=== PATIENT | female | born 1960 | race Caucasian/White ===

== ENCOUNTER 2021-01-09 14:53 | Outpatient (CLI) | payer MEDICARE, SELFPAY ==
--- NOTE | ~2021-01-09 | XR_ITS ---
XR hip LT min 2V DATE: 01/09/2021 15:41 INDICATION: Left hip pain radiating to left thigh. No known injury. TECHNIQUE: AP and lateral views COMPARISON: 06/19/2017 pelvis and bilateral hips FINDINGS: Status post left hip total arthroplasty. No fracture or dislocation, periosteal reaction or bone destruction. Status post lumbar spine surgical fusion. The left sacroiliac joint and the pubic symphysis are intact. IMPRESSION: Left total hip arthroplasty Status post lumbar spine surgical fusion Reviewed, dictated and finalized at location A.
--- NOTE | ~2021-01-09 | XR_ITS ---
EXAMINATION: XR foot LT min 3V EXAM DATE: 01/09/2021 15:42 INDICATION: Bilateral heel pain x 6 months, NKI . TECHNIQUE: Left foot dorsoplantar, lateral and oblique projections obtained and reviewed. Correlation is made to contralateral foot same date. FINDINGS: Left metatarsal bones unremarkable. There is moderate hallux valgus. Bunion. Mild polyart icular primary osteoarthritis. Calcaneus unremarkable. There are no acute fractures or dislocations i dentified. There is no subcutaneous gas. The soft tissue is unremarkable. There are no radiopaque foreign bodies. IMPRESSION: Left foot bunion, hallux valgus, mild polyarticular osteoarthritis. Reviewed, dictated and finalized at location A.
--- NOTE | ~2021-01-09 | XR_ITS ---
EXAMINATION: XR foot RT min 3V EXAM DATE: 01/09/2021 15:42 INDICATION: bilateral heel pain x 6 months. No known recent injury. TECHNIQUE: Right foot dorsoplantar, lateral and oblique projections obtained and reviewed. There is no prior study for comparison. FINDINGS: Right metatarsal bones unremarkable. There are no acute fractures or dislocations identifi ed. There is no subcutaneous gas. The soft tissue is unremarkable. There are no radiopaque foreig n bodies. There is bunion and mild hallux valgus. Mild polyarticular primary osteoarthritis. IMPRESSION: Right-sided bunion, hallux valgus, mild polyarticular osteoarthritis. Reviewed, dictated and finalized at location A. IMPRESSION: Right-sided bunion, hallux valgus, mild polyarticular osteoarthriti s.
--- NOTE | ~2021-01-09 | XR_ITS ---
XR femur LT min 2V DATE: 01/09/2021 15:41 INDICATION: Left hip pain radiating to left thigh TECHNIQUE: AP and lateral views COMPARISON: None FINDINGS: Status post posterior and interbody spinal fusion at L4-5 and L5 laminectomy. The pubic symphysis and sacroiliac joints are intact. Status post left total hip arthroplasty. No fracture, dislocation, periosteal reaction or bone destruction of the left femur. Moderate osteopenia. IMPRESSION: Status post left total hip arthroplasty Status post posterior and interbody spinal fusion at L4-5 Moderate osteopenia Reviewed, dictated and finalized at location A.
== END 2021-01-09 14:54 | disposition home or self-care (01) ==
LOC: CHSIMG 14:57
PROVIDERS: PCP Family Medicine; Visit Provider Family Medicine
DX: M79.671 Pain in right foot (principal); M25.552 Pain in left hip
CPT/HCPCS: 73502; 73552; 73630

== ENCOUNTER 2021-01-15 09:49 | Outpatient (CLI) | payer MEDICARE, SELFPAY ==
--- NOTE | ~2021-01-15 | US_ITS ---
Please refer to diagnostic mammogram report dated 01/15/2021 for details. Reviewed, dictated and finalized at location A.
--- NOTE | ~2021-01-15 | MM_ITS ---
EXAMINATION: MM diag nay implant RT w sandhya HISTORY: Palpable right breast abnormality TECHNIQUE: Additional 3-D tomosynthesis images of the right breast were performed and synthetic 2-D i mages were generated. CAD analysis was submitted and interpreted. High resolution right breast ultras ound was performed. COMPARISON: None BREAST PARENCHYMAL COMPOSITION: Breast composed of scattered areas of fibroglandular density. FINDINGS: MAMMOGRAPHIC FINDINGS: There is an 8 mm mass in the lower outer quadrant of the right breast, middle third. No discrete mass identified in the area of palpable concern. Subpectoral saline implant is present. ULTRASOUND: Limited right breast ultrasound: In the area of palpable concern at 2:00 there is a subtle heterogene ous area, measuring 8 mm in the likely benign. At 7:00, 5 cm from the nipple, there is a slightly irr egular shaped hypoechoic mass measuring 5 x 5 x 5 mm with mixed posterior attenuation, some irregular margins. No internal vascularity. This corresponds to the mass identified on mammography. IMPRESSION: 1. Slightly irregular shaped hypoechoic mass of the right breast at 7:00, 5 cm from the nipple. Ultra sound-guided right breast biopsy recommended. BI-RADS Category 4. 2. Probable benign mass in the area of palpable concern at 2:00, 6 cm from the nipple. Six-month foll ow-up right breast ultrasound recommended. Reviewed, dictated and finalized at location A. IMPRESSION: 1. Slightly irregular shaped hypoechoic mass of the right breast at 7:00, 5 cm from the nipple. Ultrasound-guided right breast biopsy recommended. BI-RADS Cat egory 4. 2. Probable benign mass in the area of palpable concern at 2:00, 6 cm from the nipple. Six-month follow-up right breast ultrasound recommended.
== END 2021-01-15 09:50 | disposition home or self-care (01) ==
PROVIDERS: PCP Family Medicine; Visit Provider Obstetrics & Gynecology
DX: N63.10 Unspecified lump in the right breast, unspecified quadrant (principal); N63.14 Unspecified lump in the right breast, lower inner quadrant
CPT/HCPCS: 76642; 77061; 77065; G0279

== ENCOUNTER 2021-01-23 10:51 | Outpatient (CLI) | payer MEDICARE, MEDICAID, SELFPAY ==
--- NOTE | ~2021-01-23 | US_ITS ---
US thyroid INDICATION: Thyroid nodule TECHNIQUE: Real-time sonographic images of the thyroid gland were obtained. COMPARISON: No prior studies for comparison. FINDINGS: The right thyroid lobe measures 3.6 x 0.8 x 1.5 cm. The left thyroid lobe measures 2.9 x 0 .9 x 1.1 cm. There is normal echotexture and echogenicity throughout the thyroid gland. No discrete n odules identified. Normal vascular flow is present. IMPRESSION: 1. Normal thyroid without discrete nodule or abnormal vascularity. Reviewed, dictated and finalized at location A.
[2021-01-23 11:08] LABS: Add Urine Microscopic? YES; Appearance Urine Clear (Clear); Basophils Absolute Auto 0.06 K/mm3 (0.00-0.10); Basophils Percent Auto 1.3 % (0.0-1.0); Bilirubin Urine Negative (Negative); Blood Urine Negative (Negative); Color Urine Yellow (Yellow); Eosinophils Absolute Auto 0.11 K/mm3 (0.02-0.50); Eosinophils Percent Auto 2.3 % (1.0-6.0); Glucose Urine UA Negative (Negative); Hematocrit 47.3 % (35.0-49.0); Hemoglobin 15.6 g/dL (12.0-15.0); Immature Granulocyte Absolute 0.01 K/mm3 (0.00-0.00); Immature Granulocyte Percent A 0.2 % (0.0-0.0); Ketones Urine Negative (Negative); Leukocyte Esterase Ur 1+ LEU/UL (Negative); Lymphocytes Absolute Auto 1.49 K/mm3 (1.10-4.50); Lymphocytes Percent Auto 31.4 % (18.0-42.0); Mean Corpuscular Hemoglobin 31.2 pg (27.0-31.0); Mean Corpuscular Volume 94.6 fL (78.0-102.0); Mean Platelet Volume 9.7 fl (9.2-11.8); Monocytes Absolute Auto 0.31 K/mm3 (0.10-0.90); Monocytes Percent Auto 6.5 % (2.0-11.0); Neutrophils Absolute Auto 2.8 K/mm3 (1.7-7.2); Neutrophils Percent Auto 58.3 % (50.0-70.0); Nitrate Urine Positive (Negative); Platelet Count Result 204 K/mm3 (150-420); Protein Urine Negative (Negative); Specific Grav Ur 1.015 (1.010-1.020); White Blood Count 4.8 K/mm3 (4.8-10.8); pH Urine 7.5 (5.0-8.0)
[2021-01-23 11:15] LABS: Bacteria Urine 3+ /hpf; RBC Urine None seen /hpf (0-2); Squamous Epithelial Cell Urine Few /hpf (Few)
[2021-01-23 11:49] LABS: Hemoglobin A1C 4.9 % (<5.7)
[2021-01-23 12:25] LABS: Alanine Aminotransferase 53 U/L (14-59); Alkaline Phosphatase 148 U/L (46-116); Anion Gap 8 mmol/L (8-16); Aspartate Amino Transferase 38 U/L (15-37); Bilirubin,Total 0.5 mg/dL (0.00-1.00); Blood Urea Nitrogen 14 mg/dL (7-18); Calcium 9.2 mg/dL (8.5-10.1); Carbon Dioxide 30 mmol/L (21-32); Chloride 105 mmol/L (98-108); Cholesterol 174 mg/dL (0-200); Estimated Glomerular Filt Rate 45; Folic Acid 17.2 ng/mL (8.6->20); Glucose 100 mg/dL (70-99); HDL Direct 51 mg/dL (40-60); LDL Cholesterol Calculated 110 mg/dL (<130); Magnesium 1.9 mg/dL (1.8-2.4); Osmolality Calculated 296 mOsm/kg (285-295); Potassium 4.5 mmol/L (3.5-5.1); Sodium 143 mmol/L (136-145); Total Protein 6.6 g/dL (6.4-8.2); Triglycerides 67 mg/dL (0-150); Uric Acid 4.1 mg/dL (2.6-6.0); Vitamin B12 416 pg/mL (193-986)
[2021-01-23 12:46] LABS: Thyroid Stimulating Hormone Reflex 1.84 u/IU/mL (0.36-3.74)
[2021-01-26 12:29] LABS: Vitamin D 25 Hydroxy 58 ng/mL (30-100)
== END 2021-01-23 10:52 | disposition home or self-care (01) ==
LOC: CHSIMG 10:54
PROVIDERS: PCP Family Medicine; Visit Provider Family Medicine
DX: M13.0 Polyarthritis, unspecified (principal); I10 Essential (primary) hypertension; D64.9 Anemia, unspecified; M10.09 Idiopathic gout, multiple sites; E78.5 Hyperlipidemia, unspecified; E53.8 Deficiency of other specified B group vitamins; E04.1 Nontoxic single thyroid nodule; E66.01 Morbid (severe) obesity due to excess calories; R82.90 Unspecified abnormal findings in urine; G89.4 Chronic pain syndrome; Z79.899 Other long term (current) drug therapy
CPT/HCPCS: 36415; 76536; 80053; 80061; 81001; 82306; 82607; 82746; 83036; 83735; 84443; 84550; 85025; 87077; 87086; 87088; 87186

== ENCOUNTER 2021-02-10 19:42 | Emergency (ER) | payer MEDICARE, MEDICAID, SELFPAY ==
--- NOTE | ~2021-02-10 | XR_ITS ---
EXAMINATION: XR foot LT min 3V EXAM DATE: 02/10/2021 21:40 INDICATION: Fall, left foot pain and numbness, dorsal pain. Initial encounter. TECHNIQUE: Left foot dorsoplantar, lateral and oblique projections obtained and reviewed. Comparison is made to prior examination from 01/09/2021. FINDINGS: Acute closed posttraumatic avulsion fracture at the left 5th proximal phalangeal base medi ally, with the fracture fragment pulled proximally to the level of the joint space. The phalanx is in expected position, not subluxed. Also acute closed posttraumatic fractures of the necks of the 3rd and 4th metatarsal bones. There is overlying soft tissue swelling. Findings are new compared to prior study. There is moderate hallux va lgus and mild 1st MTP osteoarthritis. IMPRESSION: 1. Left 5th proximal phalangeal base avulsion fracture. 2. 4th and 3rd metatarsal neck fractures. Reviewed, dictated and finalized at location A.
--- NOTE | ~2021-02-10 | XR_ITS ---
EXAMINATION: XR tibia fibula LT 2V EXAM DATE: 02/10/2021 21:41 INDICATION: Initial encounter following injury, with pain of the left tibia/fibula. TECHNIQUE: Left tibia/fibula frontal and lateral projections obtained and reviewed. There is no prio r study for comparison. FINDINGS: Left tibial and fibular shafts unremarkable. There are no acute fractures or dislocations identified. There is no subcutaneous gas. The soft tissue is unremarkable. There are no radiopaqu e foreign bodies. IMPRESSION: 1. XR tibia fibula LT 2V exam without acute osseous findings. Reviewed, dictated and finalized at location A.
--- NOTE | ~2021-02-10 | CT_ITS ---
EXAMINATION: CT lumbar spine wo [facility] EXAM DATE: 02/10/2021 21:31 INDICATION: Fall, back pain. Left foot numbness. TECHNIQUE: Spiral CT lumbar spine was performed without contrast. Axial, coronal and sagittal images of the lumbar spine were reviewed. The dose-length product (DLP) for this examination was 1500.94 mGy -cm. The exposure was tailored according to patient size (auto mA exposure control), and iterative r econstruction (ASIR) was used as additional dose reduction technique. There is no prior study for co mparison. FINDINGS: Mild to moderate lumbar levoscoliosis centered at the L1 level. Posterior fusion hardware L4-5. The p edicular screws appear well seated. Moderate to severe disc disease L2-3 and L3-4 and at the lower th oracic levels. Mild compression fracture of T11, but without acute fracture line identified. There i s no evidence of acute lumbar fracture. There is no disc space widening or traumatic vertebral body subluxation suspected. Paraspinal soft tissue is unremarkable. Gastric surgical changes. Hip replac ement hardware. Sacroiliac joints are intact. Overall moderate lumbar facet arthropathy. Moderate to severe left, moderate right neural foraminal stenosis L3-4 and L4-5. A detailed level by level evalua tion of spondylosis can be added as addendum if requested. IMPRESSION: 1. No acute lumbar findings. 2. Intact L4-5 fusion. 3. Mild to moderate levoscoliosis. 4. Chronic T11 compression. 5. Spondylosis. Reviewed, dictated and finalized at location A.
--- NOTE | ~2021-02-10 | XR_ITS ---
EXAMINATION: XR tibia fibula RT 2V EXAM DATE: 02/10/2021 21:51 INDICATION: Right tibial pain. Injury, initial encounter. TECHNIQUE: Right tibia/fibula frontal and lateral projections obtained and reviewed. There is no riccardo or study for comparison. FINDINGS: Right tibial and fibular shafts unremarkable. There are no acute fractures or dislocations identified. There is no subcutaneous gas. The soft tissue is unremarkable. There are no radiopaq ue foreign bodies. IMPRESSION: 1. XR tibia fibula RT 2V exam without acute osseous findings. Reviewed, dictated and finalized at location A.
[2021-02-10 20:45] VITALS: BP 113/73; PULSE 89; RESP 15; TEMP 36.6; O2SAT 94
--- NOTE | 2021-02-10 20:53 | ED.FALL ---
HPI - Fall General Chief Complaint: Fall Stated Complaint: fell off ladder Time Seen by Provider: 02/10/21 20:53 Source: patient Mode of arrival: ambulatory Limitations: no limitations History of Present Illness HPI Narrative: 7-year-old woman with a history of low back pain and lumbar spine surgery comes in today complaining of pain in her lower legs bilaterally and her left foot. Patient states she also has some low back pain. She states that she was standing on the 3rd step of a ladder at home when she lost her balance and fell. She had no upper back, neck or head injuries. She drove herself here today. complaint: fall Onset (ago): hour(s) Fall from: from height (distance) ( Three ladder steps) Fall witnessed: no Place fall occurred: home Loss of consciousness: none Prolonged down time: no Symptoms prior to fall: none Context: tripped/slipped Location of injury: back Location of injury - extremities: Left: foot and Bilateral: lower leg Related Data Home Medications Medication Instructions Recorded Confirmed allopurinol 100 mg PO DAILY 02/10/21 02/10/21 buspirone 30 mg PO DAILY 02/10/21 02/10/21 carvedilol 6,025 mg PO BID 02/10/21 02/10/21 diazepam 10 mg PO DAILY 02/10/21 02/10/21 duloxetine 60 mg PO DAILY 02/10/21 02/10/21 gabapentin 800 mg PO TID 02/10/21 02/10/21 hydroxyzine HCl 50 mg PO TID 02/10/21 02/10/21 meloxicam 7.5 mg PO DAILY 02/10/21 02/10/21 omeprazole 20 mg PO DAILY 02/10/21 02/10/21 phentermine 30 mg PO DAILY 02/10/21 02/10/21 quetiapine 50 mg PO DAILY 02/10/21 02/10/21 quetiapine 100 mg PO DAILY 02/10/21 02/10/21 sertraline 50 mg PO DAILY 02/10/21 02/10/21 sertraline 100 mg PO DAILY 02/10/21 02/10/21 tizanidine 4 mg PO DAILY 02/10/21 02/10/21 Allergies Allergy/AdvReac Type Severity Reaction Status Date / Time No Known Allergies Allergy Unverified 02/01/18 14:35 Review of Systems Constitutional: Constitutional: Denies chills and Denies fever(s) Eyes: Eyes: Denies change in vision and Denies photophobia ENT: Denies nasal congestion and Denies sore throat Cardiovascular: Cardiovascular: Denies chest pain and Denies radiating jaw, neck or arm pain Respiratory: Respiratory: Denies cough and Denies dyspnea Gastrointestinal: Gastrointestinal: Denies abdominal pain, Denies nausea and Denies vomiting Genitourinary: Genitourinary: Denies nocturia and Denies dysuria Integumentary/Breasts: Skin/Breast: Denies pruritus, Denies erythema and Denies rash Neurologic: Denies vertigo, Denies dizziness, Denies syncope, Denies headache(s), Denies focal weakness and Reports numbness ( left distal foot) Hematologic/Lymphatic: Hematologic/Lymphatic: Denies easy bleeding and Denies easy bruising PMFSH Past Medical History Medical History Anemia Anxiety Depression GERD (gastroesophageal reflux disease) Hypertension Surgical History Surgical History H/O gastric bypass H/O lumbosacral spine surgery History of hip surgery Hx of cholecystectomy Family History Family History (Updated 05/02/17 @ 13:47 by DOCTOR UNKNOWN) Other Diabetes mellitus Social History Social History Smoking status: Never smoker Alcohol intake: current Exam Const: General: alert Orientation/consciousness: patient oriented x3 Limitations: no limitations Other: moderate acute distress. HENMT: Head: normal to inspection Ears: external ears normal General nose exam: Normal nares present Face and sinus: normal facial exam Mouth: Yes moist mucous membranes Throat: posterior oropharynx normal Eyes: Conjunctivae: conjunctivae normal Pupils: Equal, round and reactive pupils present EOM: EOMs intact bilaterally Neck: Neck: normal visual inspection Other: No midline tenderness. Normal range of motion. Resp: Effort & Inspection: amandeep
[2021-02-10 23:30] VITALS: BP 116/70; PULSE 83; RESP 14; O2SAT 100
== END 2021-02-10 23:30 | disposition home or self-care (01) ==
PROVIDERS: Emergency Provider Emergency Medicine; PCP Family Medicine
DX: S92.302A Fracture of unspecified metatarsal bone(s), left foot, initial encounter for closed fracture (principal); S92.502A Displaced unspecified fracture of left lesser toe(s), initial encounter for closed fracture; W11.XXXA Fall on and from ladder, initial encounter; K21.9 Gastro-esophageal reflux disease without esophagitis; I10 Essential (primary) hypertension
CPT/HCPCS: 72131; 73590; 73630; 99283; 99284; L2112

== ENCOUNTER 2021-04-02 08:14 | Outpatient (CLI) | payer MEDICARE, MEDICAID, SELFPAY ==
--- NOTE | ~2021-04-02 | XR_ITS ---
XR foot LT min 3V DATE: 04/02/2021 08:34 INDICATION: Left foot pain TECHNIQUE: 4 views COMPARISON: 02/27/2021 left foot FINDINGS: There is prominent callus formation at the minimally displaced fracture at the neck of the third metatarsal bone and lesser callus at the virtually nondisplaced fracture of the neck of the fou rth metatarsal bone. Hallux valgus and bunion deformity. Mild osteoarthritis at the first metatarsophalangeal joint. Os tibiale externum, normal variant. IMPRESSION: Healing fractures of the The third and fourth metatarsal bones, without interval change in position or alignment since 02/28/20 21 Reviewed, dictated and finalized at location B. IMPRESSION: Healing fractures of the The third and fourth metatarsal bones, without interval change in position or a lignment since 02/27/2021
== END 2021-04-02 08:15 | disposition home or self-care (01) ==
LOC: CHSIMG 08:17
PROVIDERS: PCP Family Medicine; Visit Provider Orthopaedic Surgery
DX: M79.672 Pain in left foot (principal)
CPT/HCPCS: 73630

== ENCOUNTER 2021-06-10 04:22 | Inpatient (IN) | payer MEDICARE, MEDICAID, SELFPAY ==
[2021-06-10] VITALS (12 sets, daily range): BP systolic 125–157; BP diastolic 74–99; PULSE 74–88; RESP 16–20; TEMP 36.1–36.6; O2SAT 88–100; BMI 33.7
--- NOTE | ~2021-06-10 | CT_ITS ---
EXAMINATION: CT brain wo con DATE: 06/10/2021 05:16 INDICATION: Unresponsiveness TECHNIQUE: Computed tomography (CT) of the head was performed without intravenous contrast. The mA wa s adjusted according to patient size. Iterative reconstruction technique was employed. Exam dose: 68 1.00 mGy-cm total exam DLP. COMPARISON: None FINDINGS: Bilateral carotid siphon internal carotid artery calcifications. No intracranial mass lesion or hemorrhage or cerebrovascular accident. No midline shift or mass effec t. Normal ventricular size. No subdural or epidural hematoma. No orbital mass lesion. No fracture or bone destruction of the cranial vault. The paranasal sinuses and mastoid air cells are normally developed and aerated. IMPRESSION: No significant abnormality Reviewed, dictated and finalized at [facility]. Reviewed, dictated and finalized at [facility]. IMPRESSION: No significant abnormality
--- NOTE | 2021-06-10 04:28 | ECG_ITS ---
Measurements Intervals [place] Rate: 89 P: 46 NH: 193 QRS: -6 QRSD: 81 T: 8 QT: 326 QTc: 397 Interpretive Statements SINUS RHYTHM LOW QRS VOLTAGE IN PRECORDIAL LEADS CANNOT RULE OUT SEPTAL INFARCT, AGE INDETERMINATE CONSIDER INFERIOR INFARCT, AGE INDETERMINATE BASELINE ARTIFACT- I, II, III, AVR, AVL, AVF, V1-V6 ABNORMAL ECG Electronically Signed On 06-11-2021 8:20:37 CDT by Romeo Valdez D.O.
[2021-06-10] MEDS: SODIUM CHLORIDE 0.9% IV 1,000 ML 999 ML IV CONT (04:40)
--- NOTE | 2021-06-10 04:44 | PC.NURSE ---
dry heaves noted, no emesis
[2021-06-10] MEDS: flumazeniL 0.5 MG/5 ML VIAL 0.2 MG IV PUSH (04:50)
[2021-06-10] MEDS: ONDANSETRON INJ 4 MG/2 ML VIAL IV PUSH (04:50)
--- NOTE | 2021-06-10 04:54 | PC.NURSE ---
oxygen applied per nasal cannula for po 88% 2L increase to 89% then increase to 4 L NC, po up to 94%
--- NOTE | 2021-06-10 05:00 | PC.NURSE ---
[facility]
--- NOTE | 2021-06-10 05:00 | PC.NURSE ---
Pts VSS remain stable, PC notified and orders relayed to ERP Dr Keith. Mon. shows SR, pt remains nonverbal and will open her eyes but is difficult for her to focus, eill not follow commands at this time.
[2021-06-10 05:05] LABS: Base Excess ABG -1.7 mmol/L (0-2); Basophils Absolute Auto 0.06 K/mm3 (0.00-0.10); Basophils Percent Auto 1.1 % (0.0-1.0); Eosinophils Absolute Auto 0.11 K/mm3 (0.02-0.50); Eosinophils Percent Auto 2.1 % (1.0-6.0); HCO3 ABG 23.2 mmol/L (23-29); Hematocrit 45.5 % (35.0-49.0); Immature Granulocyte Absolute 0.02 K/mm3 (0.00-0.00); Immature Granulocyte Percent A 0.4 % (0.0-0.0); Lymphocytes Absolute Auto 1.35 K/mm3 (1.10-4.50); Lymphocytes Percent Auto 25.6 % (18.0-42.0); Mean Corpuscular Hemoglobin 31.8 pg (27.0-31.0); Mean Corpuscular Volume 96.6 fL (78.0-102.0); Mean Platelet Volume 9.6 fl (9.2-11.8); Monocytes Absolute Auto 0.43 K/mm3 (0.10-0.90); Monocytes Percent Auto 8.1 % (2.0-11.0); Neutrophils Absolute Auto 3.3 K/mm3 (1.7-7.2); Neutrophils Percent Auto 62.7 % (50.0-70.0); Oxygen Content ABG 18.3 %vol (16.0-22.0); Oxygen Saturation ABG 93.8 % (95-97); Oxyhemoglobin 93.3 % (94-100); PCO2 ABG 40.1 mmHg (35-45); PO2 ABG 85.6 mmHg (80-90); Platelet Count Result 217 K/mm3 (150-420); Red Blood Count 4.71 M/mm3 (4.20-5.40); Red Cell Distribution Width 13.4 % (11.6-14.4); Total Hemoglobin 13.9 g/dL (12.0-18.0); White Blood Count 5.3 K/mm3 (4.8-10.8); pH ABG 7.38 (7.35-7.45)
[2021-06-10 05:12] LABS: Device NASAL CANNULA; Modified Allen's Test Pass; Site Drawn RIGHT RADIAL
[2021-06-10 05:22] LABS: Lactic Acid Reflex 2.2 mmol/L (0.4-2.0)
[2021-06-10 05:27] LABS: Partial Thromboplastin Time 29.8 SEC (23.90-30.70); Prothrombin Time 10.7 Seconds (9.50-12.10)
[2021-06-10 05:27] LABS: Alanine Aminotransferase 67 U/L (14-59); Albumin Level 3.9 g/dL (3.4-5.0); Alkaline Phosphatase 116 U/L (46-116); Anion Gap 11 mmol/L (8-16); Aspartate Amino Transferase 36 U/L (15-37); Bilirubin,Total 0.5 mg/dL (0.00-1.00); Blood Urea Nitrogen 12 mg/dL (7-18); Calcium 9.3 mg/dL (8.5-10.1); Carbon Dioxide 26 mmol/L (21-32); Chloride 107 mmol/L (98-108); Estimated CRCL calculation 64 ml/min; Estimated Glomerular Filt Rate 52; Glucose 107 mg/dL (70-99); Osmolality Calculated 297 mOsm/kg (285-295); Potassium 3.9 mmol/L (3.5-5.1); Salicylate 1.3 mg/dL (2.8-20.0); Sodium 144 mmol/L (136-145); Thyroid Stimulating Hormone 2.05 uIU/mL (0.36-3.74); Total Protein 6.8 g/dL (6.4-8.2)
[2021-06-10 05:29] LABS: Acetaminophen < 2 ug/mL (10-30); Ethanol < 3 mg/dL (0-6)
[2021-06-10 05:30] LABS: Creatine Kinase 41 U/L (26-192); Magnesium 1.8 mg/dL (1.8-2.4)
--- NOTE | 2021-06-10 05:38 | ED.OVERDOSE ---
HPI - Overdose General Chief Complaint: Overdose Stated Complaint: possible ovedose Source: family and EMS Mode of arrival: EMS Limitations: altered mental status History of Present Illness HPI Narrative: This is a 61-year-old female that presents via EMS with altered mental status after apparent unintentional overdose with multitude of medications not clear what she took but does have history of depression anxiety possible psychosis and chronic pain. The patient apparently called her niece is III to 330 in the morning saying that she thinks she took too much of her nighttime medication. Brought in by EMS the patient is responsive to verbal stimuli but nonverbal, responsive to pain stimuli will arouse when when spoken to and is trying to verbalize few words when asked what her name is and where she lives what her ages. Otherwise her vitals are stable blood pressure is 125/99 O2 sats on 2L are nearly 98 to 100%. Patient is afebrile and vitals are stable. , heart rate is 87 again with a blood pressure of 125/99. MD complaint: accidental overdose Onset (ago): hour(s) Time: 03:38 Timing confirmed by: family member How Overdose Was Discovered: called family/friend Related Data Home Medications Medication Instructions Recorded Confirmed allopurinol 100 mg PO DAILY 02/10/21 05/17/21 duloxetine 60 mg PO DAILY 02/10/21 05/17/21 gabapentin 800 mg PO TID 02/10/21 05/17/21 hydroxyzine HCl 50 mg PO TID 02/10/21 05/17/21 omeprazole 20 mg PO BID 02/10/21 05/17/21 quetiapine 50 mg PO DAILY 02/10/21 05/17/21 quetiapine 100 mg PO DAILY 02/10/21 05/17/21 amitriptyline 150 mg tablet 150 mg PO QHS 02/13/21 05/17/21 calcium citrate 200 mg (950 mg) 1,200 mg PO DAILY tablet 02/13/21 05/17/21 tablet cholecalciferol (vitamin D3) 125 125 mcg PO DAILY 02/13/21 05/17/21 mcg (5,000 unit) capsule carvedilol 6.25 mg PO BID 05/17/21 05/17/21 baclofen 20 mg PO BID PRN 06/10/21 06/10/21 buspirone 10 mg PO TID 06/10/21 06/10/21 diazepam 5 mg PO DAILY PRN 06/10/21 06/10/21 hydrocodone-acetaminophen 1 tablet PO Q6-8H PRN 06/10/21 06/10/21 meloxicam 7.5 mg PO DAILY PRN 06/10/21 06/10/21 sertraline 150 mg PO DAILY 06/10/21 06/10/21 tizanidine 4 mg PO DAILY PRN 06/10/21 06/10/21 Allergies Allergy/AdvReac Type Severity Reaction Status Date / Time clindamycin Allergy Severe Itching Verified 05/17/21 15:53 hydromorphone [From Dilaudid] Allergy Severe Itching Verified 05/17/21 15:53 morphine Allergy Severe Itching Verified 05/17/21 15:53 tramadol AdvReac Severe Palpitation Verified 05/17/21 15:53 s Review of Systems Review of Systems: All systems reviewed & are unremarkable except as noted in HPI and below PMFSH Past Medical History Medical History Acquired hallux valgus of left foot Anemia Anxiety Arthritis Depression Dermatillomania GERD (gastroesophageal reflux disease) History of MRSA infection Hypertension Metatarsal bone fracture Wears glasses Weight gain Surgical History Surgical History H/O gastric bypass H/O lumbosacral spine surgery History of breast lift History of hip surgery History of melanoma excision Hx of cholecystectomy Family History Family History Other Arthritis Depression Diabetes mellitus Esophageal cancer Heart disease High cholesterol Hypertension Neuropathy Social History Social History Smoking status: Never smoker Alcohol intake: current Alcohol use details: 2-3 per month Substance use: never Substance use type: does not use Gender identity (if verbalized by the patient): Female Spiritual care concerns: No Exam Const: Limitations: altered mental status HENMT: Head: normal to inspection Eyes: Conjunctivae: conjunctivae normal Neck: Neck: normal
--- NOTE | 2021-06-10 05:52 | PC.NURSE ---
Addendum entered by Vanda Orourke RN 06/10/21 05:54: Per Natividad at , will need to redraw Tylenol level in 4 hrs. and repeat EKG in 4 hrs. Case # [id number]. Original Note: Leann Henson at , will continue to monitor pt
[2021-06-10 05:56] LABS: Amphetamine Screen Urine Negative (Negative); Barbiturate Screen Urine Negative (Negative); Benzodiazepines Screen Urine Negative (Negative); Cannabinoid Screen Urine Negative (Negative); Cocaine Screen Urine Negative (Negative); Methadone Screen Urine Negative (Negative); Opiate Screen Urine Negative (Negative); Phencyclidine Screen Urine Negative (Negative)
--- NOTE | 2021-06-10 06:01 | PC.NURSE ---
Spoke c pts niece, who is at bedside. ERP discussed POC to admit pt for monitoring and observation and for repeat lab testing.
[2021-06-10 06:05] LABS: SARS-CoV-2 RNA PCR Negative (Negative)
--- NOTE | 2021-06-10 06:20 | PC.NURSE ---
Call back to PC c updated lab results. Orders to continue to monitor and repeat Tylenol level and EKG in 4 hrs. Call to floor for bed assignment. Pt will go to Rm 206.
--- NOTE | 2021-06-10 07:10 | PC.NURSE ---
Patient arrival to second floor from ER with Dx overdose via stretcher. Transfer onto Bed in room 206 A. Eyes open moving rapid left to right lower extremities up and down with feet moving uncontrolling. Respirations even nonlabored no distress noted at this time. Bilateral upper extremities flaccid condition. Right arm with20 g. IV infusing NS @ 100ml/hour. Abd soft round with bowel sounds all quads. Unresponsive to verbal stimuli. Side rails all placed up. Wahl Cath patent draining light Edita urine. 950cc emptied at this time. Will continue to monitor and observe. Turn / reposition every 2 hours. Poison Control to be notified with EKG report when done. QRS to be important noted to them. Will be done by SHARI Rainey.
--- NOTE | 2021-06-10 09:50 | ECG_ITS ---
Measurements Intervals [place] Rate: 97 P: 62 SD: 169 QRS: 14 QRSD: 90 T: 15 QT: 336 QTc: 428 Interpretive Statements SINUS RHYTHM BASELINE ARTIFACT- I, II, III, AVR, AVL, AVF, V1-V6 NORMAL ECG Electronically Signed On 06-11-2021 8:21:07 CDT by Romeo Valdez D.O.
--- NOTE | 2021-06-10 09:55 | PC.NURSE ---
Poison control called to update on repeat EKG. Poison control worker will call back to check in on repeat EKG.
[2021-06-10] MEDS: LORazepam INJ (*CRX) 2 MG/ML VIAL IV PUSH ×2 (10:00→17:56)
[2021-06-10 10:12] LABS: Alanine Aminotransferase 54 U/L (14-59); Albumin Level 3.2 g/dL (3.4-5.0); Alkaline Phosphatase 100 U/L (46-116); Anion Gap 7 mmol/L (8-16); Aspartate Amino Transferase 31 U/L (15-37); Bilirubin,Total 0.4 mg/dL (0.00-1.00); Blood Urea Nitrogen 10 mg/dL (7-18); Calcium 8.8 mg/dL (8.5-10.1); Carbon Dioxide 26 mmol/L (21-32); Chloride 111 mmol/L (98-108); Estimated CRCL calculation 72 ml/min; Estimated Glomerular Filt Rate > 60; Glucose 86 mg/dL (70-99); Magnesium 1.7 mg/dL (1.8-2.4); Osmolality Calculated 296 mOsm/kg (285-295); Potassium 4.2 mmol/L (3.5-5.1); Sodium 144 mmol/L (136-145)
[2021-06-10 10:13] LABS: Lactic Acid 1.2 mmol/L (0.4-2.0)
[2021-06-10 10:15] LABS: Acetaminophen < 2 ug/mL (10-30)
--- NOTE | 2021-06-10 11:22 | PC.NURSE ---
Patient sleeping sammie hose not applied at this time.
--- NOTE | 2021-06-10 11:25 | PM.IMHP ---
H&P: HPI History of Present Illness Date/Time: 06/10/21 11:25 this is a 61-year-old female who presented to our emergency department due to overdose. Patient has a past medical history of anemia, anxiety, arthritis, depression, GERD, and hypertension. Patient is currently unresponsive all information obtained from medical records according to medical records patient called her niece at approximately 3:30 in the morning to inform her that she believes she took too much of her medication. When they arrived to her house patient was unresponsive and and nonverbal. Patient's vital signs pulse 150/96, 88, 20, 97.3, 100% on 3 L nasal cannula, WBCs 5.3 hemoglobin 15, hematocrit 45.5, platelets 217, sodium 144, potassium 3.9, BUN 12, creatinine 1.07, glucose 107, lactic acid 2.2, magnesium 1.8, AST 36, ALT 67, CK 41, toxicology negative, Covid negative, head CT unremarkable, EKG sinus rhythm. Recommend monitoring the patient for 12 to 24-hour patient was given Narcan and flumazenil in the ED. overdose appeared to be unintentional. This day of assessment patient remains unresponsive with fixed pupils, tremors positive for myoclonus Babinski sign negative. Chief Complaint: AMS Review of Systems Review of Systems: ROS unobtainable: Yes unobtainable due to medical condition and unobtainable due to mental status PMFSH Past Medical History Medical History Acquired hallux valgus of left foot Anemia Anxiety Arthritis Depression Dermatillomania GERD (gastroesophageal reflux disease) History of MRSA infection Hypertension Metatarsal bone fracture Wears glasses Weight gain Surgical History Surgical History H/O gastric bypass H/O lumbosacral spine surgery History of breast lift History of hip surgery History of melanoma excision Hx of cholecystectomy Family History Family History Other Arthritis Depression Diabetes mellitus Esophageal cancer Heart disease High cholesterol Hypertension Neuropathy Social History Social History Smoking status: Never smoker Alcohol intake: current Alcohol use details: 2-3 per month Substance use: never Substance use type: does not use Gender identity (if verbalized by the patient): Female Spiritual care concerns: No Meds Home Medications and Allergies Home Medications Medication Instructions Recorded Confirmed Type allopurinol 100 mg PO DAILY 02/10/21 06/10/21 History duloxetine 60 mg PO DAILY 02/10/21 06/10/21 History gabapentin 800 mg PO TID 02/10/21 06/10/21 History hydroxyzine HCl 50 mg PO TID 02/10/21 06/10/21 History omeprazole 20 mg PO BID 02/10/21 06/10/21 History quetiapine 50 mg PO DAILY 02/10/21 06/10/21 History quetiapine 100 mg PO DAILY 02/10/21 06/10/21 History amitriptyline 150 mg tablet 150 mg PO QHS 02/13/21 06/10/21 History calcium citrate 200 mg (950 mg) 1,200 mg PO DAILY tablet 02/13/21 06/10/21 History tablet cholecalciferol (vitamin D3) 125 125 mcg PO DAILY 02/13/21 06/10/21 History mcg (5,000 unit) capsule carvedilol 6.25 mg PO BID 05/17/21 06/10/21 History baclofen 20 mg PO BID PRN 06/10/21 06/10/21 History buspirone 10 mg PO TID 06/10/21 06/10/21 History diazepam 5 mg PO DAILY PRN 06/10/21 06/10/21 History hydrocodone-acetaminophen 1 tablet PO Q6-8H PRN 06/10/21 06/10/21 History meloxicam 7.5 mg PO DAILY PRN 06/10/21 06/10/21 History sertraline 150 mg PO DAILY 06/10/21 06/10/21 History tizanidine 4 mg PO DAILY PRN 06/10/21 06/10/21 History Allergies Allergy/AdvReac Type Severity Reaction Status Date / Time clindamycin Allergy Severe Itching Verified 05/17/21 15:53 hydromorphone [From Dilaudid] Allergy Severe Itching Verified 05/17/21 15:53 morphine Allergy Severe Itching Verified 05/17/21 15:53 tramadol AdvReac Juliana
--- NOTE | 2021-06-10 15:53 | PC.NURSE ---
Call received from Poison Control. Updated on VS and most recent lab results. No change with POC at this time.
[2021-06-10] MEDS: SODIUM CHLORIDE 0.9% IV 1,000 ML 100 ML IV CONT (16:40)
--- NOTE | 2021-06-10 16:42 | PC.NURSE ---
IV from ER infused /complete. New bag infusing/started.
--- NOTE | 2021-06-10 17:45 | PC.NURSE ---
Monica starting to move feet and legs with kicking down into mattress. Eyes open responding with moan sounds unable to speak at this time. RN made aware, Ativan to be given IVP.
--- NOTE | 2021-06-10 22:38 | PC.NURSE ---
pt complaint of back pain , charge nurse notified. no order for pain medication noted. charge nurse to call dr oneill
--- NOTE | 2021-06-10 23:23 | PC.NURSE ---
report to SHARI Mayes
[2021-06-10] MEDS: ACETAMINOPHEN 500 MG TABLET 1000 MG PO (23:46)
[2021-06-11] VITALS: BP 138/84; PULSE 72; PULSE 89; RESP 18; TEMP 36.6; O2SAT 97
--- NOTE | 2021-06-11 | PC.NURSE ---
Patient did not answer questions to perform neuro-check but did follow commands. Hand grasp weak dianne. but would hold bedrail to assist with turn. Frequently asked to be repositioned on side but then turned back to back immediately, asked for heel protectors to be replaced on feet dianne. and patient then kicked them off and repeated request. This nurse repositioned patient on same side three times and replaced heel protectors twice and repositioned arm three times requiring forty minutes to meet patient requests. This nurse was unable to leave room during that time.
--- NOTE | 2021-06-11 00:50 | PC.NURSE ---
Patient had kicked off heel protectors and asked to be turned on side and heel protectors replaced. Continues to bend arm disrupting IV fluid administration. Angeli MCCARTHYtopographical drafter Nurse repositioned patient on side and placed two pillows behind back, and between legs and replaced heel protectors. Reminded patient to keep arm straight.
--- NOTE | 2021-06-11 01:44 | PC.NURSE ---
Spoke with Natividad at [facility] Control and given condition updated. Natividad stated patient needed Psych eval prior to DC when medically cleared. Angeli MCCARTHYbusiness office coordinator Nurse informed.
--- NOTE | 2021-06-11 02:56 | PC.NURSE ---
Addendum entered by Angeli Gold RN 06/11/21 03:08: Addendum entered due to computer suddenly saying waiting for client server programmer and then note closed. Patient says she did finally dial correctly and reached her niece and told her she took too many pills. Patient says she doesn't remember coming to the hospital. Original Note: Patient used call light to call nurse to room saying her cords were all tangled up. Nurse entered room and patient had most of the tape pulled off of IV site, had O2 tubing tangled in IV tubing and had Telemetry wires wrapped around one hand while she had one of her socks on the other hand. Nurse secured IV site and untangled all the cords. After that the patient started asking about nurses she'd had throughout the day, by name. Patient then started telling this nurse about how she came to be @ the hospital, though she thought she was @ [facility]. Patient told this nurse that she had been to the Dr and she's told him she wanted something different then her Tizanidine, and he changed it to Baclofen. Patient said the Dr had told her to be careful and not to take the two meds together. Patient said she already had all her meds sorted in her organizer for 2 weeks and couldn't remember which one she was supposed to take out. She took one pill out and took the rest. Patient said not long after that she felt terrible and couldn't move around much. Patient said she had her phone in her hand but couldn't dial correctly to call her niece and ended up calling her ex-boyfriend instead and so she hung up. Patient says she did then call her niece but it went to voicemail so she hung up. Patient said she knew she was going to . Patient says she laid her head on the table and doesn't know how long she was there. Patient says she kept waking up off and on but couldn't function and again said she knew she was going to but that Jono kept waking her up. Patient says she thought if she could just get to the floor she could lay down, but that as she tried to get to floor she kind of half fell instead. Patient says she did finally dial correctly and reah
[2021-06-11 03:19] VITALS: PULSE 93
[2021-06-11] MEDS: SODIUM CHLORIDE 0.9% IV 1,000 ML 100 ML IV CONT (03:41)
[2021-06-11 04:11] VITALS: BP 123/70; PULSE 78; RESP 18; TEMP 36.7; O2SAT 100
--- NOTE | 2021-06-11 04:13 | PC.NURSE ---
Given fresh ice water, stated that's not water, something was put in it. This nurse assured patient it was water only, she states doesnt taste like water, This nurse called Renata Suh RN to get another glass of water. Patient given water and states tastes okay.
--- NOTE | 2021-06-11 04:54 | PC.NURSE ---
Patient states she doesn't want the water brought in by Charge Nurse and this nurse, states, it tastes funny.
[2021-06-11 05:22] LABS: Hematocrit 45.7 % (35.0-49.0); Hemoglobin 13.8 g/dL (12.0-15.0); Mean Corpuscular HGB Conc 30.2 g/dL (32.0-36.0); Mean Corpuscular Hemoglobin 31.9 pg (27.0-31.0); Mean Corpuscular Volume 105.5 fL (78.0-102.0); Mean Platelet Volume 9.4 fl (9.2-11.8); Platelet Count Result 213 K/mm3 (150-420); Red Blood Count 4.33 M/mm3 (4.20-5.40); Red Cell Distribution Width 13.6 % (11.6-14.4)
[2021-06-11 05:46] LABS: Alanine Aminotransferase 55 U/L (14-59); Albumin Level 3.3 g/dL (3.4-5.0); Alkaline Phosphatase 98 U/L (46-116); Anion Gap 10 mmol/L (8-16); Aspartate Amino Transferase 34 U/L (15-37); Bilirubin,Total 0.5 mg/dL (0.00-1.00); Blood Urea Nitrogen 10 mg/dL (7-18); Calcium 8.4 mg/dL (8.5-10.1); Carbon Dioxide 26 mmol/L (21-32); Chloride 108 mmol/L (98-108); Estimated CRCL calculation 72 ml/min; Estimated Glomerular Filt Rate > 60; Glucose 80 mg/dL (70-99); Magnesium 1.6 mg/dL (1.8-2.4); Osmolality Calculated 296 mOsm/kg (285-295); Potassium 3.8 mmol/L (3.5-5.1); Sodium 144 mmol/L (136-145); Total Protein 5.8 g/dL (6.4-8.2)
--- NOTE | 2021-06-11 07:16 | PC.NURSE ---
Patient rounding completed. Patient is resting in bed.
--- NOTE | 2021-06-11 07:49 | PC.NURSE ---
Patient alert and awake, asking where she is. Oriented patient to time and place. Patient asking if she has anyone here for her. SN explained the no visitor policy. Patient states she needs a few minutes to get her bearings.
[2021-06-11 08:00] VITALS: BP 128/82; PULSE 109; PULSE 97; RESP 18; TEMP 36.6; O2SAT 95
--- NOTE | 2021-06-11 08:07 | PC.NURSE ---
Patient rounding completed. Patient is resting in bed and spoke on the phone with her niece for a bit. Call light within reach.
[2021-06-11] MEDS: busPIRone HCL 5 MG TABLET 10 MG PO (09:20)
[2021-06-11] MEDS: MAGNESIUM OXIDE 400 MG TABLET PO (09:21)
[2021-06-11] MEDS: allopurinoL 100 MG TABLET PO (09:21)
[2021-06-11 09:23] VITALS: PULSE 103
[2021-06-11] MEDS: ENOXAPARIN 40 MG/0.4 ML SYRINGE SUB-Q (09:23)
[2021-06-11] MEDS: carvediloL 6.25 MG TABLET PO (09:23)
--- NOTE | 2021-06-11 09:42 | PM.DS ---
DS: Admitting Diagnosis Discharge Date 06/11/2021 <SE Huggins - Last Filed: 06/11/21 11:17> Admitting Diagnosis Benzo medication overdose <SE Huggins - Last Filed: 06/11/21 11:17> DS: Summary Hospital Course Hospital Course: this is a 61-year-old female who presented to our emergency department due to overdose. Patient has a past medical history of anemia, anxiety, arthritis, depression, GERD, and hypertension. Patient is currently unresponsive all information obtained from medical records according to medical records patient called her niece at approximately 3:30 in the morning to inform her that she believes she took too much of her medication. When they arrived to her house patient was unresponsive and and nonverbal. Recommend monitoring the patient for 12 to 24-hour patient was given Narcan and flumazenil in the ED. overdose appeared to be unintentional. This day of assessment patient remains unresponsive with fixed pupils, tremors positive for myoclonus and negative Babinski sign. Today the patient is alert and orientated x4 able to follow commands without neurological deficiencies. According to patient she recently had a med medication change. Patient notes that she took tizanidine for several years and requested a med change she was given baclofen instead. Patient notes that her primary care physician pacifically informed her and want her against using the 2 together. Patient notes that she had already prepped her medication for the week and was unsure of which p.o. the tizanidine was and all of her medications. Patient notes that she assumed that she would not have a serious side effect like she did as she took it for just 1 day. Patient evaluated for suicide negative for suicide. Patient also emphasized that this was not a suicidal attempt and that she has no intentions on harming herself or anyone else. The patient denies SOB, CP, palpitation, extremity numbness, lightheadedness, dizziness, constipation, diarrhea, chills, or fever. Inpatient Stable Time spent 60 minutes <SE Huggins - Last Filed: 06/11/21 11:17> Time Spent with Patient Time attestation: Total time spent providing and/or coordinating discharge services: <SE Huggins - Last Filed: 06/11/21 11:17> Exam Narrative: GENERAL: This is a well-nourished, well-developed patient, in no apparent distress. HEAD: normocephalic, atraumatic. EYES: PERRL. Sclera clear/white. Vision is grossly intact. EARS: External ears normal, auditory canals clear and without drainage, TMs normal without perforation. Hearing grossly intact. NOSE: External nose normal with no obvious nasal discharge, nares without redness, no rhinorrhea. THROAT: Mucous membranes moist, posterior pharynx clear. NECK: Neck supple, non-tender without lymphadenopathy, masses or thyromegaly. CARDIOVASCULAR: Regular rate and rhythm without murmurs, gallops, or rubs. RESPIRATORY: Clear to auscultation. Breath sounds equal bilaterally. No wheezes, rales, or rhonchi. GASTROINTESTINAL: Abdomen soft, non-tender, nondistended. Bowel sounds are active. No hepato-splenomegaly, or palpable masses. No guarding. SKIN: warm, intact with no suspicious lesions or rash, good texture and turgor. NEURO: awake, alert, and oriented to person, place and time. There were no obvious focal neurologic abnormalities. Steady gait EXTREMITIES: Normal range of motion. No edema. No calf tenderness. Negative Homans sign bilaterally. BACK: Nontender without deformity or crepitance. No flank tenderness. <ALLYSON Huggins-C - Last Filed: 06/11/21 11:17> DS: Data Data Completed and Pending Labs on day of discharge: Labs from last 24 hours 06/11/21 06/11/21 06/10/21 05:02 05:02 09:49 WBC 5.0 RBC 4.33 Hgb 13.8 Hct 45.7 MCV 105.5 H MCH 31.9 H MCHC 30.2 L RDW 13.6 Plt Count 213 MPV 9.4 Sodium 144 Potassium 3.8 Chlor
--- NOTE | 2021-06-11 10:07 | PC.NURSE ---
Patient's camp removed. Patient tolerated well and output for catheter was 675 ml.
--- NOTE | 2021-06-11 10:33 | PC.NURSE ---
Patient ambulated to the restroom; tolerated well with no assistance. Flatulence is present.
--- NOTE | 2021-06-11 11:36 | PC.NURSE ---
Discharge instructions reviewed with patient and patient verbalized understanding. Follow up with primary care physician date and time discussed with patient. Family notified of patient's status of being ready to go home and niece stated she was on her way to strip picker the patient.
[2021-06-11 11:55] VITALS: O2SAT 96
--- NOTE | 2021-06-13 10:41 | PC.NURSE ---
Unable to contact.
== END 2021-06-11 11:55 | disposition home or self-care (01) | DRG 918 ==
LOC: CHSED 05:44 → CHS2ND 06-11 07:56
PROVIDERS: Nurse Practitioner; Admitting Provider Emergency Medicine; Emergency Provider Emergency Medicine; PCP Family Medicine; Visit Provider Emergency Medicine
DX: T50.911A Poisoning by multiple unspecified drugs, medicaments and biological substances, accidental (unintentional), initial encounter (principal); I10 Essential (primary) hypertension; K21.9 Gastro-esophageal reflux disease without esophagitis; M20.12 Hallux valgus (acquired), left foot; M19.90 Unspecified osteoarthritis, unspecified site; F41.9 Anxiety disorder, unspecified; Z20.822 Contact with and (suspected) exposure to COVID-19; F32.A Depression, unspecified; Z98.84 Bariatric surgery status; Z90.49 Acquired absence of other specified parts of digestive tract
CPT/HCPCS: 36415; 36600; 70450; 80053; 80307; 82550; 82805; 83605; 83735; 84443; 85025; 85027; 85610; 85730; 93005; 96361; 96374; 96375; 99285; A9270; C9803; J1650; J2060; J2405; J7030; U0003; U0005

== ENCOUNTER 2021-08-04 00:47 | Emergency (ER) | payer MEDICARE, MEDICAID, SELFPAY ==
--- NOTE | ~2021-08-04 | CT_ITS ---
EXAMINATION: CT chest abdomen pelvis w con DATE: 08/04/2021 02:34 INDICATION: Shortness of breath. Fever and chills. TECHNIQUE: Computed tomography (CT) of the chest, abdomen, and pelvis was performed with 100 mL Omnip aque 350 intravenous contrast. Automated exposure control and iterative reconstruction technique were employed. The dose-length product was 1877.27 mGy-cm. COMPARISON: None FINDINGS: CHEST CT: The lungs demonstrate mild atelectasis. There is a small left pleural effusion. The heart size is nor mal. No pericardial effusion. There are bilateral breast implants. There is severe thoracic spondylos is. ABDOMEN/PELVIS CT: The liver and spleen are normal. The gallbladder is absent. The pancreas and adrenal glands are amandeep l. There is cortical thinning of the kidneys. There are no dilated loops of bowel. There are changes of appendectomy. There are changes of gastric bypass procedure. There is wall thickening of the proxi mal stomach. There is mild mesenteric and retroperitoneal lymphadenopathy. There is no free intraperi toneal fluid. There are bilateral hip arthroplasties. There are changes of posterior fusion procedure at anterior fusion procedure at L4-L5. There is severe lumbar spondylosis. IMPRESSION: 1. Small left pleural effusion. 2. Mild mesenteric and retroperitoneal lymphadenopathy, likely reactive. 3. Surgical changes of recent gastric bypass procedure. Wall thickening of the proximal stomach, cons istent with inflammation versus edema. Reviewed, dictated and finalized at location [facility]. S DONOR RECRUITMENT REPRESENTATIVE IMPRESSION: 1. Small left pleural effusion. 2. Mild mesenteric and retroperitoneal lymphadenopathy, likely reactive. 3. Surgical changes of recent gastric bypass procedure. Wall thickening of the proximal stomach, consistent with inflammation versus edema.
--- NOTE | 2021-08-04 00:53 | ED.GENADULT ---
HPI - General Adult General Chief complaint: Unspecified Stated complaint: UTI Time Seen by Provider: 08/04/21 00:53 Source: patient Mode of arrival: ambulatory History of Present Illness HPI narrative: 61-year-old female with a history of hypertension, anxiety/depression chronic pain GERD, gout, status post gastric bypass forty-three years complicated recurrent vomiting abdominal discomfort. 2013 she reversal of the gastric bypass following which her symptoms improved and she gained back of weight. She followed up with bariatric surgeon who did an EGD 2 days ago by to decrease the size of the gastric pouch. Postprocedure she developed -- Sore throat -- fever with chills -- cough and shortness of breath. She went to [facility] ER. The patient waited for 6 hours and then left AMA after getting some blood work. Dr. Benjamin, the bariatric surgeon called me regarding the labs which revealed a high white cell count, positive UA and bibasilar lung infiltrates. He recommended getting a CT of the chest abdomen and pelvis and IV antibiotics for urinary tract infection. Unable to get a copy of the labs from [facility] this time. MD complaint: fever, cough, shortness of breath past 2 days Onset (ago): day(s) ( 2 days) Relieving factors: none Exacerbating factors: none Associated symptoms: denies other symptoms Treatments prior to arrival: none Related Data Home Medications Medication Instructions Recorded Confirmed allopurinol 100 mg PO DAILY 02/10/21 08/04/21 duloxetine 60 mg PO DAILY 02/10/21 08/04/21 gabapentin 800 mg PO TID 02/10/21 08/04/21 hydroxyzine HCl 50 mg PO TID 02/10/21 08/04/21 omeprazole 20 mg PO BID 02/10/21 08/04/21 quetiapine 50 mg PO DAILY 02/10/21 08/04/21 quetiapine 100 mg PO DAILY 02/10/21 08/04/21 amitriptyline 150 mg tablet 150 mg PO QHS 02/13/21 08/04/21 calcium citrate 200 mg (950 mg) 1,200 mg PO DAILY tablet 02/13/21 08/04/21 tablet cholecalciferol (vitamin D3) 125 125 mcg PO DAILY 02/13/21 08/04/21 mcg (5,000 unit) capsule carvedilol 6.25 mg PO BID 05/17/21 08/04/21 baclofen 20 mg PO BID PRN 06/10/21 08/04/21 buspirone 10 mg PO TID 06/10/21 08/04/21 diazepam 5 mg PO DAILY PRN 06/10/21 08/04/21 hydrocodone-acetaminophen 1 tablet PO Q6-8H PRN 06/10/21 08/04/21 meloxicam 7.5 mg PO DAILY PRN 06/10/21 08/04/21 sertraline 150 mg PO DAILY 06/10/21 08/04/21 Allergies Allergy/AdvReac Type Severity Reaction Status Date / Time clindamycin Allergy Severe Itching Verified 05/17/21 15:53 hydromorphone [From Dilaudid] Allergy Severe Itching Verified 05/17/21 15:53 morphine Allergy Severe Itching Verified 05/17/21 15:53 tramadol AdvReac Severe Palpitation Verified 05/17/21 15:53 s Review of Systems Review of Systems: All systems reviewed & are unremarkable except as noted in HPI and below Constitutional: Constitutional: Reports as per HPI, Reports chills and Reports fever(s) Eyes: Eyes: Reports as per HPI and Reports no additional eye complaints ENT: Reports system reviewed and no additional complaints, except as documented Cardiovascular: Cardiovascular: Reports as per HPI and Reports no additional cardiovascular complaints Respiratory: Respiratory: Reports as per HPI and Reports no additional respiratory complaints Gastrointestinal: Gastrointestinal: Reports as per HPI and Reports no additional gastrointestinal complaints Comments: no abdominal pain /nausea / vomiting / diarrhea. Genitourinary: Genitourinary: Reports no additional female genitourinary complaints Musculoskeletal: Musculoskeletal: Reports no additional musculoskeletal complaints and Reports as per HPI Integumentary/Breasts: Skin/Breast: Reports system reviewed and no additional complaints, except as docu Neurologic: Reports system reviewed and no additional complaints, except as documented Psychiatric: Psychiatric: Reports no additional psychiatric complaints Endocrine: Endocrine: Reports no additional end
--- NOTE | 2021-08-04 00:57 | PC.NURSE ---
patient was in ER at [facility], had labs and started visit. Refused to wait left AMA. Came here after her MD called us & her, Percy unable to send copies of records.
[2021-08-04 01:02] VITALS: BP 110/65; PULSE 86; RESP 20; TEMP 37; O2SAT 96
[2021-08-04 01:36] LABS: Basophils Absolute Auto 0.07 K/mm3 (0.00-0.10); Basophils Percent Auto 0.7 % (0.0-1.0); Eosinophils Absolute Auto 0.15 K/mm3 (0.02-0.50); Eosinophils Percent Auto 1.6 % (1.0-6.0); Hematocrit 41.8 % (35.0-49.0); Hemoglobin 14.1 g/dL (12.0-15.0); Immature Granulocyte Absolute 0.04 K/mm3 (0.00-0.00); Immature Granulocyte Percent A 0.4 % (0.0-0.0); Lymphocytes Absolute Auto 2.08 K/mm3 (1.10-4.50); Lymphocytes Percent Auto 21.7 % (18.0-42.0); Mean Corpuscular HGB Conc 33.7 g/dL (32.0-36.0); Mean Corpuscular Hemoglobin 32.3 pg (27.0-31.0); Mean Corpuscular Volume 95.7 fL (78.0-102.0); Mean Platelet Volume 9.5 fl (9.2-11.8); Monocytes Absolute Auto 1.11 K/mm3 (0.10-0.90); Monocytes Percent Auto 11.6 % (2.0-11.0); Neutrophils Absolute Auto 6.2 K/mm3 (1.7-7.2); Platelet Count Result 222 K/mm3 (150-420); Red Blood Count 4.37 M/mm3 (4.20-5.40); Red Cell Distribution Width 13.2 % (11.6-14.4); White Blood Count 9.6 K/mm3 (4.8-10.8)
[2021-08-04 01:45] LABS: Add Urine Microscopic? YES; Bilirubin Urine Negative (Negative); Blood Urine Negative (Negative); Color Urine Light Yellow (Yellow); Glucose Urine UA Negative (Negative); Ketones Urine Trace (Negative); Leukocyte Esterase Ur 1+ (Negative); Nitrate Urine Positive (Negative); Protein Urine Negative (Negative); Urobilinogen Urine 0.2 mg/dL (0.2-1.0)
[2021-08-04] MEDS: LACTATED RINGERS 1,000 ML 150 ML IV CONT (01:45)
[2021-08-04 01:51] LABS: Appearance Urine Sl Cloudy (Clear); Bacteria Urine 4+ /hpf; RBC Urine 0-2 /hpf (0-2); Squamous Epithelial Cell Urine None seen /hpf (Few); WBC Urine 0-3 /hpf (0-3)
[2021-08-04 01:58] LABS: Alanine Aminotransferase 287 U/L (14-59); Albumin Level 3.4 g/dL (3.4-5.0); Alkaline Phosphatase 166 U/L (46-116); Anion Gap 12 mmol/L (8-16); Aspartate Amino Transferase 121 U/L (15-37); Bilirubin,Total 0.9 mg/dL (0.00-1.00); Blood Urea Nitrogen 16 mg/dL (7-18); Calcium 8.9 mg/dL (8.5-10.1); Carbon Dioxide 26 mmol/L (21-32); Chloride 98 mmol/L (98-108); Estimated CRCL calculation 71 ml/min; Estimated Glomerular Filt Rate 53; Glucose 94 mg/dL (70-99); NT Pro B Type Natriuretic Pept 59 pg/mL (0-125); Osmolality Calculated 283 mOsm/kg (285-295); Potassium 3.4 mmol/L (3.5-5.1); Sodium 136 mmol/L (136-145); Total Protein 7.1 g/dL (6.4-8.2)
[2021-08-04 02:03] LABS: Lipase 80 U/L (73-393)
[2021-08-04] MEDS: levoFLOXacin 500 MG/D5W 100 ML 500 MG/100 ML BAG 100 MG IVPB (02:05)
[2021-08-04 02:06] LABS: Troponin I 7.5 ng/L (0.00-60.4)
[2021-08-04 03:25] VITALS: BP 138/78; PULSE 78; RESP 18; TEMP 36.4; O2SAT 98
--- NOTE | 2021-08-06 13:38 | PC.NURSE ---
cancelled, gave augmentin at 0320
--- NOTE | 2021-08-16 18:28 | PC.NURSE ---
IV stopped [id number]
== END 2021-08-04 03:29 | disposition home or self-care (01) ==
PROVIDERS: Emergency Provider Internal Medicine Critical Care Medicine; PCP Family Medicine
DX: I88.0 Nonspecific mesenteric lymphadenitis (principal); J69.0 Pneumonitis due to inhalation of food and vomit; N30.00 Acute cystitis without hematuria; R06.02 Shortness of breath; K21.9 Gastro-esophageal reflux disease without esophagitis; I10 Essential (primary) hypertension
CPT/HCPCS: 36415; 71260; 74177; 80053; 81001; 83690; 83880; 84484; 85025; 87040; 96361; 96365; 99283; 99284; A9270; J1956; J7120; Q9967

== ENCOUNTER 2021-09-17 08:29 | Outpatient (CLI) | payer MEDICARE, MEDICAID, SELFPAY ==
--- NOTE | ~2021-09-17 | XR_ITS ---
XR foot LT min 3V DATE: 09/17/2021 09:05 INDICATION: Dorsal pain and swelling, erythema. Fracture of the third and fourth metatarsal bones for months ago TECHNIQUE: 3 weightbearing views COMPARISON: 04/02/2021 left foot FINDINGS: There is hallux valgus and bunion deformity. Advanced healing of fractures at the necks of the third and fourth metatarsal bones. No interval frac ture or dislocation, periosteal reaction or bone destruction. IMPRESSION: Hallux valgus and bunion deformity Vascularity of third and fourth metatarsal fractures Reviewed, dictated and finalized at location A. GRASS MANAGEMENT PROFESSOR
== END 2021-09-17 08:30 | disposition home or self-care (01) ==
LOC: CHSIMG 08:32
PROVIDERS: PCP Family Medicine; Visit Provider Orthopaedic Surgery
DX: M79.672 Pain in left foot (principal)
CPT/HCPCS: 73630

== ENCOUNTER 2021-09-21 14:49 | Outpatient (RCR) | payer MEDICARE, MEDICAID, SELFPAY ==
--- NOTE | 2021-09-21 16:14 | PTOPEVAL ---
Thank you for referring Monica Rolon to [facility].? The patient is scheduled to be seen for therapy? ____x/week for ___ weeks. Please review, sign, date and return this plan of care TORITO. I agree with and certify that the following plan of care is medically necessary. Referring Physician Date Admitting Provider: Attending Provider: Dwight Sharma MD Referring Provider: *PT Outpatient Evaluation Start: 09/21/21 15:07 Freq: Status: Active Protocol: Document 09/21/21 15:09 [facility] (Rec: 09/21/21 16:12 [facility] [id number]) Therapy Assessment Status Assessment Status Assessment Status Evaluation Outpatient Past Medical History Neurological History Hx Neurological Disorders No Significant History Cardiovascular History Hx Hypertension Yes Respiratory History Hx Respiratory Disorders No Significant History Gastrointestinal History Hx Cholecystectomy Yes Hx Gastric Bypass Surgery Yes Hx Gastroesophageal Reflux Disease Yes Genitourinary History Hx Genitourinary Disorders No Significant History Musculoskeletal History Hx Joint Replacement Yes: hips Hx Spinal Surgery Yes: [id number] fusion Hematological History Hx Anemia Yes Endocrine History Hx Endocrine Disorders No Significant History HEENT History Hx HEENT Disorders No Significant History Integumentary History Hx Other Skin Disorders Yes: Dermatelamania Reproductive History Hx Post Menopausal Yes Psychosocial History Hx Anxiety Yes Hx Depression Yes Pain History Has Past Pain Affected Your Daily Life Yes: back and hips. History of Long-Term Prescription Pain Yes Medication Use (Opiates) Effective Methods of Pain Control Hydrocodone and tylenol Anesthesia History Hx Anesthesia Reactions No Significant History Evaluation Information Problem Diagnosis L foot pain, fractures, contracture, pre-op Onset 09/17/21 Additional Evaluation Detail LEFS = 76% functionally declined Subjective Information patient reports she has been Query Text:As Reported By Patient/ having pain in the L foot for Family about 2 months. she reports she fractured the L foot about 2 months ago falling off a ladder. she reports the hpain has continued since this fracture, and reports she need bunion surgery. she reports she is coming to therapy for prehab prior to surgery to
--- NOTE | 2022-04-29 16:43 | PCPTNOTE ---
Mrs. Rolon attended a total of 6 treatment sessions from 09/21/21 to 10/16/21. She has failed to return to the clinic and will be discharged from our care at this time. Refer to last daily note for pt. discharge status.
== END 2021-10-16 23:59 | disposition home or self-care (01) ==
LOC: CHSPT 14:49
PROVIDERS: Visit Provider Orthopaedic Surgery
DX: S92.332D Displaced fracture of third metatarsal bone, left foot, subsequent encounter for fracture with routine healing (principal); M20.12 Hallux valgus (acquired), left foot
CPT/HCPCS: 97110; 97140; 97161; 97530

== ENCOUNTER 2021-10-23 12:58 | Emergency (ER) | payer MEDICARE, MEDICAID, SELFPAY ==
--- NOTE | ~2021-10-23 | XR_ITS ---
EXAMINATION: XR chest 1V portable EXAM DATE: 10/23/2021 13:31 INDICATION: Cough,XDays,SOB TECHNIQUE: Portable AP frontal chest x-ray was obtained. Comparison is made to prior examination from 10/02/2017. FINDINGS: Possible small amount of ill-defined basilar airspace disease. There are no pleural effusio ns. The cardiomediastinal silhouette is within normal limits. There is no pneumothorax suspected. The bones and soft tissues are unremarkable. IMPRESSION: Possible small amount of ill-defined basilar airspace disease. Possible viral pneumonia. Reviewed, dictated and finalized at location A. [employer] IMPRESSION: Possible small amount of ill-defined basilar airspace disease. Pos sible viral pneumonia.
[2021-10-23 13:10] VITALS: BP 124/88; PULSE 97; RESP 16; TEMP 36.2; O2SAT 97
--- NOTE | 2021-10-23 13:22 | ED.URI ---
HPI - URI/Sore Throat General Chief Complaint: Upper Respiratory Infection Stated Complaint: cough for a week Time Seen by Provider: 10/23/21 12:59 Source: patient and RN notes reviewed Mode of arrival: ambulatory Limitations: no limitations History of Present Illness MD elicited complaint: cough Onset (ago): week(s) (1) Consistency: intermittent Severity: moderate Pain scale (0-10): 0 Description of mucous: other (none) Able to tolerate fluids by mouth: Yes Exacerbating factors: nothing Relieving factors: cough suppressant Associated symptoms: denies other symptoms Treatments prior to arrival: cold medicine Related Data Home Medications Medication Instructions Recorded Confirmed allopurinol 100 mg PO DAILY 02/10/21 10/23/21 omeprazole 20 mg PO BID 02/10/21 10/23/21 quetiapine 50 mg PO DAILY 02/10/21 10/23/21 quetiapine 100 mg PO DAILY 02/10/21 10/23/21 amitriptyline 150 mg tablet 150 mg PO QHS 02/13/21 10/23/21 calcium citrate 200 mg (950 mg) 1,200 mg PO DAILY tablet 02/13/21 10/23/21 tablet cholecalciferol (vitamin D3) 125 125 mcg PO DAILY 02/13/21 10/23/21 mcg (5,000 unit) capsule carvedilol 6.25 mg PO BID 05/17/21 10/23/21 buspirone 10 mg PO TID 06/10/21 10/23/21 Allergies Allergy/AdvReac Type Severity Reaction Status Date / Time clindamycin Allergy Severe Itching Verified 10/23/21 13:13 hydromorphone [From Dilaudid] Allergy Severe Itching Verified 10/23/21 13:13 morphine Allergy Severe Itching Verified 10/23/21 13:13 tramadol AdvReac Severe Palpitation Verified 10/23/21 13:13 s Review of Systems Review of Systems: All systems reviewed & are unremarkable except as noted in HPI and below Respiratory: Respiratory: Reports cough PMFSH Past Medical History Medical History Acquired hallux valgus of left foot Anemia Anxiety Arthritis Cough Depression Dermatillomania GERD (gastroesophageal reflux disease) History of MRSA infection Hypertension Left foot pain Metatarsal bone fracture Wears glasses Weight gain Surgical History Surgical History H/O gastric bypass H/O lumbosacral spine surgery History of breast lift History of hip surgery History of melanoma excision Hx of cholecystectomy Family History Family History Other Arthritis Depression Diabetes mellitus Esophageal cancer Heart disease High cholesterol Hypertension Neuropathy Social History Social History Smoking status: Former smoker Alcohol intake: unknown Alcohol use details: 2-3 per month Substance use: unknown Substance use type: prescription drug Gender identity (if verbalized by the patient): Female Spiritual care concerns: No Exam Const: General: no acute distress and alert Nutritional Appearance: obese Orientation/consciousness: patient oriented x3 HENMT: Head: normal to inspection Ears: external ears normal, TM's normal bilaterally and EAC's normal General nose exam: Normal external nose present and Normal nares present Face and sinus: sinuses nontender Mouth: Yes lip normal and Yes moist mucous membranes Throat: posterior oropharynx normal Eyes: Conjunctivae: conjunctivae normal Pupils: Equal, round and reactive pupils present EOM: EOMs intact bilaterally Course Course Emergency Course: Pt was stable in the ED. less cough Reevaluation(s) Reevaluation #1: VSS Date: 10/23/21 Time: 13:35 Vital Signs Vital signs: Vital Signs Temperature 36.2 C L 10/23/21 13:10 Pulse Rate 97 10/23/21 13:10 Respiratory Rate 16 10/23/21 13:10 Blood Pressure 124/88 10/23/21 13:10 Pulse Oximetry 97 10/23/21 13:10 Temperature 36.2 C L 10/23/21 13:10 Pulse Rate 97 10/23/21 13:10 Respiratory Rate 16 10/23/21 13:10 Blood Pressure 124/88 02
[2021-10-23] MEDS: guaiFENesin 12 HR 600 MG TABCR PO (13:25)
[2021-10-23] MEDS: cefTRIAXone 1 GM VIAL IM (13:51)
[2021-10-23 14:14] LABS: SARS-CoV-2 Ag Negative (Negative)
[2021-10-23 14:23] VITALS: BP 131/87; PULSE 79; RESP 16; TEMP 36.4; O2SAT 95
== END 2021-10-23 14:24 | disposition home or self-care (01) ==
PROVIDERS: Emergency Provider Emergency Medicine; PCP Family Medicine
DX: J40 Bronchitis, not specified as acute or chronic (principal); Z20.822 Contact with and (suspected) exposure to COVID-19; K21.9 Gastro-esophageal reflux disease without esophagitis; I10 Essential (primary) hypertension; Z87.891 Personal history of nicotine dependence
CPT/HCPCS: 71045; 87426; 96372; 99283; A9270; C9803; J0696

== ENCOUNTER 2021-11-29 00:46 | Day surgery (SDC) | payer MEDICARE, MEDICAID, SELFPAY ==
[2021-11-27 10:52] VITALS: BMI 40.7
--- NOTE | 2021-11-27 11:02 | PC.NURSE ---
Report to the Outpatient Waiting Room, entrance under the green pavilion located off [facility], at time 0600 on date 11/29/21. OR Time: 0730. - You and your visitor will be asked a series of questions to screen for COVID 19 for your protection. - A mask is required within the hospital. One visitor will be allowed to accompany the patient into the hospital. Patients visitor will be instructed to remain with patient at all times or leave the building. We will allow the visitor to come back to the postoperative area when patient is ready. Preoperative COVID Testing Requirements: No COVID Test needed if: (proof is required; if not received patient will have Rapid Test prior to entry) - Patient has received COVID Vaccine at least 14 days prior to procedure date or - Patient has positive COVID test result within last 90 days of surgery date. COVID Test needed if above criteria is not met Patients may have clear liquids (water, carbonated beverages, clear teas, apple juice) until 3 hours prior to surgery with a maximum of 20 ounces. - No food from midnight until time of surgery Take the following medications with a SIP of water the morning of surgery: ALLOPURINOL, BUPROPION, BUSPIRONE, CARVEDILOL, GABAPENTIN, HYDROXYZINE, QUETIAPINE Medications to discontinue per physician: VITAMINS/SUPPLEMENTS Date to take last dose: NO MORE UNTIL AFTER SURGERY Please no make-up, nail malian, hairspray, perfume, deodorant, or body powder the day of surgery. No jewelry (including any body piercings) or valuables the day of surgery, leave them at home. Please take a shower or bath the night before, or the morning of, surgery with an antibacterial soap. Wear comfortable, loose fitting clothing. Children are encouraged to wear pajamas. - Jewelry must be removed prior to entering the operating room. Rings and piercings that are not removed may be cut off. - The hospital will not accept responsibility for valuables. - Please leave all valuables, including medications, at home the day of surgery. If you are going home after surgery, a licensed wrecker driver must drive you home. - NO public transportation without another adult. - We recommend that an adult stay with you for 24 hours following discharge. - We also recommend that you do not drive, make important decision, drink alcoholic beverages, or take any drugs that were not prescribed by your health care provider for at least 24 hours after your discharge time. Follow any additional instructions given to you from your surgeon. Telephone instructions given to JUSTINE LANCE and asked if any additional questions and then verbalized understanding. Patient advised to call surgeon office or pre surgery nurse liaison [phone] if any additional questions.
[2021-11-29] VITALS (7 sets, daily range): BP systolic 116–139; BP diastolic 73–99; PULSE 88–112; RESP 12–16; TEMP 36.1; O2SAT 92–99
--- NOTE | ~2021-11-29 | XR_ITS ---
EXAMINATION: XR surgery orthopedic DATE: 11/29/2021 08:50 INDICATION: Left hallux valgus correction TECHNIQUE: 2 fluoroscopic images of the left forefoot were obtained during procedure performed by Dr. Sharma. Radiologist was not present for the imaging or procedure. The amount of fluoroscopy time us ed during this procedure was 0.2 minutes. COMPARISON: None. FINDINGS: Postoperative changes prior hallux valgus correction with Chevron realignment osteotomy at the neck o f the first metatarsal and osteotomy across the base of the first proximal phalanx with medial sided staple fixation. There has also been a bunionectomy along the medial head neck of the first metatarsa l. The alignment of the axis of the first ray appears near-anatomic. Old healed fracture at the dista l diaphysis of the second metatarsal. No acute fractures. IMPRESSION: 1. Expected appearance post left hallux valgus correction and bunionectomy. See procedure note for fu rther detail. Reviewed, dictated and finalized at location A. IMPRESSION: 1. Expected appearance post left hallux valgus correction and bunionectomy. See procedure note for further detail.
[2021-11-29] MEDS: ACETAMINOPHEN 500 MG TABLET 1000 MG PO (06:57)
--- NOTE | 2021-11-29 07:06 | WPDANESEPPF ---
Anes - Initial Pre Proc Eval Procedure: Operation Date: 11/29/21 07:30 Proposed Procedures p Left Hallux Valgus Correction - Dwight Sharma MD Date/Time: 11/29/21 07:06 Surgeon: Dwight Sharma MD Pre Op Diagnosis: Lt Hallux Valgus Patient Data Age: 61 Gender: F Height: 1.7 m Weight: 117.93 kg Allergies Allergy/AdvReac Type Severity Reaction Status Date / Time clindamycin Allergy Severe Itching Verified 11/27/21 10:49 hydromorphone [From Dilaudid] Allergy Severe Itching Verified 11/27/21 10:49 morphine Allergy Severe Itching Verified 11/27/21 10:49 tramadol AdvReac Severe Palpitation Verified 11/27/21 10:49 s Home Medications Medication Instructions Recorded Confirmed Type allopurinol 100 mg PO DAILY 02/10/21 11/29/21 History omeprazole 20 mg PO BID 02/10/21 11/29/21 History quetiapine 50 mg PO DAILY 02/10/21 11/29/21 History quetiapine 100 mg PO DAILY 02/10/21 11/29/21 History amitriptyline 150 mg tablet 150 mg PO QHS 02/13/21 11/29/21 History calcium citrate 200 mg (950 mg) 1,200 mg PO DAILY tablet 02/13/21 11/29/21 History tablet cholecalciferol (vitamin D3) 125 125 mcg PO DAILY 02/13/21 11/29/21 History mcg (5,000 unit) capsule carvedilol 6.25 mg PO BID 05/17/21 11/29/21 History buspirone 10 mg PO TID 06/10/21 11/29/21 History bupropion HCl 150 mg PO QAM 11/27/21 11/29/21 History gabapentin 800 mg PO TID 11/27/21 11/29/21 History hydroxyzine HCl 50 mg PO TID 11/27/21 11/29/21 History tizanidine 4 mg PO HS 11/27/21 11/29/21 History Patient hx anesthesia problems: none Family hx anesthesia problems: none Results Review: All pre-operative results and documents have been reviewed as part of the pre-operative evaluation. [facility] Past Medical History Medical History Anemia Anxiety Arthritis Cough Depression Dermatillomania GERD (gastroesophageal reflux disease) History of MRSA infection Hypertension Left foot pain Metatarsal bone fracture Wears glasses Weight gain Surgical History Surgical History H/O gastric bypass H/O lumbosacral spine surgery History of breast lift History of hip surgery History of melanoma excision Hx of cholecystectomy Family History Family History Other Arthritis Depression Diabetes mellitus Esophageal cancer Heart disease High cholesterol Hypertension Neuropathy Social History Social History Smoking status: Never smoker Alcohol intake: current Alcohol use details: 2/MONTH Substance use: never Substance use type: does not use Living arrangements: alone Gender identity (if verbalized by the patient): Female Spiritual care concerns: No Anes - Eval Final PreProcedure Day of Procedure 11/29/21 07:06 Patient weight: morbidly obese Heart: regular rate and rhythm Lungs: clear to auscultation Airway: Mallampati scale class II Neurological: alert and oriented Last oral intake: >/= 8 hours ASA classification: III Emergent: no Anesthetic plan: proceed Anesthesia type and monitoring: general LMA and standard monitoring Results Review: All pre-operative results and documents have been reviewed as part of the pre-operative evaluation. Informed Consent: The patient's anesthetic plan and its attendant risks and benefits were discussed with the patient/family/POA. Questions were solicited and answers provided to the satisfaction of the patient/family/POA.
--- NOTE | 2021-11-29 07:14 | WPDHPUPDATE1 ---
History and Physical Update Update Date/Time: 11/29/21 07:14 History and Physical has been reviewed, including an updated exam of the patient. There are NO changes in the patient's condition. Risks, benefits, and alternatives have been discussed and questions answered. Patient agrees to proceed with procedure.
[2021-11-29] MEDS: LACTATED RINGERS 1,000 ML 30 ML IV CONT (07:19)
[2021-11-29] MEDS: KETOROLAC 15 MG/ML VIAL (*BKC) IV PUSH (07:20)
--- NOTE | 2021-11-29 07:22 | SUR.PREOP ---
pt states uses walker at home.
[2021-11-29] MEDS: ceFAZolin 2 GM/D5W 50 ML 2 GM/50 ML BAG IVPB (07:24)
[2021-11-29] MEDS: BUPIVACAINE HCL 0.5% PF 30 ML VIAL INFILTRATE (08:04)
--- NOTE | 2021-11-29 09:09 | P.OP_ITS ---
Procedure Note - Detailed Date of Procedure 11/29/21 Pre-op Diagnosis Lt Hallux Valgus Post-op Diagnosis Same Procedure Performed Left hallux valgus correction with double osteotomy Surgeon Dwight Sharma MD Cpht 1st assistant center director Anesthesia General Indications 61-year-old woman with severe left hallux valgus deformity, pain with shoe wear and daily activity. Failed conservative treatment with toe splinting, strapping and padding with accommodative shoes. Presents for operative treatment. Description of Procedure Patient identified in the preoperative holding. Informed consent given. Operative extremity marked. Patient received intravenous antibiotics. Patient brought to the operating room where underwent general anesthetic by anesthesia team. Positioned supine on operating room table. Time-out performed confirming the patient, site of the surgery and the plan. Left foot prepped draped in the usual sterile surgical fashion using ChloraPrep skin solution. Foot and Ankle exsanguinated and calf tourniquet inflated to 225 mmHg. Longitudinal incision made over the medial eminence and the base of the hallux with a 15 blade knife. Hemostasis controlled with electrocautery. Sensory elements identified and protected. Medial capsulotomy then performed to expose the medial eminence and the metatarsophalangeal joint. Medial eminence resected in line with the medial border of the foot. Lateral release performed through the joint with a 15 blade knife under direct visualization. Chevron shaped osteotomy then completed from medial to lateral with the sagittal saw. The lateral aspect completed with an osteotome. Capital fragment was then displaced laterally and impacted back on the 1st metatarsal shaft. This was provisionally pinned and checked with image intensification. Fixation achieved with 2.0 mm absorbable pin x2. Fluoroscopy confirmed reduction. Residual valgus interphalangeus was noted. Proximal phalangeal osteotomy then performed. Dissection over the medial aspect of the base of the proximal phalanx of the hallux. Retractors placed sagittal saw used to make a medial closing wedge osteotomy. Fixation achieved with a 9 mm Nitinol staple. Image intensification confirmed reduction and hardware placement. Wounds thoroughly irrigated and the capsule repaired with 2-0 Vicryl interrupted suture. Subcutaneous tissue repaired with 3-0 Monocryl interrupted suture and skin repaired with 4-0 nylon running suture. Implants 2.0 mm treatment pending x2, 9 mm Nitinol staple-Arthrex Estimated Blood Loss 10 Tourniquet Time 50 Drains No Packing No Pathology None sent Complications None Condition Stable Disposition PACU
[2021-11-29] MEDS: ARTIFICIAL TEARS OPHTH SOLN 15 ML BOTTLE 1 DROP EACH EYE (09:11)
== END 2021-11-29 10:54 | disposition home or self-care (01) ==
PROVIDERS: PCP Family Medicine; Visit Provider Orthopaedic Surgery
PROC: (CPT 28299; principal; 2021-11-29 07:30)
DX: M20.12 Hallux valgus (acquired), left foot (principal); I10 Essential (primary) hypertension; D64.9 Anemia, unspecified; F41.8 Other specified anxiety disorders; K21.9 Gastro-esophageal reflux disease without esophagitis; Z86.14 Personal history of Methicillin resistant Staphylococcus aureus infection; Z98.84 Bariatric surgery status; E66.01 Morbid (severe) obesity due to excess calories; Z68.41 Body mass index [BMI] 40.0-44.9, adult
CPT/HCPCS: 28299; A9270; C1713; J0330; J0690; J1100; J1200; J1885; J2250; J2405; J2704; J3010; J7120

== ENCOUNTER 2022-01-21 08:06 | Outpatient (CLI) | payer MEDICARE, MEDICAID, SELFPAY ==
--- NOTE | ~2022-01-21 | XR_ITS ---
EXAMINATION: XR foot LT min 3V DATE: 01/21/2022 08:24 INDICATION: Left foot pain. TECHNIQUE: 4 views of left foot were obtained. COMPARISON: Left foot radiographs 12/19/2021 FINDINGS: There are changes of bunionectomy. There is staple fixation of first proximal phalanx. Ther e is an old healed fracture of diaphysis of second metatarsal. There is chronic mild flattening of he ad of second metatarsal, consistent with osteonecrosis (Freiberg's infraction). There is mild osteoar thritis of first and fifth metatarsophalangeal joints. There is heterotopic ossification near fifth m etatarsophalangeal joint. IMPRESSION: 1. Mild polyarticular osteoarthritis. 2. Bunionectomy. Reviewed, dictated and finalized at location A.
== END 2022-01-21 08:07 | disposition home or self-care (01) ==
LOC: CHSIMG 08:08
PROVIDERS: PCP Family Medicine; Visit Provider Orthopaedic Surgery
DX: M79.672 Pain in left foot (principal)
CPT/HCPCS: 73630

== ENCOUNTER 2022-02-14 09:44 | Emergency (ER) | payer MEDICARE, MEDICAID, SELFPAY ==
--- NOTE | ~2022-02-14 | XR_ITS ---
XR elbow RT 2V 02/14/2022 10:37 INDICATION: Right elbow pain PROCEDURE: 2 views right elbow COMPARISON: No prior studies for comparison. FINDINGS: Fracture, dislocation or subluxation is not identified. No significant joint effusion. The soft tissues appear within normal limits. No foreign bodies are identified. IMPRESSION: 1: NO ACUTE BONE OR JOINT ABNORMALITY IDENTIFIED. Reviewed, dictated and finalized at location A.
--- NOTE | ~2022-02-14 | XR_ITS ---
EXAMINATION: XR hand RT 2V DATE: 02/14/2022 10:37 INDICATION: Right hand injury and swelling. TECHNIQUE: 2 views of right hand were obtained. COMPARISON: None. FINDINGS: Bone alignment is normal. No fracture. There is mild osteoarthritis of triscaphe joint, fir st carpometacarpal joint, second metacarpophalangeal joint, and some of the interphalangeal joints. T here is a loose body at first carpometacarpal joint. IMPRESSION: 1. Mild polyarticular osteoarthritis. Reviewed, dictated and finalized at location B.
--- NOTE | ~2022-02-14 | XR_ITS ---
EXAMINATION: XR_CERV2-3V_CR DATE: 02/14/2022 10:39 INDICATION: Posterior neck pain. Fall. TECHNIQUE: 4 views of cervical spine were obtained. COMPARISON: None. FINDINGS: There is 6 degrees levocurvature of cervicothoracic spine. Vertebral body heights are amandeep l. There is moderate to severely decreased disc height from C3-C4 through C6-C7. There is severe bila teral uncovertebral joint osteoarthritis from C3-C4 through C6-C7. There is multilevel mild facet ronak nt osteoarthritis. There is mild central canal stenosis at C3-C4, C4-C5, C5-C6, and C6-C7. No prevert ebral soft tissue swelling. IMPRESSION: 1. Severe cervical spondylosis. Reviewed, dictated and finalized at location B.
--- NOTE | ~2022-02-14 | XR_ITS ---
EXAMINATION: XR shoulder RT min 2V DATE: 02/14/2022 10:38 INDICATION: Posterior right shoulder pain radiating to the elbow post fall TECHNIQUE: AP internally and externally rotated, AP oblique externally rotated and transscapular Y vi ews of the right shoulder were obtained. COMPARISON: None FINDINGS: Normal alignment. No fracture. Mild osteoarthritis at the right glenohumeral and acromioclavicular j oints. Visualized portion of the right lung are clear. Soft tissues are unremarkable. IMPRESSION: Mild right acromioclavicular and glenohumeral osteoarthritis. No acute osseous abnormality. Reviewed, dictated and finalized at location A.
[2022-02-14 10:10] VITALS: BP 125/70; PULSE 96; RESP 16; TEMP 36.3; O2SAT 95
--- NOTE | 2022-02-14 10:45 | ED.FALL ---
HPI - Fall General Chief Complaint: Fall Stated Complaint: fell pain in right arm up to her neck Source: patient Mode of arrival: ambulatory Limitations: no limitations History of Present Illness HPI Narrative: this is a 62-year-old female that presents after she had a fall yesterday causing a cut to her right upper arm is up-to-date with her tetanus has some pain and tenderness in her right hand elbow shoulder and neck area has good range of motion however is some swelling in her right hand and 4th finger with no numbness or tingling. No other injuries no neurological deficits no headache no blurry vision no nausea or vomiting. The patient rates her pain at a 7/10. MD complaint: fall Onset (ago): day(s) Fall from: standing Fall witnessed: no Place fall occurred: home Related Data Home Medications Medication Instructions Recorded Confirmed allopurinol 100 mg tablet 100 mg PO DAILY 02/10/21 01/21/22 omeprazole 20 mg capsule,delayed 20 mg PO BID 02/10/21 01/21/22 release quetiapine 100 mg tablet 100 mg PO DAILY 02/10/21 01/21/22 quetiapine 50 mg tablet 50 mg PO DAILY 02/10/21 01/21/22 amitriptyline 150 mg tablet 150 mg PO QHS 02/13/21 01/21/22 calcium citrate 200 mg (950 mg) 1,200 mg PO DAILY 02/13/21 01/21/22 tablet cholecalciferol (vitamin D3) 125 125 mcg PO DAILY 02/13/21 01/21/22 mcg (5,000 unit) capsule carvedilol 6.25 mg tablet 6.25 mg PO BID 05/17/21 01/21/22 buspirone 10 mg tablet 10 mg PO TID 06/10/21 01/21/22 bupropion HCl 150 mg 24 hr tablet, 150 mg PO QAM 11/27/21 01/21/22 extended release gabapentin 800 mg tablet 800 mg PO TID 11/27/21 01/21/22 hydroxyzine HCl 50 mg tablet 50 mg PO TID 11/27/21 01/21/22 tizanidine 4 mg tablet 4 mg PO HS 11/27/21 01/21/22 Allergies Allergy/AdvReac Type Severity Reaction Status Date / Time clindamycin Allergy Severe Itching Verified 02/14/22 10:19 hydromorphone [From Dilaudid] Allergy Severe Itching Verified 02/14/22 10:19 morphine Allergy Severe Itching Verified 02/14/22 10:19 tramadol AdvReac Severe Palpitation Verified 02/14/22 10:19 s Review of Systems Review of Systems: All systems reviewed & are unremarkable except as noted in HPI and below PMFSH Past Medical History Medical History Anemia Anxiety Arthritis Cough Depression Dermatillomania Encounter for postoperative care GERD (gastroesophageal reflux disease) History of MRSA infection Hypertension Left foot pain Metatarsal bone fracture Wears glasses Weight gain Surgical History Surgical History H/O gastric bypass H/O lumbosacral spine surgery History of breast lift History of hip surgery History of melanoma excision Hx of cholecystectomy Family History Family History Other Arthritis Depression Diabetes mellitus Esophageal cancer Heart disease High cholesterol Hypertension Neuropathy Social History Social History Alcohol intake: current Alcohol use details: 2/MONTH Substance use: never Substance use type: does not use Gender identity (if verbalized by the patient): Female Sexual Orientation (if Verbalized by the Patient): Straight or Heterosexual Spiritual care concerns: No Exam Const: General: healthy appearing, no acute distress and alert Limitations: no limitations HENMT: Head: normal to inspection Ears: external ears normal Face and sinus: normal facial exam Mouth: Yes Normal oral and palatal mucosa present Eyes: Conjunctivae: conjunctivae normal Pupils: Equal, round and reactive pupils present EOM: EOMs intact bilaterally Neck: Neck: normal visual inspection, no lymphadenopathy and no meningeal signs Chest: Chest palpation & inspection: normal inspection of the chest Resp: Effort & Inspection: normal respiratory e
[2022-02-14] MEDS: KETOROLAC (*BKC) 60 MG/2 ML VIAL IM (10:47)
[2022-02-14 11:10] VITALS: BP 109/65; PULSE 80; RESP 16; TEMP 36.8; O2SAT 94
== END 2022-02-14 11:12 | disposition home or self-care (01) ==
PROVIDERS: Emergency Provider Emergency Medicine; PCP Family Medicine
DX: T14.8XXA Other injury of unspecified body region, initial encounter (principal); M19.90 Unspecified osteoarthritis, unspecified site
CPT/HCPCS: 72040; 73030; 73070; 73120; 96372; 99284; A4565; J1885

== ENCOUNTER 2022-04-01 09:49 | Outpatient (CLI) | payer MEDICARE, MEDICAID, SELFPAY ==
[2022-04-01 10:07] LABS: Basophils Absolute Auto 0.06 K/mm3 (0.00-0.10); Basophils Percent Auto 1.2 % (0.0-1.0); Eosinophils Absolute Auto 0.27 K/mm3 (0.02-0.50); Eosinophils Percent Auto 5.5 % (1.0-6.0); Hematocrit 43.5 % (35.0-49.0); Hemoglobin 14.1 g/dL (12.0-15.0); Immature Granulocyte Absolute 0.01 K/mm3 (0.00-0.00); Immature Granulocyte Percent A 0.2 % (0.0-0.0); Lymphocytes Absolute Auto 1.87 K/mm3 (1.10-4.50); Lymphocytes Percent Auto 38.2 % (18.0-42.0); Mean Corpuscular HGB Conc 32.4 g/dL (32.0-36.0); Mean Corpuscular Volume 98.9 fL (78.0-102.0); Mean Platelet Volume 9.1 fl (9.2-11.8); Monocytes Absolute Auto 0.43 K/mm3 (0.10-0.90); Monocytes Percent Auto 8.8 % (2.0-11.0); Neutrophils Absolute Auto 2.3 K/mm3 (1.7-7.2); Neutrophils Percent Auto 46.1 % (50.0-70.0); Platelet Count Result 233 K/mm3 (150-420); Red Cell Distribution Width 13.8 % (11.6-14.4); White Blood Count 4.9 K/mm3 (4.8-10.8)
[2022-04-01 10:16] LABS: Add Urine Microscopic? YES; Appearance Urine Slightly Cloudy (Clear); Bilirubin Urine Negative (Negative); Blood Urine Negative (Negative); Color Urine Light Yellow (Yellow); Glucose Urine UA Negative (Negative); Ketones Urine Negative (Negative); Leukocyte Esterase Ur 1+ LEU/UL (Negative); Nitrate Urine Negative (Negative); Protein Urine Negative (Negative); Urobilinogen Urine 0.2 mg/dL (0.2-1.0)
[2022-04-01 10:25] LABS: Amorphous Sediment Urine Few; Bacteria Urine 1+ /hpf; RBC Urine None seen /hpf (0-2); Renal Epithelial Cells Urine Few /hpf; Squamous Epithelial Cell Urine Few /hpf (Few)
[2022-04-01 10:39] LABS: Hemoglobin A1C 4.9 % (<5.7)
[2022-04-01 11:01] LABS: Alanine Aminotransferase 87 U/L (14-59); Albumin Level 3.6 g/dL (3.4-5.0); Alkaline Phosphatase 122 U/L (46-116); Anion Gap 7 mmol/L (8-16); Aspartate Amino Transferase 40 U/L (15-37); Bilirubin,Total 0.5 mg/dL (0.00-1.00); Blood Urea Nitrogen 15 mg/dL (7-18); Carbon Dioxide 28 mmol/L (21-32); Chloride 108 mmol/L (98-108); Cholesterol 188 mg/dL (0-200); Estimated Glomerular Filt Rate > 60; Glucose 95 mg/dL (70-99); HDL Direct 71 mg/dL (40-60); LDL Cholesterol Calculated 99 mg/dL (<130); Osmolality Calculated 296 mOsm/kg (285-295); Potassium 4.3 mmol/L (3.5-5.1); Sodium 143 mmol/L (136-145); Total Protein 6.6 g/dL (6.4-8.2); Triglycerides 91 mg/dL (0-150); Uric Acid 5.2 mg/dL (2.6-6.0); Vitamin B12 562 pg/mL (193-986)
[2022-04-01 11:02] LABS: Folic Acid > 20.0 ng/mL (8.6->20)
[2022-04-01 11:03] LABS: Free T4 Free Thyroxine Reflex 0.74 ng/dL (0.76-1.46); Thyroid Stimulating Hormone Reflex 3.83 u/IU/mL (0.36-3.74)
[2022-04-04 21:04] LABS: Vitamin D 25 Hydroxy 45 ng/mL (30-100)
== END 2022-04-01 09:50 | disposition home or self-care (01) ==
LOC: CHSLAB 09:53
PROVIDERS: PCP Family Medicine; Visit Provider Family Medicine
DX: G89.4 Chronic pain syndrome (principal); M10.09 Idiopathic gout, multiple sites; N18.30 Chronic kidney disease, stage 3 unspecified; Z87.448 Personal history of other diseases of urinary system; D64.9 Anemia, unspecified; R53.83 Other fatigue; E66.9 Obesity, unspecified; Z79.899 Other long term (current) drug therapy
CPT/HCPCS: 36415; 80053; 80061; 81001; 82306; 82607; 82746; 83036; 84439; 84443; 84550; 85025; 87086; 87088

== ENCOUNTER 2022-09-09 12:59 | Outpatient (RCR) | payer MEDICARE, MEDICAID, SELFPAY ==
--- NOTE | 2022-09-09 14:02 | PTOPEVAL1 ---
Assessment and note entered by Jay Vasquez Evaluation Information Assessment Status Evaluation Diagnosis left foot pain, hallux valgus Onset 12/08/21 Subjective Information Pt. reports that she has developed increasing foot pain about 9 months ago after bunion surgery. She reports that pain is mostly located in the bottom of the front of the foot. She reports that pain is most notable in walking and getting out of bed first thing in the morning. She does not have any pain around the heel. She states that pain has been getting worse. She reports that pain limits her ability to stand and she can stand for 10 minutes at the most. She reports that her goal is to decrease her foot pain with walking. Reported Pain Level Pain Score 4: Self Report Assessment PT Clinical Summary Pt. is a 62 year old female who enters the clinic with left foot pain. She presents with impaired gait, impaired strength, impaired mobility and pain. Continued treatment is indicated in order to improve these areas to allow the pt. to be able to pariticpate in standing activities with less pain. Plan of Care Interventions Electrical Stimulation,Gait Training,Hot Pack/Cold Pack,Manual Therapy,Neuro Re-education, Therapeutic Activities,Therapeutic Exercise, Ultrasound PT Services Indicated Yes Treatment Frequency and 2x/week x 10 visits Duration These treatments will address the objective and functional deficits as defined above. The patient will be advanced safely and appropriately in order for the patient to progress towards his/her prior level of function. Additional exercises will be introduced and as well as a comprehensive home exercise program upon discharge, if needed, ?to ensure carryover of functional gains achieved in the clinic. This treatment plan has been reviewed and agreement upon by the patient.
== END 2022-09-17 15:47 | disposition home or self-care (01) ==
LOC: CHSPT 12:59
PROVIDERS: Visit Provider Orthopaedic Surgery
DX: M79.672 Pain in left foot (principal); M20.12 Hallux valgus (acquired), left foot
CPT/HCPCS: 97014; 97035; 97110; 97161; G0283

== ENCOUNTER 2022-10-01 14:03 | Outpatient (CLI) | payer MEDICARE, MEDICAID, SELFPAY ==
[2022-10-01 15:18] LABS: Thyroid Stimulating Hormone Reflex 4.08 u/IU/mL (0.36-3.74)
[2022-10-01 15:46] LABS: Free T4 Free Thyroxine Reflex 0.75 ng/dL (0.76-1.46)
== END 2022-10-01 14:04 | disposition home or self-care (01) ==
LOC: CHSLAB 14:06
PROVIDERS: PCP Family Medicine; Visit Provider Family Medicine
DX: E03.9 Hypothyroidism, unspecified (principal)
CPT/HCPCS: 36415; 84439; 84443

== ENCOUNTER 2023-02-11 17:02 | Emergency (ER) | payer MEDICARE, MEDICAID, SELFPAY ==
--- NOTE | ~2023-02-11 | XR_ITS ---
EXAM: XR ankle LT min 3V, XR foot LT min 3V DATE: 02/11/2023 17:27 HISTORY: LATERAL PAIN AFTER FALL/PT WOULD NOT FOLLOW DIRECTIONS . COMPARISON: None available. FINDINGS: Decreased mineralization. Nondisplaced oblique fracture of the distal left fibula above th e level of the joint line ([place] C type fracture). Mild hallux valgus with bunionectomy changes. Fixa tion hardware in the first phalanx. Os navicularis. No lytic or blastic lesion. Joint spaces are main tained. No erosion or periosteal change. Soft tissues within normal limits. IMPRESSION: Nondisplaced oblique fracture of the distal left fibula. Reviewed, dictated and finalized at location K. IMPRESSION: Nondisplaced oblique fracture of the distal left fibula.
[2023-02-11 17:02] VITALS: BP 132/90; PULSE 79; RESP 18; TEMP 37.2; O2SAT 98
--- NOTE | 2023-02-11 17:09 | ED.LOWEXIN ---
HPI - Extremity Injury (Lower) General Chief Complaint: Extremity Injury, Lower Stated Complaint: L foot injury Time Seen by Provider: 02/11/23 17:06 Source: patient, EMS and RN notes reviewed Mode of arrival: EMS Limitations: no limitations History of Present Illness MD complaint: ankle injury Onset (ago): minute(s) (20) Injury: Left: ankle and foot Type of Injury: inversion Place: home Severity: severe Relieving factors: other ( fentanyl) Exacerbating factors: movement and palpation Context: fall and walking Associated symptoms: snap/pop sensation, swelling and unable to bear weight Other symptoms: none Treatments prior to arrival: cold therapy Related Data Home Medications Medication Instructions Recorded Confirmed allopurinol 100 mg tablet 100 mg PO DAILY 02/10/21 02/11/23 omeprazole 20 mg capsule,delayed 20 mg PO BID 02/10/21 02/11/23 release quetiapine 100 mg tablet 100 mg PO DAILY 02/10/21 09/24/22 quetiapine 50 mg tablet 50 mg PO DAILY 02/10/21 09/24/22 amitriptyline 150 mg tablet 150 mg PO QHS 02/13/21 09/24/22 calcium citrate 200 mg (950 mg) 1,200 mg PO DAILY 02/13/21 09/24/22 tablet cholecalciferol (vitamin D3) 125 125 mcg PO DAILY 02/13/21 09/24/22 mcg (5,000 unit) capsule carvedilol 6.25 mg tablet 6.25 mg PO BID 05/17/21 02/11/23 buspirone 10 mg tablet 10 mg PO TID 06/10/21 09/24/22 bupropion HCl 150 mg 24 hr tablet, 150 mg PO QAM 11/27/21 02/11/23 extended release gabapentin 800 mg tablet 800 mg PO TID 11/27/21 02/11/23 hydroxyzine HCl 50 mg tablet 50 mg PO TID 11/27/21 09/24/22 tizanidine 4 mg tablet 4 mg PO HS 11/27/21 09/24/22 atomoxetine 60 mg capsule 60 mg PO 11/18/22 Allergies Allergy/AdvReac Type Severity Reaction Status Date / Time clindamycin Allergy Severe Itching Verified 02/11/23 17:17 hydromorphone [From Dilaudid] Allergy Severe Itching Verified 02/11/23 17:17 morphine Allergy Severe Itching Verified 11/18/22 14:04 tramadol AdvReac Severe Palpitation Verified 02/11/23 17:17 s Review of Systems Review of Systems: All systems reviewed & are unremarkable except as noted in HPI and below PMFSH Past Medical History Medical History Anemia Anxiety Arthritis Cough Depression Dermatillomania Encounter for postoperative care GERD (gastroesophageal reflux disease) History of MRSA infection Hypertension Left foot pain Metatarsal bone fracture Metatarsalgia, left foot Patellofemoral arthralgia of both knees Peripheral neuropathy Wears glasses Weight gain Surgical History Surgical History H/O gastric bypass H/O lumbosacral spine surgery History of breast lift History of bunionectomy History of hip surgery History of melanoma excision Hx of cholecystectomy Family History Family History Other Arthritis Depression Diabetes mellitus Esophageal cancer Heart disease High cholesterol Hypertension Neuropathy Social History Social History Smoking status: Unknown if ever smoked Alcohol intake: current Alcohol use details: 2/MONTH Substance use: never Substance use type: does not use Living arrangements: alone Gender identity (if verbalized by the patient): Female Sexual Orientation (if Verbalized by the Patient): Straight or Heterosexual Spiritual care concerns: No Exam Const: General: healthy appearing, no acute distress and alert Nutritional Appearance: well nourished and obese Orientation/consciousness: patient oriented x3 Limitations: no limitations HENMT: Head: normal to inspection Ears: external ears normal Face/Nose/Sinus: Normal external nose present Face and sinus: normal facial exam Mouth: Yes moist mucous membranes Eyes: Conjunctivae: conjunctivae normal Pupils: Equal, round and reactive pupils present EOM: E
== END 2023-02-11 17:56 | disposition home or self-care (01) ==
PROVIDERS: Emergency Provider Emergency Medicine; PCP Family Medicine
DX: S82.832A Other fracture of upper and lower end of left fibula, initial encounter for closed fracture (principal); I10 Essential (primary) hypertension; X50.0XXA Overexertion from strenuous movement or load, initial encounter; Y92.009 Unspecified place in unspecified non-institutional (private) residence as the place of occurrence of the external cause
CPT/HCPCS: 73610; 73630; 99284; L2112

== ENCOUNTER 2023-03-17 09:56 | Outpatient (CLI) | payer MEDICARE, MEDICAID, SELFPAY ==
--- NOTE | ~2023-03-17 | XR_ITS ---
XR ankle LT min 3V DATE: 03/17/2023 10:20 INDICATION: Fracture follow-up TECHNIQUE: 4 views COMPARISON: 02/11/2023 left ankle FINDINGS: There is periosteal reaction consistent with healing at the virtually nondisplaced fracture of the distal fibular shaft. The medial malleolus and the posterior malleolus are intact. Ankle mortise is preserved. No other fra cture or dislocation. IMPRESSION: Healing virtually nondisplaced distal fibular shaft fracture Reviewed, dictated and finalized at location B.
== END 2023-03-17 09:57 | disposition home or self-care (01) ==
LOC: CHSIMG 09:59
PROVIDERS: PCP Family Medicine; Visit Provider Orthopaedic Surgery
DX: S82.832D Other fracture of upper and lower end of left fibula, subsequent encounter for closed fracture with routine healing (principal)
CPT/HCPCS: 73610

== ENCOUNTER 2023-03-24 11:03 | Outpatient (RCR) | payer MEDICARE, MEDICAID, SELFPAY ==
--- NOTE | 2023-03-24 13:16 | OPREHPOC ---
Outpatient Therapy Plan of Care This is a Multidisciplinary Plan of Care that may contain components documented by all disciplines (PT, OT, and ST.) PT Problem 1 PT Problem #1 Knowledge Deficit PT Goal 1 Goal Patient to demonstrate independence with HEP Target Visit 6 PT Problem 2 PT Problem #2 Pain PT Goal 1 Goal 1. Patient to report highest pain at 2/10 2. Patient to report no sleep disturbance due to L LE pain Target Visit 12 PT Problem 3 PT Problem #3 Impaired Range of Motion PT Goal 1 Goal Patient to demonstrate 0-120 deg L knee ROM to improve stair navigation Target Visit 12 PT Problem 4 PT Problem #4 Impaired Strength PT Goal 1 Goal Patient to demonstrate 5/5 strength of L LE in order to return to house hold tasks at PLOF Target Visit 12 PT Problem 5 PT Problem #5 Impaired Functional Mobil PT Goal 1 Goal 1. Patient to demonstrate 20% improvement in LEFS scoring 2. Patient to report ability to walk >30 min with no reports of pain
--- NOTE | 2023-03-24 13:16 | PTOPEVAL1 ---
Assessment and note entered by Eveline Ayala DPT Evaluation Information Diagnosis L LE pain, L achilles pain, L knee pain Onset 02/11/23 Subjective Information Patient reports on February 11 she was entering her house with flip flops on and teipped and broke her distal fibula. She reports she has been in a boot since then but reports lately she has been walking without it in the house. She reports MD stated her fracture is healing well but now she is having L achilles and posterior knee pain. She reports knee pain started after trying to stretch after achilles pain started. She reports difficulty with house hold tasks, walking on uneven surfaces and step navigation. She reports she does have a history of achilles pain. Reported Pain Level Pain Score 0,0: Self Report Assessment PT Clinical Summary Patient is a 63 year old female who presents to PT with L knee pain with history of L fibula fracture and achilles tendonitits. Patient demonstrates decreased L knee ROM, tenderness to the L hamstring and gastroc and L LE weakness impairing her ability to ambulate prolonged distances, complete house hold tasks and navgiate steps into her house. She would benefit from skilled PT to address impairments and return to PLOF. Plan of Care Interventions Electrical Stimulation,Gait Training,Hot Pack/Cold Pack,Manual Therapy,Neuro Re-education,Patient/ Caregiver Educati,Therapeutic Activities, Therapeutic Exercise PT Services Indicated Yes Treatment Frequency and 2x weekly for 12 visits Duration These treatments will address the objective and functional deficits as defined above. The patient will be advanced safely and appropriately in order for the patient to progress towards his/her prior level of function. Additional exercises will be introduced and as well as a comprehensive home exercise program upon discharge, if needed, ?to ensure carryover of functional gains achieved in the clinic. This treatment plan has been reviewed and agreement upon by the patient.
== END 2023-04-09 23:59 | disposition home or self-care (01) ==
LOC: CHSPT 11:03
PROVIDERS: Visit Provider Orthopaedic Surgery
DX: M79.672 Pain in left foot (principal); M76.62 Achilles tendinitis, left leg; M22.2X1 Patellofemoral disorders, right knee; M22.2X2 Patellofemoral disorders, left knee; S82.832D Other fracture of upper and lower end of left fibula, subsequent encounter for closed fracture with routine healing
CPT/HCPCS: 97110; 97140

== ENCOUNTER 2023-04-09 08:21 | Outpatient (CLI) | payer MEDICARE, MEDICAID, SELFPAY ==
--- NOTE | ~2023-04-09 | US_ITS ---
Limited Abdominal Sonogram: Real-time sonographic imaging of the right upper quadrant was performed. Clinical History: Abnormal liver enzymes Findings: The liver appears mildly echogenic, with no evidence of mass lesion or bile duct dilatatio n. Main portal vein demonstrates normal direction of flow. The gallbladder is absent, compatible prio r cholecystectomy. The common bile duct measures 10 mm. The visualized pancreas, aorta, and IVC are unremarkable. Impression: Dilated common bile duct may be related to prior cholecystectomy. Probable diffuse fatty infiltration of liver. Reviewed, dictated and finalized at location M. Impression: Dilated common bile duct may be related to prior cholecystectomy. Probable diffuse fatty infiltration of liver.
[2023-04-09 08:56] LABS: Basophils Absolute Auto 0.06 K/mm3 (0.00-0.10); Basophils Percent Auto 1.2 % (0.0-1.0); Eosinophils Absolute Auto 0.37 K/mm3 (0.02-0.50); Eosinophils Percent Auto 7.4 % (1.0-6.0); Hematocrit 49.6 % (35.0-49.0); Hemoglobin 16.3 g/dL (12.0-15.0); Immature Granulocyte Absolute 0.02 K/mm3 (0.00-0.00); Immature Granulocyte Percent A 0.4 % (0.0-0.0); Lymphocytes Absolute Auto 2.07 K/mm3 (1.10-4.50); Lymphocytes Percent Auto 41.2 % (18.0-42.0); Mean Corpuscular HGB Conc 32.9 g/dL (32.0-36.0); Mean Corpuscular Hemoglobin 32.5 pg (27.0-31.0); Mean Corpuscular Volume 98.8 fL (78.0-102.0); Mean Platelet Volume 9.1 fl (9.2-11.8); Monocytes Absolute Auto 0.42 K/mm3 (0.10-0.90); Monocytes Percent Auto 8.4 % (2.0-11.0); Neutrophils Absolute Auto 2.1 K/mm3 (1.7-7.2); Neutrophils Percent Auto 41.4 % (50.0-70.0); Platelet Count Result 247 K/mm3 (150-420); Red Blood Count 5.02 M/mm3 (4.20-5.40); Red Cell Distribution Width 13.8 % (11.6-14.4)
[2023-04-09 09:12] LABS: Hemoglobin A1C 4.7 % (<5.7)
[2023-04-09 09:39] LABS: Rheumatoid Factor Screen Negative (Negative)
[2023-04-09 10:04] LABS: Alanine Aminotransferase 45 U/L (14-59); Albumin Level 3.9 g/dL (3.4-5.0); Alkaline Phosphatase 138 U/L (46-116); Anion Gap 9 mmol/L (8-16); Aspartate Amino Transferase 27 U/L (15-37); Bilirubin,Total 0.4 mg/dL (0.00-1.00); Blood Urea Nitrogen 15 mg/dL (7-18); Calcium 9.4 mg/dL (8.5-10.1); Carbon Dioxide 29 mmol/L (21-32); Chloride 102 mmol/L (98-108); Cholesterol 164 mg/dL (0-200); Estimated Glomerular Filt Rate 47; Free T3 1.85 pg/mL (2.18-3.98); Glucose 97 mg/dL (70-99); HDL Direct 65 mg/dL (40-60); Iron 97 ug/dL (50-170); LDL Cholesterol Calculated 86 mg/dL (<130); Magnesium 1.8 mg/dL (1.8-2.4); Osmolality Calculated 290 mOsm/kg (285-295); Percent Iron Saturation 32 % (12-57); Potassium 4.9 mmol/L (3.5-5.1); Sodium 140 mmol/L (136-145); Thyroid Stimulating Hormone 2.92 uIU/mL (0.36-3.74); Total Protein 6.9 g/dL (6.4-8.2); Triglycerides 67 mg/dL (0-150); Uric Acid 4.4 mg/dL (2.6-6.0); Vitamin B12 980 pg/mL (193-986)
[2023-04-09 10:05] LABS: Folic Acid > 20.0 ng/mL (8.6->20)
[2023-04-09 11:12] LABS: Appearance Urine Clear (Clear); Bilirubin Urine Negative (Negative); Blood Urine Negative (Negative); Color Urine Yellow (Yellow); Glucose Urine UA Negative (Negative); Ketones Urine Trace (Negative); Leukocyte Esterase Ur Trace LEU/UL (Negative); Nitrate Urine Positive (Negative); Protein Urine Negative (Negative); Urobilinogen Urine 0.2 mg/dL (0.2-1.0)
[2023-04-09 11:21] LABS: Add Urine Microscopic? YES; RBC Urine None seen /hpf (0-2); Squamous Epithelial Cell Urine Rare /hpf (Few); WBC Urine 0-3 /hpf (0-3)
[2023-04-09 11:22] LABS: Bacteria Urine 3+ /hpf
[2023-04-12 05:06] LABS: Thyroid Peroxidase Antibodies 2 IU/mL (<9)
[2023-04-13 12:44] LABS: Mitochondrial (M2) Ab (IgG) <=20.0 U (<=20.0)
[2023-04-13 19:30] LABS: Hepatitis A Antibody IgM Nonreactive; Hepatitis B Core Antibody Nonreactive (Nonreactive); Hepatitis B Surface Antigen Nonreactive (Nonreactive); Hepatitis C Virus Antibody Nonreactive
[2023-04-13 22:44] LABS: Vitamin D 25 Hydroxy 84 ng/mL (30-100)
[2023-04-14 21:31] LABS: LKM 1 Antibody <=20.0 U (<=20.0)
[2023-04-14 22:07] LABS: Anti Cyclic Citrullinated Pept <16 Units (<20)
== END 2023-04-09 08:22 | disposition home or self-care (01) ==
LOC: CHSIMG 08:23
PROVIDERS: PCP Family Medicine; Visit Provider Internal Medicine Endocrinology, Diabetes & Metabolism
DX: R74.8 Abnormal levels of other serum enzymes (principal); E03.9 Hypothyroidism, unspecified; R53.83 Other fatigue; Z79.899 Other long term (current) drug therapy; R73.9 Hyperglycemia, unspecified; K92.89 Other specified diseases of the digestive system
CPT/HCPCS: 36415; 76705; 80053; 80061; 80074; 81001; 82306; 82607; 82746; 83036; 83520; 83540; 83550; 83735; 84439; 84443; 84481; 84550; 85025; 86038; 86200; 86376; 86430; 87077; 87086; 87088; 87186

== ENCOUNTER 2023-09-30 11:46 | Outpatient (CLI) | payer MEDICARE, MEDICAID, SELFPAY ==
--- NOTE | ~2023-09-30 | DEXA_ITS ---
Bone Density Report Name: JUSTINE LANCE Age: 63 Sex: Female Ethnicity: White Date of : 1960 Indication: postmenopausal; screening for osteoporosis; height loss; prior fracture; cancer; Referring Provider: CK, [facility] Study: Bone densitometry was performed. Exam Date: September 30, 2023 Accession number: [id number] Bone Density: Region BMD T-score Z-score Classification AP Spine(L1, L2, L3) 1.239 2.0 3.6 Normal World Health Organization criteria for BMD impression classify patients as: Normal (T-score at or above -1.0), Osteopenia (T-score between -1.0 and -2.5), or Osteoporosis (T-score at or below -2.5). Clinical Information Provided by Patient: Have had a previous hip or vertebral fracture Has had a low trauma fracture Has used the following medications: Vitamin D, Calcium Has the following medical conditions: Cancer Patient maximum height was 68 Menopause Age: 56 No regular weight bearing exercise Drinks caffeinated beverages Onset of menses at age 14 Number of children 1 Impression: The patient has normal bone mass. The patient has risk factors, including: previous fracture. Discussion: INCREASED RISK OF FRACTURE DUE TO HISTORY OF FRACTURE. The patient's previous fracture puts the patient at high risk of a future fracture. In untreated patients, the risk of osteoporotic fracture increases approximately two-fold for each 1.0 SD decrease in T-score. Low bone density is not the only risk factor for fracture; also consider factors such as patient's age, frailty or poor health, risk of falling, risk of injury, previous osteoporotic fracture, family history of osteoporosis, cigarette smoking, low body weight, etc. Not everyone with a low trauma fracture has osteoporosis; osteomalacia and other metabolic bone disorders should also be considered. Patients who have osteoporosis should be evaluated for specific diseases and conditions (secondary causes) that may cause or contribute to bone loss and fracture risk. National Osteoporosis Foundation (NOF) recommends pharmacologic intervention for patients with a prior hip or vertebral fracture regardless of BMD T-score. The patient should follow a healthful lifestyle (good nutrition with adequate calcium and vitamin D, and appropriate weight-bearing exercise). Follow-Up: Consider a repeat BMD and Vertebral Fracture Assessment (VFA) exam in 2 years or sooner if medically necessary, to reassess this patient's status. Reported by: Dr. Avtar Samson on 09/30/2023 12:41:00 PM. Reviewed, dictated and finalized at location A.
--- NOTE | ~2023-09-30 | MM_ITS ---
EXAMINATION: MM scrn nay implant BI w sandhya HISTORY: Screening mammogram TECHNIQUE: Craniocaudal and mediolateral oblique 3-D tomosynthesis images with implant displacement a nd synthetic 2-D images were generated. Craniocaudal and mediolateral oblique views of the breasts wi thout implant displacement were obtained using full field digital mammography. CAD analysis was submi tted and interpreted. COMPARISON: Right mammogram dated 01/15/2021 BREAST PARENCHYMAL COMPOSITION: Breast composed of scattered areas of fibroglandular density FINDINGS: There are asymmetries in the upper outer quadrant of the left breast. The right breast is s table without evidence for malignancy. IMPRESSION: 1. Left breast asymmetries. 2. Additional mammographic views and possible breast ultrasound are recommended. BI-RADS Category 0: Incomplete: Needs additional imaging evaluation. Reviewed, dictated and finalized at location A. ABUSE PROGRAM COORDINATOR IMPRESSION: 1. Left breast asymmetries. 2. Additional mammographic views and possible breast ultrasound are recommended . BI-RADS Category 0: Incomplete: Needs additional imaging evaluation.
[2023-09-30 13:17] LABS: Thyroid Stimulating Hormone Reflex 1.85 u/IU/mL (0.36-3.74)
== END 2023-09-30 11:47 | disposition home or self-care (01) ==
PROVIDERS: PCP Family Medicine; Visit Provider Family Medicine
DX: E03.9 Hypothyroidism, unspecified (principal); Z12.31 Encounter for screening mammogram for malignant neoplasm of breast; Z78.0 Asymptomatic menopausal state; R92.8 Other abnormal and inconclusive findings on diagnostic imaging of breast
CPT/HCPCS: 36415; 77063; 77067; 77080; 84443

== ENCOUNTER 2023-10-17 09:25 | Outpatient (CLI) | payer MEDICARE, MEDICAID, SELFPAY ==
--- NOTE | ~2023-10-17 | MMUS_ITS ---
EXAMINATION: MM diagnostic nay LT w sandhya, US breast LT limited HISTORY: Left breast asymmetries on screening mammogram TECHNIQUE: Additional 3-D tomosynthesis images of the left breast were performed and synthetic 2-D im ages were generated. CAD analysis was submitted and interpreted. High resolution limited left breast ultrasound was performed. COMPARISON: 09/30/2023 FINDINGS: MAMMOGRAPHIC FINDINGS: There is persistent focal asymmetry in the upper outer quadrant of the left breast. No suspicious mas s, calcification, or architectural distortion are identified. There is a 4 mm round, circumscribed, e qual density mass in the far outer breast at the 2:00 location, 14 cm from the nipple. ULTRASOUND: No suspicious cystic or solid mass is identified. There are multiple cysts in the upper outer quadran t of the breast which measure up to 4 mm. IMPRESSION: 1. Probably benign left breast focal asymmetry. 2. Recommend 6 month follow-up left diagnostic mammogram and possible ultrasound. BI-RADS category 3, probably benign findings. Reviewed, dictated and finalized at location A. TYPEWRITER INSTALLER IMPRESSION: 1. Probably benign left breast focal asymmetry. 2. Recommend 6 month follow-up left diagnostic mammogram and possible ultrasoun d. BI-RADS category 3, probably benign findings.
== END 2023-10-17 09:26 | disposition home or self-care (01) ==
LOC: CHSIMG 09:28
PROVIDERS: PCP Family Medicine; Visit Provider Family Medicine
DX: R92.8 Other abnormal and inconclusive findings on diagnostic imaging of breast (principal)
CPT/HCPCS: 76642; 77061; 77065; G0279

== ENCOUNTER 2024-05-25 08:47 | Outpatient (CLI) | payer MEDICARE, MEDICAID, SELFPAY ==
--- NOTE | ~2024-05-25 | MMUS_ITS ---
EXAMINATION: MM diag nay implant LT w sandhya, US breast LT limited HISTORY: Follow-up left breast asymmetry TECHNIQUE: Additional 3-D tomosynthesis images of the left breast were performed and synthetic 2-D im ages were generated. CAD analysis was submitted and interpreted. High resolution Limited left breast ultrasound was performed. COMPARISON: Comparison to multiple prior studies sequentially, with oldest reviewed study dated 09/30. BREAST PARENCHYMAL COMPOSITION: Not dense: There are scattered areas of fibroglandular density. FINDINGS: MAMMOGRAPHIC FINDINGS: Asymmetries in the upper central aspect of the left breast are stable. There are no suspicious calcif ications or architectural distortion. No new masses, calcifications or architectural distortion. ULTRASOUND: Limited left breast ultrasound: At 12:00, 5 cm from the nipple there is an oval 4 mm mass with roller maker ior shadowing, likely benign oral cysts. At 12:00, 5 cm from the nipple there is a oval 4 mm hypoecho ic mass with low level internal echoes and minimal posterior acoustic enhancement, likely complicated cyst. At 12:00, 5 cm from the nipple there is a 5 mm cyst. IMPRESSION: 1. Probable benign left breast masses. 2. Recommend 6 month follow-up diagnostic bilateral mammogram and Limited left breast ultrasound BI-RADS category 3, probably benign findings. Reviewed, dictated and finalized at location B. IMPRESSION: 1. Probable benign left breast masses. 2. Recommend 6 month follow-up diagnostic bilateral mammogram and Limited left breast ultrasound BI-RADS category 3, probably benign findings.
== END 2024-05-25 08:48 | disposition home or self-care (01) ==
LOC: CHSIMG 08:50
PROVIDERS: PCP Family Medicine; Visit Provider Family Medicine
DX: R92.8 Other abnormal and inconclusive findings on diagnostic imaging of breast (principal)
CPT/HCPCS: 76642; 77061; 77065; G0279

== ENCOUNTER 2024-05-29 10:45 | Emergency (ER) | payer MEDICARE, MEDICAID, SELFPAY ==
--- NOTE | ~2024-05-29 | XR_ITS ---
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 There is hallux valgus. Lisfranc joint intact. No acute fracture or traumatic malali gnment. No focal soft tissue abnormality. Impression: 1: No acute fracture. Reviewed, dictated and finalized at location B. Impression: 1: No acute fracture.
--- NOTE | ~2024-05-29 | XR_ITS ---
XR ankle LT min 3V 05/29/2024 11:03 Indication: Left ankle pain after fall Procedure: 3 views left ankle Comparison: No prior studies for comparison. Findings: There is an old healed distal fibular diaphyseal fracture. Ankle mortise intact. No acute f racture or traumatic malalignment. No focal soft tissue abnormality. Impression: 1: No acute abnormality of the left ankle. Reviewed, dictated and finalized at location A. Impression: 1: No acute abnormality of the left ankle.
[2024-05-29 10:46] VITALS: BP 139/99; PULSE 91; RESP 20; TEMP 36.7; O2SAT 97
[2024-05-29] MEDS: KETOROLAC 30 MG/ML VIAL (*BKC) IM (11:10)
--- NOTE | 2024-05-29 11:34 | ED.LOWEXIN ---
HPI - Extremity Injury (Lower) General Chief Complaint: Extremity Injury, Lower Stated Complaint: left foot pain Time Seen by Provider: 05/29/24 10:51 Source: patient Mode of arrival: ambulatory Limitations: no limitations History of Present Illness HPI Narrative: patient here today with fall that occurred yesterday causing injury to her left foot and ankle with some mild swelling and pain that she rates about an 8/10. No other injuries has good range of motion and good pulses on the left foot with some no numbness or tingling. MD complaint: ankle injury and foot injury Onset (ago): day(s) Related Data Home Medications Medication Instructions Recorded Confirmed allopurinol 100 mg tablet 100 mg PO DAILY 02/10/21 03/17/23 omeprazole 20 mg capsule,delayed 20 mg PO BID 02/10/21 03/17/23 release quetiapine 100 mg tablet 100 mg PO DAILY 02/10/21 03/17/23 quetiapine 50 mg tablet 50 mg PO DAILY 02/10/21 03/17/23 amitriptyline 150 mg tablet 150 mg PO QHS 02/13/21 03/17/23 calcium citrate 200 mg (950 mg) 1,200 mg PO DAILY 02/13/21 03/17/23 tablet cholecalciferol (vitamin D3) 125 125 mcg PO DAILY 02/13/21 03/17/23 mcg (5,000 unit) capsule carvedilol 6.25 mg tablet 6.25 mg PO BID 05/17/21 03/17/23 buspirone 10 mg tablet 10 mg PO TID 06/10/21 03/17/23 bupropion HCl 150 mg 24 hr tablet, 150 mg PO QAM 11/27/21 03/17/23 extended release gabapentin 800 mg tablet 800 mg PO TID 11/27/21 03/17/23 hydroxyzine HCl 50 mg tablet 50 mg PO TID 11/27/21 03/17/23 tizanidine 4 mg tablet 4 mg PO HS 11/27/21 03/17/23 atomoxetine 60 mg capsule 60 mg PO 11/18/22 03/17/23 Allergies Allergy/AdvReac Type Severity Reaction Status Date / Time clindamycin Allergy Severe Itching Verified 03/17/23 10:26 hydromorphone [From Dilaudid] Allergy Severe Itching Verified 03/17/23 10:26 morphine Allergy Severe Itching Verified 03/17/23 10:26 tramadol AdvReac Severe Palpitation Verified 03/17/23 10:26 s Review of Systems Review of Systems: All systems reviewed & are unremarkable except as noted in HPI and below PMFSH Past Medical History Medical History Achilles tendinitis, left leg Anemia Anxiety Arthritis Cough Depression Dermatillomania Encounter for postoperative care Fracture of distal end of left fibula GERD (gastroesophageal reflux disease) History of MRSA infection Hypertension Left foot pain Metatarsal bone fracture Metatarsalgia, left foot Patellofemoral arthralgia of both knees Peripheral neuropathy Wears glasses Weight gain Surgical History Surgical History H/O gastric bypass H/O lumbosacral spine surgery History of breast lift History of bunionectomy History of hip surgery History of melanoma excision Hx of cholecystectomy Family History Family History Other Arthritis Depression Diabetes mellitus Esophageal cancer Heart disease High cholesterol Hypertension Neuropathy Social History Social History Smoking status: Unknown if ever smoked Alcohol intake: current Alcohol use details: 2/MONTH Substance use: never Substance use type: does not use Living arrangements: alone Gender identity (if verbalized by the patient): Female Sexual Orientation (if Verbalized by the Patient): Straight or Heterosexual Spiritual care concerns: No Exam Const: General: healthy appearing and no acute distress Nutritional Appearance: well nourished Orientation/consciousness: patient oriented x3 Limitations: no limitations Neck: Neck: normal visual inspection Chest: Chest palpation & inspection: normal inspection of the chest Resp: Effort & Inspection: normal respiratory effort Auscultation: clear to auscultation bilaterally Skin: General skin exam: normal color Rashes: no kuldip
[2024-05-29 11:59] VITALS: BP 136/89; PULSE 85; RESP 18; TEMP 36.5; O2SAT 97
== END 2024-05-29 12:04 | disposition home or self-care (01) ==
PROVIDERS: Emergency Provider Emergency Medicine
DX: S93.602A Unspecified sprain of left foot, initial encounter (principal); I10 Essential (primary) hypertension; W19.XXXA Unspecified fall, initial encounter
CPT/HCPCS: 73610; 73630; 96372; 99283; J1885

== ENCOUNTER 2024-12-15 15:46 | Emergency (ER) | payer MEDICARE, MEDICAID, SELFPAY ==
--- NOTE | ~2024-12-15 | CT_ITS ---
CT brain wo con Ordering provider: Varun Delarosa MD History: 64 years Female with . accidental fall, hit right side of head . Comparison: June 10, 2021 Technique: CT of the head without contrast. Radiation reduction technique utilized. The dose-length p roduct was 681 mGy-cm. FINDINGS: BRAIN PARENCHYMA AND CSF SPACES: No midline shift, mass effect or hemorrhage. The brain parenchyma a nd CSF spaces are otherwise normal. VISUALIZED PARANASAL SINUSES: Well aerated. MASTOIDS: Well aerated. BONES: The bones appear intact. SOFT TISSUES: Visualized nasopharynx is normal. Superficial soft tissues are normal. IMPRESSION: No acute intracranial findings. Reviewed, dictated and finalized at location A.
--- NOTE | ~2024-12-15 | XR_ITS ---
HISTORY: accidental fall COMPARISON: None TECHNIQUE: Frontal view of the pelvis was performed FINDINGS: Bone mineralization is age-appropriate. Fixation hardware within the lower lumbar spine. Bilateral hip prostheses are noted. No periprosthetic fracture is present. Narrowing and sclerosis of the bilateral SI joints is present. The pubic symphysis is unremarkable. No acute fracture or dislocation is appreciated. IMPRESSION: No periprosthetic or algaaciq bone fracture is appreciated, as detailed above. Reviewed, dictated and finalized at location A. IMPRESSION: No periprosthetic or algaaciq bone fracture is appreciated, as haim led above.
--- NOTE | ~2024-12-15 | CT_ITS ---
CT cervical spine wo con Ordering provider: Varun Delarosa MD History: . accidental fall, hit right side of head . Comparison: February 10, 2021 Technique: CT of the cervical spine was performed without contrast. Sagittal and coronal reformatted images were also obtained and reviewed. Automated exposure control and iterative reconstruction yessenia hnique were employed. The dose-length product was 483.80 mGy-cm. FINDINGS: VERTEBRAE: No subluxation or acute fracture. The occipital condyles are intact. Postoperative change s at the level of C4, C5 and C6. Degenerative changes of the spine. DISC SPACES: Narrowing of the disc C3-C4 and C6-C7. Disc spacers seen at the level of C4-C5 and C5-C6 . Multilevel uncovertebral joint osteoarthritic changes. Narrowing of the right foramen at the level of C3-C4. Bilateral narrowing of the foramina at the level of C4-C5, C5-C6 and C6-C7. PARASPINOUS SOF T TISSUES: Normal. Groundglass appearance is seen in the upper lungs. IMPRESSION: No acute osseous abnormality cervical spine. Multilevel degenerative disc disease. Reviewed, dictated and finalized at location A.
--- NOTE | ~2024-12-15 | XR_ITS ---
CHEST RADIOGRAPH CLINICAL HISTORY: fall . COMPARISON: 10/23/2021 TECHNIQUE: Single portable view of the chest. FINDINGS Significant elevation of the right hemidiaphragm with adjacent compressive atelectasis. The remainder of the lungs are clear. Dorsal column stimulator device is noted. The remainder of the cardiomediastinal silhouette is otherwise unremarkable. IMPRESSION: Elevation of the right hemidiaphragm with adjacent compressive atelectasis. The remainder of the lungs are clear. Reviewed, dictated and finalized at location A.
[2024-12-15 15:56] VITALS: BP 127/89; PULSE 101; RESP 20; TEMP 36.7; O2SAT 96
--- NOTE | 2024-12-15 16:01 | ED.FALL ---
HPI - Fall General Chief Complaint: Fall Stated Complaint: fall in shower Related Data Home Medications ?Medication ?Instructions ?Recorded ?Confirmed ?Last Taken ?Type allopurinol 100 mg tablet 100 mg PO DAILY 02/10/21 03/17/23 11/28/21 History omeprazole 20 mg capsule,delayed 20 mg PO BID 02/10/21 03/17/23 11/28/21 History release quetiapine 100 mg tablet 100 mg PO DAILY 02/10/21 03/17/23 11/28/21 History quetiapine 50 mg tablet 50 mg PO DAILY 02/10/21 03/17/23 11/28/21 History amitriptyline 150 mg tablet 150 mg PO QHS 02/13/21 03/17/23 11/28/21 History calcium citrate 1,200 mg PO DAILY 02/13/21 03/17/23 11/28/21 History cholecalciferol (vitamin D3) 125 125 mcg PO DAILY 02/13/21 03/17/23 11/28/21 History mcg (5,000 unit) capsule carvedilol 6.25 mg tablet 6.25 mg PO BID 05/17/21 03/17/23 11/29/21 History buspirone 10 mg tablet 10 mg PO TID 06/10/21 03/17/23 11/29/21 History bupropion HCl 150 mg 24 hr tablet, 150 mg PO QAM 11/27/21 03/17/23 11/28/21 History extended release gabapentin 800 mg tablet 800 mg PO TID 11/27/21 03/17/23 11/29/21 History hydroxyzine HCl 50 mg tablet 50 mg PO TID 11/27/21 03/17/23 11/29/21 History tizanidine 4 mg tablet 4 mg PO HS 11/27/21 03/17/23 11/28/21 History atomoxetine 60 mg capsule 60 mg PO 11/18/22 03/17/23 Unknown History Allergies Allergy/AdvReac Type Severity Reaction Status Date / Time clindamycin Allergy Severe Itching Verified 03/17/23 10:26 hydromorphone (From Dilaudid) Allergy Severe Itching Verified 03/17/23 10:26 morphine Allergy Severe Itching Verified 03/17/23 10:26 tramadol AdvReac Severe Palpitation Verified 03/17/23 10:26 s PMF Past Medical History Medical History Achilles tendinitis, left leg Anemia Anxiety Arthritis Cough Depression Dermatillomania Encounter for postoperative care Fracture of distal end of left fibula GERD (gastroesophageal reflux disease) History of MRSA infection Hypertension Left foot pain Metatarsal bone fracture Metatarsalgia, left foot Patellofemoral arthralgia of both knees Peripheral neuropathy Wears glasses Weight gain Surgical History Surgical History H/O gastric bypass H/O lumbosacral spine surgery History of breast lift History of bunionectomy History of hip surgery History of melanoma excision Hx of cholecystectomy Family History Family History Other Arthritis Depression Diabetes mellitus Esophageal cancer Heart disease High cholesterol Hypertension Neuropathy Social History Social History Smoking status: Unknown if ever smoked Alcohol intake: current Alcohol use details: 2/MONTH Substance use: never Substance use type: does not use Living arrangements: alone Gender identity (if verbalized by the patient): Female Sexual Orientation (if Verbalized by the Patient): Straight or Heterosexual Spiritual care concerns: No Course Vital Signs Vital signs: Vital Signs Temperature 36.7 C 12/15/24 15:56 Pulse Rate 101 H 12/15/24 15:56 Respiratory Rate 20 12/15/24 15:56 Blood Pressure 127/89 12/15/24 15:56 Pulse Oximetry 96 12/15/24 15:56 Oxygen Delivery Room Air 12/15/24 15:56 Temperature 36.7 C 12/15/24 15:56 Pulse Rate 101 H 12/15/24 15:56 Respiratory Rate 20 12/15/24 15:56 Blood Pressure 127/89 12/15/24 15:56 Pulse Oximetry 96 12/15/24 15:56 Oxygen Delivery Room Air 12/15/24 15:56 Discharge Plan Discharge Patient Language: Serbian Prescriptions: No Action allopurinol 100 mg tablet 100 mg PO DAILY quetiapine 100 mg tablet 100 mg PO DAILY omeprazole 20 mg capsule,delayed release(DR/EC) 20 mg PO BID quetiapine 50 mg tablet 50 mg PO DAILY buspirone 10 mg Tablet 10 mg PO TID atomoxetine 60 mg capsule 60 mg PO amitriptyline 150 mg tablet 150 mg PO QHS Patient Comments: per medication list cholecalciferol (vitamin D3) 125 mcg (5,000 unit) capsule 125 mcg PO DAILY calcium citrate 200 mg (950 mg) tablet 1,200 mg PO DAILY oxycodone-acetaminophen [Percocet] 7.5-325 mg tablet 1 tablet PO Q6H PRN (Reason: pain) Qty: 25 0RF tizanidine 4 mg Tablet 4 mg PO HS hydroxyzine HCl 50 mg Tablet 50 mg PO TID gabapentin 800 mg Tablet 800 mg PO TID bupropion HCl 150 mg Tablet Extended Release 24 Hr 150 mg PO QAM carvedilol 6.25 mg tablet 6.25 mg PO BID Follow-up/Referrals: Gabino,MD Adis [Primary Care Provider] -
--- NOTE | 2024-12-15 16:18 | PC.NURSE ---
1555 PT ASSESSMENT COMPLETED AND MED LIST OBTAINED 1600 ERP CALLED FOR PT [phone] PT OUT OF BED STATES SHE HAS BEEN HERE BEFORE AND NO ONE BELIEVES HER PT CALMED DOWN BY TECH AND PT RETURNED TO BED
--- NOTE | 2024-12-15 16:23 | ED_ITS ---
HPI - Fall General Chief Complaint: Fall Stated Complaint: fall in shower Source: patient Mode of arrival: ambulatory Limitations: no limitations History of Present Illness HPI Narrative: 64-year-old female with a history of hypertension, anxiety / depression, chronic pain, GERD, gout, status post gastric bypass status post revision in 2013, Dermatillomania, peripheral neuropathy, gout, hypothyroidism presents to the ED via EMS after -- 2 falls at home. Patient hit right side of her head. No hematoma /bruising. No other obvious injuries noted. No loss of consciousness. -- Ongoing tremor. Patient has staccato speech and is shaky all over. No focal neuro deficits.The patient is due to get an MRI. 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 this is a chronic problem. MD complaint: fall Onset (ago): hour(s) ( 2-1/2 hours ago) Fall from: standing Fall witnessed: no Place fall occurred: home Loss of consciousness: none Prolonged down time: no Symptoms prior to fall: none Context: tripped/slipped ( fall due to unsteady gait.) Location of injury: head Associated symptoms (after fall): weakness Related Data Home Medications ?Medication ?Instructions ?Recorded ?Confirmed ?Last Taken ?Type omeprazole 20 mg capsule,delayed 20 mg PO BID 02/10/21 03/17/23 11/28/21 History release quetiapine 100 mg tablet 100 mg PO DAILY 02/10/21 03/17/23 11/28/21 History quetiapine 50 mg tablet 50 mg PO DAILY 02/10/21 03/17/23 11/28/21 History calcium citrate 600 mg PO BID 02/13/21 03/17/23 11/28/21 History cholecalciferol (vitamin D3) 125 125 mcg PO DAILY 02/13/21 03/17/23 11/28/21 History mcg (5,000 unit) capsule carvedilol 6.25 mg tablet 6.25 mg PO BID 05/17/21 03/17/23 11/29/21 History buspirone 10 mg tablet 10 mg PO TID 06/10/21 03/17/23 11/29/21 History gabapentin 800 mg tablet 800 mg PO QID 11/27/21 03/17/23 11/29/21 History hydroxyzine HCl 50 mg tablet 50 mg PO QID 11/27/21 03/17/23 11/29/21 History bupropion HCl 300 mg 24 hr tablet, 300 mg PO DAILY 12/15/24 Unknown History extended release cyclobenzaprine 10 mg tablet 5 mg PO Q12H 12/15/24 Unknown History levothyroxine 75 mcg tablet 75 mcg PO DAILY 12/15/24 Unknown History (Synthroid) meloxicam 7.5 mg tablet 7.5 mg PO .QOD 12/15/24 Unknown History multivitamin-ferrous 1 tablet PO DAILY 12/15/24 Unknown History fumarate-folic acid 18 mg-400 mcg tablet (Centrum) Allergies Allergy/AdvReac Type Severity Reaction Status Date / Time clindamycin Allergy Severe Itching Verified 03/17/23 10:26 hydromorphone (From Dilaudid) Allergy Severe Itching Verified 03/17/23 10:26 morphine Allergy Severe Itching Verified 03/17/23 10:26 tramadol AdvReac Severe Palpitation Verified 03/17/23 10:26 s Review of Systems 2 Review of Systems: All systems reviewed & are unremarkable except as noted in HPI and below Constitutional: Constitutional: Reports as per HPI, Reports no additional constitutional complaints and Reports weakness Eyes: Eyes: Reports as per HPI and Reports no additional eye complaints ENT: Reports system reviewed and no additional complaints, except as documented and Reports as per HPI Cardiovascular: Cardiovascular: Reports as per HPI and Reports no additional cardiovascular complaints Respiratory: Respiratory: Reports as per HPI and Reports no additional respiratory complaints Gastrointestinal: Gastrointestinal: Reports as per HPI and Reports no additional gastrointestinal complaints Genitourinary: Genitourinary: Reports no additional female genitourinary complaints and Reports as per HPI Musculoskeletal: Musculoskeletal: Reports no additional musculoskeletal complaints, Reports as per HPI, Reports back pain and Reports myalgias Integumentary/Breasts: Skin/Breast: Reports system reviewed and no additional complaints, except as docu and Reports as per HPI Comments: Multiple 0.5 cm to 1 cm cutaneous ulcers caused by scratching on her legs Neurologic: Reports system reviewed and no additional complaints, except as documented and Reports as per HPI Psychiatric: Psychiatric: Reports no additional psychiatric complaints, Reports as per HPI and Reports anxiety Endocrine: Endocrine: Reports no additional endocrine complaints and Reports as per HPI Hematologic/Lymphatic: Hematologic/Lymphatic: Reports no additional hematologic/lymphatic complaints and Reports as per HPI Allergic/Immunologic: Allergic/Immunologic: Reports no additional allergic/immunologic complaints and Reports as per [facility] Past Medical History Medical History Achilles tendinitis, left leg Fracture of distal end of left fibula Patellofemoral arthralgia of both knees Peripheral neuropathy Metatarsalgia, left foot Encounter for postoperative care Cough Left foot pain Metatarsal bone fracture Dermatillomania Arthritis Wears glasses Weight gain History of MRSA infection Depression Anxiety Anemia GERD (gastroesophageal reflux disease) Hypertension Surgical History Surgical History History of bunionectomy History of melanoma excision History of breast lift H/O lumbosacral spine surgery H/O gastric bypass History of hip surgery Hx of cholecystectomy Family History Family History Other Arthritis Depression Diabetes mellitus Esophageal cancer Heart disease High cholesterol Hypertension Neuropathy Social History Social History Smoking status: Unknown if ever smoked Alcohol intake: current Alcohol use details: 2/MONTH Substance use: never Substance use type: does not use Living arrangements: alone Gender identity (if verbalized by the patient): Female Sexual Orientation (if Verbalized by the Patient): Straight or Heterosexual Spiritual care concerns: No Exam 2 Narrative: vitals are stable Const: General: ill appearing Nutritional Appearance: well nourished O rientation/consciousness: patient oriented x3 Limitations: no limitations HENMT: Head: normal to inspection Ears: external ears normal F loyda/Nose/Sinus: Normal external nose present Face and sinus: normal facial exam Mouth: Yes Normal oral and palatal mucosa present Teeth and gingiva: abnormal tooth and associated gingiva Throat: posterior oropharynx normal Eyes: Conjunctivae: conjunctivae normal Pupils: Equal, round and reactive pupils present EOM: EOMs intact bilaterally Direct Ophthalmoscopy: no photophobia Neck: Neck: normal visual inspection, no lymphadenopathy and no meningeal signs Other: no spinal tenderness Chest: Chest palpation & inspection: normal inspection of the chest Resp: Effort & Inspection: normal respiratory effort Auscultation: clear to auscultation bilaterally Cardio: Rate: regular rate Rhythm: regular rhythm GI: Auscultation: normal bowel sounds Other: no tenderness/ rigidity / rebound. 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 Neuro: General: patient oriented x3, moves all extremities, no meningeal signs, no focal motor deficits and CN's II-XI intact bilaterally Cranial nerves: Yes Nystagmus not present Speech: normal speech Gait exam (Neuro): Normal gait present ( Unsteady gait ) Extrem: General: normal to inspection and edema Psych: Mental Status: mental status grossly normal Affect: Anxious affect present Attitude: cooperative Course Course Emergency Course: anxiety-- improved dramatically after Xanax. status post fall- CT of the head and neck did not show any acute findings. chest x-ray and x-ray of the pelvis did not show any fracture/dislocation head injury-- Discussed head injury precautions Vital Signs Vital signs: Vital Signs Temperature 36.7 C 12/15/24 15:56 Pulse Rate 101 H 12/15/24 15:56 Respiratory Rate 20 12/15/24 15:56 Blood Pressure 127/89 12/15/24 15:56 Pulse Oximetry 96 12/15/24 15:56 Oxygen Delivery Room Air 12/15/24 15:56 Temperature 36.7 C 12/15/24 15:56 Pulse Rate 101 H 12/15/24 15:56 Respiratory Rate 20 12/15/24 15:56 Blood Pressure 127/89 12/15/24 15:56 Pulse Oximetry 96 12/15/24 15:56 Oxygen Delivery Room Air 12/15/24 15:56 MDM - Fall MDM Narrative Medical decision making narrative: recurrent falls head injury anxiety Differential Diagnosis Differential diagnosis: Likely concussion without loss of consciousness Medical Records Attestation: I reviewed the patient's medical records. Lab Data Attestation: I reviewed the patient's lab results. 12/15/24 17:01 12/15/24 17:01 Labs: Lab Results 12/15/24 12/15/24 12/15/24 Range/Units 17:00 17:01 17:27 WBC 4.9 (4.8-10.8) K/mm3 RBC 4.92 (4.20-5.40) M/mm3 Hgb 15.6 H (12.0-15.0) g/dL Hct 47.6 (35.0-49.0) % MCV 96.7 (78.0-102.0) fL MCH 31.7 H (27.0-31.0) pg MCHC 32.8 (32-36) g/dL RDW 13.2 (11.6-14.4) % Plt Count 235 (150-420) K/mm3 MPV 9.4 (9.2-11.8) fl Immature Gran % (Auto) 0.2 H (0.0-0.0) % Neut % (Auto) 56.6 (50.0-70.0) % Lymph % (Auto) 24.5 (18.0-42.0) % [place] % (Auto) 10.8 (2.0-11.0) % Eos % (Auto) 6.3 H (1.0-6.0) % Baso % (Auto) 1.6 H (0.0-1.0) % Lymph # (Auto) 1.20 (1.10-4.50) K/mm3 [place] # (Auto) 0.53 (0.10-0.90) K/mm3 Eos # (Auto) 0.31 (0.02-0.50) K/mm3 Baso # (Auto) 0.08 (0.00-0.10) K/mm3 Abs Immat Gran (auto) 0.01 H (0.00-0.00) K/mm3 Absolute Neuts (auto) 2.76 (1.70-7.20) K/mm3 Absolute Nucleated RBC 0.00 (0.00-0.00) K/mm3 Nucleated RBC % 0.0 (0-0.0) % Sodium 141 (136-145) mmol/L Potassium 4.5 (3.5-5.1) mmol/L Chloride 103 (98-108) mmol/L Carbon Dioxide 31 (21-32) mmol/L Anion Gap 7 (4-12) mmol/L BUN 13 (7-18) mg/dL Creatinine 1.26 H (0.55-1.02) mg/dL Estim Creat Clear Calc 51 ml/min Estimated GFR 43 L (59 - ) Glucose 104 H (70-99) mg/dL Calculated Osmolality 292 (285-295) mOsm/kg Lactic Acid 1.6 (0.4-2.0) mmol/L Calcium 9.4 (8.5-10.1) mg/dL Total Bilirubin 0.5 (0.00-1.00) mg/dL AST 31 (15-37) U/L ALT 47 (14-59) U/L Alkaline Phosphatase 150 H (46-116) U/L NT-Pro-B Natriuret Pep 51 (0-125) pg/mL Total Protein 7.2 (6.4-8.2) g/dL Albumin 3.7 (3.4-5.0) g/dL TSH 1.60 (0.36-3.74) uIU/mL Urine Color Light yellow (Yellow) Urine Appearance Clear (Clear) Urine pH 6.5 (5.0-8.0) Ur Specific [place] 1.010 (1.010-1.020) Urine Protein Negative (Negative) Urine Glucose (UA) Negative (Negative) Urine Ketones Negative (Negative) Ur Blood (Man) Negative (Negative) Urine Nitrate Negative (Negative) Urine Bilirubin Negative (Negative) Urine Urobilinogen 0.2 (0.2-1.0) mg/dL Leukocyte Esterase Rfl Negative (Negative) CARYN/UL Discharge Plan Discharge Clinical Impression: Anxiety, Recurrent falls Head injury Qualifiers: Encounter type: initial encounter Qualified Code(s): S09.90XA - Unspecified injury of head, initial encounter Patient Disposition: Home Condition: Stable Instructions: Antibiotic Form, Head Injury (ED), Anxiety (ED) Patient Language: Malawian Prescriptions: No Action bupropion HCl 300 mg tablet extended release 24 hr 300 mg PO DAILY levothyroxine [Synthroid] 75 mcg tablet 75 mcg PO DAILY cyclobenzaprine 10 mg tablet 5 mg PO Q12H meloxicam 7.5 mg tablet 7.5 mg PO .QOD Centrum 18-400 mg-mcg tablet 1 tablet PO DAILY quetiapine 100 mg tablet 100 mg PO DAILY omeprazole 20 mg capsule,delayed release(DR/EC) 20 mg PO BID quetiapine 50 mg tablet 50 mg PO DAILY buspirone 10 mg Tablet 10 mg PO TID cholecalciferol (vitamin D3) 125 mcg (5,000 unit) capsule 125 mcg PO DAILY calcium citrate 200 mg (950 mg) tablet 600 mg PO BID hydroxyzine HCl 50 mg Tablet 50 mg PO QID gabapentin 800 mg Tablet 800 mg PO QID carvedilol 6.25 mg tablet 6.25 mg PO BID Follow-up/Referrals: Gabino,MD Adis [Primary Care Provider] - Time of Disposition: 19:17
--- NOTE | 2024-12-15 16:40 | ECG_ITS ---
Test Date: 2024-12-15 17:22:03 Measurements Intervals [place] Rate: 91 P: 69 HI: 165 QRS: 55 QRSD: 110 T: 44 QT: 336 QTc: 414 Interpretive Statements SINUS RHYTHM BASELINE ARTIFACT- I, II, III, AVR, AVL, AVF NORMAL ECG No previous ECG available for comparison Electronically Signed On 12-15-2024 19:54:18 CDT by Romeo Valdez D.O.
--- NOTE | 2024-12-15 16:45 | PC.NURSE ---
On 12/15/24, the student, [TOMMIE AGUIRRE ], provided care and completed [facility] documentation on this patient. I have reviewed the student's documentation and agree with the findings.
--- OUTSIDE RECORDS SUMMARY | 2024-12-15 16:48 | XMS_ITS | Clinical Summary ---
Author Organization [facility] Address [address] [place] [address] Phone Care Team Providers Care Automotive Repair Technician Name Role Phone Adis Lloyd MD Primary Care Provider [phone] Allergies Active Allergy Reactions Criticality Noted Date Comments Clindamycin Unknown 03/27/2020 Fentanyl Unknown 06/21/2020 Medications allopurinoL (ZYLOPRIM) 100 mg tablet Take 100 mg by mouth daily. 05/19/2020 Active amitriptyline (ELAVIL) 150 mg tablet Take 150 mg by mouth daily. 05/17/2020 Active busPIRone (BUSPAR) 10 mg tablet Take 10 mg by mouth 3 times daily. 01/31/2020 Active Calcium Citrate 760 mg calcium /3.5 gram Granules Take 760 mg by mouth daily. 09/01/2011 Active carvediloL (COREG) 6.25 mg tablet Take 6.25 mg by mouth 2 times daily. 03/01/2020 Active cholecalciferol, vitamin D3, 5,000 unit Take 1 Tablet by mouth daily. 09/01/2011 Active cyanocobalamin 1,000 mcg Tablet Sustained Release Take by mouth. Active diazePAM (VALIUM) 10 mg tablet Take 5 mg by mouth daily. Active gabapentin (NEURONTIN) 600 mg tablet Take 800 mg by mouth 3 times daily. Active QUEtiapine (SEROquel) 100 mg tablet Take 100 mg by mouth daily. 09/01/2017 Active QUEtiapine (SEROquel) 50 mg tablet Take 50 mg by mouth daily. 05/29/2020 Active sertraline (ZOLOFT) 100 mg tablet Take 150 mg by mouth daily. 01/31/2020 Active tiZANidine (ZANAFLEX) 4 mg Capsule Take 4 mg by mouth daily. 09/01/2017 Active sucralfate (Carafate) 100 mg/mL suspension Take 10 mL (1 Gram) by mouth 2 times daily. 600 mL 5 07/28/2020 Active Active Problems No known active problems Family History Medical History Relation Name Comments Colon Cancer Neg Hx Social History Tobacco Use Types Packs/Day Years Used Date Smoking Tobacco: Never Smokeless Tobacco: Never Alcohol Use Standard Drinks/Week Comments Yes 0 (1 standard drink = 0.6 oz pur e alcohol) Comments Unknown Sex and Gender Information Value Date Recorded Sex Assigned at Not on file Legal Sex Female 10:28 AM CDT Gender Identity Not on file Sexual Orientation Not on file Last Filed Vital Signs Vital Sign Reading Time Taken Comments Blood Pressure 123/84 07/24/2020 1:52 PM WORK ORDER SORTING CLERK Pulse 93 07/24/2020 1:52 PM WORK ORDER SORTING CLERK Temperature 36.1 C (97 F) 07/24/2020 1:38 PM WORK ORDER SORTING CLERK Respiratory Rate 16 07/24/2020 1:52 PM WORK ORDER SORTING CLERK Oxygen Saturation 99% 07/24/2020 1:52 PM WORK ORDER SORTING CLERK Inhaled Oxygen Concentration - - Weight 131.1 kg (289 lb) 07/24/2020 12:17 PM WORK ORDER SORTING CLERK Height 170.2 cm (5' 7 ) 07/24/2020 12:17 PM WORK ORDER SORTING CLERK Body Mass Index 45.26 07/24/2020 12:17 PM WORK ORDER SORTING CLERK Plan of Treatment Health Maintenance Due Date Last Done Comments DTAP/TDAP/TD VACCINES (1 - Tdap) 02/10/1980 HPV/Cotest (21-29) 1982 CERVICAL CANCER SCREENING 1991 HPV/Cotest (30-65) 1991 PAP SMEAR 1991 BREAST CANCER SCREENING 2001 FIT-DNA Q 3 years 2006 FIT/FOBT Q 1 year 2006 Flex Sig/CT Colonography Q 5 years 2006 ZOSTER VACCINE (1 of 2) 2011 COLORECTAL SCREENING 07/24/2023 07/24/2020, 07/24/20 20 Colorectal Cancer Screening 07/24/2023 INFLUENZA VACCINE (#1) 2024 RSV VACCINE (60+ or ) (1 - 1-dose 75+ series) 02/10/2036 Procedures Procedure Name Priority Date/Time Associated Diagnosis Comments COLONOSCOPY REPORT 07/24/2020 1: 38 PM WORK ORDER SORTING CLERK from Last 3 Months or Most Recently Relevant to Health Maintenance Results * COLONOSCOPY REPORT (07/24/2020 1:38 PM WORK ORDER SORTING CLERK) Narrative Procedure Note Brady Orozco MD - 07/24/2020 1:[address] [facility] Endoscopy Patient Name: Monica Rolon Procedure Date: 07/24/2020 Date of : 1960 Admit Type: Outpatient Attending MD: Brady Orozco MD Procedure: Colonoscopy Indications: Iron deficiency anemia Providers: Brady Orozco MD Referring MD: Adis Lloyd MD Medicines: TIVA Complications: No immediate complications. Procedure: Informed consent was obtained for the procedure, including moderate sedation after risks were discussed. Based on the pre-procedure assessment, including review of the patient's medical history, medications, allergies, and review of systems, the patient was deemed to be an appropriate candidate for sedation. A timeout was performed. Continuous ECG monitoring, pulse oximetry, blood pressure monitoring, and direct observation were performed. The scope was introduced through the anus and advanced to the cecum, identified by appendiceal orifice and ileocecal valve. The quality of the bowel preparation was fair. Estimated Blood Loss: Estimated blood loss: none. Findings: The anus, rectum and colon (entire examined portion) appeared normal. Impression: - Preparation of the colon was fair. - The anus, rectum and entire examined colon are normal. - No specimens collected. Recommendation: - Repeat colonoscopy in 3 years in light of prep. Brady Orozco MD 07/24/2020 1:37:26 PM This report has been signed electronically. Number of Addenda: [phone]; [place] [address] Brady Orozco MD GI PROCEDURE ORDERABLES Angela l Result from Last 3 Months or Most Recently Relevant to Health Maintenance Insurance MEDICAID [facility] [id number] Advance Directives For more information, please contact: [phone] * Full Code (Latest Code Status on File) Date Activated Date Inactivated Comments 07/24/2020 12:16 PM 07/24/2020 5:03 PM Care Teams Automotive Repair Technician Relationship Specialty Start Date End Date Adis Lloyd MD PCP - General Student in an Organized Health Care Education/Training Program 06/20/20
--- OUTSIDE RECORDS SUMMARY | 2024-12-15 16:48 | XMS_ITS | Encounter Summary ---
Author Organization [facility] Address [address] [place] [address] Phone Care Team Providers Care Secretary Of Police Name Role Phone Corey Mortensen DO Unavailable [phone] Adis Lloyd MD Primary Care Provider [phone] Encounter Details Date Type Department Care Team (Late st Contact Info) Description 12/14/2024 Telephone [facility] Minimally Invasive Surgery [facility] Medical Office Building [address] [place] [address] Rehana Beebe, SHARI Social History Tobacco Use Types Packs/Day Years Used Date Smoking Tobacco: Never Smokeless Tobacco: Never Alcohol Use Standard Drinks/Week Comments Yes 7 (1 standard drink = 0.6 oz pur e alcohol) [facility] Utilities Answer Date Recorded In the past 12 months has [employer], gas, oil, or water [employer] threatened to shut off services in your home? No 04/21/2024 Social Connection and Isolat ion Panel [NHANES] Answer Date Recorded In a typical week, how many times do you talk on the phone with family, friends, or neighbors? More than three times a week 04/21/2024 How often do you get togethe r with friends or relatives? Once a week 04/21/2024 How often do you attend [facility] or sabianism services? Never 04/21/2024 Do you belong to any clubs o r organizations such as voodoo groups, unions, fraternal or athletic groups, or school groups? No 04/21/2024 How often do you attend meet ings of the clubs or organizations you belong to? Never 04/21/2024 Are you , , di vorced, , never , or living with a partner? 04/21/2024 AUDIT-C Answer Date Recorded Q1: How often do you have a drink containing alc ohol? Monthly or less 07/23/2024 Q2: How many drinks containi ng alcohol do you have on a typical day when you are drinking? 1 or 2 07/23/2024 Q3: How often do you have si x or more drinks on one occasion? Never 07/23/2024 Overall Financial Resource Strain (CARDIA) Answe r Date Recorded How hard is it for you to pa y for the very basics like food, housing, medical care, and heating? Not hard at all 04/21/2024 Hunger Vital Sign Answer Date Recorded Within the past 12 months, y ou worried that your food would run out before you got the money to buy more. Never true 04/21/20 24 Within the past 12 months, t he food you bought just didn't last and you didn't have money to get more. Never true 04/21/2024 PRAPARE - Transportation Answer Date Re corded In the past 12 months, has l ack of transportation kept you from medical appointments or from getting medications? No 04/02 In the past 12 months, has l ack of transportation kept you from meetings, work, or from getting things needed for daily living? No 04/21/2024 Housing Stability Vital Sign Answer Kush e Recorded In the last 12 months, was t here a time when you were not able to pay the mortgage or rent on time? No 04/21/2024 In the past 12 months, how m any times have you moved where you were living? 0 04/21/2024 At any time in the past 12 m [facility], were you homeless or living in a [facility] (including now)? No 04/21/2024 Personal Safety Answer Date Recorded Have you ever been in or are you currently in a harmful physical or emotional relationship or is someone making you feel afraid or unsafe? 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 SETTER Gender Identity Female 05/07/2022 3:54 PM CDT Sexual Orientation Straight 05/07/2022 3: 54 PM CDT Occupation Industry Job Start Date Job End Date Disabled Not on file Not on file Not on file documented as of this encounter Miscellaneous Notes * Telephone Encounter - Rehana Beebe RN - 12/14/2024 11:28 AM CDT Referred by: SELF Bariatric surgery: gastroplasty, revision to RYGB When/Where: -unknown where Dx: morbid obesity Reason: unclear from referral Testing: BMI: 42.26 Privacy set: [x] corporate controller: -Per PCP, pt has seen [facility] [place]; but doesn't want to f/u with them -Complex medical history -Unclear reason for referral- recommend f/u w/original bariatric provider, referral from current provider detailing current issues, not offering revisions for weight gain at this time. documented in this encounter Plan of Treatment Not on file documented as of this encounter Visit Diagnoses Not on filedocumented in this encounter Care Teams Secretary Of Police Relationship Specialty Start Date End Date Adis Lloyd MD [address] [place] [address] [place] [address] PCP - General 11/09/19 Corey Mortensen DO [address] [place] [id number] Medical Oncologist/Hematologis t Hematology and Oncology 09/09/18 documented as of this encounter
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
[2024-12-15] MEDS: ALPRAZolam (*CRX) 0.5 MG TABLET PO (16:49)
--- OUTSIDE RECORDS SUMMARY | 2024-12-15 16:49 | XMS_ITS | Encounter Summary ---
Author Organization [facility] Address [address] [place] [address] Care Team Providers Care First Line Production Supervisor Name Role Phone Unavailable Primary Care Provider Unavailabl e Encounter Details Date Type Department Care Team (Latest Contact Info) Description 07/07/2018 Abstract [facility] , Generic Conversion, Social History Tobacco Use Types Packs/Day Years Used Date Smoking Tobacco: Never Assessed Comments Unknown Sex and Gender Information Value Date Recorded Sex Assigned at Not on file Legal Sex Female 10:25 PM TRAIN STATION AGENT Gender Identity Not on file Sexual Orientation Not on file documented as of this encounter Plan of Treatment Not on file documented as of this encounter Visit Diagnoses Not on filedocumented in this encounter
--- OUTSIDE RECORDS SUMMARY | 2024-12-15 16:49 | XMS_ITS | Encounter Summary ---
Author Organization [facility] Address [address] [place] [address] Care Team Providers Care Talent Recruiter Name Role Phone Unavailable Primary Care Provider Unavailabl e Encounter Details Date Type Department Care Team (Late st Contact Info) Description 02/06/2019 Abstract [facility] [address] [place] [address] , Generic Conversion, Social History Tobacco Use Types Packs/Day Years Used Date Smoking Tobacco: Never Assessed Comments Unknown Sex and Gender Information Value Date Recorded Sex Assigned at Not on file Legal Sex Female 10:25 PM STAFFING DIRECTOR Gender Identity Not on file Sexual Orientation Not on file documented as of this encounter Plan of Treatment Not on file documented as of this encounter Visit Diagnoses Not on filedocumented in this encounter
--- OUTSIDE RECORDS SUMMARY | 2024-12-15 16:49 | XMS_ITS | Encounter Summary ---
Author Organization [facility] Address [address] [place] [address] Care Team Providers Care Transfer Agent Name Role Phone Unavailable Primary Care Provider Unavailabl e Encounter Details Date Type Department Care Team (Late st Contact Info) Description 11/15/2017 Abstract [facility] [address] [place] [address] , Generic Conversion, Social History Tobacco Use Types Packs/Day Years Used Date Smoking Tobacco: Never Assessed Comments Unknown Sex and Gender Information Value Date Recorded Sex Assigned at Not on file Legal Sex Female 10:25 PM LIFE INSURANCE SALES AGENT Gender Identity Not on file Sexual Orientation Not on file documented as of this encounter Plan of Treatment Not on file documented as of this encounter Visit Diagnoses Not on filedocumented in this encounter
--- OUTSIDE RECORDS SUMMARY | 2024-12-15 16:49 | XMS_ITS | Clinical Summary ---
Author Organization [facility] Address [address] [place] [address] Care Team Providers Care Director Product Name Role Phone Adis Lloyd Primary Care Provider Unavailab le Source Comments [facility],non-owned Affiliates and Associated Physician Practices is amultiple site organization consisting of ambulatory clinics and hospital sitesin [place], [place], [place] and [place]. This disclosure is being madepursuant to the Care Everywhere program and may not contain all information available regarding this patient. Last updated 18.[facility] Allergies Active Allergy Reactions Criticality Noted Date Comments Black Cohosh Itching High 11/13/2020 Clindamycin Itching 08/10/2020 Fentanyl Itching 06/21/2020 Morphine Itching High 11/13/2020 Tramadol Other,Palpitations High 11/13/2020 Medications * Be aware that medications may not be up to date on this document. Alwaysverify current medications with the patient. allopurinol (ZYLOPRIM) 100 MG tablet Take 100 mg by mouth once daily 0 Active amitriptyline (ELAVIL) 150 MG tablet Take 150 mg by mouth at bedtime 0 Active busPIRone (BUSPAR) 10 MG tablet Take 10 mg by mouth 3 times daily 0 Active carvedilol (COREG) 6.25 MG tablet Take 6.25 mg by mouth 2 times daily with morning and evening meal 0 Active gabapentin (NEURONTIN) 800 MG tablet Take 800 mg by mouth 3 times daily 0 Active hydrOXYzine hcl (ATARAX) 50 MG tablet Take 50 mg by mouth 3 times daily 0 Active tiZANidine (ZANAFLEX) 4 MG tablet Take 4 mg by mouth at bedtime 0 Active vitamine D3 (CHOLECALCIFERO L) 250 MCG (35973 UT) capsule Take 10,000 Units by mouth once daily Active diazePAM (VALIUM) 10 MG tablet Take 10 mg by mouth 3 times daily as needed for Anxiety Active CALCIUM CITRATE 600 mg TABS tablet Take 600 mg by mouth 2 times daily Active QUEtiapine (SEROQUEL) 100 MG tablet Take 150 mg by mouth at bedtime 8 Active lidocaine (LIDODERM) 5 % patch Apply 1 patch to skin once daily Apply to neck, shoulder, or lumbar Active omeprazole (PRILOSEC) 20 MG capsule Take 1 (one) capsule by mouth 2 times daily, before breakfast and supper 60 capsule 2 1 Active omeprazole (PRILOSEC) 20 MG capsule TAKE 1 CAPSULE BY MOUTH TWICE DAILY BEFORE BREAKFAST AND SUPPER 180 capsule 3 1 Active buPROPion XL 24hr (WELLBUTRIN-XL) 150 MG tablet Take 150 mg by mouth once daily Active iohexol (OMNIPAQUE 350) 350 MG/ML contrast by Intravenous route Contrast - Once 2 Active Active Problems Problem Noted Date Diagnosed Date S/P gastric bypass 03/28/2021 Iron deficiency anemia 10/16/2020 Immunizations Immunization Administration Dates Next Due INFLUENZA VACCINE, TRIV. (AF LURIA, FLUZONE TRIVALENT; 6MO+) (IIV3) 09/30/2016 Trover primary monoval ent 12+ yr 0.3mL Purple cap 02/07/2021,01/15/2021 HEP B VACCINE, ADULT 3 DOSE 07/20/2018, 8,07/09/2017 INFLUENZA VACCINE 07/27/2019 INFLUENZA VACCINE, QUADR. (F LUZONE; FLULAVAL; FLUARIX; AFLURIA QUADRIVALENT; 6MO+), 0.5 ML (IIV4) 07/20/2020,07/15/2019,07/20/2018,2016 PNEUMOCOCCAL PPSV23 02/22/2019 TDAP (7yrs+) 11/02/2009 Family History Medical History Relation Name Comments Cancer - Esophageal Father CAD (Coronary Artery Disease) Mother Relation Name Status Comments Father Mother Social History Tobacco Use Types Packs/Day Years Used Date Smoking Tobacco: Never Smokeless Tobacco: Never Alcohol Use Standard Drinks/Week Comments Not Currently 1 (1 standard drink = 0.6 oz pur e alcohol) Comments No Sex and Gender Information Value Date Recorded Sex Assigned at Not on file Legal Sex Female 11:14 AM CDT Gender Identity Not on file Sexual Orientation Not on file Last Filed Vital Signs Vital Sign Reading Time Taken Comments Blood Pressure 118/78 08/23/2021 2:30 PM SENIOR ACCOUNTANT Pulse 68 08/23/2021 2:30 PM SENIOR ACCOUNTANT Temperature 36.8 C (98.3 F) 08/23/2021 2:30 PM SENIOR ACCOUNTANT Respiratory Rate 18 08/23/2021 2:30 PM SENIOR ACCOUNTANT Oxygen Saturation 98% 08/23/2021 2:30 PM SENIOR ACCOUNTANT Inhaled Oxygen Concentration - - Weight 118.3 kg (260 lb 12.8 oz) 08/23/2021 2:30 PM SENIOR ACCOUNTANT Height 170.2 cm (5' 7 ) 08/23/2021 2:30 PM SENIOR ACCOUNTANT Body Mass Index 40.85 08/23/2021 2:30 PM SENIOR ACCOUNTANT Plan of Treatment Health Maintenance Due Date Last Done Comments COLOGUARD (AGES 45-75) - COLON CA SCREENING [address] COLONOGRAPHY - COLON CA SCREENING 1961 FIT - COLON CA SCREENING 1961 FLEX SIG - COLON CA SCREENING 1961 LIPID TESTING 1961 PAP SMEAR 1961 ZOSTER VACCINE (1 of 2) 2011 DTAP/TDAP/TD VACCINES (2 - Td or Tdap) 11/03/2019 11/02/2009 PNEUMOCOCCAL VACCINE 50+ (2 of 2 - PCV) 02/23/2020 02/22/2019 Respiratory Syncytial Virus (RSV) Vaccine Pt: or over 60 yrs (1 - Risk 60-74 years 1-dose series) 2021 MAMMOGRAM 01/23/2023 01/23/2021 COVID-19 VACCINE (3 - season) 2024 02/07/2021, 01/15/2021 SCREENING FOR DIABETES 08/03/2024 , 08/01/2021, 03/30/2021, Additional history exists DEPRESSION SCREENING 09/01/2024 MEDICARE AWV CALENDAR YEAR 2024 INFLUENZA VACCINE (Season Ended) 2025 07/20/2020, 07/27/2019, 07/15/2019, Additional history exists COLONOSCOPY - COLON CA SCREENING 07/24/2030 07/24/2020 Colorectal Cancer Screening 07/24/2030 HEPATITIS B VACCINE Completed 07/20/2018, 09/23/2017, 07/09/2017 HEPATITIS C SCREENING Completed 08/03/2021 , 07/11/2020, 07/11/2020, Additional history exists HIV SCREENING Completed 08/03/2021 HIB VACCINE Aged Out No longer eligi ble based on patient's age to complete this topic HPV VACCINE Aged Out No longer eligi ble based on patient's age to complete this topic MENINGOCOCCAL (Group B) VACCINE SHARED DECISION-MAKING Aged Out No longer eligible based on patient's age to complete this topic MENINGOCOCCAL GROUPS A/C/Y/W VACCINE Aged Out No longer eligible based on patient's age to complete this topic Procedures Procedure Name Priority Date/Time Associated Diagnosis Comments COMPREHENSIVE METABOLIC PANEL STAT 08/03/2021 8:33 PM SENIOR ACCOUNTANT HEPATITIS C ANTIBODY STAT 08/03/2021 8:33 PM SENIOR ACCOUNTANT HIV-1 HIV-2 ANTIBODY + HIV P24 AG PANEL STAT 08/03/2021 8:33 PM SENIOR ACCOUNTANT from Last 3 Months or Most Recently Relevant to Health Maintenance Results * HIV-1 HIV-2 ANTIBODY + HIV P24 AG PANEL (08/03/2021 8:33 PM SENIOR ACCOUNTANT) HIV1/2 Ab + P24 Ag Non Reactive Non Reactive 08/03/2021 9:28 PM SENIOR ACCOUNTANT [facility] Blood BLOOD SPECIMEN / Unknown Venipuncture / Unknown 08/03/2021 8:33 PM SENIOR ACCOUNTANT 08/03/2021 8:46 PM SENIOR ACCOUNTANT Narrative [facility] - 08/03/2021 9:28 PM SENIOR ACCOUNTANT No Laboratory evidence of HIV infection. Laurence Sahu MD LAB - CHEMISTRY ORDERABLES Final Result [facility] [address] [place] [id number] * (ABNORMAL) COMPREHENSIVE METABOLIC PANEL (08/03/2021 8:33 PM SENIOR ACCOUNTANT) Glucose 105 70 - 105 mg/dL 08/03/2021 9:13 PM [facility] Sodium 133(L) 136 - 145 mmol/L 08/03/2021 9:13 PM [facility] Potassium 4.4 3.5 - 5.1 mmol/L 08/03/2021 9:13 PM [facility] Chloride 100 98 - 107 mmol/L 08/03/2021 9:13 PM [facility] CO2 18(L) 23 - 31 mmol/L 08/03/2021 9:13 PM [facility] Calcium 9.6 8.4 - 10.4 mg/dL 08/03/2021 9:13 PM [facility] Anion Gap 15 8 - 18 mmol/L 08/03/2021 9:13 PM [facility] BUN 14 9.8 - 20.1 mg/dL 08/03/2021 9:13 PM [facility] Creatinine 0.85 0.57 - 1.11 mg/dL 08/03/2021 9:13 PM [facility] Alkaline Phosphatase 169(H) 40 - 150 U/L 08/03/2021 9:13 PM [facility] ALT 271(H) 0 - 61 U/L 08/03/2021 9:13 PM [facility] AST 152(H) 5 - 34 U/L 08/03/2021 9:13 PM [facility] Protein Total 7.3 6.4 - 8.3 gm/dL 08/03/2021 9:13 PM [facility] Albumin 3.9 3.2 - 4.6 gm/dL 08/03/2021 9:13 PM [facility] Bilirubin Total 1.1 0.2 - 1.2 mg/dL 08/03/2021 9:13 PM [facility] eGFR by MDRD >60 >60 mL/min/1.7 3m2 08/03/2021 9:13 PM [facility] eGFR by MDRD >60 >60 mL/min/1.7 3m2 08/03/2021 9:13 PM SENIOR ACCOUNTANT [facility] Blood BLOOD SPECIMEN / Unknown Venipuncture / Unknown 08/03/2021 8:33 PM SENIOR ACCOUNTANT 08/03/2021 8:46 PM SENIOR ACCOUNTANT Payton Cardona LOAN ANALYST-PAINTER AND PAPERHANGER APPRENTICE LAB - CHEMISTRY OR DERABLES Final Result Performing Organization Address City/[facility]/ZIP Co de Phone Number [facility] [address] [place], [place] [id number] * HEPATITIS C ANTIBODY (08/03/2021 8:33 PM SENIOR ACCOUNTANT) [facility] HCV Antibody Screen Non Reactive Non Reactive 08/03/2021 10:14 PM SENIOR ACCOUNTANT [facility] Blood BLOOD SPECIMEN / Unknown Venipuncture / Unknown 08/03/2021 8:33 PM SENIOR ACCOUNTANT 08/03/2021 8:46 PM SENIOR ACCOUNTANT Narrative [facility] - 08/03/2021 10:14 PM SENIOR ACCOUNTANT Non Reactive - Antibodies to Hepatitis C virus (HCV) were not detected, result does not exclude early acute HCV infection. Laurence Sahu MD LAB - CHEMISTRY ORDERABLES Final Result Performing Organization Address [facility] Co de Phone Number [facility] [address] [place] [address] from Last 3 Months or Most Recently Relevant to Health Maintenance Insurance [facility] MANAGED MEDICARE ADV MEDICAID [facility] Advance Directives * Full Code (Latest Code Status on File) Date Activated Date Inactivated Comments 03/28/2021 4:55 PM 03/30/2021 2:51 PM Care Teams Director Product Relationship Specialty Start Date End Date Adis Lloyd Update Information PCP - General Family Medicine 08/07/20
--- OUTSIDE RECORDS SUMMARY | 2024-12-15 16:49 | XMS_ITS | Data Portability ---
Author Organization [place] [facility], Main Office Address [address] [place] [address] Care Team Providers [facility] Ward Clerk Name Role Phone ADIS LLOYD Primary Care Provider [phone] ADIS LLOYD Referring Provider Assessment Encounter Date Assessment Date Assessment LastModified by Organization Details LastModified Time 11/10/2023 11/10/2023 63 yo F with - HYPOTHYROIDISM, improved - CHRONIC LOW BACK PAIN - RT SHOULDER PAIN, chronic - DDD L-SPINE - B/L FEET PAIN, Chronic - LT HIP AND THIGH PAIN, Chronic - HTN - CKD III - HLD (Diet controlled), Improved - PRURITUS, Chronic - OCD - DEPRESSION - ANXIETY DISORDER - PALPITATIONS, Chronic - GOUT - CHRONIC NECK & BACK PAIN - CHRONIC BACK PAIN (S/P SPINAL FUSION; L4-5 in 2013) - SEVERE RT HIP OA; S/P RT TRP (11/14/17) & LT THR (2013) - POLYARTHRITIS - ELEVATED ALP, Chronic - ELEVATED LFTs - HOT FLASHES - MEMORY IMPAIRMENT - MORBID OBESITY III (S/P GASTRIC BYPASS SURGERY) - H/O HEMATURIA - H/O VIT B12 DEFICIENCY - H/O ANEMIA - H/O MULTIPLE SUPERFICIAL ULCERS Annual labs, Hepatitis panel, GIORGIO, RF: 04/09/23. Annual labs: 04/01/22. X-ray L-spine: 06/28/21. X-ray Rt shoulder: 06/28/21. CT L-spine wo: 02/10/21. X-ray Lt leg & foot: 02/10/21. US thyroid: 01/23/21. Annual labs: 01/23/21. X-ray Lt femur & hip: 01/09/21. Annual labs: 01/04/20. Exercise stress test & Echo: 01/04/20. Annual labs: 10/28/18. MRI L-spine wo: 08/21/18. X-ray L-spine: 08/21/18. X-ray b/l knees: 08/21/18. Anemia panel: 07/30/18. US liver/GB: 07/04/17. Hepatitis panel: 06/25/17. Repeat UA & Urine cytology: 06/25/17. Annual labs: 06/19/17. X-ray b/l hips with pelvis: 06/19/17. Wt: 292(10/26/20) - 284(11/22/20) - 278(12/21/20) - 270(02/15/21) - 261(05/31/21) [Pt stopped] Wt: 273(01/23/23) - 265(02/18/23) - 252(03/25/23) - 246(04/29/23) - 235(09/03/23) D/w pt in detail about her conditions, recent labs & imagines and further plan of care. MAWV questionnaire reviewed with pt. Answered all questions and concerns for the pt. Fall risk precautions explained. All questions answered for the pt. All meds verified with pt. Meds as directed. Advised to take any pain meds with food. Cont OTC shoe inserts as directed. Diet and exercise explained in detail. Explained about different options for her. BP diary education given and advised to call us if any concerns. Educated in detail about alarming symptoms to monitor at home and call us if needed. Pt verbalized understanding it. F/u with Neuro as per schedule. Cont f/u with Wt loss clinic at [facility] as per schedule. Cont f/u with English Tutor at [facility] as per schedule. Cont f/u with Derm at [place] as per schedule. Cont f/u with Wound clinic at [facility] as per schedule. Cont f/u with Psych & counsellor at [facility] as per schedule. Cont f/u with Cardio at [facility] as per schedule. Cont f/u with Spine surgeon at [place] as per schedule. Cont f/u with Pain clinic at [facility] as per schedule. Cont f/u with Ortho at [place] as per schedule. Cont f/u with Hemat as per schedule. Cont f/u with Gyne as per schedule. Cont f/u with Ophtho at [facility] as per schedule. Cont f/u with GI as per schedule. Pt has seen Psych & counsellor at [facility] in the past, but doesn't want to f/u with them. Pt has seen Wt loss clinic at [facility] [facility]; but doesn't want to f/u with them. Pt got S/e from Tramadol, Levothyroxine in the past. Lidoderm patch is too costly for pt. HM: WWE - 11/21, normal as per pt. Cont f/u with Gyne as per schedule. Mammo - 10/17/23, benign. Repeat after 6 months. EGD - 10/22, Gastritis ++. Cont f/u with GI as per their recommendations. Colonoscopy - 08/20, normal as per pt. Cont f/u with GI as per their recommendations. DEXA - 10/17/23, normal. Tdap - 2013. Flu - Pt declined. Pneumo - 02/22/19. Shingrix - At pharmacy/[facility]. Hep A - 10/26/20, 08/14/21. F/u in 2 months. Annual labs in 04/24. [email or web address] Not available 11/10/2023 17:00:00 05/11/2024 05/11/2024 64 yo F with - HYPOTHYROIDISM, improved - CHRONIC LOW BACK PAIN - RT SHOULDER PAIN, chronic - DDD L-SPINE - B/L FEET PAIN, Chronic - LT HIP AND THIGH PAIN, Chronic - HTN - CKD III - HLD (Diet controlled), Improved - PRURITUS, Chronic - OCD - DEPRESSION - ANXIETY DISORDER - PALPITATIONS, Chronic - GOUT - CHRONIC NECK PAIN (S/P FUSION in 04/24) - CHRONIC BACK PAIN (S/P FUSION; L4-5 in 2013) - SEVERE RT HIP OA; S/P RT TRP (11/14/17) & LT THR (2013) - POLYARTHRITIS - ELEVATED ALP, Chronic - ELEVATED LFTs - HOT FLASHES - MEMORY IMPAIRMENT - MORBID OBESITY III (S/P GASTRIC BYPASS SURGERY) - H/O HEMATURIA - H/O VIT B12 DEFICIENCY - H/O ANEMIA - H/O MULTIPLE SUPERFICIAL ULCERS Annual labs, Hepatitis panel, GIORGIO, RF: 04/09/23. Annual labs: 04/01/22. X-ray L-spine: 06/28/21. X-ray Rt shoulder: 06/28/21. CT L-spine wo: 02/10/21. X-ray Lt leg & foot: 02/10/21. US thyroid: 01/23/21. Annual labs: 01/23/21. X-ray Lt femur & hip: 01/09/21. Annual labs: 01/04/20. Exercise stress test & Echo: 01/04/20. Annual labs: 10/28/18. MRI L-spine wo: 08/21/18. X-ray L-spine: 08/21/18. X-ray b/l knees: 08/21/18. Anemia panel: 07/30/18. US liver/GB: 07/04/17. Hepatitis panel: 06/25/17. Repeat UA & Urine cytology: 06/25/17. Annual labs: 06/19/17. X-ray b/l hips with pelvis: 06/19/17. Wt: 292(10/26/20) - 284(11/22/20) - 278(12/21/20) - 270(02/15/21) - 261(05/31/21) [Pt stopped] Wt: 273(01/23/23) - 265(02/18/23) - 252(03/25/23) - 246(04/29/23) - 235(09/03/23) D/w pt in detail about her conditions, recent labs & imagines and further plan of care. All questions answered for the pt. All meds verified with pt. Meds as directed. Advised to take any pain meds with food. Cont OTC shoe inserts as directed. Diet and exercise explained in detail. Explained about different options for her. BP diary education given and advised to call us if any concerns. Educated in detail about alarming symptoms to monitor at home and call us if needed. Pt verbalized understanding it. F/u with Neuro as per schedule. Cont f/u with Wt loss clinic at [facility] as per schedule. Cont f/u with English Tutor at [facility] as per schedule. Cont f/u with Derm at [facility] as per schedule. Cont f/u with Wound clinic at [facility] as per schedule. Cont f/u with Psych & counsellor at [facility] as per schedule. Cont f/u with Cardio at [facility] as per schedule. Cont f/u with Spine surgeon at [facility] as per schedule. Cont f/u with Pain clinic at [facility] as per schedule. Cont f/u with Ortho at [place] as per schedule. Cont f/u with Hemat as per schedule. Cont f/u with Gyne as per schedule. Cont f/u with Ophtho at [facility] as per schedule. Cont f/u with GI as per schedule. Pt has seen Psych & counsellor at [facility] in the past, but doesn't want to f/u with them. Pt has seen Wt loss clinic at [facility] [facility]; but doesn't want to f/u with them. Pt got S/e from Tramadol, Levothyroxine in the past. Lidoderm patch is too costly for pt. HM: WWE - 11/21, normal as per pt. Cont f/u with Gyne as per schedule. Mammo - 10/17/23, benign. Repeat after 6 months. Ordered. EGD - 10/22, Gastritis ++. Cont f/u with GI as per their recommendations. Colonoscopy - 08/20, normal as per pt. Cont f/u with GI as per their recommendations. DEXA - 10/17/23, normal. Tdap - 2013. Flu - Pt declined. Pneumo - 02/22/19. Shingrix - At pharmacy/[facility]. Hep A - 10/26/20, 08/14/21. F/u in 3-4 weeks. Annual labs in 04/24. [email or web address] Not available 05/11/2024 14:43:24 06/22/2024 06/22/2024 64 yo F with - WELL ADULT VISIT - B/L EAR WAX - HYPOTHYROIDISM, improved - CHRONIC LOW BACK PAIN - RT SHOULDER PAIN, chronic - DDD L-SPINE - B/L FEET PAIN, Chronic - LT HIP AND THIGH PAIN, Chronic - HTN - CKD III - HLD (Diet controlled), Improved - PRURITUS, Chronic - OCD - DEPRESSION - ANXIETY DISORDER - PALPITATIONS, Chronic - GOUT - CHRONIC NECK PAIN (S/P FUSION in 04/24) - CHRONIC BACK PAIN (S/P FUSION; L4-5 in 2013) - SEVERE RT HIP OA; S/P RT TRP (11/14/17) & LT THR (2013) - POLYARTHRITIS - ELEVATED ALP, Chronic - ELEVATED LFTs - HOT FLASHES - MEMORY IMPAIRMENT - MORBID OBESITY III (S/P GASTRIC BYPASS SURGERY) - H/O HEMATURIA - H/O VIT B12 DEFICIENCY - H/O ANEMIA - H/O MULTIPLE SUPERFICIAL ULCERS Annual labs, Hepatitis panel, GIORGIO, RF: 04/09/23. Annual labs: 04/01/22. X-ray L-spine: 06/28/21. X-ray Rt shoulder: 06/28/21. CT L-spine wo: 02/10/21. X-ray Lt leg & foot: 02/10/21. US thyroid: 01/23/21. Annual labs: 01/23/21. X-ray Lt femur & hip: 01/09/21. Annual labs: 01/04/20. Exercise stress test & Echo: 01/04/20. Annual labs: 10/28/18. MRI L-spine wo: 08/21/18. X-ray L-spine: 08/21/18. X-ray b/l knees: 08/21/18. Anemia panel: 07/30/18. US liver/GB: 07/04/17. Hepatitis panel: 06/25/17. Repeat UA & Urine cytology: 06/25/17. Annual labs: 06/19/17. X-ray b/l hips with pelvis: 06/19/17. Wt: 292(10/26/20) - 284(11/22/20) - 278(12/21/20) - 270(02/15/21) - 261(05/31/21) [Pt stopped] Wt: 273(01/23/23) - 265(02/18/23) - 252(03/25/23) - 246(04/29/23) - 235(09/03/23) [Pt stopped] D/w pt in detail about her conditions, recent labs & imagines and further plan of care. Will do routine labs. All questions answered for the pt. All meds verified with pt. Meds as directed. Advised to take any pain meds with food. Cont OTC shoe inserts as directed. Diet and exercise explained in detail. Explained about different options for her. BP diary education given and advised to call us if any concerns. Educated in detail about alarming symptoms to monitor at home and call us if needed. Pt verbalized understanding it. F/u with Neuro as per schedule. Cont f[facility] with [facility] as per [facility]. Cont f/u with English Tutor at [facility] as per schedule. Cont f/u with Derm at [facility] as per schedule. Cont f/u with Wound clinic at [facility] as per schedule. Cont f/u with Psych & counsellor at [facility] as per schedule. Cont f/u with Cardio at [facility] as per schedule. Cont f/u with Spine surgeon at [facility] as per schedule. Cont f/u with Pain clinic at [facility] as per schedule. Cont f/u with Ortho at [place] as per schedule. Cont f/u with Hemat as per schedule. Cont f/u with Gyne as per schedule. Cont f/u with Ophtho at [facility] as per schedule. Cont f/u with GI as per schedule. Pt has seen Psych & counsellor at [facility] in the past, but doesn't want to f/u with them. Pt has seen Wt loss clinic at [facility]; but doesn't want to f/u with them. Pt got S/e from Tramadol, Levothyroxine in the past. Lidoderm patch is too costly for pt. HM: WWE - 11/21, normal as per pt. Cont f/u with Gyne as per schedule. Mammo - 05/25/24, benign. Repeat after 6 months. Ordered too. EGD - 10/22, Gastritis ++. Cont f/u with GI as per their recommendations. Colonoscopy - 08/20, normal as per pt. Cont f/u with GI as per their recommendations. DEXA - 10/17/23, normal. Tdap - 06/22/24. Flu - 06/22/24. Pneumo - 02/22/19. Shingrix - At pharmacy/[facility]. Hep A - 10/26/20, 08/14/21. F/u in 2-3 weeks. B/l ear flushing on next visit. Annual labs in 06/25. [email or web address] Not available 06/22/2024 12:53:15 07/08/2024 07/08/2024 64 yo F with - B/L EAR WAX - HYPOTHYROIDISM, improved - CHRONIC LOW BACK PAIN - RT SHOULDER PAIN, chronic - DDD L-SPINE - B/L FEET PAIN, Chronic - LT HIP AND THIGH PAIN, Chronic - HTN - CKD III - HLD (Diet controlled), Improved - PRURITUS, Chronic - OCD - DEPRESSION - ANXIETY DISORDER - PALPITATIONS, Chronic - GOUT - CHRONIC NECK PAIN (S/P FUSION in 04/24) - CHRONIC BACK PAIN (S/P FUSION; L4-5 in 2013) - SEVERE RT HIP OA; S/P RT TRP (11/14/17) & LT THR (2013) - POLYARTHRITIS - ELEVATED ALP, Chronic - ELEVATED LFTs - HOT FLASHES - MEMORY IMPAIRMENT - MORBID OBESITY III (S/P GASTRIC BYPASS SURGERY) - H/O HEMATURIA - H/O VIT B12 DEFICIENCY - H/O ANEMIA - H/O MULTIPLE SUPERFICIAL ULCERS Annual labs: 06/22/24. Annual labs, Hepatitis panel, GIORGIO, RF: 04/09/23. Annual labs: 04/01/22. X-ray L-spine: 06/28/21. X-ray Rt shoulder: 06/28/21. CT L-spine wo: 02/10/21. X-ray Lt leg & foot: 02/10/21. US thyroid: 01/23/21. Annual labs: 01/23/21. X-ray Lt femur & hip: 01/09/21. Annual labs: 01/04/20. Exercise stress test & Echo: 01/04/20. Annual labs: 10/28/18. MRI L-spine wo: 08/21/18. X-ray L-spine: 08/21/18. X-ray b/l knees: 08/21/18. Anemia panel: 07/30/18. US liver/GB: 07/04/17. Hepatitis panel: 06/25/17. Repeat UA & Urine cytology: 06/25/17. Annual labs: 06/19/17. X-ray b/l hips with pelvis: 06/19/17. Wt: 292(10/26/20) - 284(11/22/20) - 278(12/21/20) - 270(02/15/21) - 261(05/31/21) [Pt stopped] Wt: 273(01/23/23) - 265(02/18/23) - 252(03/25/23) - 246(04/29/23) - 235(09/03/23) [Pt stopped] D/w pt in detail about her conditions, recent labs & imagines and further plan of care. All questions answered for the pt. All meds verified with pt. Meds as directed. Advised to take any pain meds with food. Cont OTC shoe inserts as directed. Diet and exercise explained in detail. Explained about different options for her. BP diary education given and advised to call us if any concerns. Educated in detail about alarming symptoms to monitor at home and call us if needed. Pt verbalized understanding it. F/u with Neuro as per schedule. Cont f/u with Wt loss clinic at [facility] as per schedule. Cont f/u with English Tutor at [facility] as per schedule. Cont f/u with Derm at [facility] as per schedule. Cont f/u with Wound clinic at [facility] as per schedule. Cont f/u with Psych & counsellor at [facility] as per schedule. Cont f/u with Cardio at [facility] as per schedule. Cont f/u with Spine surgeon at [facility] as per schedule. Cont f/u with Pain clinic at [facility] as per schedule. Cont f/u with Ortho at [place] as per schedule. Cont f/u with Hemat as per schedule. Cont f/u with Gyne as per schedule. Cont f/u with Ophtho at [facility] as per schedule. Cont f/u with GI as per schedule. Pt has seen Psych & counsellor at [facility] in the past, but doesn't want to f/u with them. Pt has seen Wt loss clinic at [facility]; but doesn't want to f/u with them. Pt got S/e from Tramadol, Levothyroxine in the past. Lidoderm patch is too costly for pt. HM: WWE - 11/21, normal as per pt. Cont f/u with Gyne as per schedule. Mammo - 05/25/24, benign. Repeat after 6 months. Ordered too. EGD - 10/22, Gastritis ++. Cont f/u with GI as per their recommendations. Colonoscopy - 08/20, normal as per pt. Cont f/u with GI as per their recommendations. DEXA - 10/17/23, normal. Tdap - 06/22/24. Flu - 06/22/24. Pneumo - 02/22/19. Shingrix - At pharmacy/[facility]. Hep A - 10/26/20, 08/14/21. F/u in 3 months. B/l ear flushing on next visit. Annual labs in 06/25. Not available 07/08/2024 12:38:41 10/12/2024 10/12/2024 64 yo F with - B/L EAR WAX; s/p flushing today - HYPOTHYROIDISM, improved - CHRONIC LOW BACK PAIN - RT SHOULDER PAIN, chronic - DDD L-SPINE - B/L FEET PAIN, Chronic - LT HIP AND THIGH PAIN, Chronic - HTN - CKD III - HLD (Diet controlled), Improved - PRURITUS, Chronic - OCD - DEPRESSION - ANXIETY DISORDER - PALPITATIONS, Chronic - GOUT - CHRONIC NECK PAIN (S/P FUSION in 04/24) - CHRONIC BACK PAIN (S/P FUSION; L4-5 in 2013) - SEVERE RT HIP OA; S/P RT TRP (11/14/17) & LT THR (2013) - POLYARTHRITIS - ELEVATED ALP, Chronic - ELEVATED LFTs - HOT FLASHES - MEMORY IMPAIRMENT - MORBID OBESITY III (S/P GASTRIC BYPASS SURGERY) - H/O HEMATURIA - H/O VIT B12 DEFICIENCY - H/O ANEMIA - H/O MULTIPLE SUPERFICIAL ULCERS Annual labs: 06/22/24. Annual labs, Hepatitis panel, GIORGIO, RF: 04/09/23. Annual labs: 04/01/22. X-ray L-spine: 06/28/21. X-ray Rt shoulder: 06/28/21. CT L-spine wo: 02/10/21. X-ray Lt leg & foot: 02/10/21. US thyroid: 01/23/21. Annual labs: 01/23/21. X-ray Lt femur & hip: 01/09/21. Annual labs: 01/04/20. Exercise stress test & Echo: 01/04/20. Annual labs: 10/28/18. MRI L-spine wo: 08/21/18. X-ray L-spine: 08/21/18. X-ray b/l knees: 08/21/18. Anemia panel: 07/30/18. US liver/GB: 07/04/17. Hepatitis panel: 06/25/17. Repeat UA & Urine cytology: 06/25/17. Annual labs: 06/19/17. X-ray b/l hips with pelvis: 06/19/17. Wt: 292(10/26/20) - 284(11/22/20) - 278(12/21/20) - 270(02/15/21) - 261(05/31/21) [Pt stopped] Wt: 273(01/23/23) - 265(02/18/23) - 252(03/25/23) - 246(04/29/23) - 235(09/03/23) [Pt stopped] D/w pt in detail about her conditions, recent labs & imagines and further plan of care. Verbal consent taken for b/l ear flushing today. Pt did well with it. All questions answered for the pt. All meds verified with pt. Meds as directed. Advised to take any pain meds with food. Cont OTC shoe inserts as directed. Diet and exercise explained in detail. Explained about different options for her. BP diary education given and advised to call us if any concerns. Educated in detail about alarming symptoms to monitor at home and call us if needed. Pt verbalized understanding it. F/u with Neuro at [facility] as per schedule. Cont f/u with Wt loss clinic at [facility] as per schedule. Cont f/u with English Tutor at [facility] as per schedule. Cont f/u with Derm at [facility] as per schedule. Cont f/u with Wound clinic at [facility] as per schedule. Cont f/u with Psych & counsellor at [facility] as per schedule. Cont f/u with Cardio at [facility] as per schedule. Cont f/u with Spine surgeon at [facility] as per schedule. Cont f/u with Pain clinic at [facility] as per schedule. Cont f/u with Ortho at [place] as per schedule. Cont f/u with Hemat as per schedule. Cont f/u with Gyne as per schedule. Cont f/u with Ophtho at [facility] as per schedule. Cont f/u with GI as per schedule. Pt has seen Psych & counsellor at [facility] in the past, but doesn't want to f/u with them. Pt has seen Wt loss clinic at [facility]; but doesn't want to f/u with them. Pt got S/e from Tramadol, Levothyroxine in the past. Lidoderm patch is too costly for pt. Wegovy and Zepbound are too costly for pt. HM: WWE - 11/21, normal as per pt. Cont f/u with Gyne as per schedule. Mammo - 05/25/24, benign. Repeat after 6 months. Ordered. EGD - 10/22, Gastritis ++. Cont f/u with GI as per their recommendations. Colonoscopy - 08/20, normal as per pt. Cont f/u with GI as per their recommendations. DEXA - 10/17/23, normal. Tdap - 06/22/24. Flu - 06/22/24. Pneumo - 02/22/19. Shingrix - At pharmacy/HD. Hep A - 10/26/20, 08/14/21. F/u in 3-4 months. Annual labs in 06/25. [email or web address] Not available 10/12/2024 12:37:44 Plan of Treatment Reminders Order Date Submit Date Provider Last Modified By Organization Details Last Modified Time Details Appointments Follow Up 30 2024 01:00P Nelly Lloyd MD Not available Not available Not available Lab vitamin B12 + folate, serum or blood 2023 [facility] [address] [place] [address], [id number], 07/01/2024 11:29:00 magnesium , serum or plasma 2023 ELLEN [facility]), [address] [place], [address], 06/22/2024 19:25:32 vitamin D, 25-hydrox y, total, serum [id number] [place] [address]), [address] [place] [address], [id number], 07/01/2024 11:29:36 uric acid, serum or plasma 2023 [facility]), [address] [place], [address], 06/22/2024 19:25:26 HbA1c (hemoglob in A1c), blood [address]), [address] [place], [address], 07/01/2024 11:29:24 urinalysi s complete, reflex culture [address]), [address] [place] [address], [id number], 08/12/2024 14:40:57 CBC w/ auto diff 2023 [facility]), [address] [place] [address], [id number], 06/22/2024 19:30:17 CMP, serum or plasma 2023 024 [facility]), [address] [place] [address], [id number], 06/22/2024 19:25:22 TSH, serum, reflex free T4 [email or web address] [place] [address]), [address] [place] [address], [id number], 07/22/2024 10:33:18 lipid panel, serum 2023 024 [facility]), [address] [place] [address], [id number], 06/22/2024 19:25:30 Referral None recorded. Procedures None recorded. Surgeries None recorded. Imaging MAMMO, screening , bilateral [address] ([place]), [address] [place], [address], 10/13/2024 09:03:48 US, breast, bilateral - Please call patient to schedule. [address] ([place]), [address] [place], [address], 12/15/2024 15:44:23 MAMMO, diagnosti c, digital, bilateral [address]), [address] [place], [address], 10/13/2024 09:04:03 US, breast, unilatera l - To be done w/ Dx Mammogram 2023 024 [facility]), [address] [place], [address], 05/25/2024 11:09:23 MAMMO, diagnosti c, digital, unilatera l - Please call pt to schedule for Left side Dx Mammogram 2023 [email or web address] [place] [address]), [address] [place], [address], 06/10/2024 09:18:15 Medication Orders cyclobenz aprine 10 mg tablet 2024 025 [facility], [address] [place] [address], [address], [place], [address], 10/12/2024 12:20:31 triamcino lone acetonide 0.1 % topical cream 2024 025 [facility], [facility] [address], [place], [address], 10/12/2024 12:22:33 allopurin ol 100 mg tablet 2024 025 ELLEN [facility], [address] [facility], [address], [place], [address], 10/12/2024 12:20:29 amitripty line 150 mg tablet 2024 025 ELLEN [facility], [address] [facility], [facility] [address], [place], [address], 10/12/2024 12:20:34 gabapenti n 800 mg tablet 2024 025 ELLEN [facility], [address] [facility], [facility] [address], [place], [address], 10/12/2024 12:20:35 omeprazol e 20 mg capsule,d elayed release 2024 025 ELLEN [facility], [address] [facility], [address], [place], [address], 10/12/2024 12:20:33 Synthroid 75 mcg tablet 2024 025 ELLEN [facility], [address] [facility], [facility] [address], [place], [address], 10/12/2024 12:20:38 meloxicam 7.5 mg tablet 2024 025 ELLEN [facility], [address] [facility], [address], [place], [address], 10/12/2024 12:20:31 cyclobenz aprine 10 mg tablet 2023 024 ELLEN [facility], [address] [facility], [address], [place], [address], 07/08/2024 12:39:54 allopurin ol 100 mg tablet 2023 024 ELLEN [facility], [address] [facility], [address], [place], [address], 07/08/2024 12:39:57 amitripty line 150 mg tablet 2023 024 ELLEN [facility], [address] [facility], [facility] [address], [place], [address], 07/08/2024 12:39:54 Zepbound 2.5 mg/0.5 mL subcutane ous pen injector 2023 024 [email or web address] [facility], [address] [facility], [facility] [address], [place], [address], 10/12/2024 12:37:12 gabapenti n 800 mg tablet 2023 ELLEN [facility], [address] [facility], [facility] [address], [place], [address], 07/08/2024 12:39:55 omeprazol e 20 mg capsule,d elayed release 2023 ELLEN [facility], [address] [facility], [facility] [address], [place], [address], 07/08/2024 12:39:58 Synthroid 75 mcg tablet 2023 024 ELLEN [facility], [address] [facility], [facility] [address], [place], [address], 07/08/2024 12:39:59 meloxicam 7.5 mg tablet 2023 024 ELLEN [facility], [address], [facility] [address], [place], [address], 07/08/2024 12:39:56 cyclobenz aprine 10 mg tablet 2023 ELLEN [facility], [address] [facility], [facility] [address], [place], [address], 06/22/2024 12:44:18 allopurin ol 100 mg tablet 2023 ELLEN [facility], [address] [facility], [address], [place], [address], 06/22/2024 12:44:15 amitripty line 150 mg tablet 2023 ELLEN [facility], [address] [facility], [address], [place], [address], 06/22/2024 12:44:19 meloxicam 7.5 mg tablet 2023 ELLEN [facility], [address], [address], [place], [address], 06/22/2024 12:44:21 gabapenti n 800 mg tablet 2023 ELLEN [facility], [address], [address], [place], [address], 06/22/2024 12:44:17 omeprazol e 20 mg capsule,d elayed release 2023 ELLEN [facility], [address] [facility], [address], [place], [address], 06/22/2024 12:44:15 Synthroid 75 mcg tablet 2023 ELLEN [facility], [address] [facility], [address], [place], [address], 06/22/2024 12:44:12 cyclobenz aprine 10 mg tablet 2023 ELLEN [facility], [address] [facility], [address], [place], [address], 05/11/2024 14:32:02 allopurin ol 100 mg tablet 2023 024 ELLEN [facility], [address] [facility], [address], [place], [address], 05/11/2024 14:31:51 amitripty line 150 mg tablet 2023 024 ELLEN [facility], [address] [facility] [facility], [address], [place], [address], 05/11/2024 14:31:53 Wegovy 0.25 mg/0.5 mL subcutane ous pen injector 2023 024 [id number] [facility], [address], [address], [place], [address], 10/12/2024 12:37:08 gabapenti n 800 mg tablet 2023 024 ELLEN [facility], [address], [address], [place], [address], 05/11/2024 14:31:52 omeprazol e 20 mg capsule,d elayed release 2023 024 ELLEN [facility], [address], [address], [place], [address], 05/11/2024 14:31:53 Synthroid 75 mcg tablet 2023 024 ELLEN [facility], [address], [address], [place], [address], 05/11/2024 14:32:01 meloxicam 7.5 mg tablet 2023 024 ELLEN [facility], [address] [facility], [address], [place], [address], 05/11/2024 14:31:50 cyclobenz aprine 10 mg tablet [id number] ELLEN [facility], [address], [address], [place], [address], 11/10/2023 16:39:02 allopurin ol 100 mg tablet 2023 ELLEN [facility], [address], [address], [place], [address], 11/10/2023 16:39:00 amitripty line 150 mg tablet 2023 ELLEN [facility], [address] [place] [address], [address], 03/12/2024 12:13:56 phentermi ne 15 mg capsule 2023 [email or web address] [facility], [address] [place] [address], [address], 10/12/2024 12:21:04 gabapenti n 800 mg tablet 2023 ELLEN [facility], [address], [address], [place], [address], 11/10/2023 16:39:03 omeprazol e 20 mg capsule,d elayed release 2023 ELLEN [facility], [address] [place] [address], [address], 03/12/2024 12:13:57 Synthroid 75 mcg tablet 2023 024 ELLEN [facility], [address] [place] [address], [id number], 11/17/2023 18:33:53 meloxicam 7.5 mg tablet 2023 ELLEN [facility], [address] [facility], [address], [place], [address], 11/10/2023 16:38:59 Patient TargetsNo targets recorded. Patient Instructions Encounter Date Encounter Id Patient Instructions Last Modified By Organization Details Last Modified Time 11/10/2023 [id number] dementia rating scale-2* Not available 11/10/2023 16:54:34 alcohol misuse* [email or web address] Not available 11/10/2023 17:00:01 depression screening* [email or web address] Not available 11/10/2023 17:00:01 Timed Up and Go test (TUG)* [email or web address] Not available 11/10/2023 17:00:01 multi-dimensiona l health assessment questionnaire* Not available 11/10/2023 16:52:38 Personalized a lt Plan and Screening Recommendations Advance Directives - Do you have one? No Advance Directives - Do we have your advance directive on file in your health record? Primary Prevention/Interven tion (prevents or decreases the chance of common diseases from occurring) Smoking Risk: Non Smoker Alcohol Misuse Screening: Negative Weight: Appropriate Overwei ght continue your current weight loss efforts try to lose 5% of your body weight try to lose 10% of your body weight Physical activity: Need more exercise/physical activity minimum of 10-20 minutes of activity that causes mild breathlessness/day minimum of 20-30 minutes activity that causes mild breathlessness/day Nutrition: Good Average Fall Risk (screened today): High Refer to attached handout Preventing Falls: After your Visit Vaccines Pneumococcal: Ordered Recommended today Recommended today, but you have declined No further needed Influenza: Your next one in the fall of this year Chronic Disease Risks Stroke: Low Risk Intermediate Risk I have no recommendations Act ely diagnosis, Continue current treatment plan Heart Attack: Low risk Intermediate Risk I have no recommendations Act ely diagnosis, Continue current treatment plan Clogging of the Arteries: Low risk Intermediate Risk I have no recommendations Act ely diagnosis, Continue current treatment plan Diabetes: Low Risk I have no recommendations Secondary Prevention/Interven tion (detects treatable diseases before they may cause symptoms, disability, or ) Breast Cancer Screening with mammogram: Cervical/Uterine/Ov noelle Cancer Screening: No screening necessary Osteoporosis Screening: Date Screening Last Performed: 10/17/23 Colon Cancer Screening: Colonoscopy No screening necessary Date Screening Last Performed: Eye Disease Screening: No Eye exam necessary Dementia Risk: Low Intermediate I have no recommendations Depression Screening: Negative Active diagnosis, Continue current treatment plan Not available 11/10/2023 17:01:28 Reason for Referral None Reported. Results Created Date Observation Date Name Description Value Unit Range Abnormal Flag Note LastModifiedBy Organization Detail LastModifiedTime 06/22/2006/22/2024 TEST NOT PERFO RMED test not performed SEE COMMEN T UNABL E TO PERFO RM URINA LYSIS TESTI NG-NO SPECI MEN SENT TO THE LAB Not Available [facility] (Lab) [address] [place], [address], 06/22/2024 19:09:32 06/22/2006/22/2024 COMPR EHENS ELY METAB OLIC PANEL sodium 139 mmol/ L 137-14 5 Not Available [facility] (Lab) [address] [place], [address], 06/22/2024 19:25:22 06/22/2006/22/2024 COMPR EHENS ELY METAB OLIC PANEL potassium 4.7 mmol/ L 3.5-5. [address] [facility] (Lab) [address] [place], [address], 06/22/2024 19:25:22 06/22/20 24 06/22/2024 COMPR EHENS ELY METAB OLIC PANEL chloride 106 mmol/ L 98-107 Not Available [facility] (Lab) [address] [place], [address], 06/22/2024 19:25:22 06/22/20 24 06/22/2024 COMPR EHENS ELY METAB OLIC PANEL carbon dioxide 24 mmol/ L 22-30 Not Available [facility] (Lab) [address] [place], [address], 06/22/2024 19:25:22 06/22/20 24 06/22/2024 COMPR EHENS ELY METAB OLIC PANEL anion gap 13.7 mmol/ L 14-22 low Not Available [facility] (Lab) [address] [place], [address], 06/22/2024 19:25:22 06/22/20 24 06/22/2024 COMPR EHENS ELY METAB OLIC PANEL glucose 93 mg/dL 70-99 Not Available [facility] (Lab) [address] [place], [address], 06/22/2024 19:25:22 06/22/20 24 06/22/2024 COMPR EHENS ELY METAB OLIC PANEL BUN 13 mg/dL 8-19 Not Available [facility] (Lab) [address] [place], [address], 06/22/2024 19:25:22 06/22/20 24 06/22/2024 COMPR EHENS ELY METAB OLIC PANEL creatinine 1.01 mg/dL 0.66-1 .25 Not Available [facility] (Lab) [address] [place], [address], 06/22/2024 19:25:22 06/22/2006/22/2024 COMPR EHENS ELY METAB OLIC PANEL GFR 55 Refer ence Range : [place] ge GFR Healt hy Adult : >60 mL/mi n/1.7 3 m2 Chron ic Kidne y Disea se: 15-60 mL/mi n/1.7 3 m2 Kidne y Failu re: <15/m L/min /1.73 m2 www.n iddk. nih.g ov The MDRD study equat ion has not been valid ated in child yared <18 years of age; pregn ant women ; the elder ly >85 years of age; or in some racia l or ethni c subgr oups, such as Hispa nics. Outsi de the valid ated patricia eters , estim ated GFR is less accur ate, requi ring clini giuliana judgm ent on a case- by-ca se basis . Clini giuliana inter preta tion for other races and ages must be made by the clini rach. The MDRD study equat ion has not been valid ated for the evalu ation of serum creat inine relat ed to nutri kg l statu s or medic ation usage . For perso ns <18 years of age, a pedia tric GFR calcu latxiao is avail able on the [facility] websi te: https ://rosalee desir.o rg/pr ofess ional s/kdo qi/gf r_cal culat or Not Available [facility] (Lab) [address] [place], [address], 06/22/2024 19:25:22 06/22/20 24 06/22/2024 COMPR EHENS ELY METAB OLIC PANEL alkaline phosphatase 130 U/L 38-126 high Not Available [facility] (Lab) [address] [place], [address], 06/22/2024 19:25:22 06/22/20 24 06/22/2024 COMPR EHENS ELY METAB OLIC PANEL alanine aminotransfe rase 31 U/L 0-35 Not Available [facility] (Lab) [address] [place], [address], 06/22/2024 19:25:22 06/22/20 24 06/22/2024 COMPR EHENS ELY METAB OLIC PANEL aspartate aminotransfe rase 35 U/L 15-37 Not Available [facility] (Lab) [address] [place], [address], 06/22/2024 19:25:22 06/22/20 24 06/22/2024 COMPR EHENS ELY METAB OLIC PANEL bilirubin, total 0.50 mg/dL 0.20-1 .30 Not Available [facility] (Lab) [address] [place], [address], 06/22/2024 19:25:22 06/22/20 24 06/22/2024 COMPR EHENS ELY METAB OLIC PANEL calcium 10.1 mg/dL 8.4-10 .2 Not Available [facility] (Lab) [address] [place], [address], 06/22/2024 19:25:22 06/22/2006/22/2024 COMPR EHENS ELY METAB OLIC PANEL total protein 6.7 g/dL 6.3-8. 2 Not Available [facility] (Lab) [address] [place], [address], 06/22/2024 19:25:22 06/22/20 24 06/22/2024 COMPR EHENS ELY METAB OLIC PANEL albumin 4.2 g/dL 3.0-4. 4 Not Available [facility] (Lab) [address] [place], [address], 06/22/2024 19:25:22 06/22/20 24 06/22/2024 COMPR EHENS ELY METAB OLIC PANEL globulin 2.5 g/dL 2.6-4. 2 low Not Available [facility] (Lab) [address] [place], [address], 06/22/2024 19:25:22 06/22/2006/22/2024 COMPR EHENS ELY METAB OLIC PANEL A/G ratio 1.7 ratio 1.0-2. 0 Not Available [facility] (Lab) [address] [place], [address], 06/22/2024 19:25:22 06/22/2006/22/2024 URIC ACID SERUM uric acid 5.1 mg/dL 2.5-6. 2 Not Available [facility] (Lab) [address] [place], [address], 06/22/2024 19:25:26 06/22/20 24 06/22/2024 LIPID PANEL cholesterol 198 mg/dL 140-19 9 NIH ZUHAIR NSUS RECOM MENDA TION FOR ROSALIA STERO L: ADULT CHILD LOW RISK: <200 <170 BORDE RLINE : <200- 239 ----- HIGH RISK: >240 >200 Not Available [facility] (Lab) [address] [place], [address], 06/22/2024 19:25:30 06/22/2006/22/2024 LIPID PANEL triglyceride s 88 mg/dL 0-150 NIH ZUHAIR NSUS REPOR T RECOM MENDA TION FOR TRIGL YCERI APRYL: ADULT CHILD LOW RISK: <150 ----- BODER LINE: 150-1 99 ----- HIGH RISK: >200 ----- Not Available [facility] (Lab) [address] [place], [address], 06/22/2024 19:25:30 06/22/20 24 06/22/2024 LIPID PANEL HDL cholesterol 81 mg/dL 40- Not Available [facility] (Lab) [address] [place], [address], 06/22/2024 19:25:30 06/22/2006/22/2024 LIPID PANEL LDL cholesterol, calculated 99 mg/dL 0-130 NIH ZUHAIR NSUS REPOR T RECOM MENDA TIONS FOR LDL: ADULT CHILD LOW RISK <130 <110 (OPTI MAL LDL) <100 ----- BORDE RLINE : 130-1 59 ----- HIGH RISK: >160 >130 A TRIGL YCERI DE RESUL T >400 INVAL IDATE S THE CALCU LATIO N FOR LDL FRACT IONAT ION - THE LDL RESUL T WILL NOT BE REPOR YVONNE. Not Available [facility] (Lab) [address] [place], [address], 06/22/2024 19:25:30 06/22/2006/22/2024 MAGNE SIUM magnesium 1.6 mg/dL 1.6-2. 3 Not Available [facility] (Lab) [address] [place], [address], 06/22/2024 19:25:32 06/22/2006/22/2024 CBC/C OMPLE TE BLD COUNT W/DIF F white blood cells 5.6 x10'3 /uL 4.2-[address] [facility] (Lab) [address] [place], [address], 06/22/2024 19:30:17 06/22/20 24 06/22/2024 CBC/C OMPLE TE BLD COUNT W/DIF F red blood cells 4.55 x10'6 /uL 3.80-[address] [facility] (Lab) [address] [place], [address], 06/22/2024 19:30:17 06/22/2006/22/2024 CBC/C OMPLE TE BLD COUNT W/DIF F hemoglobin 14.8 g/dL 12.0-1 5.6 Not Available [facility] (Lab) [address] [place], [address], 06/22/2024 19:30:17 06/22/20 24 06/22/2024 CBC/C OMPLE TE BLD COUNT W/DIF F hematocrit 45.9 % 35.7-4 5[address] [facility] (Lab) [address] [place], [address], 06/22/2024 19:30:17 06/22/20 24 06/22/2024 CBC/C OMPLE TE BLD COUNT W/DIF F mean red cell volume 100.9 fL 82.0-9 9.0 high Not Available [facility] (Lab) [address] [place], [address], 06/22/2024 19:30:17 06/22/20 24 06/22/2024 CBC/C OMPLE TE BLD COUNT W/DIF F mean red cell hemoglobin 32.5 pg 27.0-3 3.0 Not Available [facility] (Lab) [address] [place], [address], 06/22/2024 19:30:17 06/22/20 24 06/22/2024 CBC/C OMPLE TE BLD COUNT W/DIF F mean RBC HGB concentratio n 32.2 g/dL 31.0-3 6.0 Not Available [facility] (Lab) [address] [place], [address], 06/22/2024 19:30:17 06/22/20 24 06/22/2024 CBC/C OMPLE TE BLD COUNT W/DIF F red cell distribution width 14.3 % 11.8-1 5.5 Not Available [facility] (Lab) [address] [place], [address], 06/22/2024 19:30:17 06/22/2006/22/2024 CBC/C OMPLE TE BLD COUNT W/DIF F platelets 269 x10'3 /uL 150-40 0 Not Available [facility] (Lab) [address] [place], [address], 06/22/2024 19:30:17 06/22/20 24 06/22/2024 CBC/C OMPLE TE BLD COUNT W/DIF F mean platelet volume 10.1 fL 9.0-12 .4 Not Available [facility] (Lab) [address] [place], [address], 06/22/2024 19:30:17 06/22/2006/22/2024 CBC/C OMPLE TE BLD COUNT W/DIF F neutrophils 58.0 % 39.0-7 2.0 Not Available [facility] (Lab) [address] [place], [address], 06/22/2024 19:30:17 06/22/20 24 06/22/2024 CBC/C OMPLE TE BLD COUNT W/DIF F lymphocytes 27.1 % 16.0-4 7.0 Not Available [facility] (Lab) [address] [place], [address], 06/22/2024 19:30:17 06/22/20 24 06/22/2024 CBC/C OMPLE TE BLD COUNT W/DIF F monocytes 8.2 % 5.0-12 .0 Not Available [facility] (Lab) [address] [place], [address], 06/22/2024 19:30:17 06/22/20 24 06/22/2024 CBC/C OMPLE TE BLD COUNT W/DIF F eosinophils 4.8 % 1.0-7. 0 Not Available [facility] (Lab) [address] [place], [address], 06/22/2024 19:30:17 06/22/2006/22/2024 CBC/C OMPLE TE BLD COUNT W/DIF F basophils 1.4 % 0.0-2. 0 Not Available [facility] (Lab) [address] [place], [address], 06/22/2024 19:30:17 06/22/20 24 06/22/2024 CBC/C OMPLE TE BLD COUNT W/DIF F immature granulocytes 0.5 % 0.00-0 .50 Not Available [facility] (Lab) [address] [place], [address], 06/22/2024 19:30:17 06/22/20 24 06/22/2024 CBC/C OMPLE TE BLD COUNT W/DIF F neutrophils, absolute count 3.24 x10'3 /uL 1.5-8. 0 Not Available [facility] (Lab) [address] [place], [address], 06/22/2024 19:30:17 06/22/20 24 06/22/2024 CBC/C OMPLE TE BLD COUNT W/DIF F lymphocytes, absolute count 1.52 x10'3 /uL 1.07-3 .43 Not Available [facility] (Lab) [address] [place], [address], 06/22/2024 19:30:17 06/22/20 24 06/22/2024 CBC/C OMPLE TE BLD COUNT W/DIF F monocytes, absolute count 0.46 x10'3 /uL 0.29-0 .99 Not Available [facility] (Lab) [address] [place], [address], 06/22/2024 19:30:17 06/22/20 24 06/22/2024 CBC/C OMPLE TE BLD COUNT W/DIF F eosinophils, absolute count 0.27 x10'3 /uL 0.02-0 .53 Not Available [facility] (Lab) [address] [place], [address], 06/22/2024 19:30:17 06/22/20 24 06/22/2024 CBC/C OMPLE TE BLD COUNT W/DIF F basophils, absolute count 0.08 x10'3 /uL 0.01-0 .08 Not Available [facility] (Lab) [address] [place], [address], 06/22/2024 19:30:17 06/22/20 24 06/22/2024 CBC/C OMPLE TE BLD COUNT W/DIF F immature granulocytes ,absolute 0.03 x10'3 /uL 0.00-0 .05 Not Available [facility] (Lab) [address] [place], [address], 06/22/2024 19:30:17 06/22/20 24 06/22/2024 CBC/C OMPLE TE BLD COUNT W/DIF F nucleated red blood cells 0.0 % -0 Not Available [facility] (Lab) [address] [place], [address], 06/22/2024 19:30:17 06/22/20 24 06/22/2024 CBC/C OMPLE TE BLD COUNT W/DIF F NRBC# 0.00 x10'3 /uL Not Available [facility] (Lab) [address] [place], [address], 06/22/2024 19:30:17 06/22/2006/22/2024 VITAM IN D 25-HY DROXY vd25oh 37.5 NG/mL 30-100 Vitam in D Statu s: Defic ient: <20 ng/mL Insuf ficie nt: 20-29 ng/mL Suffi cient : 30-10 0 ng/mL Not Available [facility] (Lab) [address] [place], [address], 06/22/2024 19:39:07 06/22/2006/22/2024 TSH W/REF YANDEL FT4 TSH with reflex free T4 2.690 uIU/m L 0.465- 4.680 Not Available [facility] (Lab) [address] [place], [address], 06/22/2024 19:50:38 06/22/2006/22/2024 VITAM IN B12 (SERGEY KARTHIK ) vb12 771 pg/mL 239-93 1 Not Available [facility] (Lab) [address] [place], [address], 06/22/2024 20:21:50 06/22/20 24 06/22/2024 FOLAT E, SERUM /PLAS MA folate >20.0 NG/mL 2.76-2 0.0 Not Available [facility] (Lab) [address] [place], [address], 06/22/2024 20:21:53 06/22/20 24 06/22/2024 HEMOG LOBIN A1C HA1C 5.0 % 4.0-6. 0 Diabe kate Scree javier Crite morgan: <5.7% Consi stent with absen ce of diabe kate 5.7-6 .4% Consi stent with incre ased risk for diabe kate (pred iabet es) >OR=6 .5% Consi stent with diabe kate REFER ENCE: Diabe kate Care 2016, 39(Vargas ppl.1 ):s13 -s22 [address] [facility] (Lab) [address] [place], [address], 06/22/2024 21:18:36 07/08/20 24 07/08/2024 URINA LYSIS COMPL ETE/I RIS W/RFX color YELLOW Not Available [facility] (Lab) [address] [place], [address], 07/08/2024 18:25:41 07/08/20 24 07/08/2024 URINA LYSIS COMPL ETE/I RIS W/RFX appear EXTRA TURBID abnormal Not Available [facility] (Lab) [address] [place], [address], 07/08/2024 18:25:41 07/08/20 24 07/08/2024 URINA LYSIS COMPL ETE/I RIS W/RFX specific gravity 1.014 1.001- 1.030 Not Available [facility] (Lab) [address] [place], [address], 07/08/2024 18:25:41 07/08/20 24 07/08/2024 URINA LYSIS COMPL ETE/I RIS W/RFX pH 5.5 pH_un its 5.0-9. 0 Not Available [facility] (Lab) [address] [place], [address], 07/08/2024 18:25:41 07/08/20 24 07/08/2024 URINA LYSIS COMPL ETE/I RIS W/RFX leukocytes NEGATI VE elissa/u L negati ve- Not Available [facility] (Lab) [address] [place], [address], 07/08/2024 18:25:41 07/08/20 24 07/08/2024 URINA LYSIS COMPL ETE/I RIS W/RFX nitrite 2+ negati ve- abnormal Not Available [facility] (Lab) [address] [place], [address], 07/08/2024 18:25:41 07/08/20 24 07/08/2024 URINA LYSIS COMPL ETE/I RIS W/RFX protein NEGATI VE mg/dL negati ve- Not Available [facility] (Lab) [address] [place], [address], 07/08/2024 18:25:41 07/08/20 24 07/08/2024 URINA LYSIS COMPL ETE/I RIS W/RFX glucose NORMAL mg/dL normal - Not Available [facility] (Lab) [address] [place], [address], 07/08/2024 18:25:41 07/08/20 24 07/08/2024 URINA LYSIS COMPL ETE/I RIS W/RFX ketones NEGATI VE mg/dL negati ve- Not Available [facility] (Lab) [address] [place], [address], 07/08/2024 18:25:41 07/08/20 24 07/08/2024 URINA LYSIS COMPL ETE/I RIS W/RFX urobilinogen NORMAL mg/dL normal - Not Available [facility] (Lab) [address] [place], [address], 07/08/2024 18:25:41 07/08/20 24 07/08/2024 URINA LYSIS COMPL ETE/I RIS W/RFX bilirubin NEGATI VE mg/dL negati ve- Not Available [facility] (Lab) [address] [place], [address], 07/08/2024 18:25:41 07/08/20 24 07/08/2024 URINA LYSIS COMPL ETE/I RIS W/RFX blood NEGATI VE mg/dL negati ve- Not Available [facility] (Lab) [address] [place], [address], 07/08/2024 18:25:41 07/08/20 24 07/08/2024 URINA LYSIS COMPL ETE/I RIS W/RFX white blood cells 0-8 /i??h pfi?? 0-8 Not Available [facility] (Lab) [address] [place], [address], 07/08/2024 18:25:41 07/08/20 24 07/08/2024 URINA LYSIS COMPL ETE/I RIS W/RFX red blood cells NONE /i??h pfi?? 0-4 Not Available [facility] (Lab) [address] [place], [address], 07/08/2024 18:25:41 07/08/20 24 07/08/2024 URINA LYSIS COMPL ETE/I RIS W/RFX bacteria NONE Not Available [facility] (Lab) [address] [place], [address], 07/08/2024 18:25:41 07/08/20 24 07/08/2024 URINA LYSIS COMPL ETE/I RIS W/RFX mucous OCCASI ONAL /i??l pfi?? abnormal Not Available [facility] (Lab) [address] [place], [address], 07/08/2024 18:25:41 07/08/20 24 07/08/2024 URINA LYSIS COMPL ETE/I RIS W/RFX squamous epithelial NONE /i??l pfi?? Not Available [facility] (Lab) [address] [place], [address], 07/08/2024 18:25:41 07/08/20 24 07/08/2024 URINA LYSIS COMPL ETE/I RIS W/RFX hyaline cast MODERA TE /i??l pfi?? none seen- abnormal Not Available [facility] (Lab) [address] [place], [address], 07/08/2024 18:25:41 07/08/20 24 07/08/2024 URINA LYSIS COMPL ETE/I RIS W/RFX calcium oxalate crystal MANY /i??h pfi?? none seen- abnormal Not Available [facility] (Lab) [address] [place], [address], 07/08/2024 18:25:41 07/08/20 24 07/08/2024 CULTU RE URINE urc ===== ===== ===== ===== ===== ===== ===== ===== ===== ===== ===== ===== ===== ===== ===== ===== ===== ===== ===== ===== ===== ===== ===== ===== Speci men NO.: [id number] Exam Statu s: Final Proce dure: CULTU RE URINE ===== ===== ===== ===== ===== ===== ===== ===== ===== ===== ===== ===== ===== ===== ===== ===== ===== ===== ===== ===== ===== ===== ===== ===== Iso/R esult : 01 Esche pramod a coli Antim icrob ic/Do se KEATON Syste keaton Urine __ ___ ___ Ampic illin >16 R R Aztre onam <=4 S S Cefot axime <=2 Cipro floxa rosendo >2 R R Genta micin >8 [place] [id number] Oxida se React ion N Extra Sensi tive Be NEG Amp/S ulbac coppola >16/8 R R Ceftr iaxon e <=1 S S Cefta zidim e <=1 S S Cefaz torey 4 I I Cefep sterling <=2 S S Cefur oxime 8 S S Levof loxac in >4 R R Merop enem <=1 S S Pip/T azo <=8 S S Trime th/Vargas lfa <=2/3 8 S S Tetra cycli ne <=4 S S Tobra mycin 4 S S Nitro furan toin <=32 S S Not Available [facility] ([facility]) [address] [place], [address], 07/10/2024 09:00:48 10/17/19 24 10/17/2023 MAMMO , scree javire, digit al, bilat eral No observ ation record ed. [address] [place], [address], 11/10/2023 16:30:05 10/20/19 24 10/17/2023 MAMMO , diagn ostic , digit al, unila teral No observ ation record ed. [address]) [address] [place], [address], 11/10/2023 16:30:05 03/25/20 24 03/24/2024 US, doppl er echoc ardio gram No observ ation record ed. [address] [facility] [address], [place], [address], 05/11/2024 14:24:40 05/25/20 24 05/25/2024 [place], [place] unila teral No observ ation record ed. [address]) [address] [place], [address], 06/22/2024 12:34:16 Result Notes None recorded. Problems Name Problem SNOMED Code Status Onset Date Resolution Date Notes Provider Name and Address Organization Details Recorded Time Intermit tent palpitat ions 162340044 Active 2019 Not Available [facility] 3 02:58:25 History of left hip replacem ent 77901488233 49890 Active 2016August 2013 Not Available [facility] 3 02:58:25 Impacted cerumen of bilatera l ears 61392891996 89548 Active 2019 Not Available [facility] 3 02:58:25 Active or passive immuniza tion Active 2021 Not Available [facility] 3 02:58:25 Pain in both feet [id number] 114910 Active 2020 Not Available [facility] 3 02:58:25 Pain of right shoulder joint 05615937201 090160 Active 2020 Not Available [facility] 3 02:58:25 History of hematuri a 598776246 Active 2017 Not Available [facility] 3 02:58:26 Radiothe rapy follow-u p 981143372 Active Not Available [facility] 3 02:58:26 Seen in emergenc y clinic 720260360 Active 2021 Not Available [facility] 3 02:58:26 Transiti on of care 78598382530 05 Active 2021 Not Available [facility] 3 02:58:26 Gouty arthropa thy 650240426 Active 2018 Not Available [facility] 3 02:58:26 Obsessiv e-compul sive disorder 943620956 Active 2017 Not Available [facility] 3 02:58:26 Microsco pic hematuri a 127680800 Completed 201602/05/2018 Not Available [facility] 3 02:58:26 Menopaus al flushing 934554326 Active 2016 Not Available [facility] 3 02:58:26 Localize d, primary osteoart hritis of the pelvic region and thigh 283487129 Active Not Available [facility] 3 02:58:26 Open wound of anterior abdomina l wall 564678155 Active 2019 Not Available [facility] 3 02:58:26 Idiopath ic peripher al neuropat hy 75734781 Active 2021 Not Available [facility] 3 02:58:27 Morbid obesity 657690709 Completed 201805/31/2021 Not Available [facility] 3 02:58:27 Allergic contact dermatit is 470815731 Active 2021 Not Available [facility] 3 02:58:27 Lumbar spondylo sis 606755033 Active 2020 Not Available [facility] 3 02:58:27 Gastro-e sophagea l reflux disease with esophagi tis 381590996 Active 2020 Not Available [facility] 3 02:58:27 Anemia 595206292 Active 2017 Not Available [facility] 3 02:58:27 Anemia 300407811 Completed 201610/30/2017 Not Available [facility] 3 02:58:27 Alkaline phosphat ase above referenc e range 883627290 Active 2019 Not Available [facility] 3 02:58:27 Chronic low back pain 104590470 Active 2016 Not Available [facility] 3 02:58:27 Pruritic disorder 697103063 Active 2017 Not Available [facility] 3 02:58:27 Pain of left hip joint 20340996713 9100 Active 2019 Not Available [facility] 3 02:58:28 Depressi ve disorder 08999824 Active 2016 Not Available [facility] 3 02:58:28 Polyarth ropathy 30320914 Active 2016 Not Available [facility] 3 02:58:28 Elevated blood-pr essure reading without diagnosi s of hyperten violetta 169464730 Completed 201701/26/2019 Not Available [facility] 3 02:58:28 Chronic pain syndrome 964535631 Active 2018 Not Available [facility] 3 02:58:28 Hyperten sive disorder 75998494 Active 2018 Not Available [facility] 3 02:58:28 Hyperten sive disorder 27939498 Completed 201708/03/2018 Not Available [facility] 3 02:58:28 Memory impairme nt 791743422 Active 2020 Not Available [facility] 3 02:58:28 Osteoart hritis 769656974 Active 2016 Not Available [facility] 3 02:58:29 Hypothyr oidism 29262706 Active 2021 Not Available [facility] 3 02:58:29 Obesity 479864352 Active 2017 Not Available [facility] 3 02:58:29 Chronic kidney disease stage 3 968173243 Active 2020 Not Available [facility] 3 02:58:29 Skin ulcer 42086299 Active 2018 Not Available [facility] 3 02:58:29 Anxiety 10238213 Active 2017 Not Available [facility] 3 02:58:29 Hyperlip idemia 76348001 Active 2018 Not Available [facility] 3 02:58:29 History of spinal fusion 30591029254 107 Active 2016 L4&L5 Not Available [facility] 3 02:58:29 History of bariatri c surgical procedur e 485763466 Active 2016 1979 and a revision in 2011 Not Available [facility] 3 02:58:29 Vitamin B12 deficien cy (non anemic) 77020872 Active 2017 Not Available [facility] 3 02:58:30 Liver enzymes level above referenc e range 807106148 Active 2016 Not Available [facility] 3 02:58:30 Palpitat ions 72331368 Active 2018 Not Available [facility] 3 02:58:30 Gynecolo gic examinat ion Active 2021 Not Available [facility] 3 02:58:30 Fatigue 35956524 Active 2017 Not Available [facility] 3 02:58:30 Gastroes ophageal reflux disease without esophagi tis 710926220 Active 2022 Adis Lloyd MD [address], [address], [place], [address] , [facility] 3 14:27:31 Urinary tract infectio us disease 08510109 Active 2022 Adis Lloyd MD [address], [address], [place], [address] , [facility] 3 12:01:06 Mammogra phy abnormal 108308402 Active 2023 Adis Lloyd MD [address], [address], [place], [address] , [facility] 4 14:52:38 Postmeno pausal osteopor osis 095627939 Active 2023 Adis Lloyd MD [address], [address], [place], [address] , [facility] 4 10:29:18 Bilatera l earache 416929994 Active 2024 Adis Lloyd MD [address], [address], [place], [address] , [facility] 5 10:22:53 Problem Notes None recorded. Procedures Surgical History Date Name Laterality Status Provider Name and Address Organization Details Recorded Time 10/12/19 25 Ear Irrigation completed Adis Lloyd MD [address], [address], [place], [address], [facility] 10/12/2024 12:16:47 11/10/19 24 Medicare Wellness CPT Code, subsequent completed November [facility] 11/10/2023 14:15:46 05/26/20 20 Most Recent Bone Density completed Not Available [facility] 10/30/2022 02:51:41 05/26/20 20 Most Recent Mammogram completed Not Available [facility] 10/30/2022 02:51:41 10/29/19 18 Date of Last Pap Smear completed Not Available [facility] 10/30/2022 02:51:41 Spinal Fusion completed Not Available [facility] 10/30/2022 02:51:44 total replacement of left hip joint completed Not Available [facility] 10/30/2022 02:51:44 bariatric operative procedure completed Not Available [facility] 10/30/2022 02:51:44 Total hip arthroplasty completed Not Available [facility] 10/30/2022 02:51:44 cholecystectomy completed Not Available [facility] 10/30/2022 02:51:44 Imaging Results Imaging Date Name Status LastModified by Organization Details LastModified Time 10/17/2023 MAMMO, screening, digital, bilateral completed [address] [place], [address], 11/10/2023 16:30:05 10/17/2023 MAMMO, diagnostic, digital, unilateral completed [address]) [address] [place] [address], [address], 11/10/2023 16:30:05 03/24/2024 US, doppler echocardiogram completed [address] [facility] [address] , [place], [address], 05/11/2024 14:24:40 05/25/2024 US, breast, unilateral completed [address]) [address] [place] [address], [address], 06/22/2024 12:34:16 Procedure Notes None recorded. Medical Equipment None Reported. Allergies Allergen ID Allergen Name Allergen Category Reaction Reaction Severity Criticality Documentation Date Start Date Code Code System Note Provider Name and Address Organization Details Recorded Time 5254 tramadol medicatio n confusion tachycard ia moderate severe Not available 10/30/2022 22758 RxNorm Not Available [facility] 3 03:08:32 5253 morphine medicatio n itching severe Not available 10/30/2022 7052 RxNorm Not Available [facility] 3 03:08:32 5254 levothyro xine sodium medicatio n vomiting moderate Not available 10/30/2022 29517 RxNorm Adis Lloyd MD [address] [facility], [address], [place], [address] , [facility] 4 11:43:52 5255 black cohosh extract medicatio n itching severe Not available 10/30/2022 52327 5 RxNorm Not Available [facility] 3 03:08:33 Medications Name Sig Start Date Stop Date Status Note LastModified by Organization Details LastModified Time cyclobenz aprine 10 mg tablet Take 1 tablet every 12 hours by oral route as needed for 90 days. 2024 active Not Available Not Available Not Avai lable amoxicill in 500 mg capsule TAKE 1 CAPSULE BY MOUTH THREE TIMES A DAY UNTIL GONE 07/08 completed Not Available Not Available Not Available cefazolin 1 gram solution for injection Take 1 g every day by injectio n route for 1 day. 11/[address] [facility] Not Available Not Available Not Available buspirone 5 mg tablet TK 1 T PO TID WC active Not Available Not Available No t Available clonidine HCl 0.1 mg tablet Take 1 tablet twice a day by oral route as needed for 30 days. 10/29 completed Not Available Not Available Not Available carvedilo l 6.25 mg tablet TAKE 1 TABLET BY MOUTH TWICE A DAY active Not Available Not Available No t Available venlafaxi ne ER 75 mg capsule,e xtended release 24 hr TK 1 C PO QD IN THE MORNING FOR 7 DAYS active Not Available Not Available No t Available doxycycli ne hyclate 100 mg capsule TAKE 1 CAPSULE BY MOUTH TWO TIMES A DAY UNTIL GONE 08/08 completed Not Available Not Available Not Available clindamyc in HCl 300 mg capsule Take 1 capsule every 8 hours by oral route for 14 days. active Take yogurt and Probioti ds daily for next 3 weeks. Not Available Not Available Not Available amitripty line 150 mg tablet TAKE 1 TABLET BY MOUTH DAILY AT BEDTIME 2024 active Not Available Not Available Not Avai lable tizanidin e 4 mg tablet Take 1 tablet every day by oral route at bedtime for 90 days. 08/08 completed Not Available Not Available Not Available fluconazo le 150 mg tablet Take 1 tablet as needed by oral route as directed for 1 day. active Not Available Not Available No t Available cephalexi n 250 mg capsule 09/29 completed Not Available Not Available Not Available hydrocodo ne 5 mg-acetam inophen 325 mg tablet TAKE 1 TABLET BY MOUTH FOUR TIMES A DAY NEEDED FOR PAIN 07/08 completed Not Available Not Available Not Available sucralfat e 100 mg/mL oral suspensio n active Not Available Not Available Not Available naltrexon e 50 mg tablet 11/19 completed Not Available Not Available Not Available phenazopy ridine 200 mg tablet TK 1 T PO Q 8 HOURS FOR 2 DAYS 12/02 completed Not Available Not Available Not Available sertralin e 100 mg tablet TK 1 T PO QD IN THE MORNING 05/31 completed Not Available Not Available Not Available lidocaine 4 % topical cream APPLY A THIN LAYER TO AFFECTED AREAS TOPICALL Y 2-3 TIMES PER DAY NEEDED. 05/17 completed Not Available Not Available Not Available Debrox 6.5 % ear drops INSTILL 4 DROPS IN AFFECTED EAR BID active Not Available Not Available No t Available phentermi ne 15 mg capsule TAKE 1 CAPSULE BY MOUTH ONCE DAILY BEFORE BREAKFAS T FOR 30 DAYS 10/12 completed Not Available Not Available Not Available venlafaxi ne ER 150 mg capsule,e xtended release 24 hr TK 1 C PO QD IN THE MORNING 05/17 completed Not Available Not Available Not Available hydroxyzi ne pamoate 50 mg capsule Take 1 cap po q8hrs prn for severe itching, as needed only. active Not Available Not Available No t Available oxycodone 5 mg/5 mL oral solution 08/14 completed Not Available Not Available Not Available metronida zole 500 mg tablet active Not Available Not Available No t Available hydroxyzi ne HCl 50 mg tablet TAKE 1 TABLET BY MOUTH FOUR TIMES A DAY active Not Available Not Available No t Available phentermi ne 37.5 mg tablet TAKE 1 TABLET BY MOUTH ONCE DAILY IN THE MORNING FOR 30 DAYS 08/14 completed Not Available Not Available Not Available acetamino phen 300 mg-codein e 30 mg tablet TAKE 1 TABLET BY MOUTH EVERY 6 HOURS NEEDED 06/20 completed Not Available Not Available Not Available allopurin ol 100 mg tablet TAKE 1 TABLET BY MOUTH DAILY 2024 active Not Available Not Available Not Avai lable ciproflox acin 500 mg tablet Take 1 tablet every 12 hours by oral route for 5 days. 10/12 completed Not Available Not Available Not Available sulfameth oxazole 800 mg-trimet hoprim 160 mg tablet TK 1 T PO Q 12 HOURS 08/08 completed Not Available Not Available Not Available tramadol 50 mg tablet Take 1 tablet every 8 hours by oral route as needed for 30 days. active Not Available Not Available No t Available quetiapin e 100 mg tablet TAKE 1 AND 1/2 TABLETS BY MOUTH DAILY AT BEDTIME active Not Available Not Available No t Available amitripty line 50 mg tablet TAKE 3 TABLETS BY MOUTH ONCE DAILY AT BEDTIME 07/20 completed Not Available Not Available Not Available triamcino lone acetonide 0.1 % topical cream APPLY EXTERNAL LY TO THE AFFECTED AREA TWICE DAILY DIRECTED 2024 active Not Available Not Available Not Avai lable phentermi ne 30 mg capsule TAKE 1 CAPSULE BY MOUTH ONCE DAILY IN THE MORNING 04/29 completed Not Available Not Available Not Available butalbita l-acetami nophen-ca ffeine 50 mg-325 mg-40 mg tablet active Not Available Not Available Not Available ondansetr on 8 mg disintegr ating tablet 08/08 completed Not Available Not Available Not Available levothyro xine 25 mcg tablet Take 1 tablet every other day by oral route as directed for 90 days. 09/03 completed Not Available Not Available Not Available baclofen 20 mg tablet Take 1 tablet every 12 hours by oral route as needed for 90 days. active Not Available Not Available No t Available cyprohept adine 4 mg tablet Take 1 tablet every 8 hours by oral route as needed for 30 days. 12/02 completed Internal note: TOO EXPENSIV [employer] [facility] note: Take as per Hemat's recommen dations. Not Available Not Available Not Available Bactroban 2 % topical cream APPLY A SMALL AMOUNT TO THE AFFECTED AREA BY TOPICAL ROUTE 2 TIMES PER DAY FOR 10 DAYS 12/11 completed Not Available Not Available Not Available meloxicam 7.5 mg tablet Take 1 tablet every 12 hours by oral route as needed for 90 days. 2024 active Not Available Not Available Not Avai lable [place] Thyroid 15 mg tablet Take 1 tablet every day by oral route as directed for 90 days. 04/29 completed Not Available Not Available Not Available DOK 100 mg capsule TK 1 C PO BID 12/21 completed Not Available Not Available Not Available gabapenti n 800 mg tablet TAKE 1 TABLET BY MOUTH EVERY 8 HOURS DIRECTED 2024 active Not Available Not Available Not Avai lable levothyro xine 50 mcg tablet Take 1 tablet every other day by oral route as directed for 90 days. 09/03 completed Not Available Not Available Not Available hydrocodo ne 7.5 mg-acetam inophen 325 mg tablet 08/08 completed Not Available Not Available Not Available cephalexi n 500 mg capsule TK ONE C PO Q 8 H 12/02 completed Not Available Not Available Not Available pantopraz ole 40 mg tablet,de layed release 05/17 completed Not Available Not Available Not Available cyanocoba karthik (vit B-12) 1,000 mcg/mL injection solution Inject 1 mL every month by intramus cular route as directed for 90 days. 02/22 completed Not Available Not Available Not Available ferrous sulfate 325 mg (65 mg iron) tablet Take 1 tablet twice a day by oral route with meals for 90 days. 05/17 completed Not Available Not Available Not Available buspirone 10 mg tablet TAKE 1 TABLET BY MOUTH THREE TIMES DAILY active Not Available Not Available No t Available lisinopri l 10 mg tablet Take 1.5 tablets every day by oral route for 90 days. 10/19 completed Not Available Not Available Not Available lidocaine 5 % topical patch APPLY 1 PATCH TOPICALL Y TO THE SKIN DAILY. WAY WEAR UP TO 12 HOURS active Not Available Not Available No t Available Synthroid 75 mcg tablet Take 1 tablet every day by oral route in the morning for 90 days. 2024 active Not Available Not Available Not Avai lable sertralin e 25 mg tablet TK 1 T PO QD IN THE MORNING active Not Available Not Available No t Available omeprazol e 20 mg capsule,d elayed release Take 1 capsule every day by oral route in the morning for 90 days. 2024 active Not Available Not Available Not Avai lable hydroxyzi ne HCl 25 mg tablet Take 1 tablet every 8 hours by oral route as needed for 30 days. 01/28 completed Not Available Not Available Not Available morphine ER 15 mg tablet,ex tended release Take 1 tablet every day by oral route as needed for 15 days. active Not Available Not Available No t Available lisinopri l 5 mg tablet Take 1 tablet every day by oral route as directed for 90 days. 02/14 completed Not Available Not Available Not Available mupirocin 2 % topical ointment Apply to each nostril 2 (two) times a day Apply to bilatera l nares twice daily starting 5 days prior to surgery active Not Available Not Available No t Available diazepam 10 mg tablet 11/19 completed Not Available Not Available Not Available ibuprofen 600 mg tablet 09/29 completed Not Available Not Available Not Available oxycodone -acetamin ophen 7.5 mg-325 mg tablet 01/28 completed Not Available Not Available Not Available methylpre dnisolone 4 mg tablets in a dose pack TAKE TABLETS DIRECTED ON INSIDE OF THIS PACKAGE 07/08 completed Not Available Not Available Not Available albuterol sulfate HFA 90 mcg/actua tion aerosol inhaler 01/23 completed Not Available Not Available Not Available clobetaso l 0.05 % scalp solution 12/02 completed Not Available Not Available Not Available ondansetr on 4 mg disintegr ating tablet 08/14 completed Not Available Not Available Not Available sertralin e 50 mg tablet TK 1 T PO QD IN THE MORNING 05/31 completed Not Available Not Available Not Available amitripty line 100 mg tablet TAKE ONE TABLET BY MOUTH AT BEDTIME 01/28 completed Not Available Not Available Not Available naproxen 500 mg tablet Take 1 tablet every 12 hours by oral route as needed for 30 days. 05/17 completed With food, prn. Not Available Not Available Not Available diazepam 5 mg tablet TAKE 1 TABLET BY MOUTH EVERY 24 HOURS NEEDED ONLY active Not Available Not Available No t Available amoxicill in 875 mg-potass ium clavulana te 125 mg tablet 08/14 completed Not Available Not Available Not Available oxycodone 5 mg tablet 07/08 completed Not Available Not Available Not Available neomycin- polymyxin -hydrocor t 3.5 mg-10,000 unit/mL-1 % ear drops,nati p INSTILL 4 DROPS INTO AFFECTED EAR(S) BY OTIC ROUTE 3 TIMES PER DAY 2024 active Not Available Not Available Not Avai lable enoxapari n 40 mg/0.4 mL subcutane ous syringe 05/31 completed Not Available Not Available Not Available azithromy rosendo 500 mg tablet 11/21 completed Not Available Not Available Not Available atomoxeti ne 25 mg capsule 11/19 completed Not Available Not Available Not Available atomoxeti ne 40 mg capsule 11/19 completed Not Available Not Available Not Available atomoxeti ne 60 mg capsule TAKE 1 CAPSULE BY MOUTH DAILY IN [facility] 07/08 completed Not Available Not Available Not Available Premarin 0.625 mg/gram vaginal cream Insert 1 applicat orful twice a week by vaginal route. 10/19 completed Not Available Not Available Not Available vitamin [id number]-[id number] acid injection solution Take by injectio n route. 06/25 completed once a month Not Available Not Available Not Available bupropion HCl XL 300 mg 24 hr tablet, extended release TAKE 1 TABLET BY MOUTH DAILY IN [facility] active Not Available Not Available No t Available bupropion HCl XL 150 mg 24 hr tablet, extended release TAKE 1 TABLET BY MOUTH DAILY IN THE MORNING ALONG WITH THE 300MG active Not Available Not Available No t Available topiramat e 50 mg tablet Take 1 tablet every 12 hours by oral route as directed for 30 days. active Take half tab po bid for next 7-10 days; Than increase to full tab. Not Available Not Available Not Available nitrofura ntoin monohydra te/macroc rystals 100 mg capsule Take 1 capsule every 12 hours by oral route as directed for 7 days. 10/12 completed Not Available Not Available Not Available nitazoxan kip 500 mg tablet Take 1 tablet every 12 hours by oral route. 11/19 completed Not Available Not Available Not Available duloxetin e 30 mg capsule,d elayed release TK 1 C PO QD IN THE MORNING FOR 7 DAYS 11/19 completed Not Available Not Available Not Available duloxetin e 60 mg capsule,d elayed release TK 1 C PO QD IN THE MORNING 11/19 completed Not Available Not Available Not Available Lactobaci llus acidophil us 1 billion cell tablet Take 1 tablet twice a day by oral route for 15 days. 07/20 completed Not Available Not Available Not Available tizanidin e 07/09 completed 4mg every 6hrs Not Available Not Available Not Available baclofen 06/18 completed twice a day; morning and night Not Available Not Available Not Available Vitamin D 01/18 completed 1000 units once a day Not Available Not Available Not Available Tylenol 06/25 completed 500mg; everyday Not Available Not Available Not Available calcium citrate 01/18 completed 200mg once a day Not Available Not Available Not Available gabapenti n 06/25 completed 900 mg; 4x day Not Available Not Available Not Available hydrocodo ne 5 mg-acetam inophen 300 mg tablet TAKE 1 TABLET BY MOUTH EVERY 6 HOURS NEEDED FOR PAIN 04/29 completed Not Available Not Available Not Available atomoxeti ne 80 mg capsule 10/12 completed increase d to 100 mg daily Not Available Not Available Not Available atomoxeti ne 100 mg capsule Take 1 capsule every day by oral route. 2024 active Not Available Not Available Not Avai lable quetiapin e 50 mg tablet TAKE 1 TABLET BY MOUTH EVERY DAY AT BEDTIME 08/14 completed Not Available Not Available Not Available Volumen 09/23 completed 10mg; 4x day along with gabapent in Not Available Not Available Not Available venlafaxi ne ER 225 mg tablet,ex tended release 24 hr Take 1 tab po daily as directed . 02/05 completed Not Available Not Available Not Available venlafaxi ne ER 150 mg tablet,ex tended release 24 hr Take 1 tab po QAM. 12/11 completed Not Available Not Available Not Available Xarelto 10 mg tablet 01/08 completed Not Available Not Available Not Available Deplin (algal oil) 7.5 mg-90.314 mg capsule Take 1 capsule every day by oral route as directed for 30 days. active Not Available Not Available No t Available Deplin (algal oil) 15 mg-90.314 mg capsule Take 1 capsule every day by oral route as directed for 30 days. active Not Available Not Available No t Available Saxenda 3 mg/0.5 mL (18 mg/3 mL) subcutane ous pen injector Inject 0.6 mg every day by subcutan eous route as directed for 30 days. active Not Available Not Available No t Available azelas-fl uticasone -NaCl-NaH CO3 10/30 completed as needed Not Available Not Available Not Available Wegovy 0.25 mg/0.5 mL subcutane ous pen injector Inject 0.25 mg every week by subcutan eous route as directed for 30 days. 10/12 completed Not Available Not Available Not Available Zepbound 2.5 mg/0.5 mL subcutane ous pen injector Inject 2.5 mg every week by subcutan eous route as directed for 30 days. 10/12 completed Not Available Not Available Not Available Vitals Date Recorded Body height Body mass index (BMI) Body weight Body temperature Heart rate Respiratory rate Oxygen saturation Oxygen saturation in Arterial blood by Pulse oximetry Systolic blood pressure Diastolic blood pressure Provider Name and Address Organization Details Last Updated DateTime 4 168.91 cm 39.4 kg/m2 746294. 26 g 98.2 [degF] 88 /min 20 /min 98 % 98 % 134 mm[Hg] 80 mm[Hg] Iban Mao [facility] [employer] 4 16:13:31 Date Recorded Pain severity - 0-10 verbal numeric rating [Score] - Reported Provider Name and Address Organization Details Last Updated DateTime 11/10/202304 December SHARI La [facility] [employer] 11/10/2023 16:46:57 Date Recorded Body height Body mass index (BMI) Body weight Body temperature Respiratory rate Heart rate Oxygen saturation Oxygen saturation in Arterial blood by Pulse oximetry Systolic blood pressure Diastolic blood pressure Provider Name and Address Organization Details Last Updated DateTime 4 168.91 cm 40.2 kg/m2 469103. 22 g 98.6 [degF] 20 /min 96 /min 98 % 98 % 136 mm[Hg] 76 mm[Hg] Iban Mao [facility] [employer] 4 14:20:26 Date Recorded Body height Body mass index (BMI) Body weight Body temperature Heart rate Respiratory rate Oxygen saturation Oxygen saturation in Arterial blood by Pulse oximetry Systolic blood pressure Diastolic blood pressure Provider Name and Address Organization Details Last Updated DateTime 4 168.91 cm 40.1 kg/m2 147886. 64 g 98.4 [degF] 78 /min 20 /min 98 % 98 % 134 mm[Hg] 70 mm[Hg] Iban [facility] [employer] 4 12:29:58 Date Recorded Body height Body mass index (BMI) Body weight Body temperature Heart rate Systolic blood pressure Diastolic blood pressure Provider Name and Address Organization Details Last Updated DateTime 4 168.91 cm 40.9 kg/m2 106610. 04 g 97.3 [degF] 92 /min 124 mm[Hg] 86 mm[Hg] Allie Ferreira RN [facility] [employer] 4 12:27:29 Date Recorded Oxygen saturation Oxygen saturation in Arterial blood by Pulse oximetry Provider Name and Address Organization Details Last Updated DateTime 07/08/2024 96 % 96 % Adis Lloyd MD [address] [place] [address], [id number], [facility] [employer] [facility] 07/08/2024 12:33:42 Date Recorded Body height Body mass index (BMI) Body weight Body temperature Oxygen saturation Oxygen saturation in Arterial blood by Pulse oximetry Heart rate Systolic blood pressure Diastolic blood pressure Provider Name and Address Organization Details Last Updated DateTime 5 168.91 cm 42.5 kg/m2 239126. 21 g 97.6 [degF] 95 % 95 % 90 /min 128 mm[Hg] 92 mm[Hg] Kasey Flores RN [facility] [employer] 5 12:09:50 Social History Question Answer Notes LastModified by Organization Details LastModified Time Tobacco Smoking Status Never Smoker Daniela Velasquez null, [place] [facility] 09/03/2023 11:42:04 Do You Have An Advance Directive? No Patient Declined Informatio n. [id number] Information not available 10/30/2022 What Is Your Level Of Alcohol Consumption? Occasional [id number] Information not available 10/30/2022 Do You Wear A Helmet When Biking? No [email or web address] Information not available 09/03/2023 What Is Your Level Of Caffeine Consumption? Occasional [id number] Information not available 10/30/2022 In The 14 Days Before Symptom Onset, Have You Had Close Contact With A Laboratory-conf irmed COVID-19 While That Case Was Ill? No [email or web address] Information not available 09/03/2023 In The 14 Days Before Symptom Onset, Have You Had Close Contact With A Person Who Is Under Investigation For COVID-19 While That Person Was Ill? No [email or web address] Information not available 09/03/2023 What Type Of Diet Are You Following? REGULAR [id number] Information not available 10/30/2022 Which Illicit Or Recreational Drugs Have You Used? No [email or web address] Information not available 09/03/2023 Do You Or Have You Ever Used E-cigarettes Or Vape? Never Used Electronic Cigarettes [email or web address] Information not available 09/03/2023 What Is The Highest Grade Or Level Of School You Have Completed Or The Highest Degree You Have Received? CC61151-0 [email or web address] Information not available 09/03/2023 Have There Been Any Changes To Your Family Or Social Situation? No [email or web address] Information not available 09/03/2023 What Is The Fluoride Status Of Your Home? Unknown [email or web address] Information not available 09/03/2023 Are There Any Guns Present In Your Home? No [email or web address] Information not available 09/03/2023 Do You Use Insect Repellent Routinely? Yes [email or web address] Information not available 09/03/2023 Where Do You Live? SingleLevelHouse Information not available 09/03/2023 Advance Directive- Providers Has Reviewed Directive And Consents To Follow Them (insert Provider Name With Any Objectives In Notes Field) No [id number] Information not available 10/30/2022 Do You Have A Medical Power Of Drain Tiler? No [email or web address] Information not available 09/03/2023 What Was The Date Of Your Most Recent Tobacco Screening? 11/10/2023 Information not available 11/10/2023 Do You Have Any Pets? No [email or web address] Information not available 09/03/2023 What Is Your Relationship Status? [id number] Information not available 10/30/2022 Do You Use Your Seat Belt Or Car Seat Routinely? Yes [email or web address] Information not available 09/03/2023 Do You Have Smoke And Carbon Monoxide Detectors In Your Home? Yes [email or web address] Information not available 09/03/2023 Are You Passively Exposed To Smoke? No [email or web address] Information not available 09/03/2023 Do You Or Have You Ever Used Smokeless Tobacco? Never Used Smokeless Tobacco [id number] Information not available 10/30/2022 Are There Any Smokers In Your House? No Information not available 09/03/2023 Do You Participate In Social Media? Yes [email or web address] Information not available 09/03/2023 Do You Feel Stressed (tense, Restless, Nervous, Or Anxious, Or Unable To Sleep At Night)? [id number] Information not available 09/03/2023 Do You Use Any Illicit Or Recreational Drugs? No [email or web address] Information not available 09/03/2023 Do You Use Sunscreen Routinely? Yes [email or web address] Information not available 09/03/2023 Has Tobacco Cessation Counseling Been Provided? No [email or web address] Information not available 09/03/2023 Have You Recently Traveled Abroad? No [email or web address] Information not available 09/03/2023 Are You Currently In School? No [email or web address] Information not available 09/03/2023 Do You Have Any Dietary Restrictions? No [email or web address] Information not available 09/03/2023 Do You Or Have You Ever Used Any Other Forms Of Tobacco Or Nicotine? No [email or web address] Information not available 09/03/2023 Sex: Female Functional Status Question Answer Note LastModified by Organizat ion Details LastModified Time What is your exercise level? None [id number] Information not available 10/30/2022 Mental Status None recorded. Family History Relationship Description Onset Age of this Age Resolved Age Notes LastModified by Organization Details LastModified Time Father Malignant tumor of esophagus [email or web address] Not available 2023 11:43:58 Paternal Grandfather Malignant tumor of esophagus [email or web address] Not available 2023 11:43:58 Brother Diabetes mellitus xs3 [id number] Not available 10/30/2022 02:51:47 Sister Diabetes mellitus [id number] Not available 10/30/2022 02:51:47 Mother Congestive heart failure [email or web address] Not available 2023 11:43:58 Mother Hypertensive disorder Not available 2023 11:43:58 Mother Heart disease [email or web address] Not available 2023 11:43:58 Sister Disorder of thyroid gland 3 sister s [email or web address] Not available 01/23/2023 10:05:42 Sister Disorder of thyroid gland Not available 2023 11:43:58 Brother Disorder of thyroid gland [email or web address] Not available 2023 11:43:58 Medical History Condition Response ARTHRITIS Y GI PROBLEMS Y CHEMOTHERAPY / RADIATION N HEARTBURN / REFLUX Y HYPERTENSION Y POLYCYSTIC OVARIES Y CANCER: SPECIFY Y ANXIETY DISORDER Y OBESITY Y EDEMA Y SURGERY Y GERD/NAUSEA Y EXCESSIVE PERSPIRATION Y ANEMIA/BLOOD DISORDER Y OSTEOPOROSIS Y GOUT Y SLEEP DISORDER Y FEMALE PROBLEMS / INFECTIONS DEPRESSION (INCLUDING POST ) Y Gynecological History Statement/Question Response Date of Last Mammogram 01/15/2021 Date of Last Colonoscopy Most Recent Bone Density 05/26/2020 Date of LMP Date of Last Pap Smear 10/29/2017 Current Control Method Menopause Most Recent Mammogram 05/26/2020 Breast Problems no Obstetrics History GPAL:G 1 P 1 0 0 1 Type Value Full Term 1 Living 1 Total 1 Immunizations Vaccine Type Date Status Note Provider Nam e and Address Organization Details Recorded Time COVID-19 PS Non-US Vaccine (EpiVacCorona) 1 completed Not Available [facility] 10/30/2022 03:08:20 COVID-19 PS Non-US Vaccine (EpiVacCorona) 1 completed Not Available [facility] 10/30/2022 03:08:20 Hep A, adult 1 completed Not Available [facility] 10/30/2022 03:08:20 Influenza, split virus, quadrivalent, PF 0 completed Not Available [facility] 10/30/2022 03:08:20 Influenza, split virus, quadrivalent, PF 9 completed Not Available [facility] 10/30/2022 03:08:20 pneumococcal polysaccharide PPV23 9 completed Not Available [facility] 10/30/2022 03:08:20 Hep B, adult 8 completed Not Available [facility] 10/30/2022 03:08:21 Influenza, split virus, quadrivalent, PF 8 completed Not Available [facility] 10/30/2022 03:08:21 Hep B, adult 8 completed Not Available [facility] 10/30/2022 03:08:21 Hep B, adult 7 completed Not Available [facility] 10/30/2022 03:08:21 Influenza, split virus, quadrivalent, PF 2 completed Not Available [facility] 10/30/2022 03:08:21 Hep A, adult 1 completed Not Available [facility] 10/30/2022 03:08:21 Influenza, split virus, quadrivalent, PF 1 completed Not Available [facility] 10/30/2022 03:08:21 Influenza, split virus, quadrivalent, PF 7 completed Not Available [facility] 10/30/2022 03:08:21 Influenza, split virus, trivalent, PF 4 completed Iban jaimes [place] [facility] 06/22/2024 16:32:04 Tdap 4 completed Iban Mao null [facility] 06/22/2024 16:32:04 Past Encounters Encounter ID Performer Location Encounter Start Date Encounter Closed Date Diagnosis/Indication Diagnosis SNOMED-CT Code Diagnosis ICD10 Code Diagnosis Note [id number] [facility] [address] [place] [address] 11/22/2020 00:00:00 11/22/2020 12:00:37 [id number] _ATHENA_M IGRATION_ DEFAULT_1 _1 , 12/21/2020 00:00:00 12/21/2020 18:01:50 [id number] [facility] [address] [place] [address] 12/21/2020 00:00:00 12/21/2020 12:30:10 [id number] [facility] [address] [place] [address] 01/18/2021 00:00:00 01/18/2021 12:36:21 [id number] [facility] [address] [place] [address] 02/15/2021 00:00:00 02/15/2021 12:29:14 [id number] [facility] [address] [place] [address] 05/31/2021 00:00:00 05/31/2021 15:04:58 [id number] [facility] [address] [place] [address] 06/18/2021 00:00:00 06/18/2021 13:19:28 [id number] [facility] [address] [place] [address] 08/14/2021 00:00:00 08/14/2021 14:50:27 [id number] [facility] [address] [place] [address] 10/10/2021 00:00:00 10/10/2021 11:52:49 [id number] [facility] [address] [place] [address] 11/21/2021 00:00:00 11/21/2021 11:15:22 [id number] [facility] [address] [place] [address] 01/22/2022 00:00:00 01/22/2022 10:42:12 [id number] [facility] [address] [place] [address] 03/27/2022 00:00:00 03/27/2022 15:36:[id number] [address] 05/08/2022 00:00:00 05/08/2022 18:10:[id number] [address] 08/08/2022 00:00:00 08/08/2022 12:22:40 [id number] Adis Lloyd MD [address] [address] 11/19/2022 14:03:23 11/19/2022 14:42:13 Hypothyroidism 36770228 E03.9 Chronic low back pain 27 3408281 M54.50 Chronic pain syndrome 37 6338784 G89.4 Gouty arthropathy 791758 008 M10.09 Hypertensive disorder 38 777021 I10 Lumbar spondylosis 51380 0009 M47.896 Obesity 078760734 E66.9 Polyarthropathy 36559187 M13.0 Chronic ki dney disease stage 3 563470720 N18.30 [id number] Marlin Pruett MD [facility] [place] [address] [place] [address] 01/23/2023 09:28:47 01/23/2023 10:38:31 Hypothyroidism 51397346 E03.9 She was not able to tolerate levothyrox ine - will provide samples of unithroid, synthroid and tirosint- patient aware tirosint is only T4 formula without fillers so patients with gastric history are most likely to tolerate this the most but this can be costly if insurance will not cover. She is aware to trial on unithroid 50 mcg daily as insurance will cover this first- she has another month of synthroid and one month of tirosint to assess if she wants to look for a better formula. She was reminded to take her T4 therapy on empty stomach with glass of water and wait one hour to eat or have her coffee in morning and up to 4 hours if ever taking any heartburn or reflux medication s to help optimize absorption . Discussed paleo like diet with restrictio n of GMOs to help with energy and to optimize absorption of vitamins and minerals and reduce inflammati on. Fatigue 92452755 R53.83 Will send for thyroid antibodies to screen for autoimmune thyroid disease in addition to CBC, CMP, ferritin, GIORGIO/rheuma toid screen and B12/folate to screen for other potential secondary causes of fatigue. Liver enzy mes level above reference range 287732289 R74.8 Send for liver ultrasound along with hepatitis and autoimmune hepatitis panel to screen further. Spent up to 45 minutes preparing to see the patient (eg, review of tests), obtaining and/or reviewing separately obtained history, performing a medically appropriat e examinatio n and evaluation , counseling and educating the patient, ordering medication s, tests, along with documentin g clinical informatio n in the electronic health record, independen tly interpreti ng results and communicat ing results to the patient. RTC in 2 months. Patient was provided a handwritte n lab order which contains our fax number. If she chooses to go outside of the [facility] system to obtain labwork she was advised to provide our fax number and my informatio n to the lab she will be obtaining labwork from in order to have her labs properly forwarded over for me to review so there is no loss of follow up due to use of outside network. She was also advised to contact our clinic informing us that she has completed her labwork so we are aware we will need to reach out to the appropriat e laboratory to request her results be forwarded to us so I might have the ability to review and make further medical decision making in her case. She voiced understand ing. Thank you for this consultati on. [id number] Adis Lloyd MD [facility] [address] [address] 02/18/2023 11:40:57 02/18/2023 12:30:38 Hypothyroidism 74193361 E03.9 Chronic low back pain 27 7193114 M54.50 Chronic pain syndrome 37 9077192 G89.4 Gouty arthropathy 386215 008 M10.09 Hypertensive disorder 38 135343 I10 Lumbar spondylosis 01307 0009 M47.896 Obesity 161370797 E66.9 Polyarthropathy 06322701 M13.0 Chronic ki dney disease stage 3 191598739 N18.30 Memory impairment 431671 006 R41.3 [id number] Adis Lloyd MD [place] [address] 03/25/2023 12:35:02 03/25/2023 14:03:46 Hypothyroidism 98003986 E03.9 Chronic low back pain 27 6094807 M54.50 Chronic pain syndrome 37 4809911 G89.4 Gouty arthropathy 639704 008 M10.09 Hypertensive disorder 38 206139 I10 Lumbar spondylosis 80557 0009 M47.896 Obesity 048439956 E66.9 Polyarthropathy 49800903 M13.0 Chronic ki dney disease stage 3 019578616 N18.30 Memory impairment 448382 006 R41.3 Obsessive- compulsive disorder 609627014 F42.9 Gastroesop hageal reflux disease without esophagitis 324548195 K21.9 [id number] Adis Lloyd MD [place] [address] 04/29/2023 12:09:36 04/29/2023 13:02:24 Hypothyroidism 58623818 E03.9 Chronic low back pain 27 4011374 M54.50 Chronic pain syndrome 37 5076435 G89.4 Gouty arthropathy 752174 008 M10.09 Hypertensive disorder 38 195351 I10 Lumbar spondylosis 73819 0009 M47.896 Obesity 856667868 E66.9 Polyarthropathy 55780240 M13.0 Chronic ki dney disease stage 3 968973789 N18.30 Memory impairment 339537 006 R41.3 Obsessive- compulsive disorder 249017737 F42.9 Gastroesop hageal reflux disease without esophagitis 515929956 K21.9 [id number] Adis Lloyd MD [address] [address] 09/03/2023 11:41:41 09/03/2023 12:45:10 Hypothyroidism 06192583 E03.9 Chronic low back pain 27 3544924 M54.50 Chronic pain syndrome 37 3043861 G89.4 Gouty arthropathy 697635 008 M10.09 Hypertensive disorder 38 525688 I10 Lumbar spondylosis 52202 0009 M47.896 Obesity 924954502 E66.9 Polyarthropathy 78294908 M13.0 Chronic ki dney disease stage 3 521499035 N18.30 Memory impairment 108792 006 R41.3 Obsessive- compulsive disorder 375879605 F42.9 Gastroesop hageal reflux disease without esophagitis 702207999 K21.9 Screening for osteoporosis 886719880 Z13.820 Screening mammography 24 942729 Z12.31 [id number] Adis Lloyd MD [place] [address] 11/10/2023 15:58:23 11/10/2023 16:45:31 Adult health examination 799985751 Z00.00 Screening for disorder 842665886 Z13.9 Hypothyroidism 12769041 E03.9 Chronic low back pain 27 4543117 M54.50 Chronic pain syndrome 37 6500126 G89.4 Gouty arthropathy 365122 008 M10.09 Hypertensive disorder 38 541321 I10 Lumbar spondylosis 60742 0009 M47.896 Obesity 561221435 E66.9 Polyarthropathy 54616698 M13.0 Chronic ki dney disease stage 3 638469166 N18.30 Memory impairment 361660 006 R41.3 Obsessive- compulsive disorder 972943767 F42.9 Gastroesop hageal reflux disease without esophagitis 128269568 K21.9 [id number] Adis Lloyd MD [address] [address] 05/11/2024 14:11:07 05/11/2024 14:45:49 Hypothyroidism 76100738 E03.9 Chronic low back pain 27 7372314 M54.50 Chronic pain syndrome 37 2299435 G89.4 Gouty arthropathy 531244 008 M10.09 Hypertensive disorder 38 310867 I10 Lumbar spondylosis 65809 0009 M47.896 Obesity 575588785 E66.9 Polyarthropathy 51694484 M13.0 Chronic ki dney disease stage 3 818150115 N18.30 Memory impairment 287914 006 R41.3 Obsessive- compulsive disorder 964034116 F42.9 Gastroesop hageal reflux disease without esophagitis 390500163 K21.9 Mammography abnormal 168 151648 R92.8 [id number] Adis Lloyd MD [address] [address] 06/22/2024 12:14:49 06/22/2024 14:00:28 Gouty arthropathy 065801195 M10.09 Chronic pain syndrome 37 7673495 G89.4 Hypothyroidism 47172135 E03.9 Chronic low back pain 27 5230078 M54.50 Hypertensive disorder 38 557195 I10 Lumbar spondylosis 06772 0009 M47.896 Obesity 845572216 E66.9 Polyarthropathy 18473688 M13.0 Chronic ki dney disease stage 3 119897480 N18.30 Memory impairment 248214 006 R41.3 Obsessive- compulsive disorder 166790369 F42.9 Gastroesop hageal reflux disease without esophagitis 023472614 K21.9 Mammography abnormal 168 964869 R92.8 Administra tion of influenza vaccine 47442865 Z23 Active immunization 3387 9002 Z23 Impacted c erumen of bilateral ears 1098943892 639259 H61.23 [id number] Adis Lloyd MD [address] [address] 07/08/2024 12:04:45 07/08/2024 12:59:55 Chronic pain syndrome 295046068 G89.4 Gouty arthropathy 894172 008 M10.09 Hypothyroidism 82856760 E03.9 Chronic low back pain 27 8839611 M54.50 Hypertensive disorder 38 950881 I10 Lumbar spondylosis 35257 0009 M47.896 Obesity 547037063 E66.9 Polyarthropathy 81773326 M13.0 Chronic ki dney disease stage 3 705736098 N18.30 Memory impairment 905400 006 R41.3 Obsessive- compulsive disorder 320976223 F42.9 Gastroesop hageal reflux disease without esophagitis 931656772 K21.9 Impacted c erumen of bilateral ears 5192435351 178082 H61.23 [id number] Adis Lloyd MD [facility] [address] [place] [address] 10/12/2024 11:56:32 10/12/2024 12:46:26 Hypothyroidism 95073463 E03.9 Chronic low back pain 27 2617063 M54.50 Chronic pain syndrome 37 6971324 G89.4 Gouty arthropathy 358726 008 M10.09 Hypertensive disorder 38 484798 I10 Lumbar spondylosis 99827 0009 M47.896 Obesity 503876506 E66.9 Polyarthropathy 41920412 M13.0 Chronic ki dney disease stage 3 375129614 N18.30 Memory impairment 094696 006 R41.3 Obsessive- compulsive disorder 967695567 F42.9 Gastroesop hageal reflux disease without esophagitis 894474519 K21.9 Impacted c erumen of bilateral ears 6088858813 557295 H61.23 Screening mammography 24 211339 Z12.31 Allergic c ontact dermatitis 170881090 L23.9 Health Concerns Section Related Observation LastModified by Organization Detai ls LastModified Time None Recorded Concern Status LastModified by Organization Details LastModified Time None Recorded Advance Directives Directive N: Patient declined informat ion. Payers Encounter Date Sequence Insurance Name Policy Number Policy Murray Covered Member ID Murray Member ID Guarantor Name 11/10/2023 1 [facility] (MEDICARE REPLACEMENT/AD VANTAGE - HMO) [id number] Monica Rolon [id number] Monica Rolon 11/10/2023 2 [place]ARE OR MEDICARE REPLACEMENT PRIMARY) Monica Rolon [id number] Monica Rolon 05/11/2024 1 [facility] (MEDICARE REPLACEMENT/AD VANTAGE - HMO) [id number] Monica Rolon [id number] Monica Rolon 05/11/2024 2 [place]ARE OR MEDICARE REPLACEMENT PRIMARY) Monica Rolon [id number] Monica Rolon 06/22/2024 1 [facility] (MEDICARE REPLACEMENT/AD VANTAGE - HMO) [id number] Monica Rolon [id number] Monica Rolon 06/22/2024 2 [place] WHEN [place]ARE OR MEDICARE REPLACEMENT PRIMARY) Monica Rolon [id number] Monica Rolon 07/08/2024 1 [facility] (MEDICARE REPLACEMENT/AD VANTAGE - HMO) [id number] Monica Rolon [id number] Monica Rolon 07/08/2024 2 [place] WHEN [place] OR MEDICARE REPLACEMENT PRIMARY) Monica Rolon [id number] Monica Rolon 10/12/2024 1 [facility] (MEDICARE REPLACEMENT/AD VANTAGE - HMO) [id number] Monica Rolon [id number] Monica Rolon 10/12/2024 2 [place] WHEN [place]ARE OR MEDICARE REPLACEMENT PRIMARY) Monica Rolon [id number] Monica Rolon Notes Date Note Type Note Provider Name and Address Organization Details Recorded Time 11/10/2023 text/html Pt is here for f /u on her lab and f/u on her chronic conditions. Doing overall well with her current meds and denies any problem with them. Denies any new concerns. Pt is also due for the MAWV and wants to get it done today. Pt is happy with her result with Phentermine and she wants to cont it for several months. Denies any problem with meds.Pt did not tolerate Levothyroxine. Pt has tried 4 different timing for it, but she still got s/e from it. So she stopped taking it and her symptoms resolved next day.Pt is requesting refill on Hydroxyzine for her chronic itching as the specialist she was seeing before for this at [facility] is gone and she will need to see another provider for this in future.Pt is f/u with her Bariatric surgeon and got another procedure done on 08/01/21 and she is f/u with them. Pt is f/u with Pain clinic at [facility] and is doing overall better with them.Pt saw breast surgeon at [facility] for her abnormal mammo result and they did testing and it all came back good, no concern with it.Pt has seen GI and had EGD and colonoscopy done with her GI and all came back good as per pt.[facility] and all her heart testing came back good as per pt.Pt has seen English Tutor at [facility] and got multiple testing done with them and everything came back good as per pt.Pt is f/u with Psych at and counsellor for her mood concerns. Doing overall Ok with her mood. Denies any SI/HI. Denies any problems with any of her meds.Pt saw spine surgeon at [facility] for her chronic back pain and they did not recommend any procedure for her. Adis Lloyd MD [address], [address], [place], [address], [facility] 11/10/2023 17:04:31 05/11/2024 text/html Pt is here for f /u on her meds and chronic conditions. Doing overall well with her current meds and denies any problem with them. Denies any new concerns. Pt got cervical spinal fusion surgery done with her Spine surgeon last month.Pt did not tolerate Levothyroxine. Pt has tried 4 different timing for it, but she still got s/e from it. So she stopped taking it and her symptoms resolved next day.Pt is requesting refill on Hydroxyzine for her chronic itching as the specialist she was seeing before for this at [facility] is gone and she will need to see another provider for this in future.Pt is f/u with her Bariatric surgeon and got another procedure done on 08/01/21 and she is f/u with them. Pt is f/u with Pain clinic at [facility] and is doing overall better with them.Pt saw breast surgeon at [facility] for her abnormal mammo result and they did testing and it all came back good, no concern with it.Pt has seen GI and had EGD and colonoscopy done with her GI and all came back good as per pt.Pt has seen Cardio at [facility] and all her heart testing came back good as per pt.Pt has seen English Tutor at [facility] and got multiple testing done with them and everything came back good as per pt.Pt is f/u with Psych at and counsellor for her mood concerns. Doing overall Ok with her mood. Denies any SI/HI. Denies any problems with any of her meds.Pt saw spine surgeon at [facility] for her chronic back pain and they did not recommend any procedure for her. Adis Lloyd MD [address], [address], [place], [address], [employer] 05/11/2024 14:43:38 06/22/2024 text/html Pt is here for h er annual exam. Doing overall well with her current meds and denies any problem with them. Denies any new concerns. Pt got cervical spinal fusion surgery done with her Spine surgeon last month and she is going for another procedure with them in 08/24.Pt did not tolerate Levothyroxine. Pt has tried 4 different timing for it, but she still got s/e from it. So she stopped taking it and her symptoms resolved next day.Pt is requesting refill on Hydroxyzine for her chronic itching as the specialist she was seeing before for this at [facility] is gone and she will need to see another provider for this in future.Pt is f/u with her Bariatric surgeon at [facility] and got another procedure done on 08/01/21 and she is f/u with them. Pt is f/u with Pain clinic at [facility] and is doing overall better with them.Pt saw breast surgeon at [facility] for her abnormal mammo result and they did testing and it all came back good, no concern with it.Pt has seen GI and had EGD and colonoscopy done with her GI and all came back good as per pt.Pt has seen Cardio at [facility] and all her heart testing came back good as per pt.Pt has seen English Tutor at [facility] and got multiple testing done with them and everything came back good as per pt.Pt is f/u with Psych at [facility] counsell[facility] for her mood concerns. Doing overall Ok with her mood. Denies any SI/HI. Denies any problems with any of her meds.Pt saw spine surgeon at [facility] for her chronic back pain and they did not recommend any procedure for her. Adis Lloyd MD [address] [place] [address], [facility] [address], [place], [address], [place] - [employer] 06/22/2024 12:57:32 07/08/2024 text/html Pt is here for f /u on her annual labs and b/l ear flushing. Doing overall well with her current meds and denies any problem with them. Denies any new concerns. Pt forgot to use ear drops. Pt got cervical spinal fusion surgery done with her Spine surgeon last month and she is going for another procedure with them in 08/24.Pt did not tolerate Levothyroxine. Pt has tried 4 different timing for it, but she still got s/e from it. So she stopped taking it and her symptoms resolved next day.Pt is requesting refill on Hydroxyzine for her chronic itching as the specialist she was seeing before for this at [facility] is gone and she will need to see another provider for this in future.Pt is f/u with her Bariatric surgeon at [facility] and got another procedure done on 08/01/21 and she is f/u with them. Pt is f/u with Pain clinic at [facility] and is doing overall better with them. Pt will be getting spinal cord stimulator placement with them on 08/05/24.Pt saw breast surgeon at [facility] for her abnormal mammo result and they did testing and it all came back good, no concern with it.Pt has seen GI and had EGD and colonoscopy done with her GI and all came back good as per pt.Pt has seen Cardio at [facility] and all her heart testing came back good as per pt.Pt has seen English Tutor at [facility] and got multiple testing done with them and everything came back good as per pt.Pt is f/u with Psych at [facility] counsell[facility] for her mood concerns. Doing overall Ok with her mood. Denies any SI/HI. Denies any problems with any of her meds.Pt saw spine surgeon at [facility] for her chronic back pain and they did not recommend any procedure for her. Adis Lloyd MD [address] [place] [address], [place], [address], [place] - [employer] 07/08/2024 12:51:03 10/12/2024 text/html Pt is here for f /u on her meds and b/l ear flushing. Doing overall well with her current meds and denies any problem with them. Denies any new concerns. Pt got cervical spinal fusion surgery & thoracic laminectomy done with her Spine surgeon at [facility]. Pt is f/u with Pain clinic at [facility] and is doing overall better with them.Pt did not tolerate Levothyroxine. Pt has tried 4 different timing for it, but she still got s/e from it. So she stopped taking it and her symptoms resolved next day.Pt is requesting refill on Hydroxyzine for her chronic itching as the specialist she was seeing before for this at [facility] is gone and she will need to see another provider for this in future.Pt is f/u with her Bariatric surgeon at [facility] and got another procedure done on 08/01/21 and she is f/u with them. Pt saw breast surgeon at [facility] for her abnormal mammo result and they did testing and it all came back good, no concern with it.Pt has seen GI and had EGD and colonoscopy done with her GI and all came back good as per pt.Pt has seen Cardio at [facility] and all her heart testing came back good as per pt.Pt has seen English Tutor at [facility] and got multiple testing done with them and everything came back good as per pt.Pt is f/u with Psych at and counsellor for her mood concerns. Doing overall Ok with her mood. Denies any SI/HI. Denies any problems with any of her meds.Pt saw spine surgeon at [facility] for her chronic back pain and they did not recommend any procedure for her. Adis Lloyd MD [address] [place] [address], [facility] [address], [place], [address], [place] [employer] 10/12/2024 12:38:22 OBGyn Episode No OBEpisode recorded.
--- OUTSIDE RECORDS SUMMARY | 2024-12-15 16:49 | XMS_ITS | Referral Summary ---
Author Organization [facility] Address [address] [place] [address] Care Team Providers Care Pourer Name Role Phone Corey Mortensen DO Unavailable [phone] Adis Lloyd MD Primary Care Provider [phone] Encounters Date Type Department Care Team Description 12/14/2024 Telephone [facility] Minimally Invasive Surgery [address] [facility] [address] [place] [address] Rehana Beebe RN 11/04/2024 1:45 PM KEEPER HELPER Office Visit [facility] [address] [place] [address] Adam David MD Peripheral neuropathy, idiopathic (Primary Dx); Mild cognitive impairment; Memory changes; Abnormality of gait due to impairment of balance; Encounter for screening for cardiovascular disorders; Encounter for screening for diabetes mellitus 10/08/2024 12:15 PM KEEPER HELPER Office Visit [facility] [address] [facility] [address] [place] [address] Olaf Pascual MD Status post cervical spinal fusion [Z98.1] (Primary Dx) 09/23/2024 11:51 AM KEEPER HELPER - 09/23/2024 11:59 PM KEEPER HELPER Hospital Encounter [facility] [address] [place] [address] Cervical spondylosis with myelopathy; Status post cervical spinal fusion Discharge Disposition: Discharge to home or self care 09/23/2024 12:45 PM KEEPER HELPER Office Visit [facility] [address] [facility] [address] [place] [address] Olaf Pascual MD Cervical spondylosis with myelopathy (Primary Dx); Status post cervical spinal fusion [Z98.1] 09/21/2024 Telephone [facility] [address] [facility] [address] [place] [address] Olaf Pascual MD from Last 3 Months Allergies Active Allergy Reactions Criticality Noted Date Comments Black Cohosh Itching High 11/13/2020 Clindamycin Unknown 03/27/2020 Fentanyl Itching,Unknown Low 06/21/2020 Morphine Itching High 08/18/2023 Tramadol Palpitations Low 01/26/2021 Medications gabapentin (NEURONTIN) 800 mg tablet TK 1 T PO TID UTD 2 8 Active amitriptyline (ELAVIL) 150 mg tablet Take 1 tablet (150 mg total) by mouth nightly Active calcium carbonate-vitami n D3 (CALTRATE 600 + D) 1500 mg (600 mg elemental) -400 units per tablet Take 1 tablet by mouth daily Active QUEtiapine (SEROquel) 100 mg tablet Take 1.5 tablets (150 mg total) by mouth nightly 2 9 Active allopurinol (ZYLOPRIM) 100 mg tablet nightly 3 9 Active omeprazole (PriLOSEC) 20 mg capsule Take 1 capsule (20 mg total) by mouth daily 2 Active multivitamin-iro n-folic acid 18-400 mg-mcg tablet Take 1 tablet by mouth daily Active lidocaine (LIDODERM) 5 % Place 1 patch on the skin daily Active carvediloL (COREG) 6.25 mg tablet Take 1 tablet (6.25 mg total) by mouth 2 (two) times a day with meals 0 Active buPROPion XL (WELLBUTRIN XL) 150 mg 24 hr tablet Take 1 tablet (150 mg total) by mouth nightly Active levothyroxine (SYNTHROID) 75 mcg tablet Take 1 tablet (75 mcg total) by mouth development assistant before breakfast Active buPROPion XL (WELLBUTRIN XL) 300 mg 24 hr tablet Take 1 tablet (300 mg total) by mouth nightly Take with 150 mg for total of 450 mg daily 3 Active cholecalciferol (VITAMIN D-3) 5,000 unit tablet Take 1 tablet (5,000 Units total) by mouth daily Active busPIRone (BUSPAR) 10 mg tablet Take 1 tablet (10 mg total) by mouth 3 (three) times a day 4 Active hydrOXYzine (ATARAX) 50 mg tablet Take 1 tablet (50 mg total) by mouth 4 (four) times a day 360 tablet 3 4 12/25/19 25 Active diazePAM (VALIUM) 5 mg tablet Take 1 tablet (5 mg total) by mouth daily as needed 4 Active nitrofurantoin monohydrate (MACROBID) 100 mg capsule Started Rx on 07/22/24. Finished 4 Active atomoxetine (STRATTERA) 80 mg capsule 4 Active cyclobenzaprine (FLEXERIL) 5 mg tablet Take 1 tablet (5 mg total) by mouth 3 (three) times a day as needed for muscle spasms 30 tablet 4 Active Active Problems Problem Noted Date Diagnosed [...] Lumbar disc herniation 11/04/2014 Malignant melanoma 11/04/2014 Immunizations Immunization Administration Dates Next Due Hep A, Adult 08/14/2021,10/26/2020 Hep B Vaccine 07/20/2018,09/23/2017,07/09/2017 Influenza, Quadrivalent, Spl it, Preservative Free, Intramuscular 08/08/2022,05/31/2021,07/20/2020,07/15,07/20/2018 Influenza, Trivalent, IM (MDV) 09/30/2016 Influenza, Unspecified 07/27/2019 Pfizer SARS-CoV-2 Monovalent Vaccination (12+ Yrs) PURPLE 02/07/2021,01/15/2021 Pneumococcal Polysaccharide PPV23 02/22/2019 Tdap 11/02/2009 Social History Tobacco Use Types Packs/Day Years Used Date Smoking Tobacco: Never Smokeless Tobacco: Never Tobacco Cessation:Counseling Given: Not Answered Alcohol Use Standard Drinks/Week Comments Yes 7 (1 standard drink = 0.6 oz pur e alcohol) [facility] Utilities Answer Date Recorded In the past 12 months has th e electric, gas, oil, or water company threatened to shut off services in your [...] week 04/21/2024 How often do you attend chur ch or buddhism services? Never 04/21/2024 Do you belong to any clubs o r organizations such as judaism groups, unions, fraternal or athletic groups, or [...] any time in the past 12 m [facility], were you homeless or living in a skilled nursing (including now)? No 04/21/2024 Personal Safety Answer Date Recorded Have you ever been in or are you currently in a harmful physical or emotional relationship or is someone making you feel afraid or unsafe? Denies 08/04/2024 Comments No Sex and Gender Information Value Date Recorded Sex Assigned at Not on file Legal Sex Female 9:40 PM KEEPER HELPER Gender Identity Female 05/07/2022 3:54 PM CDT Sexual Orientation Straight 05/07/2022 3: 54 PM CDT Occupation Industry Job Start Date Job End Date Disabled Not on file Not on file Not on file Last Filed Vital Signs Vital Sign Reading Time Taken Comments Blood Pressure 140/94 11/04/2024 1:29 PM KEEPER HELPER Pulse 93 11/04/2024 1:29 PM KEEPER HELPER Temperature 36.6 C (97.9 F) 11/04/2024 1:29 PM KEEPER HELPER Respiratory Rate 17 11/04/2024 1:29 PM KEEPER HELPER Oxygen Saturation 98% 11/04/2024 1:29 PM KEEPER HELPER Inhaled Oxygen Concentration - - Weight 118.8 kg (261 lb 12.8 oz) 2024 12:30 PM KEEPER HELPER Height 167.6 cm (5' 6 ) 09/23/2024 12:3 0 PM KEEPER HELPER Body Mass Index 42.26 09/23/2024 12:30 PM KEEPER HELPER Plan of Treatment Not on file Medical Devices Implanted Type Area Beef Cattle Farm Worker Device Identifier Shelf Expiration Date Model / Serial / Lot [employer] Inc Graft Bone Filler Jar Wilmar 6cc Putty [id number] - [id number] - [id number] Implanted:Qty: 1 on 04/20/2024 by Olaf Pascual MD at [facility] N/A: Spine Cervical [employer] Inc 01/09/2026 [id number] / [id number] / [employer] Inc Cage Spn Med 6d Acif Endoskeleton Tcs Nanolock [id number] - [id number] Implanted:Qty: 1 on 04/20/2024 by Olaf Pascual MD at [facility] N/A: Spine Cervical [employer]onic Inc 05/22/2028 [id number] / / [id number] Med[employer] Inc Cage Spn Med 6d Acif Endoskeleton Tcs Nanolock [id number] - [id number] Implanted:Qty: 1 on 04/20/2024 by Olaf Pascual MD at [facility] N/A: Spine Cervical Med[employer]onic Inc 03/27/2028 [id number] / / [id number] Med[employer]onic Inc Zevo 37mm 2 Level Spine Cervical Anterior Plate Bone Titanium [id number] - [id number] Implanted:Qty: 1 on 04/20/2024 by Olaf Pascual MD at [facility] N/A: Spine Cervical [employer] Inc [id number] / / [employer] Inc Zevo 3.5mm 17mm Variable Self Drill Spine Cervical Anterior Screw [id number] - [id number] Implanted:Qty: 2 on 04/20/2024 by Olaf Pascual MD at [facility] N/A: Spine Cervical [employer] Inc [id number] / / [employer] Inc Zevo 3.5mm 15mm Variable Self Drill Spine Cervical Anterior Screw [id number] - [id number] Implanted:Qty: 2 on 04/20/2024 by Olaf Pascual MD at [facility] N/A: Spine Cervical [employer] Inc [id number] / / [employer]onic Inc Screw Spinal Anterior Cervical Self Drilling Solid Zevo 4.0x17mm Titanium [id number] - [id number] Implanted:Qty: 2 on 04/20/2024 by Olaf Pascual MD at [facility] N/A: Spine Cervical [employer] Inc [id number] / / [employer] Inc Generator Pulse Inceptiv Sys Stm Electrcl Analges Implant [id number] - [id number] - [id number] Implanted:Qty: 1 on 08/04/2024 by Olaf Pascual MD at [facility] Spine Thoracic [employer] Inc 07/15/2025 [id number] / [id number] / Med[employer]onic Inc Specify Surescan 65cm 3 Column 16 Electrode Lead Nerve Stimulator [id number] - [id number] Implanted:Qty: 1 on 08/04/2024 by Olaf Pascual MD at [facility] Spine Thoracic [employer] Inc [id number] / / [id number] Explanted Type Area Beef Cattle Farm Worker Device Identifier Shelf Expiration Date Model / Serial / Lot Medtronic Inc Vectris 5mm 60cm 1x8 Electrode Mri Lead Neurostimulator [id number] - [id number] Explanted:Qty: 1 on 10/28/2023 at [facility] N/A: Thoracic- Lumbar Spine [employer] Inc 09/30/2027 [id number] / / [id number] Procedures Procedure Name Priority Date/Time Associated Diagnosis Comments XR SPINE CERVICAL 2 OR 3 VIEWS Schedule Routine, Read Routine (OP Routine) 09/23/2024 12:12 PM KEEPER HELPER Cervical spondylosis with myelopathy Status post cervical spinal fusion DIAGNOSTIC MAMMOGRAM BILATERAL W JOEY W IMPLANTS Schedule Routine, Read Routine (OP Routine) 05/08/2022 11:14 AM CDT Abnormal mammography from Last 3 Months or Most Recently Relevant to Health Maintenance Results * XR Spine Cervical 2 or 3 Views (09/23/2024 12:12 PM KEEPER HELPER) Anatomical Region Laterality Modality Spine N/A Computed Radiogr aphy 09/24/2024 10:5 3 AM KEEPER HELPER Impressions 09/24/2024 10:53 AM KEEPER HELPER Stable postoperative change of anterior discectomy and instrumented fusion at C4-C6. Electronically signed by: Ellie Peterson M.D. Narrative 09/24/2024 10:53 AM KEEPER HELPER EXAMINATION: XR SPINE CERVICAL 2 OR 3 VIEWS HISTORY: status post fusion ORDER DATE: 09/23/2024 12:00 PM COMPARISON: Cervical spine 07/23/2024 FINDINGS: There is redemonstration of postoperative change of anterior cervical discectomy and instrumented fusion and C4-C6 with anterior plate, screws, and disc spaces at C4-C5 and C5-C6 which appears satisfactory. There is no evidence for hardware failure. The vertebral height and alignment is maintained. Moderate C3-C4 an C6-C7 disc space narrowing is noted. There is uncovertebral arthropathy at C3-C4. Mild scoliosis convex left is seen centered at the cervicothoracic junction. Prevertebral soft tissues within normal limits. Procedure Note Ellie Peterson MD - 09/24/2024 EXAMINATION: XR SPINE CERVICAL 2 OR 3 VIEWS HISTORY: status post fusion ORDER DATE: 09/23/2024 12:00 PM COMPARISON: Cervical spine 07/23/2024 FINDINGS: There is redemonstration of postoperative change of anterior cervical discectomy and instrumented fusion and C4-C6 with anterior plate, screws, and disc spaces at C4-C5 and C5-C6 which appears satisfactory. There is no evidence for hardware failure. The vertebral height and alignment is maintained. Moderate C3-C4 an C6-C7 disc space narrowing is noted. There is uncovertebral arthropathy at C3-C4. Mild scoliosis convex left is seen centered at the cervicothoracic junction. Prevertebral soft tissues within normal limits. IMPRESSION: Stable postoperative change of anterior discectomy and instrumented fusion at C4-C6. Electronically signed by: Ellie Peterson M.D. Edita Barnes [employer] IMG XR PROCEDURES Final Result * Diagnostic Mammogram Bilateral w Joey w Implants (05/08/2022 11:14 AM CDT) Anatomical Region Laterality Modality Breast Bilateral Mammography 05/08/2022 2:42 PM CDT Impressions 05/08/2022 2:42 PM CDT 1. No evidence of malignancy in either breast. 2. Focal asymmetry in right breast has demonstrated two-year stability and is considered benign. OVERALL FINAL ASSESSMENT: BI-RADS Category 2: Benign. RECOMMENDATION: Annual screening mammography is recommended. Electronically signed by: Hafsa Tripathi M.D. Narrative 05/08/2022 2:42 PM CDT EXAMINATION: BILATERAL DIGITAL DIAGNOSTIC MAMMOGRAM INCLUDING CAD AND BILATERAL DIGITAL BREAST TOMOSYNTHESIS HISTORY: 62-year-old woman here for follow-up of probably benign focal asymmetry in the right breast, followed from 05/26/2020. COMPARISON: Mammograms on 05/26/2020 and 04/25/2021. Ultrasound on 04/25/2021 and 01/26/2021. TECHNIQUE: Full field digital mammographic views of BOTH breasts were performed, including computer aided detection (CAD) and BILATERAL digital breast tomosynthesis (DBT). BREAST PARENCHYMAL COMPOSITION: There are scattered areas of fibroglandular density. MAMMOGRAM FINDINGS: The focal asymmetry in the lower central right breast is mammographically stable from 05/26/2020 and considered benign. There is no new suspicious mass, distortion, or microcalcification in either breast. Bilateral subpectoral saline implants are intact. Procedure Note Hafsa Tripathi MD - 05/08/2022 EXAMINATION: BILATERAL DIGITAL DIAGNOSTIC MAMMOGRAM INCLUDING CAD AND BILATERAL DIGITAL BREAST TOMOSYNTHESIS HISTORY: 62-year-old woman here for follow-up of probably benign focal asymmetry in the right breast, followed from 05/26/2020. COMPARISON: Mammograms on 05/26/2020 and 04/25/2021. Ultrasound on 04/25/2021 and 01/26/2021. TECHNIQUE: Full field digital mammographic views of BOTH breasts were performed, including computer aided detection (CAD) and BILATERAL digital breast tomosynthesis (DBT). BREAST PARENCHYMAL COMPOSITION: There are scattered areas of fibroglandular density. MAMMOGRAM FINDINGS: The focal asymmetry in the lower central right breast is mammographically stable from 05/26/2020 and considered benign. There is no new suspicious mass, distortion, or microcalcification in either breast. Bilateral subpectoral saline implants are intact. IMPRESSION: 1. No evidence of malignancy in either breast. 2. Focal asymmetry in right breast has demonstrated two-year stability and is considered benign. OVERALL FINAL ASSESSMENT: BI-RADS Category 2: Benign. RECOMMENDATION: Annual screening mammography is recommended. Electronically signed by: Hafsa Tripathi M.D. Shalini Kruger NP IMG MAMMO PROCEDURES Fin al Result from Last 3 Months or Most Recently Relevant to Health Maintenance Insurance [place] [facility] MEDICARE ADVANTAGE [facility] Address: [address] [address] [place] [address] [facility] MDCR HMO REF [facility] Address: [address] [address] [place] [address] [place] [address] [employer] [facility] MEDICARE ADVANTAGE [facility] Address: [address] [address] [place] [address] Advance Directives For more information, please contact: [phone] * Full Code (Latest Code Status on File) Date Activated Date Inactivated Comments 04/20/2024 1:08 PM 04/21/2024 7:29 PM Care Teams Pourer Relationship Specialty Start Date End Date Adis Lloyd MD [address] [place] [address] [place] [address] PCP - General 11/09/19 Corey Mortensen DO [address] [place] [id number] Medical Oncologist/Hematologis t Hematology and Oncology 09/09/18
--- OUTSIDE RECORDS SUMMARY | 2024-12-15 16:49 | XMS_ITS | CONTINUITY OF CARE DOCUMENT ---
Author Name jorge patel Address Unknown Organization [facility] Address [address] [address] [facility] [address] [place] [address] Phone [phone] Care Team Providers Care Mirror Installer Name Role Phone Rodney Mejia MD Unavailable SRIRAM STOVER MD Unavailable [phone] SRIRAM STOVER MD Unavailable PROBLEMS Condition Status Date Provider Notes Cardiology examination active Rodney Mejia MD Family History of Hypertension: active Kassie Mejia MD Palpitations active Rodney Mejia MD Shortness of breath on exertion active Kassie Mejia MD Obesity active Rodney Mejia MD HTN essential active Rodney Mejia MD Dizziness active Rodney Mejia MD Preoperative cardiovascular examination active Rodney Mejia MD ENCOUNTERS Date Type Provider Location Encounter Diag nosis - In-person encounter Office Visit Rodney Mejia MD [facility] [place] Office - In-person encounter Office Visit Rodney Mejia MD [place] [facility] - In-person encounter Office Visit Rodney Mejia MD [place] [facility] Preoperative cardiovascular examination - In-person encounter Office Visit Rodney [place] [facility] - In-person encounter Office Visit Rodney Mejia MD [place] [facility] Cardiology examinationFamily History of Hypertension:Palpitations Shortness of breath on exertionObesityHTN essentialDizziness VITAL SIGNS Date Observation Value Provider Body Mass Index (Ratio) 40.35 kg/m2 Kassie Mejia MD blood pressure, cuff size regular mario Doug blood pressure, diastolic 96 mm[Hg] mario Doug blood pressure, systolic 128 mm[Hg] [facility] kasi Camacho pulse rate 86 /min [facility] oxygen saturation, oximetry 93 % [facility] respiratory rate E&M 20 /min [facility] weight E&M 250 [lb_av] [facility] Body Mass Index (Ratio) 44.22 kg/m2 Kassie Mejia MD blood pressure, diastolic 90 mm[Hg] Li nkLog blood pressure, systolic 119 mm[Hg] Nano kLog blood pressure, diastolic 90 mm[Hg] Ke rri Mayuri blood pressure, systolic 119 mm[Hg] Ker ri Mayuri blood pressure, cuff size large Ke rri Mayuri oxygen saturation, oximetry 97 % Melina Messina respiratory rate E&M 16 /min Melina samson pulse rate 81 /min Melina das weight E&M 274 [lb_av] Melina das height E&M 66 [in_i] Melina das Body Mass Index (Ratio) 45.58 kg/m2 Kassie Mejia MD blood pressure, diastolic 60 mm[Hg] Britt Mata blood pressure, systolic 112 mm[Hg] Norma Mata oxygen saturation, oximetry 94 % Feliz Mata respiratory rate E&M 16 /min Jenae Mata pulse rate 82 /min Feliz sinha weight E&M 282.4 [lb_av] Feliz azar height E&M 66 [in_i] Feliz sinha Body Mass Index (Ratio) 43.09 kg/m2 Kassie Mejia MD blood pressure, diastolic 78 mm[Hg] Cy francis Vizcarra blood pressure, systolic 130 mm[Hg] Zaira Vizcarra pulse rate 113 /min Tami barros respiratory rate E&M 16 /min Tami Vizcarra oxygen saturation, oximetry 97 % Tami Vizcarra weight E&M 267 [lb_av] Tami Jeremiahbel l blood pressure, cuff size regular Cy francis Vizcarra height E&M 66 [in_i] Tami Jeremiahbel l temperature site temporal Mary Tank sle temperature E&M 97.5 [degF] [facility] Body Mass Index (Ratio) 41.31 kg/m2 Kassie Mejia MD blood pressure, cuff size regular Cy francis Vizcarra blood pressure, diastolic 90 mm[Hg] Cy ntantoninoa Vizcarra blood pressure, systolic 134 mm[Hg] Zaira Vizcarra oxygen saturation, oximetry 96 % Tami Vizcarra respiratory rate E&M 16 /min Tami Zackery pulse rate 97 /min Tami Jeremiahbel l height E&M 66 [in_i] Tami Jeremiahbel l weight E&M 256 [lb_av] Tami Jeremiahbel l ALLERGIES No Known Drug Allergies HISTORY OF MEDICATION USE Medication Status Instructions Dates Provider Indications Com ments carvedilol 6.25 mg tablet active TAKE 1 TABLET BY MOUTH TWICE A DAY Rodney Mejia MD carvedilol 6.25 mg tablet completed Take 1 tablet by mouth twice a day due for a follow up - Melina Messina CALCITRATE TABLET active Take once a day Tami Vizcarra VITAMIN D active 1000 mg once a day Tami Vizcarra mupirocin 2% ointment active Apply twice a day Tami Vizcarra carvedilol 6.25 mg tablet completed Take 1 tablet by mouth twice a day - Melina Messina CYANOCOBALAMIN 1000 MCG/ML INJECTION SOLUTION completed once a month - Feliz Mata gabapentin 800 mg tablet active Take 1 tablet three times a day Tami Vizcarra quetiapine 100 mg tablet active Take 1.5 tablet every night Feliz Mata allopurinol 100 mg tablet active Take 1 tablet once a day Tami Vizcarra hydroxyzine HCl 50 mg tablet active Take 1 tablet four times a day Feliz Mata phentermine 15 mg capsule active Take 1 capsule Tami Vizcarra amitriptyline 150 mg tablet active Take 1 tablet once a day Tami Vizcarra venlafaxine 75 mg tablet active Take 1 tablet once a day Tami Vizcarra SOCIAL HISTORY Date Observation Value Provider drug use no Rodney Mejia MD alcohol use, average drinks per day social Rodney Mejia MD alcohol use yes Rodney Mejia MD smoking status Never smoker Rodney Mejia MD social history E&M S moking History: Huy [place] has never smoked. Rodney Mejia MD social history reviewed E&M revi ewed - no changes required Rodney Mejia MD smoking status Never smoker Melina abarca drug use no Rodney Mejia MD alcohol use, average drinks per day social Rodney Mejia MD alcohol use yes Rodney Mejia MD social history E&M S moking History: Huy perry has never smoked. Rodney Mejia MD social history reviewed E&M revi ewed - no changes required Rodney Mejia MD smoking status Never smoker Feliz Edmondson anilakinjal social history E&M S moking History: Huy perry has never smoked. Finesse Hardy social history reviewed E&M revi ewed - no changes required Finesse Hardy smoking status Never smoker Tami south number of grandchildren Rodney Mejia MD U kaveh Mejia MD drug use no Rodney Mejia MD alcohol use, average drinks per day social Rodney Mejia MD alcohol use yes Rodney Mejia MD social history E&M S moking History: Huy perry has never smoked. Rodney Mejia MD social history reviewed E&M revi ewed - no changes required Rodney Mejia MD smoking status Never smoker Tami south FAMILY HISTORY Family Member Condition Full Sister Family History of Di abetes: Full Brother Family History of Di abetes: Mother Family History of Co ngestive Heart Failure: Mother Family History of Co ronary Artery Disease: Mother Family History of Hy pertension: INSURANCE PROVIDERS Payer name Policy type / Coverage type [place] red constitution party ID [employer] Other AARP MEDICARE ADVANTAGE HMO-POS HMO [id number] [facility] Medicaid 2 [id number] ADVANCE DIRECTIVES Name Date DISCUSSED - NO DECISION MADE TREATMENT PLAN Date Name Performer [id number],B,S eems to have improved since anemia has been treated Rodney Mejia MD [id number],C, B P today: 119/90 P rior BP: 112/60 (12/22/2020) Rodney Mejia MD [id number],B,S he has lost about 10 lbs and she may be a good candidate for the GLP 1 agonist for this purpose Rodney Mejia MD Cardiology:ECG shows poor R wave progression C heck echo to r/o structural disease Rodney Mejia MD Cardiology Rodney Mejia MD Cardiology:no recurrence Rodney haro MD Cardiology: S eems to have improved since anemia has been treated Rodney Mejia MD Cardiology: H er updated medication list for this problem includes: Carvedilol 6.25 Mg Tablet (Carvedilol) ..... Take 1 tablet by mouth twice a day BP today: 128/96 P rior BP: 119/90 (08/15/2022) Rodney Mejia MD Cardiology:Seems to have improved since anemia has been treated Rodney Mejia MD Cardiology: B P today: 119/90 P rior BP: 112/60 (12/22/2020) Rodney Mejia MD Cardiology:She has l ost about 10 lbs and she may be a good candidate for the GLP 1 agonist for this purpose Rodney Mejia MD Cardiology:She is lo w risk and is cardiovascularly clear for upcoming bariatric surgery Rodney Mejia MD Cardiology Rodney Mejia MD Cardiology:Improved with weight loss. Has upcoming bariatric surgery Rodney Mejia MD Cardiology: B P today: 112/60 P rior BP: 130/78 (01/20/2020) Rodney Mejia MD Cardiology Finesse Hardy Cardiology: B P today: 130/78 P rior BP: 134/90 (11/11/2019) Finesse Hardy Cardiology:Echo show ed EF of 60% with mod MR, mild TR N uclear stress test showed normal perfusion imaging Finesse Hardy Cardiology:Symptoms persist. Will check a tele monitor for two weeks. Finesse Hardy Cardiology New Patient Rodney rothman MD Cardiology New Patie nt:Will check a nuclear stress test and an echo. Rodney Mejia MD Cardiology New Patient:Will chec k a 24 hour Holter. Rodney Mejia MD Cardiology New Patie nt:Will DC her lisinopril and start her on coreg 6.25 BID. BP today: 134/90 Her updated medication list for this problem includes: Lisinopril 5 Mg Oral Tablet (Lisinopril) ..... Take 1 tab daily Rodney Mejia MD Date Name Complete Echo EKG Mobile Cardiac Tele Stress Exercise Card iolite Holter Monitor 24 Hr Complete Echo HISTORY OF PROCEDURES Procedure Date Procedure Name Provider Procedure Notes S tatus EKG Rodney Mejia MD completed EKG Rodney Mejia MD completed Mobile Cardiac Telem etry - Tech Rodney Mejia MD completed Mobile Cardiac Telem etry - Prof Rodney Mejia MD completed EKG Rodney Mejia MD completed Cardiolite, 2 units Rodney Mejia MD completed SPECT Images Rodney Mejia MD complet ed Stress EKG Rodney Mejia MD completed EKG Rodney Mejia MD completed
--- OUTSIDE RECORDS SUMMARY | 2024-12-15 16:49 | XMS_ITS | Clinical Summary ---
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 Active buPROPion XL (WELLBUTRIN XL) [...] Lumbar disc herniation 11/04/2014 Malignant melanoma 11/04/2014 Encounters Date Type Department Care Team Description 12/14/2024 Telephone [facility] Minimally Invasive Surgery [address] [facility] Medical Office Building [address] [place] [phone] Rehana Beebe RN 11/04/2024 1:45 PM DATA ANALYSIS INTERN [facility] [address] [facility] [address] [place] [phone] Adam David MD Peripheral neuropathy, idiopathic (Primary Dx); Mild cognitive impairment; Memory changes; Abnormality of gait due to impairment of balance; Encounter for screening for cardiovascular disorders; Encounter for screening for diabetes mellitus 10/08/2024 12:15 PM DATA ANALYSIS INTERN Office Visit [facility] NEURO [id number] [place] [address] [address] [place] [address] Olaf Pascual MD Status post cervical spinal fusion [Z98.1] (Primary Dx) 09/23/2024 12:45 PM DATA ANALYSIS INTERN Office Visit [address] [place] [address] Olaf Pascual MD Cervical spondylosis with myelopathy (Primary Dx); Status post cervical spinal fusion [Z98.1] 09/23/2024 11:51 AM DATA ANALYSIS INTERN - 09/23/2024 11:59 PM DATA ANALYSIS INTERN Hospital Encounter [facility] [address] [place] [address] Cervical spondylosis with myelopathy; Status post cervical spinal fusion Discharge Disposition: Discharge to home or self care 09/21/[address] [place] [address] Olaf Pascual MD from Last 3 Months Immunizations Immunization Administration Dates Next Due Hep A, Adult 08/14/2021,10/26/2020 Hep B Vaccine 07/20/2018,09/23/2017,07/09/2017 Influenza, Quadrivalent, Spl it, Preservative Free, Intramuscular 08/08/2022,05/31/2021,07/20/2020,07/15,07/20/2018 Influenza, Trivalent, IM (MDV) 09/30/2016 Influenza, Unspecified 07/27/2019 Pfizer SARS-CoV-2 Monovalent Vaccination (12+ Yrs) PURPLE 02/07/2021,01/15/2021 Pneumococcal Polysaccharide PPV23 02/22/2019 Tdap 11/02/2009 Surgical History Surgery Date Site/Laterality Comments GASTROPLASTY CHOLECYSTECTOMY COMBINED AUGMENTATION MAMMAPLASTY AND ABDOMINOPLASTY TOTAL HIP ARTHROPLASTY Bilateral SPINAL FUSION L4-L5 FLUORO GUIDED ASPIRATION OR INJECTION INTERMEDIATE JOINT RIGHT 08/11/2023 Right BARIATRIC SURGERY 09/01/2011 - 08/31/2012 revision COLONOSCOPY 2021 APPENDECTOMY 1979 SKIN CANCER EXCISION malignant melanoma CERVICAL FUSION 04/01/2024 - 05/01/2024 c4-c6 Medical History Medical History Date Comments Morbid obesity (HCC) Anxiety and depression Iron deficiency anemia due to chronic blood loss Osteoarthritis of back Peripheral neuropathy Hypertension Arthritis GERD (gastroesophageal reflux disease) Hypothyroidism ADHD (attention deficit hyperactivity disorder) Melanoma (HCC) upper left back Gout Disc disorder of lumbar region Lumbar stenosis Anxiety Chronic back pain Scoliosis Torn rotator cuff left shoulder, mild tear Family History Medical History Relation Name Comments Diabetes Brother 1 Arpit Hypertension Brother 1 Arpit Diabetes Brother 2 Landon Hypertension Brother 2 Landon Osteoarthritis Brother 2 Landon Diabetes Brother 3 Robert Hearing loss Brother 3 Robert Heart failure Brother 3 Robert Hyperlipidemia Brother 3 Robert Osteoarthritis Brother 3 Robert Diabetes Brother 4 Shawn Cancer Father [place] Esophageal cancer Father [place] Coronary artery disease Mother Alveta Heart disease Mother Alveta Heart failure Mother Alveta Hyperlipidemia Mother Alveta Hypertension Mother Alveta Osteoarthritis Mother Alveta Hearing loss Sister 1 Penny Hypertension Sister 1 Penny Osteoarthritis Sister 1 Penny Thyroid disease Sister 1 Penny Diabetes Sister 2 Bre Hypertension Sister 2 Bre Osteoarthritis Sister 2 Bre Diabetes Sister 3 Shelley Thyroid disease Sister 3 Shelley Relation Name Status Comments Brother 1 Arpit Brother 2 Landon Brother 3 Robert Brother 4 Shawn Father [place]ord (Age 62) Mother Alveta Sister 1 Penny Sister 2 Bre Sister 3 Shelley Social History Tobacco Use Types Packs/Day Years Used Date Smoking Tobacco: Never Smokeless Tobacco: Never Tobacco Cessation:Counseling Given: Not Answered Alcohol Use Standard Drinks/Week Comments Yes 7 (1 standard drink = 0.6 oz pur e alcohol) [facility] Utilities Answer Date Recorded In the past 12 months has [employer], gas, oil, or water [employer] threatened to shut off services in your [...] often do you attend chur ch or church services? Never 04/21/2024 Do you belong to any clubs o r organizations such as anglican groups, unions, fraternal or athletic groups, or [...] any time in the past 12 m [facility], were you homeless or living in a fpc (including now)? No 04/21/2024 Personal Safety Answer Date Recorded Have you ever been in or are you currently in a harmful physical or emotional relationship or is someone making you feel afraid or unsafe? Denies 08/04/2024 Comments No Sex and Gender Information Value Date Recorded Sex Assigned at Not on file Legal Sex Female 9:40 PM DATA ANALYSIS INTERN Gender Identity Female 05/07/2022 3:54 PM CDT Sexual Orientation Straight 05/07/2022 3: 54 PM CDT Occupation Industry Job Start Date Job End Date Disabled Not on file Not on file Not on file Obstetrics History Last Filed Vital Signs Vital Sign Reading Time Taken Comments Blood Pressure 140/94 11/04/2024 1:29 PM DATA ANALYSIS INTERN Pulse 93 11/04/2024 1:29 PM DATA ANALYSIS INTERN Temperature 36.6 C (97.9 F) 11/04/2024 1:29 PM DATA ANALYSIS INTERN Respiratory Rate 17 11/04/2024 1:29 PM DATA ANALYSIS INTERN Oxygen Saturation 98% 11/04/2024 1:29 PM DATA ANALYSIS INTERN Inhaled Oxygen Concentration - - Weight 118.8 kg (261 lb 12.8 oz) 2024 12:30 PM DATA ANALYSIS INTERN Height 167.6 cm (5' 6 ) 09/23/2024 12:3 0 PM DATA ANALYSIS INTERN Body Mass Index 42.26 09/23/2024 12:30 PM DATA ANALYSIS INTERN Plan of Treatment Health Maintenance Due Date Last Done Comments Cervical Cancer Screening 1961 Colon Cancer Screening-Colonoscopy 1961 Depression Screening 1961 Hepatitis C Screening 1961 Regular Well Visit/Exam 18-64 1979 Zoster Vaccine (1 of 2) 2011 Covid-19 Vaccine ( - 2023- season) 2024 02/07/2021, 01/15/2021 Breast Cancer Screening-Mammogram 09/30/2024 09/30/2023, 05/08/2022, 04/25/2021, Additional history exists DTaP/Tdap/Td Vaccine (3 - Td or Tdap) 06/22/2034 06/22/2024, 11/02/2009 Hepatitis B Screening Completed 07/20/2018 , 09/23/2017, 07/09/2017 Pneumococcal vaccine <65 Aged Out 02/22/2019 No longer eligible based on patient's age to complete this topic Influenza Vaccine Completed 06/22/2024, , 05/31/2021, Additional history exists Medical Devices Implanted Type Area Laborer Plumbing Device Identifier Shelf Expiration Date Model / Serial / Lot Medtronic Inc Graft Bone Filler Jar Enrique 6cc Putty [id number] - [id number] - [id number] Implanted:Qty: 1 on 04/20/2024 by Olaf Pascual MD at [facility] N/A: Spine Cervical Medtronic Inc 01/09/2026 [id number] / [id number] / Medtronic Inc Cage Spn Med 6d Acif Endoskeleton Tcs Nanolock [id number] - [id number] Implanted:Qty: 1 on 04/20/2024 by Olaf Pascual MD at [facility] N/A: Spine Cervical Medtronic Inc 05/22/2028 [id number] / / [id number] Med[employer]onic Inc Cage Spn Med 6d Acif Endoskeleton Tcs Nanolock [id number] - [id number] Implanted:Qty: 1 on 04/20/2024 by Olaf Pascual MD at [facility] N/A: Spine Cervical Medtronic Inc 03/27/2028 [id number] / / [id number] Med[employer]onic Inc Zevo 37mm 2 Level Spine Cervical Anterior Plate Bone Titanium [id number] - [id number] Implanted:Qty: 1 on 04/20/2024 by Olaf Pascual MD at [facility] N/A: Spine Cervical Med[employer]onic Inc [id number] / / Med[employer]onic Inc Zevo 3.5mm 17mm Variable Self Drill Spine Cervical Anterior Screw [id number] - [id number] Implanted:Qty: 2 on 04/20/2024 by Olaf Pascual MD at [facility] N/A: Spine Cervical Medtronic Inc [id number] / / Medtronic Inc Zevo 3.5mm 15mm Variable Self Drill Spine Cervical Anterior Screw [id number] - [id number] Implanted:Qty: 2 on 04/20/2024 by Olaf Pascual MD at [facility] N/A: Spine Cervical Med[employer]onic Inc [id number] / / Med[employer]onic Inc Screw Spinal Anterior Cervical Self Drilling Solid Zevo 4.0x17mm Titanium [id number] - [id number] Implanted:Qty: 2 on 04/20/2024 by Olaf Pascual MD at [facility] N/A: Spine Cervical Medtronic Inc [id number] / / Medtronic Inc Generator Pulse Inceptiv Sys Stm Electrcl Analges Implant [id number] - [id number] - [id number] Implanted:Qty: 1 on 08/04/2024 by Olaf Pascual MD at [facility] Spine Thoracic Medtronic Inc 07/15/2025 [id number] / [id number] / Medtronic Inc Specify Surescan 65cm 3 Column 16 Electrode Lead Nerve Stimulator [id number] - [id number] Implanted:Qty: 1 on 08/04/2024 by Olaf Psacual MD at [facility] Spine Thoracic Med[employer]onic Inc [id number] / / [id number] Explanted Type Area Laborer Plumbing Device Identifier Shelf Expiration Date Model / Serial / Lot Medtronic Inc Vectris 5mm 60cm 1x8 Electrode Mri Lead Neurostimulator [id number] - [id number] Explanted:Qty: 1 on 10/28/2023 at [facility] N/A: Thoracic- Lumbar Spine Medtronic Inc 09/30/2027 [id number] / / [id number] Procedures Procedure Name Priority Date/Time Associated Diagnosis Comments XR SPINE CERVICAL 2 OR 3 VIEWS Schedule Routine, Read Routine (OP Routine) 09/23/2024 12:12 PM DATA ANALYSIS INTERN Cervical spondylosis with myelopathy Status post cervical spinal fusion DIAGNOSTIC MAMMOGRAM BILATERAL W JOEY W IMPLANTS Schedule Routine, Read Routine (OP Routine) 05/08/2022 11:14 AM CDT Abnormal mammography from Last 3 Months or Most Recently Relevant to Health Maintenance Results * XR Spine Cervical 2 or 3 Views (09/23/2024 12:12 PM DATA ANALYSIS INTERN) Anatomical Region Laterality Modality Spine N/A Computed Radiogr aphy 09/24/2024 10:5 3 AM DATA ANALYSIS INTERN Impressions 09/24/2024 10:53 AM DATA ANALYSIS INTERN Stable postoperative change of anterior discectomy and instrumented fusion at C4-C6. Electronically signed by: Ellie Peterson M.D. Narrative 09/24/2024 10:53 AM DATA ANALYSIS INTERN EXAMINATION: XR SPINE CERVICAL 2 OR 3 [...] signed by: Ellie Peterson M.D. Edita Barnes WELLNESS ASSISTANT IMG XR PROCEDURES Final Result * Diagnostic [...] Recently Relevant to Health Maintenance Insurance IDPA [facility] MEDICARE ADVANTAGE [facility] MEDICARE Address: [facility] [address] [place] [address] [facility] MDCR HMO REF [facility] MEDICARE Address: [address] [address] [place] [address] IDPA IDPA [facility] MEDICARE ADVANTAGE [facility] MEDICARE Address: [address] [address] [place] [address] Advance Directives For more information, please contact: [phone] * Full Code (Latest Code Status on File) Date Activated Date Inactivated Comments 04/20/2024 1:08 PM 04/21/2024 7:29 PM Care Teams Shift Commander Relationship Specialty Start Date End Date Adis Lloyd MD [address] [facility] [place] [address] PCP - General 11/09/19 Corey Mortensen DO [address] [place] [id number] Medical Oncologist/Hematologis t Hematology and Oncology 09/09/18
--- OUTSIDE RECORDS SUMMARY | 2024-12-15 16:49 | XMS_ITS | Clinical Summary ---
Author Organization [facility] Address [address] [place] [address] Care Team Providers Care Sql Ssrs Ssis Developer Name Role Phone Unavailable Primary Care Provider Unavailabl e Social History Tobacco Use Types Packs/Day Years Used Date Smoking Tobacco: Never Assessed Comments Unknown Sex and Gender Information Value Date Recorded Sex Assigned at Not on file Legal Sex Female 10:25 PM ANESTHESIOLOGIST ASSISTANT CERTIFIED Gender Identity Not on file Sexual Orientation Not on file Last Filed Vital Signs Vital Sign Reading Time Taken Comments Blood Pressure 108/70 07/11/2010 1:14 PM ANESTHESIOLOGIST ASSISTANT CERTIFIED Pulse 80 07/11/2010 1:14 PM ANESTHESIOLOGIST ASSISTANT CERTIFIED Temperature - - Respiratory Rate - - Oxygen Saturation - - Inhaled Oxygen Concentration - - Weight 90.3 kg (199 lb) 07/11/2010 1:14 PM ANESTHESIOLOGIST ASSISTANT CERTIFIED Height - - Body Mass Index - - Plan of Treatment Health Maintenance Due Date Last Done Comments Cervical Cancer Screening Pa p Smear (Age 30 to 64) Every 3 Years 1961 Colorectal Cancer Screening Colonoscopy (10 Years) 1961 Annual Physical 02/10/1964 Hepatitis C 1979 DTaP, Tdap and Td Vaccines ( 1 - Tdap) 02/10/1980 Cervical Cancer Screening Pa p with HPV Testing (Age 30 to 64) Every 5 Years 1991 Cervical Cancer Screening with HPV 1991 Mammogram Screening 2001 Zoster Vaccines (1 of 2) 2011 COVID-19 Vaccine ( - 2023-2 5 season) 2024 RSV Immunization or 60+ Years (1 - 1-dose 75+ series) 02/10/2036 Meningococcal B Vaccine Aged Out No l onger eligible based on patient's age to complete this topic Meningococcal Vaccine Aged Out No bradley domingo eligible based on patient's age to complete this topic Pneumococcal Vaccine: Pediat rics (0 to 5 Years) and At-Risk Patients (6 to 49 Years) Aged Out No longer eligible b ased on patient's age to complete this topic RSV Immunizations Under 20 Months Aged Out No longer eligible based on patient's age to complete this topic
--- OUTSIDE RECORDS SUMMARY | 2024-12-15 16:49 | XMS_ITS | Encounter Summary ---
Author Organization [facility] Address [address] [place] [address] Phone Care Team Providers Care Custom Feed Mill Operator Helper Name Role Phone Adis Lloyd MD Primary Care Provider [phone] Corey Mortensen DO Unavailable [phone] Adis Lloyd MD Primary Care Provider [phone] Encounter Details Date Type Department Care Team (Latest Contact Info) Description 11/16/2012 Orders Only [facility] Scanning, Provider Social History Tobacco Use Types Packs/Day Years Used Date Smoking Tobacco: Never Assessed Comments Unknown Sex and Gender Information Value Date Recorded Sex Assigned at Not on file Legal Sex Female 9:40 PM LINEN CHECKER Gender Identity Female 05/07/2022 3:54 PM CDT Sexual Orientation Straight 05/07/2022 3: 54 PM CDT documented as of this encounter Plan of Treatment Not on file documented as of this encounter Procedures Procedure Name Priority Date/Time Associated Diagnosis Comments SCAN - LABS 11/16/2012 documented in this encounter Results * SCAN - LABS (11/16/2012) us Provider Scanning Final Result documented in this encounter Visit Diagnoses Not on filedocumented in this encounter Care Teams Custom Feed Mill Operator Helper Relationship Specialty Start Date End Date Adis Lloyd MD [address] [place] [address] PCP - General Corporate Administrative Assistant 09/08/18 11/08/19 Adis Lloyd MD [address] [facility] [place] [address] PCP - General 11/09/19 Corey Mortensen DO [address] [place] [address] Medical Oncologist/Hematologis t Hematology and Oncology 09/09/18 documented as of this encounter
--- OUTSIDE RECORDS SUMMARY | 2024-12-15 16:55 | XMS_ITS | CONTINUITY OF CARE DOCUMENT ---
Author Name jorge patel Address Unknown Organization [facility] Address [address] [facility] [place] [address] Phone [phone] Care Team Providers Care Morals Squad Police Officer Name Role Phone Rodney Mejia MD Unavailable SRIRAM STOVER MD Unavailable SRIRAM STOVER MD Unavailable PROBLEMS Condition Status [...] In-person encounter Office Visit Rodney Mejia MD [facility] Office - In-person encounter Office Visit Rodney Mejia MD [facility] - In-person encounter Office Visit Rodney Mejia MD [facility] Preoperative cardiovascular examination - In-person encounter Office Visit Rodney [place] [facility] - In-person encounter Office Visit Rodney Mejia MD [facility] Cardiology examinationFamily History of Hypertension:Palpitations Shortness of breath on exertionObesityHTN essentialDizziness VITAL SIGNS Date Observation Value Provider Body Mass Index (Ratio) 40.35 kg/m2 Kassie Mejia MD blood pressure, cuff size regular mario Doug blood pressure, diastolic 96 mm[Hg] mario Doug blood pressure, systolic 128 mm[Hg] [facility] kasi Camacho pulse rate 86 /min [facility] oxygen saturation, oximetry 93 % [facility] respiratory rate E&M 20 /min [facility] weight E&M 250 [lb_av] [facility] Body Mass Index (Ratio) 44.22 kg/m2 Kassie Mejia MD blood pressure, diastolic 90 mm[Hg] Li nkLog blood pressure, systolic 119 mm[Hg] Nano kLog blood pressure, diastolic 90 mm[Hg] Ke rri Mayuri blood pressure, systolic 119 mm[Hg] Ker ri Mayuri blood pressure, cuff size large Ke rri Mayuri oxygen saturation, oximetry 97 % Melina Messina respiratory rate E&M 16 /min Melian samson pulse rate 81 /min Melina das weight E&M 274 [lb_av] Melina das height E&M 66 [in_i] Melina das Body Mass Index (Ratio) 45.58 kg/m2 Kassie Mejia MD blood pressure, diastolic 60 mm[Hg] Britt Maat blood pressure, systolic 112 mm[Hg] Norma Mata [...] Tank sle temperature E&M 97.5 [degF] [facility] Body Mass Index (Ratio) 41.31 kg/m2 Kassie [...] Payer name Policy type / Coverage type [place] red democrat ID [employer] Other AARP MEDICARE ADVANTAGE HMO-POS HMO [id number] [facility] Medicaid 2 [id number] ADVANCE DIRECTIVES Name Date DISCUSSED - NO DECISION MADE TREATMENT PLAN Date Name Performer [id number],B,S eems to have improved since anemia has been treated Rodney Mejia MD [id number],C, B P today: 119/90 P rior BP: 112/60 (12/22/2020) Rodney Mejia MD [id number],B,S he has lost about 10 lbs and [...]
[2024-12-15 17:07] LABS: Basophils Absolute Auto 0.08 K/mm3 (0.00-0.10); Basophils Percent Auto 1.6 % (0.0-1.0); Eosinophils Absolute Auto 0.31 K/mm3 (0.02-0.50); Eosinophils Percent Auto 6.3 % (1.0-6.0); Hematocrit 47.6 % (35.0-49.0); Hemoglobin 15.6 g/dL (12.0-15.0); Immature Granulocyte Absolute 0.01 K/mm3 (0.00-0.00); Immature Granulocyte Percent A 0.2 % (0.0-0.0); Lymphocytes Percent Auto 24.5 % (18.0-42.0); Mean Corpuscular HGB Conc 32.8 g/dL (32-36); Mean Corpuscular Hemoglobin 31.7 pg (27.0-31.0); Mean Corpuscular Volume 96.7 fL (78.0-102.0); Mean Platelet Volume 9.4 fl (9.2-11.8); Monocytes Absolute Auto 0.53 K/mm3 (0.10-0.90); Monocytes Percent Auto 10.8 % (2.0-11.0); Neutrophils Absolute Auto 2.76 K/mm3 (1.70-7.20); Neutrophils Percent Auto 56.6 % (50.0-70.0); Platelet Count Result 235 K/mm3 (150-420); Red Blood Count 4.92 M/mm3 (4.20-5.40); Red Cell Distribution Width 13.2 % (11.6-14.4); White Blood Count 4.9 K/mm3 (4.8-10.8)
[2024-12-15 17:25] LABS: Lactic Acid Reflex 1.6 mmol/L (0.4-2.0)
[2024-12-15 17:31] LABS: Alanine Aminotransferase 47 U/L (14-59); Albumin Level 3.7 g/dL (3.4-5.0); Alkaline Phosphatase 150 U/L (46-116); Anion Gap 7 mmol/L (4-12); Aspartate Amino Transferase 31 U/L (15-37); Bilirubin,Total 0.5 mg/dL (0.00-1.00); Blood Urea Nitrogen 13 mg/dL (7-18); Calcium 9.4 mg/dL (8.5-10.1); Carbon Dioxide 31 mmol/L (21-32); Chloride 103 mmol/L (98-108); Estimated CRCL calculation 51 ml/min; Estimated Glomerular Filt Rate 43; Glucose 104 mg/dL (70-99); NT Pro B Type Natriuretic Pept 51 pg/mL (0-125); Osmolality Calculated 292 mOsm/kg (285-295); Potassium 4.5 mmol/L (3.5-5.1); Sodium 141 mmol/L (136-145); Total Protein 7.2 g/dL (6.4-8.2)
[2024-12-15 17:44] LABS: Appearance Urine Clear (Clear); Bilirubin Urine Negative (Negative); Blood Urine Negative (Negative); Color Urine Light Yellow (Yellow); Glucose Urine UA Negative (Negative); Ketones Urine Negative (Negative); Nitrate Urine Negative (Negative); Protein Urine Negative (Negative); Urobilinogen Urine 0.2 mg/dL (0.2-1.0); pH Urine 6.5 (5.0-8.0)
[2024-12-15 17:47] LABS: Add Urine Microscopic? NO; Leukocyte Esterase Ur Negative LEU/UL (Negative)
--- NOTE | 2024-12-15 19:19 | PC.NURSE ---
patient report received from SHARI Baldwin on day shift for continuation of care on nights. Dr. Delarosa at bedside at this time providing patient update on results and plan of care.
== END 2024-12-15 19:26 | disposition home or self-care (01) ==
PROVIDERS: Emergency Provider Internal Medicine Critical Care Medicine; PCP Family Medicine
DX: S09.90XA Unspecified injury of head, initial encounter (principal); R25.1 Tremor, unspecified; L98.499 Non-pressure chronic ulcer of skin of other sites with unspecified severity; I10 Essential (primary) hypertension; F41.9 Anxiety disorder, unspecified; F32.A Depression, unspecified; E03.9 Hypothyroidism, unspecified; Z79.899 Other long term (current) drug therapy; Z79.1 Long term (current) use of non-steroidal anti-inflammatories (NSAID); W01.0XXA Fall on same level from slipping, tripping and stumbling without subsequent striking against object, initial encounter; Y92.009 Unspecified place in unspecified non-institutional (private) residence as the place of occurrence of the external cause
CPT/HCPCS: 36415; 70450; 71045; 72125; 72170; 80053; 81003; 83605; 83880; 84443; 85025; 93005; 99284; A9270

== ENCOUNTER 2024-12-26 14:15 | Emergency (ER) | payer MEDICARE, MEDICAID, SELFPAY ==
--- NOTE | ~2024-12-26 | XR_ITS ---
XR foot LT min 3V Ordering provider: Brianna Alcaraz APRN History: . fell off ladder, LATERLA FOOT PAIN . Comparison: None. FINDINGS: BONES: No definite acute fracture or dislocation. Bony fragment seen near to the proximal phalanx of the little toe. Possibility of a fracture osteophyte cannot be excluded. Postoperative changes in the proximal phalanx of the big toe. JOINT SPACES: Narrowing of the proximal and distal interphalangeal joints. No tarsal coalition. Old healed fracture is seen in the distal fibula. Fragments near to the navicular bone most likely ol d fracture. SOFT TISSUES: Soft tissue ossification seen between the fourth and fifth metatarsal bones. IMPRESSION: No definite acute osseous abnormality left foot. Possibly a fracture osteophyte at the base of the pr oximal phalanx of the little toe is not excluded. Reviewed, dictated and finalized at location A. IMPRESSION: No definite acute osseous abnormality left foot. Possibly a fracture osteophyte at the base of the proximal phalanx of the little toe is not excluded.
[2024-12-26 14:26] VITALS: BP 109/58; PULSE 85; RESP 16; TEMP 36.1; O2SAT 100
--- NOTE | 2024-12-26 14:39 | ED.LOWEXIN ---
HPI - Extremity Injury (Lower) General Chief Complaint: Extremity Injury, Lower Stated Complaint: Left Foot Pain Time Seen by Provider: 12/26/24 14:45 Source: patient Mode of arrival: ambulatory Limitations: no limitations History of Present Illness HPI Narrative: 64 y/o female presented for c/o left foot pain. Onset yesterday. States she fell off of the bottom rung of a ladder and the foot was caught in some debris, causing her to fall. Pain is to the midfoot and bottom of the foot. Denies deformity or swelling. Took tylenol. Denies any other complaints of pain. Related Data Home Medications ?Medication ?Instructions ?Recorded ?Confirmed ?Last Taken ?Type omeprazole 20 mg capsule,delayed 20 mg PO BID 02/10/21 03/17/23 11/28/21 History release quetiapine 100 mg tablet 100 mg PO DAILY 02/10/21 03/17/23 11/28/21 History quetiapine 50 mg tablet 50 mg PO DAILY 02/10/21 03/17/23 11/28/21 History calcium citrate 600 mg PO BID 02/13/21 03/17/23 11/28/21 History cholecalciferol (vitamin D3) 125 125 mcg PO DAILY 02/13/21 03/17/23 11/28/21 History mcg (5,000 unit) capsule carvedilol 6.25 mg tablet 6.25 mg PO BID 05/17/21 03/17/23 11/29/21 History buspirone 10 mg tablet 10 mg PO TID 06/10/21 03/17/23 11/29/21 History gabapentin 800 mg tablet 800 mg PO QID 11/27/21 03/17/23 11/29/21 History hydroxyzine HCl 50 mg tablet 50 mg PO QID 11/27/21 03/17/23 11/29/21 History bupropion HCl 300 mg 24 hr tablet, 300 mg PO DAILY 12/15/24 Unknown History extended release cyclobenzaprine 10 mg tablet 5 mg PO Q12H 12/15/24 Unknown History levothyroxine 75 mcg tablet 75 mcg PO DAILY 12/15/24 Unknown History (Synthroid) meloxicam 7.5 mg tablet 7.5 mg PO .QOD 12/15/24 Unknown History multivitamin-ferrous 1 tablet PO DAILY 12/15/24 Unknown History fumarate-folic acid 18 mg-400 mcg tablet (Centrum) Allergies Allergy/AdvReac Type Severity Reaction Status Date / Time clindamycin Allergy Severe Itching Verified 03/17/23 10:26 hydromorphone (From Dilaudid) Allergy Severe Itching Verified 03/17/23 10:26 morphine Allergy Severe Itching Verified 03/17/23 10:26 tramadol AdvReac Severe Palpitation Verified 03/17/23 10:26 s Review of Systems Review of Systems: per HPI All systems reviewed & are unremarkable except as noted in HPI and below PMFSH Past Medical History Medical History Achilles tendinitis, left leg Fracture of distal end of left fibula Patellofemoral arthralgia of both knees Peripheral neuropathy Metatarsalgia, left foot Encounter for postoperative care Cough Left foot pain Metatarsal bone fracture Dermatillomania Arthritis Wears glasses Weight gain History of MRSA infection Depression Anxiety Anemia GERD (gastroesophageal reflux disease) Hypertension Surgical History Surgical History History of bunionectomy History of melanoma excision History of breast lift H/O lumbosacral spine surgery H/O gastric bypass History of hip surgery Hx of cholecystectomy Family History Family History Other Arthritis Depression Diabetes mellitus Esophageal cancer Heart disease High cholesterol Hypertension Neuropathy Social History Social History Smoking status: Unknown if ever smoked Alcohol intake: current Alcohol use details: 2/MONTH Substance use: never Substance use type: does not use Living arrangements: alone Gender identity (if verbalized by the patient): Female Sexual Orientation (if Verbalized by the Patient): Straight or Heterosexual Spiritual care concerns: No Comments At time of signature, I have reviewed and agree with nursing past medical, surgical, social and family history unless otherwise noted. Please see nursing chart for further information. There is no relevant family history pertinent to the presenting complaint Exam Narrative: GENERAL: Well-appearing CHEST: Speaks in full sentences. No respiratory distress. HEART: Regular rate and rhythm. Normal and equal peripheral pulses. EXTREMITIES: Left foot has normal strength and sensation, Slightly decreased range of motion of toes due to endorses pain with movement. reports tenderness with palpation to the 3rd, 4th, and 5th MTP joints of the plantar surface. No swelling or ecchymosis, No open wounds, skin tenting, or obvious deformity; alignment normal, pulse palpable and equal bilaterally, skin warm, dry, pink. Capillary refill less than 3 seconds. SKIN: Warm, dry NEURO: Alert and oriented x3. PSYCH: Normal mood and affect Course Course Emergency Course: Patient is aware of diagnosis, understands and agrees to treatment plan. Anticipatory guidance given. Patient agrees to follow-up as directed and is aware of reasons to seek care at the emergency department. Portions of this record may have been created with voice recognition software Level of Care: Express Care Visit Vital Signs Vital signs: Vital Signs Temperature 97 F L 12/26/24 14:26 Pulse Rate 85 12/26/24 14:26 Respiratory Rate 16 12/26/24 14:26 Blood Pressure 109/58 L 12/26/24 14:26 Pulse Oximetry 100 12/26/24 14:26 Temperature 97 F L 12/26/24 14:26 Pulse Rate 85 12/26/24 14:26 Respiratory Rate 16 12/26/24 14:26 Blood Pressure 109/58 L 12/26/24 14:26 Pulse Oximetry 100 12/26/24 14:26 Reviewed MDM - Extremity Injury (Lower) MDM Narrative Medical decision making narrative: Discussed physical exam findings and x-ray. Postop shoe and Haseeb wrap applied.. Advised supportive measures and signs/symptoms to go to the ER. Pt is appropriate for outpt treatment and f/u. Differential Diagnosis Differential diagnosis: Likely ankle sprain and strain, ankle fracture and other (Plantar fasciitis, heel spur, foot strain/sprain, metatarsal fracture, metatarsalgia, ta's neuroma) Imaging Data Radiologist's impression: Patient: Monica Rolon : 1960 MR#: [id number] Age: 64 Acct:[id number] Loc: [facility] ADM Date: 12/26/24Attending Dr: Ordering Physician: Brianna Alcaraz APRN Date of Service: 12/26/24 Procedure(s): XR foot LT min 3V Accession Number(s): [id number] cc: Kage, Brianna M. STEREOTYPE CASTER; DOUGHNUT MACHINE OPERATOR PHYSICIAN~ XR foot LT min 3V Ordering provider: Brianna Alcaraz APRN History: . fell off ladder, LATERLA FOOT PAIN . Comparison: None. FINDINGS: BONES: No definite acute fracture or dislocation. Bony fragment seen near to the proximal phalanx of the little toe. Possibility of a fracture osteophyte cannot be excluded. Postoperative changes in the proximal phalanx of the big toe. JOINT SPACES: Narrowing of the proximal and distal interphalangeal joints. No tarsal coalition. Old healed fracture is seen in the distal fibula. Fragments near to the navicular bone most likely old fracture. SOFT TISSUES: Soft tissue ossification seen between the fourth and fifth metatarsal bones. IMPRESSION: No definite acute osseous abnormality left foot. Possibly a fracture osteophyte at the base of the proximal phalanx of the little toe is not excluded. Discharge Plan Discharge Clinical Impression: Acute pain of left foot Patient Disposition: Home Condition: Stable Instructions: Foot Sprain (ED) Additional Instructions: Rest and elevate the left leg; bear weight as tolerated. Wear the post op shoe while walking Apply ice 15-20 minute intervals several times a day Keep it wrapped with HASEEB or use a soft ankle splint Motrin 800mg every 8 hours, alternate with Tylenol 1000mg every 8 hours as needed Follow up with your primary care provider and perforator operator as needed Go to the ER for worsening symptoms or concerns Patient Language: Macanese Prescriptions: No Action bupropion HCl 300 mg tablet extended release 24 hr 300 mg PO DAILY levothyroxine [Synthroid] 75 mcg tablet 75 mcg PO DAILY cyclobenzaprine 10 mg tablet 5 mg PO Q12H meloxicam 7.5 mg tablet 7.5 mg PO .QOD Centrum 18-400 mg-mcg tablet 1 tablet PO DAILY quetiapine 100 mg tablet 100 mg PO DAILY omeprazole 20 mg capsule,delayed release(DR/EC) 20 mg PO BID quetiapine 50 mg tablet 50 mg PO DAILY buspirone 10 mg Tablet 10 mg PO TID cholecalciferol (vitamin D3) 125 mcg (5,000 unit) capsule 125 mcg PO DAILY calcium citrate 200 mg (950 mg) tablet 600 mg PO BID hydroxyzine HCl 50 mg Tablet 50 mg PO QID gabapentin 800 mg Tablet 800 mg PO QID carvedilol 6.25 mg tablet 6.25 mg PO BID Follow-up/Referrals: PHYSICIAN,DOUGHNUT MACHINE OPERATOR [Primary Care Provider] - Time of Disposition: 15:41
== END 2024-12-26 15:43 | disposition home or self-care (01) ==
PROVIDERS: Emergency Provider Nurse Practitioner Family
DX: M79.672 Pain in left foot (principal); I10 Essential (primary) hypertension; K21.9 Gastro-esophageal reflux disease without esophagitis; M19.90 Unspecified osteoarthritis, unspecified site; G62.9 Polyneuropathy, unspecified; F41.9 Anxiety disorder, unspecified; F32.A Depression, unspecified; Z86.14 Personal history of Methicillin resistant Staphylococcus aureus infection
CPT/HCPCS: 73630; 99213; G0463

== ENCOUNTER 2025-01-03 09:43 | Outpatient (CLI) | payer MEDICARE, MEDICAID, SELFPAY ==
--- NOTE | ~2025-01-03 | XR_ITS ---
XR knee LT min 4V Ordering provider: Dwight Sharma MD History: . M25.562 - Pain in left knee . Comparison: None. FINDINGS: BONES: No acute fracture or dislocation. JOINT SPACES: Narrowing of the medial compartment with marginal osteophytes in the knee and patella. SOFT TISSUES: Normal. IMPRESSION: No acute osseous abnormality left knee. Severe osteoarthritic changes. Reviewed, dictated and finalized at location A.
--- OUTSIDE RECORDS SUMMARY | 2025-01-03 10:25 | XMS_ITS ---
Author Organization [facility] Address [facility] [place] [address] Care Team Providers Care Automotive Service Advisor Name Role Phone Corey Mortensen DO Unavailable [phone] Adis Lloyd MD Primary Care Provider [phone] Active Problems Problem Noted Date Diagnosed Date [...]
--- OUTSIDE RECORDS SUMMARY | 2025-01-03 10:25 | XMS_ITS | Encounter Summary ---
Author Organization [facility] Address [address] [facility] [address] Phone Care Team Providers Care Optimization Analyst Name Role Phone Adis Lloyd MD Primary Care Provider [phone] Corey Mortensen DO Unavailable [phone] Adis Lloyd MD Primary Care Provider [phone] Encounter Details Date Type Department Care Team (Latest Contact Info) Description 11/16/2012 Orders Only [facility] Scanning, Provider Social History Tobacco Use Types Packs/Day Years Used Date Smoking Tobacco: Never Assessed Comments Unknown Sex and Gender Information Value Date Recorded Sex Assigned at Not on file Legal 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
--- OUTSIDE RECORDS SUMMARY | 2025-01-03 10:25 | XMS_ITS | Clinical Summary ---
Author Organization [facility] Address [address] [place] [address] Phone Care Team Providers Care Veterinary Inspector Name Role Phone Adis Lloyd MD Primary Care Provider [phone] Allergies Active Allergy Reactions Criticality Noted Date [...] Comments Blood Pressure 123/84 07/24/2020 1:52 PM [facility] Pulse 93 07/24/2020 1:52 PM [facility] Temperature 36.1 C (97 F) 07/24/2020 1:38 PM [facility] Respiratory Rate 16 07/24/2020 1:52 PM [facility] Oxygen Saturation 99% 07/24/2020 1:52 PM [facility] Inhaled Oxygen Concentration - - Weight 131.1 kg (289 lb) 07/24/2020 12:17 PM [facility] Height 170.2 cm (5' 7 ) 07/24/2020 12:17 PM [facility] Body Mass Index 45.26 07/24/2020 12:17 PM [facility] Plan of Treatment Health Maintenance Due Date [...] Comments COLONOSCOPY REPORT 07/24/2020 1: 38 PM [facility] from Last 3 Months or Most Recently Relevant to Health Maintenance Results * COLONOSCOPY REPORT (07/24/2020 1:38 PM [facility]) Narrative Procedure Note Brady Orozco MD - 07/24/2020 1:37 PM CST [facility] Endoscopy Patient Name: Monica Rolon Procedure [...] of Addenda: [address]; [place] [address] Brady Orozco MD GI PROCEDURE ORDERABLES Angela l Result from Last 3 Months or Most Recently Relevant to Health Maintenance Insurance MEDICAID [facility] [id number] Advance Directives For more information, please contact: [phone] * Full Code (Latest Code Status on File) Date Activated Date Inactivated Comments 07/24/2020 12:16 PM 07/24/2020 5:03 PM Care Teams Veterinary Inspector Relationship Specialty Start Date End Date Adis Lloyd MD PCP - General Student in an Organized Health Care Education/Training Program 06/20/20
--- OUTSIDE RECORDS SUMMARY | 2025-01-03 10:25 | XMS_ITS | Referral Summary ---
Author Organization [facility] Address [address] [place] [id number] Care Team Providers Care Medicare Sales Representative Name Role Phone Corey Mortensen DO Unavailable [phone] Adis Lloyd MD Primary Care Provider [phone] Encounters Date Type Department Care Team Description 12/17/2024 Telephone [facility] [address] [place] [address] Health 4th Floor [address] [place] [address] Gudelia Santos Additional Services Or Orders 12/16/2024 12:25 PM CDT Lab [facility] Outpatient Lab [address] [place] [address] Peripheral neuropathy, idiopathic; Mild cognitive impairment; Memory changes; Abnormality of gait due to impairment of balance; Encounter for screening for cardiovascular disorders; Encounter for screening for diabetes mellitus 12/16/2024 12:45 PM CDT - 12/16/2024 11:59 PM CDT Hospital Encounter [facility] - Imaging [address] [place] [address] Peripheral neuropathy, idiopathic; Mild cognitive impairment; Memory changes; Abnormality of gait due to impairment of balance Discharge Disposition: Discharge to home or self care 12/14/2024 Telephone [facility]ally In[facility] [address] [facility] [address] [place] [address] Rehana Beebe RN 11/04/2024 1:45 PM MANUFACTURING BUSINESS ANALYST Office Visit [facility] [address] [facility] [address] [place] [address] Adam David MD Peripheral neuropathy, idiopathic (Primary Dx); Mild cognitive impairment; Memory changes; Abnormality of gait due to impairment of balance; Encounter for screening for cardiovascular disorders; Encounter for screening for diabetes mellitus 10/08/2024 12:15 PM MANUFACTURING BUSINESS ANALYST Office Visit [facility] [address] [facility] [address] [place] [address] Olaf Pascual MD Status post cervical spinal fusion [Z98.1] (Primary Dx) from Last 3 Months Allergies Active Allergy [...] 1 tablet (75 mcg total) by mouth academic dean before breakfast Active buPROPion XL (WELLBUTRIN XL) [...] times a day 360 tablet 3 4 Active diazePAM (VALIUM) 5 mg tablet Take [...] Trivalent, IM (MDV) 09/30/2016 Influenza, Unspecified 07/27/2019 Keko SARS-CoV-2 Monovalent Vaccination (12+ Yrs) PURPLE 02/07/2021,01/15/2021 Pneumococcal Polysaccharide PPV23 02/22/2019 Tdap 11/02/2009 Social History Tobacco Use Types Packs/Day Years Used Date Smoking Tobacco: Never Smokeless Tobacco: Never Tobacco Cessation:Counseling Given: Not Answered Alcohol Use Standard Drinks/Week Comments Yes 7 (1 standard drink = 0.6 oz pur e alcohol) [facility] Utilities Answer Date Recorded In [...] often do you attend chur ch or sabianist services? Never 04/21/2024 Do you belong to any clubs o r organizations such as hindu groups, unions, fraternal or athletic groups, or [...] any time in the past 12 m [facility], were you homeless or living in a [...] on file Legal Sex Female 9:40 PM MANUFACTURING BUSINESS ANALYST Gender Identity Female 05/07/2022 3:54 PM CDT Sexual Orientation Straight 05/07/2022 3: 54 PM CDT Occupation Industry Job Start Date Job End Date Disabled Not on file Not on file Not on file Last Filed Vital Signs Vital Sign Reading Time Taken Comments Blood Pressure 140/94 11/04/2024 1:29 PM MANUFACTURING BUSINESS ANALYST Pulse 93 11/04/2024 1:29 PM MANUFACTURING BUSINESS ANALYST Temperature 36.6 C (97.9 F) 11/04/2024 1:29 PM MANUFACTURING BUSINESS ANALYST Respiratory Rate 17 11/04/2024 1:29 PM MANUFACTURING BUSINESS ANALYST Oxygen Saturation 98% 11/04/2024 1:29 PM MANUFACTURING BUSINESS ANALYST Inhaled Oxygen Concentration - - Weight 118.8 kg (261 lb 12.8 oz) 2024 12:30 PM MANUFACTURING BUSINESS ANALYST Height 167.6 cm (5' 6 ) 09/23/2024 12:3 0 PM MANUFACTURING BUSINESS ANALYST Body Mass Index 42.26 09/23/2024 12:30 PM MANUFACTURING BUSINESS ANALYST Plan of Treatment Not on file Medical Devices Implanted Type Area Parks And Recreation Worker Device Identifier Shelf Expiration Date Model / Serial / Lot Med[employer]onic Inc Graft Bone Filler Jar Enrique 6cc Putty [id number] - [id number] - [id number] Implanted:Qty: 1 on 04/20/2024 by Olaf Pascual MD at [facility] N/A: Spine Cervical Med[employer]onic Inc 01/09/2026 [id number] / [id number] / Medtronic Inc Cage Spn Med 6d Acif Endoskeleton Tcs Nanolock [id number] [id number]-[id number] - [id number] Implanted:Qty: 1 on 04/20/2024 by Olaf Pascual MD at [facility] N/A: Spine Cervical Med[employer]onic Inc 05/22/2028 [id number] / / [id number] Med[employer]onic Inc Cage Spn Med 6d Acif Endoskeleton Tcs Nanolock [id number] - [id number] Implanted:Qty: 1 on 04/20/2024 by Olaf Pascual MD at [facility] N/A: Spine Cervical Med[employer]onic Inc 03/27/2028 [id number] / / [id number] Med[employer]onic Inc Zevo 37mm 2 Level Spine Cervical Anterior Plate Bone Titanium [id number] - [id number] Implanted:Qty: 1 on 04/20/2024 by Olaf Pascual MD at [facility] N/A: Spine Cervical Med[employer]onic Inc [id number] / / Med[employer]onic Inc Zevo 3.5mm 17mm Variable Self Drill Spine Cervical Anterior Screw [id number] - [id number] Implanted:Qty: 2 on 04/20/2024 by Olaf Pascual MD at [facility] N/A: Spine Cervical Med[employer]onic Inc [id number] / / Med[employer]onic Inc Zevo 3.5mm 15mm Variable Self Drill Spine Cervical Anterior Screw [id number] - [id number] Implanted:Qty: 2 on 04/20/2024 by Olaf Pascual MD at [facility] N/A: Spine Cervical Med[employer]onic Inc [id number] / / Med[employer]onic Inc Screw Spinal Anterior Cervical Self Drilling Solid Zevo 4.0x17mm Titanium [id number] - [id number] Implanted:Qty: 2 on 04/20/2024 by Olaf Pascual MD at [facility] N/A: Spine Cervical Med[employer]onic Inc [id number] / / Med[employer]onic Inc Generator Pulse Inceptiv Sys Stm Electrcl Analges Implant [id number] - [id number] - [id number] Implanted:Qty: 1 on 08/04/2024 by Olaf Pascual MD at [facility] Spine Thoracic Medtronic Inc 07/15/2025 [id number] / [id number] / Medtronic Inc Specify Surescan 65cm 3 Column 16 Electrode Lead Nerve Stimulator [id number] - [id number] Implanted:Qty: 1 on 08/04/2024 by Olaf Pascual MD at [facility] Spine Thoracic Med[employer]onic Inc [id number] / / [id number] Explanted Type Area Parks And Recreation Worker Device Identifier Shelf Expiration Date Model / Serial / Lot Medtronic Inc Vectris 5mm 60cm 1x8 Electrode Mri Lead Neurostimulator [id number] - [id number] Explanted:Qty: 1 on 10/28/2023 at [facility] N/A: Thoracic- Lumbar Spine Med[employer]onic Inc 09/30/2027 [id number] / / [id number] Procedures Procedure Name Priority Date/Time Associated Diagnosis Comments MRI BRAIN AND VOLUMETRIC W WO CONTRAST Schedule Routine, Read Routine (OP Routine) 12/16/2024 2:59 PM CDT Peripheral neuropathy, idiopathic Mild cognitive impairment Memory changes Abnormality of gait due to impairment of balance HEMOGLOBIN A1C Routine 12/16/2024 1:30 PM CDT Peripheral neuropathy, idiopathic Mild cognitive impairment Memory changes Abnormality of gait due to impairment of balance Encounter for screening for diabetes mellitus THYROID FUNCTION CASCADE Routine 12/16/2024 12:57 PM CDT Peripheral neuropathy, idiopathic Mild cognitive impairment Memory changes Abnormality of gait due to impairment of balance IMMUNOGLOBULIN FREE LIGHT CHAINS Routine 12/16/2024 12:57 PM CDT Peripheral neuropathy, idiopathic Mild cognitive impairment Memory changes Abnormality of gait due to impairment of balance PROTEIN ELECTROPHORESIS, WITH REFLEX, SERUM Routine 12/16/2024 12:57 PM CDT Peripheral neuropathy, idiopathic Mild cognitive impairment Memory changes Abnormality of gait due to impairment of balance ZINC Routine 12/16/2024 12:57 PM CDT Peripheral neuropathy, idiopathic Mild cognitive impairment Memory changes Abnormality of gait due to impairment of balance COPPER, SERUM Routine 12/16/2024 12:57 PM CDT Peripheral neuropathy, idiopathic Mild cognitive impairment Memory changes Abnormality of gait due to impairment of balance VITAMIN B6 Routine 12/16/2024 12:57 PM CDT Peripheral neuropathy, idiopathic Mild cognitive impairment Memory changes Abnormality of gait due to impairment of balance METHYLMALONIC ACID, SERUM Routine 12/16/2024 12:57 PM CDT Peripheral neuropathy, idiopathic Mild cognitive impairment Memory changes Abnormality of gait due to impairment of balance VITAMIN B12 Routine 12/16/2024 12:57 PM CDT Peripheral neuropathy, idiopathic Mild cognitive impairment Memory changes Abnormality of gait due to impairment of balance VITAMIN E Routine 12/16/2024 12:57 PM CDT Peripheral neuropathy, idiopathic Mild cognitive impairment Memory changes Abnormality of gait due to impairment of balance FOLATE Routine 12/16/2024 12:57 PM CDT Peripheral neuropathy, idiopathic Mild cognitive impairment Memory changes Abnormality of gait due to impairment of balance VITAMIN B1 Routine 12/16/2024 12:53 PM CDT Peripheral neuropathy, idiopathic Mild cognitive impairment Memory changes Abnormality of gait due to impairment of balance DIAGNOSTIC MAMMOGRAM BILATERAL W JOEY W IMPLANTS Schedule Routine, Read Routine (OP Routine) 05/08/2022 11:14 AM CDT Abnormal mammography from Last 3 Months or Most Recently Relevant to Health Maintenance Results * MRI Brain and Volumetric W WO Contrast (12/16/2024 2:59 PM CDT) Anatomical Region Laterality Modality Head and Neck N/A Magnetic Resonan ce 12/17/2024 7:14 AM CDT Impressions 12/17/2024 8:38 AM CDT 1. Intracranial volumes are within normal limits for patient's age. 2. Total cerebral microhemorrhages: None. New/incident cerebral microhemorrhages: None. 3. Superficial siderosis is not detected. Dictated by: Marco Rios M.D. The radiology attending physician has personally reviewed this study, and had reviewed and/or edited this written report and agrees with it. Electronically signed by: Jabier Rivas MD Narrative 12/17/2024 8:38 AM CDT EXAMINATION: Magnetic resonance imaging (MRI) of the brain and brainstem without and with contrast HISTORY: 64 years-old Female with progressive short-term and procedural memory impairment, compared activity is of daily living, difficulty word finding. TECHNIQUE: Multiplanar multi-weighted MRI of the brain and brainstem was performed without and with intravenous contrast using a protocol specific to assess patients with memory complaints. T1-weighted sagittal MPRage images of the brain were postprocessed on PEVESA to generate segmented brain volumes using commercial software. Results were compared to 10th and 90th percentiles of healthy age-/gender-matched population. Graphs were sent to [facility] and [facility] PACS. The protocol specifically includes FLAIR to assess for potential infarcts and white matter lesions associated with vascular cognitive impairment and with susceptibility sensitive sequences for detection of cerebral microhemorrhages. Contrast information: 20 mL Gadoterate Meglumine IV COMPARISON: None Available. FINDINGS: The scalp and calvarium are normal. The superior sagittal sinus demonstrates normal venous flow. The corpus callosum is normal in shape and signal intensity. The posterior fossa is unremarkable. The pituitary and sella are normal. The brainstem and craniocervical junction are unremarkable. Diffusion weighted images reveal no hyperintensities to suggest acute cerebral infarction. The susceptibility weighted sequences reveal no evidence of acute or chronic hemorrhage. The ventricles are normal in size and position without evidence of hydrocephalus. The paranasal sinuses are normal. The visualized portions of the mastoids are unremarkable. The orbits appear normal. Normal flow voids are demonstrated in the carotid arteries and basilar artery. There is no abnormal contrast enhancement. QUANTITATIVE ASSESSMENT: Assessment of hippocampal volumes: Quantitative assessment was performed using Can[employer] and is reported. Total intracranial volume (TIV): 1360.5 ml Brain: 1023.5 ml, 75.2% of TIV, 10%-90% range of 69.5-77.5, within 10th-90th percentile. Galeano matter: 625.9 ml, 46.0% of TIV, 10%-90% range of 41.1-47.7, within 10th-90th percentile. White matter: 397.6 ml, 29.2% of TIV, 10%-90% range of 26.5-31.9, within 10th-90th percentile. Ventricles: 16.2 ml, 1.19% of TIV, 10%-90% range of 1.34-3.65, below the 10th percentile Hippocampus Left: 3.3 ml, 0.24% of TIV, 10%-90% range of 0.19-0.25, within 10th-90th percentile. Right: 2.9 ml, 0.21% of TIV, 10%-90% range of 0.19-0.25, within 10th-90th percentile. QUALITATIVE ASSESSMENT: Small infarcts (< 15 mm): None. Infarcts (>15 mm): No. White matter hyperintensities (Fazekas grade): Mild/Fazekas 1: Multiple punctate lesions. Prior cerebral microhemorrhages: No prior exam is available to allow for adequate comparison. New/incident cerebral microhemorrhages: There are no new MCH. Total cerebral microhemorrhages: There are no MCH. Prior siderosis: no prior exam available for adequate comparison. New/incident siderosis: None. Procedure Note Jabier Rivas MD PhD - 12/17/2024 EXAMINATION: Magnetic resonance imaging (MRI) of the brain and brainstem without and with contrast HISTORY: 64 years-old Female with progressive short-term and procedural memory impairment, compared activity is of daily living, difficulty word finding. TECHNIQUE: Multiplanar multi-weighted MRI of the brain and brainstem was performed without and with intravenous contrast using a protocol specific to assess patients with memory complaints. T1-weighted sagittal MPRage images of the brain were postprocessed on [employer] to generate segmented brain volumes using commercial software. Results were compared to 10th and 90th percentiles of healthy age-/gender-matched population. Graphs were sent to [facility] and [facility] PACS. The protocol specifically includes FLAIR to assess for potential infarcts and white matter lesions associated with vascular cognitive impairment and with susceptibility sensitive sequences for detection of cerebral microhemorrhages. Contrast information: 20 mL Gadoterate Meglumine IV COMPARISON: None Available. FINDINGS: The scalp and calvarium are normal. The superior sagittal sinus demonstrates normal venous flow. The corpus callosum is normal in shape and signal intensity. The posterior fossa is unremarkable. The pituitary and sella are normal. The brainstem and craniocervical junction are unremarkable. Diffusion weighted images reveal no hyperintensities to suggest acute cerebral infarction. The susceptibility weighted sequences reveal no evidence of acute or chronic hemorrhage. The ventricles are normal in size and position without evidence of hydrocephalus. The paranasal sinuses are normal. The visualized portions of the mastoids are unremarkable. The orbits appear normal. Normal flow voids are demonstrated in the carotid arteries and basilar artery. There is no abnormal contrast enhancement. QUANTITATIVE ASSESSMENT: Assessment of hippocampal volumes: Quantitative assessment was performed using CanDi[employer] and is reported. Total intracranial volume (TIV): 1360.5 ml Brain: 1023.5 ml, 75.2% of TIV, 10%-90% range of 69.5-77.5, within 10th-90th percentile. Galeano matter: 625.9 ml, 46.0% of TIV, 10%-90% range of 41.1-47.7, within 10th-90th percentile. White matter: 397.6 ml, 29.2% of TIV, 10%-90% range of 26.5-31.9, within 10th-90th percentile. Ventricles: 16.2 ml, 1.19% of TIV, 10%-90% range of 1.34-3.65, below the 10th percentile Hippocampus Left: 3.3 ml, 0.24% of TIV, 10%-90% range of 0.19-0.25, within 10th-90th percentile. Right: 2.9 ml, 0.21% of TIV, 10%-90% range of 0.19-0.25, within 10th-90th percentile. QUALITATIVE ASSESSMENT: Small infarcts (< 15 mm): None. Infarcts (>15 mm): No. White matter hyperintensities (Fazekas grade): Mild/Fazekas 1: Multiple punctate lesions. Prior cerebral microhemorrhages: No prior exam is available to allow for adequate comparison. New/incident cerebral microhemorrhages: There are no new MCH. Total cerebral microhemorrhages: There are no MCH. Prior siderosis: no prior exam available for adequate comparison. New/incident siderosis: None. IMPRESSION: 1. Intracranial volumes are within normal limits for patient's age. 2. Total cerebral microhemorrhages: None. New/incident cerebral microhemorrhages: None. 3. Superficial siderosis is not detected. Dictated by: Marco Rios M.D. The radiology attending physician has personally reviewed this study, and had reviewed and/or edited this written report and agrees with it. Electronically signed by: Jabier Rivas MD Adam David MD IMG MRI PROCEDURES Final R esult * Hemoglobin A1c (12/16/2024 1:30 PM CDT) [facility] Hgb A1C 5.1 4.0 - 5.6 % Estimated Average Glucose 100 mg/dL [facility] Comment: The ADA recommends reporting an estimated Average Glucose (eAG) with all Hemoglobin A1c results using the equation derived from a study of 507 normal and diabetic adults. Minority populations were underrepresented and children were not included. (Diabetes Care 31:7197-1832, 2008). The eAG is not equivalent to a fasting glucose. Blood 12/16/2024 1:30 PM CDT 12/16/2024 1:40 PM CDT Adam David MD LAB BLOOD ORDERABLES Final Result [facility] [address] Department [place] [address] * (ABNORMAL) Immunoglobulin free light chains (12/16/2024 12:57 PM CDT) [facility] Pettus/Lambda ratio BJ 1.11 0.26 - 1.65 Comment: Interpretive Data The Binding Site FreeLite assay procedure was used. Results from different manufacturers or methods may not be comparable. Serial testing should be performed using the same methods and instrumentation. Current Interpretive Data was last revised on 2023. Testing performed by: [facility], [address] [place]., [address] Pettus free light chain BJH 2.53(H) 0.33 - 1.94 mg/dL [facility] Comment: Interpretive Data The Binding Site FreeLite assay procedure was used. Results from different manufacturers or methods may not be comparable. Serial testing should be performed using the same methods and instrumentation. Current Interpretive Data was last revised on 2023. Testing performed by: [facility], [address] [place]., [address] Lambda free light chain BJH 2.27 0.57 - 2.63 mg/dL [facility] Comment: Interpretive Data The Binding Site FreeLite assay procedure was used. Results from different manufacturers or methods may not be comparable. Serial testing should be performed using the same methods and instrumentation. Current Interpretive Data was last revised on 2023. Testing performed by: [facility], [address] [place]., [address] Blood 12/16/2024 12:5 7 PM CDT 12/16/2024 4:26 PM CDT Adam David MD LAB BLOOD ORDERABLES Final Result Performing Organization Address City/[facility] Co de Phone Number [facility] [address] [employer] [place], [place] [id number] * Thyroid Function [place] (12/16/2024 12:57 PM CDT) TSH 0.82 0.30 - 4.20 mcIUnit/mL Blood 12/16/2024 12:5 7 PM CDT 12/16/2024 1:16 PM CDT Adam David MD LAB BLOOD ORDERABLES Final Result Performing Organization Address [facility] Co de Phone Number [facility] [address] Department [employer] [place], [place] [phone] * Methylmalonic acid, serum (12/16/2024 12:57 PM CDT) MMA 0.35 <=0.40 nmol/mL [facility] Comment: ADDITIONAL INFORMATION This test was developed and its performance characteristics determined by [facility] in a manner consistent with CLIA requirements. This test has not been cleared or approved by the U.S. Food and Drug Administration. Test Performed by: [facility] - [address] [address] Acidity Tester: Stephen Ball Ph.D.; CLIA# [id number] Blood 12/16/2024 12:5 7 PM CDT 12/16/2024 1:16 PM CDT Adam David MD LAB BLOOD ORDERABLES Final Result Performing Organization Address [facility] Co de Phone Number [facility] [address] [place] [address] [facility] * Copper, serum (12/16/2024 12:57 PM CDT) [facility] Copper 99 77 - 206 mcg/dL [facility] Comment: ADDITIONAL INFORMATION This test was developed and its performance characteristics determined by [facility] in a manner consistent with CLIA requirements. This test has not been cleared or approved by the U.S. Food and Drug Administration. Test Performed by: [facility] - [facility] [address] [place] [address] Acidity Tester: Stephen Ball Ph.D.; CLIA# [id number] Blood 12/16/2024 12:5 7 PM CDT 12/16/2024 1:16 PM CDT Adam David MD LAB BLOOD ORDERABLES Final Result Performing Organization Address [facility]/ZIP Co de Phone Number [facility] [address] [place] [address] [place] ref [facility] * (ABNORMAL) Zinc (12/16/2024 12:57 PM CDT) Zinc 44(L) 60 - 106 mcg/dL [place] [facility] Comment: ADDITIONAL INFORMATION This test was developed and its performance characteristics determined by [facility] in a manner consistent with CLIA requirements. This test has not been cleared or approved by the U.S. Food and Drug Administration. Test Performed by: [facility] [place] [address] Acidity Tester: Stephen Ball Ph.D.; CLIA# [id number] Blood 12/16/2024 12:5 7 PM CDT 12/16/2024 1:16 PM CDT Adam David MD LAB BLOOD ORDERABLES Final Result Performing Organization Address City/State/[facility] Co de Phone Number [facility] [address] Department [place] [address] [place] ref [facility] * Vitamin E (12/16/2024 12:57 PM CDT) Pathologist [facility] Tocopherol (Vit E) 5.6 5.5 - 17.0 mg/L [place] ref [facility] Comment: ADDITIONAL INFORMATION This test was developed and its performance characteristics determined by [facility] in a manner consistent with CLIA requirements. This test has not been cleared or approved by the U.S. Food and Drug Administration. Test Performed by: [facility] - [address] [address] Acidity Tester: Stephen Ball Ph.D.; CLIA# [id number] Blood 12/16/2024 12:5 7 PM CDT 12/16/2024 1:54 PM CDT Adam David MD LAB BLOOD ORDERABLES Final Result Performing Organization Address City/[facility]/ZIP Co de Phone Number [facility] [address] Department [employer] [place], [place] [phone] [place] ref [facility] * Vitamin B6 (12/16/2024 12:57 PM CDT) [facility] Pyridoxal phosphate (Vit B6) 9 5 - 50 mcg/L [facility] Comment: ADDITIONAL INFORMATION This test was developed and its performance characteristics determined by [facility] in a manner consistent with CLIA requirements. This test has not been cleared or approved by the U.S. Food and Drug Administration. Test Performed by: [address] [address] Acidity Tester: Stephen Ball Ph.D.; CLIA# [id number] Blood 12/16/2024 12:5 7 PM CDT 12/16/2024 1:32 PM CDT Adam David MD LAB BLOOD ORDERABLES Final Result Performing Organization Address [facility] Co de Phone Number [facility] [address] [place] [address] [place] ref [facility] * Protein electrophoresis with reflex, serum with interpretation (12/16/2024 12:57 PM CDT) [facility] Protein, sr 6.6 6.2 - 8.2 g/dL Albumin 3.9 3.2 - 5.0 g/dL [facility] Alpha-1 globulin 0.4 0.2 - 0.4 g/dL [facility] Alpha-2 globulin 0.7 0.5 - 1.0 g/dL [facility] Beta-1 globulin 0.4 0.3 - 0.6 g/dL [facility] Beta-2 globulin 0.3 0.2 - 0.6 g/dL [facility] Gamma globulin 0.9 0.5 - 1.7 g/dL [facility] SPEP interp See Comment [facility] Comment:SPEP INTERPRETATION: No apparent monoclonal peak Blood 12/16/2024 12:5 7 PM CDT 12/16/2024 1:20 PM CDT Adam David MD LAB BLOOD ORDERABLES Final Result Performing Organization Address [facility] Co de Phone Number [facility] [address] [facility] [place] [address] * Folate (12/16/2024 12:57 PM CDT) [facility] Folic acid >40.0 >=5.0 ng/mL Blood 12/16/2024 12:5 7 PM CDT 12/16/2024 1:16 PM CDT Adam David MD LAB BLOOD ORDERABLES Final Result Performing Organization Address [facility] Co de Phone Number [facility] [address] [place] [address] * Vitamin B12 (12/16/2024 12:57 PM CDT) [facility] Vitamin B12 711 230 - 1,250 pg/mL Blood 12/16/2024 12:5 7 PM CDT 12/16/2024 1:16 PM CDT Adam David MD LAB BLOOD ORDERABLES Final Result Performing Organization Address [facility] Co de Phone Number [facility] [address] Department [facility] [place] [address] * (ABNORMAL) Vitamin B1 (12/16/2024 12:53 PM CDT) Pathologist [facility] Thiamine (Vit B1) 484(H) 70 - 180 nmol/L [place] [facility] Comment: ADDITIONAL INFORMATION This test was developed and its performance characteristics determined by [facility] in a manner consistent with CLIA requirements. This test has not been cleared or approved by the U.S. Food and Drug Administration. Test Performed by: [facility] [address] [place] [address] Acidity Tester: Stephen Ball Ph.D.; CLIA# [id number] Blood 12/16/2024 12:5 3 PM CDT 12/16/2024 1:23 PM CDT us Adam David MD LAB BLOOD ORDERABLES Final Result [facility] [address] Department [place] [address] [place] [facility] * Diagnostic Mammogram Bilateral w Joey w [...] Recently Relevant to Health Maintenance Insurance IDPA [facility] MEDICARE ADVANTAGE [facility] MDCR HMO REF IDPA IDPA [facility] MEDICARE ADVANTAGE Advance Directives For more information, please contact: [phone] * Full Code (Latest Code Status on File) Date Activated Date Inactivated Comments 04/20/2024 1:08 PM 04/21/2024 7:29 PM Care Teams Medicare Sales Representative Relationship Specialty Start Date End Date Adis Lloyd MD 9 [facility] DEPT [place] [address] PCP - General 11/09/19 Corey Mortensen DO [address] [place] [id number] Medical Oncologist/Hematologis t Hematology and Oncology 09/09/18
--- OUTSIDE RECORDS SUMMARY | 2025-01-03 10:26 | XMS_ITS | Clinical Summary ---
Author Organization [facility] Address [address] [place] [address] Care Team Providers Care Agricultural Economist Name Role Phone Corey Mortensen DO Unavailable [phone] Adis Lloyd MD Primary Care Provider [phone] Allergies Active Allergy Reactions Criticality Noted Date [...] 1 tablet (75 mcg total) by mouth wheat cleaner before breakfast Active buPROPion XL (WELLBUTRIN XL) [...] Team Description 12/17/2024 Telephone [facility] [address] [facility] 4th Floor [address] [place] [address] Gudelia Santos Additional Services Or Orders 12/16/2024 12:45 PM CDT - 12/16/2024 11:59 PM CDT Hospital Encounter [facility] - Imaging [address] [place] [address] Peripheral neuropathy, idiopathic; Mild cognitive impairment; Memory changes; Abnormality of gait due to impairment of balance Discharge Disposition: Discharge to home or self care 12/16/2024 12:25 PM CDT Lab [facility] Outpatient Lab [address] [place] [phone] Peripheral neuropathy, idiopathic; Mild cognitive impairment; Memory changes; Abnormality of gait due to impairment of balance; Encounter for screening for cardiovascular disorders; Encounter for screening for diabetes mellitus 12/14/[address] [facility]ally In[facility] [address] [facility] [address] [place] [phone] Rehana Beebe RN 11/04/2024 1:45 PM TRANSFORMER INSPECTOR Office Visit [facility] [id number] [place] [address] [address] [place] [phone] Adam David MD Peripheral neuropathy, idiopathic (Primary Dx); Mild cognitive impairment; Memory changes; Abnormality of gait due to impairment of balance; Encounter for screening for cardiovascular disorders; Encounter for screening for diabetes mellitus 10/08/2024 12:15 PM TRANSFORMER INSPECTOR Office Visit [facility] [address] [facility] [address] [place] [address] Olaf Pascual MD Status post cervical spinal fusion [Z98.1] (Primary Dx) from Last 3 Months Immunizations Immunization Administration [...] Diabetes Brother 2 Landon Hypertension Brother 2 Alndon Osteoarthritis Brother 2 Landon Diabetes Brother 3 [...] drink = 0.6 oz pur e alcohol) [facility] Utilities Answer Date Recorded In the past 12 months has e Lootsie, gas, oil, or water Hospital[facility] Now threatened to shut off services in your [...] often do you attend chur ch or episcopal services? Never 04/21/2024 Do you belong to any clubs o r organizations such as caodaism groups, unions, fraternal or athletic groups, or [...] any time in the past 12 [facility], were you homeless or living in a custodial (including now)? No 04/21/2024 Personal Safety Answer Date Recorded Have you ever been in or are you currently in a harmful physical or emotional relationship or is someone making you feel afraid or unsafe? Denies 08/04/2024 Comments No Sex and Gender Information Value Date Recorded Sex Assigned at Not on file Legal Sex Female 9:40 PM TRANSFORMER INSPECTOR Gender Identity Female 05/07/2022 3:54 PM CDT Sexual Orientation Straight 05/07/2022 3: 54 PM CDT Occupation Industry Job Start Date Job End Date Disabled Not on file Not on file Not on file Obstetrics History Last Filed Vital Signs Vital Sign Reading Time Taken Comments Blood Pressure 140/94 11/04/2024 1:29 PM TRANSFORMER INSPECTOR Pulse 93 11/04/2024 1:29 PM TRANSFORMER INSPECTOR Temperature 36.6 C (97.9 F) 11/04/2024 1:29 PM TRANSFORMER INSPECTOR Respiratory Rate 17 11/04/2024 1:29 PM TRANSFORMER INSPECTOR Oxygen Saturation 98% 11/04/2024 1:29 PM TRANSFORMER INSPECTOR Inhaled Oxygen Concentration - - Weight 118.8 kg (261 lb 12.8 oz) 2024 12:30 PM TRANSFORMER INSPECTOR Height 167.6 cm (5' 6 ) 09/23/2024 12:3 0 PM TRANSFORMER INSPECTOR Body Mass Index 42.26 09/23/2024 12:30 PM TRANSFORMER INSPECTOR Plan of Treatment Health Maintenance Due Date Last Done Comments Cervical Cancer Screening 1961 Colon Cancer Screening-Colonoscopy 1961 Depression Screening 1961 Hepatitis C Screening 1961 Regular Well Visit/Exam 18-64 1979 Zoster Vaccine (1 of 2) 2011 Covid-19 Vaccine ( season) 2024 02/07/2021, 01/15/2021 Breast Cancer Screening-Mammogram 09/30/2024 09/30/2023, 05/08/2022, 04/25/2021, Additional history exists DTaP/Tdap/Td Vaccine (3 - Td or Tdap) 06/22/2034 06/22/2024, 11/02/2009 Hepatitis B Screening Completed 07/20/2018 , 09/23/2017, 07/09/2017 Pneumococcal vaccine <65 Aged Out 02/22/2019 No longer eligible based on patient's age to complete this topic Influenza Vaccine Completed 06/22/2024, , 05/31/2021, Additional history exists Medical Devices Implanted Type Area Petroleum Inspector Device Identifier Shelf Expiration Date Model / Serial / Lot Med[employer]onic Inc Graft Bone Filler Jar Enrique 6cc Putty [id number] - [id number] - [id number] Implanted:Qty: 1 on 04/20/2024 by Olaf Pascual MD at [facility] N/A: Spine Cervical [employer] Inc 01/09/2026 [id number] / [id number] / Med[employer]onic Inc Cage Spn Med 6d Acif Endoskeleton Tcs Nanolock [id number] 0103-7064-[id number] - [id number] Implanted:Qty: 1 on 04/20/2024 by Olaf Pascual MD at [facility] N/A: Spine Cervical [employer] Inc 05/22/2028 [id number] / / [id number] Med[employer] Inc Cage Spn Med 6d Acif Endoskeleton Tcs Nanolock [id number] 2654-0114-N - [id number] Implanted:Qty: 1 on 04/20/2024 by Olaf Pascual MD at [facility] N/A: Spine Cervical [employer] Inc 03/27/2028 [id number] / / [id number] Med[employer] Inc Zevo 37mm 2 Level Spine Cervical Anterior Plate Bone Titanium [id number] - [id number] Implanted:Qty: 1 on 04/20/2024 by Olaf Pascual MD at [facility] N/A: Spine Cervical [employer] Inc [id number] / / Med[employer]onic Inc Zevo 3.5mm 17mm Variable Self Drill Spine Cervical Anterior Screw [id number] - [id number] Implanted:Qty: 2 on 04/20/2024 by Olaf Pascual MD at [facility] N/A: Spine Cervical [employer] Inc [id number] / / Med[employer] Inc Zevo 3.5mm 15mm Variable Self Drill Spine Cervical Anterior Screw [id number] - [id number] Implanted:Qty: 2 on 04/20/2024 by Olaf Pascual MD at [facility] N/A: Spine Cervical [employer] Inc [id number] / / Med[employer] Inc Screw Spinal Anterior Cervical Self Drilling Solid Zevo 4.0x17mm Titanium [id number] - [id number] Implanted:Qty: 2 on 04/20/2024 by Olaf Pascual MD at [facility] N/A: Spine Cervical Med[employer] Inc [id number] / / Med[employer] Inc Generator Pulse Inceptiv Sys Stm Electrcl Analges Implant [id number] - [id number] - [id number] Implanted:Qty: 1 on 08/04/2024 by Olaf Pascual MD at [facility] Spine Thoracic Med[employer] Inc 07/15/2025 [id number] / [id number] / Med[employer]onic Inc Specify Surescan 65cm 3 Column 16 Electrode Lead Nerve Stimulator [id number] - [id number] Implanted:Qty: 1 on 08/04/2024 by Olaf Pascual MD at [facility] Spine Thoracic [employer] [id number] / / [id number] Explanted Type Area Petroleum Inspector Device Identifier Shelf Expiration Date Model / Serial / Lot Medtronic Inc Vectris 5mm 60cm 1x8 Electrode Mri Lead Neurostimulator [id number] - [id number] Explanted:Qty: 1 on 10/28/2023 at [facility] N/A: Thoracic- Lumbar Spine [employer] Inc 09/30/2027 [id number] / / [id number] Procedures Procedure Name Priority Date/Time Associated Diagnosis [...] images of the brain were postprocessed on OpenExchangeo VIA to generate segmented brain volumes using commercial software. Results were compared to 10th and 90th percentiles of healthy age-/gender-matched population. Graphs were sent to [employer] and NOSTROMO ICT PACS. The protocol specifically includes FLAIR to [...] hippocampal volumes: Quantitative assessment was performed using OpenExchangeo Ooshot and is reported. Total intracranial volume (TIV): [...] images of the brain were postprocessed on Syngo VIA to generate segmented brain volumes using commercial software. Results were compared to 10th and 90th percentiles of healthy age-/gender-matched population. Graphs were sent to [facility] and NOSTROMO ICT PACS. The protocol specifically includes FLAIR to [...] hippocampal volumes: Quantitative assessment was performed using Syngo Via and is reported. Total intracranial volume (TIV): [...] * Hemoglobin A1c (12/16/2024 1:30 PM CDT) [facility] Hgb A1C 5.1 4.0 - 5.6 % Estimated Average Glucose 100 mg/dL [facility] Comment: The ADA recommends reporting an estimated Average Glucose (eAG) with all Hemoglobin A1c results using the equation derived from a study of 507 normal and diabetic adults. Minority populations were underrepresented and children were not included. (Diabetes Care 31:0117-5326, 2008). The eAG is not equivalent to a fasting glucose. Blood 12/16/2024 1:30 PM CDT 12/16/2024 1:40 PM CDT Adam David MD LAB BLOOD ORDERABLES Final Result [facility] [address] Department [place] [address] * (ABNORMAL) Immunoglobulin free light chains (12/16/2024 12:57 PM CDT) [facility] [place]/Lambda ratio [facility] 1.11 0.26 - 1.65 Comment: Interpretive Data The Binding Site FreeLite assay procedure was used. Results from different manufacturers or methods may not be comparable. Serial testing should be performed using the same methods and instrumentation. Current Interpretive Data was last revised on 2023. Testing performed by: [facility], [address] [place]., [address] [place] free light chain [facility] 2.53(H) 0.33 - 1.94 mg/dL [facility] Comment: Interpretive Data The Binding Site FreeLite assay procedure was used. Results from different manufacturers or methods may not be comparable. Serial testing should be performed using the same methods and instrumentation. Current Interpretive Data was last revised on 2023. Testing performed by: [facility], [address] [place]., [address] Lambda free light chain [facility] 2.27 0.57 - 2.63 mg/dL [facility] Comment: Interpretive Data The Binding Site FreeLite assay procedure was used. Results from different manufacturers or methods may not be comparable. Serial testing should be performed using the same methods and instrumentation. Current Interpretive Data was last revised on 2023. Testing performed by: [facility], [address] [place]., [address] Blood 12/16/2024 12:5 7 PM CDT 12/16/2024 4:26 PM CDT Adam David MD LAB BLOOD ORDERABLES Final Result [facility] [address] Department of Laboratories [place], [place] [id number] * Thyroid Function Jennings (12/16/2024 12:57 PM CDT) TSH 0.82 0.30 - 4.20 mcIUnit/mL Blood 12/16/2024 12:5 7 PM CDT 12/16/2024 1:16 PM CDT Adam David MD LAB BLOOD ORDERABLES Final Result Performing Organization Address City/[facility]/ZIP Co de Phone Number [facility] [address] [facility] [place] [address] * Methylmalonic acid, serum (12/16/2024 12:57 PM CDT) MMA 0.35 <=0.40 nmol/mL [facility] Comment: ADDITIONAL INFORMATION This test was developed and its performance characteristics determined by [facility] in a manner consistent with CLIA requirements. This test has not been cleared or approved by the U.S. Food and Drug Administration. Test Performed by: [place] [address] Floor Scraper: Stephen Ball Ph.D.; CLIA# [id number] Blood 12/16/2024 12:5 7 PM CDT 12/16/2024 1:16 PM CDT Adam David MD LAB BLOOD ORDERABLES Final Result Performing Organization Address City/[facility] Co de Phone Number [facility] [address] [facility] [place] [address] [place] * Copper, serum (12/16/2024 12:57 PM CDT) Copper 99 77 - 206 mcg/dL [facility] Comment: ADDITIONAL INFORMATION This test was developed and its performance characteristics determined by [facility] in a manner consistent with CLIA requirements. This test has not been cleared or approved by the U.S. Food and Drug Administration. Test Performed by: [facility] - [facility] [address] [place] [address] Floor Scraper: Stephen Ball Ph.D.; CLIA# [id number] Blood 12/16/2024 12:5 7 PM CDT 12/16/2024 1:16 PM CDT Adam David MD LAB BLOOD ORDERABLES Final Result Performing Organization Address [facility] Co de Phone Number [facility] [address] [facility] [address] [place] * (ABNORMAL) Zinc (12/16/2024 12:57 PM CDT) Zinc 44(L) 60 - 106 mcg/dL [facility] Comment: ADDITIONAL INFORMATION This test was developed and its performance characteristics determined by [facility] in a manner consistent with CLIA requirements. This test has not been cleared or approved by the U.S. Food and Drug Administration. Test Performed by: [facility] [place] [address] Floor Scraper: Stephen Ball Ph.D.; CLIA# [id number] Blood 12/16/2024 12:5 7 PM CDT 12/16/2024 1:16 PM CDT Adam David MD LAB BLOOD ORDERABLES Final Result Performing Organization Address [facility] de Phone Number [facility] [address] [facility] [employer] [place], [place] [id number] [place] [facility] * Vitamin E (12/16/2024 12:57 PM CDT) Tocopherol (Vit E) 5.6 5.5 - 17.0 mg/L [place] Comment: ADDITIONAL INFORMATION This test was developed and its performance characteristics determined by [facility] in a manner consistent with CLIA requirements. This test has not been cleared or approved by the U.S. Food and Drug Administration. Test Performed by: [place] [address] Floor Scraper: Stephen Ball Ph.D.; CLIA# [id number] Blood 12/16/2024 12:5 7 PM CDT 12/16/2024 1:54 PM CDT Adam David MD LAB BLOOD ORDERABLES Final Result Performing Organization Address City/[facility]/ZIP Co de Phone Number [facility] [address] [employer] [place] [address] [place] [facility] * Vitamin B6 (12/16/2024 12:57 PM CDT) [facility] Pyridoxal phosphate (Vit B6) 9 5 - 50 mcg/L [facility] Comment: ADDITIONAL INFORMATION This test was developed and its performance characteristics determined by [facility] in a manner consistent with CLIA requirements. This test has not been cleared or approved by the U.S. Food and Drug Administration. Test Performed by: [place] [address] Floor Scraper: Stephen Ball Ph.D.; CLIA# [id number] Blood 12/16/2024 12:5 7 PM CDT 12/16/2024 1:32 PM CDT Adam David MD LAB BLOOD ORDERABLES Final Result Performing Organization Address City/[facility]/ZIP Co de Phone Number [facility] [address] [employer] [place] [address] [place] [facility] * Protein electrophoresis with reflex, serum with interpretation (12/16/2024 12:57 PM CDT) [facility] Protein, sr 6.6 6.2 - 8.2 g/dL Albumin 3.9 3.2 - 5.0 g/dL [facility] Alpha-1 globulin 0.4 0.2 - 0.4 g/dL [facility] Alpha-2 globulin 0.7 0.5 - 1.0 g/dL [facility] Beta-1 globulin 0.4 0.3 - 0.6 g/dL [facility] Beta-2 globulin 0.3 0.2 - 0.6 g/dL [facility] Gamma globulin 0.9 0.5 - 1.7 g/dL [facility] SPEP interp See Comment [facility] Comment:SPEP INTERPRETATION: No apparent monoclonal peak Blood 12/16/2024 12:5 7 PM CDT 12/16/2024 1:20 PM CDT Adam David MD LAB BLOOD ORDERABLES Final Result Performing Organization Address [facility]/ZIP Co de Phone Number [facility] [address] Department [place] [address] * Folate (12/16/2024 12:57 PM CDT) Folic acid >40.0 >=5.0 ng/mL Blood 12/16/2024 12:5 7 PM CDT 12/16/2024 1:16 PM CDT Adam David MD LAB BLOOD ORDERABLES Final Result Performing Organization Address City/[facility]/ZIP Co de Phone Number [facility] [address] Department [place] [address] * Vitamin B12 (12/16/2024 12:57 PM CDT) Vitamin B12 711 230 - 1,250 pg/mL Blood 12/16/2024 12:5 7 PM CDT 12/16/2024 1:16 PM CDT Adam David MD LAB BLOOD ORDERABLES Final Result [facility] [address] Department [place] [address] * (ABNORMAL) Vitamin B1 (12/16/2024 12:53 PM CDT) Thiamine (Vit B1) 484(H) 70 - 180 nmol/L [facility] Lab Comment: ADDITIONAL INFORMATION This test was developed and its performance characteristics determined by [facility] in a manner consistent with CLIA requirements. This test has not been cleared or approved by the U.S. Food and Drug Administration. Test Performed by: [facility] - [address] [address] Floor Scraper: Stephen Ball Ph.D.; CLIA# [id number] Blood 12/16/2024 12:5 3 PM CDT 12/16/2024 1:23 PM CDT Adam David MD LAB BLOOD ORDERABLES Final Result [facility] [address] Department [place] [address] [facility] Lab * Diagnostic Mammogram Bilateral w Joey [...] Recently Relevant to Health Maintenance Insurance IDPA [facility] MEDICARE ADVANTAGE [facility] MEDICARE Address: [address] [address] [place] [address] [facility] MDCR HMO REF [facility] MEDICARE Address: [address] [address] [place] [address] IDPA [place] [id number] IDPA [facility] MEDICARE ADVANTAGE [facility] MEDICARE Address: [address] [address] [place] [address] Advance Directives For more information, please contact: [phone] * Full Code (Latest Code Status on File) Date Activated Date Inactivated Comments 04/20/2024 1:08 PM 04/21/2024 7:29 PM Care Teams Agricultural Economist Relationship Specialty Start Date End Date Adis Lloyd MD [address] [place] [address] [place] [address] PCP - General 11/09/19 Corey Mortensen DO [address] [place] [address] Medical Oncologist/Hematologis t Hematology and Oncology 09/09/18
--- OUTSIDE RECORDS SUMMARY | 2025-01-03 10:26 | XMS_ITS | Clinical Summary ---
Author Organization [facility] [employer] Address [address] [place] [address] Care Team Providers Care Reflesher Name Role Phone Adis Lloyd Primary Care Provider Unavailab le Source Comments [facility] [employer],non-owned Affiliates and Associated Physician Practices is amultiple site organization consisting of ambulatory clinics and hospital sitesin [place], [place], [place] and [place]. This disclosure is being madepursuant to the Care Everywhere program and may not contain all information available regarding this patient. Last updated 18.[facility] [employer] Allergies Active Allergy Reactions Criticality Noted Date [...] Active vitamine D3 (CHOLECALCIFERO L) 250 MCG (50268 UT) capsule Take 10,000 Units by mouth [...] (AF LURIA, FLUZONE TRIVALENT; 6MO+) (IIV3) 09/30/2016 [employer] primary monoval ent 12+ yr 0.3mL Purple [...] Comments Blood Pressure 118/78 08/23/2021 2:30 PM [employer] Pulse 68 08/23/2021 2:30 PM [employer] Temperature 36.8 C (98.3 F) 08/23/2021 2:30 PM [employer] Respiratory Rate 18 08/23/2021 2:30 PM [employer] Oxygen Saturation 98% 08/23/2021 2:30 PM [employer] Inhaled Oxygen Concentration - - Weight 118.3 kg (260 lb 12.8 oz) 08/23/2021 2:30 PM [employer] Height 170.2 cm (5' 7 ) 08/23/2021 2:30 PM [employer] Body Mass Index 40.85 08/23/2021 2:30 PM [employer] Plan of Treatment Health Maintenance Due Date Last Done Comments COLOGUARD (AGES 45-75) - COLON CA SCREENING [address] COLONOGRAPHY - COLON CA SCREENING 1961 FIT - COLON CA SCREENING 1961 FLEX SIG - COLON CA SCREENING 1961 LIPID TESTING 1961 ZOSTER VACCINE (1 of 2) 2011 [...] 03/30/2021, Additional history exists DEPRESSION SCREENING 09/01/2024 INFLUENZA VACCINE (Season Ended) 2025 07/20/2020, 07/27/2019, [...] COMPREHENSIVE METABOLIC PANEL STAT 08/03/2021 8:33 PM [employer] HEPATITIS C ANTIBODY STAT 08/03/2021 8:33 PM [employer] HIV-1 HIV-2 ANTIBODY + HIV P24 AG PANEL STAT 08/03/2021 8:33 PM [employer] from Last 3 Months or Most Recently Relevant to Health Maintenance Results * HIV-1 HIV-2 ANTIBODY + HIV P24 AG PANEL (08/03/2021 8:33 PM [employer]) HIV1/2 Ab + P24 Ag Non Reactive Non Reactive 08/03/2021 9:28 PM [employer] [facility] Blood BLOOD SPECIMEN / Unknown Venipuncture / Unknown 08/03/2021 8:33 PM [employer] 08/03/2021 8:46 PM [employer] Narrative [facility] - 08/03/2021 9:28 PM [employer] No Laboratory evidence of HIV infection. us Laurence Sahu MD LAB - CHEMISTRY ORDERABLES Final Result [facility] [address] [place] [address] * (ABNORMAL) COMPREHENSIVE METABOLIC PANEL (08/03/2021 8:33 PM [employer]) [facility] Glucose 105 70 - 105 mg/dL 08/03/2021 9:13 PM [facility] Sodium 133(L) 136 - 145 mmol/L 08/03/2021 9:13 PM [facility] Potassium 4.4 3.5 - 5.1 mmol/L 08/03/2021 9:13 PM [facility] Chloride 100 98 - 107 mmol/L 08/03/2021 9:13 PM [facility] CO2 18(L) 23 - 31 mmol/L 08/03/2021 9:13 PM [facility] Calcium 9.6 8.4 - 10.4 mg/dL 08/03/2021 9:13 PM [facility] Anion Gap 15 8 - 18 mmol/L 08/03/2021 9:13 PM [facility] BUN 14 9.8 - 20.1 mg/dL 08/03/2021 9:13 PM [facility] Creatinine 0.85 0.57 - 1.11 mg/dL 08/03/2021 9:13 PM [facility] Alkaline Phosphatase 169(H) 40 - 150 U/L 08/03/2021 9:13 PM [facility] ALT 271(H) 0 - 61 U/L 08/03/2021 9:13 PM [facility] AST 152(H) 5 - 34 U/L 08/03/2021 9:13 PM [facility] Protein Total 7.3 6.4 - 8.3 gm/dL 08/03/2021 9:13 PM [facility] Albumin 3.9 3.2 - 4.6 gm/dL 08/03/2021 9:13 PM [facility] Bilirubin Total 1.1 0.2 - 1.2 mg/dL 08/03/2021 9:13 PM [facility] eGFR by MDRD >60 >60 mL/min/1.7 3m2 08/03/2021 9:13 PM [facility] eGFR by MDRD >60 >60 mL/min/1.7 3m2 08/03/2021 9:13 PM [employer] [facility] Blood BLOOD SPECIMEN / Unknown Venipuncture / Unknown 08/03/2021 8:33 PM [employer] 08/03/2021 8:46 PM [employer] us Payton Cardona [employer]PER[employer]LEARNING MANAGER LAB - CHEMISTRY OR DERABLES Final Result Performing Organization Address [facility] Co de Phone Number [facility] [address] [place] [address] * HEPATITIS C ANTIBODY (08/03/2021 8:33 PM [employer]) HCV Antibody Screen Non Reactive Non Reactive 08/03/2021 10:14 PM [employer] [facility] Blood BLOOD SPECIMEN / Unknown Venipuncture / Unknown 08/03/2021 8:33 PM [employer] 08/03/2021 8:46 PM [employer] Narrative [facility] - 08/03/2021 10:14 PM [employer] Non Reactive - Antibodies to Hepatitis C virus (HCV) were not detected, result does not exclude early acute HCV infection. Laurence Sahu MD LAB - CHEMISTRY ORDERABLES Final Result Performing Organization Address [facility] de Phone Number [facility] [address] [place] [phone] from Last 3 Months or Most Recently Relevant to Health Maintenance Insurance [facility] MANAGED MEDICARE [place] [address] MEDICAID - [place] Advance Directives * Full Code (Latest Code Status on File) Date Activated Date Inactivated Comments 03/28/2021 4:55 PM 03/30/2021 2:51 PM Care Teams Reflesher Relationship Specialty Start Date End Date Adis Lloyd Update Information PCP - General Family Medicine 08/07/20
--- OUTSIDE RECORDS SUMMARY | 2025-01-03 10:26 | XMS_ITS | Data Portability ---
Author Organization [place] [facility], Main Office Address [address] [place] [address] Care Team Providers Care In Service Coordinator Name Role Phone ADIS LLOYD Primary Care Provider ADIS LLOYD Referring Provider [phone] Assessment Encounter Date Assessment Date Assessment LastModified [...] Cont f/u with Wt loss clinic at [facility] as per schedule. Cont f/u with Mixing Tumbler Operator at [facility] as per schedule. Cont f/u with Derm at [place] as per schedule. Cont f/u with Wound clinic at [facility] as per schedule. Cont f/u with Psych & counsellor at [facility] as per schedule. Cont f/u with Cardio at [facility] as per schedule. Cont f/u with Spine surgeon at [place] as per schedule. Cont f/u with Pain clinic at [place] [facility] as per schedule. Cont f/u with Ortho at [place] as per schedule. Cont f/u with Hemat as per schedule. Cont f/u with Gyne as per schedule. Cont f/u with Ophtho at [facility] as per schedule. Cont f/u with GI as per schedule. Pt has seen Psych & counsellor at [facility] in the past, but doesn't want to f/u with them. Pt has seen Wt loss clinic at [place]; but doesn't want to f/u with them. [...] in 2 months. Annual labs in 04/24. [email or web address] Not available 11/10/2023 17:00:00 05/11/2024 05/11/2024 64 [...] Cont f/u with Wt loss clinic at [facility] as per schedule. Cont f/u with Mixing Tumbler Operator at [facility] as per schedule. Cont f/u with Derm at [place] as per schedule. Cont f/u with Wound clinic at [facility] as per schedule. Cont f/u with Psych & counsellor at [facility] as per schedule. Cont f/u with Cardio at [facility] as per schedule. Cont f/u with Spine surgeon at [place] as per schedule. Cont f/u with Pain clinic at [place] as per schedule. Cont f/u with Ortho at [place] as per schedule. Cont f/u with Hemat as per schedule. Cont f/u with Gyne as per schedule. Cont f/u with Ophtho at [facility] as per schedule. Cont f/u with GI as per schedule. Pt has seen Psych & counsellor at [facility] in the past, but doesn't want to f/u with them. Pt has seen Wt loss clinic at [place]; but doesn't want to f/u with them. [...] in 3-4 weeks. Annual labs in 04/24. Not available 05/11/2024 14:43:24 06/22/2024 06/22/2024 64 [...] Cont f/u with Wt loss clinic at [facility] as per schedule. Cont f/u with Mixing Tumbler Operator at [facility] as per schedule. Cont f/u with Derm at [place] as per schedule. Cont f/u with Wound clinic at [facility] as per schedule. Cont f/u with Psych & counsellor at [facility] as per schedule. Cont f/u with Cardio at [facility] as per schedule. Cont f/u with Spine surgeon at [place] as per schedule. Cont f/u with Pain clinic at [place] as per schedule. Cont f/u with Ortho at [place] as per schedule. Cont f/u with Hemat as per schedule. Cont f/u with Gyne as per schedule. Cont f/u with Ophtho at [facility] as per schedule. Cont f/u with GI as per schedule. Pt has seen Psych & counsellor at [facility] in the past, but doesn't want to f/u with them. Pt has seen Wt loss clinic at [place]; but doesn't want to f/u with them. [...] visit. Annual labs in 06/25. Not available 06/22/2024 12:53:15 07/08/2024 07/08/2024 64 [...] Cont f/u with Wt loss clinic at [facility] as per schedule. Cont f/u with Mixing Tumbler Operator at [facility] as per schedule. Cont f/u with Derm at [place] as per schedule. Cont f/u with Wound clinic at [facility] as per schedule. Cont f/u with Psych & counsellor at [facility] as per schedule. Cont f/u with Cardio at [facility] as per schedule. Cont f/u with Spine surgeon at [place] as per schedule. Cont f/u with Pain clinic at [place] [place] [facility] as per schedule. Cont f/u with Ortho at [place] as per schedule. Cont f/u with Hemat as per schedule. Cont f/u with Gyne as per schedule. Cont f/u with Ophtho at [facility] as per schedule. Cont f/u with GI as per schedule. Pt has seen Psych & counsellor at [facility] in the past, but doesn't want to f/u with them. Pt has seen Wt loss clinic at [place]; but doesn't want to f/u with them. [...] on next visit. Annual labs in 06/25. [email or web address] Not available 07/08/2024 12:38:41 10/12/2024 10/12/2024 64 [...] verbalized understanding it. F/u with Neuro at [facility] as per schedule. Cont f/u with Wt loss clinic at [facility] as per schedule. Cont f/u with Mixing Tumbler Operator at [facility] as per schedule. Cont f/u with Derm at [place] as per schedule. Cont f/u with Wound clinic at [facility] as per schedule. Cont f/u with Psych & counsellor at [facility] as per schedule. Cont f/u with Cardio at [facility] as per schedule. Cont f/u with Spine surgeon at [place] as per schedule. Cont f/u with Pain clinic at [place] [place] as per schedule. Cont f/u with Ortho at [place] as per schedule. Cont f/u with Hemat as per schedule. Cont f/u with Gyne as per schedule. Cont f/u with Ophtho at [facility] as per schedule. Cont f/u with GI as per schedule. Pt has seen Psych & counsellor at [facility] in the past, but doesn't want to f/u with them. Pt has seen Wt loss clinic at [place]; but doesn't want to f/u with them. [...] in 3-4 months. Annual labs in 06/25. [email or web address] Not available 10/12/2024 12:37:44 Plan of Treatment Reminders Order Date Submit Date Provider Last Modified By Organization Details Last Modified Time Details Appointments Follow Up 30 2024 01:00P Nelly Lloyd MD Not available Not available Not available Lab vitamin B12 + folate, serum or blood 2023 [email or web address] [facility]), [address] [place] [address], [id number], 07/01/2024 11:29:00 magnesium , serum or plasma 2023 ELLEN [facility]), [address] [place], [address], 06/22/2024 19:25:32 vitamin D, 25-hydrox y, total, serum [email or web address] [place] [address]), [address] [place] [address], [address], 07/01/2024 11:29:36 uric acid, serum or plasma 2023 [facility]), [address] [place], [address], 06/22/2024 19:25:26 HbA1c (hemoglob in A1c), blood [address]), [address] [place], [address], 07/01/2024 11:29:24 urinalysi s complete, reflex culture [address]), [address] [place] [address], [address], 08/12/2024 14:40:57 CBC w/ auto diff 2023 [facility]), [address] [place] [address], [address], 06/22/2024 19:30:17 CMP, serum or plasma 2023 024 [facility]), [address] [place] [address], [address], 06/22/2024 19:25:22 TSH, serum, reflex free T4 [email or web address] [place] [address]), [address] [place] [address], [address], 07/22/2024 10:33:18 lipid panel, serum 2023 024 [facility]), [address] [place] [address], [address], 06/22/2024 19:25:30 Referral None recorded. Procedures None recorded. Surgeries None recorded. Imaging MAMMO, screening , bilateral [address] ([place]), [address] [place], [address], 10/13/2024 09:03:48 US, breast, bilateral - Please call patient to schedule. [address] ([place]), [address] [place], [address], 12/15/2024 15:44:23 MAMMO, diagnosti c, digital, bilateral [address]), [address] [place], [address], 10/13/2024 09:04:03 US, breast, unilatera l - To be done w/ Dx Mammogram 2023 024 [facility]), [address] [place], [address], 05/25/2024 11:09:23 MAMMO, diagnosti c, digital, unilatera l - Please call pt to schedule for Left side Dx Mammogram [email or web address] [place] [address]), [address] [place], [address], 06/10/2024 09:18:15 Medication Orders cyclobenz aprine 10 mg tablet 2024 025 [facility], [address] [place] [address], [address], [place], [address], 10/12/2024 12:20:31 triamcino lone acetonide 0.1 % topical cream 2024 025 [facility], [facility], [address], [place], [address], 10/12/2024 12:22:33 allopurin ol 100 mg tablet 2024 025 ELLEN [facility] [place], [address] [facility], [address], [place], [address], 10/12/2024 12:20:29 amitripty line 150 mg tablet 2024 025 ELLEN [facility] [place], [address] [facility], [facility] [address], [place], [address], 10/12/2024 12:20:34 gabapenti n 800 mg tablet 2024 025 ELLEN [facility] [place], [address] [facility], [facility] [address], [place], [address], 10/12/2024 12:20:35 omeprazol e 20 mg capsule,d elayed release 2024 025 ELLEN [facility] [place], [address] [facility], [address], [place], [address], 10/12/2024 12:20:33 Synthroid 75 mcg tablet 2024 025 ELLEN [facility] [place], [address] [facility], [facility] [address], [place], [address], 10/12/2024 12:20:38 meloxicam 7.5 mg tablet 2024 025 ELLEN [facility] [place], [address] [facility], [address], [place], [address], 10/12/2024 12:20:31 cyclobenz aprine 10 mg tablet 2023 024 ELLEN [facility] [place], [address] [facility], [address], [place], [address], 07/08/2024 12:39:54 allopurin ol 100 mg tablet 2023 024 ELLEN [facility] [place], [address] [facility], [address], [place], [address], 07/08/2024 12:39:57 amitripty line 150 mg tablet 2023 024 ELLEN [facility] [place], [address] [facility], [facility] [address], [place], [address], 07/08/2024 12:39:54 Zepbound 2.5 mg/0.5 mL subcutane ous pen injector 2023 024 [email or web address] [facility] [place], [address] [facility], [facility] [address], [place], [address], 10/12/2024 12:37:12 gabapenti n 800 mg tablet 2023 ELLEN [facility] [place], [address] [facility], [facility] [address], [place], [address], 07/08/2024 12:39:55 omeprazol e 20 mg capsule,d elayed release 2023 ELLEN [facility] [place], [address] [facility], [facility] [address], [place], [address], 07/08/2024 12:39:58 Synthroid 75 mcg tablet 2023 024 ELLEN [facility] [place], [address] [facility], [facility] [address], [place], [address], 07/08/2024 12:39:59 meloxicam 7.5 mg tablet 2023 024 ELLEN [facility] [place], [address] [facility], [facility] [address], [place], [address], 07/08/2024 12:39:56 cyclobenz aprine 10 mg tablet 2023 ELLEN [facility], [address] [facility], [facility] [address], [place], [address], 06/22/2024 12:44:18 allopurin ol 100 mg tablet 2023 ELLEN [facility] [place], [address] [facility], [address], [place], [address], 06/22/2024 12:44:15 amitripty line 150 mg tablet 2023 ELLEN [facility] [place], [address] [facility], [address], [place], [address], 06/22/2024 12:44:19 meloxicam 7.5 mg tablet 2023 ELLEN [facility] [place], [address] [facility], [address], [place], [address], 06/22/2024 12:44:21 gabapenti n 800 mg tablet 2023 ELLEN [facility] [place], [address] [facility], [address], [place], [address], 06/22/2024 12:44:17 omeprazol e 20 mg capsule,d elayed release 2023 ELLEN [facility] [place], [address] [facility], [address], [place], [address], 06/22/2024 12:44:15 Synthroid 75 mcg tablet 2023 ELLEN [facility] [place], [address] [facility], [address], [place], [address], 06/22/2024 12:44:12 cyclobenz aprine 10 mg tablet 2023 ELLEN [facility] [place], [address] [facility], [address], [place], [address], 05/11/2024 14:32:02 allopurin ol 100 mg tablet 2023 024 ELLEN [facility] [place], [address] [facility], [address], [place], [address], 05/11/2024 14:31:51 amitripty line 150 mg tablet 2023 024 ELLEN [facility] [place], [address] [facility], [address], [place], [address], 05/11/2024 14:31:53 Wegovy 0.25 mg/0.5 mL subcutane ous pen injector 2023 024 [facility] [place], [address] [facility], [address], [place], [address], 10/12/2024 12:37:08 gabapenti n 800 mg tablet 2023 024 ELLEN [facility] [place], [address] [facility], [address], [place], [address], 05/11/2024 14:31:52 omeprazol e 20 mg capsule,d elayed release 2023 024 ELLEN [facility] [place], [address] [facility], [address], [place], [address], 05/11/2024 14:31:53 Synthroid 75 mcg tablet 2023 024 ELLEN [facility] [place], [address] [facility], [address], [place], [address], 05/11/2024 14:32:01 meloxicam 7.5 mg tablet 2023 024 ELLEN [facility] [place], [address] [facility], [address], [place], [address], 05/11/2024 14:31:50 cyclobenz aprine 10 mg tablet 032023 ELLEN [facility] [place], [address] [facility], [address], [place], [address], 11/10/2023 16:39:02 allopurin ol 100 mg tablet 2023 ELLEN [facility] [place], [address] [facility], [address], [place], [address], 11/10/2023 16:39:00 amitripty line 150 mg tablet 2023 ELLEN [facility], [address] [place] [address], [address], 03/12/2024 12:13:56 phentermi ne 15 mg capsule 2023 [email or web address] [facility], [address] [place] [address], [address], 10/12/2024 12:21:04 gabapenti n 800 mg tablet 2023 ELLEN [facility] [place], [address] [facility], [address], [place], [address], 11/10/2023 16:39:03 omeprazol e 20 mg capsule,d elayed release 2023 ELLEN [facility], [address] [place] [address], [address], 03/12/2024 12:13:57 Synthroid 75 mcg tablet 2023 024 ELLEN [facility], [address] [place] [address], [address], 11/17/2023 18:33:53 meloxicam 7.5 mg tablet 2023 ELLEN [facility] [place], [address] [facility], [address], [place], [address], 11/10/2023 16:38:59 Patient TargetsNo targets recorded. Patient Instructions Encounter Date Encounter Id Patient Instructions Last Modified By Organization Details Last Modified Time 11/10/2023 [id number] dementia rating scale-2* Not available 11/10/2023 16:54:34 alcohol misuse* Not available 11/10/2023 17:00:01 depression screening* [id number] Not available 11/10/2023 17:00:01 Timed Up and Go test (TUG)* [email or web address] Not available 11/10/2023 17:00:01 multi-dimensiona l health [...] MEN SENT TO THE LAB Not Available [facility] (Lab) [address] [place], [address], 06/22/2024 19:09:32 06/22/2006/22/2024 COMPR EHENS ELY METAB OLIC PANEL sodium 139 mmol/ L 137-14 5 Not Available [facility] (Lab) [address] [place], [address], 06/22/2024 19:25:22 06/22/2006/22/2024 COMPR EHENS ELY METAB OLIC PANEL potassium 4.7 mmol/ L 3.5-5. 1 Not Available [facility] (Lab) [address] [place], [address], 06/22/2024 19:25:22 06/22/20 24 06/22/2024 COMPR EHENS ELY METAB OLIC PANEL chloride 106 mmol/ L 98-107 Not Available [facility] (Lab) [address] [place], [address], 06/22/2024 19:25:22 06/22/20 24 06/22/2024 COMPR EHENS ELY METAB OLIC PANEL carbon dioxide 24 mmol/ L 22-30 Not Available [facility] (Lab) [address] [place], [address], 06/22/2024 19:25:22 06/22/20 24 06/22/2024 COMPR EHENS ELY METAB OLIC PANEL anion gap 13.7 mmol/ L 14-22 low Not Available [facility] (Lab) [address] [place], [address], 06/22/2024 19:25:22 06/22/20 24 06/22/2024 COMPR EHENS ELY METAB OLIC PANEL glucose 93 mg/dL 70-99 Not Available [facility] (Lab) [address] [place], [address], 06/22/2024 19:25:22 06/22/20 24 06/22/2024 COMPR EHENS ELY METAB OLIC PANEL BUN 13 mg/dL 8-19 Not Available [facility] (Lab) [address] [place], [address], 06/22/2024 19:25:22 06/22/20 24 06/22/2024 COMPR EHENS ELY METAB OLIC PANEL creatinine 1.01 mg/dL 0.66-1 .25 Not Available [facility] (Lab) [address] [place], [address], 06/22/2024 19:25:22 06/22/2006/22/2024 COMPR EHENS ELY METAB OLIC PANEL GFR 55 Refer ence Range : Braggadocio ge GFR Healt hy Adult : >60 [...] s/kdo qi/gf r_cal culat or Not Available [facility] (Lab) [address] [place], [address], 06/22/2024 19:25:22 06/22/20 24 06/22/2024 COMPR EHENS ELY METAB OLIC PANEL alkaline phosphatase 130 U/L 38-126 high Not Available [facility] (Lab) [address] [place], [address], 06/22/2024 19:25:22 06/22/20 24 06/22/2024 COMPR EHENS ELY METAB OLIC PANEL alanine aminotransfe rase 31 U/L 0-35 Not Available [facility] (Lab) [address] [place], [address], 06/22/2024 19:25:22 06/22/20 24 06/22/2024 COMPR EHENS ELY METAB OLIC PANEL aspartate aminotransfe rase 35 U/L 15-37 Not Available [facility] (Lab) [address] [place], [address], 06/22/2024 19:25:22 06/22/20 24 06/22/2024 COMPR EHENS ELY METAB OLIC PANEL bilirubin, total 0.50 mg/dL 0.20-1 .30 Not Available [facility] (Lab) [address] [place], [address], 06/22/2024 19:25:22 06/22/20 24 06/22/2024 COMPR EHENS ELY METAB OLIC PANEL calcium 10.1 mg/dL 8.4-10 .2 Not Available [facility] (Lab) [address] [place], [address], 06/22/2024 19:25:22 06/22/2006/22/2024 COMPR EHENS ELY METAB OLIC PANEL total protein 6.7 g/dL 6.3-8. 2 Not Available [facility] (Lab) [address] [place], [address], 06/22/2024 19:25:22 06/22/20 24 06/22/2024 COMPR EHENS ELY METAB OLIC PANEL albumin 4.2 g/dL 3.0-4. 4 Not Available [facility] (Lab) [address] [place], [address], 06/22/2024 19:25:22 06/22/20 24 06/22/2024 COMPR EHENS ELY METAB OLIC PANEL globulin 2.5 g/dL 2.6-4. 2 low Not Available [facility] (Lab) [address] [place], [address], 06/22/2024 19:25:22 06/22/2006/22/2024 COMPR EHENS ELY METAB OLIC PANEL A/G ratio 1.7 ratio 1.0-2. 0 Not Available [facility] (Lab) [address] [place], [address], 06/22/2024 19:25:22 06/22/2006/22/2024 URIC ACID SERUM uric acid 5.1 mg/dL 2.5-6. 2 Not Available [facility] (Lab) [address] [place], [address], 06/22/2024 19:25:26 06/22/20 24 06/22/2024 LIPID PANEL cholesterol 198 mg/dL 140-19 9 NIH ZUHAIR NSUS RECOM MENDA TION FOR ROSALIA STERO L: ADULT CHILD LOW RISK: <200 <170 BORDE RLINE : <200- 239 ----- HIGH RISK: >240 >200 Not Available [facility] (Lab) [address] [place], [address], 06/22/2024 19:25:30 06/22/2006/22/2024 LIPID PANEL triglyceride s 88 mg/dL 0-150 NIH ZUHAIR NSUS REPOR T RECOM MENDA TION FOR TRIGL YCERI APRYL: ADULT CHILD LOW RISK: <150 ----- BODER LINE: 150-1 99 ----- HIGH RISK: >200 ----- Not Available [facility] (Lab) [address] [place], [address], 06/22/2024 19:25:30 06/22/20 24 06/22/2024 LIPID PANEL HDL cholesterol 81 mg/dL 40- Not Available [facility] (Lab) [address] [place], [address], 06/22/2024 19:25:30 06/22/2006/22/2024 LIPID PANEL LDL cholesterol, [...] WILL NOT BE REPOR YVONNE. Not Available [facility] (Lab) [address] [place], [address], 06/22/2024 19:25:30 06/22/2006/22/2024 MAGNE SIUM magnesium 1.6 mg/dL 1.6-2. 3 Not Available [facility] (Lab) [address] [place], [address], 06/22/2024 19:25:32 06/22/2006/22/2024 CBC/C OMPLE TE BLD COUNT W/DIF F white blood cells 5.6 x10'3 /uL 4.2-10 .8 Not Available [facility] (Lab) [address] [place], [address], 06/22/2024 19:30:17 06/22/20 24 06/22/2024 CBC/C OMPLE TE BLD COUNT W/DIF F red blood cells 4.55 x10'6 /uL 3.80-5 .20 Not Available [facility] (Lab) [address] [place], [address], 06/22/2024 19:30:17 06/22/2006/22/2024 CBC/C OMPLE TE BLD COUNT W/DIF F hemoglobin 14.8 g/dL 12.0-1 5.6 Not Available [facility] (Lab) [address] [place], [address], 06/22/2024 19:30:17 06/22/20 24 06/22/2024 CBC/C OMPLE TE BLD COUNT W/DIF F hematocrit 45.9 % 35.7-4 5.7 high Not Available [facility] (Lab) [address] [place], [address], 06/22/2024 19:30:17 06/22/20 24 06/22/2024 CBC/C OMPLE TE BLD COUNT W/DIF F mean red cell volume 100.9 fL 82.0-9 9.0 high Not Available [facility] (Lab) [address] [place], [address], 06/22/2024 19:30:17 06/22/20 24 06/22/2024 CBC/C OMPLE TE BLD COUNT W/DIF F mean red cell hemoglobin 32.5 pg 27.0-3 3.0 Not Available [facility] (Lab) [address] [place], [address], 06/22/2024 19:30:17 06/22/20 24 06/22/2024 CBC/C OMPLE TE BLD COUNT W/DIF F mean RBC HGB concentratio n 32.2 g/dL 31.0-3 6.0 Not Available [facility] (Lab) [address] [place], [address], 06/22/2024 19:30:17 06/22/20 24 06/22/2024 CBC/C OMPLE TE BLD COUNT W/DIF F red cell distribution width 14.3 % 11.8-1 5.5 Not Available [facility] (Lab) [address] [place], [address], 06/22/2024 19:30:17 06/22/2006/22/2024 CBC/C OMPLE TE BLD COUNT W/DIF F platelets 269 x10'3 /uL 150-40 0 Not Available [facility] (Lab) [address] [place], [address], 06/22/2024 19:30:17 06/22/20 24 06/22/2024 CBC/C OMPLE TE BLD COUNT W/DIF F mean platelet volume 10.1 fL 9.0-12 .4 Not Available [facility] (Lab) [address] [place], [address], 06/22/2024 19:30:17 06/22/2006/22/2024 CBC/C OMPLE TE BLD COUNT W/DIF F neutrophils 58.0 % 39.0-7 2.0 Not Available [facility] (Lab) [address] [place], [address], 06/22/2024 19:30:17 06/22/20 24 06/22/2024 CBC/C OMPLE TE BLD COUNT W/DIF F lymphocytes 27.1 % 16.0-4 7.0 Not Available [facility] (Lab) [address] [place], [address], 06/22/2024 19:30:17 06/22/20 24 06/22/2024 CBC/C OMPLE TE BLD COUNT W/DIF F monocytes 8.2 % 5.0-12 .0 Not Available [facility] (Lab) [address] [place], [address], 06/22/2024 19:30:17 06/22/20 24 06/22/2024 CBC/C OMPLE TE BLD COUNT W/DIF F eosinophils 4.8 % 1.0-7. 0 Not Available [facility] (Lab) [address] [place], [address], 06/22/2024 19:30:17 06/22/2006/22/2024 CBC/C OMPLE TE BLD COUNT W/DIF F basophils 1.4 % 0.0-2. 0 Not Available [facility] (Lab) [address] [place], [address], 06/22/2024 19:30:17 06/22/20 24 06/22/2024 CBC/C OMPLE TE BLD COUNT W/DIF F immature granulocytes 0.5 % 0.00-0 .50 Not Available [facility] (Lab) [address] [place], [address], 06/22/2024 19:30:17 06/22/20 24 06/22/2024 CBC/C OMPLE TE BLD COUNT W/DIF F neutrophils, absolute count 3.24 x10'3 /uL 1.5-8. 0 Not Available [facility] (Lab) [address] [place], [address], 06/22/2024 19:30:17 06/22/20 24 06/22/2024 CBC/C OMPLE TE BLD COUNT W/DIF F lymphocytes, absolute count 1.52 x10'3 /uL 1.07-3 .43 Not Available [facility] (Lab) [address], [place], [address], 06/22/2024 19:30:17 06/22/20 24 06/22/2024 CBC/C OMPLE TE BLD COUNT W/DIF F monocytes, absolute count 0.46 x10'3 /uL 0.29-0 .99 Not Available [facility] (Lab) [address] [place], [address], 06/22/2024 19:30:17 06/22/20 24 06/22/2024 CBC/C OMPLE TE BLD COUNT W/DIF F eosinophils, absolute count 0.27 x10'3 /uL 0.02-0 .53 Not Available [facility] (Lab) [address] [place], [address], 06/22/2024 19:30:17 06/22/20 24 06/22/2024 CBC/C OMPLE TE BLD COUNT W/DIF F basophils, absolute count 0.08 x10'3 /uL 0.01-0 .08 Not Available [facility] (Lab) [address] [place], [address], 06/22/2024 19:30:17 06/22/20 24 06/22/2024 CBC/C OMPLE TE BLD COUNT W/DIF F immature granulocytes ,absolute 0.03 x10'3 /uL 0.00-0 .05 Not Available [facility] (Lab) [address] [place], [address], 06/22/2024 19:30:17 06/22/20 24 06/22/2024 CBC/C OMPLE TE BLD COUNT W/DIF F nucleated red blood cells 0.0 % -0 Not Available [facility] (Lab) [address] [place], [address], 06/22/2024 19:30:17 06/22/20 24 06/22/2024 CBC/C OMPLE TE BLD COUNT W/DIF F NRBC# 0.00 x10'3 /uL Not Available [facility] (Lab) [address] [place], [address], 06/22/2024 19:30:17 06/22/2006/22/2024 VITAM IN D 25-HY DROXY vd25oh 37.5 NG/mL 30-100 Vitam in D Statu s: Defic ient: <20 ng/mL Insuf ficie nt: 20-29 ng/mL Suffi cient : 30-10 0 ng/mL Not Available [facility] (Lab) [address] [place], [address], 06/22/2024 19:39:07 06/22/2006/22/2024 TSH W/REF YANDEL FT4 TSH with reflex free T4 2.690 uIU/m L 0.465- 4.680 Not Available [facility] (Lab) [address] [place], [address], 06/22/2024 19:50:38 06/22/2006/22/2024 VITAM IN B12 (SERGEY KARTHIK ) vb12 771 pg/mL 239-93 1 Not Available [facility] (Lab) [address] [place], [address], 06/22/2024 20:21:50 06/22/20 24 06/22/2024 FOLAT E, SERUM /PLAS MA folate >20.0 NG/mL 2.76-2 0.0 Not Available [facility] (Lab) [address] [place], [address], 06/22/2024 20:21:53 06/22/20 24 06/22/2024 HEMOG LOBIN A1C HA1C 5.0 % 4.0-6. 0 Diabe kate Scree javier Crite morgan: <5.7% Consi stent with absen ce of diabe kate 5.7-6 .4% Consi stent with incre ased risk for diabe akte (pred iabet es) >OR=6 .5% Consi stent with diabe kate REFER ENCE: Diabe kate Care 2016, 39(Vargas ppl.1 ):s13 -s22 Not Available [facility] (Lab) [address] [place], [address], 06/22/2024 21:18:36 07/08/20 24 07/08/2024 URINA LYSIS COMPL ETE/I RIS W/RFX color YELLOW Not Available [facility] (Lab) [address] [place], [address], 07/08/2024 18:25:41 07/08/20 24 07/08/2024 URINA LYSIS COMPL ETE/I RIS W/RFX appear EXTRA TURBID abnormal Not Available [facility] (Lab) [address] [place], [address], 07/08/2024 18:25:41 07/08/20 24 07/08/2024 URINA LYSIS COMPL ETE/I RIS W/RFX specific gravity 1.014 1.001- 1.030 Not Available [facility] (Lab) [address] [place], [address], 07/08/2024 18:25:41 07/08/20 24 07/08/2024 URINA LYSIS COMPL ETE/I RIS W/RFX pH 5.5 pH_un its 5.0-9. 0 Not Available [facility] (Lab) [address] [place], [address], 07/08/2024 18:25:41 07/08/20 24 07/08/2024 URINA LYSIS COMPL ETE/I RIS W/RFX leukocytes NEGATI VE elissa/u L negati ve- Not Available [facility] (Lab) [address] [place], [address], 07/08/2024 18:25:41 07/08/20 24 07/08/2024 URINA LYSIS COMPL ETE/I RIS W/RFX nitrite 2+ negati ve- abnormal Not Available [facility] (Lab) [address] [place], [address], 07/08/2024 18:25:41 07/08/20 24 07/08/2024 URINA LYSIS COMPL ETE/I RIS W/RFX protein NEGATI VE mg/dL negati ve- Not Available [facility] (Lab) [address] [place], [address], 07/08/2024 18:25:41 07/08/20 24 07/08/2024 URINA LYSIS COMPL ETE/I RIS W/RFX glucose NORMAL mg/dL normal - Not Available [facility] (Lab) [address] [place], [address], 07/08/2024 18:25:41 07/08/20 24 07/08/2024 URINA LYSIS COMPL ETE/I RIS W/RFX ketones NEGATI VE mg/dL negati ve- Not Available [facility] (Lab) [address] [place], [address], 07/08/2024 18:25:41 07/08/20 24 07/08/2024 URINA LYSIS COMPL ETE/I RIS W/RFX urobilinogen NORMAL mg/dL normal - Not Available [facility] (Lab) [address] [place], [address], 07/08/2024 18:25:41 07/08/20 24 07/08/2024 URINA LYSIS COMPL ETE/I RIS W/RFX bilirubin NEGATI VE mg/dL negati ve- Not Available [facility] (Lab) [address] [place], [address], 07/08/2024 18:25:41 07/08/20 24 07/08/2024 URINA LYSIS COMPL ETE/I RIS W/RFX blood NEGATI VE mg/dL negati ve- Not Available [facility] (Lab) [address] [place], [address], 07/08/2024 18:25:41 07/08/20 24 07/08/2024 URINA LYSIS COMPL ETE/I RIS W/RFX white blood cells 0-8 /i??h pfi?? 0-8 Not Available [facility] (Lab) [address] [place], [address], 07/08/2024 18:25:41 07/08/20 24 07/08/2024 URINA LYSIS COMPL ETE/I RIS W/RFX red blood cells NONE /i??h pfi?? 0-4 Not Available [facility] (Lab) [address] [place], [address], 07/08/2024 18:25:41 07/08/20 24 07/08/2024 URINA LYSIS COMPL ETE/I RIS W/RFX bacteria NONE Not Available [facility] (Lab) [address] [place], [address], 07/08/2024 18:25:41 07/08/20 24 07/08/2024 URINA LYSIS COMPL ETE/I RIS W/RFX mucous OCCASI ONAL /i??l pfi?? abnormal Not Available [facility] (Lab) [address] [place], [address], 07/08/2024 18:25:41 07/08/20 24 07/08/2024 URINA LYSIS COMPL ETE/I RIS W/RFX squamous epithelial NONE /i??l pfi?? Not Available [facility] (Lab) [address] [place], [address], 07/08/2024 18:25:41 07/08/20 24 07/08/2024 URINA LYSIS COMPL ETE/I RIS W/RFX hyaline cast MODERA TE /i??l pfi?? none seen- abnormal Not Available [facility] (Lab) [address] [place], [address], 07/08/2024 18:25:41 07/08/20 24 07/08/2024 URINA LYSIS COMPL ETE/I RIS W/RFX calcium oxalate crystal MANY /i??h pfi?? none seen- abnormal Not Available [facility] (Lab) [address] [place], [address], 07/08/2024 18:25:41 07/08/20 24 07/08/2024 CULTU RE URINE urc ===== ===== ===== ===== ===== ===== ===== ===== ===== ===== ===== ===== ===== ===== ===== ===== ===== ===== ===== ===== ===== ===== ===== ===== Speci men NO.: [id number] Exam Statu s: Final Proce dure: [...] Genta micin >8 R R Bioty pe [id number] Oxida se React ion N Extra Sensi [...] furan toin <=32 S S Not Available [facility] ([facility]) [address] [place], [address], 07/10/2024 09:00:48 10/17/19 24 10/17/2023 MAMMO , scree javier, digit al, bilat eral No observ ation record ed. [address] [place], [address], 11/10/2023 16:30:05 10/20/19 24 10/17/2023 MAMMO , diagn ostic , digit al, unila teral No observ ation record ed. [address]) [address] [place], [address], 11/10/2023 16:30:05 03/25/20 24 03/24/2024 US, doppl er echoc ardio gram No observ ation record ed. [address] [facility] [address], [place], [address], 05/11/2024 14:24:40 05/25/20 24 05/25/2024 US, santiago rico, unila teral No observ ation record ed. [address]) [address] [place], [address], 06/22/2024 12:34:16 12/16/19 25 12/15/2024 CT, brain , w/o contr ast No observ ation record ed. [address] [place], [address], 12/16/2024 11:16:58 12/16/19 25 12/15/2024 XR, chest , 2 view No observ ation record ed. [address] [place], [address], 12/16/2024 11:17:43 12/16/19 25 12/15/2024 imagi ng/di agnos tic resul t No observ ation record ed. [address] [place], [address], 12/16/2024 11:20:30 12/16/19 25 12/15/2024 CT, cervi giuliana spine , w/o contr ast No observ ation record ed. [address] [place], [address], 12/16/2024 11:21:05 Result Notes None recorded. Problems Name Problem SNOMED Code Status Onset Date Resolution Date Notes Provider Name and Address Organization Details Recorded Time Intermit tent palpitat ions 900238722 Active 2019 Not Available [facility] 3 02:58:25 History of left hip replacem ent 89702946328 23576 Active 2016August 2013 Not Available [facility] 3 02:58:25 Impacted cerumen of bilatera l ears 27808100084 37410 Active 2019 Not Available [facility] 3 02:58:25 Active or passive immuniza tion Active 2021 Not Available [facility] 3 02:58:25 Pain in both feet 76564376072 017244 Active 2020 Not Available [facility] 3 02:58:25 Pain of right shoulder joint 92992859259 611726 Active 2020 Not Available [facility] 3 02:58:25 History of hematuri a 336184775 Active 2017 Not Available [facility] 3 02:58:26 Radiothe rapy follow-u p 339871774 Active Not Available [facility] 3 02:58:26 Seen in emergenc y clinic 537301164 Active 2021 Not Available [facility] 3 02:58:26 Transiti on of care 41073741109 05 Active 2021 Not Available [facility] 3 02:58:26 Gouty arthropa thy 118969129 Active 2018 Not Available [facility] 3 02:58:26 Obsessiv e-compul sive disorder 350195747 Active 2017 Not Available [facility] 3 02:58:26 Microsco pic hematuri a 577912436 Completed 201602/05/2018 Not Available [facility] 3 02:58:26 Menopaus al flushing 559315690 Active 2016 Not Available [facility] 3 02:58:26 Localize d, primary osteoart hritis of the pelvic region and thigh 148235689 Active Not Available [facility] 3 02:58:26 Open wound of anterior abdomina l wall 656965708 Active 2019 Not Available [facility] 3 02:58:26 Idiopath ic peripher al neuropat hy 99677595 Active 2021 Not Available [facility] 3 02:58:27 Morbid obesity 935987031 Completed 201805/31/2021 Not Available [facility] 3 02:58:27 Allergic contact dermatit is 894406721 Active 2021 Not Available [facility] 3 02:58:27 Lumbar spondylo sis 127404445 Active 2020 Not Available [facility] 3 02:58:27 Gastro-e sophagea l reflux disease with esophagi tis 284401594 Active 2020 Not Available [facility] 3 02:58:27 Anemia 310313607 Active 2017 Not Available [facility] 3 02:58:27 Anemia 257730653 Completed 201610/30/2017 Not Available [facility] 3 02:58:27 Alkaline phosphat ase above referenc e range 779909606 Active 2019 Not Available [facility] 3 02:58:27 Chronic low back pain 851608850 Active 2016 Not Available [facility] 3 02:58:27 Pruritic disorder 535924898 Active 2017 Not Available [facility] 3 02:58:27 Pain of left hip joint 53664119321 9100 Active 2019 Not Available [facility] 3 02:58:28 Depressi ve disorder 00941059 Active 2016 Not Available [facility] 3 02:58:28 Polyarth ropathy 47676250 Active 2016 Not Available [facility] 3 02:58:28 Elevated blood-pr essure reading without diagnosi s of hyperten violetta 823595145 Completed 201701/26/2019 Not Available [facility] 3 02:58:28 Chronic pain syndrome 258258140 Active 2018 Not Available [facility] 3 02:58:28 Hyperten sive disorder 82208394 Active 2018 Not Available [facility] 3 02:58:28 Hyperten sive disorder 56459010 Completed 201708/03/2018 Not Available [facility] 3 02:58:28 Memory impairme nt 616606555 Active 2020 Not Available [facility] 3 02:58:28 Osteoart hritis 827739788 Active 2016 Not Available [facility] 3 02:58:29 Hypothyr oidism 25568441 Active 2021 Not Available [facility] 3 02:58:29 Obesity 146823159 Active 2017 Not Available [facility] 3 02:58:29 Chronic kidney disease stage 3 746612875 Active 2020 Not Available [facility] 3 02:58:29 Skin ulcer 36074758 Active 2018 Not Available [facility] 3 02:58:29 Anxiety 30318483 Active 2017 Not Available [facility] 3 02:58:29 Hyperlip idemia 15097985 Active 2018 Not Available [facility] 3 02:58:29 History of spinal fusion 91300367480 107 Active 2016 L4&L5 Not Available [facility] 3 02:58:29 History of bariatri c surgical procedur e 415114655 Active 2016 1979 and a revision in 2011 Not Available [facility] 3 02:58:29 Vitamin B12 deficien cy (non anemic) 02542528 Active 2017 Not Available [facility] 3 02:58:30 Liver enzymes level above referenc e range 261046900 Active 2016 Not Available [facility] 3 02:58:30 Palpitat ions 67770666 Active 2018 Not Available [facility] 3 02:58:30 Gynecolo gic examinat ion Active 2021 Not Available [facility] 3 02:58:30 Fatigue 20853406 Active 2017 Not Available [facility] 3 02:58:30 Gastroes ophageal reflux disease without esophagi tis 305836491 Active 2022 Adis Lloyd MD [address], [address], [place], [address] , [facility] 3 14:27:31 Urinary tract infectio us disease 26695114 Active 2022 Adis Lloyd MD [address], [address], [place], [address] , [facility] 3 12:01:06 Mammogra phy abnormal 062213296 Active 2023 Adis Lloyd MD [address] [employer], [address], [place], [address] , [facility] 4 14:52:38 Postmeno pausal osteopor osis 437876669 Active 2023 Adis Lloyd MD [address], [address], [place], [address] , [facility] 4 10:29:18 Bilatera l earache 940364462 Active 2024 Adis Lloyd MD [address], [address], [place], [address] , [facility] 5 10:22:53 Problem Notes None recorded. Procedures Surgical History Date Name Laterality Status Provider Name and Address Organization Details Recorded Time 10/12/19 25 Ear Irrigation completed Adis Lloyd MD [address], [address], [place], [address], [facility] 10/12/2024 12:16:47 11/10/19 24 Medicare Wellness CPT Code, subsequent completed November SHARI La [employer] 11/10/2023 14:15:46 05/26/20 20 Most Recent Bone Density completed Not Available [facility] 10/30/2022 02:51:41 05/26/20 20 Most Recent Mammogram completed Not Available [facility] 10/30/2022 02:51:41 10/29/19 18 Date of Last Pap Smear completed Not Available [facility] 10/30/2022 02:51:41 Spinal Fusion completed Not Available [facility] 10/30/2022 02:51:44 total replacement of left hip joint completed Not Available [facility] 10/30/2022 02:51:44 bariatric operative procedure completed Not Available [facility] 10/30/2022 02:51:44 Total hip arthroplasty completed Not Available [facility] 10/30/2022 02:51:44 cholecystectomy completed Not Available [facility] 10/30/2022 02:51:44 Imaging Results Imaging Date Name Status LastModified by Organization Details LastModified Time 10/17/2023 MAMMO, screening, digital, bilateral completed [address] [place], [address], 11/10/2023 16:30:05 10/17/2023 MAMMO, diagnostic, digital, unilateral completed [address], [address], 11/10/2023 16:30:05 03/24/2024 US, doppler echocardiogram completed [address] [facility] [address], [place], [address], 05/11/2024 14:24:40 05/25/2024 US, breast, unilateral completed [address], [address], 06/22/2024 12:34:16 12/15/2024 CT, brain, w/o contrast completed [address] [place], [address], 12/16/2024 11:16:58 12/15/2024 XR, chest, 2 view completed [address] [place], [address], 12/16/2024 11:17:43 12/15/2024 imaging/diagnostic result completed [address] [place], [address], 12/16/2024 11:20:30 12/15/2024 CT, cervical spine, w/o contrast completed [address] [place], [address], 12/16/2024 11:21:05 Procedure Notes None recorded. Medical Equipment None Reported. Allergies Allergen ID Allergen Name Allergen Category Reaction Reaction Severity Criticality Documentation Date Start Date Code Code System Note Provider Name and Address Organization Details Recorded Time 5252 tramadol medicatio n confusion tachycard ia moderate severe Not available 10/30/2022 27227 RxNorm Not Available [facility] 3 03:08:32 5253 morphine medicatio n itching severe Not available 10/30/2022 7052 RxNorm Not Available [facility] 3 03:08:32 5254 levothyro xine sodium medicatio n vomiting moderate Not available 10/30/2022 40576 RxNorm Adis Lloyd MD [address] [place] [address], [facility] [address], [place], [address] , [facility] 4 11:43:52 5255 black cohosh extract medicatio n itching severe Not available 10/30/2022 27248 5 RxNorm Not Available [facility] 3 03:08:33 Medications Name Sig Start Date [...] day. 11/[address] [facility] Not Available Not Available Not Available [...] days. 12/02 completed Internal note: TOO EXPENSIV Anjel barros note: Take as per Hemat's recommen dations. [...] Not Available Not Available Not Avai lable [place] Thyroid 15 mg tablet Take 1 tablet [...] omeprazol e 20 mg capsule,d elayed release TAKE 1 CAPSULE EVERY DAY BY ORAL ROUTE IN THE MORNING FOR 90 DAYS. 2024 active Not Available Not Available Not [...] 1 CAPSULE BY MOUTH DAILY IN THE [facility] 07/08 completed Not Available Not Available Not Available Premarin 0.625 mg/gram vaginal cream Insert 1 applicat orful twice a week by vaginal route. 10/19 completed Not Available Not Available Not Available vitamin D97-vnggr acid injection solution Take by injectio n route. 06/25 completed once a month Not Available Not Available Not Available bupropion HCl XL 300 mg 24 hr tablet, extended release TAKE 1 TABLET BY MOUTH DAILY IN [facility] active Not Available Not Available No t [...] Updated DateTime 4 168.91 cm 39.4 kg/m2 564247. 26 g 98.2 [degF] 88 /min 20 /min 98 % 98 % 134 mm[Hg] 80 mm[Hg] Iban Mao [facility] 4 16:13:31 Date Recorded Pain severity - 0-10 verbal numeric rating [Score] - Reported Provider Name and Address Organization Details Last Updated DateTime 11/10/202304 December SHARI La [facility] 11/10/2023 16:46:57 Date Recorded Body height Body mass index (BMI) Body weight Body temperature Respiratory rate Heart rate Oxygen saturation Oxygen saturation in Arterial blood by Pulse oximetry Systolic blood pressure Diastolic blood pressure Provider Name and Address Organization Details Last Updated DateTime 4 168.91 cm 40.2 kg/m2 503419. 22 g 98.6 [degF] 20 /min 96 /min 98 % 98 % 136 mm[Hg] 76 mm[Hg] Iban Mao [facility] 4 14:20:26 Date Recorded Body height Body mass index (BMI) Body weight Body temperature Heart rate Respiratory rate Oxygen saturation Oxygen saturation in Arterial blood by Pulse oximetry Systolic blood pressure Diastolic blood pressure Provider Name and Address Organization Details Last Updated DateTime 4 168.91 cm 40.1 kg/m2 241506. 64 g 98.4 [degF] 78 /min 20 /min 98 % 98 % 134 mm[Hg] 70 mm[Hg] Iban Mao [facility] 4 12:29:58 Date Recorded Body height Body mass index (BMI) Body weight Body temperature Heart rate Systolic blood pressure Diastolic blood pressure Provider Name and Address Organization Details Last Updated DateTime 4 168.91 cm 40.9 kg/m2 493267. 04 g 97.3 [degF] 92 /min 124 mm[Hg] 86 mm[Hg] Allie Ferreira RN [facility] 4 12:27:29 Date Recorded Oxygen saturation Oxygen saturation in Arterial blood by Pulse oximetry Provider Name and Address Organization Details Last Updated DateTime 07/08/2024 96 % 96 % Adis Lloyd MD [address] [place] [address], [address], [place], [address], [facility] 07/08/2024 12:33:42 Date Recorded Body height Body mass index (BMI) Body weight Body temperature Oxygen saturation Oxygen saturation in Arterial blood by Pulse oximetry Heart rate Systolic blood pressure Diastolic blood pressure Provider Name and Address Organization Details Last Updated DateTime 5 168.91 cm 42.5 kg/m2 657907. 21 g 97.6 [degF] 95 % 95 % 90 /min 128 mm[Hg] 92 mm[Hg] Kasey Flores RN [facility] 12:09:50 Social History Question Answer Notes LastModified by Organization Details LastModified Time Tobacco Smoking Status Never Smoker Daniela jaimes [facility] 09/03/2023 11:42:04 Do You Have An Advance Directive? No Patient Declined Informatio n. [id number] Information not available 10/30/2022 What Is Your Level Of Alcohol Consumption? Occasional [id number] Information not available 10/30/2022 Do You Wear A Helmet When Biking? No [email or web address] Information not available 09/03/2023 What Is Your Level Of Caffeine Consumption? Occasional [id number] Information not available 10/30/2022 In The 14 Days Before Symptom Onset, Have You Had Close Contact With A Laboratory-conf irmed COVID-19 While That Case Was Ill? No [email or web address] Information not available 09/03/2023 In The 14 Days Before Symptom Onset, Have You Had Close Contact With A Person Who Is Under Investigation For COVID-19 While That Person Was Ill? No Information not available 09/03/2023 What Type Of Diet Are You Following? REGULAR [id number] Information not available 10/30/2022 Which Illicit Or Recreational Drugs Have You Used? No [email or web address] Information not available 09/03/2023 Do You Or Have You Ever Used E-cigarettes Or Vape? Never Used Electronic Cigarettes [email or web address] Information not available 09/03/2023 What Is The Highest Grade Or Level Of School You Have Completed Or The Highest Degree You Have Received? [id number] [email or web address] Information not available 09/03/2023 Have There Been Any Changes To Your Family Or Social Situation? No [email or web address] Information not available 09/03/2023 What Is The Fluoride Status Of Your Home? Unknown [email or web address] Information not available 09/03/2023 Are There Any Guns Present In Your Home? No [email or web address] Information not available 09/03/2023 Do You Use Insect Repellent Routinely? Yes [email or web address] Information not available 09/03/2023 Where Do You Live? SingleLevelHouse [email or web address] Information not available 09/03/2023 Advance Directive- Providers Has Reviewed Directive And Consents To Follow Them (insert Provider Name With Any Objectives In Notes Field) No [id number] Information not available 10/30/2022 Do You Have A Medical Power Of Labor Mediator? No [email or web address] Information not available 09/03/2023 What Was The Date Of Your Most Recent Tobacco Screening? 11/10/2023 Information not available 11/10/2023 Do You Have Any Pets? No [email or web address] Information not available 09/03/2023 What Is Your Relationship Status? [id number] Information not available 10/30/2022 Do You Use Your Seat Belt Or Car Seat Routinely? Yes [email or web address] Information not available 09/03/2023 Do You Have Smoke And Carbon Monoxide Detectors In Your Home? Yes [email or web address] Information not available 09/03/2023 Are You Passively Exposed To Smoke? No [email or web address] Information not available 09/03/2023 Do You Or Have You Ever Used Smokeless Tobacco? Never Used Smokeless Tobacco [id number] Information not available 10/30/2022 Are There Any Smokers In Your House? No [email or web address] Information not available 09/03/2023 Do You Participate In Social Media? Yes [email or web address] Information not available 09/03/2023 Do You Feel Stressed (tense, Restless, Nervous, Or Anxious, Or Unable To Sleep At Night)? [id number] [email or web address] Information not available 09/03/2023 Do You Use Any Illicit Or Recreational Drugs? No [email or web address] Information not available 09/03/2023 Do You Use Sunscreen Routinely? Yes [email or web address] Information not available 09/03/2023 Has Tobacco Cessation Counseling Been Provided? No Information not available 09/03/2023 Have You Recently Traveled Abroad? No [email or web address] Information not available 09/03/2023 Are You Currently In School? No [email or web address] Information not available 09/03/2023 Do You Have Any Dietary Restrictions? No [email or web address] Information not available 09/03/2023 Do You Or Have You Ever Used Any Other Forms Of Tobacco Or Nicotine? No Information not available 09/03/2023 Sex: Female Functional Status Question Answer Note LastModified by Organizat ion Details LastModified Time What is your exercise level? None [id number] Information not available 10/30/2022 Mental Status None recorded. Family History Relationship Description Onset Age of this Age Resolved Age Notes LastModified by Organization Details LastModified Time Father Malignant tumor of esophagus Not available 2023 11:43:58 Paternal Grandfather Malignant tumor of esophagus Not available 2023 11:43:58 Brother Diabetes mellitus [email or web address] [id number] Not available 10/30/2022 02:51:47 Sister Diabetes mellitus [id number] Not available 10/30/2022 02:51:47 Mother Congestive heart failure [email or web address] Not available 2023 11:43:58 Mother Hypertensive disorder [email or web address] Not available 2023 11:43:58 Mother Heart disease [email or web address] Not available 2023 11:43:58 Sister Disorder of thyroid gland 3 sister s [email or web address] Not available 01/23/2023 10:05:42 Sister Disorder of thyroid gland [email or web address] Not available 2023 11:43:58 Brother Disorder of thyroid gland [email or web address] Not available 2023 11:43:58 Medical History Condition Response EDEMA Y SURGERY Y FEMALE PROBLEMS / INFECTIONS DEPRESSION (INCLUDING POST ) Y POLYCYSTIC OVARIES Y OBESITY Y GERD/NAUSEA Y EXCESSIVE PERSPIRATION Y OSTEOPOROSIS Y ARTHRITIS Y HEARTBURN / REFLUX Y GOUT Y SLEEP DISORDER Y GI PROBLEMS Y CHEMOTHERAPY / RADIATION N HYPERTENSION Y CANCER: SPECIFY Y ANXIETY DISORDER Y ANEMIA/BLOOD DISORDER Y Gynecological History Statement/Question Response Date of [...] Recorded Time COVID-19 PS Non-US Vaccine (EpiVacCorona) completed Not Available [facility] 10/30/2022 03:08:20 COVID-19 PS Non-US Vaccine (EpiVacCorona) 05/17/202 1 completed Not Available [facility] 10/30/2022 03:08:20 Hep A, adult 1 completed Not Available [facility] 10/30/2022 03:08:20 Influenza, split virus, quadrivalent, PF 0 completed Not Available [facility] 10/30/2022 03:08:20 Influenza, split virus, quadrivalent, PF 9 completed Not Available [facility] 10/30/2022 03:08:20 pneumococcal polysaccharide PPV23 9 completed Not Available [facility] 10/30/2022 03:08:20 Hep B, adult 8 completed Not Available [facility] 10/30/2022 03:08:21 Influenza, split virus, quadrivalent, PF 8 completed Not Available [facility] 10/30/2022 03:08:21 Hep B, adult 8 completed Not Available [facility] 10/30/2022 03:08:21 Hep B, adult 7 completed Not Available [facility] 10/30/2022 03:08:21 Influenza, split virus, quadrivalent, PF 2 completed Not Available [facility] 10/30/2022 03:08:21 Hep A, adult 1 completed Not Available [facility] 10/30/2022 03:08:21 Influenza, split virus, quadrivalent, PF 1 completed Not Available [facility] 10/30/2022 03:08:21 Influenza, split virus, quadrivalent, PF 7 completed Not Available [facility] 10/30/2022 03:08:21 Influenza, split virus, trivalent, PF 4 completed Iban jaimes [place] [facility] 06/22/2024 16:32:04 Tdap 4 completed Iban Mao null, [place] [facility] 06/22/2024 16:32:04 Past Encounters Encounter ID Performer Location Encounter Start Date Encounter Closed Date Diagnosis/Indication Diagnosis SNOMED-CT Code Diagnosis ICD10 Code Diagnosis Note [id number] Adis Lloyd MD [facility] [place] [address] [place] [address] 11/22/2020 00:00:00 11/22/2020 12:00:37 [id number] [facility] _ATHENA_M IGRATION_ DEFAULT_1 _1 , 12/21/2020 00:00:00 12/21/2020 18:01:50 [id number] Adis Lloyd MD [facility] [place] [address] [place] [address] 12/21/2020 00:00:00 12/21/2020 12:30:10 [id number] Adis Lloyd MD [facility] [place] [address] [place] [address] 01/18/2021 00:00:00 01/18/2021 12:36:21 [id number] Adis Lloyd MD [facility] [place] [address] [place] [address] 02/15/2021 00:00:00 02/15/2021 12:29:14 [id number] Adis Lloyd MD [facility] [place] [address] [place] [address] 05/31/2021 00:00:00 05/31/2021 15:04:58 [id number] Adis Lloyd MD [facility] [place] [address] [place] [address] 06/18/2021 00:00:00 06/18/2021 13:19:28 [id number] Adis Lloyd MD [facility] [place] [address] [place] [address] 08/14/2021 00:00:00 08/14/2021 14:50:27 [id number] Adis Lloyd MD [facility] [place] [address] [place] [address] 10/10/2021 00:00:00 10/10/2021 11:52:49 [id number] Adis Lloyd MD [facility] [address] [place] [address] 11/21/2021 00:00:00 11/21/2021 11:15:22 [id number] Adis Lloyd MD [address] [address] 01/22/2022 00:00:00 01/22/2022 10:42:12 [id number] Adis Lloyd MD [address] [address] 03/27/2022 00:00:00 03/27/2022 15:36:56 [id number] Adis Lloyd MD [address] [address] 05/08/2022 00:00:00 05/08/2022 18:10:06 [id number] Adis Lloyd MD [address] [address] 08/08/2022 00:00:00 08/08/2022 12:22:40 [id number] Adis Lloyd MD [address] [address] 11/19/2022 14:03:23 11/19/2022 14:42:13 Hypothyroidism 85111154 E03.9 Chronic low back pain 27 3879670 M54.50 Chronic pain syndrome 37 4440991 G89.4 Gouty arthropathy 823802 008 M10.09 Hypertensive disorder 38 072856 I10 Lumbar spondylosis 11754 0009 M47.896 Obesity 392973304 E66.9 Polyarthropathy 47182377 M13.0 Chronic ki dney disease stage 3 226289933 N18.30 [id number] Marlin Pruett MD [facility] [place] [address] [place] [address] 01/23/2023 09:28:47 01/23/2023 10:38:31 Hypothyroidism 59229159 E03.9 She was not able to tolerate [...] and minerals and reduce inflammati on. Fatigue 72882373 R53.83 Will send for thyroid antibodies to screen for autoimmune thyroid disease in addition to CBC, CMP, ferritin, GIORGIO/rheuma toid screen and B12/folate to screen for other potential secondary causes of fatigue. Liver enzy mes level above reference range 792590731 R74.8 Send for liver ultrasound along with [...] she chooses to go outside of the [facility] system to obtain labwork she was [...] ing. Thank you for this consultati on. [id number] Adis Lloyd MD [address] [address] 02/18/2023 11:40:57 02/18/2023 12:30:38 Hypothyroidism 65786097 E03.9 Chronic low back pain 27 5026942 M54.50 Chronic pain syndrome 37 8822349 G89.4 Gouty arthropathy 427503 008 M10.09 Hypertensive disorder 38 336939 I10 Lumbar spondylosis 06989 0009 M47.896 Obesity 713293195 E66.9 Polyarthropathy 55089217 M13.0 Chronic ki dney disease stage 3 052986031 N18.30 Memory impairment 364479 006 R41.3 [id number] Adis Lloyd MD [address] [address] 03/25/2023 12:35:02 03/25/2023 14:03:46 Hypothyroidism 31604295 E03.9 Chronic low back pain 27 5774840 M54.50 Chronic pain syndrome 37 7110063 G89.4 Gouty arthropathy 427124 008 M10.09 Hypertensive disorder 38 916415 I10 Lumbar spondylosis 52385 0009 M47.896 Obesity 272869641 E66.9 Polyarthropathy 47187578 M13.0 Chronic ki dney disease stage 3 406624920 N18.30 Memory impairment 467142 006 R41.3 Obsessive- compulsive disorder 906264734 F42.9 Gastroesop hageal reflux disease without esophagitis 618385456 K21.9 [id number] Adis Lloyd MD [address] [address] 04/29/2023 12:09:36 04/29/2023 13:02:24 Hypothyroidism 66677532 E03.9 Chronic low back pain 27 5731951 M54.50 Chronic pain syndrome 37 5336525 G89.4 Gouty arthropathy 354240 008 M10.09 Hypertensive disorder 38 641783 I10 Lumbar spondylosis 82316 0009 M47.896 Obesity 845046480 E66.9 Polyarthropathy 64053154 M13.0 Chronic ki dney disease stage 3 232769766 N18.30 Memory impairment 440684 006 R41.3 Obsessive- compulsive disorder 187183588 F42.9 Gastroesop hageal reflux disease without esophagitis 837967152 K21.9 [id number] Adis Lloyd MD [address] [address] 09/03/2023 11:41:41 09/03/2023 12:45:10 Hypothyroidism 16286737 E03.9 Chronic low back pain 27 0723009 M54.50 Chronic pain syndrome 37 8109029 G89.4 Gouty arthropathy 009551 008 M10.09 Hypertensive disorder 38 451839 I10 Lumbar spondylosis 98907 0009 M47.896 Obesity 724574365 E66.9 Polyarthropathy 54223701 M13.0 Chronic ki dney disease stage 3 863647354 N18.30 Memory impairment 111744 006 R41.3 Obsessive- compulsive disorder 481406187 F42.9 Gastroesop hageal reflux disease without esophagitis 495484629 K21.9 Screening for osteoporosis 898017508 Z13.820 Screening mammography 24 601082 Z12.31 [id number] Adis Lloyd MD [address] [address] 11/10/2023 15:58:23 11/10/2023 16:45:31 Adult health examination 487984182 Z00.00 Screening for disorder 119507381 Z13.9 Hypothyroidism 28476029 E03.9 Chronic low back pain 27 2993477 M54.50 Chronic pain syndrome 37 7765418 G89.4 Gouty arthropathy 584920 008 M10.09 Hypertensive disorder 38 616431 I10 Lumbar spondylosis 06786 0009 M47.896 Obesity 696003194 E66.9 Polyarthropathy 47978940 M13.0 Chronic ki dney disease stage 3 527560711 N18.30 Memory impairment 338456 006 R41.3 Obsessive- compulsive disorder 046485808 F42.9 Gastroesop hageal reflux disease without esophagitis 427389498 K21.9 [id number] Adis Lloyd MD [address] [address] 05/11/2024 14:11:07 05/11/2024 14:45:49 Hypothyroidism 66651503 E03.9 Chronic low back pain 27 9923405 M54.50 Chronic pain syndrome 37 1711948 G89.4 Gouty arthropathy 416144 008 M10.09 Hypertensive disorder 38 835137 I10 Lumbar spondylosis 78356 0009 M47.896 Obesity 286972588 E66.9 Polyarthropathy 81978798 M13.0 Chronic ki dney disease stage 3 221419552 N18.30 Memory impairment 900747 006 R41.3 Obsessive- compulsive disorder 150928022 F42.9 Gastroesop hageal reflux disease without esophagitis 454820408 K21.9 Mammography abnormal 168 797052 R92.8 [id number] Adis Lloyd MD [address] [address] 06/22/2024 12:14:49 06/22/2024 14:00:28 Gouty arthropathy 182525203 M10.09 Chronic pain syndrome 37 1191858 G89.4 Hypothyroidism 40448941 E03.9 Chronic low back pain 27 6774130 M54.50 Hypertensive disorder 38 660968 I10 Lumbar spondylosis 58730 0009 M47.896 Obesity 712232775 E66.9 Polyarthropathy 89772428 M13.0 Chronic ki dney disease stage 3 478571459 N18.30 Memory impairment 253341 006 R41.3 Obsessive- compulsive disorder 254222035 F42.9 Gastroesop hageal reflux disease without esophagitis 403434466 K21.9 Mammography abnormal 168 708015 R92.8 Administra tion of influenza vaccine 64811390 Z23 Active immunization 3387 9002 Z23 Impacted c erumen of bilateral ears 2311963304 135122 H61.23 [id number] Adis Lloyd MD [address] [address] 07/08/2024 12:04:45 07/08/2024 12:59:55 Chronic pain syndrome 388955882 G89.4 Gouty arthropathy 638413 008 M10.09 Hypothyroidism 38996214 E03.9 Chronic low back pain 27 8973565 M54.50 Hypertensive disorder 38 852826 I10 Lumbar spondylosis 73816 0009 M47.896 Obesity 818170693 E66.9 Polyarthropathy 33625158 M13.0 Chronic ki dney disease stage 3 488975010 N18.30 Memory impairment 568498 006 R41.3 Obsessive- compulsive disorder 717231563 F42.9 Gastroesop hageal reflux disease without esophagitis 810250955 K21.9 Impacted c erumen of bilateral ears 8538819058 083531 H61.23 [id number] Adis Lloyd MD [facility] [address] [address] 10/12/2024 11:56:32 10/12/2024 12:46:26 Hypothyroidism 78250828 E03.9 Chronic low back pain 27 6885190 M54.50 Chronic pain syndrome 37 3586778 G89.4 Gouty arthropathy 558059 008 M10.09 Hypertensive disorder 38 462156 I10 Lumbar spondylosis 33349 0009 M47.896 Obesity 437220468 E66.9 Polyarthropathy 88990515 M13.0 Chronic ki dney disease stage 3 707455497 N18.30 Memory impairment 053511 006 R41.3 Obsessive- compulsive disorder 182937530 F42.9 Gastroesop hageal reflux disease without esophagitis 753955063 K21.9 Impacted c erumen of bilateral ears 4235140942 093152 H61.23 Screening mammography 24 937748 Z12.31 Allergic c ontact dermatitis 540431677 L23.9 Health Concerns Section Related Observation LastModified by Organization Detai ls LastModified Time None Recorded Concern Status LastModified by Organization Details LastModified Time None Recorded Advance Directives Directive N: Patient declined informat ion. Payers Encounter Date Sequence Insurance Name Policy Number Policy Murray Covered Member ID Murray Member ID Guarantor Name 11/10/2023 1 [facility] (MEDICARE REPLACEMENT/AD VANTAGE - HMO) [id number] Monica Rolon [id number] Monica Rolon 11/10/2023 2 [place] OR MEDICARE REPLACEMENT PRIMARY) Monica Rolon [id number] Monica Rolon 05/11/2024 1 [facility] (MEDICARE REPLACEMENT/AD VANTAGE - HMO) [id number] Monica Rolon [id number] Monica Rolon 05/11/2024 2 [place]ARE REPLACEMENT [place]IMARY) Monica Rolon [id number] Monica Rolon 06/22/2024 1 [facility] (MEDICARE REPLACEMENT/AD VANTAGE - HMO) [id number] Monica Rolon [id number] Monica Rolon 06/22/2024 2 [place] OR MEDICARE REPLACEMENT [place]IMARY) Monica Rolon [id number] Monica Rolon 07/08/2024 1 [facility] (MEDICARE REPLACEMENT/AD VANTAGE - HMO) [id number] Monica Rolon [id number] Monica Rolon 07/08/2024 2 [place]ARE OR MEDICARE REPLACEMENT PRIMARY) Monica Rolon [id number] Monica Rolon 10/12/2024 1 [facility] (MEDICARE REPLACEMENT/AD VANTAGE - HMO) [id number] Monica Rolon [id number] Monica Rolon 10/12/2024 2 [place] WHEN [place]ARE OR MEDICARE REPLACEMENT PRIMARY) Monica Rolon [id number] Monica Rolon Notes Date Note Type Note [...] she was seeing before for this at [place] [facility] is gone and she will need to see another provider for this in future.Pt is f/u with her Bariatric surgeon and got another procedure done on 08/01/21 and she is f/u with them. Pt is f/u with Pain clinic at [facility] and is doing overall better with them.Pt saw breast surgeon at [place] for her abnormal mammo result and they did testing and it all came back good, no concern with it.Pt has seen GI and had EGD and colonoscopy done with her GI and all came back good as per pt.Pt has seen Cardio at [facility] and all her heart testing came back good as per pt.Pt has seen Mixing Tumbler Operator at [facility] and got multiple testing done with them and everything came back good as per pt.Pt is f/u with Psych at and counsellor for her mood concerns. Doing overall Ok with her mood. Denies any SI/HI. Denies any problems with any of her meds.Pt saw spine surgeon at [place] for her chronic back pain and they did not recommend any procedure for her. Adis Lloyd MD [address] [place] [address], [place] [address], [place], [address], [place] [facility] 11/10/2023 17:04:31 05/11/2024 text/html Pt is here [...] she was seeing before for this at [place] [facility] is gone and she will need to see another provider for this in future.Pt is f/u with her Bariatric surgeon and got another procedure done on 08/01/21 and she is f/u with them. Pt is f/u with Pain clinic at [facility] and is doing overall better with them.Pt saw breast surgeon at [place] for her abnormal mammo result and they did testing and it all came back good, no concern with it.Pt has seen GI and had EGD and colonoscopy done with her GI and all came back good as per pt.Pt has seen Cardio at [facility] and all her heart testing came back good as per pt.Pt has seen Mixing Tumbler Operator at [facility] and got multiple testing done with them and everything came back good as per pt.Pt is f/u with Psych at [facility] for her mood concerns. Doing overall Ok with her mood. Denies any SI/HI. Denies any problems with any of her meds.Pt saw spine surgeon at [place] for her chronic back pain and they did not recommend any procedure for her. Adis Lloyd MD [address] [facility], [address], [place], [address], [facility] 05/11/2024 14:43:38 06/22/2024 text/html Pt is here [...] she was seeing before for this at [place] [facility] is gone and she will need to see another provider for this in future.Pt is f/u with her Bariatric surgeon at [facility] and got another procedure done on 08/01/21 and she is f/u with them. Pt is f/u with Pain clinic at [facility] and is doing overall better with them.Pt saw breast surgeon at [place] for her abnormal mammo result and they did testing and it all came back good, no concern with it.Pt has seen GI and had EGD and colonoscopy done with her GI and all came back good as per pt.Pt has seen Cardio at [facility] and all her heart testing came back good as per pt.Pt has seen Mixing Tumbler Operator at [facility] and got multiple testing done with them and everything came back good as per pt.Pt is f/u with Psych at [facility] for her mood concerns. Doing overall Ok with her mood. Denies any SI/HI. Denies any problems with any of her meds.Pt saw spine surgeon at [place] for her chronic back pain and they did not recommend any procedure for her. Adis Lloyd MD [address], [address], [place], [address], [facility] 06/22/2024 12:57:32 07/08/2024 text/html Pt is here [...] she was seeing before for this at [facility] [place] [facility] is gone and she will need to see another provider for this in future.Pt is f/u with her Bariatric surgeon at [facility] and got another procedure done on 08/01/21 and she is f/u with them. Pt is f/u with Pain clinic at [facility] and is doing overall better with them. Pt will be getting spinal cord stimulator placement with them on 08/05/24.Pt saw breast surgeon at [place] for her abnormal mammo result and they did testing and it all came back good, no concern with it.Pt has seen GI and had EGD and colonoscopy done with her GI and all came back good as per pt.Pt has seen Cardio at [facility] and all her heart testing came back good as per pt.Pt has seen Mixing Tumbler Operator at [facility] and got multiple testing done with them and everything came back good as per pt.Pt is f/u with Psych at [facility] for her mood concerns. Doing overall Ok with her mood. Denies any SI/HI. Denies any problems with any of her meds.Pt saw spine surgeon at [place] for her chronic back pain and they did not recommend any procedure for her. Adis Lloyd MD [address], [address], [place], [address], [facility] 07/08/2024 12:51:03 10/12/2024 text/html Pt is here for f /u on her meds and b/l ear flushing. Doing overall well with her current meds and denies any problem with them. Denies any new concerns. Pt got cervical spinal fusion surgery & thoracic laminectomy done with her Spine surgeon at [place]. Pt is f/u with Pain clinic at [facility] and is doing overall better with them.Pt did not tolerate Levothyroxine. Pt has tried 4 different timing for it, but she still got s/e from it. So she stopped taking it and her symptoms resolved next day.Pt is requesting refill on Hydroxyzine for her chronic itching as the specialist she was seeing before for this at [facility] [place] [facility] is gone and she will need to see another provider for this in future.Pt is f/u with her Bariatric surgeon at [facility] and got another procedure done on 08/01/21 and she is f/u with them. Pt saw breast surgeon at [place] for her abnormal mammo result and they did testing and it all came back good, no concern with it.Pt has seen GI and had EGD and colonoscopy done with her GI and all came back good as per pt.Pt has seen Cardio at [facility] and all her heart testing came back good as per pt.Pt has seen Mixing Tumbler Operator at [facility] and got multiple testing done with them and everything came back good as per pt.Pt is f/u with Psych at [facility] for her mood concerns. Doing overall Ok with her mood. Denies any SI/HI. Denies any problems with any of her meds.Pt saw spine surgeon at [place] for her chronic back pain and they did not recommend any procedure for her. Adis Lloyd MD [address] [place] [address], [facility] [address], [place], [address], [place] [facility] [employer] [facility] 10/12/2024 12:38:22 OBGyn Episode No OBEpisode recorded.
--- OUTSIDE RECORDS SUMMARY | 2025-01-03 10:27 | XMS_ITS | Encounter Summary ---
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
--- OUTSIDE RECORDS SUMMARY | 2025-01-03 10:27 | XMS_ITS | Encounter Summary ---
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
--- OUTSIDE RECORDS SUMMARY | 2025-01-03 10:27 | XMS_ITS | Clinical Summary ---
Author Organization [facility] Address [address] [place] [address] Care Team Providers Care Laundry Room Attendant Name Role Phone Unavailable Primary Care Provider Unavailabl e Social History Tobacco Use Types Packs/Day Years Used Date Smoking Tobacco: Never Assessed Comments Unknown Sex and Gender Information Value Date Recorded Sex Assigned at Not on file Legal Sex Female 10:25 PM IN STORE MARKETING ASSOCIATE Gender Identity Not on file Sexual Orientation Not on file Last Filed Vital Signs Vital Sign Reading Time Taken Comments Blood Pressure 108/70 07/11/2010 1:14 PM IN STORE MARKETING ASSOCIATE Pulse 80 07/11/2010 1:14 PM IN STORE MARKETING ASSOCIATE Temperature - - Respiratory Rate - - Oxygen Saturation - - Inhaled Oxygen Concentration - - Weight 90.3 kg (199 lb) 07/11/2010 1:14 PM IN STORE MARKETING ASSOCIATE Height - - Body Mass Index - [...] Screening with HPV 1991 Mammogram Screening 2001 Pneumococcal Vaccine: 50+ Ye ars (1 of 1 - PCV) 2011 Zoster Vaccines (1 of 2) 2011 COVID-19 Vaccine (2023-2 5 season) 2024 RSV Immunization or 60+ [...]
--- OUTSIDE RECORDS SUMMARY | 2025-01-03 10:27 | XMS_ITS | Encounter Summary ---
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
--- OUTSIDE RECORDS SUMMARY | 2025-01-03 10:27 | XMS_ITS | CONTINUITY OF CARE DOCUMENT ---
Author Name jorge hieumichael Address Unknown Organization [facility] Address [address] [place] [address] Phone [phone] Care Team Providers Care Compensation Agent Name Role Phone Rodney Mejia MD Unavailable SRIRAM STOVER MD Unavailable [phone] SRIRAM STOVER MD Unavailable PROBLEMS Condition Status Date Provider Notes Preoperative cardiovascular examination active Rodney Mejia MD Dizziness active Rodney Mejia MD HTN essential active Rodney Mejia MD Obesity active Rodney Mejia MD Shortness of breath on exertion active Kassie Mejia MD Palpitations active Rodney Mejia MD Family History of Hypertension: active Kassie Mejia MD Cardiology examination active Rodney Mejia MD ENCOUNTERS Date Type Provider Location Encounter Diag nosis - In-person encounter Office Visit Rodney Mejia MD [facility] - In-person encounter Office Visit Rodney Mejia MD [place] - In-person encounter Office Visit Rodney Mejia MD [facility] Preoperative cardiovascular examination - In-person encounter Office Visit [place] [facility] - In-person encounter Office Visit Rodney Mejia MD [facility] Cardiology examinationFamily History of Hypertension:Palpitations Shortness of breath on exertionObesityHTN essentialDizziness VITAL SIGNS Date Observation Value Provider Body Mass Index (Ratio) 40.35 kg/m2 Kassie Mejia MD blood pressure, cuff size regular mario Doug blood pressure, diastolic 96 mm[Hg] mario Doug blood pressure, systolic 128 mm[Hg] [facility] kasi Camacho pulse rate 86 /min [facility] oxygen saturation, oximetry 93 % [facility] respiratory rate E&M 20 /min [facility] weight E&M 250 [lb_av] [facility] Body Mass Index (Ratio) 44.22 kg/m2 Kassie [...] blood pressure, cuff size regular Cy francis Vizcrara height E&M 66 [in_i] Tami Jeremiahbel l temperature site temporal Mary Tank sle temperature E&M 97.5 [degF] [facility] Body Mass Index (Ratio) 41.31 kg/m2 [...] Payer name Policy type / Coverage type [place] red democrat ID [employer] Other AARP MEDICARE ADVANTAGE HMO-POS HMO [id number] [facility] Medicaid 2 [id number] ADVANCE DIRECTIVES Name Date DISCUSSED - NO DECISION MADE TREATMENT PLAN Date Name Performer [id number],B,S eems to have improved since anemia has been treated Rodney Mejia MD [id number],C, B P today: 119/90 P rior BP: 112/60 (12/22/2020) Rodney Mejia MD [id number],B,S he has lost about 10 lbs and [...]
== END 2025-01-03 09:44 | disposition home or self-care (01) ==
LOC: CHSIMG 09:46
PROVIDERS: PCP Family Medicine; Visit Provider Orthopaedic Surgery
DX: M25.562 Pain in left knee (principal); M17.12 Unilateral primary osteoarthritis, left knee
CPT/HCPCS: 73564

== ENCOUNTER 2025-01-18 14:59 | Outpatient (RCR) | payer MEDICARE, MEDICAID, SELFPAY ==
--- NOTE | 2025-01-18 15:58 | PTOPEVAL1 ---
Assessment and note entered by Eveline Segura DPT Evaluation Information Assessment Status Evaluation Diagnosis L foot pain, L knee pain, falls Other ICD-10 Condition Codes ( M79.672, M22.2X1, M22.2X2, M17.12, S93.602A PT) Onset 01/03/25 Subjective Information Patient reports she is having L knee and foot pain . She reports she has frequent falls. She reports she is having a consult for a L knee replacement on 02/16/[address] Domingo. She reports she also has a history of low back pain and has a stimulator but is not getting much relief. She reports she is not working. Patient reports pain is increased with walking, standing for long periods of time (greater than 5 min), and complete house hold tasks. She reports she is not using an AD would like to get a rollator. Reported Pain Level Pain Score 6,4: Self Report Assessment PT Clinical Summary Ms. Rolon is a 64 year old female who presents to PT with left foot and knee pain. She demonstrates decreased B LE strength, poor balance and impaired gait impairing her ability to navigate steps, stand to complete house hold tasks and ambulate prolonged periods of time. She would benefit from skilled PT to address impairments and return to OF. Plan of Care Interventions Gait Training,Hot Pack/Cold Pack,Intermittent Compression Pump,Manual Therapy,Neuro Re-education ,Patient/Caregiver Education,Therapeutic Activities,Therapeutic Exercise PT Services Indicated Yes Treatment Frequency and 2x weekly for 10 visits Duration These treatments will address the objective and functional deficits as defined above. The patient will be advanced safely and appropriately in order for the patient to progress towards his/her prior level of function. Additional exercises will be introduced and as well as a comprehensive home exercise program upon discharge, if needed, ?to ensure carryover of functional gains achieved in the clinic. This treatment plan has been reviewed and agreement upon by the patient.
--- NOTE | 2025-01-21 10:11 | PCPTNOTE ---
Cancelled session. Reports she is not feeling well and does not want to get anyone sick.
== END 2025-01-31 20:00 | disposition home or self-care (01) ==
LOC: CHSPT 14:59
PROVIDERS: Visit Provider Orthopaedic Surgery
DX: M79.672 Pain in left foot (principal); M22.2X1 Patellofemoral disorders, right knee; M22.2X2 Patellofemoral disorders, left knee; M17.12 Unilateral primary osteoarthritis, left knee; S93.602D Unspecified sprain of left foot, subsequent encounter
CPT/HCPCS: 97110; 97112; 97161; 97530

== ENCOUNTER 2025-03-21 10:11 | Outpatient (CLI) | payer MEDICARE, MEDICAID, SELFPAY ==
--- NOTE | ~2025-03-21 | MMUS_ITS ---
EXAMINATION: MM diagnostic nay implant BI w sandhya, US breast LT limited HISTORY: BI-RADS 3 Follow-up left breast asymmetry and screening right breast TECHNIQUE: 3-D tomosynthesis images of the breasts were performed and synthetic 2-D images were gene rated. CAD analysis was submitted and interpreted. High resolution Limited left breast ultrasound wa s performed. Targeted ultrasound evaluation of the left breast was completed. COMPARISON: Comparison to multiple prior studies sequentially, with oldest reviewed study dated 09/30. BREAST PARENCHYMAL COMPOSITION: Not dense: There are scattered areas of fibroglandular density. MAMMOGRAPHIC FINDINGS: Asymmetries in the upper central aspect of the left breast is unchanged. There are no suspicious calc ifications or architectural distortion. No new masses, calcifications or architectural distortion. Bilateral retropectoral saline implants are intact. ULTRASOUND: Limited left breast ultrasound: At 1:00, 5 cm from the nipple there is an oval 4 mm mass which may re present a complicated cyst and correlate to previously reported mass at 12:00, 5 cm location is uncha nged. The additional cysts identified at 1:00, 5 cm from the nipple, are unchanged. The cysts were re ported at 12:00 location on prior examination. IMPRESSION: 1. Probable benign left breast masses demonstrate about 18 months stability since the initial evaluat ion on 10/17/2023. 2. Recommend 12 month follow-up diagnostic bilateral mammogram and Limited left breast ultrasound BI-RADS category 3, probably benign findings. Reviewed, dictated and finalized at location B. IMPRESSION: 1. Probable benign left breast masses demonstrate about 18 months stability sin ce the initial evaluation on 10/17/2023. 2. Recommend 12 month follow-up diagnostic bilateral mammogram and Limited left breast ultrasound BI-RADS category 3, probably benign findings.
--- OUTSIDE RECORDS SUMMARY | 2025-03-21 10:32 | XMS_ITS | Clinical Summary ---
Author Organization [facility] Address [address] [place] [address] Care Team Providers Care Log Inspector Name Role Phone Adis Lloyd Primary Care Provider Unavailab le Source Comments [facility],non-owned Affiliates and Associated Physician Practices is amultiple site organization consisting of ambulatory clinics and hospital sitesin [place], [place], [place] and [place]. This disclosure is being madepursuant to the Care Everywhere program and may not contain all information available regarding this patient. Last updated 18.[facility] Allergies Active Allergy Reactions Criticality Noted Date [...] Active vitamine D3 (CHOLECALCIFERO L) 250 MCG (57615 UT) capsule Take 10,000 Units by mouth [...] (AF LURIA, FLUZONE TRIVALENT; 6MO+) (IIV3) 09/30/2016 VOIP [place] primary monoval ent 12+ yr 0.3mL Purple [...] Comments Blood Pressure 118/78 08/23/2021 2:30 PM LEAD CLINICAL RESEARCH COORDINATOR Pulse 68 08/23/2021 2:30 PM LEAD CLINICAL RESEARCH COORDINATOR Temperature 36.8 C (98.3 F) 08/23/2021 2:30 PM LEAD CLINICAL RESEARCH COORDINATOR Respiratory Rate 18 08/23/2021 2:30 PM LEAD CLINICAL RESEARCH COORDINATOR Oxygen Saturation 98% 08/23/2021 2:30 PM LEAD CLINICAL RESEARCH COORDINATOR Inhaled Oxygen Concentration - - Weight 118.3 kg (260 lb 12.8 oz) 08/23/2021 2:30 PM LEAD CLINICAL RESEARCH COORDINATOR Height 170.2 cm (5' 7) 08/23/2021 2:30 PM LEAD CLINICAL RESEARCH COORDINATOR Body Mass Index 40.85 08/23/2021 2:30 PM LEAD CLINICAL RESEARCH COORDINATOR Plan of Treatment Health Maintenance Due Date Last Done Comments COLOGUARD (AGES 45-75) - COLON CA SCREENING 1961 CT COLONOGRAPHY - COLON CA SCREENING 1961 FIT - COLON CA SCREENING 1961 FLEX SIG - COLON CA SCREENING 1961 LIPID TESTING 1960 MAMMOGRAM 1961 ZOSTER VACCINE (1 of 2) 2011 DTAP/TDAP/TD VACCINES (2 - Td or Tdap) 11/03/2019 11/02/2009 PNEUMOCOCCAL VACCINE 50+ (2 of 2 - PCV) 02/23/2020 02/22/2019 Respiratory Syncytial Virus (RSV) Vaccine Pt: or over 60 yrs (1 - Risk 60-74 years 1-dose series) 2021 COVID-19 VACCINE (3 - season) 2024 02/07/2021, 01/15/2021 SCREENING FOR DIABETES 08/03/2024 , 08/01/2021, 03/30/2021, Additional history exists DEPRESSION SCREENING 09/01/2024 INFLUENZA VACCINE (#1) 2025 0, 07/27/2019, 07/15/2019, Additional history exists COLON MONITORING 07/24/2030 07/24/2020 COLONOSCOPY - COLON CA SCREENING 07/24/2030 07/24/2020 [...] COMPREHENSIVE METABOLIC PANEL STAT 08/03/2021 8:33 PM LEAD CLINICAL RESEARCH COORDINATOR HEPATITIS C ANTIBODY STAT 08/03/2021 8:33 PM LEAD CLINICAL RESEARCH COORDINATOR HIV-1 HIV-2 ANTIBODY + HIV P24 AG PANEL STAT 08/03/2021 8:33 PM LEAD CLINICAL RESEARCH COORDINATOR from Last 3 Months or Most Recently Relevant to Health Maintenance Results * HIV-1 HIV-2 ANTIBODY + HIV P24 AG PANEL (08/03/2021 8:33 PM LEAD CLINICAL RESEARCH COORDINATOR) HIV1/2 Ab + P24 Ag Non Reactive Non Reactive 08/03/2021 9:28 PM LEAD CLINICAL RESEARCH COORDINATOR [facility] Blood BLOOD SPECIMEN / Unknown Venipuncture / Unknown 08/03/2021 8:33 PM LEAD CLINICAL RESEARCH COORDINATOR 08/03/2021 8:46 PM LEAD CLINICAL RESEARCH COORDINATOR Narrative [facility] - 08/03/2021 9:28 PM LEAD CLINICAL RESEARCH COORDINATOR No Laboratory evidence of HIV infection. us Laurence Sahu MD LAB - CHEMISTRY ORDERABLES Final Result [facility] [address] [place] [address] * (ABNORMAL) COMPREHENSIVE METABOLIC PANEL (08/03/2021 8:33 PM LEAD CLINICAL RESEARCH COORDINATOR) Glucose 105 70 - 105 mg/dL 08/03/2021 9:13 PM [facility] Sodium 133(L) 136 - 145 mmol/L 08/03/2021 9:13 PM [facility] Potassium 4.4 3.5 - 5.1 mmol/L 08/03/2021 9:13 PM [facility] Chloride 100 98 - 107 mmol/L 08/03/2021 9:13 PM [facility] CO2 18(L) 23 - 31 mmol/L 08/03/2021 9:13 PM [facility] Calcium 9.6 8.4 - 10.4 mg/dL 08/03/2021 9:13 PM [facility] Anion Gap 15 8 - 18 mmol/L 08/03/2021 9:13 PM [facility] BUN 14 9.8 - 20.1 mg/dL 08/03/2021 9:13 PM [facility] Creatinine 0.85 0.57 - 1.11 mg/dL 08/03/2021 9:13 PM [facility] Alkaline Phosphatase 169(H) 40 - 150 U/L 08/03/2021 9:13 PM [facility] ALT 271(H) 0 - 61 U/L 08/03/2021 9:13 PM [facility] AST 152(H) 5 - 34 U/L 08/03/2021 9:13 PM [facility] Protein Total 7.3 6.4 - 8.3 gm/dL 08/03/2021 9:13 PM [facility] Albumin 3.9 3.2 - 4.6 gm/dL 08/03/2021 9:13 PM [facility] Bilirubin Total 1.1 0.2 - 1.2 mg/dL 08/03/2021 9:13 PM [facility] eGFR by MDRD >60 >60 mL/min/1.7 3m2 08/03/2021 9:13 PM [facility] eGFR by MDRD >60 >60 mL/min/1.7 3m2 08/03/2021 9:13 PM LEAD CLINICAL RESEARCH COORDINATOR [facility] Blood BLOOD SPECIMEN / Unknown Venipuncture / Unknown 08/03/2021 8:33 PM LEAD CLINICAL RESEARCH COORDINATOR 08/03/2021 8:46 PM LEAD CLINICAL RESEARCH COORDINATOR us Payton Cardona TECHNOLOGY RECRUITER-MEETING FACILITATOR LAB - CHEMISTRY OR DERABLES Final Result Performing Organization Address [facility] Co de Phone Number [facility] [address] [place] [address] * HEPATITIS C ANTIBODY (08/03/2021 8:33 PM LEAD CLINICAL RESEARCH COORDINATOR) [facility] HCV Antibody Screen Non Reactive Non Reactive 08/03/2021 10:14 PM LEAD CLINICAL RESEARCH COORDINATOR [facility] Blood BLOOD SPECIMEN / Unknown Venipuncture / Unknown 08/03/2021 8:33 PM LEAD CLINICAL RESEARCH COORDINATOR 08/03/2021 8:46 PM LEAD CLINICAL RESEARCH COORDINATOR Narrative [facility] - 08/03/2021 10:14 PM LEAD CLINICAL RESEARCH COORDINATOR Non Reactive - Antibodies to Hepatitis C virus (HCV) were not detected, result does not exclude early acute HCV infection. Laurence Sahu MD LAB - CHEMISTRY ORDERABLES Final Result Performing Organization Address [facility] de Phone Number [facility] [id number] [place] [phone] from Last 3 Months or Most Recently Relevant to Health Maintenance Insurance [facility] MANAG[facility] MEDICARE [facility] MEDICAID - [place] Advance Directives * Full Code (Latest Code Status on File) Date Activated Date Inactivated Comments 03/28/2021 4:55 PM 03/30/2021 2:51 PM Care Teams Log Inspector Relationship Specialty Start Date End Date Adis Lloyd Update Information PCP - General Family Medicine 08/07/20
--- OUTSIDE RECORDS SUMMARY | 2025-03-21 10:32 | XMS_ITS ---
Author Organization [facility] Address [facility] [address] [place] [address] Care Team Providers Care Bonding Agent Name Role Phone Corey Mortensen DO Unavailable [phone] Adis Lloyd MD Primary Care Provider [phone] Active Problems Problem Noted Date Diagnosed Date [...]
--- OUTSIDE RECORDS SUMMARY | 2025-03-21 10:32 | XMS_ITS | Referral Summary ---
Author Organization [facility] Address [address] [place] [address] Care Team Providers Care Reservoir Engineering Manager Name Role Phone Corey Mortensen DO Unavailable [phone] Adis Lloyd MD Primary Care Provider [phone] Encounters Date Type Department Care Team Description 03/10/2025 Telephone [facility] Dermatology [address] [place] [address] [address] [place] [address] Glenn Desai RPh Rx counseling 03/10/2025 Telephone [facility] [address] [place] [address] [address] [place] [address] Glenn Desai RPh Medication PA Approval 03/07/2025 3:30 PM CDT Office Visit [facility] [address] [place] [address] [address] [place] [address] Sasha Mcleod MD Prurigo nodularis (Primary Dx); Other pruritus 02/03/2025 1:30 PM CDT [facility] [address] [facility] [address] [place] [address] Adam David MD Memory impairment [R41.3] (Primary Dx); Idiopathic peripheral neuropathy [G60.9] 01/19/2025 [facility]phone [facility] [address] [place] [address] Outpatient Health 4th Floor [address] [place] [address] Adam David MD 01/04/2025 10:00 AM CDT Office Visit [facility]ermat[facility] [address] [facility] [address] [place] [address] Chitra France MD PhD Pruritus (Primary Dx); Skin-picking disorder; History of malignant melanoma; Multiple benign melanocytic nevi of upper and lower extremities and trunk from Last 3 Months Allergies Active Allergy Reactions Criticality Noted Date Comments Black Cohosh Itching High 11/13/2020 Clindamycin Unknown 03/27/2020 Fentanyl Itching,Unknown Low 06/21/2020 Morphine Itching High 08/18/2023 Tramadol Palpitations Low 01/26/2021 Medications gabapentin (NEURONTIN) 800 mg tablet TK 1 T PO TID UTD 2 07/06/20 18 Active amitriptyline (ELAVIL) 150 mg tablet Take 1 tablet (150 mg total) by mouth nightly Active calcium carbonate-nany min D3 (CALTRATE 600 + D) 1500 mg (600 mg elemental) -400 units per tablet Take 1 tablet by mouth daily Active QUEtiapine (SEROquel) 100 mg tablet Take 1.5 tablets (150 mg total) by mouth nightly 2 01/22/20 19 Active allopurinol (ZYLOPRIM) 100 mg tablet nightly 3 01/06/20 19 Active omeprazole (PriLOSEC) 20 mg capsule Take 1 capsule (20 mg total) by mouth daily 03/27/20 22 Active multivitamin-i tamiko-folic acid 18-400 mg-mcg tablet Take 1 tablet by mouth daily Active lidocaine (LIDODERM) 5 % Place 1 patch on the skin daily Active carvediloL (COREG) 6.25 mg tablet Take 1 tablet (6.25 mg total) by mouth 2 (two) times a day with meals 03/01/20 20 Active buPROPion XL (WELLBUTRIN XL) 150 mg 24 hr tablet Take 1 tablet (150 mg total) by mouth nightly Active levothyroxine (SYNTHROID) 75 mcg tablet Take 1 tablet (75 mcg total) by mouth washerette machine operator before breakfast Active buPROPion XL (WELLBUTRIN XL) 300 mg 24 hr tablet Take 1 tablet (300 mg total) by mouth nightly Take with 150 mg for total of 450 mg daily 07/29/20 23 Active cholecalcifero l (VITAMIN D-3) 5,000 unit tablet Take 1 tablet (5,000 Units total) by mouth daily Active busPIRone (BUSPAR) 10 mg tablet Take 1 tablet (10 mg total) by mouth 3 (three) times a day 12/02/19 24 Active diazePAM (VALIUM) 5 mg tablet Take 1 tablet (5 mg total) by mouth daily as needed 03/30/20 24 Active atomoxetine (STRATTERA) 80 mg capsule 06/15/20 24 Active cyclobenzaprin e (FLEXERIL) 5 mg tablet Take 1 tablet (5 mg total) by mouth 3 (three) times a day as needed for muscle spasms 30 tablet 08/04/20 24 Active hydrOXYzine (ATARAX) 50 mg tablet Take 1 tablet (50 mg total) by mouth 4 (four) times a day 360 tablet 3 01/05/20 25 026 Active dupilumab (DUPIXENT) 300 mg/2 mL pen injectorIndica tions:Atopic Dermatitis Inject 2 SQ on day 1, then inject 1 SQ on day 15 and day 29. Loading dose 8 mL 03/07/20 25 Active dupilumab (DUPIXENT) 300 mg/2 mL pen injectorIndica tions:Atopic Dermatitis Inject 2 mL (300 mg total) under the skin every 14 (fourteen) days Maintenance dose 4 mL 03/07/20 25 Active triamcinolone (KENALOG) 0.1 % creamIndicatio ns:Prurigo nodularis Apply topically 2 (two) times a day as needed for rash Apply up to twice daily as needed for itch/rash 453.6 g 03/07/20 25 Active nitrofurantoin monohydrate (MACROBID) 100 mg capsule Started Rx on 07/22/24. Finished 07/12/20 24 025 Discontinued(P atient Reported) dupilumab (DUPIXENT) 300 mg/2 mL pen injectorIndica tions:Atopic Dermatitis Inject 2 SQ on day 1, then inject 1 SQ on day 15 and day 29. Loading dose 8 mL 03/07/20 25 025 Discontinued dupilumab (DUPIXENT) 300 mg/2 mL pen injectorIndica tions:Atopic Dermatitis Inject 2 mL (300 mg total) under the skin every 14 (fourteen) days Maintenance dose 4 mL 11 03/07/20 25 025 Discontinued Active Problems Problem Noted Date Diagnosed Date [...] drink = 0.6 oz pur e alcohol) [facility] Spect[employer] Answer Date Recorded In the past 12 months has [employer]rency[employer], gas, oil, or water [employer] threatened to shut off services in your [...] often do you attend chur ch or pentecostalism services? Never 04/21/2024 Do you belong to any clubs o r organizations such as adventism groups, unions, fraternal or athletic groups, or [...] any time in the past 12 m [facility], were you homeless or living in a fci (including now)? No 04/21/2024 Personal Safety Answer Date Recorded Have you ever been in or are you currently in a harmful physical or emotional relationship or is someone making you feel afraid or unsafe? Denies 08/04/2024 Comments No Sex and Gender Information Value Date Recorded Sex Assigned at Not on file Legal Sex Female 9:40 PM INSIDE FINISHER Gender Identity Female 05/07/2022 3:54 PM CDT Sexual Orientation Straight 05/07/2022 3: 54 PM CDT Occupation Industry Job Start Date Job End Date Disabled Not on file Not on file Not on file Last Filed Vital Signs Vital Sign Reading Time Taken Comments Blood Pressure 135/94 02/03/2025 1:30 PM CDT Pulse 93 02/03/2025 1:30 PM CDT Temperature 36.6 C (97.9 F) 02/03/2025 1:30 PM CDT Respiratory Rate 20 02/03/2025 1:30 PM CDT Oxygen Saturation 98% 02/03/2025 1:30 PM CDT Inhaled Oxygen Concentration - - Weight 116.2 kg (256 lb 1.6 oz) 02/03/2025 1:30 PM CDT Height 167.6 cm (5' 6) 02/03/2025 1:30 PM CDT Body Mass Index 41.34 02/03/2025 1:30 PM CDT Plan of Treatment Not on file Medical Devices Implanted Type Area Fisher Terrapin Device Identifier Shelf Expiration Date Model / Serial / Lot Medtronic Inc Graft Bone Filler Jar [place] 6cc Putty [id number] - [id number] - [id number] Implanted:Qty: 1 on 04/20/2024 by Olaf Pascual MD at [facility] N/A: Spine Cervical Medtronic Inc 01/09/2026 [id number] / [id number] / Medtronic Inc Cage Spn Med 6d Acif Endoskeleton Tcs Nanolock [id number]-N - [id number] Implanted:Qty: 1 on 04/20/2024 by Olaf Pascual MD at [facility] N/A: Spine Cervical Medtronic Inc 05/22/2028 [id number] / / [id number] Medtronic Inc Cage Spn Med 6d Acif Endoskeleton Tcs Nanolock [id number] 6974-5426-N - [id number] Implanted:Qty: 1 on 04/20/2024 by Olaf Pascual MD at [facility] N/A: Spine Cervical Medtronic Inc 03/27/2028 [id number] / / [id number] Medtronic Inc Zevo 37mm 2 Level Spine Cervical Anterior Plate Bone Titanium [id number] - [id number] Implanted:Qty: 1 on 04/20/2024 by Olaf Pascual MD at [facility] N/A: Spine Cervical Medtronic Inc [id number] / / Medtronic Inc Zevo 3.5mm 17mm Variable Self Drill Spine Cervical Anterior Screw [id number] - [id number] Implanted:Qty: 2 on 04/20/2024 by Olaf Pascual MD at [facility] N/A: Spine Cervical Medtronic Inc [id number] / / Medtronic Inc Zevo 3.5mm 15mm Variable Self Drill Spine Cervical Anterior Screw [id number] - [id number] Implanted:Qty: 2 on 04/20/2024 by Olaf Pascual MD at [facility] N/A: Spine Cervical Medtronic Inc [id number] / / Medtronic Inc Screw Spinal Anterior Cervical Self Drilling Solid Zevo 4.0x17mm Titanium [id number] - [id number] Implanted:Qty: 2 on 04/20/2024 by Olaf Pascual MD at [facility] N/A: Spine Cervical Medtronic Inc [id number] / / Medtronic Inc Generator Pulse Inceptiv Sys Stm Electrcl Analges Implant [id number] - [id number] - [id number] Implanted:Qty: 1 on 08/04/2024 by Olaf Pascual MD at [facility] Spine Thoracic Medtronic Inc 07/15/2025 [id number] / [id number] / Medtronic Inc Specify Surescan 65cm 3 Column 16 Electrode Lead Nerve Stimulator [id number] - [id number] Implanted:Qty: 1 on 08/04/2024 by Olaf Pascual MD at [facility] Spine Thoracic Medtronic Inc [id number] / / [id number] Explanted Type Area Fisher Terrapin Device Identifier Shelf Expiration Date Model / Serial / Lot Medtronic Inc Vectris 5mm 60cm 1x8 Electrode Mri Lead Neurostimulator [id number] - [id number] Explanted:Qty: 1 on 10/28/2023 at [facility] N/A: Thoracic- Lumbar Spine Medtronic Inc 09/30/2027 [id number] / / [id number] Procedures Procedure Name Priority Date/Time Associated Diagnosis Comments DIAGNOSTIC MAMMOGRAM BILATERAL W JOEY W IMPLANTS Schedule Routine, Read Routine (OP Routine) 05/08/2022 11:14 AM CDT Abnormal mammography from Last 3 Months or Most Recently Relevant to Health Maintenance Results * Diagnostic Mammogram Bilateral w Joey w [...] Most Recently Relevant to Health Maintenance Insurance [facility] MEDICARE ADVANTAGE [facility] Address: [address] [address] [place] [address] IDFL [facility] MDCR HMO REF [facility] Address: [address] [address] [place] [address] IDPA IDPA [facility] MEDICARE ADVANTAGE [facility] Address: [address] [address] [place] [address] Advance Directives For more information, please contact: [phone] * Full Code (Latest Code Status on File) Date Activated Date Inactivated Comments 04/20/2024 1:08 PM 04/21/2024 7:29 PM Care Teams Reservoir Engineering Manager Relationship Specialty Start Date End Date Adis Lloyd MD [address] [facility] [place] [address] PCP - General 11/09/19 Corey Mortensen DO [address] [place] [address] Medical Oncologist/Hematologis t Hematology and Oncology 09/09/18
--- OUTSIDE RECORDS SUMMARY | 2025-03-21 10:32 | XMS_ITS | Clinical Summary ---
Author Organization [facility] Address [address] [place] [address] Phone Care Team Providers Care Log Operations Coordinator Name Role Phone Adis Lloyd MD Primary Care Provider [phone] Allergies Active Allergy Reactions Criticality Noted Date [...] Comments Blood Pressure 123/84 07/24/2020 1:52 PM PROGRAM SERVICES ASSISTANT Pulse 93 07/24/2020 1:52 PM PROGRAM SERVICES ASSISTANT Temperature 36.1 C (97 F) 07/24/2020 1:38 PM PROGRAM SERVICES ASSISTANT Respiratory Rate 16 07/24/2020 1:52 PM PROGRAM SERVICES ASSISTANT Oxygen Saturation 99% 07/24/2020 1:52 PM PROGRAM SERVICES ASSISTANT Inhaled Oxygen Concentration - - Weight 131.1 kg (289 lb) 07/24/2020 12:17 PM PROGRAM SERVICES ASSISTANT Height 170.2 cm (5' 7) 07/24/2020 12:17 PM PROGRAM SERVICES ASSISTANT Body Mass Index 45.26 07/24/2020 12:17 PM PROGRAM SERVICES ASSISTANT Plan of Treatment Health Maintenance Due Date [...] Colorectal Cancer Screening 07/24/2023 INFLUENZA VACCINE (#1) 2025 RSV VACCINE (60+ or ) (1 - 1-dose 75+ series) 02/10/2036 Procedures Procedure Name Priority Date/Time Associated Diagnosis Comments COLONOSCOPY REPORT 07/24/2020 1: 38 PM PROGRAM SERVICES ASSISTANT from Last 3 Months or Most Recently Relevant to Health Maintenance Results * COLONOSCOPY REPORT (07/24/2020 1:38 PM PROGRAM SERVICES ASSISTANT) Narrative Procedure Note Brady Orozco MD - 07/24/2020 1:37 PM CST [facility] Endoscopy Patient Name: Monica Rolon Procedure [...] of Addenda: [address]; [place] [address] Brady Orozco MD GI PROCEDURE ORDERABLES Angela l Result from Last 3 Months or Most Recently Relevant to Health Maintenance Insurance [place]ICAID [place] [facility] [id number] Advance Directives For more information, please contact: [phone] * Full Code (Latest Code Status on File) Date Activated Date Inactivated Comments 07/24/2020 12:16 PM 07/24/2020 5:03 PM Care Teams Log Operations Coordinator Relationship Specialty Start Date End Date Adis Lloyd MD PCP - General Student in an Organized Health Care Education/Training Program 06/20/20
--- OUTSIDE RECORDS SUMMARY | 2025-03-21 10:32 | XMS_ITS | Clinical Summary ---
Author Organization [facility] Address [address] [place] [address] Care Team Providers Care Brim Edge Trimmer Name Role Phone Corey Mortensen DO Unavailable [phone] Adis Lloyd MD Primary Care Provider [phone] Allergies Active Allergy Reactions Criticality Noted Date [...] (two) times a day with meals 03/01/20 Active buPROPion XL (WELLBUTRIN XL) 150 mg 24 hr tablet Take 1 tablet (150 mg total) by mouth nightly Active levothyroxine (SYNTHROID) 75 mcg tablet Take 1 tablet (75 mcg total) by mouth golf club maker before breakfast Active buPROPion XL (WELLBUTRIN XL) [...] capsule Started Rx on 07/22/24. Finished 07/12/20 025 Discontinued(P atient Reported) dupilumab (DUPIXENT) 300 [...] (fourteen) days Maintenance dose 4 mL 03/07/20 025 Discontinued Active Problems Problem Noted Date [...] Type Department Care Team Description 03/10/2025 Telephone [facility] Dermatology [address] [place] [address] [address] [place] [address] Glenn Desai RPh Rx counseling 03/10/2025 Telephone [facility] [address] [place] [address] [address] [place] [address] Glenn Desai RPh Medication PA Approval 03/07/2025 3:30 PM CDT Office Visit [facility] D[facility]at[facility] [address] [place] [address] [address] [place] [address] Sasha Mcleod MD Prurigo nodularis (Primary Dx); Other pruritus 02/03/2025 1:30 PM CDT Office Visit [facility] [address] [facility] [address] [place] [address] Adam David MD Memory impairment [R41.3] (Primary Dx); Idiopathic peripheral neuropathy [G60.9] 01/19/2025 Telephone [facility] [address] [place] [address] Health 4th Floor [address] [place] [address] Adam David MD 01/04/2025 10:00 AM CDT Office Visit [facility] D[facility]at[facility] [address] [facility]patient Health [address] [place] [address] Chitra France MD PhD Pruritus (Primary Dx); Skin-picking disorder; History of malignant melanoma; Multiple benign melanocytic nevi of upper and lower extremities and trunk from Last 3 Months Immunizations Immunization Administration [...] drink = 0.6 oz pur e alcohol) [facility] Utilities Answer Date Recorded In the past 12 months has e electric, gas, oil, or water company [...] often do you attend chur ch or amish services? Never 04/21/2024 Do you belong to any clubs o r organizations such as restorationist groups, unions, fraternal or athletic groups, or [...] were you homeless or living in a halfway (including now)? No 04/21/2024 Personal Safety Answer Date Recorded Have you ever been in or are you currently in a harmful physical or emotional relationship or is someone making you feel afraid or unsafe? 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 Gender Identity Female 05/07/2022 3:54 PM CDT [...] 02/03/2025 1:30 PM CDT Plan of Treatment Health Maintenance Due Date Last Done Comments Cervical Cancer Screening 1961 Colon Cancer Screening-Colonoscopy 1961 Depression Screening 1961 Hepatitis C Screening 1961 Regular Well Visit/Exam 18-64 1979 Zoster Vaccine (1 of 2) 2011 Covid-19 Vaccine (3 - 2023- season) 2024 02/07/2021, 01/15/2021 Breast Cancer Screening-Mammogram 09/30/2024 09/30/2023, 05/08/2022, 04/25/2021, Additional history exists Influenza Vaccine (#1) 2025 , 08/08/2022, 05/31/2021, Additional history exists DTaP/Tdap/Td Vaccine (3 - Td or Tdap) 06/22/2034 06/22/2024, 11/02/2009 Hepatitis B Screening Completed 07/20/2018 , 09/23/2017, 07/09/2017 Pneumococcal vaccine <65 Aged Out 02/22/2019 No longer eligible based on patient's age to complete this topic Medical Devices Implanted Type Area Liaison Planner Device Identifier Shelf Expiration Date Model / Serial / Lot Medtronic Inc Graft Bone Filler Jar [place] 6cc Putty [id number] - [id number] - [id number] Implanted:Qty: 1 on 04/20/2024 by Olaf Pascual MD at [facility] N/A: Spine Cervical Medtronic Inc 01/09/2026 [id number] / [id number] / Medtronic Inc Cage Spn Med 6d Acif Endoskeleton Tcs Nanolock [id number] 6512-4485-N - [id number] Implanted:Qty: 1 on 04/20/2024 by Olaf Pascual MD at [facility] N/A: Spine Cervical Medtronic Inc 05/22/2028 [id number] / / [id number] Medtronic Inc Cage Spn Med 6d Acif Endoskeleton Tcs Nanolock [id number] 2567-1476-N - [id number] Implanted:Qty: 1 on 04/20/2024 by Olaf Pascual MD at [facility] N/A: Spine Cervical Medtronic Inc 03/27/2028 [id number] / / [id number] Medtronic Inc Zevo 37mm 2 Level Spine Cervical Anterior Plate Bone Titanium [id number] - [id number] Implanted:Qty: 1 on 04/20/2024 by Olaf Pascual MD at [facility] N/A: Spine Cervical Medtronic Inc [id number] / / Medtronic Inc Zevo 3.5mm 17mm Variable Self Drill Spine Cervical Anterior Screw [id number] - [id number] Implanted:Qty: 2 on 04/20/2024 by Olaf Pascual MD at [facility] N/A: Spine Cervical Medtronic Inc [id number] / / Medtronic Inc Zevo 3.5mm 15mm Variable Self Drill Spine Cervical Anterior Screw [id number] - [id number] Implanted:Qty: 2 on 04/20/2024 by Olaf Pascual MD at [facility] N/A: Spine Cervical Medtronic Inc [id number] / / Medtronic Inc Screw Spinal Anterior Cervical Self Drilling Solid Zevo 4.0x17mm Titanium [id number] - [id number] Implanted:Qty: 2 on 04/20/2024 by Olaf Pascual MD at [facility] N/A: Spine Cervical Medtronic Inc [id number] / / Medtronic Inc Generator Pulse Inceptiv Sys Stm Electrcl Analges Implant [id number] - [id number] - [id number] Implanted:Qty: 1 on 08/04/2024 by Olaf Pascual MD at [facility] Spine Thoracic Medtronic Inc 07/15/2025 [id number] / [id number] / Medtronic Inc Specify Surescan 65cm 3 Column 16 Electrode Lead Nerve Stimulator [id number] - [id number] Implanted:Qty: 1 on 08/04/2024 by Olaf Pascual MD at [facility] Spine Thoracic Medtronic Inc [id number] / / [id number] Explanted Type Area Liaison Planner Device Identifier Shelf Expiration Date Model / Serial / Lot Medtronic Inc Vectris 5mm 60cm 1x8 Electrode Mri Lead Neurostimulator [id number] - [id number] Explanted:Qty: 1 on 10/28/2023 at [facility] N/A: Thoracic- Lumbar Spine Medtronic Inc 09/30/2027 [id number] / / [id number] Procedures Procedure Name Priority Date/Time Associated Diagnosis [...] Most Recently Relevant to Health Maintenance Insurance [facility] [place] [address] IDPA [facility] MDCR HMO REF IDPA IDPA [facility] MEDICARE ADVANTAGE Advance Directives For more information, please contact: [phone] * Full Code (Latest Code Status on File) Date Activated Date Inactivated Comments 04/20/2024 1:08 PM 04/21/2024 7:29 PM Care Teams Brim Edge Trimmer Relationship Specialty Start Date End Date Adis Lloyd MD [address] [facility] [place] [address] PCP - General 11/09/19 Corey Mortensen DO [address] [place] [address] Medical Oncologist/Hematologis t Hematology and Oncology 09/09/18
--- OUTSIDE RECORDS SUMMARY | 2025-03-21 10:32 | XMS_ITS | Encounter Summary ---
Author Organization [facility] Address [address] [facility] [place] [address] Phone Care Team Providers Care Corsage Maker Name Role Phone Adis Lloyd MD Primary Care Provider [phone] Corey Mortensen DO Unavailable [phone] Adis Lloyd MD Primary Care Provider [phone] Encounter Details Date Type Department Care Team (Latest Contact Info) Description 11/16/2012 Orders Only [facility] Scanning, Provider Social History Tobacco Use Types Packs/Day Years Used Date Smoking Tobacco: Never Assessed Comments Unknown Sex and Gender Information Value Date Recorded Sex Assigned at Not on file 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
--- OUTSIDE RECORDS SUMMARY | 2025-03-21 10:33 | XMS_ITS | Data Portability ---
Author Organization [place] - S Tour Desk, Main Office Address [address] [place] [address] Care Team Providers Care Wheel Filler Name Role Phone ADIS LLOYD Primary Care Provider ADIS LLOYD Referring Provider [phone] Assessment Encounter Date Assessment Date Assessment LastModified by Organization Details LastModified Time 05/11/2024 05/11/2024 64 yo F with - [...] Cont f/u with Wt loss clinic at [facility] as per schedule. Cont f/u with Medical Recruiter at [facility] as per schedule. Cont f/u with Derm at [place] as per schedule. Cont f/u with Wound clinic at [facility] as per schedule. Cont f/u with Psych & counsellor at [facility] as per schedule. Cont f/u with Cardio at [facility] as per schedule. Cont f/u with Spine surgeon at [place] as per schedule. Cont f/u with Pain clinic at [facility] as per schedule. Cont f/u with Ortho at [place] as per schedule. Cont f/u with Hemat as per schedule. Cont f/u with Gyne as per schedule. Cont f/u with Ophtho at [facility] as per schedule. Cont f/u with GI as per schedule. Pt has seen Psych & counsellor at [facility] in the past, but doesn't want to f/u with them. Pt has seen Wt loss clinic at [place]; but doesn't want to f/u with them. [...] in 3-4 weeks. Annual labs in 04/24. [email or web address] Not available 05/11/2024 14:43:24 06/22/2024 06/22/2024 64 [...] Cont f/u with Wt loss clinic at [facility] as per schedule. Cont f/u with Medical Recruiter at [facility] as per schedule. Cont f/u with Derm at [place] as per schedule. Cont f/u with Wound clinic at [facility] as per schedule. Cont f/u with Psych & counsellor at [facility] as per schedule. Cont f/u with Cardio at [facility] as per schedule. Cont f/u with Spine surgeon at [place] as per schedule. Cont f/u with Pain clinic at [facility] as per schedule. Cont f/u with Ortho at [place] as per schedule. Cont f/u with Hemat as per schedule. Cont f/u with Gyne as per schedule. Cont f/u with Ophtho at [facility] as per schedule. Cont f/u with GI as per schedule. Pt has seen Psych & counsellor at [facility] in the past, but doesn't want to f/u with them. Pt has seen Wt loss clinic at [place]; but doesn't want to f/u with them. [...] on next visit. Annual labs in 06/25. [email or web address] Not available 06/22/2024 12:53:15 07/08/2024 07/08/2024 64 [...] Cont f/u with Wt loss clinic at [facility] as per schedule. Cont f/u with Medical Recruiter at [facility] as per schedule. Cont f/u with Derm at [place] as per schedule. Cont f/u with Wound clinic at [facility] as per schedule. Cont f/u with Psych & counsellor at [facility] as per schedule. Cont f/u with Cardio at [facility] as per schedule. Cont f/u with Spine surgeon at [place] as per schedule. Cont f/u with Pain clinic at [facility] as per schedule. Cont f/u with Ortho at [place] as per schedule. Cont f/u with Hemat as per schedule. Cont f/u with Gyne as per schedule. Cont f/u with Ophtho at [facility] as per schedule. Cont f/u with GI as per schedule. Pt has seen Psych & counsellor at [facility] in the past, but doesn't want to f/u with them. Pt has seen Wt loss clinic at [place]; but doesn't want to f/u with them. [...] on next visit. Annual labs in 06/25. [email or web address] Not available 07/08/2024 12:38:41 10/12/2024 10/12/2024 64 [...] verbalized understanding it. F/u with Neuro at [facility] as per schedule. Cont f/u with Wt loss clinic at [facility] as per schedule. Cont f/u with Medical Recruiter at [facility] as per schedule. Cont f/u with Derm at [place] as per schedule. Cont f/u with Wound clinic at [facility] as per schedule. Cont f/u with Psych & counsellor at [facility] as per schedule. Cont f/u with Cardio at [facility] as per schedule. Cont f/u with Spine surgeon at [place] as per schedule. Cont f/u with Pain clinic at [facility] as per schedule. Cont f/u with Ortho at [place] as per schedule. Cont f/u with Hemat as per schedule. Cont f/u with Gyne as per schedule. Cont f/u with Ophtho at [facility] as per schedule. Cont f/u with GI as per schedule. Pt has seen Psych & counsellor at [facility] in the past, but doesn't want to f/u with them. Pt has seen Wt loss clinic at [place]; but doesn't want to f/u with them. [...] in 3-4 months. Annual labs in 06/25. Not available 10/12/2024 12:37:44 01/12/2025 01/12/2025 64 yo F with - HYPOTHYROIDISM, improved [...] H/O ANEMIA - H/O MULTIPLE SUPERFICIAL ULCERS CT c-spine wo: 12/15/24. CT brain wo: 12/15/24. Annual labs: 06/22/24. Annual labs, Hepatitis panel, [...] us if needed. Pt verbalized understanding it. Cont f/u with Neuro at [facility] as per schedule. Cont f/u with Wt loss clinic at [facility] as per schedule. Cont f/u with Medical Recruiter at [facility] as per schedule. Cont f/u with Derm at [place] as per schedule. Cont f/u with Wound clinic at [facility] as per schedule. Cont f/u with Psych & counsellor at [facility] as per schedule. Cont f/u with Cardio at [facility] as per schedule. Cont f/u with Spine surgeon at [place] as per schedule. Cont f/u with Pain clinic at [facility] [place] as per schedule. Cont f/u with Ortho at [facility] as per schedule. Cont f/u with Hemat as per schedule. Cont f/u with Gyne as per schedule. Cont f/u with Ophtho at [facility] as per schedule. Cont f/u with GI as per schedule. Pt has seen Psych & counsellor at [facility] in the past, but doesn't want to f/u with them. Pt has seen Wt loss clinic at [place]; but doesn't want to f/u with them. [...] Hep A - 10/26/20, 08/14/21. F/u in 5 months. Annual labs in 06/25. [email or web address] Not available 01/12/2025 14:11:54 Plan of Treatment Reminders Order Date Submit Date Provider Last Modified By Organization Details Last Modified Time Details Appointments Physical/ Annual Wellness 30 2024 10:00A Nelly Lloyd MD Not available Not available Not available Lab vitamin B12 + folate, serum or blood 2023 024 [email or web address] [facility], [address] [place], [address], 07/01/2024 11:29:00 [facility] , serum or [facility] [address] [place], [address], 06/22/2024 19:25:32 vitamin D, 25-hydrox y, total, serum [address]), [address] [place], [address], 07/01/2024 11:29:36 uric acid, serum or plasma 2023 [facility]), [address] [place], [address], 06/22/2024 19:25:26 HbA1c (hemoglob in A1c), blood [address]), [address] [place], [address], 07/01/2024 11:29:24 urinalysi s complete, reflex culture [address]), [address] [place], [address], 08/12/2024 14:40:57 CBC w/ auto diff 2023 [facility] [address] [place], [address], 06/22/2024 19:30:17 CMP, serum or plasma 2023 024 [facility] [address] [place], [address], 06/22/2024 19:25:22 TSH, serum, reflex free T4 [email or web address] [place] [address]), [address] [place], [address], 07/22/2024 10:33:18 lipid panel, serum 2023 024 [facility]), [address] [place], [address], 06/22/2024 19:25:30 Referral None recorded. Procedures None recorded. Surgeries None recorded. Imaging MAMMO, screening , bilateral [address]), [address] [place], [address], 10/13/2024 09:03:48 US, breast, bilateral - Please call patient to schedule. [address]), [address] [place], [address], 12/15/2024 15:44:23 MAMMO, diagnosti c, digital, bilateral [address]), [address] [place] [address], [address], 10/13/2024 09:04:03 US, breast, unilatera l - To be done w/ Dx Mammogram 2023 024 [facility]), [address] [place] [address], [address], 05/25/2024 11:09:23 MAMMO, diagnosti c, digital, unilatera l - Please call pt to schedule for Left side Dx Mammogram 2023 [email or web address] [place] [address]), [address] [place], [address], 06/10/2024 09:18:15 Medication Orders cyclobenz aprine 10 mg tablet 2024 ELLEN [facility], [facility] [address] [facility], [address], [place], [address], 01/12/2025 14:12:45 triamcino lone acetonide 0.1 % topical cream 2024 025 ELLEN [facility], [address] [facility] [facility], [place], [address], 01/12/2025 14:12:44 allopurin ol 100 mg tablet 2024 025 ELLEN [facility], [address] [facility], [place], [address], 01/12/2025 14:12:44 amitripty line 150 mg tablet 2024 025 ELLEN [facility], [address] [facility], [facility] [place], [address], 01/12/2025 14:12:48 gabapenti n 800 mg tablet 2024 025 ELLEN [facility] [place], [address] [facility], [facility] [address], [facility] [place], [address], 01/12/2025 14:12:48 omeprazol e 20 mg capsule,d elayed release 2024 025 ELLEN [facility], [address] [facility] [facility], [place], [address], 01/12/2025 14:12:45 Synthroid 75 mcg tablet 2024 025 ELLEN [facility], [address] [facility] [facility], [place], [address], 01/12/2025 14:12:46 meloxicam 7.5 mg tablet 2024 025 ELLEN [facility], [address] [facility] [facility], [place], [address], 01/12/2025 14:12:47 cyclobenz aprine 10 mg tablet 2024 025 ELLEN [facility], [address] [facility] [facility], [place], [address], 10/12/2024 12:20:31 triamcino lone acetonide 0.1 % topical cream 2024 025 ELLEN [facility], [address] [facility] [facility], [place], [address], 10/12/2024 12:22:33 allopurin ol 100 mg tablet 2024 025 ELLEN [facility], [address] [facility], [place], [address], 10/12/2024 12:20:29 amitripty line 150 mg tablet 2024 025 ELLEN [facility], [address] [facility], [place], [address], 10/12/2024 12:20:34 gabapenti n 800 mg tablet 2024 025 ELLEN [facility], [address] [facility], [place], [address], 10/12/2024 12:20:35 omeprazol e 20 mg capsule,d elayed release 2024 025 ELLEN [facility], [address] [facility], [place], [address], 10/12/2024 12:20:33 Synthroid 75 mcg tablet 2024 025 ELLEN [facility], [address] [facility], [address], [place], [address], 10/12/2024 12:20:38 meloxicam 7.5 mg tablet 2024 025 ELLEN [facility], [address] [facility], [place], [address], 10/12/2024 12:20:31 cyclobenz aprine 10 mg tablet 2023 ELLEN [facility], [address] [facility], [place], [address], 07/08/2024 12:39:54 allopurin ol 100 mg tablet 2023 ELLEN [facility], [address] [facility], [facility] [address], [place], [address], 07/08/2024 12:39:57 amitripty line 150 mg tablet 2023 ELLEN [facility], [address] [place] [address], [facility] [address], [place], [address], 07/08/2024 12:39:54 Zepbound 2.5 mg/0.5 mL subcutane ous pen injector 2023 [email or web address] [facility], [address] [facility], [address], [place], [address], 10/12/2024 12:37:12 gabapenti n 800 mg tablet 2023 ELLEN [facility], [address] [facility], [address], [place], [address], 07/08/2024 12:39:55 omeprazol e 20 mg capsule,d elayed release 2023 ELLEN [facility], [address] [facility], [address], [place], [address], 07/08/2024 12:39:58 Synthroid 75 mcg tablet 2023 ELLEN [facility], [address] [facility], [place], [address], 07/08/2024 12:39:59 meloxicam 7.5 mg tablet 2023 ELLEN [facility], [address] [facility], [facility] [address], [place], [address], 07/08/2024 12:39:56 cyclobenz aprine 10 mg tablet 2023 ELLEN [facility], [address] [facility], [facility] [address], [place], [address], 06/22/2024 12:44:18 allopurin ol 100 mg tablet 2023 ELLEN [facility], [address] [facility], [place], [address], 06/22/2024 12:44:15 amitripty line 150 mg tablet 2023 ELLEN [facility], [address] [facility], [facility] [place], [address], 06/22/2024 12:44:19 meloxicam 7.5 mg tablet 2023 ELLEN [facility], [address] [facility], [facility] [address], [place], [address], 06/22/2024 12:44:21 gabapenti n 800 mg tablet 2023 ELLEN [facility], [address] [facility], [facility] [address], [place], [address], 06/22/2024 12:44:17 omeprazol e 20 mg capsule,d elayed release 2023 ELLEN [facility], [address] [facility], [facility] [place], [address], 06/22/2024 12:44:15 Synthroid 75 mcg tablet 2023 ELLEN [facility], [address] [facility], [facility] [address], [place], [address], 06/22/2024 12:44:12 cyclobenz aprine 10 mg tablet 2023 024 ELLEN [facility], [address] [facility], [facility] [address], [place], [address], 05/11/2024 14:32:02 allopurin ol 100 mg tablet 2023 024 ELLEN [facility], [address] [place] [address], [facility] [address], [place], [address], 05/11/2024 14:31:51 amitripty line 150 mg tablet 2023 024 ELLEN [facility], [address] [place] [address], [facility] [address], [place], [address], 05/11/2024 14:31:53 Wegovy 0.25 mg/0.5 mL subcutane ous pen injector 2023 024 [email or web address] [facility], [address] [place] [address], [facility] [address], [place], [address], 10/12/2024 12:37:08 gabapenti n 800 mg tablet 2023 024 ELLEN [facility], [address] [facility], [facility], [place], [address], 05/11/2024 14:31:52 omeprazol e 20 mg capsule,d elayed release 2023 024 ELLEN [facility], [address] [place] [address], [facility], [place], [address], 05/11/2024 14:31:53 Synthroid 75 mcg tablet 2023 024 ELLEN [facility], [address] [facility], [facility] [address], [place], [address], 05/11/2024 14:32:01 meloxicam 7.5 mg tablet 2023 024 ELLEN [facility], [facility] [address], [place], [address], 05/11/2024 14:31:50 Patient TargetsNo targets recorded. Patient InstructionsNo instructions recorded. Reason for Referral None Reported. Results Created Date Observation Date Name Description Value Unit Range Abnormal Flag Note LastModifiedBy Organization Detail LastModifiedTime 06/22/2006/22/2024 TEST NOT PERFO RMED test not performed SEE COMMEN T UNABL E TO PERFO RM URINA LYSIS TESTI NG-NO SPECI MEN SENT TO THE LAB Not Available [facility] (Lab) [address] [place], [address], 06/22/2024 19:09:32 06/22/20 24 06/22/2024 COMPR EHENS ELY METAB OLIC PANEL sodium 139 mmol/ L 137-14 5 Not Available [facility] (Lab) [address] [place], [address], 06/22/2024 19:25:22 06/22/20 24 06/22/2024 COMPR EHENS ELY METAB OLIC PANEL potassium 4.7 mmol/ L 3.5-5. 1 Not Available [facility] (Lab) [address] [place], [address], 06/22/2024 19:25:22 06/22/20 24 06/22/2024 COMPR EHENS ELY METAB OLIC PANEL chloride 106 mmol/ L 98-107 Not Available [facility] (Lab) [address] [place], [address], 06/22/2024 19:25:22 06/22/20 24 06/22/2024 COMPR EHENS ELY METAB OLIC PANEL carbon dioxide 24 mmol/ L 22-30 Not Available [facility] (Lab) [address] [place], [address], 06/22/2024 19:25:22 06/22/20 24 06/22/2024 COMPR EHENS ELY METAB OLIC PANEL anion gap 13.7 mmol/ L 14- low Not Available [facility] (Lab) [address] [place], [address], 06/22/2024 19:25:22 06/22/20 24 06/22/2024 COMPR EHENS ELY METAB OLIC PANEL glucose 93 mg/dL 70-99 Not Available [facility] (Lab) [address] [place], [address], 06/22/2024 19:25:22 06/22/20 24 06/22/2024 COMPR EHENS ELY METAB OLIC PANEL BUN 13 mg/dL 8-19 Not Available [facility] (Lab) [address] [place], [address], 06/22/2024 19:25:22 06/22/20 24 06/22/2024 COMPR EHENS ELY METAB OLIC PANEL creatinine 1.01 mg/dL 0.66-1 .25 Not Available [facility] (Lab) [address] [place], [address], 06/22/2024 19:25:22 06/22/20 24 06/22/2024 COMPR EHENS ELY METAB OLIC PANEL GFR 55 Refer ence Range : [place] ge GFR Healt hy Adult : >60 [...] of age, a pedia tric GFR calcu lator is avail able on the [facility] websi te: https ://ww w.kid karlee.o rg/pr ofess ional s/kdo qi/gf r_cal culat or Not Available [facility] (Lab) [address] [place], [address], 06/22/2024 19:25:22 06/22/20 24 06/22/2024 COMPR EHENS ELY METAB OLIC PANEL alkaline phosphatase 130 U/L 38-126 high Not Available [facility] (Lab) [address] [place], [address], 06/22/2024 19:25:22 06/22/20 24 06/22/2024 COMPR EHENS ELY METAB OLIC PANEL alanine aminotransfe rase 31 U/L 0-35 Not Available [facility] (Lab) [address] [place], [address], 06/22/2024 19:25:22 06/22/20 24 06/22/2024 COMPR EHENS ELY METAB OLIC PANEL aspartate aminotransfe rase 35 U/L 15-37 Not Available [facility] (Lab) [address] [place], [address], 06/22/2024 19:25:22 06/22/20 24 06/22/2024 COMPR EHENS ELY METAB OLIC PANEL bilirubin, total 0.50 mg/dL 0.20-1 .30 Not Available [facility] (Lab) [address] [place], [address], 06/22/2024 19:25:22 06/22/20 24 06/22/2024 COMPR EHENS ELY METAB OLIC PANEL calcium 10.1 mg/dL 8.4-10 .2 Not Available [facility] (Lab) [address] [place], [address], 06/22/2024 19:25:22 06/22/2006/22/2024 COMPR EHENS ELY METAB OLIC PANEL total protein 6.7 g/dL 6.3-8. 2 Not Available [facility] (Lab) [address] [place], [address], 06/22/2024 19:25:22 06/22/2006/22/2024 COMPR EHENS ELY METAB OLIC PANEL albumin 4.2 g/dL 3.0-4. 4 Not Available [facility] (Lab) [address] [place], [address], 06/22/2024 19:25:22 06/22/20 24 06/22/2024 COMPR EHENS ELY METAB OLIC PANEL globulin 2.5 g/dL 2.6-4. 2 low Not Available [facility] (Lab) [address] [place], [address], 06/22/2024 19:25:22 06/22/2006/22/2024 COMPR EHENS ELY METAB OLIC PANEL A/G ratio 1.7 ratio 1.0-2. 0 Not Available [facility] (Lab) [address] [place], [address], 06/22/2024 19:25:22 06/22/20 24 06/22/2024 URIC ACID SERUM uric acid 5.1 mg/dL 2.5-6. 2 Not Available [facility] (Lab) [address] [place], [address], 06/22/2024 19:25:26 06/22/20 06/22/2024 LIPID PANEL cholesterol 198 mg/dL 140-19 9 NIH ZUHAIR NSUS RECOM MENDA TION FOR ROSALIA STERO L: ADULT CHILD LOW RISK: <200 <170 BORDE RLINE : <200- 239 ----- HIGH RISK: >240 >200 Not Available [facility] (Lab) [address] [place], [address], 06/22/2024 19:25:30 06/22/20 24 06/22/2024 LIPID PANEL triglyceride s 88 mg/dL 0-150 NIH ZUHAIR NSUS REPOR T RECOM MENDA TION FOR TRIGL YCERI APRYL: ADULT CHILD LOW RISK: <150 ----- BODER LINE: 150-1 99 ----- HIGH RISK: >200 ----- Not Available [facility] (Lab) [address] [place], [address], 06/22/2024 19:25:30 06/22/20 24 06/22/2024 LIPID PANEL HDL cholesterol 81 mg/dL 40- Not Available [facility] (Lab) [address] [place], [address], 06/22/2024 19:25:30 06/22/20 24 06/22/2024 LIPID PANEL LDL cholesterol, calculated 99 mg/dL [...] WILL NOT BE REPOR YVONNE. Not Available [facility] (Lab) [address] [place], [address], 06/22/2024 19:25:30 06/22/20 24 06/22/2024 MAGNE SIUM magnesium 1.6 mg/dL 1.6-2. 3 Not Available [facility] (Lab) [address] [place], [address], 06/22/2024 19:25:32 06/22/2006/22/2024 CBC/C OMPLE TE BLD COUNT W/DIF F white blood cells 5.6 x10'3 /uL 4.2-10 .8 Not Available [facility] (Lab) [address] [place], [address], 06/22/2024 19:30:17 06/22/20 24 06/22/2024 CBC/C OMPLE TE BLD COUNT W/DIF F red blood cells 4.55 x10'6 /uL 3.80-5 .20 Not Available [facility] (Lab) [address] [place], [address], 06/22/2024 19:30:17 06/22/2006/22/2024 CBC/C OMPLE TE BLD COUNT W/DIF F hemoglobin 14.8 g/dL 12.0-1 5.6 Not Available [facility] (Lab) [address] [place], [address], 06/22/2024 19:30:17 06/22/20 24 06/22/2024 CBC/C OMPLE TE BLD COUNT W/DIF F hematocrit 45.9 % 35.7-4 5.7 high Not Available [facility] (Lab) [address] [place], [address], 06/22/2024 19:30:17 06/22/20 24 06/22/2024 CBC/C OMPLE TE BLD COUNT W/DIF F mean red cell volume 100.9 fL 82.0-9 9.0 high Not Available [facility] (Lab) [address] [place], [address], 06/22/2024 19:30:17 06/22/20 24 06/22/2024 CBC/C OMPLE TE BLD COUNT W/DIF F mean red cell hemoglobin 32.5 pg 27.0-3 3.0 Not Available [facility] (Lab) [address] [place], [address], 06/22/2024 19:30:17 06/22/2006/22/2024 CBC/C OMPLE TE BLD COUNT W/DIF F mean RBC HGB concentratio n 32.2 g/dL 31.0-3 6.0 Not Available [facility] (Lab) [address] [place], [address], 06/22/2024 19:30:17 06/22/2006/22/2024 CBC/C OMPLE TE BLD COUNT W/DIF F red cell distribution width 14.3 % 11.8-1 5.5 Not Available [facility] (Lab) [address] [place], [address], 06/22/2024 19:30:17 06/22/2006/22/2024 CBC/C OMPLE TE BLD COUNT W/DIF F platelets 269 x10'3 /uL 150-40 0 Not Available [facility] (Lab) [address] [place], [address], 06/22/2024 19:30:17 06/22/20 24 06/22/2024 CBC/C OMPLE TE BLD COUNT W/DIF F mean platelet volume 10.1 fL 9.0-12 .4 Not Available [facility] (Lab) [address] [place], [address], 06/22/2024 19:30:17 06/22/2006/22/2024 CBC/C OMPLE TE BLD COUNT W/DIF F neutrophils 58.0 % 39.0-7 2.0 Not Available [facility] (Lab) [address] [place], [address], 06/22/2024 19:30:17 06/22/20 24 06/22/2024 CBC/C OMPLE TE BLD COUNT W/DIF F lymphocytes 27.1 % 16.0-4 7.0 Not Available [facility] (Lab) [address] [place], [address], 06/22/2024 19:30:17 06/22/2006/22/2024 CBC/C OMPLE TE BLD COUNT W/DIF F monocytes 8.2 % 5.0-12 .0 Not Available [facility] (Lab) [address] [place], [address], 06/22/2024 19:30:17 06/22/2006/22/2024 CBC/C OMPLE TE BLD COUNT W/DIF F eosinophils 4.8 % 1.0-7. 0 Not Available [facility] (Lab) [address] [place], [address], 06/22/2024 19:30:17 06/22/2006/22/2024 CBC/C OMPLE TE BLD COUNT W/DIF F basophils 1.4 % 0.0-2. 0 Not Available [facility] (Lab) [address] [place], [address], 06/22/2024 19:30:17 06/22/2006/22/2024 CBC/C OMPLE TE BLD COUNT W/DIF F immature granulocytes 0.5 % 0.00-0 .50 Not Available [facility] (Lab) [address] [place], [address], 06/22/2024 19:30:17 06/22/20 24 06/22/2024 CBC/C OMPLE TE BLD COUNT W/DIF F neutrophils, absolute count 3.24 x10'3 /uL 1.5-8. 0 Not Available [facility] (Lab) [address] [place], [address], 06/22/2024 19:30:17 06/22/20 24 06/22/2024 CBC/C OMPLE TE BLD COUNT W/DIF F lymphocytes, absolute count 1.52 x10'3 /uL 1.07-3 .43 Not Available [facility] (Lab) [address] [place], [address], 06/22/2024 19:30:17 06/22/20 24 06/22/2024 CBC/C OMPLE TE BLD COUNT W/DIF F monocytes, absolute count 0.46 x10'3 /uL 0.29-0 .99 Not Available [facility] (Lab) [address] [place], [address], 06/22/2024 19:30:17 06/22/2006/22/2024 CBC/C OMPLE TE BLD COUNT W/DIF F eosinophils, absolute count 0.27 x10'3 /uL 0.02-0 .53 Not Available [facility] (Lab) [address] [place], [address], 06/22/2024 19:30:17 06/22/20 24 06/22/2024 CBC/C OMPLE TE BLD COUNT W/DIF F basophils, absolute count 0.08 x10'3 /uL 0.01-0 .08 Not Available [facility] (Lab) [address] [place], [address], 06/22/2024 19:30:17 06/22/2006/22/2024 CBC/C OMPLE TE BLD COUNT W/DIF F immature granulocytes ,absolute 0.03 x10'3 /uL 0.00-0 .05 Not Available [facility] (Lab) [address] [place], [address], 06/22/2024 19:30:17 06/22/20 24 06/22/2024 CBC/C OMPLE TE BLD COUNT W/DIF F nucleated red blood cells 0.0 % -0 Not Available [facility] (Lab) [address] [place], [address], 06/22/2024 19:30:17 06/22/20 24 06/22/2024 CBC/C OMPLE TE BLD COUNT W/DIF F NRBC# 0.00 x10'3 /uL Not Available [facility] (Lab) [address] [place], [address], 06/22/2024 19:30:17 06/22/20 24 06/22/2024 VITAM IN D 25-HY DROXY vd25oh 37.5 NG/mL 30-100 Vitam in D Statu s: Defic ient: <20 ng/mL Insuf ficie nt: 20-29 ng/mL Suffi cient : 30-10 0 ng/mL Not Available [facility] (Lab) [address] [place], [address], 06/22/2024 19:39:07 06/22/2006/22/2024 TSH W/REF YANDEL FT4 TSH with reflex free T4 2.690 uIU/m L 0.465- 4.680 Not Available [facility] (Lab) [address] [place], [address], 06/22/2024 19:50:38 06/22/20 24 06/22/2024 VITAM IN B12 (SERGEY KARTHIK ) vb12 771 pg/mL 239-93 1 Not Available [facility] (Lab) [address] [place], [address], 06/22/2024 20:21:50 06/22/2006/22/2024 FOLAT E, SERUM /PLAS MA folate >20.0 NG/mL 2.76-2 0.0 Not Available [facility] (Lab) [address] [place], [address], 06/22/2024 20:21:53 06/22/20 24 06/22/2024 HEMOG LOBIN A1C HA1C 5.0 % 4.0-6. 0 Diabe kate Scree javier Crite morgan: <5.7% Consi stent with absen ce of diabe kate 5.7-6 .4% Consi stent with incre ased risk for diabe kate (pred iabet es) >OR=6 .5% Consi stent with diabe kate REFER ENCE: Diabe kate Care 2016, 39(Vargas ppl.1 ):s13 -s22 Not Available [facility] (Lab) [address] [place], [address], 06/22/2024 21:18:36 07/08/20 24 07/08/2024 URINA LYSIS COMPL ETE/I RIS W/RFX color YELLOW Not Available [facility] (Lab) [address] [place], [address], 07/08/2024 18:25:41 07/08/20 24 07/08/2024 URINA LYSIS COMPL ETE/I RIS W/RFX appear EXTRA TURBID abnormal Not Available [facility] (Lab) [address] [place], [address], 07/08/2024 18:25:41 07/08/20 24 07/08/2024 URINA LYSIS COMPL ETE/I RIS W/RFX specific gravity 1.014 1.001- 1.030 Not Available [facility] (Lab) [address] [place], [address], 07/08/2024 18:25:41 07/08/20 24 07/08/2024 URINA LYSIS COMPL ETE/I RIS W/RFX pH 5.5 pH_un its 5.0-9. 0 Not Available [facility] (Lab) [address] [place], [address], 07/08/2024 18:25:41 07/08/20 24 07/08/2024 URINA LYSIS COMPL ETE/I RIS W/RFX leukocytes NEGATI VE elissa/u L negati ve- Not Available [facility] (Lab) [address] [place], [address], 07/08/2024 18:25:41 07/08/20 24 07/08/2024 URINA LYSIS COMPL ETE/I RIS W/RFX nitrite 2+ negati ve- abnormal Not Available [facility] (Lab) [address] [place], [address], 07/08/2024 18:25:41 07/08/20 24 07/08/2024 URINA LYSIS COMPL ETE/I RIS W/RFX protein NEGATI VE mg/dL negati ve- Not Available [facility] (Lab) [address] [facility] [place], [address], 07/08/2024 18:25:41 07/08/20 24 07/08/2024 URINA LYSIS COMPL ETE/I RIS W/RFX glucose NORMAL mg/dL normal - Not Available [facility] (Lab) [address] [facility] [place], [address], 07/08/2024 18:25:41 07/08/20 24 07/08/2024 URINA LYSIS COMPL ETE/I RIS W/RFX ketones NEGATI VE mg/dL negati ve- Not Available [facility] (Lab) [address] [place], [address], 07/08/2024 18:25:41 07/08/20 24 07/08/2024 URINA LYSIS COMPL ETE/I RIS W/RFX urobilinogen NORMAL mg/dL normal - Not Available [facility] (Lab) [address] [place], [address], 07/08/2024 18:25:41 07/08/20 24 07/08/2024 URINA LYSIS COMPL ETE/I RIS W/RFX bilirubin NEGATI VE mg/dL negati ve- Not Available [facility] (Lab) [address] [place], [address], 07/08/2024 18:25:41 07/08/20 24 07/08/2024 URINA LYSIS COMPL ETE/I RIS W/RFX blood NEGATI VE mg/dL negati ve- Not Available [facility] (Lab) [address] [place], [address], 07/08/2024 18:25:41 07/08/20 24 07/08/2024 URINA LYSIS COMPL ETE/I RIS W/RFX white blood cells 0-8 /i??h pfi?? 0-8 Not Available [facility] (Lab) [address] [place], [address], 07/08/2024 18:25:41 07/08/20 24 07/08/2024 URINA LYSIS COMPL ETE/I RIS W/RFX red blood cells NONE /i??h pfi?? 0-4 Not Available [facility] (Lab) [address] [place], [address], 07/08/2024 18:25:41 07/08/20 24 07/08/2024 URINA LYSIS COMPL ETE/I RIS W/RFX bacteria NONE Not Available [facility] (Lab) [address] [place], [address], 07/08/2024 18:25:41 07/08/20 24 07/08/2024 URINA LYSIS COMPL ETE/I RIS W/RFX mucous OCCASI ONAL /i??l pfi?? abnormal Not Available [facility] (Lab) [address] [place], [address], 07/08/2024 18:25:41 07/08/20 24 07/08/2024 URINA LYSIS COMPL ETE/I RIS W/RFX squamous epithelial NONE /i??l pfi?? Not Available [facility] (Lab) [address] [place], [address], 07/08/2024 18:25:41 07/08/20 24 07/08/2024 URINA LYSIS COMPL ETE/I RIS W/RFX hyaline cast MODERA TE /i??l pfi?? none seen- abnormal Not Available [facility] (Lab) [address] [place], [address], 07/08/2024 18:25:41 07/08/20 24 07/08/2024 URINA LYSIS COMPL ETE/I RIS W/RFX calcium oxalate crystal MANY /i??h pfi?? none seen- abnormal Not Available [facility] (Lab) [address] [place], [address], 07/08/2024 18:25:41 07/08/20 24 07/08/2024 CULTU RE URINE urc ===== ===== ===== ===== ===== ===== ===== ===== ===== ===== ===== ===== ===== ===== ===== ===== ===== ===== ===== ===== ===== ===== ===== ===== Speci men NO.: [id number] Exam Statu s: Final Proce dure: [...] Genta micin >8 R R Bioty pe [id number] Oxida se React ion N Extra Sensi [...] furan toin <=32 S S Not Available [facility] ([facility]) [address] [place], [address], 07/10/2024 09:00:48 05/25/20 24 05/25/2024 US, breas t, unila teral No observ ation record ed. [address]) [address] [place], [address], 06/22/2024 12:34:16 12/16/19 25 12/15/2024 CT, brain , w/o contr ast No observ ation record ed. [address] [place], [address], 01/12/2025 14:11:22 12/16/19 25 12/15/2024 XR, chest , 2 view No observ ation record ed. [address] [place], [address], 01/12/2025 14:11:21 12/16/19 25 12/15/2024 imagi ng/di agnos tic resul t No observ ation record ed. [email or web address] [place] [address] [address] [place], [address], 01/12/2025 14:11:21 12/16/19 25 12/15/2024 CT, cervi giuliana spine , w/o contr ast No observ ation record ed. [email or web address] [place] [address] [address] [place], [address], 01/12/2025 14:11:21 01/04/20 25 01/03/2025 XR, knee, 3 view No observ ation record ed. [email or web address] [place] [address] [address] [place], [address], 01/12/2025 14:11:21 Result Notes None recorded. Problems Name Problem SNOMED Code Status Onset Date Resolution Date Notes Provider Name and Address Organization Details Recorded Time Radiothe rapy follow-u p 088732852 Active Not Available [facility] 3 02:58:26 Localize d, primary osteoart hritis of the pelvic region and thigh 745887165 Active Not Available [facility] 3 02:58:26 History of left hip replacem ent 09566923650 60811 Active 2016August 2013 Not Available [facility] 3 02:58:25 Anemia 461316650 Completed 201610/30/2017 Not Available [facility] 3 02:58:27 Chronic low back pain 389969032 Active 2016 Not Available [facility] 3 02:58:27 Depressi ve disorder 65290526 Active 2016 Not Available [facility] 3 02:58:28 Osteoart hritis 519315918 Active 2016 Not Available [facility] 3 02:58:29 History of spinal fusion 97872397026 107 Active 2016 L4&L5 Not Available [facility] 3 02:58:29 History of bariatri c surgical procedur e 722988012 Active 2016 and a revision in 2011 Not Available [facility] 3 02:58:29 Microsco pic hematuri a 492410529 Completed 201602/05/2018 Not Available [facility] 3 02:58:26 Polyarth ropathy 60757407 Active 2016 Not Available [facility] 3 02:58:28 Liver enzymes level above referenc e range 754001135 Active 2016 Not Available [facility] 3 02:58:30 Menopaus al flushing 261893220 Active 2016 Not Available [facility] 3 02:58:26 Obsessiv e-compul sive disorder 046264947 Active 2017 Not Available [facility] 3 02:58:26 Pruritic disorder 693454201 Active 2017 Not Available [facility] 3 02:58:27 History of hematuri a 011207942 Active 2017 Not Available [facility] 3 02:58:26 Elevated blood-pr essure reading without diagnosi s of hyperten violetta 065263563 Completed 201701/26/2019 Not Available [facility] 3 02:58:28 Anxiety 63445347 Active 2017 Not Available [facility] 3 02:58:29 Hyperten sive disorder 84495907 Completed 201708/03/2018 Not Available [facility] 3 02:58:28 Obesity 758434260 Active 2017 Not Available [facility] 3 02:58:29 Anemia 283464049 Active 2017 Not Available [facility] 3 02:58:27 Fatigue 60438481 Active 2017 Not Available [facility] 3 02:58:30 Vitamin B12 deficien cy (non anemic) 63400319 Active 2017 Not Available [facility] 3 02:58:30 Chronic pain syndrome 938852635 Active 2018 Not Available [facility] 3 02:58:28 Skin ulcer 33145025 Active 2018 Not Available [facility] 3 02:58:29 Hyperten sive disorder 73796185 Active 2018 Not Available [facility] 3 02:58:28 Gouty arthropa thy 408311973 Active 2018 Not Available [facility] 3 02:58:26 Palpitat ions 42706598 Active 2018 Not Available [facility] 3 02:58:30 Morbid obesity 988674969 Completed 201805/31/2021 Not Available [facility] 3 02:58:27 Hyperlip idemia 02371519 Active 2018 Not Available [facility] 3 02:58:29 Impacted cerumen of bilatera l ears 48055685305 35181 Active 2019 Not Available [facility] 3 02:58:25 Intermit tent palpitat ions 882790203 Active 2019 Not Available [facility] 3 02:58:25 Open wound of anterior abdomina l wall 256004184 Active 2019 Not Available [facility] 3 02:58:26 Alkaline phosphat ase above referenc e range 861355055 Active 2019 Not Available [facility] 3 02:58:27 Pain of left hip joint 72139673336 9100 Active 2019 Not Available [facility] 3 02:58:28 Gastro-e sophagea l reflux disease with esophagi tis 758104499 Active 2020 Not Available [facility] 3 02:58:27 Pain in both feet 61501862874 019548 Active 2020 Not Available [facility] 3 02:58:25 Lumbar spondylo sis 981680100 Active 2020 Not Available [facility] 3 02:58:27 Chronic kidney disease stage 3 767394609 Active 2020 Not Available [facility] 3 02:58:29 Pain of right shoulder joint 82067107594 383660 Active 2020 Not Available [facility] 3 02:58:25 Memory impairme nt 637406582 Active 2020 Not Available [facility] 3 02:58:28 Active or passive immuniza tion Active 2021 Not Available [facility] 3 02:58:25 Seen in emergenc y clinic 199808657 Active 2021 Not Available [facility] 3 02:58:26 Transiti on of care 29141412397 05 Active 2021 Not Available [facility] 3 02:58:26 Gynecolo gic examinat ion Active 2021 Not Available [facility] 3 02:58:30 Idiopath ic peripher al neuropat hy 65470550 Active 2021 Not Available [facility] 3 02:58:27 Allergic contact dermatit is 221618320 Active 2021 Not Available [facility] 3 02:58:27 Hypothyr oidism 71919772 Active 2021 Not Available [facility] 3 02:58:29 Gastroes ophageal reflux disease without esophagi tis 789075055 Active 2022 Adis Lloyd MD [address], [place], [address] , [facility] [employer] [facility] 3 14:27:31 Urinary tract infectio us disease 32463937 Active 2022 Adis Lloyd MD [address], [address], [place], [address] , [facility] [employer] [facility] 3 12:01:06 Mammogra phy abnormal 875483985 Active 2023 ALLYSON Dorado [address], [place], [address] , [facility] [email or web address] [facility] 5 17:20:30 Postmeno pausal osteopor osis 576320140 Active 2023 Adis Lloyd MD [address], [address], [place], [address] , [employer] 4 10:29:18 Biljuan jsoea l earache 757103845 Active 2024 Adis Lloyd MD [address], [place], [address] , [employer] 10:22:53 Problem Notes None recorded. Procedures Surgical History Date Name Laterality Status Provider Name and Address Organization Details Recorded Time 10/12/19 25 Ear Irrigation completed Adis Lloyd MD [address], [place], [address], [employer] 10/12/2024 12:16:47 11/10/19 24 Medicare Wellness CPT Code, subsequent completed November SHARI La [employer] 11/10/2023 14:15:46 05/26/20 20 Most Recent Bone Density completed Not Available [facility] 10/30/2022 02:51:41 05/26/20 20 Most Recent Mammogram completed Not Available [facility] 10/30/2022 02:51:41 10/29/19 18 Date of Last Pap Smear completed Not Available [facility] 10/30/2022 02:51:41 Spinal Fusion completed Not Available [facility] 10/30/2022 02:51:44 total replacement of left hip joint completed Not Available [facility] 10/30/2022 02:51:44 bariatric operative procedure completed Not Available [facility] 10/30/2022 02:51:44 Total hip arthroplasty completed Not Available [facility] 10/30/2022 02:51:44 cholecystectomy completed Not Available [facility] 10/30/2022 02:51:44 Imaging Results None recorded. Procedure Notes None recorded. Medical Equipment None Reported. Allergies Allergen ID Allergen Name Allergen Category Reaction Reaction Severity Criticality Documentation Date Start Date Code Code System Note Provider Name and Address Organization Details Recorded Time 5252 tramadol medicatio n confusion tachycard ia moderate severe Not available 10/30/2022 38840 RxNorm Not Available [facility] 03:08:32 5253 morphine medicatio n itching severe Not available 10/30/2022 7052 RxNorm Not Available [facility] 3 03:08:32 5254 levothyro xine sodium medicatio n vomiting moderate Not available 10/30/2022 95875 RxNorm Adis Lloyd MD [address], [place], [address] , [facility] [email or web address] [facility] 4 11:43:52 5255 black cohosh extract medicatio n itching severe Not available 10/30/2022 03653 5 RxNorm Not Available [facility] 3 03:08:33 Medications Name Sig Start Date [...] day. 11/[address] Hill [facility] Not Available Not Available Not Available [...] prn for severe itching, as needed only. 01/12 completed Not Available Not Available Not Available oxycodone 5 mg/5 mL oral solution [...] 12/02 completed Internal note: TOO EXPENSIV Anjel l note: Take as per Hemat's recommen [...] Not Available Not Available Not Avai lable [place] Thyroid 15 mg tablet Take 1 tablet [...] BY MOUTH EVERY 24 HOURS NEEDED ONLY 01/12 completed Not Available Not Available Not Available amoxicill in 875 mg-potass ium clavulana te 125 mg tablet 08/14 completed Not Available Not Available Not Available oxycodone 5 mg tablet 07/08 completed Not Available Not Available Not Available neomycin- polymyxin -hydrocor t 3.5 mg-10,000 unit/mL-1 % ear drops,nati p INSTILL 4 DROPS INTO AFFECTED EAR(S) BY OTIC ROUTE 3 TIMES PER DAY 01/12 completed Not Available Not Available Not Available enoxapari n 40 mg/0.4 mL subcutane ous [...] 1 CAPSULE BY MOUTH DAILY IN [facility] 07/08 completed Not Available Not Available Not Available Premarin 0.625 mg/gram vaginal cream Insert 1 applicat orful twice a week by vaginal route. 10/19 completed Not Available Not Available Not Available vitamin I49-mdnqh acid injection solution Take by injectio n route. 06/25 completed once a month Not Available Not Available Not Available bupropion HCl XL 300 mg 24 hr tablet, extended release TAKE 1 TABLET BY MOUTH DAILY IN [facility] active Not Available Not Available No t Available bupropion HCl XL 150 mg 24 hr tablet, extended release TAKE 1 TABLET BY MOUTH DAILY IN THE MORNING ALONG WITH THE 300MG 01/12 completed Not Available Not Available Not Available topiramat e 50 mg tablet Take [...] blood by Pulse oximetry Heart rate Systolic And Diastolic Provider Name and Address Organization Details Last Updated DateTime 168.91 cm 42.5 kg/m2 260070. 21 g 97.6 [degF] 95 % 95 % 90 /min 128/92 mm[Hg] Kasey Flores RN [facility] [employer] 12:09:50 Date Recorded Oxygen saturation Oxygen saturation in Arterial blood by Pulse oximetry Provider Name and Address Organization Details Last Updated DateTime 01/12/2025 95 % 95 % Adis Lloyd MD [address] [facility] [address], [place], [address], [facility] [employer] 01/12/2025 14:13:12 Date Recorded Body height Body mass index (BMI) Body weight Body temperature Heart rate Systolic And Diastolic Provider Name and Address Organization Details Last Updated DateTime 168.91 cm 40.9 kg/m2 741072. 64 g 97.3 [degF] 97 /min 128/80 mm[Hg] Kasey Flores RN [facility] [employer] [facility] 5 14:07:24 Date Recorded Body height Body mass index (BMI) Body weight Body temperature Respiratory rate Heart rate Oxygen saturation Oxygen saturation in Arterial blood by Pulse oximetry Systolic And Diastolic Provider Name and Address Organization Details Last Updated DateTime 168.91 cm 40.2 kg/m2 644629. 22 g 98.6 [degF] 20 /min 96 /min 98 % 98 % 136/76 mm[Hg] Iban Mao [facility] [email or web address] [facility] 14:20:26 Date Recorded Body height Body mass index (BMI) Body weight Body temperature Heart rate Respiratory rate Oxygen saturation Oxygen saturation in Arterial blood by Pulse oximetry Systolic And Diastolic Provider Name and Address Organization Details Last Updated DateTime 4 168.91 cm 40.1 kg/m2 949042. 64 g 98.4 [degF] 78 /min 20 /min 98 % 98 % 134/70 mm[Hg] Iban Mao [facility] [email or web address] [facility] 4 12:29:58 Date Recorded Oxygen saturation Oxygen saturation in Arterial blood by Pulse oximetry Provider Name and Address Organization Details Last Updated DateTime 07/08/2024 96 % 96 % Adis Lloyd MD [address] [place] [address], [address], [facility] [email or web address] [facility] 07/08/2024 12:33:42 Date Recorded Body height Body mass index (BMI) Body weight Body temperature Heart rate Systolic And Diastolic Provider Name and Address Organization Details Last Updated DateTime 4 168.91 cm 40.9 kg/m2 143970. 04 g 97.3 [degF] 92 /min 124/86 mm[Hg] Allie Ferreira RN [facility] [email or web address] [facility] 4 12:27:29 Social History Question Answer Notes LastModified by Organization Details LastModified Time Tobacco Smoking Status Never Smoker Daniela jaimes, [facility] [email or web address] [facility] 09/03/2023 11:42:04 Do You Have An Advance Directive? No Patient Declined Informatio n. [id number] Information not available 10/30/2022 Do You Wear A Helmet When Biking? No [email or web address] Information not available 09/03/2023 What Is Your Level Of Caffeine Consumption? Occasional [id number] Information not available 10/30/2022 In The 14 Days Before Symptom Onset, Have You Had Close Contact With A Laboratory-confi rmed COVID-19 While That Case Was Ill? No [email or web address] Information not available 09/03/2023 In The 14 Days Before Symptom Onset, Have You Had Close Contact With A Person Who Is Under Investigation For COVID-19 While That Person Was Ill? No [email or web address] Information not available 09/03/2023 What Type Of Diet Are You Following? REGULAR [id number] Information not available 10/30/2022 Which Illicit Or Recreational Drugs Have You Used? No [email or web address] Information not available 09/03/2023 What Is The Highest Grade Or Level Of School You Have Completed Or The Highest Degree You Have Received? [id number] [email or web address] Information not available 09/03/2023 Have There Been Any Changes To Your Family Or Social Situation? No [email or web address] Information not available 09/03/2023 What Is The Fluoride Status Of Your Home? Unknown [email or web address] Information not available 09/03/2023 Are There Any Guns Present In Your Home? No [email or web address] Information not available 09/03/2023 Do You Use Insect Repellent Routinely? Yes [email or web address] Information not available 09/03/2023 Where Do You Live? SingleLevelHouse [email or web address] Information not available 09/03/2023 Advance Directive- Providers Has Reviewed Directive And Consents To Follow Them (insert Provider Name With Any Objectives In Notes Field) No [id number] Information not available 10/30/2022 Do You Have A Medical Power Of Optometry Doctor? No [email or web address] Information not available 09/03/2023 What Was The Date Of Your Most Recent Tobacco Screening? 11/10/2023 Information not available 11/10/2023 Do You Have Any Pets? No [email or web address] Information not available 09/03/2023 What Is Your Relationship Status? [id number] Information not available 10/30/2022 Do You Use Your Seat Belt Or Car Seat Routinely? Yes [email or web address] Information not available 09/03/2023 Do You Have Smoke And Carbon Monoxide Detectors In Your Home? Yes [email or web address] Information not available 09/03/2023 Are You Passively Exposed To Smoke? No [email or web address] Information not available 09/03/2023 Are There Any Smokers In Your House? No [email or web address] Information not available 09/03/2023 Do You Participate In Social Media? Yes [email or web address] Information not available 09/03/2023 Do You Use Sunscreen Routinely? Yes [email or web address] Information not available 09/03/2023 Has Tobacco Cessation Counseling Been Provided? No [email or web address] Information not available 09/03/2023 Have You Recently Traveled Abroad? No [email or web address] Information not available 09/03/2023 Are You Currently In School? No Information not available 09/03/2023 Do You Have Any Dietary Restrictions? No [email or web address] Information not available 09/03/2023 Sex: Female Functional Status Question Answer Note LastModified by Organizat ion Details LastModified Time Do you use any illicit or recreational drugs? No [email or web address] Information not available 09/03/2023 Do you or have you ever used any other forms of tobacco or nicotine? No [email or web address] Information not available 09/03/2023 What is your level of alcohol consumption? Occasional [id number] Information not available 10/30/2022 Do you or have you ever used smokeless tobacco? Never used smokeless tobacco [id number] Information not available 10/30/2022 Do you or have you ever used e-cigarettes or vape? Never used electronic cigarettes [id number] Information not available 09/03/2023 What is your exercise level? None [id number] Information not available 10/30/2022 Mental Status Question Answer Note LastModified by Organization D etails LastModified Time Do you feel stressed (tense, restless, nervous, or anxious, or unable to sleep at night)? [id number] Information not available 09/03/2023 Family History Relationship Description Onset Age of this Age Resolved Age Notes LastModified by Organization Details LastModified Time Father Malignant tumor of esophagus [email or web address] Not available 2023 11:43:58 Paternal Grandfather Malignant tumor of esophagus Not available 2023 11:43:58 Brother Diabetes mellitus xs3 [id number] Not available 10/30/2022 02:51:47 Sister Diabetes mellitus [id number] Not available 10/30/2022 02:51:47 Mother Congestive heart failure [email or web address] Not available 2023 11:43:58 Mother Hypertensive disorder [email or web address] Not available 2023 11:43:58 Mother Heart disease [email or web address] Not available 2023 11:43:58 Sister Disorder of thyroid gland 3 sister s [email or web address] Not available 01/23/2023 10:05:42 Sister Disorder of thyroid gland [id number] Not available 2023 11:43:58 Brother Disorder of thyroid gland Not available 2023 11:43:58 Medical History Condition [...] Non-US Vaccine (EpiVacCorona) 1 completed Not Available [facility] 10/30/2022 03:08:20 COVID-19 PS Non-US Vaccine (EpiVacCorona) 1 completed Not Available [facility] 10/30/2022 03:08:20 Hep A, adult 1 completed Not Available [facility] 10/30/2022 03:08:20 Influenza, split virus, quadrivalent, PF 0 completed Not Available [facility] 10/30/2022 03:08:20 Influenza, split virus, quadrivalent, PF 9 completed Not Available [facility] 10/30/2022 03:08:20 pneumococcal polysaccharide PPV23 9 completed Not Available [facility] 10/30/2022 03:08:20 Hep B, adult 8 completed Not Available [facility] 10/30/2022 03:08:21 Influenza, split virus, quadrivalent, PF 8 completed Not Available [facility] 10/30/2022 03:08:21 Hep B, adult 8 completed Not Available [facility] 10/30/2022 03:08:21 Hep B, adult 7 completed Not Available [facility] 10/30/2022 03:08:21 Influenza, split virus, quadrivalent, PF 2 completed Not Available [facility] 10/30/2022 03:08:21 Hep A, adult 1 completed Not Available [facility] 10/30/2022 03:08:21 Influenza, split virus, quadrivalent, PF 1 completed Not Available [facility] 10/30/2022 03:08:21 Influenza, split virus, quadrivalent, PF 7 completed Not Available [facility] 10/30/2022 03:08:21 Influenza, split virus, trivalent, PF 4 completed Iban jaimes [facility] 06/22/2024 16:32:04 Tdap 4 completed Iban jaimes [facility] 06/22/2024 16:32:04 Past Encounters Encounter ID Performer Location Encounter Start Date Encounter Closed Date Diagnosis/Indication Diagnosis SNOMED-CT Code Diagnosis ICD10 Code Diagnosis Note [id number] Adis Lloyd MD [facility] [place] [address] [place] [address] 11/22/2020 00:00:00 11/22/2020 12:00:37 [id number] [facility] ic_[facility] _ATHENA_M IGRATION_ DEFAULT_1 _1 , 12/21/2020 00:00:00 12/21/2020 18:01:50 [id number] Adis Lloyd MD [facility] [place] [address] [place] [address] 12/21/2020 00:00:00 12/21/2020 12:30:10 [id number] Adis Lloyd MD [facility] [place] [address] [place] [address] 01/18/2021 00:00:00 01/18/2021 12:36:21 [id number] Adis Lloyd MD [facility] [place] [address] [place] [address] 02/15/2021 00:00:00 02/15/2021 12:29:14 [id number] Adis Lloyd MD [facility] [place] [address] [place] [address] 05/31/2021 00:00:00 05/31/2021 15:04:58 [id number] Adis Lloyd MD [facility] [place] [address] [place] [address] 06/18/2021 00:00:00 06/18/2021 13:19:28 [id number] Adis Lloyd MD [facility] [place] [address] [place] [address] 08/14/2021 00:00:00 08/14/2021 14:50:27 [id number] Adis Lloyd MD [facility] [place] [address] [place] [address] 10/10/2021 00:00:00 10/10/2021 11:52:49 [id number] Adis Lloyd MD [facility] [place] [address] [place] [address] 11/21/2021 00:00:00 11/21/2021 11:15:22 [id number] Adis Lloyd MD [facility] [place] [address] [place] [address] 01/22/2022 00:00:00 01/22/2022 10:42:12 [id number] Adis Lloyd MD [facility]_[address] [address] 03/27/2022 00:00:00 03/27/2022 15:36:56 [id number] Adis Lloyd MD [address] [address] 05/08/2022 00:00:00 05/08/2022 18:10:06 [id number] Adis Lloyd MD [address] [address] 08/08/2022 00:00:00 08/08/2022 12:22:40 [id number] Adsi Lloyd MD [address] [address] 11/19/2022 14:03:23 11/19/2022 14:42:13 Hypothyroidism 22181938 E03.9 Chronic low back pain 27 2197054 M54.50 Chronic pain syndrome 37 1617862 G89.4 Gouty arthropathy 336677 008 M10.09 Hypertensive disorder 38 867103 I10 Lumbar spondylosis 11939 0009 M47.896 Obesity 973817101 E66.9 Polyarthropathy 57505993 M13.0 Chronic ki dney disease stage 3 113639584 N18.30 [id number] Marlin Pruett MD [facility] [place] [address] [place] [address] 01/23/2023 09:28:47 01/23/2023 10:38:31 Hypothyroidism 75777338 E03.9 She was not able to tolerate [...] and minerals and reduce inflammati on. Fatigue 82548221 R53.83 Will send for thyroid antibodies to screen for autoimmune thyroid disease in addition to CBC, CMP, ferritin, GIORGIO/rheuma toid screen and B12/folate to screen for other potential secondary causes of fatigue. Liver enzy mes level above reference range 063888917 R74.8 Send for liver ultrasound along with [...] she chooses to go outside of the [facility] system to obtain labwork she was [...] ing. Thank you for this consultati on. [id number] Adis Lloyd MD [facility] [address] [address] 02/18/2023 11:40:57 02/18/2023 12:30:38 Hypothyroidism 43030049 E03.9 Chronic low back pain 27 5617353 M54.50 Chronic pain syndrome 37 7492337 G89.4 Gouty arthropathy 907236 008 M10.09 Hypertensive disorder 38 371100 I10 Lumbar spondylosis 56471 0009 M47.896 Obesity 982755447 E66.9 Polyarthropathy 71166159 M13.0 Chronic ki dney disease stage 3 536621011 N18.30 Memory impairment 034274 006 R41.3 [id number] Adis Lloyd MD [place] [address] 03/25/2023 12:35:02 03/25/2023 14:03:46 Hypothyroidism 75711362 E03.9 Chronic low back pain 27 7365880 M54.50 Chronic pain syndrome 37 2926133 G89.4 Gouty arthropathy 147751 008 M10.09 Hypertensive disorder 38 861621 I10 Lumbar spondylosis 50416 0009 M47.896 Obesity 696505768 E66.9 Polyarthropathy 35082162 M13.0 Chronic ki dney disease stage 3 332163868 N18.30 Memory impairment 782866 006 R41.3 Obsessive- compulsive disorder 775508819 F42.9 Gastroesop hageal reflux disease without esophagitis 197746680 K21.9 [id number] Adis Lloyd MD [place] [address] 04/29/2023 12:09:36 04/29/2023 13:02:24 Hypothyroidism 75411893 E03.9 Chronic low back pain 27 7681229 M54.50 Chronic pain syndrome 37 8917792 G89.4 Gouty arthropathy 788561 008 M10.09 Hypertensive disorder 38 425230 I10 Lumbar spondylosis 74735 0009 M47.896 Obesity 651487699 E66.9 Polyarthropathy 08746258 M13.0 Chronic ki dney disease stage 3 155967564 N18.30 Memory impairment 520499 006 R41.3 Obsessive- compulsive disorder 667437488 F42.9 Gastroesop hageal reflux disease without esophagitis 135471308 K21.9 [id number] Adis Lloyd MD [address] [address] 09/03/2023 11:41:41 09/03/2023 12:45:10 Hypothyroidism 51034535 E03.9 Chronic low back pain 27 7890424 M54.50 Chronic pain syndrome 37 5736168 G89.4 Gouty arthropathy 588261 008 M10.09 Hypertensive disorder 38 723477 I10 Lumbar spondylosis 49895 0009 M47.896 Obesity 194375791 E66.9 Polyarthropathy 52252230 M13.0 Chronic ki dney disease stage 3 662925313 N18.30 Memory impairment 760922 006 R41.3 Obsessive- compulsive disorder 446975771 F42.9 Gastroesop hageal reflux disease without esophagitis 002859622 K21.9 Screening for osteoporosis 209523789 Z13.820 Screening mammography 24 503478 Z12.31 [id number] Adis Lloyd MD [address] [address] 11/10/2023 15:58:23 11/10/2023 16:45:31 Adult health examination 220786216 Z00.00 Screening for disorder 866757492 Z13.9 Hypothyroidism 73789046 E03.9 Chronic low back pain 27 1253030 M54.50 Chronic pain syndrome 37 5359405 G89.4 Gouty arthropathy 245290 008 M10.09 Hypertensive disorder 38 187829 I10 Lumbar spondylosis 95909 0009 M47.896 Obesity 895837444 E66.9 Polyarthropathy 02929557 M13.0 Chronic ki dney disease stage 3 910337255 N18.30 Memory impairment 633968 006 R41.3 Obsessive- compulsive disorder 854945730 F42.9 Gastroesop hageal reflux disease without esophagitis 959146866 K21.9 [id number] Adis Lloyd MD [address] [address] 05/11/2024 14:11:07 05/11/2024 14:45:49 Hypothyroidism 14945511 E03.9 Chronic low back pain 27 2165326 M54.50 Chronic pain syndrome 37 9770308 G89.4 Gouty arthropathy 917544 008 M10.09 Hypertensive disorder 38 664667 I10 Lumbar spondylosis 72327 0009 M47.896 Obesity 630232914 E66.9 Polyarthropathy 85225404 M13.0 Chronic ki dney disease stage 3 499603031 N18.30 Memory impairment 357477 006 R41.3 Obsessive- compulsive disorder 368513789 F42.9 Gastroesop hageal reflux disease without esophagitis 888681922 K21.9 Mammography abnormal 168 698901 R92.8 [id number] Adis Lloyd MD [address] [address] 06/22/2024 12:14:49 06/22/2024 14:00:28 Gouty arthropathy 559696317 M10.09 Chronic pain syndrome 37 9357454 G89.4 Hypothyroidism 87972208 E03.9 Chronic low back pain 27 9602798 M54.50 Hypertensive disorder 38 515982 I10 Lumbar spondylosis 22386 0009 M47.896 Obesity 496691384 E66.9 Polyarthropathy 90099044 M13.0 Chronic ki dney disease stage 3 749266181 N18.30 Memory impairment 531537 006 R41.3 Obsessive- compulsive disorder 415559429 F42.9 Gastroesop hageal reflux disease without esophagitis 051196877 K21.9 Mammography abnormal 168 923469 R92.8 Administra tion of influenza vaccine 34151501 Z23 Active immunization 3387 9002 Z23 Impacted c erumen of bilateral ears 8489292754 563695 H61.23 [id number] Adis Lloyd MD [address] [address] 07/08/2024 12:04:45 07/08/2024 12:59:55 Chronic pain syndrome 908548070 G89.4 Gouty arthropathy 820539 008 M10.09 Hypothyroidism 55845129 E03.9 Chronic low back pain 27 9230498 M54.50 Hypertensive disorder 38 945510 I10 Lumbar spondylosis 72738 0009 M47.896 Obesity 832521484 E66.9 Polyarthropathy 75523775 M13.0 Chronic ki dney disease stage 3 258411198 N18.30 Memory impairment 469875 006 R41.3 Obsessive- compulsive disorder 361566213 F42.9 Gastroesop hageal reflux disease without esophagitis 956633949 K21.9 Impacted c erumen of bilateral ears 9189042151 845661 H61.23 [id number] Adis Lloyd MD [address] [address] 10/12/2024 11:56:32 10/12/2024 12:46:26 Hypothyroidism 35372013 E03.9 Chronic low back pain 27 7198818 M54.50 Chronic pain syndrome 37 0302236 G89.4 Gouty arthropathy 193293 008 M10.09 Hypertensive disorder 38 223910 I10 Lumbar spondylosis 56416 0009 M47.896 Obesity 457207565 E66.9 Polyarthropathy 07085793 M13.0 Chronic ki dney disease stage 3 971911569 N18.30 Memory impairment 958105 006 R41.3 Obsessive- compulsive disorder 258395417 F42.9 Gastroesop hageal reflux disease without esophagitis 100657530 K21.9 Impacted c erumen of bilateral ears 4176553700 954715 H61.23 Screening mammography 24 105846 Z12.31 Allergic c ontact dermatitis 190855795 L23.9 [id number] Adis Lloyd MD [address] [address] 01/12/2025 13:55:02 01/12/2025 14:22:38 Chronic pain syndrome 514604856 G89.4 Hypothyroidism 63573988 E03.9 Chronic low back pain 27 5706852 M54.50 Gouty arthropathy 905786 008 M10.09 Hypertensive disorder 38 305016 I10 Lumbar spondylosis 29371 0009 M47.896 Obesity 348243807 E66.9 Polyarthropathy 67259565 M13.0 Chronic ki dney disease stage 3 396801580 N18.30 Memory impairment 212032 006 R41.3 Obsessive- compulsive disorder 914901106 F42.9 Gastroesop hageal reflux disease without esophagitis 751662585 K21.9 Allergic c ontact dermatitis 412106550 L23.9 Health Concerns Section Related Observation LastModified by Organization Detai ls LastModified Time None Recorded Concern Status LastModified by Organization Details LastModified Time None Recorded Advance Directives Directive N: Patient declined informat ion. Payers Insurance Date Sequence Insurance Name Policy Number Policy Murray Covered Member ID Murray Member ID Guarantor Name 01/09/2025 1 [facility] (MEDICARE REPLACEMENT/AD VANTAGE - HMO) [id number] Monica Rolon [id number] Monica Rolon 01/12/2025 2 [place] WHEN MEDICARE OR MEDICARE REPLACEMENT PRIMARY) Monica Rolon [id number] Monica Rolon Notes Date Note Type Note Provider Name and Address Organization Details Recorded Time 05/11/2024 text/html Pt is here for f [...] she was seeing before for this at [place] [facility] is gone and she will need to see another provider for this in future.Pt is f/u with her Bariatric surgeon and got another procedure done on 08/01/21 and she is f/u with them. Pt is f/u with Pain clinic at [facility] [place] and is doing overall better with them.Pt saw breast surgeon at [place] for her abnormal mammo result and they did testing and it all came back good, no concern with it.Pt has seen GI and had EGD and colonoscopy done with her GI and all came back good as per pt.Pt has seen Cardio at [facility] and all her heart testing came back good as per pt.Pt has seen Medical Recruiter at [facility] and got multiple testing done with them and everything came back good as per pt.Pt is f/u with Psych at [facility] for her mood concerns. Doing overall Ok with her mood. Denies any SI/HI. Denies any problems with any of her meds.Pt saw spine surgeon at [place] for her chronic back pain and they did not recommend any procedure for her. Adis Lloyd MD [address] [place] [address], [facility] [address], [place], [address], [place] [employer] 05/11/2024 14:43:38 06/22/2024 text/html Pt is here [...] she was seeing before for this at [place] [facility] is gone and she will need to see another provider for this in future.Pt is f/u with her Bariatric surgeon at [facility] and got another procedure done on 08/01/21 and she is f/u with them. Pt is f/u with Pain clinic at [facility] [place] and is doing overall better with them.Pt saw breast surgeon at [place] for her abnormal mammo result and they did testing and it all came back good, no concern with it.Pt has seen GI and had EGD and colonoscopy done with her GI and all came back good as per pt.Pt has seen Cardio at [facility] and all her heart testing came back good as per pt.Pt has seen Medical Recruiter at [facility] and got multiple testing done with them and everything came back good as per pt.Pt is f/u with Psych at [facility] for her mood concerns. Doing overall Ok with her mood. Denies any SI/HI. Denies any problems with any of her meds.Pt saw spine surgeon at [place] for her chronic back pain and they did not recommend any procedure for her. Adis Lloyd MD [address] [facility], [facility] [address], [place], [address], [employer] 06/22/2024 12:57:32 07/08/2024 text/html Pt is here [...] she was seeing before for this at [place] [facility] is gone and she will need to see another provider for this in future.Pt is f/u with her Bariatric surgeon at [facility] and got another procedure done on 08/01/21 and she is f/u with them. Pt is f/u with Pain clinic at [facility] [place] and is doing overall better with them. Pt will be getting spinal cord stimulator placement with them on 08/05/24.Pt saw breast surgeon at [place] for her abnormal mammo result and they did testing and it all came back good, no concern with it.Pt has seen GI and had EGD and colonoscopy done with her GI and all came back good as per pt.Pt has seen Cardio at [facility] and all her heart testing came back good as per pt.Pt has seen Medical Recruiter at [facility] and got multiple testing done with them and everything came back good as per pt.Pt is f/u with Psych at [facility] for her mood concerns. Doing overall Ok with her mood. Denies any SI/HI. Denies any problems with any of her meds.Pt saw spine surgeon at [place] for her chronic back pain and they did not recommend any procedure for her. Adis Lloyd MD [address] [place] [address], [place] [address], [place], [address], [facility] [employer] [facility] [email or web address] 07/08/2024 12:51:03 10/12/2024 text/html Pt is here for f /u on her meds and b/l ear flushing. Doing overall well with her current meds and denies any problem with them. Denies any new concerns. Pt got cervical spinal fusion surgery & thoracic laminectomy done with her Spine surgeon at [place]. Pt is f/u with Pain clinic at [facility] [place] and is doing overall better with them.Pt did not tolerate Levothyroxine. Pt has tried 4 different timing for it, but she still got s/e from it. So she stopped taking it and her symptoms resolved next day.Pt is requesting refill on Hydroxyzine for her chronic itching as the specialist she was seeing before for this at [place] [facility] is gone and she will need to see another provider for this in future.Pt is f/u with her Bariatric surgeon at [facility] and got another procedure done on 08/01/21 and she is f/u with them. Pt saw breast surgeon at [place] for her abnormal mammo result and they did testing and it all came back good, no concern with it.Pt has seen GI and had EGD and colonoscopy done with her GI and all came back good as per pt.Pt has seen Cardio at [facility] and all her heart testing came back good as per pt.Pt has seen Medical Recruiter at [facility] and got multiple testing done with them and everything came back good as per pt.Pt is f/u with Psych at [facility] for her mood concerns. Doing overall Ok with her mood. Denies any SI/HI. Denies any problems with any of her meds.Pt saw spine surgeon at [place] for her chronic back pain and they did not recommend any procedure for her. Adis Lloyd MD [address] [place] [address], [place] [address], [place], [address], [place] [facility] 10/12/2024 12:38:22 01/12/2025 text/html Pt is here for f /u on her meds and chronic conditions. Doing overall well with her current meds and denies any problem with them. Denies any new concerns. Pt got cervical spinal fusion surgery & thoracic laminectomy done with her Spine surgeon at [place]. Pt is f/u with Pain clinic at [facility] [place] and is doing overall better with them.Pt did not tolerate Levothyroxine. Pt has tried 4 different timing for it, but she still got s/e from it. So she stopped taking it and her symptoms resolved next day.Pt is requesting refill on Hydroxyzine for her chronic itching as the specialist she was seeing before for this at [place] [facility] is gone and she will need to see another provider for this in future.Pt is f/u with her Bariatric surgeon at [facility] and got another procedure done on 08/01/21 and she is f/u with them. Pt saw breast surgeon at [place] for her abnormal mammo result and they did testing and it all came back good, no concern with it.Pt has seen GI and had EGD and colonoscopy done with her GI and all came back good as per pt.Pt has seen Cardio at [facility] and all her heart testing came back good as per pt.Pt has seen Medical Recruiter at [facility] and got multiple testing done with them and everything came back good as per pt.Pt is f/u with Psych at [facility] for her mood concerns. Doing overall Ok with her mood. Denies any SI/HI. Denies any problems with any of her meds.Pt saw spine surgeon at [place] for her chronic back pain and they did not recommend any procedure for her. Adis Lloyd MD [address] [place] [address], [facility] [address], [place], [address], [facility] [email or web address] 01/12/2025 14:24:39 OBGyn Episode No OBEpisode recorded.
--- OUTSIDE RECORDS SUMMARY | 2025-03-21 10:33 | XMS_ITS | Patient Health Record ---
Author Organization [facility] [employer] Address [address] [place] [address] Care Team Providers Care Drawing Tender Name Role Phone Loni Neely Unavailable [phone] Reason For Referral No Information Medications Medication SIG (Take, Route, Frequency, Duration) Notes Start Date End Date Status busPIRone HCl 5 MG Oral 11/10/2020 Active Amoxicillin 500 MG Oral 11/10/2020 Active Gabapentin 800 MG Oral 11/10/2020 A ctive DULoxetine HCl 60 MG Oral 11/10/2020 Active Amitriptyline HCl 150 MG Oral 11/10/2020 Active tiZANidine HCl 4 MG Oral 11/10/2020 Active MUPIROCIN 2 % OINT *Reorder from [employer] for eRx and Interaction Alerts* 11/10/2020 Active VENLAFAXINE HCL ER 150 MG CP24 *Reorder from [employer] for eRx and Interaction Alerts* 11/10/2020 Active Sertraline HCl 50 MG Oral 11/10/2020 Active QUETIAPINE FUMARATE 100 MG TABS *Reorder from [employer] for eRx and Interaction Alerts* 11/10/2020 Active Carvedilol 6.25 MG Oral 11/10/2020 Active TIZANIDINE HYDROCHLORIDE 4 MG TABS *Reorder from [employer] for eRx and Interaction Alerts* 11/10/2020 Active QUEtiapine Fumarate 50 MG Oral 11/10/2020 Active TOPIRAMATE 50 MG TABS *Reorder f rom [employer] for eRx and Interaction Alerts* 11/10/2020 Active LISINOPRIL 10 MG TABS *Reorder f rom [employer] for eRx and Interaction Alerts* 11/10/2020 Active Allopurinol 100 MG Oral 11/10/2020 Active PEG 3350-ELECTROLYTE 240-22.72-6.72 -5.84 gram Oral *Reorder from [employer]|tab for eRx and Interaction Alerts* 11/10/2020 Active Omeprazole 20 MG Oral 11/10/2020 Ac tive Sucralfate 1 GM/10ML Oral 11/10/2020 Active Triamcinolone Acetonide 0.1% External 11/10/2020 Active busPIRone HCl 10 MG Oral 11/10/2020 Active Lisinopril 10 MG Oral 11/10/2020 Ac tive Sertraline HCl 100 MG Oral 11/10/2020 Active Cyanocobalamin 1000 MCG/ML Injection 11/10/2020 Active metroNIDAZOLE 500 MG Oral 11/10/2020 Active Amitriptyline HCl 50 MG Oral 11/10/2020 Active QUEtiapine Fumarate 100 MG Oral 11/10/2020 Active ALLOPURINOL 100 MG TABS *Reorder from [employer]|tab for eRx and Interaction Alerts* 11/10/2020 Active Phentermine HCl 15 MG Oral 11/10/2020 Active hydrOXYzine HCl 50 MG Oral 11/10/2020 Active Immunizations Vaccine Route Administration Date Status Comme nts Hep B, adult dosage Unknown 04/19/2009 Administered Hep B, adult dosage Unknown 06/02/2009 Administered Hep B, adult dosage Unknown 07/04/2010 Administered Hep B, adult dosage Unknown 07/09/2017 Administered Hep B, adult dosage Unknown 09/23/2017 Administered Hep B, adult dosage Unknown 07/20/2018 Administered HepB-CpG Unknown 09/02/2018 Administered Influenza (split), seasonal, intradermal, preservative free Unknown 09/30/2016 Administered Influenza virus vaccine, quadrivalent (IIV4), split virus, 0.25 mL dosage Unknown 06/01/2019 Administered Influenza, unspecified formulation Unknown 07/27/2019 A dministered MMR Unknown 04/19/2009 Administered MMR Unknown 06/02/2009 Administered Novel Nftmjkusn-F3Q9-02, preservative free Unknown 06/25/2017 Administered Novel Vntsnuwvb-B3A0-55, preservative free Unknown 07/20/2018 Administered Novel Dsopnmveg-L9Q5-32, preservative free Unknown 07/15/2019 Administered Pneumococcal polysaccharide PPV23 Unknown 02/22/2019 Ad ministered Tdap Unknown 06/01/2019 Administered Varicella Unknown 04/19/2009 Administered Plan Of Treatment No Information Insurance Providers Payer Name Payer Address Payer Phone Subscriber Number Group Number Insured Name Patient Relationship to Insured Coverage Start Date Coverage End Date [facility] [address] [place] [address] [id number] CASIJUSTINE CARRINGTON Self - patient is the insured [place] [address] [address] [place] [address] [id number] JUSTINE LANCE Self - patient is the insured Medical (General) History Surgical History Surgery Date(Month/Year) Total replacement of hip ([id number]) Breast procedure ([id number]) Cholecystectomy ([id number]) Unlisted procedure stomach (23376) 09/01"
== END 2025-03-21 10:12 | disposition home or self-care (01) ==
PROVIDERS: PCP Family Medicine; Visit Provider Family Medicine
DX: R92.8 Other abnormal and inconclusive findings on diagnostic imaging of breast (principal)
CPT/HCPCS: 76642; 77062; 77066; G0279

== ENCOUNTER 2025-05-26 14:56 | Inpatient (IN) | payer MEDICARE, MEDICAID, SELFPAY ==
--- OUTSIDE RECORDS SUMMARY | 2025-05-16 06:00 | XMS_ITS | Continuity of Care Document ---
Author Organization [facility] Address [address] [place] [phone] Phone Care Team Providers Care Salesperson Meats Name Role Phone Jackie PERSAUD, [facility], [facility] Unavailable Unavailab le Allergies, Adverse Reactions, Alerts Substance Reaction Status Criticality No Known Allergies Active No Inform ation Medications Medication Instructions Dosage Effective Dates (start - stop) Status Comments CARVEDILOL 6.25MG TABLET TAKE ONE TABLET BY MOUTH TWICE A DAY - Active amitriptyline 150 mg tablet - Active atomoxetine 100 mg capsule - Active buspirone 10 mg tablet - Act anita bupropion HCl XL 300 mg 24 hr tablet, extended release - Active gabapentin 800 mg tablet - Active omeprazole 20 mg capsule,delayed release - Active Synthroid 75 mcg tablet - Active allopurinol 100 mg tablet - Active bupropion HCl XL 150 mg 24 hr tablet, extended release - Active hydroxyzine HCl 50 mg tablet - Active quetiapine 100 mg tablet - Active taznopyo-iprhketqt-uka rocort 3.5 mg-10,000 unit/mL-1 % ear drops,susp - Active triamcinolone acetonide 0.1 % topical cream - Active atomoxetine 80 mg capsule - Active cyclobenzaprine 10 mg tablet Javi-[id number] - Active diazepam 5 mg tablet - Activ e meloxicam 7.5 mg tablet - Active carvedilol 6.25 mg tablet - No Longer Active Advance Directives Directive Yes / No Effective Date File Name No Information Encounters Encounter Description Practice Location Reason(s) For Visit Diagnoses Date Provider Providers Copied on Encounter [facility], [address] [place] [address], [id number] , tel: [phone] [facility] No Information 5 Jackie [facility]. [address] [place], [id number] , . tel: [phone] [facility], [address] [place] [address], [id number] , tel: [phone] [facility] No Information Jackie [facility]. [address] [place], [id number] , [place]. tel: [phone] [facility], [address] [place] [address], [id number] , tel: [phone] [facility] Encounter for preprocedural cardiovascular examinationDizzinessH TNObesitySOBPalpitati onsFamily hx of other diseases of the circulatory system Jackie [facility]. [address] [place], [place], [id number] , . tel: [phone] Family History Family Member Type Diagnosis Age At Onset Mother Problem (finding) Congestive heart failur e Sister Problem (finding) Diabetes mellitus Mother Problem (finding) Coronary artery disease Brother Problem (finding) Diabetes mellitus Mother Problem (finding) Hypertension Payers Payer name Insurance type Covered republican ID Authoriza tion(s) No Information Social History Type Description Quantity Date Captured Comments Sex Female Smoking Status No Information Chief Complaint And Reason For Visit No Information Reason For Referral Reason For Referral No Information History Of Present Illness Encounter Date Complaint History Of Prese nt Illness No Information Functional Status Date Functional Assessmen t No Information Instructions Date Instruction Additional Infor mation No Information Assessments Type Assessment Date No Information Patient Care Teams Name Effective Dates (start - stop) Status Members No Information
--- OUTSIDE RECORDS SUMMARY | 2025-05-16 06:00 | XMS_ITS | Continuity of Care Document ---
Author Organization [facility] Address [address] [place] [phone] Phone Care Team Providers Care Granite Polisher Machine Name Role Phone Jackie PERSAUD, [facility], [facility] Unavailable Unavailab le Allergies, Adverse Reactions, Alerts [...] Active quetiapine 100 mg tablet - Active uzzdvhbx-iudhibcsh-jjv rocort 3.5 mg-10,000 unit/mL-1 % ear drops,susp [...] Diagnoses Date Provider Providers Copied on Encounter [facility], [address] [place] [address], [id number] , tel: [phone] [facility] [place] No Information [address] [facility]. [address], [id number] , . tel: [phone] [facility], [address] [place] [address], [id number] , tel: [phone] [facility] No Information Jackie [facility]. [address], [id number] , [place]. tel: [phone] [facility], [address] [place] [address], [id number] , tel: [phone] [facility] Encounter for preprocedural cardiovascular examinationDizzinessH TNObesitySOBPalpitati onsFamily hx of other diseases of the circulatory system Jackie [facility]. [address], [id number] , . tel: [phone] Family History Family Member Type Diagnosis Age [...]
[2025-05-26] VITALS (8 sets, daily range): BP systolic 122–157; BP diastolic 68–91; PULSE 62–132; RESP 18–24; TEMP 37–37.3; O2SAT 90–98; BMI 43.4
--- NOTE | ~2025-05-26 | US_ITS ---
ULTRASOUND ABDOMEN LIMITED (RIGHT UPPER QUADRANT) Clinical History: Transaminitis Comparison: CT chest 1 day prior Technique: Right upper quadrant sonography Findings: Liver: Normal size. Normal echotexture. No intrahepatic biliary ductal dilatation. Normal hepatopedal flow main portal vein. Micronodular contour. Common Duct: 7 mm. Gallbladder: Removed. Pancreas: Obscured by bowel gas. Right kidney: Unremarkable. Retrohepatic IVC: Unremarkable. IMPRESSION: 1. Hepatomegaly, with steatosis and/or diffuse hepatocellular disease. 2. Cirrhosis not excluded. Reviewed, dictated and finalized at location R.
--- NOTE | ~2025-05-26 | XR_ITS ---
XR chest 1V portable 06/02/2025 05:48 Indication: Right pneumonia Procedure: AP portable chest Comparison: Comparison to multiple prior studies sequentially, with oldest reviewed study dated 05/26/2025. Findings: Elevated right diaphragm. Persistent asymmetric right-sided airspace disease, compatible with pneumonia. No pleural effusion or pneumothorax. No acute osseous abnormality. Impression: 1: Asymmetric right-sided airspace disease, compatible with pneumonia without significant change. Reviewed, dictated and finalized at location B. Impression: 1: Asymmetric right-sided airspace disease, compatible with pneumonia without s ignificant change.
--- NOTE | ~2025-05-26 | XR_ITS ---
XR chest 1V portable 05/27/2025 21:13 Indication: Hypoxia Procedure: AP portable chest Comparison: 05/26/2025 Findings: There has been progression of diffuse right-sided airspace disease, compatible with pneumonia. Heart size normal. Elevated right diaphragm. Surgical changes present left upper abdomen. Impression: 1: Interval progression of right-sided airspace disease, compatible with pneumonia. Reviewed, dictated and finalized at location O. Impression: 1: Interval progression of right-sided airspace disease, compatible with pneumo jody.
--- NOTE | ~2025-05-26 | XR_ITS ---
EXAMINATION: XR chest 1V portable COMPARISON: No comparisons available. HISTORY: pneumonia FINDINGS: Bilateral infiltrates most marked right upper and right lower lobes with elevation right hemidiaphragm. No pneumothorax. Moderate cardiomegaly. Mediastinal and hilar contours are within normal limits. Bony thorax no acute abnormality. Miscellaneous: Spinal canal catheter noted. Impression: Interval progression Reviewed, dictated and finalized at location P. Impression: Interval progression
--- NOTE | ~2025-05-26 | CT_ITS ---
EXAMINATION: CTA chest PE protocol DATE: 05/26/2025 18:29 CDT INDICATION: Pneumonia. Hemoptysis. TECHNIQUE: Computed tomographic angiography (CTA) of the chest was performed with 100 mL Omnipaque-350 intravenous contrast. The dose-length product was 885.28 mGy-cm. Maximum intensity projection 3D-reconstructions of the aorta and other arteries were constructed by the technologist on a separate workstation. COMPARISON: Chest x-ray dated 05/26/2025. FINDINGS: Study is technically adequate without evidence for pulmonary embolism. There is right hilar and subcarinal lymphadenopathy, likely reactive. There are bilateral breast implants. No significant pleural or pericardial effusion. There is extensive bilateral airspace consolidation, more so on the right, consistent with pneumonia. Airspace disease is most confluent in the right lower lobe. No endobronchial lesions. No pneumothorax. No significant pleural or pericardial effusion. There is surgical changes in the left upper abdomen. IMPRESSION: 1. Extensive bilateral airspace disease, compatible with pneumonia, right greater than left. 2: Enlarged mediastinal and right hilar lymph nodes, likely reactive. Reviewed, dictated and finalized at location O. IMPRESSION: 1. Extensive bilateral airspace disease, compatible with pneumonia, right great er than left. 2: Enlarged mediastinal and right hilar lymph nodes, likely reactive.
--- NOTE | ~2025-05-26 | CT_ITS ---
EXAMINATION: CT shoulder RT wo con DATE: 05/30/2025 10:57 INDICATION: Right shoulder pain. TECHNIQUE: Computed tomography (CT) of the right shoulder was performed without intravenous contrast. Automated exposure control and iterative reconstruction technique were employed. The dose-length product was 774.11 mGy-cm. COMPARISON: Chest CT 05/26/2025 FINDINGS: There are widespread airspace and groundglass opacities in right lung. There is a small right pleural effusion. Alignment is normal. No fracture. There is severe osteoarthritis of acromioclavicular joint and mild osteoarthritis of glenohumeral joint. IMPRESSION: 1. Polyarticular osteoarthritis. 2. Diffuse right lung disease, consistent with pneumonia. 3. Small right pleural effusion. Reviewed, dictated and finalized at location E.
--- NOTE | ~2025-05-26 | XR_ITS ---
EXAMINATION: XR chest 1V portable COMPARISON: No comparisons available. HISTORY: congestion FINDINGS: There are large bilateral infiltrates most marked in the right upper and right lower lobes. No pneumothorax. Heart is normal size. Mediastinal and hilar contours are within normal limits. Bony thorax no acute abnormality. Miscellaneous: Spinal canal catheter noted. Impression: Bilateral pneumonia Reviewed, dictated and finalized at location P. Impression: Bilateral pneumonia
--- NOTE | ~2025-05-26 | XR_ITS ---
Examination: XR chest 1V portable Clinical History: pneumonia Comparison: 1 day prior Technique: Portable AP Findings: Spinal stimulator leads. Heart size normal. Persistent diffuse severe airspace disease right lung, and elevated hemidiaphragm. Moderate/severe airspace disease left lung. No acute bony abnormality. IMPRESSION: 1. No significant change. 2. Bilateral pneumonia, right lung worse. Reviewed, dictated and finalized at location R.
--- NOTE | ~2025-05-26 | CT_ITS ---
EXAMINATION: CT cervical spine wo con DATE: 05/30/2025 10:56 INDICATION: Neck pain. TECHNIQUE: Computed tomography (CT) of the cervical spine was performed without intravenous contrast. Automated exposure control and iterative reconstruction technique were employed. The dose-length product was 515.78 mGy-cm. COMPARISON: CT cervical spine 12/15/2024 FINDINGS: The visualized portions of the lung apices demonstrate airspace and groundglass opacities on the right and groundglass opacities on the left, consistent with pneumonia. There is 5 degrees levocurvature of cervical spine. There is mild chronic anterior wedging of C7 vertebral body. There are changes of anterior fusion procedure from C4 to C6 with interbody devices and anterior plate and screws. There is moderately decreased disc height at C2-C3 and severely decreased disc height at C3-C4 and C6-C7. Osseous central spinal canal is developmentally small. The following disc levels are specifically discussed: C2-C3: There is mild bilateral uncovertebral joint osteoarthritis. There is mild bilateral facet joint osteoarthritis. There is mild left neural foraminal stenosis. There is mild central canal stenosis. C3-C4: There is severe right and moderate left uncovertebral joint osteoarthritis. There is severe right and moderate left facet joint osteoarthritis. There is moderate right and mild left neural foraminal stenosis. There is mild central canal stenosis. C4-C5: There is severe bilateral uncovertebral joint hypertrophy. There is severe bilateral facet joint osteoarthritis. There is moderate bilateral neural foraminal stenosis. There is mild central canal stenosis. C5-C6: There is severe bilateral uncovertebral joint hypertrophy. There is severe bilateral facet joint osteoarthritis. There is moderate bilateral neural foraminal stenosis. There is mild central canal stenosis. C6-C7: There is moderate bilateral uncovertebral joint osteoarthritis. There is mild bilateral facet joint osteoarthritis. There is mild right neural foraminal stenosis. There is mild central canal stenosis. C7-T1: There is no uncovertebral joint osteoarthritis. There is severe right and moderate left facet joint osteoarthritis. There is mild right neural foraminal stenosis. There is no central canal stenosis. IMPRESSION: 1. Severe cervical spondylosis, stable from 12/15/2024. 2. Anterior fusion procedure from C4 to C6. 3. Bilateral pneumonia. Reviewed, dictated and finalized at location E.
--- NOTE | 2025-05-26 16:04 | ED.GENADULT ---
HPI - General Adult General Chief complaint: Headache Stated complaint: MULTIPLE C/O Time Seen by Provider: 05/26/25 15:32 History of Present Illness HPI narrative: 65-year-old female present to the emergency department for evaluation for headache. Patient has had multiple dental procedures over the course of the last month. Patient reports she has had worsening headache since Friday. Patient also reports she has had worsening cough congestion and with hemoptysis. Patient denies any prior history of PE or DVT. Related Data Home Medications ?Medication ?Instructions ?Recorded ?Confirmed ?Last Taken ?Type omeprazole 20 mg capsule,delayed 20 mg PO BID 02/10/21 01/03/25 11/28/21 History release quetiapine 100 mg tablet 100 mg PO DAILY 02/10/21 01/03/25 11/28/21 History quetiapine 50 mg tablet 50 mg PO DAILY 02/10/21 01/03/25 11/28/21 History calcium citrate 600 mg PO BID 02/13/21 01/03/25 11/28/21 History cholecalciferol (vitamin D3) 125 125 mcg PO DAILY 02/13/21 01/03/25 11/28/21 History mcg (5,000 unit) capsule carvedilol 6.25 mg tablet 6.25 mg PO BID 05/17/21 01/03/25 11/29/21 History buspirone 10 mg tablet 10 mg PO TID 06/10/21 01/03/25 11/29/21 History gabapentin 800 mg tablet 800 mg PO QID 11/27/21 01/03/25 11/29/21 History hydroxyzine HCl 50 mg tablet 50 mg PO QID 11/27/21 01/03/25 11/29/21 History bupropion HCl 300 mg 24 hr tablet, 300 mg PO DAILY 12/15/24 01/03/25 Unknown History extended release cyclobenzaprine 10 mg tablet 5 mg PO Q12H 12/15/24 01/03/25 Unknown History levothyroxine 75 mcg tablet 75 mcg PO DAILY 12/15/24 01/03/25 Unknown History (Synthroid) meloxicam 7.5 mg tablet 7.5 mg PO .QOD 12/15/24 01/03/25 Unknown History multivitamin-ferrous 1 tablet PO DAILY 12/15/24 01/03/25 Unknown History fumarate-folic acid 18 mg-400 mcg tablet (Centrum) Allergies Allergy/AdvReac Type Severity Reaction Status Date / Time clindamycin Allergy Severe Itching Verified 05/26/25 16:32 hydromorphone (From Dilaudid) Allergy Severe Itching Verified 05/26/25 16:32 morphine Allergy Severe Itching Verified 05/26/25 16:32 tramadol AdvReac Severe Palpitation Verified 05/26/25 16:32 s Review of Systems Review of Systems: All systems reviewed & are unremarkable except as noted in HPI and below PMFSH Past Medical History Medical History (Updated 05/26/25 @ 18:50 by Iban Mathias MD) Teeth decayed BMI greater than 40 Sprain of left foot Degenerative arthritis of left knee Achilles tendinitis, left leg Fracture of distal end of left fibula Patellofemoral arthralgia of both knees Peripheral neuropathy Metatarsalgia, left foot Encounter for postoperative care Cough Left foot pain Metatarsal bone fracture Dermatillomania Arthritis Wears glasses Weight gain History of MRSA infection Depression Anxiety Anemia GERD (gastroesophageal reflux disease) Hypertension Surgical History Surgical History History of bunionectomy History of melanoma excision History of breast lift H/O lumbosacral spine surgery H/O gastric bypass History of hip surgery Hx of cholecystectomy Family History Family History Other Arthritis Depression Diabetes mellitus Esophageal cancer Heart disease High cholesterol Hypertension Neuropathy Social History Social History Smoking status: Never smoker Alcohol intake: current Alcohol use details: 2/MONTH Substance use: never Substance use type: does not use Living arrangements: alone Gender identity (if verbalized by the patient): Female Sexual Orientation (if Verbalized by the Patient): Straight or Heterosexual Spiritual care concerns: No Exam Narrative: APPEARANCE: Uncomfortable. HEAD: normocephalic, atraumatic. EYES: PERRLA/EOMI, conjunctivae clear. NOSE: Normal no drainage EARS:TMS clear with good light reflex. THROAT: Pharynx clear, no exudate. Mouth: Extensive dental decay and multiple tooth extractions NECK: Supple. No adenopathy, no masses. RESPIRATORY: Decreased lung sounds bilaterally, no significant wheeze CARDIOVASCULAR: Regular rate and rhythm without murmurs rubs or gallops. ABDOMINAL: Soft, nontender, nondistended, normal bowel sounds MUSCULOSKELETAL: Moves all extremities. Strength/ROM intact, No edema, No calf tenderness. NEURO: Alert. Cranial nerves II through XII intact. Good gait. Good coordination SKIN: Warm, dry. Normal Color . Course Vital Signs Vital signs: Vital Signs Temperature 98.6 F 05/26/25 15:02 Pulse Rate 105 H 05/26/25 15:02 Respiratory Rate 22 H 05/26/25 15:02 Blood Pressure 122/68 05/26/25 15:02 Pulse Oximetry 93 05/26/25 15:02 Oxygen Delivery Room Air 05/26/25 15:02 Temperature 98.6 F 05/26/25 15:02 Pulse Rate 105 H 05/26/25 15:02 Respiratory Rate 22 H 05/26/25 15:02 Blood Pressure 122/68 05/26/25 15:02 Pulse Oximetry 93 05/26/25 15:02 Oxygen Delivery Room Air 05/26/25 15:02 Medical Decision Making [facility] Narrative Medical decision making narrative: [age] old female presents emergency department for evaluation for headache, dental pain cough congestion and hemoptysis. Patient was initially treated with Toradol, lactated Ringer's, Compazine and Benadryl patient states her headache did feel improved. Patient was provided additional medication for dental pain control, Arnold. Chest x-ray was concerning for pneumonia and patient was initially started on p.o. azithromycin and Augmentin. Patient was found to have a new O2 requirement and had an oxygenation of 84% on room air. Patient had a CT scan to evaluate for pulmonary embolism due to the hemoptysis. This was negative for PE but does confirm pneumonia that is worse on the right than left. Discussed with hospitalist patient was accepted for admission. Patient will be switched to IV Rocephin and a Zithromax. Cultures were ordered. Patient family updated the results of the workup and plan for admission. All questions concerns were addressed patient was well-appearing at time of admission. [facility]. Differential Diagnosis Differential Diagnosis: Dental abscess, migraine, pulmonary embolism, pneumonia, COVID, RSV, influenza, headache, box Vital Signs Vital Signs: Vital Signs Temperature 98.6 F 05/26/25 15:02 Pulse Rate 105 H 05/26/25 15:02 Respiratory Rate 22 H 05/26/25 15:02 Blood Pressure 122/68 05/26/25 15:02 Pulse Oximetry 93 05/26/25 15:02 Oxygen Delivery Room Air 05/26/25 15:02 Temperature 98.6 F 05/26/25 15:02 Pulse Rate 105 H 05/26/25 15:02 Respiratory Rate 22 H 05/26/25 15:02 Blood Pressure 122/68 05/26/25 15:02 Pulse Oximetry 93 05/26/25 15:02 Oxygen Delivery Room Air 05/26/25 15:02 Lab Data Lab results reviewed: Yes I reviewed the patient's lab results. 05/26/25 16:31 05/26/25 16:31 Labs: Lab Results 05/26/25 05/26/25 Range/Units 16:31 16:45 WBC 14.3 H (4.5-10.0) K/mm3 RBC 3.91 L (4.2-5.4) M/mm3 Hgb 12.7 (12.0-15.0) g/dL Hct 38.5 (37.0-47.0) % MCV 98.5 (80-100) fl MCH 32.5 (26-34) pg MCHC 33.0 (32-36) g/dl RDW 14.7 H (11.5-14.5) % Plt Count 207 (150-375) k/mm3 MPV 9.5 (7.4-10.4) fl Immature Gran % (Auto) Not Reportable Neut % (Auto) Not Reportable Lymph % (Auto) Not Reportable Burt % (Auto) Not Reportable Eos % (Auto) Not Reportable Baso % (Auto) Not Reportable Lymph # (Auto) Not Reportable Burt # (Auto) Not Reportable Eos # (Auto) Not Reportable Baso # (Auto) Not Reportable Abs Immat Gran (auto) Not Reportable Absolute Neuts (auto) Not Reportable Absolute Nucleated RBC Not Reportable Total Counted 100 Neutrophils % (Manual) 84 H (46-73) % Band Neutrophils % 5 (0-6) % Lymphocytes % (Manual) 8 L (18-44) % Monocytes % (Manual) 3 (3-9) % Nucleated RBC % Not Reportable Abs Neuts (Manual) 12.72 H (1.3-6.7) K/mm3 Abs Lymphs (Manual) 1.14 (1.1-4.5) K/mm3 Abs Monocytes (Manual) 0.42 (0.1-0.90) K/mm3 Platelet Estimate Adequate (Adequate) Schistocytes None seen Sodium 132 L (137-145) mmol/L Potassium 4.0 (3.4-5.0) mmol/L Chloride 100 (98-107) mmol/L Carbon Dioxide 28 (22-30) mmol/L Anion Gap 4 (4-12) mmol/L BUN 19 H (7-17) mg/dL Creatinine 0.67 L (0.7-1.0) mg/dL Estim Creat Clear Calc 93 ml/min Estimated GFR > 60 (59 - ) Glucose 104 (65-110) mg/dL Calcium 9.2 (8.4-10.2) mg/dL Total Bilirubin 1.3 (0.2-1.3) mg/dL AST 185 H (14-36) U/L ALT 243 H (6-35) U/L Alkaline Phosphatase 174 H (38-126) U/L Total Protein 6.4 (6.3-8.2) g/dL Albumin 3.5 (3.5-5.1) g/dL Influenza A (RT-PCR) Negative (Negative) Influenza B (RT-PCR) Negative (Negative) RSV (RT-PCR) Negative (Negative) SARS-CoV-2 RNA (RT-PCR) Negative (Negative) Imaging Data Radiologist's impression: Impressions Chest X-Ray 05/26/25 16:55 Impression: Bilateral pneumonia Chest CTA 05/26/25 18:29 IMPRESSION: 1. Extensive bilateral airspace disease, compatible with pneumonia, right greater than left. 2: Enlarged mediastinal and right hilar lymph nodes, likely reactive. Discharge Plan Discharge Clinical Impression: Headache, Hypoxia, Pain, dental, Bilateral pneumonia Patient Disposition: Still a Patient Condition: Serious Patient Language: Polish Prescriptions: No Action bupropion HCl 300 mg tablet extended release 24 hr 300 mg PO DAILY levothyroxine [Synthroid] 75 mcg tablet 75 mcg PO DAILY cyclobenzaprine 10 mg tablet 5 mg PO Q12H meloxicam 7.5 mg tablet 7.5 mg PO .QOD Centrum 18-400 mg-mcg tablet 1 tablet PO DAILY quetiapine 100 mg tablet 100 mg PO DAILY omeprazole 20 mg capsule,delayed release(DR/EC) 20 mg PO BID quetiapine 50 mg tablet 50 mg PO DAILY buspirone 10 mg Tablet 10 mg PO TID cholecalciferol (vitamin D3) 125 mcg (5,000 unit) capsule 125 mcg PO DAILY calcium citrate 200 mg (950 mg) tablet 600 mg PO BID hydroxyzine HCl 50 mg Tablet 50 mg PO QID gabapentin 800 mg Tablet 800 mg PO QID carvedilol 6.25 mg tablet 6.25 mg PO BID Follow-up/Referrals: Gabino,MD Adis [Primary Care Provider, Unknown]
--- NOTE | 2025-05-26 16:23 | PC.NURSE ---
Patient stated she is having chest congestion and coughing blood. RN notified MD. Patient sating 82% in bed, RN placed 2L NC on patient. MD notified.
[2025-05-26] MEDS: LACTATED RINGERS 1,000 ML 999 ML IV CONT (16:31)
[2025-05-26] MEDS: KETOROLAC 15 MG/ML VIAL (*BKC) IV PUSH (16:32)
[2025-05-26] MEDS: PROCHLORPERAZINE EDISYLATE 10 MG/2 ML VIAL IV PUSH (16:32)
[2025-05-26 16:47] LABS: Hematocrit 38.5 % (37.0-47.0); Hemoglobin 12.7 g/dL (12.0-15.0); Mean Corpuscular HGB Conc 33.0 g/dl (32-36); Mean Corpuscular Hemoglobin 32.5 pg (26-34); Mean Corpuscular Volume 98.5 fl (80-100); Platelet Count Result 207 k/mm3 (150-375); Red Blood Count 3.91 M/mm3 (4.2-5.4); White Blood Count 14.3 K/mm3 (4.5-10.0)
[2025-05-26 16:52] LABS: Alanine Aminotransferase 243 U/L (6-35); Albumin Level 3.5 g/dL (3.5-5.1); Alkaline Phosphatase 174 U/L (38-126); Anion Gap 4 mmol/L (4-12); Aspartate Amino Transferase 185 U/L (14-36); Bilirubin,Total 1.3 mg/dL (0.2-1.3); Blood Urea Nitrogen 19 mg/dL (7-17); Calcium 9.2 mg/dL (8.4-10.2); Carbon Dioxide 28 mmol/L (22-30); Chloride 100 mmol/L (98-107); Estimated CRCL calculation 93 ml/min; Estimated Glomerular Filt Rate > 60; Glucose 104 mg/dL (65-110); Potassium 4.0 mmol/L (3.4-5.0); Sodium 132 mmol/L (137-145); Total Protein 6.4 g/dL (6.3-8.2)
--- NOTE | 2025-05-26 17:00 | PC.NURSE ---
Patient sating 84% RA. RN notified MD. MD requested RN ambulate patient to check pulse ox. RN ambulated patient 20 feet, patient's saturations 82% on RA. Patient brought back to bed and RN placed 2L NC. Patient now sating 91% on 2L.
[2025-05-26 17:12] LABS: Lymphocytes Absolute Manual 1.14 K/mm3 (1.1-4.5); Lymphocytes Percent Manual 8 % (18-44); Monocytes Absolute Manual 0.42 K/mm3 (0.1-0.90); Monocytes Percent Manual 3 % (3-9); Total Cells Counted 100
[2025-05-26 17:13] LABS: Band Neutrophils Percent 5 % (0-6); Neutrophils Absolute Manual 12.72 K/mm3 (1.3-6.7); Neutrophils Percent Manual 84 % (46-73); Schistocytes None Seen
--- OUTSIDE RECORDS SUMMARY | 2025-05-26 17:20 | XMS_ITS | Encounter Summary ---
Author Organization [facility] Address [address] [facility] [place] [address] Phone Care Team Providers Care Tour Manager Name Role Phone Adis Lloyd MD Primary Care Provider [phone] Corey Mortensen DO Unavailable [phone] Adis Lloyd MD Primary Care Provider [phone] Encounter Details Date Type Department Care Team (Latest Contact Info) Description 11/16/2012 Orders Only [facility] Scanning, Provider Social History Tobacco Use Types Packs/Day Years Used Date Smoking Tobacco: Never Assessed Comments Unknown Sex and Gender Information Value Date Recorded Sex Assigned at Not on file Legal Sex Female 9:40 PM [employer] Gender Identity Female 05/07/2022 3:54 PM CDT [...] on filedocumented in this encounter Care Teams Tour Manager Relationship Specialty Start Date End Date Adis Lloyd MD [address] [place] [address] PCP - General Bus Assistant 09/08/18 11/08/19 Adis Lloyd MD [address] [facility] [place] [address] PCP - General 11/09/19 Corey Mortensen DO [address] [place] [id number] Medical Oncologist/Hematologis t Hematology and Oncology 09/09/18 documented as of this encounter
--- OUTSIDE RECORDS SUMMARY | 2025-05-26 17:20 | XMS_ITS ---
Author Organization [facility] Address [facility] [place] [address] Care Team Providers Care Equities Trader Name Role Phone Corey Mortensen DO Unavailable [phone] Adis Lloyd MD Primary Care Provider [phone] Active Problems Problem Noted Date Diagnosed Date [...]
--- OUTSIDE RECORDS SUMMARY | 2025-05-26 17:20 | XMS_ITS | Clinical Summary ---
Author Organization [facility] Address [address] [place] [address] Phone Care Team Providers Care Creche Attendant Name Role Phone Adis Llody MD Primary Care Provider [phone] Allergies Active Allergy Reactions Criticality Noted Date [...] Comments Blood Pressure 123/84 07/24/2020 1:52 PM COURTESY DRIVER Pulse 93 07/24/2020 1:52 PM COURTESY DRIVER Temperature 36.1 C (97 F) 07/24/2020 1:38 PM COURTESY DRIVER Respiratory Rate 16 07/24/2020 1:52 PM COURTESY DRIVER Oxygen Saturation 99% 07/24/2020 1:52 PM COURTESY DRIVER Inhaled Oxygen Concentration - - Weight 131.1 kg (289 lb) 07/24/2020 12:17 PM COURTESY DRIVER Height 170.2 cm (5' 7) 07/24/2020 12:17 PM COURTESY DRIVER Body Mass Index 45.26 07/24/2020 12:17 PM COURTESY DRIVER Plan of Treatment Health Maintenance Due Date [...] Comments COLONOSCOPY REPORT 07/24/2020 1: 38 PM COURTESY DRIVER from Last 3 Months or Most Recently Relevant to Health Maintenance Results * COLONOSCOPY REPORT (07/24/2020 1:38 PM COURTESY DRIVER) Narrative Procedure Note Brady Orozco MD - 07/24/2020 1:37 PM CST [facility] Endoscopy Patient Name: Monica Rolon Procedure Date: [...] signed electronically. Number of Addenda: [address]; [place] [address] Brady Orozco MD GI PROCEDURE ORDERABLES Angela l Result from Last 3 Months or Most Recently Relevant to Health Maintenance Insurance MEDICAID [facility] [id number] Advance Directives For more information, please contact: [phone] * Full Code (Latest Code Status on File) Date Activated Date Inactivated Comments 07/24/2020 12:16 PM 07/24/2020 5:03 PM Care Teams Creche Attendant Relationship Specialty Start Date End Date Adis Lloyd MD PCP - General Student in an Organized Health Care Education/Training Program 06/20/20
--- OUTSIDE RECORDS SUMMARY | 2025-05-26 17:20 | XMS_ITS | Clinical Summary ---
Author Organization [facility] Address [address] [place] [address] Care Team Providers Care Window Shade Installer Name Role Phone Corey Mortensen DO Unavailable [phone] Adis Lloyd MD Primary Care Provider Allergies Active Allergy Reactions Criticality Noted Date Comments Black Cohosh Itching High 11/13/2020 Clindamycin Unknown 03/27/2020 Fentanyl Itching,Unknown Low 06/21/2020 Morphine Itching High 08/18/2023 Tramadol Palpitations Low 01/26/2021 Medications gabapentin (NEURONTIN) 800 mg tablet TK 1 T PO TID UTD 2 8 Active amitriptyline (ELAVIL) 150 mg tablet Take 1 tablet (150 mg total) by mouth nightly Active calcium carbonate-vitam in D3 (CALTRATE 600 + D) 1500 mg (600 mg elemental) -400 units per tablet Take 1 tablet by mouth daily Active QUEtiapine (SEROquel) 100 mg tablet Take 1.5 tablets (150 mg total) by mouth nightly 2 9 Active allopurinol (ZYLOPRIM) 100 mg tablet nightly 3 9 Active omeprazole (PriLOSEC) 20 mg capsule Take 1 capsule (20 mg total) by mouth daily 2 Active multivitamin-ir on-folic acid 18-400 mg-mcg tablet Take 1 tablet [...] 1 tablet (75 mcg total) by mouth electronics assembler and tester before breakfast Active buPROPion XL (WELLBUTRIN XL) [...] 3 (three) times a day 4 Active diazePAM (VALIUM) 5 mg tablet Take 1 tablet (5 mg total) by mouth daily as needed 4 Active atomoxetine (STRATTERA) 80 mg capsule 4 Active cyclobenzaprine (FLEXERIL) 5 mg tablet Take 1 tablet (5 mg total) by mouth 3 (three) times a day as needed for muscle spasms 30 tablet 4 Active Additional Information Patient not taking.Reported on 04/26/2025 hydrOXYzine (ATARAX) 50 mg tablet Take 1 tablet (50 mg total) by mouth 4 (four) times a day 360 tablet 3 5 12/31/19 26 Active Additional Information Patient not taking.Reported on 04/26/2025 dupilumab (DUPIXENT) 300 mg/2 mL pen injectorIndicat ions:Atopic Dermatitis Inject 2 SQ on day 1, then inject 1 SQ on day 15 and day 29. Loading dose 8 mL 5 Active dupilumab (DUPIXENT) 300 mg/2 mL pen injectorIndicat ions:Atopic Dermatitis Inject 2 mL (300 mg total) under the skin every 14 (fourteen) days Maintenance dose 4 mL 11 5 Active triamcinolone (KENALOG) 0.1 % creamIndication s:Prurigo nodularis Apply topically 2 (two) times a day as needed for rash Apply up to twice daily as needed for itch/rash 453.6 g 11 5 Active Active Problems Problem Noted Date Diagnosed [...] Encounters Date Type Department Care Team Description 05/11/2025 Telephone [facility] [place] [address] Clarice Solorzano 04/26/2025 11:35 AM CDT - 04/26/2025 11:59 PM CDT Hospital Encounter [facility] [address] [place] [address] Ezra Jiang NP Radiculopathy, lumbosacral region (Primary Dx) Discharge Disposition: Discharge to home or self care 03/10/2025 Telephone [facility] Medicine Dermatology [address] [place] [address] Outpatient Health [address] [place] [address] [phone] Glenn Desai RPh Rx counseling 03/10/2025 Telephone [facility] Dermatology [address] [place] [address] Outpatient Health [address] [place] [address] [phone] Glenn Desai RPh Medication [place] Approval 03/07/2025 3:30 PM CDT Office Visit [facility] Dermatology [address] [place] [address] Outpatient Health [address] [place] [address] [phone] Sasha Mcleod MD Prurigo nodularis (Primary Dx); Other pruritus from Last 3 Months Immunizations Immunization Administration [...] drink = 0.6 oz pur e alcohol) [facility] Utilities Answer Date Recorded In the past 12 months has e Sticky, gas, oil, or water [employer] threatened to shut off services in your home? No 04/21/2024 Social Connection and Isolation Panel Answer Date Recorded In a typical week, how many times do you talk on the phone with family, friends, or neighbors? More than three times a week 04/21/2024 How often do you get togethe r with friends or relatives? Once a week 04/21/2024 How often do you attend chur ch or adventism services? Never 04/21/2024 Do you belong to any clubs o r organizations such as jain groups, unions, fraternal or athletic groups, or [...] any time in the past 12 m [facility], were you homeless or living in a usp (including now)? No 04/21/2024 Personal Safety Answer Date Recorded Have you ever been in or are you currently in a harmful physical or emotional relationship or is someone making you feel afraid or unsafe? Denies 08/04/2024 Comments No Sex and Gender Information Value Date Recorded Sex Assigned at Not on file Legal Sex Female 9:40 PM PATTERN MECHANIC Gender Identity Female 05/07/2022 3:54 PM CDT Sexual Orientation Straight 05/07/2022 3: 54 PM CDT Occupation Industry Job Start Date Job End Date Disabled Not on file Not on file Not on file Obstetrics History Last Filed Vital Signs Vital Sign Reading Time Taken Comments Blood Pressure 121/81 04/26/2025 11:55 AM CDT Pulse 91 04/26/2025 11:55 AM CDT Temperature 36.6 C (97.9 F) 02/03/2025 1:30 PM CDT Respiratory Rate 18 04/26/2025 11:5 5 AM CDT Oxygen Saturation 95% 04/26/2025 11: 55 AM CDT Inhaled Oxygen Concentration - - Weight [...] 1979 Zoster Vaccine (1 of 2) 2011 Breast Cancer Screening-Mammogram 09/30/2024 09/30/2023, 05/08/2022, 04/25/2021, Additional history exists Covid-19 Vaccine ( season) 2025 02/07/2021, 01/15/2021 Influenza Vaccine (#1) 2025 , 08/08/2022, 05/31/2021, Additional history exists DTaP/Tdap/Td Vaccine (4 - Td or Tdap) 06/22/2034 06/22/2024, 06/01/2019, 11/02/2009 Hepatitis B Screening Completed 09/02/2018 , 07/20/2018, 09/23/2017, Additional history exists Pneumococcal vaccine <65 Aged Out 02/22/2019 No longer eligible based on patient's age to complete this topic Medical Devices Implanted Type Area Buffer Nickel Device Identifier Shelf Expiration Date Model / Serial / Lot [employer]onic Inc Graft Bone Filler Jar Traill 6cc Putty [id number] - [id number] - [id number] Implanted:Qty: 1 on 04/20/2024 by Olaf Pascual MD at [facility] N/A: Spine Cervical Med[employer] Inc 01/09/2026 [id number] / [id number] / Med[employer]onic Inc Cage Spn Med 6d Acif Endoskeleton Tcs Nanolock [id number]-[id number] - [id number] Implanted:Qty: 1 on 04/20/2024 by Olaf Pascual MD at [facility] N/A: Spine Cervical [employer] Inc 05/22/2028 [id number] / / [id number] Med[employer] Inc Cage Spn Med 6d Acif Endoskeleton Tcs Nanolock [id number] 9002-6931-[id number] - [id number] Implanted:Qty: 1 on 04/20/2024 by Olaf Pascual MD at [facility] N/A: Spine Cervical [employer] Inc 03/27/2028 [id number] / / [id number] Med[employer]onic Inc Zevo 37mm 2 Level Spine Cervical Anterior Plate Bone Titanium [id number] - [id number] Implanted:Qty: 1 on 04/20/2024 by Olaf Pascual MD at [facility] N/A: Spine Cervical [employer] Inc [id number] / / [employer] Inc Zevo 3.5mm 17mm Variable Self Drill Spine Cervical Anterior Screw [id number] - [id number] Implanted:Qty: 2 on 04/20/2024 by Olaf Pascual MD at [facility] N/A: Spine Cervical [employer] Inc [id number] / / [employer] Inc Zevo 3.5mm 15mm Variable Self Drill Spine Cervical Anterior Screw [id number] - [id number] Implanted:Qty: 2 on 04/20/2024 by Olaf Pascual MD at [facility] N/A: Spine Cervical [employer] Inc [id number] / / [employer] Inc Screw Spinal Anterior Cervical Self Drilling Solid Zevo 4.0x17mm Titanium [id number] - [id number] Implanted:Qty: 2 on 04/20/2024 by Olaf Pascual MD at [facility] N/A: Spine Cervical [employer] Inc [id number] / / [employer] Generator Pulse Inceptiv Sys Stm Electrcl Analges Implant [id number] - [id number] - [id number] Implanted:Qty: 1 on 08/04/2024 by Olaf Pascual MD at [facility] Spine Thoracic [employer] Inc 07/15/2025 [id number] / [id number] / Med[employer] Inc Specify Surescan 65cm 3 Column 16 Electrode Lead Nerve Stimulator [id number] - [id number] Implanted:Qty: 1 on 08/04/2024 by Olaf Pascual MD at [facility] Spine Thoracic [employer] [id number] / / [id number] Explanted Type Area Buffer Nickel Device Identifier Shelf Expiration Date Model / Serial / Lot Med[employer]onic Inc Vectris 5mm 60cm 1x8 Electrode Mri Lead Neurostimulator [id number] - [id number] Explanted:Qty: 1 on 10/28/2023 at [facility] N/A: Thoracic- Lumbar Spine [employer] Inc 09/30/2027 [id number] / / [id number] Procedures Procedure Name Priority Date/Time Associated Diagnosis [...] signed by: Hafsa Tripathi M.D. Shalini Kruger SPONGE PRESS OPERATOR IMG MAMMO PROCEDURES Fin al Result from Last 3 Months or Most Recently Relevant to Health Maintenance Insurance UHC MEDICARE ADVANTAGE [facility] Address: [facility] [address] [place] [address] [facility] Address: [address] [address] [place] [address] IDPA IDPA [facility] MEDICARE ADVANTAGE [facility] Address: [address] [address] [place] [address] Advance Directives For more information, please contact: [phone] * Full Code (Latest Code Status on File) Date Activated Date Inactivated Comments 04/20/2024 1:08 PM 04/21/2024 7:29 PM Care Teams Window Shade Installer Relationship Specialty Start Date End Date Adis Lloyd MD [address] [place] [address] [place] [address] PCP - General 11/09/19 Corey Mortensen DO [address] [place] [address] Medical Oncologist/Hematologis t Hematology and Oncology 1/9/19
--- OUTSIDE RECORDS SUMMARY | 2025-05-26 17:21 | XMS_ITS | Data Portability ---
Author Organization [place] - [facility] [employer], Main Office Address [address] [place] [address] Care Team Providers Care Pump Operator Name Role Phone ADIS LLOYD Primary Care Provider ADIS LLOYD Referring Provider Assessment Encounter Date [...] Cont f/u with Wt loss clinic at [facility] as per schedule. Cont f/u with Salvager Helper at [facility] as per schedule. Cont f/u with Derm at [facility] as per schedule. Cont f/u with Wound clinic at [facility] as per schedule. Cont f/u with Psych & counsellor at [facility] as per schedule. Cont f/u with Cardio at [facility] as per schedule. Cont f/u with Spine surgeon at [facility] as per schedule. Cont f/u with Pain clinic at [facility] as per schedule. Cont f/u with Ortho at [place] as per schedule. Cont f/u with Hemat as per schedule. Cont f/u with Gyne as per schedule. Cont f/u with Ophtho at [facility] as per schedule. Cont f/u with GI as per schedule. Pt has seen Psych & counsellor at [facility] in the past, but doesn't want to f/u with them. Pt has seen Wt loss clinic at [facility]; but doesn't want to f/u with them. [...] in 3-4 weeks. Annual labs in 04/24. [email or web address] Not available 05/11/2024 14:43:24 06/22/2024 06/22/2024 64 [...] Cont f/u with Wt loss clinic at [facility] as per schedule. Cont f/u with Salvager Helper at [facility] as per schedule. Cont f/u with Derm at [facility] as per schedule. Cont f/u with Wound clinic at [facility] as per schedule. Cont f/u with Psych & counsellor at [facility] as per schedule. Cont f/u with Cardio at [facility] as per schedule. Cont f/u with Spine surgeon at [facility] as per schedule. Cont f/u with Pain clinic at [facility] as per schedule. Cont f/u with Ortho at [place] as per schedule. Cont f/u with Hemat as per schedule. Cont f/u with Gyne as per schedule. Cont f/u with Ophtho at [facility] as per schedule. Cont f/u with GI as per schedule. Pt has seen Psych & counsellor at [facility] in the past, but doesn't want to f/u with them. Pt has seen Wt loss clinic at [facility]; but doesn't want to f/u with them. [...] Cont f/u with Wt loss clinic at [facility] as per schedule. Cont f/u with Salvager Helper at [facility] as per schedule. Cont f/u with Derm at [facility] as per schedule. Cont f/u with Wound clinic at [facility] as per schedule. Cont f/u with Psych & counsellor at [facility] as per schedule. Cont f/u with Cardio at [facility] as per schedule. Cont f/u with Spine surgeon at [facility] as per schedule. Cont f/u with Pain clinic at [facility] as per schedule. Cont f/u with Ortho at [place] as per schedule. Cont f/u with Hemat as per schedule. Cont f/u with Gyne as per schedule. Cont f/u with Ophtho at [facility] as per schedule. Cont f/u with GI as per schedule. Pt has seen Psych & counsellor at [facility] in the past, but doesn't want to f/u with them. Pt has seen Wt loss clinic at [facility]; but doesn't want to f/u with them. [...] on next visit. Annual labs in 06/25. [email or web address] Not available 07/08/2024 12:38:41 10/12/2024 10/12/2024 64 [...] verbalized understanding it. F/u with Neuro at [facility] as per schedule. Cont f/u with Wt loss clinic at [facility] as per schedule. Cont f/u with Salvager Helper at [facility] as per schedule. Cont f/u with Derm at [facility] as per schedule. Cont f/u with Wound clinic at [facility] as per schedule. Cont f/u with Psych & counsellor at [facility] as per schedule. Cont f/u with Cardio at [facility] as per schedule. Cont f/u with Spine surgeon at [facility] as per schedule. Cont f/u with Pain clinic at [facility] as per schedule. Cont f/u with Ortho at [facility] as per schedule. Cont f/u with Hemat as per schedule. Cont f/u with Gyne as per schedule. Cont f/u with Ophtho at [facility] as per schedule. Cont f/u with GI as per schedule. Pt has seen Psych & counsellor at [facility] in the past, but doesn't want to f/u with them. Pt has seen Wt loss clinic at [facility]; but doesn't want to f/u with them. [...] in 3-4 months. Annual labs in 06/25. [email or web address] Not available 10/12/2024 12:37:44 01/12/2025 01/12/2025 64 [...] understanding it. Cont f/u with Neuro at [facility] as per schedule. Cont f/u with Wt loss clinic at [facility] as per schedule. Cont f/u with Salvager Helper at [facility] as per schedule. Cont f/u with Derm at [facility] as per schedule. Cont f/u with Wound clinic at [facility] as per schedule. Cont f/u with Psych & counsellor at [facility] as per schedule. Cont f/u with Cardio at [facility] as per schedule. Cont f/u with Spine surgeon at [facility] as per schedule. Cont f/u with Pain clinic at [facility] as per schedule. Cont f/u with Ortho at [facility] as per schedule. Cont f/u with Hemat as per schedule. Cont f/u with Gyne as per schedule. Cont f/u with Ophtho at [facility] as per schedule. Cont f/u with GI as per schedule. Pt has seen Psych & counsellor at [facility] in the past, but doesn't want to f/u with them. Pt has seen Wt loss clinic at [facility]; but doesn't want to f/u with them. [...] in 5 months. Annual labs in 06/25. Not available 01/12/2025 14:11:54 Plan of Treatment Reminders Order Date Submit Date Provider Last Modified By Organization Details Last Modified Time Details Appointments Physical/ Annual Wellness 30 2024 10:00A Nelly Lloyd MD Not available Not available Not available Lab vitamin B12 + folate, serum or blood 2023 024 [email or web address] [facility], [address] [place], [address], 07/01/2024 11:29:00 magnesium , serum or plasma [facility] [address] [place], [address], 06/22/2024 19:25:32 vitamin D, 25-hydrox y, total, serum [address]), [address] [place], [address], 07/01/2024 11:29:36 uric acid, serum or plasma 2023 [facility]), [address] [place], [address], 06/22/2024 19:25:26 HbA1c (hemoglob in A1c), blood [address]), [address] [place], [address], 07/01/2024 11:29:24 urinalysi s complete, reflex culture [address]), [address] [place], [address], 08/12/2024 14:40:57 CBC w/ auto diff 2023 [facility] [address] [place], [address], 06/22/2024 19:30:17 CMP, serum or plasma 2023 024 [facility] [address] [place], [address], 06/22/2024 19:25:22 TSH, serum, reflex free T4 [email or web address] [place] [address]), [address] [place], [address], 07/22/2024 10:33:18 lipid panel, serum 2023 024 [facility]), [address] [place], [address], 06/22/2024 19:25:30 Referral None recorded. Procedures None recorded. Surgeries None recorded. Imaging MAMMO, screening , bilateral [address]), [address] [place], [address], 10/13/2024 09:03:48 US, breast, bilateral - Please call patient to schedule. [address]), [address] [place], [address], 12/15/2024 15:44:23 MAMMO, diagnosti c, digital, bilateral [address]), [address] [place] [address], [address], 10/13/2024 09:04:03 US, breast, unilatera l - To be done w/ Dx Mammogram 2023 024 [facility]), [address] [place] [address], [address], 05/25/2024 11:09:23 MAMMO, diagnosti c, digital, unilatera l - Please call pt to schedule for Left side Dx Mammogram 2023 [email or web address] [place] [address]), [address] [place], [address], 06/10/2024 09:18:15 Medication Orders cyclobenz aprine 10 mg tablet 2024 ELLEN [facility], [facility] [address] [facility], [address], [place], [address], 01/12/2025 14:12:45 triamcino lone acetonide 0.1 % topical cream 2024 025 ELLEN [facility], [address] [facility], [address], [place], [address], 01/12/2025 14:12:44 allopurin ol 100 mg tablet 2024 025 ELLEN [facility], [address] [facility], [address], [place], [address], 01/12/2025 14:12:44 amitripty line 150 mg tablet 2024 025 ELLEN [facility], [address] [facility], [address], [facility] [place], [address], 01/12/2025 14:12:48 gabapenti n 800 mg tablet 2024 025 ELLEN [facility] [place], [address] [facility], [facility] [address], [facility] [place], [address], 01/12/2025 14:12:48 omeprazol e 20 mg capsule,d elayed release 2024 025 ELLEN [facility], [address] [facility], [address], [place], [address], 01/12/2025 14:12:45 Synthroid 75 mcg tablet 2024 025 ELLEN [facility], [address] [facility], [address], [place], [address], 01/12/2025 14:12:46 meloxicam 7.5 mg tablet 2024 025 ELLEN [facility], [address] [facility], [address], [place], [address], 01/12/2025 14:12:47 cyclobenz aprine 10 mg tablet 2024 025 ELLEN [facility], [address] [facility], [address], [place], [address], 10/12/2024 12:20:31 triamcino lone acetonide 0.1 % topical cream 2024 025 ELLEN [facility], [address] [facility], [address], [place], [address], 10/12/2024 12:22:33 allopurin ol 100 mg tablet 2024 025 ELLEN [facility], [address] [facility], [address], [place], [address], 10/12/2024 12:20:29 amitripty line 150 mg tablet 2024 025 ELLEN [facility], [address] [facility], [address], [place], [address], 10/12/2024 12:20:34 gabapenti n 800 mg tablet 2024 025 ELLEN [facility], [address] [facility], [address], [place], [address], 10/12/2024 12:20:35 omeprazol e 20 mg capsule,d elayed release 2024 025 ELLEN [facility], [address] [facility], [address], [place], [address], 10/12/2024 12:20:33 Synthroid 75 mcg tablet 2024 025 ELLEN [facility], [address] [facility], [address], [place], [address], 10/12/2024 12:20:38 meloxicam 7.5 mg tablet 2024 025 ELLEN [facility], [address] [facility], [address], [place], [address], 10/12/2024 12:20:31 cyclobenz aprine 10 mg tablet 2023 ELLEN [facility], [address] [facility], [address], [place], [address], 07/08/2024 12:39:54 allopurin ol 100 mg tablet 2023 ELLEN [facility], [address] [facility], [facility] [address], [place], [address], 07/08/2024 12:39:57 amitripty line 150 mg tablet 2023 ELLEN [facility], [address] [place] [address], [facility] [address], [place], [address], 07/08/2024 12:39:54 Zepbound 2.5 mg/0.5 mL subcutane ous pen injector 2023 [email or web address] [facility], [address] [facility], [address], [place], [address], 10/12/2024 12:37:12 gabapenti n 800 mg tablet 2023 ELLEN [facility], [address] [facility], [address], [place], [address], 07/08/2024 12:39:55 omeprazol e 20 mg capsule,d elayed release 2023 ELLEN [facility], [address] [facility], [address], [place], [address], 07/08/2024 12:39:58 Synthroid 75 mcg tablet 2023 ELLEN [facility], [address] [facility], [address], [place], [address], 07/08/2024 12:39:59 meloxicam 7.5 mg tablet 2023 ELLEN [facility], [address] [facility], [facility] [address], [place], [address], 07/08/2024 12:39:56 cyclobenz aprine 10 mg tablet 2023 ELLEN [facility], [address] [facility], [facility] [address], [place], [address], 06/22/2024 12:44:18 allopurin ol 100 mg tablet 2023 ELLEN [facility], [address] [facility], [place], [address], 06/22/2024 12:44:15 amitripty line 150 mg tablet 2023 ELLEN [facility], [address] [facility], [facility], [address], 06/22/2024 12:44:19 meloxicam 7.5 mg tablet 2023 ELLEN [facility], [address] [facility], [facility] [address], [place], [address], 06/22/2024 12:44:21 gabapenti n 800 mg tablet 2023 ELLEN [facility], [address] [facility], [facility] [address], [place], [address], 06/22/2024 12:44:17 omeprazol e 20 mg capsule,d elayed release 2023 ELLEN [facility], [address] [facility], [facility], [address], 06/22/2024 12:44:15 Synthroid 75 mcg tablet 2023 ELLEN [facility], [address] [facility], [facility] [address], [place], [address], 06/22/2024 12:44:12 cyclobenz aprine 10 mg tablet 2023 024 ELLEN [facility], [address] [facility], [facility] [address], [place], [address], 05/11/2024 14:32:02 allopurin ol 100 mg tablet 2023 024 ELLEN [facility], [address] [place] [address], [facility] [address], [place], [address], 05/11/2024 14:31:51 amitripty line 150 mg tablet 2023 024 ELLEN [facility], [address] [place] [address], [facility] [address], [place], [address], 05/11/2024 14:31:53 Wegovy 0.25 mg/0.5 mL subcutane ous pen injector 2023 024 [email or web address] [facility], [address] [place] [address], [facility] [address], [place], [address], 10/12/2024 12:37:08 gabapenti n 800 mg tablet 2023 024 ELLEN [facility], [address] [facility], [facility], [place], [address], 05/11/2024 14:31:52 omeprazol e 20 mg capsule,d elayed release 2023 024 ELLEN [facility], [address] [place] [address], [facility], [place], [address], 05/11/2024 14:31:53 Synthroid 75 mcg tablet 2023 024 ELLEN [facility], [address] [facility], [facility] [address], [place], [address], 05/11/2024 14:32:01 meloxicam 7.5 mg tablet 2023 024 ELLEN [facility], [facility], [address], [place], [address], 05/11/2024 14:31:50 Patient TargetsNo targets recorded. Patient InstructionsNo instructions recorded. Reason for Referral None Reported. Results Created Date Observation Date Name Description Value Unit Range Abnormal Flag Note LastModifiedBy Organization Detail LastModifiedTime 06/22/2006/22/2024 TEST NOT PERFO RMED test not performed SEE COMMEN T UNABL E TO PERFO RM URINA LYSIS TESTI NG-NO SPECI MEN SENT TO THE LAB Not Available [facility] (Lab) [address] [place], [address], 06/22/2024 19:09:32 06/22/20 24 06/22/2024 COMPR EHENS ELY METAB OLIC PANEL sodium 139 mmol/ L 137-[address] [facility] (Lab) [address] [place], [address], 06/22/2024 19:25:22 06/22/20 24 06/22/2024 COMPR EHENS ELY METAB OLIC PANEL potassium 4.7 mmol/ L 3.5-5. [address] [facility] (Lab) [address] [place], [address], 06/22/2024 19:25:22 06/22/20 24 06/22/2024 COMPR EHENS ELY METAB OLIC PANEL chloride 106 mmol/ L 98-[address] [facility] (Lab) [address] [place], [address], 06/22/2024 19:25:22 06/22/20 24 06/22/2024 COMPR EHENS ELY METAB OLIC PANEL carbon dioxide 24 mmol/ L 22-[address] [facility] (Lab) [address] [place], [address], 06/22/2024 19:25:22 06/22/20 24 06/22/2024 COMPR EHENS ELY METAB OLIC PANEL anion gap 13.7 mmol/ L 14- low Not Available [facility] (Lab) [address] [place], [address], 06/22/2024 19:25:22 06/22/20 24 06/22/2024 COMPR EHENS ELY METAB OLIC PANEL glucose 93 mg/dL 70-[address] [facility] (Lab) [address] [place], [address], 06/22/2024 19:25:22 06/22/20 24 06/22/2024 COMPR EHENS ELY METAB OLIC PANEL BUN 13 mg/dL 8-[address] [facility] (Lab) [address] [place], [address], 06/22/2024 19:25:22 06/22/20 24 06/22/2024 COMPR EHENS ELY METAB OLIC PANEL creatinine 1.01 mg/dL 0.66-[address] [facility] (Lab) [address] [place], [address], 06/22/2024 19:25:22 06/22/20 24 06/22/2024 COMPR EHENS ELY METAB OLIC PANEL GFR 55 Refer ence Range : [place] GFR Healt hy Adult : >60 [...] calcu lator is avail able on the [facility] websi te: https ://ww w.kid karlee.o rg/pr ofess ional s/kdo qi/gf r_cal culat or Not Available [facility] (Lab) [address] [place], [address], 06/22/2024 19:25:22 06/22/20 24 06/22/2024 COMPR EHENS ELY METAB OLIC PANEL alkaline phosphatase 130 U/L 38-126 high Not Available [facility] (Lab) [address] [place], [address], 06/22/2024 19:25:22 06/22/20 24 06/22/2024 COMPR EHENS ELY METAB OLIC PANEL alanine aminotransfe rase 31 U/L 0-35 Not Available [facility] (Lab) [address] [place], [address], 06/22/2024 19:25:22 06/22/20 24 06/22/2024 COMPR EHENS ELY METAB OLIC PANEL aspartate aminotransfe rase 35 U/L 15-37 Not Available [facility] (Lab) [address] [place], [address], 06/22/2024 19:25:22 06/22/20 24 06/22/2024 COMPR EHENS ELY METAB OLIC PANEL bilirubin, total 0.50 mg/dL 0.20-[address] [facility] (Lab) [address] [place], [address], 06/22/2024 19:25:22 06/22/20 24 06/22/2024 COMPR EHENS ELY METAB OLIC PANEL calcium 10.1 mg/dL 8.4-[address] [facility] (Lab) [address] [place], [address], 06/22/2024 19:25:22 06/22/2006/22/2024 COMPR EHENS ELY METAB OLIC PANEL total protein 6.7 g/dL 6.3-8. [address] [facility] (Lab) [address] [place], [address], 06/22/2024 19:25:22 06/22/2006/22/2024 COMPR EHENS ELY METAB OLIC PANEL albumin 4.2 g/dL 3.0-4. 4 Not Available [facility] (Lab) [address] [place], [address], 06/22/2024 19:25:22 06/22/20 24 06/22/2024 COMPR EHENS ELY METAB OLIC PANEL globulin 2.5 g/dL 2.6-4. [address] [facility] (Lab) [address] [place], [address], 06/22/2024 19:25:22 06/22/2006/22/2024 COMPR EHENS ELY METAB OLIC PANEL A/G ratio 1.7 ratio 1.0-2. [address] [facility] (Lab) [address] [place], [address], 06/22/2024 19:25:22 06/22/20 24 06/22/2024 URIC ACID SERUM uric acid 5.1 mg/dL 2.5-6. [address] [facility] (Lab) [address] [place], [address], 06/22/2024 19:25:26 06/22/20 06/22/2024 LIPID PANEL cholesterol 198 mg/dL 140-19 9 NIH ZUHAIR NSUS RECOM MENDA TION FOR ROSALIA STERO L: ADULT CHILD LOW RISK: <200 <170 BORDE RLINE : <200- 239 ----- HIGH RISK: >240 >200 Not Available [facility] (Lab) [address] [place], [address], 06/22/2024 19:25:30 06/22/20 24 06/22/2024 LIPID PANEL triglyceride s 88 mg/dL 0-150 NIH ZUHAIR NSUS REPOR T RECOM MENDA TION FOR TRIGL YCERI APRYL: ADULT CHILD LOW RISK: <150 ----- BODER LINE: 150-1 99 ----- HIGH RISK: >200 ----- Not Available [facility] (Lab) [address] [place], [address], 06/22/2024 19:25:30 06/22/20 24 06/22/2024 LIPID PANEL HDL cholesterol 81 mg/dL 40- Not Available [facility] (Lab) [address] [place], [address], 06/22/2024 19:25:30 06/22/20 24 06/22/2024 LIPID PANEL [...] WILL NOT BE REPOR YVONNE. Not Available [facility] (Lab) [address] [place], [address], 06/22/2024 19:25:30 06/22/20 24 06/22/2024 MAGNE SIUM magnesium 1.6 mg/dL 1.6-2. [address] [facility] (Lab) [address] [place], [address], 06/22/2024 19:25:32 06/22/2006/22/2024 CBC/C OMPLE TE BLD COUNT W/DIF F white blood cells 5.6 x10'3 /uL 4.2-[address] [facility] (Lab) [address] [place], [address], 06/22/2024 19:30:17 06/22/20 24 06/22/2024 CBC/C OMPLE TE BLD COUNT W/DIF F red blood cells 4.55 x10'6 /uL 3.80-[address] [facility] (Lab) [address] [place], [address], 06/22/2024 19:30:17 06/22/2006/22/2024 CBC/C OMPLE TE BLD COUNT W/DIF F hemoglobin 14.8 g/dL 12.0-[address] [facility] (Lab) [address] [place], [address], 06/22/2024 19:30:17 06/22/20 24 06/22/2024 CBC/C OMPLE TE BLD COUNT W/DIF F hematocrit 45.9 % 35.7-4 5[address] [facility] (Lab) [address] [place], [address], 06/22/2024 19:30:17 06/22/20 24 06/22/2024 CBC/C OMPLE TE BLD COUNT W/DIF F mean red cell volume 100.9 fL 82.0-9 9[address] [facility] (Lab) [address] [place], [address], 06/22/2024 19:30:17 06/22/20 24 06/22/2024 CBC/C OMPLE TE BLD COUNT W/DIF F mean red cell hemoglobin 32.5 pg 27.0-[address] [facility] (Lab) [address] [place], [address], 06/22/2024 19:30:17 06/22/2006/22/2024 CBC/C OMPLE TE BLD COUNT W/DIF F mean RBC HGB concentratio n 32.2 g/dL 31.0-3 6.0 Not Available [facility] (Lab) [address] [place], [address], 06/22/2024 19:30:17 06/22/2006/22/2024 CBC/C OMPLE TE BLD COUNT W/DIF F red cell distribution width 14.3 % 11.8-[address] [facility] (Lab) [address] [place], [address], 06/22/2024 19:30:17 06/22/2006/22/2024 CBC/C OMPLE TE BLD COUNT W/DIF F platelets 269 x10'3 /uL 150-40 0 Not Available [facility] (Lab) [address] [place], [address], 06/22/2024 19:30:17 06/22/20 24 06/22/2024 CBC/C OMPLE TE BLD COUNT W/DIF F mean platelet volume 10.1 fL 9.0-[address] [facility] (Lab) [address] [place], [address], 06/22/2024 19:30:17 06/22/2006/22/2024 CBC/C OMPLE TE BLD COUNT W/DIF F neutrophils 58.0 % 39.0-[address] [facility] (Lab) [address] [place], [address], 06/22/2024 19:30:17 06/22/20 24 06/22/2024 CBC/C OMPLE TE BLD COUNT W/DIF F lymphocytes 27.1 % 16.0-[address] [facility] (Lab) [address] [place], [address], 06/22/2024 19:30:17 06/22/2006/22/2024 CBC/C OMPLE TE BLD COUNT W/DIF F monocytes 8.2 % 5.0-[address] [facility] (Lab) [address] [place], [address], 06/22/2024 19:30:17 06/22/2006/22/2024 CBC/C OMPLE TE BLD COUNT W/DIF F eosinophils 4.8 % 1.0-7. [address] [facility] (Lab) [address] [place], [address], 06/22/2024 19:30:17 06/22/2006/22/2024 CBC/C OMPLE TE BLD COUNT W/DIF F basophils 1.4 % 0.0-2. [address] [facility] (Lab) [address] [place], [address], 06/22/2024 19:30:17 06/22/2006/22/2024 CBC/C OMPLE TE BLD COUNT W/DIF F immature granulocytes 0.5 % 0.00-[address] [facility] (Lab) [address] [place], [address], 06/22/2024 19:30:17 06/22/20 24 06/22/2024 CBC/C OMPLE TE BLD COUNT W/DIF F neutrophils, absolute count 3.24 x10'3 /uL 1.5-8. [address] [facility] (Lab) [address] [place], [address], 06/22/2024 19:30:17 06/22/20 24 06/22/2024 CBC/C OMPLE TE BLD COUNT W/DIF F lymphocytes, absolute count 1.52 x10'3 /uL 1.07-[address] [facility] (Lab) [address] [place], [address], 06/22/2024 19:30:17 06/22/20 24 06/22/2024 CBC/C OMPLE TE BLD COUNT W/DIF F monocytes, absolute count 0.46 x10'3 /uL 0.29-[address] [facility] (Lab) [address] [place], [address], 06/22/2024 19:30:17 06/22/2006/22/2024 CBC/C OMPLE TE BLD COUNT W/DIF F eosinophils, absolute count 0.27 x10'3 /uL 0.02-[address] [facility] (Lab) [address] [place], [address], 06/22/2024 19:30:17 06/22/20 24 06/22/2024 CBC/C OMPLE TE BLD COUNT W/DIF F basophils, absolute count 0.08 x10'3 /uL 0.01-[address] [facility] (Lab) [address] [place], [address], 06/22/2024 19:30:17 06/22/2006/22/2024 CBC/C OMPLE TE BLD COUNT W/DIF F immature granulocytes ,absolute 0.03 x10'3 /uL 0.00-[address] [facility] [facility] [address] [place], [address], 06/22/2024 19:30:17 06/22/20 24 06/22/2024 CBC/C OMPLE TE BLD COUNT W/DIF F nucleated red blood cells 0.0 % -0 Not Available [facility] (Lab) [address] [place], [address], 06/22/2024 19:30:17 06/22/20 24 06/22/2024 CBC/C OMPLE TE BLD COUNT W/DIF F NRBC# 0.00 x10'3 /uL Not Available [facility] (Lab) [address] [place], [address], 06/22/2024 19:30:17 06/22/20 24 06/22/2024 VITAM IN D 25-HY DROXY vd25oh 37.5 NG/mL 30-100 Vitam in D Statu s: Defic ient: <20 ng/mL Insuf ficie nt: 20-29 ng/mL Suffi cient : 30-10 0 ng/mL Not Available [facility] (Lab) [address] [place], [address], 06/22/2024 19:39:07 06/22/2006/22/2024 TSH W/REF YANDEL FT4 TSH with reflex free T4 2.690 uIU/m L 0.465- 4.[address] [facility] (Lab) [address] [place], [address], 06/22/2024 19:50:38 06/22/20 24 06/22/2024 VITAM IN B12 (SERGEY KARTHIK ) vb12 771 pg/mL 239-[address] [facility] (Lab) [address] [place], [address], 06/22/2024 20:21:50 06/22/2006/22/2024 FOLAT E, SERUM /PLAS MA folate >20.0 NG/mL 2.76-[address] [facility] (Lab) [address] [place], [address], 06/22/2024 20:21:53 06/22/20 24 06/22/2024 HEMOG LOBIN A1C HA1C 5.0 % 4.0-6. 0 Diabe kate Scree javier Crite morgan: <5.7% Consi stent with absen ce of diabe kate 5.7-6 .4% Consi stent with incre ased risk for diabe kate (pred iabet es) >OR=6 .5% Consi stent with diabe kate REFER ENCE: Diabe kate Care 2016, 39(Vargas ppl.1 ):s13 -s22 Not Available [facility] (Lab) [address] [place], [address], 06/22/2024 21:18:36 07/08/20 24 07/08/2024 URINA LYSIS COMPL ETE/I RIS W/RFX color YELLOW Not Available [facility] (Lab) [address] [place], [address], 07/08/2024 18:25:41 07/08/20 24 07/08/2024 URINA LYSIS COMPL ETE/I RIS W/RFX appear EXTRA TURBID abnormal Not Available [facility] (Lab) [address] [place], [address], 07/08/2024 18:25:41 07/08/20 24 07/08/2024 URINA LYSIS COMPL ETE/I RIS W/RFX specific gravity 1.014 1.001- 1.[address] [facility] (Lab) [address] [place], [address], 07/08/2024 18:25:41 07/08/20 24 07/08/2024 URINA LYSIS COMPL ETE/I RIS W/RFX pH 5.5 pH_un its 5.0-9. [address] [facility] (Lab) [address] [place], [address], 07/08/2024 18:25:41 07/08/20 24 07/08/2024 URINA LYSIS COMPL ETE/I RIS W/RFX leukocytes NEGATI VE elissa/u L negati ve- Not Available [facility] (Lab) [address] [place], [address], 07/08/2024 18:25:41 07/08/20 24 07/08/2024 URINA LYSIS COMPL ETE/I RIS W/RFX nitrite 2+ negati ve- abnormal Not Available [facility] (Lab) [address] [place], [address], 07/08/2024 18:25:41 07/08/20 24 07/08/2024 URINA LYSIS COMPL ETE/I RIS W/RFX protein NEGATI VE mg/dL negati ve- Not Available [facility] (Lab) [address] [facility] [place], [address], 07/08/2024 18:25:41 07/08/20 24 07/08/2024 URINA LYSIS COMPL ETE/I RIS W/RFX glucose NORMAL mg/dL normal - Not Available [facility] (Lab) [address] [facility] [place], [address], 07/08/2024 18:25:41 07/08/20 24 07/08/2024 URINA LYSIS COMPL ETE/I RIS W/RFX ketones NEGATI VE mg/dL negati ve- Not Available [facility] (Lab) [address] [place], [address], 07/08/2024 18:25:41 07/08/20 24 07/08/2024 URINA LYSIS COMPL ETE/I RIS W/RFX urobilinogen NORMAL mg/dL normal - Not Available [facility] (Lab) [address] [place], [address], 07/08/2024 18:25:41 07/08/20 24 07/08/2024 URINA LYSIS COMPL ETE/I RIS W/RFX bilirubin NEGATI VE mg/dL negati ve- Not Available [facility] (Lab) [address] [place], [address], 07/08/2024 18:25:41 07/08/20 24 07/08/2024 URINA LYSIS COMPL ETE/I RIS W/RFX blood NEGATI VE mg/dL negati ve- Not Available [facility] (Lab) [address] [place], [address], 07/08/2024 18:25:41 07/08/20 24 07/08/2024 URINA LYSIS COMPL ETE/I RIS W/RFX white blood cells 0-8 /i??h pfi?? 0-[address] [facility] (Lab) [address] [place], [address], 07/08/2024 18:25:41 07/08/20 24 07/08/2024 URINA LYSIS COMPL ETE/I RIS W/RFX red blood cells NONE /i??h pfi?? 0-[address] [facility] (Lab) [address] [place], [address], 07/08/2024 18:25:41 07/08/20 24 07/08/2024 URINA LYSIS COMPL ETE/I RIS W/RFX bacteria NONE Not Available [facility] (Lab) [address] [place], [address], 07/08/2024 18:25:41 07/08/20 24 07/08/2024 URINA LYSIS COMPL ETE/I RIS W/RFX mucous OCCASI ONAL /i??l pfi?? abnormal Not Available [facility] (Lab) [address] [place], [address], 07/08/2024 18:25:41 07/08/20 24 07/08/2024 URINA LYSIS COMPL ETE/I RIS W/RFX squamous epithelial NONE /i??l pfi?? Not Available [facility] (Lab) [address] [place], [address], 07/08/2024 18:25:41 07/08/20 24 07/08/2024 URINA LYSIS COMPL ETE/I RIS W/RFX hyaline cast MODERA TE /i??l pfi?? none seen- abnormal Not Available [facility] (Lab) [address] [place], [address], 07/08/2024 18:25:41 07/08/20 24 07/08/2024 URINA LYSIS COMPL ETE/I RIS W/RFX calcium oxalate crystal MANY /i??h pfi?? none seen- abnormal Not Available [facility] (Lab) [address] [place], [address], 07/08/2024 18:25:41 07/08/20 24 07/08/2024 CULTU RE URINE urc ===== ===== ===== ===== ===== ===== ===== ===== ===== ===== ===== ===== ===== ===== ===== ===== ===== ===== ===== ===== ===== ===== ===== ===== Speci men NO.: [id number] Exam Statu s: Final Proce dure: [...] Genta micin >8 R R Bioty pe [id number] Oxida se React ion N Extra Sensi [...] furan toin <=[address] [facility] ([facility]) [address] [place], [address], 07/10/2024 09:00:48 05/25/20 24 05/25/2024 US, breas t, unila teral No observ ation record ed. [address]) [address] [place], [address], 06/22/2024 12:34:16 12/16/19 25 12/15/2024 CT, brain , w/o contr ast No observ ation record ed. [address] [place], [address], 01/12/2025 14:11:22 12/16/19 25 12/15/2024 XR, chest , 2 view No observ ation record ed. [address] [place], [address], 01/12/2025 14:11:21 12/16/19 25 12/15/2024 imagi ng/di agnos tic resul t No observ ation record ed. [email or web address] [place] [address] [address] [place], [address], 01/12/2025 14:11:21 12/16/19 25 12/15/2024 CT, cervi giuliana spine , w/o contr ast No observ ation record ed. [email or web address] [place] [address] [address] [place], [address], 01/12/2025 14:11:21 01/04/20 25 01/03/2025 XR, knee, 3 view No observ ation record ed. [email or web address] [place], [address], 01/12/2025 14:11:21 03/22/20 25 03/21/2025 MAMMO , scree javier, bilat eral No observ ation record ed. [facility] [address] [place], [address], 03/22/2025 14:20:12 03/22/20 25 03/21/2025 MAMMO , diagn ostic , digit al, bilat eral No observ ation record ed. [facility] [address] [place], [address], 03/22/2025 17:47:51 Result Notes None recorded. Problems Name Problem SNOMED Code Status Onset Date Resolution Date Notes Provider Name and Address Organization Details Recorded Time Radiothe rapy follow-u p 101032612 Active Not Available [facility] 3 02:58:26 Localize d, primary osteoart hritis of the pelvic region and thigh 133369934 Active Not Available [facility] 3 02:58:26 History of left hip replacem ent 49373751377 65428 Active 2016August 2013 Not Available [facility] 3 02:58:25 Anemia 222565958 Completed 201610/30/2017 Not Available [facility] 3 02:58:27 Chronic low back pain 918337593 Active 2016 Not Available [facility] 3 02:58:27 Depressi ve disorder 66736234 Active 2016 Not Available [facility] 3 02:58:28 Osteoart hritis 611452920 Active 2016 Not Available [facility] 3 02:58:29 History of spinal fusion 39393126528 107 Active 2016 L4&L5 Not Available [facility] 3 02:58:29 History of bariatri c surgical procedur e 818523560 Active 2016 and a revision in 2011 Not Available [facility] 3 02:58:29 Microsco pic hematuri a 947177355 Completed 201602/05/2018 Not Available [facility] 3 02:58:26 Polyarth ropathy 40721146 Active 2016 Not Available [facility] 3 02:58:28 Liver enzymes level above referenc e range 158977192 Active 2016 Not Available [facility] 3 02:58:30 Menopaus al flushing 727659164 Active 2016 Not Available [facility] 3 02:58:26 Obsessiv e-compul sive disorder 567644001 Active 2017 Not Available [facility] 3 02:58:26 Pruritic disorder 170967251 Active 2017 Not Available [facility] 3 02:58:27 History of hematuri a 875106821 Active 2017 Not Available [facility] 3 02:58:26 Elevated blood-pr essure reading without diagnosi s of hyperten violetta 635106091 Completed 201701/26/2019 Not Available [facility] 3 02:58:28 Anxiety 51529295 Active 2017 Not Available [facility] 3 02:58:29 Hyperten sive disorder 58179786 Completed 201708/03/2018 Not Available [facility] 3 02:58:28 Obesity 585086605 Active 2017 Not Available [facility] 3 02:58:29 Anemia 854761968 Active 2017 Not Available [facility] 3 02:58:27 Fatigue 13044076 Active 2017 Not Available [facility] 3 02:58:30 Vitamin B12 deficien cy (non anemic) 83312345 Active 2017 Not Available [facility] 3 02:58:30 Chronic pain syndrome 987918279 Active 2018 Not Available [facility] 3 02:58:28 Skin ulcer 77199151 Active 2018 Not Available [facility] 3 02:58:29 Hyperten sive disorder 13878102 Active 2018 Not Available [facility] 3 02:58:28 Gouty arthropa thy 066467882 Active 2018 Not Available [facility] 3 02:58:26 Palpitat ions 69356554 Active 2018 Not Available [facility] 3 02:58:30 Morbid obesity 175384472 Completed 201805/31/2021 Not Available [facility] 3 02:58:27 Hyperlip idemia 77350994 Active 2018 Not Available [facility] 3 02:58:29 Impacted cerumen of bilatera l ears 16155727747 92345 Active 2019 Not Available [facility] 3 02:58:25 Intermit tent palpitat ions 144747025 Active 2019 Not Available [facility] 3 02:58:25 Open wound of anterior abdomina l wall 573087342 Active 2019 Not Available [facility] 3 02:58:26 Alkaline phosphat ase above referenc e range 076406546 Active 2019 Not Available [facility] 3 02:58:27 Pain of left hip joint 27833339568 9100 Active 2019 Not Available [facility] 3 02:58:28 Gastro-e sophagea l reflux disease with esophagi tis 480736759 Active 2020 Not Available [facility] 3 02:58:27 Pain in both feet 88634245952 592492 Active 2020 Not Available [facility] 3 02:58:25 Lumbar spondylo sis 390822970 Active 2020 Not Available [facility] 3 02:58:27 Chronic kidney disease stage 3 534954880 Active 2020 Not Available [facility] 3 02:58:29 Pain of right shoulder joint 87250975137 074320 Active 2020 Not Available [facility] 3 02:58:25 Memory impairme nt 605562649 Active 2020 Not Available [facility] 3 02:58:28 Active or passive immuniza tion Active 2021 Not Available [facility] 3 02:58:25 Seen in emergenc y clinic 946360374 Active 2021 Not Available [facility] 3 02:58:26 Transiti on of care 01881180191 05 Active 2021 Not Available [facility] 3 02:58:26 Gynecolo gic examinat ion Active 2021 Not Available [facility] 3 02:58:30 Idiopath ic peripher al neuropat hy 60219550 Active 2021 Not Available [facility] 3 02:58:27 Allergic contact dermatit is 568132435 Active 2021 Not Available [facility] 3 02:58:27 Hypothyr oidism 07858824 Active 2021 Not Available [facility] 3 02:58:29 Gastroes ophageal reflux disease without esophagi tis 548966389 Active 2022 Adis Lloyd MD [address] [facility], [facility] [address], [place], [address] , [facility] 3 14:27:31 Urinary tract infectio us disease 77344763 Active 2022 Adis Lloyd MD [address], [place], [address] , [facility] 3 12:01:06 Mammogra phy abnormal 777000496 Active 2023 ALLYSON Dorado [address], [address], [place], [address] , [facility] 5 17:20:30 Postmeno pausal osteopor osis 766156215 Active 2023 Adis Lloyd MD [address], [place] [address], [place], [address] , [facility] 4 10:29:18 Bilatera l earache 535992111 Active 2024 Adis Lloyd MD [address] [place] [address], [place], [address] , [facility] 5 10:22:53 Problem Notes None recorded. Procedures Surgical History Date Name Laterality Status Provider Name and Address Organization Details Recorded Time 10/12/19 25 Ear Irrigation completed Adis Lloyd MD [address], [place] [address], [place], [address], [facility] 10/12/2024 12:16:47 11/10/19 24 Medicare Wellness CPT Code, subsequent completed November SHARI La RI USINE IO [facility] [employer] [facility] 11/10/2023 14:15:46 05/26/20 20 Most Recent Bone Density completed Not Available [facility] 10/30/2022 02:51:41 05/26/20 20 Most Recent Mammogram completed Not Available [facility] 10/30/2022 02:51:41 10/29/19 18 Date of Last Pap Smear completed Not Available [facility] 10/30/2022 02:51:41 Spinal Fusion completed Not Available [facility] 10/30/2022 02:51:44 total replacement of left hip joint completed Not Available [facility] 10/30/2022 02:51:44 bariatric operative procedure completed Not Available [facility] 10/30/2022 02:51:44 Total hip arthroplasty completed Not Available [facility] 10/30/2022 02:51:44 cholecystectomy completed Not Available [facility] 10/30/2022 02:51:44 Imaging Results None recorded. Procedure Notes None recorded. Medical Equipment None Reported. Allergies Allergen ID Allergen Name Allergen Category Reaction Reaction Severity Criticality Documentation Date Start Date Code Code System Note Provider Name and Address Organization Details Recorded Time 5252 tramadol medicatio n confusion tachycard ia moderate severe Not available 10/30/2022 57071 RxNorm Not Available [facility] 3 03:08:32 5253 morphine medicatio n itching severe Not available 10/30/2022 7052 RxNorm Not Available [facility] 3 03:08:32 5254 levothyro xine sodium medicatio n vomiting moderate Not available 10/30/2022 34714 RxNorm Adis Lloyd MD [address] [place] [address], [facility] [address], [place], [address] [place] [address] [employer] 4 11:43:52 5255 black cohosh extract medicatio n itching severe Not available 10/30/2022 61525 5 RxNorm Not Available [facility] 3 03:08:33 Medications Name Sig Start Date [...] day. 11/[address] [facility] Not Available Not Available Not Available [...] days. 12/02 completed Internal note: TOO EXPENSIV EExtkrishna l note: Take as per Hemat's recommen [...] Not Available Not Available Not Avai lable [facility] Thyroid 15 mg tablet Take 1 tablet [...] 1 CAPSULE BY MOUTH DAILY IN [facility] 07/08 completed Not Available Not Available Not Available Premarin 0.625 mg/gram vaginal cream Insert 1 applicat orful twice a week by vaginal route. 10/19 completed Not Available Not Available Not Available vitamin R66-xzznr acid injection solution Take by injectio n route. 06/25 completed once a month Not Available Not Available Not Available bupropion HCl XL 300 mg 24 hr tablet, extended release TAKE 1 TABLET BY MOUTH DAILY IN [facility] active Not Available Not Available No [...] Last Updated DateTime 168.91 cm 42.5 kg/m2 015104. 21 g 97.6 [degF] 95 % 95 % 90 /min 128/92 mm[Hg] Kasey Flores RN [place] [facility] [employer] 5 12:09:50 Date Recorded Oxygen saturation Oxygen saturation in Arterial blood by Pulse oximetry Provider Name and Address Organization Details Last Updated DateTime 01/12/2025 95 % 95 % Adis Lloyd MD [address], [place] [address], [place], [address], [facility] [employer] [facility] 01/12/2025 14:13:12 Date Recorded Body height Body mass index (BMI) Body weight Body temperature Heart rate Systolic And Diastolic Provider Name and Address Organization Details Last Updated DateTime 5 168.91 cm 40.9 kg/m2 449750. 64 g 97.3 [degF] 97 /min 128/80 mm[Hg] Kasey Flores RN [facility] [employer] [facility] 5 14:07:24 Date Recorded Body height Body mass index (BMI) Body weight Body temperature Respiratory rate Heart rate Oxygen saturation Oxygen saturation in Arterial blood by Pulse oximetry Systolic And Diastolic Provider Name and Address Organization Details Last Updated DateTime 4 168.91 cm 40.2 kg/m2 466854. 22 g 98.6 [degF] 20 /min 96 /min 98 % 98 % 136/76 mm[Hg] Iban Mao [facility] [employer] [facility] 4 14:20:26 Date Recorded Body height Body mass index (BMI) Body weight Body temperature Heart rate Respiratory rate Oxygen saturation Oxygen saturation in Arterial blood by Pulse oximetry Systolic And Diastolic Provider Name and Address Organization Details Last Updated DateTime 4 168.91 cm 40.1 kg/m2 649078. 64 g 98.4 [degF] 78 /min 20 /min 98 % 98 % 134/70 mm[Hg] Iban Mao [facility] [employer] [facility] 4 12:29:58 Date Recorded Oxygen saturation Oxygen saturation in Arterial blood by Pulse oximetry Provider Name and Address Organization Details Last Updated DateTime 07/08/2024 96 % 96 % Adis Lloyd MD [address], [facility] [address], [place], [address], [facility] [employer] [facility] 07/08/2024 12:33:42 Date Recorded Body height Body mass index (BMI) Body weight Body temperature Heart rate Systolic And Diastolic Provider Name and Address Organization Details Last Updated DateTime 4 168.91 cm 40.9 kg/m2 644604. 04 g 97.3 [degF] 92 /min 124/86 mm[Hg] Allie Ferreira RN [facility] [employer] [facility] 12:27:29 Social History Question Answer Notes LastModified by Organization Details LastModified Time Tobacco Smoking Status Never Smoker Daniela jaimes, [facility] [employer] [facility] 09/03/2023 11:42:04 Do You Have An Advance Directive? No Patient Declined Informatio n. [id number] Information not available 10/30/2022 Do You Wear A Helmet When Biking? No [email or web address] Information not available 09/03/2023 What Is Your Level Of Caffeine Consumption? Occasional [id number] Information not available 10/30/2022 In The 14 Days Before Symptom Onset, Have You Had Close Contact With A Laboratory-confi rmed COVID-19 While That Case Was Ill? No [email or web address] Information not available 09/03/2023 In The 14 Days Before Symptom Onset, Have You Had Close Contact With A Person Who Is Under Investigation For COVID-19 While That Person Was Ill? No [email or web address] Information not available 09/03/2023 What Type Of Diet Are You Following? REGULAR MIGRATION.[id number] [id number] Information not available 10/30/2022 Which Illicit Or Recreational Drugs Have You Used? No [email or web address] Information not available 09/03/2023 What Is The Highest Grade Or Level Of School You Have Completed Or The Highest Degree You Have Received? [id number] [email or web address] Information not available 09/03/2023 Have There Been Any Changes To Your Family Or Social Situation? No Information not available 09/03/2023 What Is The Fluoride Status Of Your Home? Unknown [email or web address] Information not available 09/03/2023 Are There Any Guns Present In Your Home? No Information not available 09/03/2023 Do You Use Insect Repellent Routinely? Yes Information not available 09/03/2023 Where Do You Live? SingleLevelHouse [email or web address] Information not available 09/03/2023 Advance Directive- Providers Has Reviewed Directive And Consents To Follow Them (insert Provider Name With Any Objectives In Notes Field) No [id number] Information not available 10/30/2022 Do You Have A Medical Power Of Victorian Literature Professor? No [email or web address] Information not available 09/03/2023 What Was The Date Of Your Most Recent Tobacco Screening? 11/10/2023 Information not available 11/10/2023 Do You Have Any Pets? No [email or web address] Information not available 09/03/2023 What Is Your Relationship Status? [id number] [id number] Information not available 10/30/2022 Do You Use Your Seat Belt Or Car Seat Routinely? Yes [email or web address] Information not available 09/03/2023 Do You Have Smoke And Carbon Monoxide Detectors In Your Home? Yes [email or web address] Information not available 09/03/2023 Are You Passively Exposed To Smoke? No [email or web address] Information not available 09/03/2023 Are There Any Smokers In Your House? No [email or web address] Information not available 09/03/2023 Do You Participate In Social Media? Yes [email or web address] Information not available 09/03/2023 Do You Use Sunscreen Routinely? Yes [email or web address] Information not available 09/03/2023 Has Tobacco Cessation Counseling Been Provided? No Information not available 09/03/2023 Have You Recently Traveled Abroad? No [email or web address] Information not available 09/03/2023 Are You Currently In School? No [email or web address] Information not available 09/03/2023 Do You Have Any Dietary Restrictions? No [email or web address] Information not available 09/03/2023 Sex: Female Functional Status Question Answer Note LastModified by Organizat ion Details LastModified Time Do you use any illicit or recreational drugs? No [email or web address] Information not available 09/03/2023 Do you or have you ever used any other forms of tobacco or nicotine? No [email or web address] Information not available 09/03/2023 What is your level of alcohol consumption? Occasional [id number] Information not available 10/30/2022 Do you or have you ever used smokeless tobacco? Never used smokeless tobacco [id number] Information not available 10/30/2022 Do you or have you ever used e-cigarettes or vape? Never used electronic cigarettes [email or web address] Information not available 09/03/2023 What is your exercise level? None [id number] Information not available 10/30/2022 Mental Status Question Answer Note LastModified by Organization D etails LastModified Time Do you feel stressed (tense, restless, nervous, or anxious, or unable to sleep at night)? [id number] [email or web address] Information not available 09/03/2023 Family History Relationship Description Onset Age of this Age Resolved Age Notes LastModified by Organization Details LastModified Time Father Malignant tumor of esophagus [email or web address] Not available 2023 11:43:58 Paternal Grandfather Malignant tumor of esophagus [email or web address] Not available 2023 11:43:58 Brother Diabetes mellitus xs3 [id number] Not available 10/30/2022 02:51:47 Sister Diabetes mellitus [id number] Not available 10/30/2022 02:51:47 Mother Congestive heart failure Not available 2023 11:43:58 Mother Hypertensive disorder [email or web address] Not available 2023 11:43:58 Mother Heart disease [email or web address] Not available 2023 11:43:58 Sister Disorder of thyroid gland 3 sister s [email or web address] Not available 01/23/2023 10:05:42 Sister Disorder of thyroid gland [email or web address] Not available 2023 11:43:58 Brother Disorder of [...] Non-US Vaccine (EpiVacCorona) 1 completed Not Available [facility] 10/30/2022 03:08:20 COVID-19 PS Non-US Vaccine (EpiVacCorona) 1 completed Not Available [facility] 10/30/2022 03:08:20 Hep A, adult 1 completed Not Available [facility] 10/30/2022 03:08:20 Influenza, split virus, quadrivalent, PF 0 completed Not Available [facility] 10/30/2022 03:08:20 Influenza, split virus, quadrivalent, PF 9 completed Not Available [facility] 10/30/2022 03:08:20 pneumococcal polysaccharide PPV23 9 completed Not Available [facility] 10/30/2022 03:08:20 Hep B, adult 8 completed Not Available [facility] 10/30/2022 03:08:21 Influenza, split virus, quadrivalent, PF 8 completed Not Available [facility] 10/30/2022 03:08:21 Hep B, adult 8 completed Not Available [facility] 10/30/2022 03:08:21 Hep B, adult 7 completed Not Available [facility] 10/30/2022 03:08:21 Influenza, split virus, quadrivalent, PF 2 completed Not Available [facility] 10/30/2022 03:08:21 Hep A, adult 1 completed Not Available [facility] 10/30/2022 03:08:21 Influenza, split virus, quadrivalent, PF 1 completed Not Available [facility] 10/30/2022 03:08:21 Influenza, split virus, quadrivalent, PF 7 completed Not Available [facility] 10/30/2022 03:08:21 Influenza, split virus, trivalent, PF 4 completed Iban jaimes, [facility] 06/22/2024 16:32:04 Tdap 4 completed Iban Mao null, [place] [facility] 06/22/2024 16:32:04 Past Encounters Encounter ID Performer Location Encounter Start Date Encounter Closed Date Diagnosis/Indication Diagnosis SNOMED-CT Code Diagnosis ICD10 Code Diagnosis IMO Codes Diagnosis Note [id number] Adis Lloyd MD [facility] [address] [place] [address] 11/22/2020 00:00:00 11/22/2020 12:00:37 [id number] [facility] ic_[facility] _ATHENA_M IGRATION_ DEFAULT_1 _1 , 12/21/2020 00:00:00 12/21/2020 18:01:50 [id number] Adis Lloyd MD [facility] [address] [place] [address] 1 12/21/2020 00:00:00 12/21/2020 12:30:10 [id number] Adis Lloyd MD [facility] [address] [place] [id number] 1 01/18/2021 00:00:00 01/18/2021 12:36:21 [id number] Adis Lloyd MD [facility] [address] [place] [address] 1 02/15/2021 00:00:00 02/15/2021 12:29:14 [id number] Adis Lloyd MD [facility] [address] [place] [address] 1 05/31/2021 00:00:00 05/31/2021 15:04:58 [id number] Adis Lloyd MD [facility] [address] [place] [address] 1 06/18/2021 00:00:00 06/18/2021 13:19:28 [id number] [facility] [address] [place] [address] 1 08/14/2021 00:00:00 08/14/2021 14:50:27 [id number] Adis Lloyd MD [facility] [address] [place] [address] 10/10/2021 00:00:00 10/10/2021 11:52:49 [id number] Adis Lloyd MD [facility] [address] [place] [address] 11/21/2021 00:00:00 11/21/2021 11:15:22 [id number] Adis Lloyd MD [facility] [address] [place] [address] 01/22/2022 00:00:00 01/22/2022 10:42:12 [id number] Adis Lloyd MD [facility] [address] [place] [address] 03/27/2022 00:00:00 03/27/2022 15:36:56 [id number] Adis Lloyd MD [facility] [address] [facility] [place] [address] 05/08/2022 00:00:00 05/08/2022 18:10:06 [id number] [facility] [address] [place], [place] [address] [place] [address] 08/08/2022 00:00:00 08/08/2022 12:22:40 [id number] Adis Lloyd MD [facility] [address] [place], [place] [address] [place] [address] 11/19/2022 14:03:23 11/19/2022 14:42:13 Hypothyroidism 41139142 E03.9 Chronic low back pain 27 8250812 M54.50 Chronic pain syndrome 37 4290883 G89.4 Gouty arthropathy 293993 008 M10.09 Hypertensive disorder 38 946369 I10 Lumbar spondylosis 47194 0009 M47.896 Obesity 509104436 E66.9 Polyarthropathy 48518229 M13.0 Chronic ki dney disease stage 3 314748898 N18.30 [id number] [facility] [address] [address] [address] [place] [address] 01/23/2023 09:28:47 01/23/2023 10:38:31 Hypothyroidism 02083938 E03.9 She was not able to tolerate [...] and minerals and reduce inflammati on. Fatigue 18619030 R53.83 Will send for thyroid antibodies to screen for autoimmune thyroid disease in addition to CBC, CMP, ferritin, GIORGIO/rheuma toid screen and B12/folate to screen for other potential secondary causes of fatigue. Liver enzy mes level above reference range 369621884 R74.8 Send for liver ultrasound along with [...] she chooses to go outside of the [facility] system to obtain labwork she was [...] ing. Thank you for this consultati on. [id number] Adis Lloyd MD [address] [address] 02/18/2023 11:40:57 02/18/2023 12:30:38 Hypothyroidism 44954898 E03.9 Chronic low back pain 27 6351506 M54.50 Chronic pain syndrome 37 8841605 G89.4 Gouty arthropathy 512312 008 M10.09 Hypertensive disorder 38 782338 I10 Lumbar spondylosis 19076 0009 M47.896 Obesity 269146991 E66.9 Polyarthropathy 51526869 M13.0 Chronic ki dney disease stage 3 245298294 N18.30 Memory impairment 064790 006 R41.3 [id number] Adis Lloyd MD [address] [address] 03/25/2023 12:35:02 03/25/2023 14:03:46 Hypothyroidism 46915335 E03.9 Chronic low back pain 27 9347873 M54.50 Chronic pain syndrome 37 0386634 G89.4 Gouty arthropathy 069031 008 M10.09 Hypertensive disorder 38 277641 I10 Lumbar spondylosis 70502 0009 M47.896 Obesity 993681455 E66.9 Polyarthropathy 98687907 M13.0 Chronic ki dney disease stage 3 112224812 N18.30 Memory impairment 305333 006 R41.3 Obsessive- compulsive disorder 246004477 F42.9 Gastroesop hageal reflux disease without esophagitis 404441731 K21.9 [id number] Adis Lloyd MD [address] [address] 04/29/2023 12:09:36 04/29/2023 13:02:24 Hypothyroidism 89386483 E03.9 Chronic low back pain 27 8221599 M54.50 Chronic pain syndrome 37 5949350 G89.4 Gouty arthropathy 413364 008 M10.09 Hypertensive disorder 38 102940 I10 Lumbar spondylosis 81941 0009 M47.896 Obesity 893967269 E66.9 Polyarthropathy 84279284 M13.0 Chronic ki dney disease stage 3 375682657 N18.30 Memory impairment 600522 006 R41.3 Obsessive- compulsive disorder 323851199 F42.9 Gastroesop hageal reflux disease without esophagitis 285120624 K21.9 [id number] Adis Lloyd MD [address] [address] 09/03/2023 11:41:41 09/03/2023 12:45:10 Hypothyroidism 61906206 E03.9 Chronic low back pain 27 3674652 M54.50 Chronic pain syndrome 37 5114012 G89.4 Gouty arthropathy 101853 008 M10.09 Hypertensive disorder 38 802047 I10 Lumbar spondylosis 87381 0009 M47.896 Obesity 637194594 E66.9 Polyarthropathy 16755990 M13.0 Chronic ki dney disease stage 3 256285195 N18.30 Memory impairment 852775 006 R41.3 Obsessive- compulsive disorder 770691212 F42.9 Gastroesop hageal reflux disease without esophagitis 258743502 K21.9 Screening for osteoporosis 165515039 Z13.820 Screening mammography 24 332607 Z12.31 [id number] Adis Lloyd MD [address] [address] 11/10/2023 15:58:23 11/10/2023 16:45:31 Adult health examination 224643001 Z00.00 Screening for disorder 116917509 Z13.9 Hypothyroidism 18567066 E03.9 Chronic low back pain 27 9128967 M54.50 Chronic pain syndrome 37 4635278 G89.4 Gouty arthropathy 957795 008 M10.09 Hypertensive disorder 38 431275 I10 Lumbar spondylosis 65258 0009 M47.896 Obesity 662961881 E66.9 Polyarthropathy 00091551 M13.0 Chronic ki dney disease stage 3 568932347 N18.30 Memory impairment 596717 006 R41.3 Obsessive- compulsive disorder 622830399 F42.9 Gastroesop hageal reflux disease without esophagitis 775773788 K21.9 [id number] Adis Lloyd MD [place] [address] 1 05/11/2024 14:11:07 05/11/2024 14:45:49 Hypothyroidism 23519930 E03.9 Chronic low back pain 27 4951561 M54.50 Chronic pain syndrome 37 9200485 G89.4 Gouty arthropathy 118598 008 M10.09 Hypertensive disorder 38 485341 I10 Lumbar spondylosis 34497 0009 M47.896 Obesity 796816371 E66.9 Polyarthropathy 17454008 M13.0 Chronic ki dney disease stage 3 016701317 N18.30 Memory impairment 149820 006 R41.3 Obsessive- compulsive disorder 213107960 F42.9 Gastroesop hageal reflux disease without esophagitis 924222306 K21.9 Mammography abnormal 168 368598 R92.8 [id number] Adis Lloyd MD [address] [address] 1 06/22/2024 12:14:49 06/22/2024 14:00:28 Gouty arthropathy 021755371 M10.09 Chronic pain syndrome 37 5647640 G89.4 Hypothyroidism 81865615 E03.9 Chronic low back pain 27 3507964 M54.50 Hypertensive disorder 38 857824 I10 Lumbar spondylosis 94244 0009 M47.896 Obesity 115520072 E66.9 Polyarthropathy 73984803 M13.0 Chronic ki dney disease stage 3 578175482 N18.30 Memory impairment 761281 006 R41.3 Obsessive- compulsive disorder 277075312 F42.9 Gastroesop hageal reflux disease without esophagitis 370729837 K21.9 Mammography abnormal 168 427141 R92.8 Administra tion of influenza vaccine 27777309 Z23 Active immunization 3387 9002 Z23 Impacted c erumen of bilateral ears 9038363323 232419 H61.23 [id number] Adis Lloyd MD [address] [address] 07/08/2024 12:04:45 07/08/2024 12:59:55 Chronic pain syndrome 788084489 G89.4 Gouty arthropathy 259797 008 M10.09 Hypothyroidism 55944246 E03.9 Chronic low back pain 27 2120561 M54.50 Hypertensive disorder 38 663349 I10 Lumbar spondylosis 16854 0009 M47.896 Obesity 465965301 E66.9 Polyarthropathy 83459727 M13.0 Chronic ki dney disease stage 3 952537134 N18.30 Memory impairment 996031 006 R41.3 Obsessive- compulsive disorder 377371003 F42.9 Gastroesop hageal reflux disease without esophagitis 290449567 K21.9 Impacted c erumen of bilateral ears 1756143822 839420 H61.23 [id number] Adis Lloyd MD [address] [address] 10/12/2024 11:56:32 10/12/2024 12:46:26 Hypothyroidism 62539258 E03.9 Chronic low back pain 27 4677977 M54.50 Chronic pain syndrome 37 7369494 G89.4 Gouty arthropathy 241560 008 M10.09 Hypertensive disorder 38 822533 I10 Lumbar spondylosis 13538 0009 M47.896 Obesity 771074574 E66.9 Polyarthropathy 54658590 M13.0 Chronic ki dney disease stage 3 435657988 N18.30 Memory impairment 823473 006 R41.3 Obsessive- compulsive disorder 673071894 F42.9 Gastroesop hageal reflux disease without esophagitis 542129745 K21.9 Impacted c erumen of bilateral ears 4640136510 813687 H61.23 Screening mammography 24 855690 Z12.31 Allergic c ontact dermatitis 292210551 L23.9 [id number] Adis Lloyd MD [address] [address] 01/12/2025 13:55:02 01/12/2025 14:22:38 Chronic pain syndrome 565477136 G89.4 Hypothyroidism 81680300 E03.9 Chronic low back pain 27 4038398 M54.50 Gouty arthropathy 280928 008 M10.09 Hypertensive disorder 38 012329 I10 Lumbar spondylosis 97790 0009 M47.896 Obesity 655214517 E66.9 Polyarthropathy 82117427 M13.0 Chronic ki dney disease stage 3 218620134 N18.30 Memory impairment 274084 006 R41.3 Obsessive- compulsive disorder 055527150 F42.9 Gastroesop hageal reflux disease without esophagitis 393337488 K21.9 Allergic c ontact dermatitis 007215282 L23.9 Health Concerns Section Related Observation LastModified by Organization Detai ls LastModified Time None Recorded Concern Status LastModified by Organization Details LastModified Time None Recorded Advance Directives Directive N: Patient declined informat ion. Payers Insurance Date Sequence Insurance Name Policy Number Policy Murray Covered Member ID Murray Member ID Guarantor Name 01/09/2025 1 [facility] (MEDICARE REPLACEMENT/AD VANTAGE - HMO) [id number] Monica Rolon [id number] Monica Rolon 01/12/2025 2 [place] WHEN MEDICARE OR MEDICARE REPLACEMENT PRIMARY) Monica Rolon [id number] Monica Rolon Notes Date Note Type Note Provider Name and Address Organization Details Recorded Time 05/11/2024 text/html Pt is here for f/u on her meds and chronic conditions. Doing [...] she was seeing before for this at [facility] gone and she will need to see another provider for this in future.Pt is f/u with her Bariatric surgeon and got another procedure done on 08/01/21 and she is f/u with them. Pt is f/u with Pain clinic at [facility] and is doing overall better with them.Pt saw breast surgeon at [facility] for her abnormal mammo result and they did testing and it all came back good, no concern with it.Pt has seen GI and had EGD and colonoscopy done with her GI and all came back good as per pt.Pt has seen Cardio at [facility] and all her heart testing came back good as per pt.Pt has seen Salvager Helper at [facility] and got multiple testing done with them and everything came back good as per pt.Pt is f/u with Psych at [facility] for her mood concerns. Doing overall Ok with her mood. Denies any SI/HI. Denies any problems with any of her meds.Pt saw spine surgeon at [facility] for her chronic back pain and they did not recommend any procedure for her. Adis Lloyd MD [address] [facility], [facility] [address], [place], [address], [facility] [employer] 05/11/2024 14:43:38 06/22/2024 text/html Pt is here for her annual exam. Doing overall well with her [...] she was seeing before for this at [facility] is gone and she will need to see another provider for this in future.Pt is f/u with her Bariatric surgeon at [facility] and got another procedure done on 08/01/21 and she is f/u with them. Pt is f/u with Pain clinic at [facility] and is doing overall better with them.Pt saw breast surgeon at [facility] for her abnormal mammo result and they did testing and it all came back good, no concern with it.Pt has seen GI and had EGD and colonoscopy done with her GI and all came back good as per pt.Pt has seen Cardio at [facility] and all her heart testing came back good as per pt.Pt has seen Salvager Helper at [facility] and got multiple testing done with them and everything came back good as per pt.Pt is f/u with Psych at [facility] for her mood concerns. Doing overall Ok with her mood. Denies any SI/HI. Denies any problems with any of her meds.Pt saw spine surgeon at [facility] for her chronic back pain and they did not recommend any procedure for her. Adis Lloyd MD [address], [place], [address], [place] - [facility] [employer] 06/22/2024 12:57:32 07/08/2024 text/html Pt is here for f/u on her annual labs and b/l ear [...] she was seeing before for this at [facility] is gone and she will need to see another provider for this in future.Pt is f/u with her Bariatric surgeon at [facility] and got another procedure done on 08/01/21 and she is f/u with them. Pt is f/u with Pain clinic at [facility] and is doing overall better with them. Pt will be getting spinal cord stimulator placement with them on 08/05/24.Pt saw breast surgeon at [facility] for her abnormal mammo result and they did testing and it all came back good, no concern with it.Pt has seen GI and had EGD and colonoscopy done with her GI and all came back good as per pt.Pt has seen Cardio at [facility] and all her heart testing came back good as per pt.Pt has seen Salvager Helper at [facility] and got multiple testing done with them and everything came back good as per pt.Pt is f/u with Psych at [facility] for her mood concerns. Doing overall Ok with her mood. Denies any SI/HI. Denies any problems with any of her meds.Pt saw spine surgeon at [facility] for her chronic back pain and they did not recommend any procedure for her. Adis Lloyd MD [address], [address], [place], [address], [employer] 07/08/2024 12:51:03 10/12/2024 text/html Pt is here for f/u on her meds and b/l ear flushing. Doing overall well with her current meds and denies any problem with them. Denies any new concerns. Pt got cervical spinal fusion surgery & thoracic laminectomy done with her Spine surgeon at [facility]. Pt is f/u with Pain clinic at [facility] and is doing overall better with them.Pt did not tolerate Levothyroxine. Pt has tried 4 different timing for it, but she still got s/e from it. So she stopped taking it and her symptoms resolved next day.Pt is requesting refill on Hydroxyzine for her chronic itching as the specialist she was seeing before for this at [facility] is gone and she will need to see another provider for this in future.Pt is f/u with her Bariatric surgeon at [facility] and got another procedure done on 08/01/21 and she is f/u with them. Pt saw breast surgeon at [facility] for her abnormal mammo result and they did testing and it all came back good, no concern with it.Pt has seen GI and had EGD and colonoscopy done with her GI and all came back good as per pt.Pt has seen Cardio at [facility] and all her heart testing came back good as per pt.Pt has seen Salvager Helper at [facility] and got multiple testing done with them and everything came back good as per pt.Pt is f/u with Psych at [facility] for her mood concerns. Doing overall Ok with her mood. Denies any SI/HI. Denies any problems with any of her meds.Pt saw spine surgeon at [facility] for her chronic back pain and they did not recommend any procedure for her. Adis Lloyd MD [address], [address], [place], [address], [facility] 10/12/2024 12:38:22 01/12/2025 text/html Pt is here for f/u on her meds and chronic conditions. Doing overall well with her current meds and denies any problem with them. Denies any new concerns. Pt got cervical spinal fusion surgery & thoracic laminectomy done with her Spine surgeon at [facility]. Pt is f/u with Pain clinic at [facility] and is doing overall better with them.Pt did not tolerate Levothyroxine. Pt has tried 4 different timing for it, but she still got s/e from it. So she stopped taking it and her symptoms resolved next day.Pt is requesting refill on Hydroxyzine for her chronic itching as the specialist she was seeing before for this at [facility] is gone and she will need to see another provider for this in future.Pt is f/u with her Bariatric surgeon at [facility] and got another procedure done on 08/01/21 and she is f/u with them. Pt saw breast surgeon at [facility] for her abnormal mammo result and they did testing and it all came back good, no concern with it.Pt has seen GI and had EGD and colonoscopy done with her GI and all came back good as per pt.Pt has seen Cardio at [facility] and all her heart testing came back good as per pt.Pt has seen Salvager Helper at [facility] and got multiple testing done with them and everything came back good as per pt.Pt is f/u with Psych at [facility] for her mood concerns. Doing overall Ok with her mood. Denies any SI/HI. Denies any problems with any of her meds.Pt saw spine surgeon at [facility] for her chronic back pain and they did not recommend any procedure for her. Adis Lloyd MD [address] [place] [address], [facility] [address], [place], [address], [place] - [facility] [employer] 01/12/2025 14:24:39 OBGyn Episode No OBEpisode recorded.
--- OUTSIDE RECORDS SUMMARY | 2025-05-26 17:21 | XMS_ITS | Clinical Summary ---
Author Organization [facility] Address [address] [place] [address] Care Team Providers Care Grave Digger Name Role Phone Adis Lloyd Primary Care Provider Unavailab le Source Comments [facility],non-owned Affiliates and Associated Physician Practices is amultiple site organization consisting of ambulatory clinics and hospital sitesin [place], [place], [place] and [place]. This disclosure is being madepursuant to the Care Everywhere program and may not contain all information available regarding this patient. Last updated 18.[facility] Allergies Active Allergy Reactions Criticality Noted Date [...] Active vitamine D3 (CHOLECALCIFERO L) 250 MCG (67680 UT) capsule Take 10,000 Units by mouth [...] (AF LURIA, FLUZONE TRIVALENT; 6MO+) (IIV3) 09/30/2016 [employer] primary monoval ent 12+ yr 0.3mL Purple [...] Comments Blood Pressure 118/78 08/23/2021 2:30 PM PLY CUTTER Pulse 68 08/23/2021 2:30 PM PLY CUTTER Temperature 36.8 C (98.3 F) 08/23/2021 2:30 PM PLY CUTTER Respiratory Rate 18 08/23/2021 2:30 PM PLY CUTTER Oxygen Saturation 98% 08/23/2021 2:30 PM PLY CUTTER Inhaled Oxygen Concentration - - Weight 118.3 kg (260 lb 12.8 oz) 08/23/2021 2:30 PM PLY CUTTER Height 170.2 cm (5' 7) 08/23/2021 2:30 PM PLY CUTTER Body Mass Index 40.85 08/23/2021 2:30 PM PLY CUTTER Plan of Treatment Health Maintenance Due Date [...] - Risk 60-74 years 1-dose series) 2021 SCREENING FOR DIABETES 08/03/2024 , 08/01/2021, 03/30/2021, Additional history exists DEPRESSION SCREENING 09/01/2024 COVID-19 VACCINE ( - 2024- season) 2025 02/07/2021, 01/15/2021 INFLUENZA VACCINE (#1) 2025 0, 07/27/2019, 07/15/2019, [...] COMPREHENSIVE METABOLIC PANEL STAT 08/03/2021 8:33 PM PLY CUTTER HEPATITIS C ANTIBODY STAT 08/03/2021 8:33 PM PLY CUTTER HIV-1 HIV-2 ANTIBODY + HIV P24 AG PANEL STAT 08/03/2021 8:33 PM PLY CUTTER from Last 3 Months or Most Recently Relevant to Health Maintenance Results * HIV-1 HIV-2 ANTIBODY + HIV P24 AG PANEL (08/03/2021 8:33 PM PLY CUTTER) HIV1/2 Ab + P24 Ag Non Reactive Non Reactive 08/03/2021 9:28 PM PLY CUTTER [facility] Blood BLOOD SPECIMEN / Unknown Venipuncture / Unknown 08/03/2021 8:33 PM PLY CUTTER 08/03/2021 8:46 PM PLY CUTTER Narrative [facility] - 08/03/2021 9:28 PM PLY CUTTER No Laboratory evidence of HIV infection. us Laurence Sahu MD LAB - CHEMISTRY ORDERABLES Final Result [facility] [address] [place] [address] * (ABNORMAL) COMPREHENSIVE METABOLIC PANEL (08/03/2021 8:33 PM PLY CUTTER) Glucose 105 70 - 105 mg/dL 08/03/2021 9:13 PM [facility] Sodium 133(L) 136 - 145 mmol/L 08/03/2021 9:13 PM [facility] Potassium 4.4 3.5 - 5.1 mmol/L 08/03/2021 9:13 PM [facility] Chloride 100 98 - 107 mmol/L 08/03/2021 9:13 PM [facility] CO2 18(L) 23 - 31 mmol/L 08/03/2021 9:13 PM [facility] Calcium 9.6 8.4 - 10.4 mg/dL 08/03/2021 9:13 PM [facility] Anion Gap 15 8 - 18 mmol/L 08/03/2021 9:13 PM [facility] BUN 14 9.8 - 20.1 mg/dL 08/03/2021 9:13 PM [facility] Creatinine 0.85 0.57 - 1.11 mg/dL 08/03/2021 9:13 PM [facility] Alkaline Phosphatase 169(H) 40 - 150 U/L 08/03/2021 9:13 PM [facility] ALT 271(H) 0 - 61 U/L 08/03/2021 9:13 PM [facility] AST 152(H) 5 - 34 U/L 08/03/2021 9:13 PM [facility] Protein Total 7.3 6.4 - 8.3 gm/dL 08/03/2021 9:13 PM [facility] Albumin 3.9 3.2 - 4.6 gm/dL 08/03/2021 9:13 PM [facility] Bilirubin Total 1.1 0.2 - 1.2 mg/dL 08/03/2021 9:13 PM [facility] eGFR by MDRD >60 >60 mL/min/1.7 3m2 08/03/2021 9:13 PM [facility] eGFR by MDRD >60 >60 mL/min/1.7 3m2 08/03/2021 9:13 PM PLY CUTTER [facility] Blood BLOOD SPECIMEN / Unknown Venipuncture / Unknown 08/03/2021 8:33 PM PLY CUTTER 08/03/2021 8:46 PM PLY CUTTER us Payton Cardona HEAD DOFFER-CHUCK WAGON DRIVER LAB - CHEMISTRY OR DERABLES Final Result Performing Organization Address [facility] Co de Phone Number [facility] [address] [place] [address] * HEPATITIS C ANTIBODY (08/03/2021 8:33 PM PLY CUTTER) [facility] HCV Antibody Screen Non Reactive Non Reactive 08/03/2021 10:14 PM PLY CUTTER [facility] Blood BLOOD SPECIMEN / Unknown Venipuncture / Unknown 08/03/2021 8:33 PM PLY CUTTER 08/03/2021 8:46 PM PLY CUTTER Narrative [facility] - 08/03/2021 10:14 PM PLY CUTTER Non Reactive - Antibodies to Hepatitis C virus (HCV) were not detected, result does not exclude early acute HCV infection. Laurence Sahu MD LAB - CHEMISTRY ORDERABLES Final Result Performing Organization Address [facility] de Phone Number [facility] [id number] [place] [phone] from Last 3 Months or Most Recently Relevant to Health Maintenance Insurance [facility] MANAGED MEDICARE [facility] MEDICAID - [place] Advance Directives * Full Code (Latest Code Status on File) Date Activated Date Inactivated Comments 03/28/2021 4:55 PM 03/30/2021 2:51 PM Care Teams Grave Digger Relationship Specialty Start Date End Date Adis Lloyd Update Information PCP - General Family Medicine 08/07/20
--- OUTSIDE RECORDS SUMMARY | 2025-05-26 17:22 | XMS_ITS | Encounter Summary ---
Author Organization [facility] Address [address] [place] [address] Care Team Providers Care Customer Services Manager Name Role Phone Unavailable Primary Care Provider Unavailabl e Encounter Details Date Type Department Care Team (Late st Contact Info) Description 11/15/2017 Abstract [facility] [address] [place] [address] , Generic Conversion, Social History Tobacco Use Types Packs/Day Years Used Date Smoking Tobacco: Never Assessed Comments Unknown Sex and Gender Information Value Date Recorded Sex Assigned at Not on file Legal Sex Female 10:25 PM SOCIAL MEDIA COMMUNITY MANAGER Gender Identity Not on file Sexual Orientation Not on file documented as of this encounter Plan of Treatment Not on file documented as of this encounter Visit Diagnoses Not on filedocumented in this encounter
--- OUTSIDE RECORDS SUMMARY | 2025-05-26 17:22 | XMS_ITS | Encounter Summary ---
Author Organization [facility] Address [address] [place] [address] Care Team Providers Care Foreign Agent Name Role Phone Unavailable Primary Care Provider Unavailabl e Encounter Details Date Type Department Care Team (Late st Contact Info) Description 02/06/2019 Abstract [facility] CONVERSION [address] [place] [address] , Generic Conversion, Social History Tobacco Use Types Packs/Day Years Used Date Smoking Tobacco: Never Assessed Comments Unknown Sex and Gender Information Value Date Recorded Sex Assigned at Not on file Legal Sex Female 10:25 PM GARAGE MECHANIC Gender Identity Not on file Sexual Orientation Not on file documented as of this encounter Plan of Treatment Not on file documented as of this encounter Visit Diagnoses Not on filedocumented in this encounter
--- OUTSIDE RECORDS SUMMARY | 2025-05-26 17:22 | XMS_ITS | Patient Health Record ---
Author Organization [facility] Address [address] [place] [address] Care Team Providers Care Foundry Hand Name Role Phone Loni Neely Unavailable [phone] Reason For Referral No Information Medications Medication SIG (Take, Route, Frequency, Duration) Notes Start Date End Date Status busPIRone HCl 5 MG Tablet Oral 11/10/2020 Active Amoxicillin 500 MG Capsule Oral 11/10/2020 Active Gabapentin 800 MG Tablet Oral 11/10/2020 Active DULoxetine HCl 60 MG Capsule Delayed Release Particles Oral 11/10/2020 Active Amitriptyline HCl 150 MG Tablet Oral 11/10/2020 Active tiZANidine HCl 4 MG Tablet Oral 11/10/2020 Active MUPIROCIN 2 % OINT *Reorder from [facility] for eRx and Interaction Alerts* 11/10/2020 Active VENLAFAXINE HCL ER 150 MG CP24 *[facility]* 11/10/2020 Active Sertraline HCl 50 MG Tablet Oral 11/10/2020 Active QUETIAPINE FUMARATE 100 MG TABS *Reorder from [facility] for eRx and Interaction Alerts* 11/10/2020 Active Carvedilol 6.25 MG Tablet Oral 11/10/2020 Active TIZANIDINE HYDROCHLORIDE 4 MG TABS *Reorder from [facility] for eRx and Interaction Alerts* 11/10/2020 Active QUEtiapine Fumarate 50 MG Tablet Oral 11/10/2020 Active TOPIRAMATE 50 MG TABS *Reorder f rom [facility] for eRx and Interaction Alerts* 11/10/2020 Active LISINOPRIL 10 MG TABS *Reorder f rom [facility] for eRx and Interaction Alerts* 11/10/2020 Active Allopurinol 100 MG Tablet Oral 11/10/2020 Active PEG 3350-ELECTROLYTE 240-22.72-6.72 -5.84 gram Solution Reconstituted Oral *Reorder from [facility] for eRx and Interaction Alerts* 11/10/2020 Active Omeprazole 20 MG Capsule Delayed Release Oral 11/10/2020 Active Sucralfate 1 GM/10ML Suspension Oral 11/10/2020 Active Triamcinolone Acetonide 0.1% Cream External 11/10/2020 Active busPIRone HCl 10 MG Tablet Oral 11/10/2020 Active Lisinopril 10 MG Tablet Oral 11/10/2020 Active Sertraline HCl 100 MG Tablet Oral 11/10/2020 Active Cyanocobalamin 1000 MCG/ML Solution Injection 11/10/2020 Active metroNIDAZOLE 500 MG Tablet Oral 11/10/2020 Active Amitriptyline HCl 50 MG Tablet Oral 11/10/2020 Active QUEtiapine Fumarate 100 MG Tablet Oral 11/10/2020 Active ALLOPURINOL 100 MG TABS *Reorder from [facility] for eRx and Interaction Alerts* 11/10/2020 Active Phentermine HCl 15 MG Capsule Oral 11/10/2020 Active hydrOXYzine HCl 50 MG Tablet Oral 11/10/2020 Active Immunizations Vaccine Route Administration [...] 04/19/2009 Administered MMR Unknown 06/02/2009 Administered Novel [id number], preservative free Unknown 06/25/2017 Administered Novel [id number], preservative free Unknown 07/20/2018 Administered Novel [id number], preservative free Unknown 07/15/2019 Administered Pneumococcal polysaccharide PPV23 Unknown 02/22/2019 Ad ministered Tdap Unknown 06/01/2019 Administered Varicella Unknown 04/19/2009 Administered Social History Social History Additional Details Category Social Info Options Details Migrated Social History Migrated Social History Alcohol Intake: Occasional 12/24/2019,Tobacco Years: Never smoker 12/24/2019 Plan Of Treatment No Information Insurance Providers Payer Name Payer Address Payer Phone Subscriber Number Group Number Insured Name Patient Relationship to Insured Coverage Start Date Coverage End Date [facility] [address] [place] [address] [id number] JUSTINE LANCE Self - patient is the insured [place] [address] [address] [place] [address] [id number] JUSTINE LANCE Self - patient is the insured Medical (General) History Surgical History Surgery Date(Month/Year) Total replacement of hip ([id number]) Breast procedure ([id number]) Cholecystectomy ([id number]) Unlisted procedure stomach (88594) 09/01
--- OUTSIDE RECORDS SUMMARY | 2025-05-26 17:22 | XMS_ITS | Encounter Summary ---
Author Organization [facility] Address [address] [place] [address] Care Team Providers Care Hearing Aid Repairer Name Role Phone Unavailable Primary Care Provider Unavailabl e Encounter Details Date Type Department Care Team (Latest Contact Info) Description 07/07/2018 Abstract [facility] , Generic Conversion, Social History Tobacco Use Types Packs/Day Years Used Date Smoking Tobacco: Never Assessed Comments Unknown Sex and Gender Information Value Date Recorded Sex Assigned at Not on file Legal Sex Female 10:25 PM SPECIAL SERVICES COORDINATOR Gender Identity Not on file Sexual Orientation Not on file documented as of this encounter Plan of Treatment Not on file documented as of this encounter Visit Diagnoses Not on filedocumented in this encounter
--- OUTSIDE RECORDS SUMMARY | 2025-05-26 17:22 | XMS_ITS | Clinical Summary ---
Author Organization [facility] Address [address] [place] [address] Care Team Providers Care Operations Research Analyst Name Role Phone Unavailable Primary Care Provider Unavailabl e Social History Tobacco Use Types Packs/Day Years Used Date Smoking Tobacco: Never Assessed Comments Unknown Sex and Gender Information Value Date Recorded Sex Assigned at Not on file Legal Sex Female 10:25 PM BELL NECK HAMMERER Gender Identity Not on file Sexual Orientation Not on file Last Filed Vital Signs Vital Sign Reading Time Taken Comments Blood Pressure 108/70 07/11/2010 1:14 PM BELL NECK HAMMERER Pulse 80 07/11/2010 1:14 PM BELL NECK HAMMERER Temperature - - Respiratory Rate - - Oxygen Saturation - - Inhaled Oxygen Concentration - - Weight 90.3 kg (199 lb) 07/11/2010 1:14 PM BELL NECK HAMMERER Height - - Body Mass Index - [...] COVID-19 Vaccine ( - 2023-2 5 season) 2025 RSV Immunization or 60+ Years (1 - [...]
[2025-05-26 17:30] LABS: Influenza A QL RT-PCR Negative (Negative); Influenza B QL RT-PCR Negative (Negative); RSV RNA, RT-PCR Negative (Negative); SARS-CoV-2 RNA PCR Negative (Negative)
[2025-05-26] MEDS: AZITHROMYCIN 250 MG TABLET 500 MG PO (17:43)
[2025-05-26] MEDS: ALBUTEROL SULFATE NEB 2.5 MG/3 ML INH INHALATION (19:25)
--- NOTE | 2025-05-26 19:35 | PC.NURSE ---
Phlebotomy called for help on second set of cultures.
--- NOTE | 2025-05-26 20:39 | ADMGEN ---
This patient, Monica Rolon, was admitted to Medical Room 349-2019. Patient/family oriented to hospital policies and general routines including ID bracelet, bed and alarms, visiting hours, pain management, procedures, bathroom and other care routines, personal items, smoking policy, room service/diet, and visiting hours. Information on how to activate the Rapid Response Team has been discussed. Patient/Family are encouraged to report perceived risks to care and to ask questions if they do not understand what they are told or what they should do.
--- NOTE | 2025-05-26 21:06 | ECG_ITS ---
Test Date: 2025-05-26 21:19:32 Measurements Intervals [place] Rate: 131 P: 66 UT: 161 QRS: -15 QRSD: 88 T: 44 QT: 275 QTc: 406 Interpretive Statements POOR QUALITY ECG WITH BASELINE ELECTRICAL ARTIFACT SINUS TACHYCARDIA ABNORMAL RHYTHM ECG Compared to ECG 12/15/2024 17:22:03 i NO OBVIOUS CHANGE Electronically Signed On 05-27-2025 07:38:36 CDT by Jay Jara M.D.
--- NOTE | 2025-05-26 21:09 | P.HP_ITS ---
H&P: HPI History of Present Illness Date/Time: 05/26/25 21:09 Chief Complaint: Dyspnea/Hemoptysis Narrative: This is a pleasant 65-year-old female patient with history of obesity, depression, anemia, anxiety, GERD, hypertension who presents to the emergency room today with complaints of 3 days of headache, cough, shortness of breath, in generalize malaise and fatigue. Patient states that she has had a lot of dental procedures and issues over the course of the past month and she thought that her dental work was starting to cause all of her symptoms is but today had hemoptysis causing her to present to the emergency room. She denies any chest pain, cannot identify any exacerbating or alleviating factors of her shortness of breath even exertion, she has reported chills with subjective fevers, no n ausea/vomiting/diarrhea. She has not had any recent travel and no known ill contacts. She is a nonsmoker. In the emergency room this patient's workup was performed with labs and imaging. Vital signs notable for tachycardia, mild tachypnea and with ambulation her sats dropped into the 80s therefore requires illness to gin. CBC showing leukocytosis of 14.3 with a left shift, stable H&H and normal platelets. Metabolic panel unremarkable with exception of transaminases of AST of 185 an ALT of 243. In November of this year they were normal with AST of 31 and ALT of 47. Patient's bilirubin is normal at 1.3. No lactic acid was checked but blood cultures x2 are pending. COVID, influenza and RSV are negative. Chest x-ray showed bilateral pneumonia and CT chest PE protocol shows extensive bilateral airspace disease compatible with pneumonia, right greater the left. There are also enlarged mediastinal and right hilar lymph nodes are likely reactive. There is no pulmonary embolism. Patient was started on Rocephin and azithromycin and admitted to hospital for further management. At the time of my admission it is noted that the patient's heart rate is in the 130s but does appear regular. No EKG was performed someone is ordered at this time. Her carvedilol 6.125 mg is also reordered. Patient is requiring 4 L of supplemental oxygen that she does not normally wear at home. Review of Systems Review of Systems: All systems reviewed & are unremarkable except as noted in HPI and below [facility] Past Medical History Medical History (Updated 05/26/25 @ 21:29 by TOD Plascencia) Sinus tachycardia Transaminitis Hypothyroidism Community acquired pneumonia Teeth decayed BMI greater than 40 Sprain of left foot Degenerative arthritis of left knee Achilles tendinitis, left leg Fracture of distal end of left fibula Patellofemoral arthralgia of both knees Peripheral neuropathy Metatarsalgia, left foot Encounter for postoperative care Cough Left foot pain Metatarsal bone fracture Dermatillomania Arthritis Wears glasses Weight gain History of MRSA infection Depression Anxiety Anemia GERD (gastroesophageal reflux disease) Hypertension Surgical History Surgical History History of bunionectomy History of melanoma excision History of breast lift H/O lumbosacral spine surgery H/O gastric bypass History of hip surgery Hx of cholecystectomy Family History Family History Mother Heart disease Father Esophageal cancer Sibling Diabetes mellitus Other Arthritis Depression High cholesterol Hypertension Neuropathy Social History Social History Smoking status: Never smoker Alcohol intake: former Alcohol use details: 2/MONTH Substance use: never Substance use type: does not use Lack of Transportation: No Lack of Food: Never True Current Housing: I Have Housing Concerned About Future Housing: No Difficulty Paying Gas/Electric Bills: No Difficulty Paying for Meds: No Currently Unemployed: No Education: High School Diploma/GED Difficulty w/ Childcare or Family Care: No Living arrangements: alone Gender identity (if verbalized by the patient): Female Sexual Orientation (if Verbalized by the Patient): Straight or Heterosexual Spiritual care concerns: No Meds Home Medications and Allergies Home Medications ?Medication ?Instructions ?Recorded ?Confirmed ?Type omeprazole 20 mg capsule,delayed 20 mg PO DAILY 05/26/25 History release quetiapine 100 mg tablet 100 mg PO DAILY 02/10/21 History quetiapine 50 mg tablet 50 mg PO DAILY 02/10/2105/03 History calcium citrate 600 mg PO BID 02/13/2105/26 History cholecalciferol (vitamin D3) 125 125 mcg PO DAILY 01/3005/26/25 History mcg (5,000 unit) capsule carvedilol 6.25 mg tablet 6.25 mg PO BID 05/17/2105/03 History buspirone 10 mg tablet 10 mg PO .BID 06/10/2105/26 History gabapentin 800 mg tablet 800 mg PO QID 11/27/2105/26 History bupropion HCl 300 mg 24 hr tablet, 150 mg PO .HS 12/1505/26/25 History extended release levothyroxine 75 mcg tablet 75 mcg PO DAILY 12/15/24 0 05/26/25 History (Synthroid) multivitamin-ferrous 1 tablet PO DAILY 12/15/24 0 05/26/25 History fumarate-folic acid 18 mg-400 mcg tablet (Centrum) Allergies Allergy/AdvReac Type Severity Reaction Status Date / Time clindamycin Allergy Severe Itching Verified 05/26/25 20:47 hydromorphone (From Dilaudid) Allergy Severe Itching Verified 05/26/25 20:47 morphine Allergy Severe Itching Verified 05/26/25 20:47 tramadol AdvReac Severe Palpitation Verified 05/26/25 20:47 s Vital Signs Vital Signs - 24 hr 05/26/25 15:02 05/26/25 16:30 05/26/25 17:30 Temperature 98.6 F Pulse Rate 105 H 104 H 108 H Respiratory Rate 22 H 20 20 Blood Pressure 122/68 136/83 131/83 Pulse Oximetry 93 94 98 Oxygen Delivery Room Air 05/26/25 18:30 05/26/25 19:28 05/26/25 19:36 Temperature Pulse Rate 62 120 H 123 H Respiratory Rate 20 18 18 Blood Pressure 157/91 H Pulse Oximetry 92 Oxygen Delivery 05/26/25 20:37 Temperature 99.2 F Pulse Rate 132 H Respiratory Rate 24 H Blood Pressure 140/85 Pulse Oximetry 98 Oxygen Delivery Exam Const: Other: Obese female patient lying supine on stretcher at this time appearing acutely ill. HENMT: Face/Nose/Sinus: Normal nares present Mouth: Yes moist mucous membranes Eyes: General: appearance normal, both eyes and all related structures Neck: Neck: supple and no JVD Lymphatic: lymphadenopathy not noted Chest: Other: Nontender to palpation Resp: Effort & Inspection: abnormal respiratory effort (Increased effort) Auscultation: crackles (Course) bilateral in the lower lung lynn (Right greater than left) Cardio: Rate: tachycardic Rhythm: regular rhythm Heart sounds: no gallops, no murmurs and no rubs GI: Inspection: non-distended GI Palp: Yes Soft to palpation and No Tenderness to palpation present (GI) Auscultation: normal bowel sounds Skin: General skin exam: normal color and no rashes or lesions noted Lesions: no lesions noted Wounds: no wounds Neuro: Speech: normal speech Motor exam (neuro): 5/5 motor strength present throughout and Normal motor muscle tone present throughout Other: No focal deficits Extrem: General: normal to inspection and no edema Psych: Mental Status: mental status grossly normal Affect: normal affect H&P: Results Labs Labs: Short CBC 05/26/25 Range/Units 16:31 WBC 14.3 H (4.5-10.0) K/mm3 Hgb 12.7 (12.0-15.0) g/dL Hct 38.5 (37.0-47.0) % Plt Count 207 (150-375) k/mm3 BMP 05/26/25 16:31 Sodium 132 L Potassium 4.0 Chloride 100 Carbon Dioxide 28 BUN 19 H Creatinine 0.67 L Glucose 104 Calcium 9.2 Liver Function 05/26/25 Range/Units 16:31 Total Bilirubin 1.3 (0.2-1.3) mg/dL AST 185 H (14-36) U/L ALT 243 H (6-35) U/L Alkaline Phosphatase 174 H (38-126) U/L Albumin 3.5 (3.5-5.1) g/dL Assessment and Plan Assessment and plan (1) Community acquired pneumonia: Code(s): J18.9 - Pneumonia, unspecified organism Status: Acute Assessment and Plan: * Rocephin and azithromycin daily * Supplemental oxygen * Albuterol neb q.6 hours * Monitor and trend labs and vitals * Patient noted to be tachycardic. EKG reviewed as sinus tachycardia rate of 130. * Leukocytosis with left shift noted at 14.3 * Blood cultures pending * Obtain sputum culture * Negative viral panel * Consider pulmonology consult * Monitor for further s/s of sepsis/respiratory failure. * ABG in AM * Guaifenesin 1200 mg BID ordered (2) Transaminitis: Code(s): R74.01 - Elevation of levels of liver transaminase levels Status: Acute Assessment and Plan: * Etiology uncertain. In * AST is 185 and ALT is 243. In comparison in November the AST was 31 ALT was 47. * Patient has normal bilirubin at 1.3 * Will order right upper quadrant ultrasound as patient is currently asymptomatic this noted transaminitis, however it is not her baseline. Patizelda t does have history of prior cholecystectomy. Also history of gastric bypass. Concern for potential choledocholithiasis * Trend with labs (3) Sinus tachycardia: Code(s): R00.0 - Tachycardia, unspecified Status: Acute Assessment and Plan: * Etiology sepsis vs dehydration vs arrhythmia * Notably QRS is normal and 88 milliseconds per EKG. * Patient's home medication of carvedilol 6.125 mg is reordered this time. Patient states she has missed this evening's dose. * EKG reviewed showing sinus tachycardia with a rate of 130 and no signs of ectopy or ischemia. * Will hydrate patient with IV fluids of normal saline at 100. * Monitor on telemetry * Blood cultures x2 pending * Patient has already been initiated on IV antibiotics for potential infection * Check TSH (4) Anxiety: Code(s): F41.9 - Anxiety disorder, unspecified Status: Chronic Assessment and Plan: * Continue home medications of Wellbutrin, BuSpar, Seroquel (5) Hypertension: Code(s): I10 - Essential (primary) hypertension Status: Chronic Assessment and Plan: * Systolic blood pressure 120s to 150s over 80s * Continue to monitor (6) GERD (gastroesophageal reflux disease): Code(s): K21.9 - Gastro-esophageal reflux disease without esophagitis Status: Chronic Assessment and Plan: * Continue omeprazole (7) Hypothyroidism: Code(s): E03.9 - Hypothyroidism, unspecified Status: Chronic Assessment and Plan: * Continue levothyroxine * Check TSH given Tachycardia Quality VTE Prophylaxis VTE prophylaxis: pharmacologic ordered Hospitalist MIPS Advance Care Plan I have confirmed that the patient's Advanced Care Plan is present, code status is documented, or surrogate decision maker is listed in patient medical record.: Yes Medication Reconciliation I have utilized all available resources to obtain, update and review the patients current medications (includes all prescriptions, OTC, herbals, cannabis, and nutritional supplements).: Yes
[2025-05-26] MEDS: SODIUM CHLORIDE 0.9% IV 1,000 ML 100 ML IV CONT (21:30)
[2025-05-26] MEDS: buPROPion HCL XL (24 HR) 150 MG TABCR PO (22:01)
[2025-05-26] MEDS: GABAPENTIN 400 MG CAPSULE 800 MG PO (22:01)
[2025-05-26] MEDS: guaiFENesin 12 HR 600 MG TABCR 1200 MG PO (22:01)
[2025-05-26] MEDS: cefTRIAXone 1 GM in SODIUM CHLORIDE 0.9% IV 50 ML 100 ML IVPB (22:02)
[2025-05-26 22:44] LABS: Magnesium 1.7 mg/dL (1.6-2.3)
[2025-05-27] VITALS (22 sets, daily range): BP systolic 111–128; BP diastolic 67–77; PULSE 106–147; RESP 16–20; TEMP 36.6–37.1; O2SAT 90–98; BMI 43.2
--- NOTE | 2025-05-27 | ECHO_ITS ---
Patient Info Name: Monica Rolon Age: 65 years : 1960 Gender: Female Ht: 66 in Wt: 269 lbs BSA: 2.45 m2 HR: 92 bpm BP: 113 / 70 mmHg Heart Rhythm: Atrial Fibrillation Technical Quality: Good Exam Date: 05/27/2025 11:32 AM Patient Status: I Admit Date: 05/27/2025 Exam Type: CA echo doppler color flow Complete two-dimensional, color flow and Doppler transthoracic echocardiogram is performed. Staff Referring Physician: Alma Pederson Tech Writer: Sandhya Brush Attending Provider: Parvez Means MD Summary 1. Complete two-dimensional, color flow and Doppler transthoracic echocardiogram is performed. 2. Small amount of mitral and tricuspid regurgitation. 3. Otherwise structurally normal appearing heart. 4. Atrial fibrillation. Left Ventricle Left ventricular chamber dimension is normal. Left ventricular systolic function is normal, estimated at 65-70. Right Ventricle Right ventricular chamber dimension is normal. Left Atria Left atrial chamber dimension is normal. Right Atria Right atrial chamber dimension is normal. Aortic Valve The aortic valve is normal. Pulmonic Valve The pulmonic valve is normal. Mitral Valve The mitral valve has normal leaflets. There is trace mitral valve regurgitation. Tricuspid Valve The tricuspid valve leaflets are normal. There is mild tricuspid valve regurgitation. Pericardium/Pleural The pericardium appears normal. Aorta The aortic root size at the sinus of Valsalva is normal. Left Ventricular Outflow Tract Name Value Normal LVOT 2D LVOT Diameter 2.0 cm LVOT Doppler LVOT Peak Velocity 99 cm/s LVOT Peak Gradient 4 mmHg LVOT Mean Gradient 2 mmHg LVOT VTI 18 cm LVOT Stroke Volume 58 ml LVOT CO 5.3 l/min LVOT CI 2.2 l/min/m2 Pulmonic Valve Name Value Normal RVOT Doppler RVOT Peak Velocity 64 cm/s RVOT Peak Gradient 2 mmHg PV Doppler PV Peak Velocity 108 cm/s PV Peak Gradient 5 mmHg Mitral Valve Name Value Normal MV Diastolic Function MV E Peak Velocity 76 cm/s MV A Peak Velocity 38 cm/s MV E/A 2.0 MV Decel Time (PW) 142 ms MV Annular TDI MV E/e' (Septal) 6.7 MV E/e' (Lateral) 4.8 MV E/e' (Average) 5.7 Tricuspid Valve Name Value Normal TV Regurgitation Doppler TR Peak Velocity 256 cm/s TR Peak Gradient 26 mmHg Aortic Valve Name Value Normal AV Doppler AV Peak Velocity 129 cm/s AV Peak Gradient 7 mmHg AV Area (Cont Eq Nitesh) 2.4 cm2 AV DI (Nitesh) 0.76 AV Regurgitation 2D LVOT Area 3.1 cm2 Ventricles Name Value Normal LV Dimensions 2D/MM IVS Diastolic Thickness (2D) 0.9 cm 0.6-1.0 LVID Diastole (2D) 4.3 cm 3.8-5.2 LVIW Diastolic Thickness (2D) 1.0 cm 0.6-0.9 LVID Systole (2D) 2.9 cm 2.2-3.5 LVOT Diameter 2.0 cm LV Mass (2D Cubed) 127.47 g 67.00-162.00 LV Mass Index (2D Cubed) 52 g/m2 43-95 Relative Wall Thickness (2D) 0.45 <=0.42 LV Fractional Shortening/Ejection Fraction 2D/MM LV Fractional Shortening (2D) 32 % 27-45 LV EF (2D Teichholz) 61 % LV Diastolic Volume (4C MOD) 77 ml LV EF (4C MOD) 57 % LV Diastolic Volume (2C MOD) 66 ml LV EF (2C MOD) 59 % LV Diastolic Volume (BP MOD) 74 ml 46-106 LV Diastolic Volume Index (BP MOD) 30 ml/m2 29-61 LV Systolic Volume (BP MOD) 34 ml 14-42 LV Systolic Volume Index (BP MOD) 14 ml/m2 8-24 LV EF (BP MOD) 54 % 54-74 LV Diastolic Length (4C) 8.1 cm LV Systolic Length (4C) 6.6 cm LV Stroke Volume (4C MOD) 44 ml Atria Name Value Normal LA Dimensions LA Volume (4C A-L) 23 ml LA Volume (BP A-L) 31 ml RA Dimensions RA Systolic Major [place] Length (4C) 4.5 cm 2.2-2.8 RA Area (4C) 13.7 cm2 <=18.0 Report Signatures
[2025-05-27 05:16] LABS: Alveolar/Arterial O2 Gradient 150.9 mmHg; Fractional Inspired Oxygen 36 %; HCO3 ABG 25.7 mEq/l (22.0-26.0); Oxygen Content ABG 14.8 %vol (16.0-22.0); Oxygen Saturation ABG 91.9 % (95.0-100.0); PCO2 ABG 39.3 mmHg (35.0-45.0); PO2 ABG 60.2 mmHg (80.0-100.0); PO2 FiO2 Ratio Arterial Blood 1.67 %
[2025-05-27 05:20] LABS: Liters per Minute 4.0 LPM; Site Drawn RIGHT BRACHIAL
[2025-05-27 05:38] LABS: Hematocrit 34.4 % (37.0-47.0); Hemoglobin 11.3 g/dL (12.0-15.0); Mean Corpuscular HGB Conc 32.8 g/dl (32-36); Mean Corpuscular Hemoglobin 32.8 pg (26-34); Mean Corpuscular Volume 99.7 fl (80-100); Platelet Count Result 186 k/mm3 (150-375); Red Blood Count 3.45 M/mm3 (4.2-5.4); White Blood Count 12.2 K/mm3 (4.5-10.0)
[2025-05-27] MEDS: LEVOTHYROXINE SODIUM 75 MCG TABLET PO (06:00)
[2025-05-27 06:03] LABS: Band Neutrophils Percent 7 % (0-6); Lymphocytes Absolute Manual 1.46 K/mm3 (1.1-4.5); Lymphocytes Percent Manual 12 % (18-44); Monocytes Absolute Manual 0.36 K/mm3 (0.1-0.90); Monocytes Percent Manual 3 % (3-9); Neutrophils Absolute Manual 10.37 K/mm3 (1.3-6.7); Neutrophils Percent Manual 78 % (46-73); Schistocytes None Seen; Total Cells Counted 100
[2025-05-27 06:08] LABS: Alanine Aminotransferase 156 U/L (6-35); Albumin Level 2.9 g/dL (3.5-5.1); Alkaline Phosphatase 159 U/L (38-126); Anion Gap 3 mmol/L (4-12); Aspartate Amino Transferase 86 U/L (14-36); Bilirubin,Total 1.2 mg/dL (0.2-1.3); Blood Urea Nitrogen 15 mg/dL (7-17); Calcium 8.4 mg/dL (8.4-10.2); Carbon Dioxide 27 mmol/L (22-30); Chloride 101 mmol/L (98-107); Estimated CRCL calculation 79 ml/min; Estimated Glomerular Filt Rate > 60; Glucose 99 mg/dL (65-110); Magnesium 1.7 mg/dL (1.6-2.3); Potassium 3.6 mmol/L (3.4-5.0); Sodium 131 mmol/L (137-145); Total Protein 5.5 g/dL (6.3-8.2)
[2025-05-27 06:19] LABS: Thyroid Stimulating Hormone Reflex 0.710 uIU/mL (0.465-4.68)
--- NOTE | 2025-05-27 09:27 | ECG_ITS ---
Test Date: 2025-05-27 09:47:39 Measurements Intervals Silva Rate: 137 P: 0 DE: 0 QRS: 21 QRSD: 98 T: 44 QT: 270 QTc: 408 Interpretive Statements ATRIAL FIBRILLATION WITH RAPID VENTRICULAR RESPONSE ABNORMAL RHYTHM ECG Compared to ECG 05/26/2025 21:19:32 Sinus tachycardia no longer present Electronically Signed On 05-27-2025 20:08:59 CDT by Elisabeth Mosher M.D.
[2025-05-27] MEDS: cefTRIAXone 1 GM in SODIUM CHLORIDE 0.9% IV 50 ML 100 ML IVPB (09:38)
[2025-05-27] MEDS: GABAPENTIN 400 MG CAPSULE 800 MG PO ×2 (09:39→20:40)
[2025-05-27] MEDS: CHOLECALCIFEROL (VITAMIN D3) 125 MCG (5,000 UNITS) TABLET PO (09:39)
[2025-05-27] MEDS: MULTIVITAMINS /C LUTEIN (CENTRUM SILVER) TABLET *BKC 1 TAB PO (09:39)
[2025-05-27] MEDS: guaiFENesin 12 HR 600 MG TABCR 1200 MG PO ×2 (09:39→20:40)
[2025-05-27] MEDS: PANTOPRAZOLE 40 MG TABLET PO (09:39)
[2025-05-27] MEDS: CALCIUM CITRATE 315 MG/VITAMIN D 6.25 MCG (250 UNITS) TAB 2 TABLET PO ×2 (09:40→18:10)
[2025-05-27] MEDS: AZITHROMYCIN 500 MG TABLET PO (09:40)
[2025-05-27] MEDS: ENOXAPARIN 40 MG/0.4 ML SYRINGE SUB-Q (09:42)
[2025-05-27] MEDS: ACETAMINOPHEN 325 MG TABLET 650 MG PO (09:59)
[2025-05-27] MEDS: METOPROLOL TARTRATE INJ 5 MG/5 ML VIAL IV PUSH (10:00)
--- NOTE | 2025-05-27 10:44 | ECG_ITS ---
Test Date: 2025-05-27 11:10:35 Measurements Intervals [place] Rate: 107 P: 0 KS: 0 QRS: 44 QRSD: 89 T: 51 QT: 297 QTc: 397 Interpretive Statements ATRIAL FIBRILLATION WITH RAPID VENTRICULAR RESPONSE ABNORMAL RHYTHM ECG Compared to ECG 05/27/2025 09:47:39 No significant changes Electronically Signed On 05-27-2025 20:07:44 CDT by Elisabeth Mosher M.D.
--- NOTE | 2025-05-27 11:43 | PM.CNCAR ---
Assessment and Plan Assessment and plan (1) Atrial fibrillation with rapid ventricular response: Code(s): I48.91 - Unspecified atrial fibrillation Status: Acute Assessment and Plan: Atrial fibrillation with rapid ventricular response, rates in the 120s to 140s. This is a new diagnosis in the setting of acute illness with pneumonia. Discussed this diagnosis with her including pathophysiology, management strategy is, and risks/complications. For the time being, we will pursue a rate control and anticoagulation strategy. Discontinue Coreg. Start metoprolol tartrate 25 mg p.o. b.i.d. this can be uptitrated as needed as long as blood pressure allows If unable to achieve rate control with beta-blockers or calcium channel blockers, can start amiodarone drip Anticipate heart rate will improve with treatment of her pneumonia She has a CHADS2 Vasc score of 2 (gender, hypertension) Will start Xarelto 20 mg daily Echo has been performed, results are pending (2) Hypertension: Code(s): I10 - Essential (primary) hypertension Status: Chronic Assessment and Plan: At goal. (3) Community acquired pneumonia: Code(s): J18.9 - Pneumonia, unspecified organism Status: Acute Assessment and Plan: Antibiotics and other management per hospitalist. History of Present Illness History of Present Illness Consult date/time: 05/27/25 11:43 Requesting physician: Loni Pettit APRN Consult reason: atrial fibrillation Reason For Visit: Pneumonia, hypoxia Narrative: Monica Rolon is a 65 year old female with obesity, depression, anemia, anxiety, GERD, hypertension who presents to the emergency room today with complaints of 3 days of headache, cough, shortness of breath, in generalize malaise and fatigue. She was admitted to the hospital and is being treated for pneumonia. Cardiology is consulted for atrial fibrillation with rapid ventriular response. Patient went into atrial fibrillation with rapid ventricular response last night. She denies any history of atrial other cardiac history. She has been given several doses of IV metoprolol and diltiazem and remains tachycardic. She does feel palpitations intermittently. She does have shortness of breath. She denies chest pain, swelling. Review of Systems Review of Systems: All systems reviewed & are unremarkable except as noted in HPI and below PMFSH Past Medical History Medical History Sinus tachycardia Transaminitis Hypothyroidism Community acquired pneumonia Teeth decayed BMI greater than 40 Sprain of left foot Degenerative arthritis of left knee Achilles tendinitis, left leg Fracture of distal end of left fibula Patellofemoral arthralgia of both knees Peripheral neuropathy Metatarsalgia, left foot Encounter for postoperative care Cough Left foot pain Metatarsal bone fracture Dermatillomania Arthritis Wears glasses Weight gain History of MRSA infection Depression Anxiety Anemia GERD (gastroesophageal reflux disease) Hypertension Surgical History Surgical History History of bunionectomy History of melanoma excision History of breast lift H/O lumbosacral spine surgery H/O gastric bypass History of hip surgery Hx of cholecystectomy Family History Family History Mother Heart disease Father Esophageal cancer Sibling Diabetes mellitus Other Arthritis Depression High cholesterol Hypertension Neuropathy Social History Social History Smoking status: Never smoker Alcohol intake: former Alcohol use details: 2/MONTH Substance use: never Substance use type: does not use Lack of Transportation: No Lack of Food: Never True Current Housing: I Have Housing Concerned About Future Housing: No Difficulty Paying Gas/Electric Bills: No Difficulty Paying for Meds: No Currently Unemployed: No Education: High School Diploma/GED Difficulty w/ Childcare or Family Care: No Living arrangements: alone Gender identity (if verbalized by the patient): Female Sexual Orientation (if Verbalized by the Patient): Straight or Heterosexual Spiritual care concerns: No Meds Home Medications and Allergies Home Medications ?Medication ?Instructions ?Recorded ?Confirmed ?Type omeprazole 20 mg capsule,delayed 20 mg PO DAILY 02/10/21 05/26/25 History release quetiapine 100 mg tablet 100 mg PO HS 02/10/21 05/26/25 History quetiapine 50 mg tablet 50 mg PO DAILY 02/10/21 05/26/25 History calcium citrate 600 mg PO BID 02/13/21 05/26/25 History cholecalciferol (vitamin D3) 125 125 mcg PO DAILY 02/13/21 05/26/25 History mcg (5,000 unit) capsule carvedilol 6.25 mg tablet 6.25 mg PO BID 05/17/21 05/26/25 History buspirone 10 mg tablet 10 mg PO .BID 06/10/21 05/26/25 History gabapentin 800 mg tablet 800 mg PO QID 11/27/21 05/26/25 History bupropion HCl 300 mg 24 hr tablet, 150 mg PO .HS 12/15/24 05/26/25 History extended release levothyroxine 75 mcg tablet 75 mcg PO DAILY 12/15/24 05/26/25 History (Synthroid) multivitamin-ferrous 1 tablet PO DAILY 12/15/24 05/26/25 History fumarate-folic acid 18 mg-400 mcg tablet (Centrum) amitriptyline 150 mg tablet 150 mg PO DAILY 05/26/25 05/26/25 History Allergies Allergy/AdvReac Type Severity Reaction Status Date / Time clindamycin Allergy Severe Itching Verified 05/26/25 20:47 hydromorphone (From Dilaudid) Allergy Severe Itching Verified 05/26/25 20:47 morphine Allergy Severe Itching Verified 05/26/25 20:47 tramadol AdvReac Severe Palpitation Verified 05/26/25 20:47 s Vital Signs Vital Signs - 24 hr 05/26/25 15:02 05/26/25 16:30 05/26/25 17:30 Temperature 37.0 C Pulse Rate 105 H 104 H 108 H Respiratory Rate 22 H 20 20 Blood Pressure 122/68 136/83 131/83 Pulse Oximetry 93 94 98 Oxygen Delivery Room Air Oxygen Flow Rate 05/26/25 18:30 05/26/25 19:28 05/26/25 19:36 Temperature Pulse Rate 62 120 H 123 H Respiratory Rate 20 18 18 Blood Pressure 157/91 H Pulse Oximetry 92 Oxygen Delivery Oxygen Flow Rate 05/26/25 20:37 05/26/25 21:20 05/27/25 00:00 Temperature 37.3 C Pulse Rate 132 H 117 H Respiratory Rate 24 H Blood Pressure 140/85 Pulse Oximetry 98 90 Oxygen Delivery Oxygen Flow Rate 2 05/27/25 01:00 05/27/25 01:10 05/27/25 03:01 Temperature Pulse Rate 113 H 122 H 126 H Respiratory Rate 20 18 Blood Pressure 128/77 Pulse Oximetry 92 Oxygen Delivery Oxygen Flow Rate 05/27/25 03:05 05/27/25 03:06 05/27/25 04:00 Temperature Pulse Rate 124 H 112 H Respiratory Rate 18 Blood Pressure Pulse Oximetry 92 Oxygen Delivery Nasal Cannula Oxygen Flow Rate 4 05/27/25 04:42 05/27/25 07:01 05/27/25 07:11 Temperature 36.6 C Pulse Rate 116 H 106 H 108 H Respiratory Rate 18 18 18 Blood Pressure 113/70 Pulse Oximetry 91 Oxygen Delivery Oxygen Flow Rate 05/27/25 08:00 05/27/25 09:40 05/27/25 10:00 Temperature Pulse Rate 147 H 136 H 147 H Respiratory Rate 18 Blood Pressure Pulse Oximetry 91 Oxygen Delivery Nasal Cannula Oxygen Flow Rate 4 Exam Const: General: comfortable, no acute distress, alert and awake Orientation/consciousness: patient oriented x3 HENMT: Head: normal to inspection Eyes: General: appearance normal, both eyes and all related structures Pupils: Equal, round and reactive pupils present Neck: Neck: normal visual inspection, supple and no JVD Carotids: normal carotid upstroke Resp: Effort & Inspection: normal respiratory effort Auscultation: crackles and rhonchi Other: Conversational dyspnea Cardio: Rate: tachycardic Rhythm: abnormal rhythm irregularly irregular Heart sounds: S1 normal heart sound present, S2 normal heart sound present and no murmurs GI: Auscultation: normal bowel sounds Skin: General skin exam: normal color Neuro: General: patient oriented x3 Cranial nerves: Yes Equal, round and reactive pupils present Extrem: General: normal to inspection Psych: Appearance: grossly normal Mental Status: mental status grossly normal Results Labs and Meds 05/27/25 05:28 05/27/25 05:28 Lab results: Cardiac Enzymes 05/26/25 05/27/25 Range/Units 16:31 05:28 AST 185 H 86 H (14-36) U/L CBC 05/26/25 05/27/25 Range/Units 16:31 05:28 WBC 14.3 H 12.2 H (4.5-10.0) K/mm3 RBC 3.91 L 3.45 L (4.2-5.4) M/mm3 Hgb 12.7 11.3 L (12.0-15.0) g/dL Hct 38.5 34.4 L (37.0-47.0) % Plt Count 207 186 (150-375) k/mm3 Lymph # (Auto) Not Reportable Not Reportable [place] # (Auto) Not Reportable Not Reportable Eos # (Auto) Not Reportable Not Reportable Baso # (Auto) Not Reportable Not Reportable Comprehensive Metabolic Panel 05/26/25 05/27/25 Range/Units 16:31 05:28 Sodium 132 L 131 L (137-145) mmol/L Potassium 4.0 3.6 (3.4-5.0) mmol/L Chloride 100 101 (98-107) mmol/L Carbon Dioxide 28 27 (22-30) mmol/L BUN 19 H 15 (7-17) mg/dL Creatinine 0.67 L 0.84 (0.7-1.0) mg/dL Glucose 104 99 (65-110) mg/dL Calcium 9.2 8.4 (8.4-10.2) mg/dL AST 185 H 86 H (14-36) U/L ALT 243 H 156 H (6-35) U/L Alkaline Phosphatase 174 H 159 H (38-126) U/L Total Protein 6.4 5.5 L (6.3-8.2) g/dL Albumin 3.5 2.9 L (3.5-5.1) g/dL Intake and Output 05/26/25 05/27/25 05/27/25 23:59 07:59 15:59 Intake Total 1603.3 900 120 Output Total 300 1200 650 Balance 1303.3 -300 -530 Intake: IV 1153.3 Lactated Ringers 1,000 ml @ 999 1000 mls/hr IV CONT .Q1H1M STA Rx#: [id number] Sodium Chloride 0.9% IV 1,000 103.3 ml @ 100 mls/hr IV CONT .Q10H IRENE Rx#:[id number] cefTRIAXone 1 gm In Sodium 50 Chloride 0.9% IV 50 ml @ 100 mls/hr IVPB DAILY IRENE Rx#: [id number] Oral 450 900 120 Output: Urine 300 1200 650
--- NOTE | 2025-05-27 14:09 | P.PNIM_ITS ---
Progress Note: A&P Assessment and Plan (1) Acute respiratory failure with hypoxia: Code(s): J96.01 - Acute respiratory failure with hypoxia Status: Acute Assessment and Plan: Patient on admission requiring 4 L supplemental oxygen to maintain 92% patient does not wear oxygen at home likely secondary to her underlying pneumonia as well AFib with RVR. * Will continue to wean oxygen as tolerated * CTA chest with no PE * Nebulizers scheduled (2) Community acquired pneumonia: Code(s): J18.9 - Pneumonia, unspecified organism Status: Acute Assessment and Plan: CT showing bilateral pneumonia and elevated wbc's with acute respiratory failure with hypoxia * IV Rocephin and azithromycin PO daily * Supplemental oxygen currently on 4 L wean supple oxygen to maintain 92% * levalbuterol neb q.6 hours * Blood cultures NGTD * Obtain sputum culture * Incentive spirometer * Guaifenesin 1200 mg BID ordered (3) Atrial fibrillation with rapid ventricular response: Code(s): I48.91 - Unspecified atrial fibrillation Status: Acute Assessment and Plan: Patient with new onset AFib RVR rates in the 140s no previous history. Patient reports she has even had a Holter monitor in the past that showed no atrial fibrillation likely secondary to patient's infection and hypoxia * Patient received 1 time dose IVP metoprolol * Remain low 120s gave a single dose 25 mg Cardizem IVP with improvement but had not converted * Cardiology was consulted * Echocardiogram pending * Plan to initiate metoprolol if patient converted on own. If patient's BP unable to tolerate metoprolol transition to amiodarone (4) Transaminitis: Code(s): R74.01 - Elevation of levels of liver transaminase levels Status: Acute Assessment and Plan: Spoke with patient regarding her elevated liver enzymes which time she did hurt she has been taking a of Tylenol due to her to the pain could be underlying sebastian but also showed some fatty liver disease and cannot rule cirrhosis on the ultrasound patient reports she does not drink alcohol * AST is 185 and ALT is 243. In comparison in November the AST was 31 ALT was 47. Improving with fluids * US hepatomegaly with steatosis or diffuse hepatocellular disease unable to exclude cirrhosis * Hepatitis panel pending * Lipid panel pending * Trend with labs * Recommended discontinuation Tylenol or reduce amount of daily intake (5) Anxiety: Code(s): F41.9 - Anxiety disorder, unspecified Status: Chronic Assessment and Plan: * Continue home medications of Wellbutrin, BuSpar, Seroquel (6) Hypertension: Code(s): I10 - Essential (primary) hypertension Status: Chronic Assessment and Plan: * Systolic blood pressure 120s to 150s over 80s * Continue to monitor (7) GERD (gastroesophageal reflux disease): Code(s): K21.9 - Gastro-esophageal reflux disease without esophagitis Status: Chronic Assessment and Plan: * Patient uses omeprazole at home switch to pantoprazole which is formulated (8) Hypothyroidism: Code(s): E03.9 - Hypothyroidism, unspecified Status: Chronic Assessment and Plan: * Continue levothyroxine * Check TSH WNL Plan Code status: Full code per patient DVT prophylaxis: Lovenox Stress ulcer prophylaxis: Protonix 40 daily PT/OT notes: Ambulatory Disposition: Patient admitted to the medical unit initially being treated for pneumonia and acute respiratory failure with hypoxia patient flipped into AFib RVR received IV push medication consult Cardiology and transferred patient to IMU for closer monitoring. Time Spent With Patient Time with patient: Greater than 35 minutes Subjective Date/time seen: 05/27/25 14:09 Interval history: Patient is a 65-year-old female admitted for evaluation treatment of acute respiratory failure hypoxia secondary to bilateral pneumonia in new onset AFib RVR. 05/27/2025: Assumed Care I received phone call from nurse this a.m. seeing patient's heart rate within the 140s patient denied any dizziness some mild palpitations but no worsening sh ortness of. EKG ordered showing atrial fibrillation RVR at which time I ordered 5 mg IVP metoprolol patient remained in the 120's which time I ordered Cardizem 25 mg IVP he was discussed patient unable to comfort with transfer to IMU would be a need for potential ammio or Cardizem drip. On my evaluation patient no acute distress still reporting moderate shortness of breath is when she was admitted with some mild improvement. Patient otherwise in no acute distress denied any nausea abdominal pain, chest pain. Review of Systems Review of Systems: All systems reviewed & are unremarkable except as noted in HPI and below Exam Const: General: comfortable and no acute distress Other: Obese female HENMT: Face/Nose/Sinus: Normal nares present Mouth: Yes moist mucous membranes Eyes: General: appearance normal, both eyes and all related structures Neck: Neck: supple and no JVD Lymphatic: lymphadenopathy not noted Chest: Other: Nontender to palpation Resp: Effort & Inspection: able to speak in complete sentences, Actively coughing and tachypneic Auscultation: crackles (Course) bilateral in the lower lung lynn (Right greater than left) Cardio: Heart sounds: no gallops, no murmurs and no rubs Other: Irregular irregular/I reveiwed WKG showing AFIB with a rate of 137 GI: Inspection: non-distended GI Palp: Yes Soft to palpation Auscultation: normal bowel sounds Skin: General skin exam: normal color, no rashes or lesions noted and No lesion Lesions: no lesions noted Wounds: no wounds Neuro: Speech: normal speech Motor exam (neuro): 5/5 motor strength present throughout and Normal motor muscle tone present throughout Other: No focal deficits Extrem: General: normal to inspection and no edema Psych: Mental Status: mental status grossly normal Affect: normal affect Objective Data Vital Signs Vital Signs: Vital Signs - 24 hr 05/26/25 15:02 05/26/25 16:30 05/26/25 17:30 Temperature 98.6 F Pulse Rate 105 H 104 H 108 H Respiratory Rate 22 H 20 20 Blood Pressure 122/68 136/83 131/83 Pulse Oximetry 93 94 98 Oxygen Delivery Room Air Oxygen Flow Rate 05/26/25 18:30 05/26/25 19:28 05/26/25 19:36 Temperature Pulse Rate 62 120 H 123 H Respiratory Rate 20 18 18 Blood Pressure 157/91 H Pulse Oximetry 92 Oxygen Delivery Oxygen Flow Rate 05/26/25 20:37 05/26/25 21:20 05/27/25 00:00 Temperature 99.2 F Pulse Rate 132 H 117 H Respiratory Rate 24 H Blood Pressure 140/85 Pulse Oximetry 98 90 Oxygen Delivery Oxygen Flow Rate 2 05/27/25 01:00 05/27/25 01:10 05/27/25 03:01 Temperature Pulse Rate 113 H 122 H 126 H Respiratory Rate 20 18 Blood Pressure 128/77 Pulse Oximetry 92 Oxygen Delivery Oxygen Flow Rate 05/27/25 03:05 05/27/25 03:06 05/27/25 04:00 Temperature Pulse Rate 124 H 112 H Respiratory Rate 18 Blood Pressure Pulse Oximetry 92 Oxygen Delivery Nasal Cannula Oxygen Flow Rate 4 05/27/25 04:42 05/27/25 07:01 05/27/25 07:11 Temperature 97.8 F Pulse Rate 116 H 106 H 108 H Respiratory Rate 18 18 18 Blood Pressure 113/70 Pulse Oximetry 91 Oxygen Delivery Oxygen Flow Rate 05/27/25 08:00 05/27/25 09:40 05/27/25 10:00 Temperature Pulse Rate 147 H 136 H 147 H Respiratory Rate 18 Blood Pressure Pulse Oximetry 91 Oxygen Delivery Nasal Cannula Oxygen Flow Rate 4 05/27/25 12:00 Temperature Pulse Rate 110 H Respiratory Rate Blood Pressure Pulse Oximetry Oxygen Delivery Oxygen Flow Rate Intake/Output Intake/Output: Intake & Output 05/24/25 05/25/25 05/26/25 05/27/25 23:59 23:59 23:59 23:59 Intake Total 1603.3 1020 Output Total 300 1850 Balance 1303.3 -830 Meds/Results Medications: Active Medications Generic Name Dose Route Start Last Admin Trade Name Abdiasq PRN Reason Stop Dose Admin Acetaminophen 650 mg 05/26/25 18:40 05/27/25 09:59 Acetaminophen 325 Mg Tablet PO 650 mg Q4H PRN Administration Mild Pain (1-3) or Fever Amitriptyline HCl 150 mg 05/27/25 21:00 Amitriptyline Hcl 25 Mg Tablet PO HS IRENE Azithromycin 500 mg 05/27/25 09:00 05/27/25 09:40 Azithromycin 500 Mg Tablet PO 500 mg DAILY IRENE Administration Bupropion HCl 150 mg 05/26/25 21:15 05/26/25 22:01 Bupropion Hcl Xl (24 Hr) 150 Mg Tabcr PO 150 mg HS IRENE Administration Buspirone HCl 10 mg 05/26/25 21:20 05/27/25 09:39 Buspirone Hcl 10 Mg Tablet PO 10 mg BID IRENE Administration Calcium Citrate 2 tablet 05/27/25 09:00 05/27/25 09:40 Calcium Citrate 315 Mg/Vitamin D 6.25 Mcg (250 Units) Tab PO 2 tablet BID IRENE Administration Gabapentin 800 mg 05/26/25 21:15 05/27/25 09:39 Gabapentin 400 Mg Capsule PO 800 mg Q12HR IRENE Administration Guaifenesin 1,200 mg 05/26/25 21:40 05/27/25 09:39 Guaifenesin 12 Hr 600 Mg Tabcr PO 1,200 mg Q12HR IRENE Administration Sodium Chloride 1,000 mls @ 100 mls/hr 05/26/25 21:10 05/27/25 13:13 Normal Saline Iv IV CONT Not Given .Q10H IRENE Ceftriaxone Sodium 1 gm/ 50 mls @ 100 mls/hr 05/26/25 21:30 05/27/25 09:38 Sodium Chloride IVPB 100 mls/hr DAILY IRENE Administration Ibuprofen 400 mg 05/26/25 18:40 Ibuprofen 400 Mg Tablet PO Q6H PRN Mild Pain (1-3) or Fever Levalbuterol HCl 0.63 mg 05/27/25 02:00 05/27/25 13:01 Levalbuterol Neb 1.25 Mg/3 Ml INHALATION 0.63 mg Q6HRT IRENE Administration Levothyroxine Sodium 75 mcg 05/27/25 06:30 05/27/25 06:00 Levothyroxine Sodium 75 Mcg Tablet PO 75 mcg DAILY@0630 IRENE Administration Metoprolol Tartrate 25 mg 05/27/25 21:00 Metoprolol Tartrate 25 Mg Tablet PO Q12HR IRENE Multivitamins/Minerals 1 tab 05/27/25 09:00 05/27/25 09:39 Multivitamins /C Lutein (Centrum Silver) Tablet *Bkc PO 1 tab DAILY IRENE Administration Ondansetron HCl 4 mg 05/26/25 21:08 Ondansetron Inj 4 Mg/2 Ml Vial IV PUSH Q6H PRN Nausea And Vomiting Pantoprazole Sodium 40 mg 05/27/25 09:00 05/27/25 09:39 Pantoprazole 40 Mg Tablet PO 40 mg QAM IRENE Administration Perflutren Lipid Microsphere 0 ml 05/27/25 09:56 Perflutren Lipid Microspheres 1.5 Ml Vial Diluted To 10 Ml Total Volume IV PUSH 05/30/25 09:56 ONCE PRN adequate visualization Protocol Quetiapine Fumarate 100 mg 05/26/25 21:40 05/26/25 22:01 Quetiapine Fumarate 100 Mg Tablet PO 100 mg HS IRENE Administration Quetiapine Fumarate 50 mg 05/26/25 21:40 05/26/25 22:01 Quetiapine Fumarate 25 Mg Tablet PO 50 mg HS IRENE Administration Rivaroxaban 20 mg 05/27/25 17:00 Rivaroxaban 20 Mg Tablet PO DAILY@1700 IRENE Vitamin D 125 mcg 05/27/25 09:00 05/27/25 09:39 Cholecalciferol (Vitamin D3) 125 Mcg (5,000 Units) Tablet PO 125 mcg DAILY IRENE Administration Radiology Results: ITS Impressions Chest X-Ray 05/26/25 16:55 Impression: Bilateral pneumonia Chest CTA 05/26/25 18:29 IMPRESSION: 1. Extensive bilateral airspace disease, compatible with pneumonia, right greater than left. 2: Enlarged mediastinal and right hilar lymph nodes, likely reactive. Abdomen Ultrasound 05/27/25 09:25 IMPRESSION: 1. Hepatomegaly, with steatosis and/or diffuse hepatocellular disease. 2. Cirrhosis not excluded. Labs Labs: Laboratory Results - last 24 hr 05/26/25 05/26/25 05/27/25 16:31 16:45 05:05 WBC 14.3 H RBC 3.91 L Hgb 12.7 Hct 38.5 MCV 98.5 MCH 32.5 MCHC 33.0 RDW 14.7 H Plt Count 207 MPV 9.5 Immature Gran % (Auto) Not Reportable Neut % (Auto) Not Reportable Lymph % (Auto) Not Reportable Lares % (Auto) Not Reportable Eos % (Auto) Not Reportable Baso % (Auto) Not Reportable Lymph # (Auto) Not Reportable [place]res # (Auto) Not Reportable Eos # (Auto) Not Reportable Baso # (Auto) Not Reportable Abs Immat Gran (auto) Not Reportable Absolute Neuts (auto) Not Reportable Absolute Nucleated RBC Not Reportable Total Counted 100 Neutrophils % (Manual) 84 H Band Neutrophils % 5 Lymphocytes % (Manual) 8 L Monocytes % (Manual) 3 Nucleated RBC % Not Reportable Abs Neuts (Manual) 12.72 H Abs Lymphs (Manual) 1.14 Abs Monocytes (Manual) 0.42 Platelet Estimate Adequate Schistocytes None seen Puncture Site Right brachial ABG pH 7.434 ABG pCO2 39.3 ABG pO2 60.2 L ABG PO2/FiO2 Ratio 1.67 ABG HCO3 25.7 ABG O2 Saturation 91.9 L ABG O2 Content 14.8 L ABG Base Excess 1.5 A-a Gradient 150.9 Oxyhemoglobin 90.0 Total Hemoglobin 11.7 L O2 Delivery Device Nasal cannula O2 Liters/Min 4.0 FiO2 36 Sodium 132 L Potassium 4.0 Chloride 100 Carbon Dioxide 28 Anion Gap 4 BUN 19 H Creatinine 0.67 L Estim Creat Clear Calc 93 Estimated GFR > 60 Glucose 104 Calcium 9.2 Magnesium 1.7 Total Bilirubin 1.3 AST 185 H ALT 243 H Alkaline Phosphatase 174 H Total Protein 6.4 Albumin 3.5 TSH (Reflex) Influenza A (RT-PCR) Negative Influenza B (RT-PCR) Negative RSV (RT-PCR) Negative SARS-CoV-2 RNA (RT-PCR) Negative 05/27/25 05:28 WBC 12.2 H RBC 3.45 L Hgb 11.3 L Hct 34.4 L MCV 99.7 MCH 32.8 MCHC 32.8 RDW 14.5 Plt Count 186 MPV 9.4 Immature Gran % (Auto) Not Reportable Neut % (Auto) Not Reportable Lymph % (Auto) Not Reportable Lares % (Auto) Not Reportable Eos % (Auto) Not Reportable Baso % (Auto) Not Reportable Lymph # (Auto) Not Reportable [place]res # (Auto) Not Reportable Eos # (Auto) Not Reportable Baso # (Auto) Not Reportable Abs Immat Gran (auto) Not Reportable Absolute Neuts (auto) Not Reportable Absolute Nucleated RBC Not Reportable Total Counted 100 Neutrophils % (Manual) 78 H Band Neutrophils % 7 H Lymphocytes % (Manual) 12 L Monocytes % (Manual) 3 Nucleated RBC % Not Reportable Abs Neuts (Manual) 10.37 H Abs Lymphs (Manual) 1.46 Abs Monocytes (Manual) 0.36 Platelet Estimate Adequate Schistocytes None seen Puncture Site ABG pH ABG pCO2 ABG pO2 ABG PO2/FiO2 Ratio ABG HCO3 ABG O2 Saturation ABG O2 Content ABG Base Excess A-a Gradient Oxyhemoglobin Total Hemoglobin O2 Delivery Device O2 Liters/Min FiO2 Sodium 131 L Potassium 3.6 Chloride 101 Carbon Dioxide 27 Anion Gap 3 L BUN 15 Creatinine 0.84 Estim Creat Clear Calc 79 Estimated GFR > 60 Glucose 99 Calcium 8.4 Magnesium 1.7 Total Bilirubin 1.2 AST 86 H ALT 156 H Alkaline Phosphatase 159 H Total Protein 5.5 L Albumin 2.9 L TSH (Reflex) 0.710 Influenza A (RT-PCR) Influenza B (RT-PCR) RSV (RT-PCR) SARS-CoV-2 RNA (RT-PCR) Quality VTE Prophylaxis VTE prophylaxis: pharmacologic ordered -Patient's previous records reviewed on admission -ER notes reviewed in detail on admission -discussed all findings and current treatment plan with patient/Family/POA -Consultations reviewed for recommendations -Patient's disposition for safe discharge discussed with piano case and bench assembler -radiology imaging, EKG and test results personally reviewed and interpreted unless otherwise specified Dictation performed by [employer] direct speech recognition software, therefore hoop flaring machine operator variants and typographical errors may occur. Hospitalist MIPS Advance Care Plan I have confirmed that the patient's Advanced Care Plan is present, code status is documented, or surrogate decision maker is listed in patient medical record.: Yes Medication Reconciliation I have utilized all available resources to obtain, update and review the patients current medications (includes all prescriptions, OTC, herbals, cannabis, and nutritional supplements).: Yes The patient is not eligible for med reconciliation; the patient is in a emergent medical situation where delaying treatment would jeopardize the patients health.: No
--- NOTE | 2025-05-27 17:55 | ECG_ITS ---
Test Date: 2025-05-27 18:06:27 Measurements Intervals [place] Rate: 131 P: 0 MI: 0 QRS: 44 QRSD: 83 T: 45 QT: 252 QTc: 372 Interpretive Statements ATRIAL FIBRILLATION WITH RAPID VENTRICULAR RESPONSE ABNORMAL RHYTHM ECG Compared to ECG 05/27/2025 11:10:35 No significant changes Electronically Signed On 05-27-2025 19:58:54 CDT by Elisabeth Mosher M.D.
[2025-05-27] MEDS: RIVAROXABAN 20 MG TABLET PO (18:10)
[2025-05-27 18:58] LABS: Troponin I < 0.012 ng/mL (0.000-0.034)
[2025-05-27] MEDS: buPROPion HCL XL (24 HR) 150 MG TABCR PO (20:40)
[2025-05-27] MEDS: AMITRIPTYLINE HCL 25 MG TABLET 150 MG PO (20:40)
[2025-05-27] MEDS: METOPROLOL TARTRATE 25 MG TABLET PO (20:40)
--- NOTE | 2025-05-27 21:22 | P.PNCROSS_ITS ---
Event Note Event Note Event Note: Patient admitted with acute hypoxic respiratory failure, right sided pneumonia, and now new onset AFib. Nursing staff called because patient was having right sided shoulder pain. Pain is not worse with movement or palpation. She had Tylenol around 18:00 with minimal improvement in symptoms. Is patient are so RD had ibuprofen ordered. When nursing staff went to offer the patient ibuprofen after my phone call the patient stated that she could not have ibuprofen due to history of prior gastric bypass. Ibuprofen was discontinued. His [place] was ordered for pain 4-10 and a K-pad. After reviewing the patient's imaging I suspect that the patient shoulder pain is likely referred from a pneumonia. Also given her persistent tachycardia/AFib and persistent hypoxia with sats trending downward despite 4 L nasal cannula will repeat chest x-ray was ordered. X-ray demonstrates worsening right-sided pneumonia now involving the entire EF of the right hemithorax. She did have a echo that demonstrated normal systolic function. She is worried about receiving extra fluids given that she is eating and drinking without difficulty. Subsequently I have discontinued IV fluid hydration. The patient's Coreg was stopped earlier today and switched to metoprolol for improved heart rate control. Heart rates are now down into 110 and 120 but she does not received her 1st dose of metoprolol within the last hour.
[2025-05-28] VITALS (42 sets, daily range): BP systolic 88–124; BP diastolic 59–84; PULSE 100–145; RESP 16–26; TEMP 36.4–37.1; O2SAT 86–98
[2025-05-28] MEDS: dilTIAZem 100 MG/100 ML 100 MG/100 ML BAG IV CONT (02:31)
[2025-05-28] MEDS: WATER FOR IRRIGATION, STERILE 1,000 ML BOTTLE 1000 ML (02:41)
[2025-05-28 04:39] LABS: Hematocrit 38.0 % (37.0-47.0); Hemoglobin 12.1 g/dL (12.0-15.0); Mean Corpuscular HGB Conc 31.8 g/dl (32-36); Mean Corpuscular Hemoglobin 31.8 pg (26-34); Mean Corpuscular Volume 100.0 fl (80-100); Platelet Count Result 199 k/mm3 (150-375); Red Blood Count 3.80 M/mm3 (4.2-5.4); White Blood Count 9.2 K/mm3 (4.5-10.0)
[2025-05-28 05:05] LABS: Alanine Aminotransferase 118 U/L (6-35); Albumin Level 3.2 g/dL (3.5-5.1); Alkaline Phosphatase 166 U/L (38-126); Anion Gap 6 mmol/L (4-12); Aspartate Amino Transferase 49 U/L (14-36); Bilirubin,Total 0.9 mg/dL (0.2-1.3); Blood Urea Nitrogen 13 mg/dL (7-17); Calcium 8.7 mg/dL (8.4-10.2); Carbon Dioxide 28 mmol/L (22-30); Chloride 101 mmol/L (98-107); Cholesterol 162 mg/dL (0-200); Estimated CRCL calculation 80 ml/min; Estimated Glomerular Filt Rate > 60; Glucose 90 mg/dL (65-110); HDL Direct 32 mg/dL; Magnesium 1.8 mg/dL (1.6-2.3); Potassium 3.4 mmol/L (3.4-5.0); Sodium 135 mmol/L (137-145); Total Protein 6.2 g/dL (6.3-8.2); Triglycerides 130 mg/dL (<150)
[2025-05-28 05:27] LABS: Hepatitis B Surface Antigen Negative (Negative)
[2025-05-28 05:33] LABS: HAV RESULT Negative (Negative); Hepatitis B Core IgM Result Negative (Negative)
[2025-05-28] MEDS: LEVOTHYROXINE SODIUM 75 MCG TABLET PO (06:28)
[2025-05-28 06:32] LABS: Alveolar/Arterial O2 Gradient 475.6 mmHg; Carboxyhemoglobin 1.1 % THb (0-2.0); Fractional Inspired Oxygen 80 %; HCO3 ABG 25.3 mEq/l (22.0-26.0); Methemoglobin ABG 0.3 %THb (0-1.5); Oxygen Content ABG 14.7 %vol (16.0-22.0); Oxygen Saturation ABG 89.9 % (95.0-100.0); PCO2 ABG 37.9 mmHg (35.0-45.0); PO2 ABG 55.0 mmHg (80.0-100.0); PO2 FiO2 Ratio Arterial Blood 0.69 %; Reduced Hemoglobin 10.8 %THb (0-5.0)
[2025-05-28] MEDS: HYDROcodone/acetaminophen (*CRX) 5-325 MG TABLET 1 TAB PO ×3 (06:32→20:28)
[2025-05-28 06:33] LABS: Site Drawn RIGHT BRACHIAL
[2025-05-28 06:34] LABS: Liters per Minute 10.0 LPM
--- NOTE | 2025-05-28 08:46 | P.PNIM_ITS ---
Progress Note: A&P Assessment and Plan (1) Acute respiratory failure with hypoxia: Code(s): J96.01 - Acute respiratory failure with hypoxia Status: Acute Assessment and Plan: Patient on admission requiring 4 L supplemental oxygen to maintain 92% patient does not wear oxygen at home likely secondary to her underlying pneumonia as well AFib with RVR. * Will continue to wean oxygen as tolerated * CTA chest with no PE * Nebulizers scheduled * Worsening respiratory status overnight currently on High flow 30/65 FIO2 (2) Community acquired pneumonia: Code(s): J18.9 - Pneumonia, unspecified organism Status: Acute Assessment and Plan: CT showing bilateral pneumonia and elevated wbc's with acute respiratory failure with hypoxia. Patient with no HX of COPD, ILD or recurrent PNA * IV Rocephin and azithromycin PO daily * Supplemental oxygen Worsening respiratory status overnight currently on High flow 30/65 FIO2 * Ipratropium 0.5 * Blood cultures NGTD * Obtain sputum culture * Incentive spirometer * Guaifenesin 1200 mg BID ordered * added Pulmicort * I reviewed F/U CXR with worsening PNA * consult pulmonology appreciate any further recommendations * MRSA Negative * Pulmonology added Hydrocortisone IVP 50mg Q6hr for severe PNA (3) Atrial fibrillation with rapid ventricular response: Code(s): I48.91 - Unspecified atrial fibrillation Status: Acute Assessment and Plan: Patient with new onset AFib RVR rates in the 140s no previous history. Patient reports she has even had a Holter monitor in the past that showed no atrial fibrillation likely secondary to patient's infection and hypoxia * Patient received 1 time dose IVP metoprolol * Remain low 120s gave a single dose 25 mg Cardizem IVP with improvement but had not converted * Cardiology was consulted * Echocardiogram: LVEF 65-70 % AFIB * Patient transition from Cardizem drip to oral Cardizem metoprolol has been discontinued after reports of reaction to metoprolol from patient rates in the low 100s * Xarelto 15mg due to interaction with Cardizem per Cardiology (4) Transaminitis: Code(s): R74.01 - Elevation of levels of liver transaminase levels Status: Acute Assessment and Plan: Spoke with patient regarding her elevated liver enzymes which time she did hurt she has been taking a of Tylenol due to her to the pain could be underlying sebastian but also showed some fatty liver disease and cannot rule cirrhosis on the ultrasound patient reports she does not drink alcohol * AST is 185 and ALT is 243. In comparison in November the AST was 31 ALT was 47. Improving with fluids * US hepatomegaly with steatosis or diffuse hepatocellular disease unable to exclude cirrhosis * Hepatitis panel pending * Lipid panel pending * Trend with labs * Recommended discontinuation Tylenol or reduce amount of daily intake (5) Anxiety: Code(s): F41.9 - Anxiety disorder, unspecified Status: Chronic Assessment and Plan: * Continue home medications of Wellbutrin, BuSpar, Seroquel (6) Hypertension: Code(s): I10 - Essential (primary) hypertension Status: Chronic Assessment and Plan: Soft BP 's * Continue to monitor resume medications as BP tolerates (7) GERD (gastroesophageal reflux disease): Code(s): K21.9 - Gastro-esophageal reflux disease without esophagitis Status: Chronic Assessment and Plan: * Patient uses omeprazole at home switch to pantoprazole which is formulated (8) Hypothyroidism: Code(s): E03.9 - Hypothyroidism, unspecified Status: Chronic Assessment and Plan: * Continue levothyroxine * Check TSH WNL Plan Code status: Full code per patient DVT prophylaxis: Lovenox Stress ulcer prophylaxis: Protonix 40 daily PT/OT notes: Ambulatory Disposition: Patient admitted to the medical unit initially being treated for pneumonia and acute respiratory failure with hypoxia patient remains in AFib but rate better controlled transition to oral Cardizem insert relative initiated however patient has required more oxygen support with high-flow pulmonology consulted. Patient's plan is to return to home at discharge when medically stable. Time Spent With Patient Time with patient: Greater than 35 minutes Subjective Date/time seen: 05/28/25 08:46 Interval history: Patient is a 65-year-old female admitted for evaluation treatment of acute respiratory failure hypoxia secondary to bilateral pneumonia in new onset AFib RVR. 05/28/2025: Assumed Care Patient continued to have heart rates in the 130s 140s overnight and was placed on a Cardizem drip for rate control, patient with worsening respiratory status placed on high-flow nasal cannula flow rate 30 FiO2 65. Patient reports feeling a little worse today with her breathing but reports palpatations have improved. Patient still with significant RT shoulder pain no trauma or HX previous problems likely secondary to aggressive/productive cough spells she was reporting. Review of Systems Review of Systems: All systems reviewed & are unremarkable except as noted in HPI and below Exam Const: General: comfortable and no acute distress Other: Obese female HENMT: Face/Nose/Sinus: Normal nares present Mouth: Yes moist mucous membranes Eyes: General: appearance normal, both eyes and all related structures Neck: Neck: supple and no JVD Lymphatic: lymphadenopathy not noted Chest: Other: Nontender to palpation Resp: Effort & Inspection: abnormal respiratory effort (Increased effort), able to speak in complete sentences, Actively coughing and tachypneic Auscultation: crackles (Course) bilateral in the lower lung lynn (Right greater than left) Cardio: Rate: tachycardic Rhythm: regular rhythm Heart sounds: no gallops, no murmurs and no rubs Other: Irregular irregular/I reveiwed WKG showing AFIB with a rate of 137 GI: Inspection: non-distended Auscultation: normal bowel sounds Skin: General skin exam: normal color, no rashes or lesions noted and No lesion Lesions: no lesions noted Wounds: no wounds Neuro: Speech: normal speech Motor exam (neuro): 5/5 motor strength present throughout and Normal motor muscle tone present throughout Other: No focal deficits Extrem: General: normal to inspection and no edema Psych: Mental Status: mental status grossly normal Affect: normal affect Objective Data Vital Signs Vital Signs: Vital Signs - 24 hr 05/27/25 09:40 05/27/25 10:00 05/27/25 12:00 Temperature Pulse Rate 136 H 147 H 110 H Respiratory Rate Blood Pressure Pulse Oximetry Oxygen Delivery Oxygen Flow Rate Fraction of Inspired Oxygen 05/27/25 12:00 05/27/25 16:00 05/27/25 16:00 Temperature Pulse Rate 131 H 123 H 123 H Respiratory Rate 17 16 Blood Pressure Pulse Oximetry 98 96 Oxygen Delivery Nasal Cannula Nasal Cannula Oxygen Flow Rate 4 4 Fraction of Inspired Oxygen 05/27/25 16:23 05/27/25 20:00 05/27/25 20:00 Temperature 98.8 F 98.8 F Pulse Rate 115 H 145 H Respiratory Rate 20 16 Blood Pressure 111/74 114/67 Pulse Oximetry 97 94 90 Oxygen Delivery Nasal Cannula Oxygen Flow Rate 4 Fraction of Inspired Oxygen 05/27/25 20:00 05/27/25 20:10 05/27/25 20:14 Temperature Pulse Rate 122 H 134 H 134 H Respiratory Rate 18 Blood Pressure Pulse Oximetry 90 Oxygen Delivery Nasal Cannula Oxygen Flow Rate 4 Fraction of Inspired Oxygen 05/27/25 20:26 05/27/25 20:40 05/27/25 22:00 Temperature Pulse Rate 125 H 145 H 120 H Respiratory Rate 18 Blood Pressure Pulse Oximetry Oxygen Delivery Oxygen Flow Rate Fraction of Inspired Oxygen 05/28/25 00:00 05/28/25 00:00 05/28/25 00:00 Temperature 97.6 F Pulse Rate 124 H 123 H Respiratory Rate 20 Blood Pressure 116/64 Pulse Oximetry 92 94 Oxygen Delivery Nasal Cannula Oxygen Flow Rate 4 Fraction of Inspired Oxygen 05/28/25 01:52 05/28/25 01:54 05/28/25 02:00 Temperature Pulse Rate 121 H 122 H 128 H Respiratory Rate 18 18 Blood Pressure Pulse Oximetry Oxygen Delivery Oxygen Flow Rate Fraction of Inspired Oxygen 05/28/25 02:22 05/28/25 02:23 05/28/25 02:31 Temperature Pulse Rate 131 H 130 H Respiratory Rate Blood Pressure 113/65 113/65 Pulse Oximetry 90 Oxygen Delivery Nasal Cannula Oxygen Flow Rate 5 Fraction of Inspired Oxygen 05/28/25 02:42 05/28/25 03:03 05/28/25 04:00 Temperature Pulse Rate 133 H Respiratory Rate Blood Pressure Pulse Oximetry 91 91 Oxygen Delivery High Flow Nasal Cannula High Flow Nasal Cannula Oxygen Flow Rate 6 6 Fraction of Inspired Oxygen 05/28/25 04:00 05/28/25 04:00 05/28/25 05:35 Temperature 98.5 F Pulse Rate 128 H 128 H Respiratory Rate 16 Blood Pressure 124/65 124/65 Pulse Oximetry 91 90 Oxygen Delivery High Flow Nasal Cannula Oxygen Flow Rate 10 Fraction of Inspired Oxygen 05/28/25 05:38 05/28/25 05:50 05/28/25 06:00 Temperature Pulse Rate 136 H 136 H 128 H Respiratory Rate 22 H Blood Pressure 115/65 115/65 Pulse Oximetry 86 L Oxygen Delivery Oxygen Flow Rate Fraction of Inspired Oxygen 05/28/25 06:23 05/28/25 06:25 05/28/25 06:35 Temperature Pulse Rate 130 H 128 H Respiratory Rate Blood Pressure Pulse Oximetry 92 93 93 Oxygen Delivery High Flow Therapy with Na High Flow Therapy with Na Oxygen Flow Rate 30 30 Fraction of Inspired Oxygen 65 65 05/28/25 08:00 Temperature 98.5 F Pulse Rate 128 H Respiratory Rate 26 H Blood Pressure 115/63 Pulse Oximetry 95 Oxygen Delivery Oxygen Flow Rate Fraction of Inspired Oxygen Intake/Output Intake/Output: Intake & Output 05/25/25 05/26/25 05/27/25 05/28/25 23:59 23:59 23:59 23:59 Intake Total 1603.3 1460 516.6 Output Total 300 1850 Balance 1303.3 -390 516.6 Meds/Results Medications: Active Medications Generic Name Dose Route Start Last Admin Trade Name Freq PRN Reason Stop Dose Admin Acetaminophen 650 mg 05/26/25 18:40 05/27/25 09:59 Acetaminophen 325 Mg Tablet PO 650 mg Q4H PRN Administration Mild Pain (1-3) or Fever Hydrocodone Bitart/Acetaminophen 1 tab 05/27/25 20:59 05/28/25 06:32 Hydrocodone/Acetaminophen (*Crx) 5-325 Mg Tablet PO 1 tab Q6H PRN Administration Pain Rated 4-10 Amitriptyline HCl 150 mg 05/27/25 21:00 05/27/25 20:40 Amitriptyline Hcl 25 Mg Tablet PO 150 mg HS IRENE Administration Azithromycin 500 mg 05/27/25 09:00 05/27/25 09:40 Azithromycin 500 Mg Tablet PO 500 mg DAILY IRENE Administration Bupropion HCl 150 mg 05/26/25 21:15 05/27/25 20:40 Bupropion Hcl Xl (24 Hr) 150 Mg Tabcr PO 150 mg HS IRENE Administration Buspirone HCl 10 mg 05/26/25 21:20 05/27/25 18:10 Buspirone Hcl 10 Mg Tablet PO 10 mg BID IRENE Administration Calcium Citrate 2 tablet 05/27/25 09:00 05/27/25 18:10 Calcium Citrate 315 Mg/Vitamin D 6.25 Mcg (250 Units) Tab PO 2 tablet BID IRENE Administration Gabapentin 800 mg 05/26/25 21:15 05/27/25 20:40 Gabapentin 400 Mg Capsule PO 800 mg Q12HR IRENE Administration Guaifenesin 1,200 mg 05/26/25 21:40 05/27/25 20:40 Guaifenesin 12 Hr 600 Mg Tabcr PO 1,200 mg Q12HR IRENE Administration Ceftriaxone Sodium 1 gm/ 50 mls @ 100 mls/hr 05/26/25 21:30 05/27/25 09:38 Sodium Chloride IVPB 100 mls/hr DAILY IRENE Administration Diltiazem HCl 100 mg in 100 mls @ 10 mls/hr 05/28/25 02:20 05/28/25 05:50 Cardizem 100 Mg/100 Ml IV CONT 10 mg/hr .Q10H IRENE 10 mls/hr 10 MG/HR Infusion Levalbuterol HCl 0.63 mg 05/27/25 02:00 05/28/25 01:53 Levalbuterol Neb 1.25 Mg/3 Ml INHALATION 0.63 mg Q6HRT IRENE Administration Levothyroxine Sodium 75 mcg 05/27/25 06:30 05/28/25 06:28 Levothyroxine Sodium 75 Mcg Tablet PO 75 mcg DAILY@0630 IRENE Administration Metoprolol Tartrate 25 mg 05/27/25 21:00 05/27/25 20:40 Metoprolol Tartrate 25 Mg Tablet PO 25 mg Q12HR IRENE Administration Multivitamins/Minerals 1 tab 05/27/25 09:00 05/27/25 09:39 Multivitamins /C Lutein (Centrum Silver) Tablet *Bkc PO 1 tab DAILY IRENE Administration Ondansetron HCl 4 mg 05/26/25 21:08 Ondansetron Inj 4 Mg/2 Ml Vial IV PUSH Q6H PRN Nausea And Vomiting Pantoprazole Sodium 40 mg 05/27/25 09:00 05/27/25 09:39 Pantoprazole 40 Mg Tablet PO 40 mg QAM IRENE Administration Perflutren Lipid Microsphere 0 ml 05/27/25 09:56 Perflutren Lipid Microspheres 1.5 Ml Vial Diluted To 10 Ml Total Volume IV PUSH 05/30/25 09:56 ONCE PRN adequate visualization Protocol Quetiapine Fumarate 100 mg 05/26/25 21:40 05/27/25 20:39 Quetiapine Fumarate 100 Mg Tablet PO 100 mg HS IRENE Administration Quetiapine Fumarate 50 mg 05/26/25 21:40 05/27/25 20:39 Quetiapine Fumarate 25 Mg Tablet PO 50 mg HS IRENE Administration Rivaroxaban 20 mg 05/27/25 17:00 05/27/25 18:10 Rivaroxaban 20 Mg Tablet PO 20 mg DAILY@1700 IRENE Administration Vitamin D 125 mcg 05/27/25 09:00 05/27/25 09:39 Cholecalciferol (Vitamin D3) 125 Mcg (5,000 Units) Tablet PO 125 mcg DAILY IRENE Administration Radiology Results: ITS Impressions Chest CTA 05/26/25 18:29 IMPRESSION: 1. Extensive bilateral airspace disease, compatible with pneumonia, right greater than left. 2: Enlarged mediastinal and right hilar lymph nodes, likely reactive. Abdomen Ultrasound 05/27/25 09:25 IMPRESSION: 1. Hepatomegaly, with steatosis and/or diffuse hepatocellular disease. 2. Cirrhosis not excluded. Chest X-Ray 05/27/25 21:20 Impression: 1: Interval progression of right-sided airspace disease, compatible with pneumonia. Labs Labs: Laboratory Results - last 24 hr 05/27/25 05/28/25 05/28/25 18:28 04:07 06:02 WBC 9.2 RBC 3.80 L Hgb 12.1 Hct 38.0 MCV 100.0 MCH 31.8 MCHC 31.8 L RDW 14.4 Plt Count 199 MPV 9.9 Puncture Site Right brachial ABG pH 7.442 ABG pCO2 37.9 ABG pO2 55.0 L ABG PO2/FiO2 Ratio 0.69 ABG HCO3 25.3 ABG O2 Saturation 89.9 L ABG O2 Content 14.7 L ABG Base Excess 1.3 A-a Gradient 475.6 Oxyhemoglobin 87.8 L* Carboxyhemoglobin 1.1 Methemoglobin 0.3 Reduced Hemoglobin 10.8 H Total Hemoglobin 11.9 L O2 Delivery Device High flow nasal jason O2 Liters/Min 10.0 FiO2 80 Sodium 135 L Potassium 3.4 Chloride 101 Carbon Dioxide 28 Anion Gap 6 BUN 13 Creatinine 0.82 Estim Creat Clear Calc 80 Estimated GFR > 60 Glucose 90 Calcium 8.7 Magnesium 1.8 Total Bilirubin 0.9 AST 49 H ALT 118 H Alkaline Phosphatase 166 H Troponin I < 0.012 Total Protein 6.2 L Albumin 3.2 L Triglycerides 130 Cholesterol 162 LDL Cholesterol Direct 92 HDL Direct 32 Hepatitis A IgM Ab Negative Hep Bs Antigen Negative Hep B Core IgM Ab Negative Hepatitis C Ab Screen Negative Quality VTE Prophylaxis VTE prophylaxis: pharmacologic ordered -Patient's previous records reviewed on admission -ER notes reviewed in detail on admission -discussed all findings and current treatment plan with patient/Family/POA -Consultations reviewed for recommendations -Patient's disposition for safe discharge discussed with family caseworker -radiology imaging, EKG and test results personally reviewed and interpreted unless otherwise specified Dictation performed by [employer] direct speech recognition software, therefore furnace combustion analyst variants and typographical errors may occur. Hospitalist MIPS Advance Care Plan I have confirmed that the patient's Advanced Care Plan is present, code status is documented, or surrogate decision maker is listed in patient medical record.: Yes Medication Reconciliation I have utilized all available resources to obtain, update and review the patients current medications (includes all prescriptions, OTC, herbals, cannabis, and nutritional supplements).: Yes The patient is not eligible for med reconciliation; the patient is in a emergent medical situation where delaying treatment would jeopardize the patients health.: No
[2025-05-28] MEDS: cefTRIAXone 1 GM in SODIUM CHLORIDE 0.9% IV 50 ML 100 ML IVPB (09:19)
[2025-05-28] MEDS: CALCIUM CITRATE 315 MG/VITAMIN D 6.25 MCG (250 UNITS) TAB 2 TABLET PO ×2 (09:49→16:15)
[2025-05-28] MEDS: guaiFENesin 12 HR 600 MG TABCR 1200 MG PO ×2 (09:50→20:18)
[2025-05-28] MEDS: MULTIVITAMINS /C LUTEIN (CENTRUM SILVER) TABLET *BKC 1 TAB PO (09:50)
[2025-05-28] MEDS: AZITHROMYCIN 500 MG TABLET PO (09:50)
[2025-05-28] MEDS: CHOLECALCIFEROL (VITAMIN D3) 125 MCG (5,000 UNITS) TABLET PO (09:50)
[2025-05-28] MEDS: PANTOPRAZOLE 40 MG TABLET PO (09:50)
[2025-05-28] MEDS: GABAPENTIN 400 MG CAPSULE 800 MG PO ×2 (09:50→20:17)
[2025-05-28] MEDS: METOPROLOL TARTRATE 25 MG TABLET PO (09:50)
--- NOTE | 2025-05-28 10:28 | PM.CNPUL ---
Assessment and Plan Assessment and plan (1) Community acquired pneumonia: Code(s): J18.9 - Pneumonia, unspecified organism Status: Acute Assessment and Plan: Patient presents with 36 hours of chills, rigors, shortness of breath, rattling in the chest, shortness of breath with a leukocytosis 14.3, bandemia 5%, CT angiogram of the chest with no PE but extensive patchy consolidative ground-glass infiltrates throughout the entire right lung, left upper lobe and left lower lobe and now with worsening oxygenation requiring Airvo 30 L and 65% FiO2. Her CRP is 29.5. Initial COVID, RSV, influenza RT PCR and assay negative. MRSA RT PCR negative today. patient has a severe community-acquired pneumonia. She is afebrile, she feels better than she did when she presented, no longer has hemoptysis, leukocytosis has resolved. 05/28/25: Plan: At this time I will continue ceftriaxone and change the azithromycin to IV. She has severe community-acquired pneumonia as she is requiring high-flow nasal cannula and her CRP is 29.5. Her pneumonia severity index score is 50. I will initiate hydrocortisone 50 mg IV q.6 hours. Patient has a tachy arrhythmia and I will discontinue beta agonist. I will continue ipratropium as she says the nebulized treatments were helping her. I will continue budesonide 500 mcg q.12 hours. I will repeat COVID, influenza, RSV RT PCR assay, send respiratory pathogen panel, urine for Legionella antigen, urine for pneumococcal antigen, check serum mycoplasma IgM levels on 05/28/2025. If the patient should decompensate will consider her a ceftriaxone and azithromycin failure and change her to meropenem and Levaquin. Discussed with Loni Pettit, will follow with you. (2) Acute respiratory failure with hypoxia: Code(s): J96.01 - Acute respiratory failure with hypoxia Status: Acute Assessment and Plan: Patient initially on no oxygen at home with no respiratory limitations. She has had 2 ABGs the last on 10 L with pH of 7.44/38/55. There is no evidence of hypercarbic respiratory failure. 05/26 16:00 room air, sats 93% 05/26 21:00 4 L NC, sats 92% 05/27 08:00 4 L NC, sats 91% 05/27 20:00 4 L NC, sats 90% 05/28 05:30 10 L NC, sats 86%, ABG 7.44/38.55 05/28 6:15 Airvo 30 L, 65%, sats 93% 05/28 11:00 Airvo 30 L, 65%, sats 95% goal saturation 90-94%, adjust oxygen accordingly. History of Present Illness History of Present Illness Consult date: 05/28/25 Chief complaint: Pneumonia, hypoxia Narrative: 05/28/25 This is a new pulmonary consult for pneumonia with hypoxemic respiratory failure. 65-year-old with a history of hypertension, gastric bypass with revision in 2012, GERD, gout, hypothyroidism, neuropathy, chronic knee pain. Patient has no history of asthma, COPD, recurrent pneumonias. Patient is a never smoker. She was exposed to secondhand smoke from both of her parents and from [id number]. 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 At baseline the patient tells me she can walk 1 and half blocks but has to stop for knee pain rather than any breathing issues. She has no respiratory limitations in her activities of daily living. She is on no home O2. Patient is in the process of extensive dental work and on 05/24/2025 she had 6 teeth pulled under local anesthesia. Prior to this procedure and after this procedure she had no breathing problems. She was in pain but had no cough or phlegm production. She slept that night. On 05/25/2025 the patient woke up and had rattling in her chest, chills, rigors, shortness of breath. Patient states her phlegm was read and could have been blood. She was fatigued. She went to bed and slept all night and most of the morning on 05/26/2025. 05/26/25: She woke up with worse headache of her life and presented to the emergency department. In the emergency department her blood pressure was 122/68, heart rate 105, respirations 22, room air saturations 93%. Her weight was 113.5 she was afebrile. White blood cell count 14.3, bands were 5%, no eosinophils, creatinine 0.67, COVID, influenza, RSV RT PCR assay negative. Chest x-ray with bilateral pneumonia. CT angiogram of the chest with no PE, patchy ground-glass consolidative infiltrates throughout all the right lung, lasts pronounced in the left upper lobe and left lower lobe. Patient was placed on Rocephin and azithromycin. 05/27/2025. Patient had mild improvement. At 8:00 a.m. she was on 4 L nasal cannula saturations 91%. Her white blood cell count was 12.2 she was afebrile. ABG on 4 L was 7.43/39/60. Patient gone into AFib RVR and was placed on metoprolol and Xarelto per Cardiology. At 8:00 p.m. patient was on 4 L nasal cannula saturations 90%. 05/28/2025. Overall patient feels a little worse than yesterday she is more tired, she states that she has 25% back to her normal and improved since admission. She has more coughing today but less phlegm. She has no hemoptysis and yellow phlegm. If 5:30 a.m. she was on 10 L nasal cannula with desats and an ABG of 7.44/38/55 and was placed on Airvo 30 L and 65% with saturations 95%. white blood cell count is 9.2, creatinine is 0.82, CRP is 29.5, BNP is 4520, procalcitonin is 1.6. chest x-ray today unchanged compared to 05/27/2025 with diffuse infiltrates throughout the lower right lung field with decreased lung volumes on the right minimal infiltrates in the left base. DATA: 05/27/25: Echo Summary Summary 1. Complete two-dimensional, color flow and Doppler transthoracic echocardiogram is performed. 2. Small amount of mitral and tricuspid regurgitation. 3. Otherwise structurally normal appearing heart. 4. Atrial fibrillation. Left Ventricle Left ventricular chamber dimension is normal. Left ventricular systolic function is normal, estimated at 65-70. Right Ventricle Right ventricular chamber dimension is normal. Left Atria Left atrial chamber dimension is normal. Right Atria Right atrial chamber dimension is normal. Tricuspid peak gradient 26. 05/27/2025: ULTRASOUND ABDOMEN LIMITED (RIGHT UPPER QUADRANT) Clinical History: Transaminitis Comparison: CT chest 1 day prior Technique: Right upper quadrant sonography Findings: Liver: Normal size. Normal echotexture. No intrahepatic biliary ductal dilatation. Normal hepatopedal flow main portal vein. Micronodular contour. Common Duct: 7 mm. Gallbladder: Removed. Pancreas: Obscured by bowel gas. Right kidney: Unremarkable. Retrohepatic IVC: Unremarkable. IMPRESSION: 1. Hepatomegaly, with steatosis and/or diffuse hepatocellular disease. 2. Cirrhosis not excluded. 05/26/2025: EXAMINATION: CTA chest PE protocol DATE: 05/26/2025 18:29 CDT INDICATION: Pneumonia. Hemoptysis. TECHNIQUE: Computed tomographic angiography (CTA) of the chest was performed with 100 mL Omnipaque-350 intravenous contrast. The dose-length product was 885.28 mGy-cm. Maximum intensity projection 3D-reconstructions of the aorta and other arteries were constructed by the technologist on a separate workstation. COMPARISON: Chest x-ray dated 05/26/2025. FINDINGS: Study is technically adequate without evidence for pulmonary embolism. There is right hilar and subcarinal lymphadenopathy, likely reactive. There are bilateral breast implants. No significant pleural or pericardial effusion. There is extensive bilateral airspace consolidation, more so on the right, consistent with pneumonia. Airspace disease is most confluent in the right lower lobe. No endobronchial lesions. No pneumothorax. No significant pleural or pericardial effusion. There is surgical changes in the left upper abdomen. IMPRESSION: 1. Extensive bilateral airspace disease, compatible with pneumonia, right greater than left. 2: Enlarged mediastinal and right hilar lymph nodes, likely reactive. 12/15/2024: CHEST RADIOGRAPH CLINICAL HISTORY: fall . COMPARISON: 10/23/2021 TECHNIQUE: Single portable view of the chest. FINDINGS Significant elevation of the right hemidiaphragm with adjacent compressive atelectasis. The remainder of the lungs are clear. Dorsal column stimulator device is noted. The remainder of the cardiomediastinal silhouette is otherwise unremarkable. IMPRESSION: Elevation of the right hemidiaphragm with adjacent compressive atelectasis. The remainder of the lungs are clear. Review of Systems Constitutional: Constitutional: Reports no additional constitutional complaints Eyes: Eyes: Reports no additional eye complaints ENT: Reports system reviewed and no additional complaints, except as documented Cardiovascular: Cardiovascular: Reports no additional cardiovascular complaints Respiratory: Respiratory: Reports no additional respiratory complaints Gastrointestinal: Gastrointestinal: Reports no additional gastrointestinal complaints Musculoskeletal: Musculoskeletal: Reports no additional musculoskeletal complaints Neurologic: Reports system reviewed and no additional complaints, except as documented Psychiatric: Psychiatric: Reports no additional psychiatric complaints Endocrine: Endocrine: Reports no additional endocrine complaints Hematologic/Lymphatic: Hematologic/Lymphatic: Reports no additional hematologic/lymphatic complaints Allergic/Immunologic: Allergic/Immunologic: Reports no additional allergic/immunologic complaints [facility] Past Medical History Medical History Sinus tachycardia Transaminitis Hypothyroidism Community acquired pneumonia Teeth decayed BMI greater than 40 Sprain of left foot Degenerative arthritis of left knee Achilles tendinitis, left leg Fracture of distal end of left fibula Patellofemoral arthralgia of both knees Peripheral neuropathy Metatarsalgia, left foot Encounter for postoperative care Cough Left foot pain Metatarsal bone fracture Dermatillomania Arthritis Wears glasses Weight gain History of MRSA infection Depression Anxiety Anemia GERD (gastroesophageal reflux disease) Hypertension Surgical History Surgical History History of bunionectomy History of melanoma excision History of breast lift H/O lumbosacral spine surgery H/O gastric bypass History of hip surgery Hx of cholecystectomy Family History Family History Mother Heart disease Father Esophageal cancer Sibling Diabetes mellitus Other Arthritis Depression High cholesterol Hypertension Neuropathy Social History Social History Smoking status: Never smoker Alcohol intake: former Alcohol use details: 2/MONTH Substance use: never Substance use type: does not use Lack of Transportation: No Lack of Food: Never True Current Housing: I Have Housing Concerned About Future Housing: No Difficulty Paying Gas/Electric Bills: No Difficulty Paying for Meds: No Currently Unemployed: No Education: High School Diploma/GED Difficulty w/ Childcare or Family Care: No Living arrangements: alone Gender identity (if verbalized by the patient): Female Sexual Orientation (if Verbalized by the Patient): Straight or Heterosexual Spiritual care concerns: No Meds Home Medications and Allergies Home Medications ?Medication ?Instructions ?Recorded ?Confirmed ?Type omeprazole 20 mg capsule,delayed 20 mg PO DAILY 02/10/21 05/26/25 History release quetiapine 100 mg tablet 100 mg PO HS 02/10/21 05/26/25 History quetiapine 50 mg tablet 50 mg PO DAILY 02/10/21 05/26/25 History calcium citrate 600 mg PO BID 02/13/21 05/26/25 History cholecalciferol (vitamin D3) 125 125 mcg PO DAILY 02/13/21 05/26/25 History mcg (5,000 unit) capsule carvedilol 6.25 mg tablet 6.25 mg PO BID 05/17/21 05/26/25 History buspirone 10 mg tablet 10 mg PO .BID 06/10/21 05/26/25 History gabapentin 800 mg tablet 800 mg PO QID 11/27/21 05/26/25 History bupropion HCl 300 mg 24 hr tablet, 150 mg PO .HS 12/15/24 05/26/25 History extended release levothyroxine 75 mcg tablet 75 mcg PO DAILY 12/15/24 05/26/25 History (Synthroid) multivitamin-ferrous 1 tablet PO DAILY 12/15/24 05/26/25 History fumarate-folic acid 18 mg-400 mcg tablet (Centrum) amitriptyline 150 mg tablet 150 mg PO DAILY 05/26/25 05/26/25 History Allergies Allergy/AdvReac Type Severity Reaction Status Date / Time clindamycin Allergy Severe Itching Verified 05/26/25 20:47 hydromorphone (From Dilaudid) Allergy Severe Itching Verified 05/26/25 20:47 morphine Allergy Severe Itching Verified 05/26/25 20:47 tramadol AdvReac Severe Palpitation Verified 05/26/25 20:47 s Vital Signs Vital Signs - 24 hr 05/27/25 12:00 05/27/25 12:00 05/27/25 16:00 Temperature Pulse Rate 110 H 131 H 123 H Respiratory Rate 17 16 Blood Pressure Pulse Oximetry 98 96 Oxygen Delivery Nasal Cannula Nasal Cannula Oxygen Flow Rate 4 4 Fraction of Inspired Oxygen 05/27/25 16:00 05/27/25 16:23 05/27/25 20:00 Temperature 37.1 C 37.1 C Pulse Rate 123 H 115 H 145 H Respiratory Rate 20 16 Blood Pressure 111/74 114/67 Pulse Oximetry 97 94 Oxygen Delivery Oxygen Flow Rate Fraction of Inspired Oxygen 05/27/25 20:00 05/27/25 20:00 05/27/25 20:10 Temperature Pulse Rate 122 H 134 H Respiratory Rate 18 Blood Pressure Pulse Oximetry 90 Oxygen Delivery Nasal Cannula Oxygen Flow Rate 4 Fraction of Inspired Oxygen 05/27/25 20:14 05/27/25 20:26 05/27/25 20:40 Temperature Pulse Rate 134 H 125 H 145 H Respiratory Rate 18 Blood Pressure Pulse Oximetry 90 Oxygen Delivery Nasal Cannula Oxygen Flow Rate 4 Fraction of Inspired Oxygen 05/27/25 22:00 05/28/25 00:00 05/28/25 00:00 Temperature 36.4 C Pulse Rate 120 H 124 H Respiratory Rate 20 Blood Pressure 116/64 Pulse Oximetry 92 94 Oxygen Delivery Nasal Cannula Oxygen Flow Rate 4 Fraction of Inspired Oxygen 05/28/25 00:00 05/28/25 01:52 05/28/25 01:54 Temperature Pulse Rate 123 H 121 H 122 H Respiratory Rate 18 Blood Pressure Pulse Oximetry Oxygen Delivery Oxygen Flow Rate Fraction of Inspired Oxygen 05/28/25 02:00 05/28/25 02:22 05/28/25 02:23 Temperature Pulse Rate 128 H 131 H Respiratory Rate 18 Blood Pressure 113/65 Pulse Oximetry 90 Oxygen Delivery Nasal Cannula Oxygen Flow Rate 5 Fraction of Inspired Oxygen 05/28/25 02:31 05/28/25 02:42 05/28/25 03:03 Temperature Pulse Rate 130 H Respiratory Rate Blood Pressure 113/65 Pulse Oximetry 91 91 Oxygen Delivery High Flow Nasal Cannula High Flow Nasal Cannula Oxygen Flow Rate 6 6 Fraction of Inspired Oxygen 05/28/25 04:00 05/28/25 04:00 05/28/25 04:00 Temperature 36.9 C Pulse Rate 133 H 128 H 128 H Respiratory Rate 16 Blood Pressure 124/65 124/65 Pulse Oximetry 91 Oxygen Delivery Oxygen Flow Rate Fraction of Inspired Oxygen 05/28/25 05:35 05/28/25 05:38 05/28/25 05:50 Temperature Pulse Rate 136 H 136 H Respiratory Rate 22 H Blood Pressure 115/65 115/65 Pulse Oximetry 90 86 L Oxygen Delivery High Flow Nasal Cannula Oxygen Flow Rate 10 Fraction of Inspired Oxygen 05/28/25 06:00 05/28/25 06:23 05/28/25 06:25 Temperature Pulse Rate 128 H 130 H Respiratory Rate Blood Pressure Pulse Oximetry 92 93 Oxygen Delivery High Flow Therapy with Na Oxygen Flow Rate 30 Fraction of Inspired Oxygen 65 05/28/25 06:35 05/28/25 08:00 05/28/25 09:14 Temperature 36.9 C Pulse Rate 128 H 128 H 141 H Respiratory Rate 26 H 18 Blood Pressure 115/63 Pulse Oximetry 93 95 Oxygen Delivery High Flow Therapy with Na Oxygen Flow Rate 30 Fraction of Inspired Oxygen 65 05/28/25 09:17 05/28/25 09:50 05/28/25 10:00 Temperature 36.6 C Pulse Rate 141 H 124 H 117 H Respiratory Rate 18 22 H Blood Pressure 88/62 L Pulse Oximetry 92 95 Oxygen Delivery High Flow Therapy with Na Oxygen Flow Rate 30 Fraction of Inspired Oxygen 60 Exam Const: General: cooperative, comfortable and no acute distress Orientation/consciousness: oriented to person, oriented to place and oriented to time HENMT: Head: normal to inspection Ears: hearing grossly normal bilaterally Eyes: General: appearance normal, both eyes and all related structures Neck: Neck: normal visual inspection Chest: Chest palpation & inspection: normal inspection of the chest Resp: Effort & Inspection: normal respiratory effort and able to speak in complete sentences Auscultation: crackles, no rales, no rhonchi, no wheezes and lung sounds not diminished Other: Diffuse crackles right lung and left base. Cardio: Jugular venous distension: no JVD GI: Inspection: normal to inspection GI Palp: No abdominal tenderness Skin: General skin exam: normal color Neuro: General: oriented to person, oriented to place and oriented to time Extrem: General: normal to inspection and no edema Psych: Appearance: grossly normal Results Laboratory Findings 05/28/25 04:07 05/28/25 04:07 ABG, PT/INR, D-dimer: ABG ABG pH 7.442 (7.350-7.450) 05/28/25 06:02 ABG pCO2 37.9 mmHg (35.0-45.0) 05/28/25 06:02 ABG pO2 55.0 mmHg (80.0-100.0) L 05/28/25 06:02 ABG O2 Saturation 89.9 % (95.0-100.0) L 05/28/25 06:02 Abnormal lab findings: Abnormal Labs 05/26/25 05/27/25 05/27/25 16:31 05:05 05:28 WBC 14.3 H 12.2 H RBC 3.91 L 3.45 L Hgb 11.3 L Hct 34.4 L MCHC RDW 14.7 H Neutrophils % (Manual) 84 H 78 H Band Neutrophils % 7 H Lymphocytes % (Manual) 8 L 12 L Abs Neuts (Manual) 12.72 H 10.37 H ABG pO2 60.2 L ABG O2 Saturation 91.9 L ABG O2 Content 14.8 L Oxyhemoglobin Reduced Hemoglobin Total Hemoglobin 11.7 L Sodium 132 L 131 L Anion Gap 3 L BUN 19 H Creatinine 0.67 L AST 185 H 86 H ALT 243 H 156 H Alkaline Phosphatase 174 H 159 H Total Protein 5.5 L Albumin 2.9 L 05/28/25 05/28/25 04:07 06:02 WBC RBC 3.80 L Hgb Hct MCHC 31.8 L RDW Neutrophils % (Manual) Band Neutrophils % Lymphocytes % (Manual) Abs Neuts (Manual) ABG pO2 55.0 L ABG O2 Saturation 89.9 L ABG O2 Content 14.7 L Oxyhemoglobin 87.8 L* Reduced Hemoglobin 10.8 H Total Hemoglobin 11.9 L Sodium 135 L Anion Gap BUN Creatinine AST 49 H ALT 118 H Alkaline Phosphatase 166 H Total Protein 6.2 L Albumin 3.2 L Diagnostic Findings Additional studies: ITS Impressions Chest X-Ray 05/26/25 16:55 Impression: Bilateral pneumonia Chest CTA 05/26/25 18:29 IMPRESSION: 1. Extensive bilateral airspace disease, compatible with pneumonia, right greater than left. 2: Enlarged mediastinal and right hilar lymph nodes, likely reactive. Abdomen Ultrasound 05/27/25 09:25 IMPRESSION: 1. Hepatomegaly, with steatosis and/or diffuse hepatocellular disease. 2. Cirrhosis not excluded. Chest X-Ray 05/27/25 21:20 Impression: 1: Interval progression of right-sided airspace disease, compatible with pneumonia. Chest X-Ray 05/28/25 10:28 IMPRESSION: 1. No significant change. 2. Bilateral pneumonia, right lung worse.
[2025-05-28 10:46] LABS: MRSA (PCR) NOT DETECTED (NOT DETECTE)
[2025-05-28 10:51] LABS: NT Pro B Type Natriuretic Pept 4520 pg/mL (19.9-100)
[2025-05-28 11:06] LABS: Procalcitonin 1.6 ng/mL
[2025-05-28 11:29] LABS: CRP 29.5 mg/dL (<1.0)
--- NOTE | 2025-05-28 12:13 | P.PNCA_ITS ---
Progress Note: A&P Assessment and Plan (1) Atrial fibrillation with rapid ventricular response: Code(s): I48.91 - Unspecified atrial fibrillation Status: Acute Plan Atrial fibrillation new onset in the setting of acute hypoxemic respiratory failure Atrial fibrillation with RVR Acute hypoxemic respiratory failure on oxygen Hypothyroidism Plan Treatment of underlying pneumonia per primary team Change diltiazem to oral diltiazem CC 90 mg daily Xarelto 20 mg daily Levothyroxine Patient claims she had a reaction to metoprolol and will stop it Subjective Date/time seen: 05/28/25 12:13 Interval history: Patient seen for atrial fibrillation Patient feels short breath this morning No acute events Telemetry atrial fibrillation rate 101 105 Review of Systems Review of Systems: All systems reviewed & are unremarkable except as noted in HPI and below Exam Const: General: comfortable, no acute distress, alert and awake Orientation/consciousness: patient oriented x3 HENMT: Head: normal to inspection Eyes: General: appearance normal, both eyes and all related structures Pupils: Equal, round and reactive pupils present Neck: Neck: normal visual inspection, supple and no JVD Carotids: normal carotid upstroke Resp: Effort & Inspection: normal respiratory effort Auscultation: crackles and rhonchi Other: Conversational dyspnea Cardio: Rate: tachycardic Rhythm: abnormal rhythm irregularly irregular Heart sounds: S1 normal heart sound present, S2 normal heart sound present and no murmurs GI: Auscultation: normal bowel sounds Skin: General skin exam: normal color Neuro: General: patient oriented x3 Cranial nerves: Yes Equal, round and re active pupils present Extrem: General: normal to inspection Psych: Appearance: grossly normal Mental Status: mental status grossly normal Objective Data Vital Signs Vital Signs: Vital Signs - 24 hr 05/27/25 16:00 05/27/25 16:00 05/27/25 16:23 Temperature 37.1 C Pulse Rate 123 H 123 H 115 H Respiratory Rate 16 20 Blood Pressure 111/74 Pulse Oximetry 96 97 Oxygen Delivery Nasal Cannula Oxygen Flow Rate 4 Fraction of Inspired Oxygen 05/27/25 20:00 05/27/25 20:00 05/27/25 20:00 Temperature 37.1 C Pulse Rate 145 H 122 H Respiratory Rate 16 Blood Pressure 114/67 Pulse Oximetry 94 90 Oxygen Delivery Nasal Cannula Oxygen Flow Rate 4 Fraction of Inspired Oxygen 05/27/25 20:10 05/27/25 20:14 05/27/25 20:26 Temperature Pulse Rate 134 H 134 H 125 H Respiratory Rate 18 18 Blood Pressure Pulse Oximetry 90 Oxygen Delivery Nasal Cannula Oxygen Flow Rate 4 Fraction of Inspired Oxygen 05/27/25 20:40 05/27/25 22:00 05/28/25 00:00 Temperature 36.4 C Pulse Rate 145 H 120 H 124 H Respiratory Rate 20 Blood Pressure 116/64 Pulse Oximetry 92 Oxygen Delivery Oxygen Flow Rate Fraction of Inspired Oxygen 05/28/25 00:00 05/28/25 00:00 05/28/25 01:52 Temperature Pulse Rate 123 H 121 H Respiratory Rate Blood Pressure Pulse Oximetry 94 Oxygen Delivery Nasal Cannula Oxygen Flow Rate 4 Fraction of Inspired Oxygen 05/28/25 01:54 05/28/25 02:00 05/28/25 02:22 Temperature Pulse Rate 122 H 128 H 131 H Respiratory Rate 18 18 Blood Pressure 113/65 Pulse Oximetry Oxygen Delivery Oxygen Flow Rate Fraction of Inspired Oxygen 05/28/25 02:23 05/28/25 02:31 05/28/25 02:42 Temperature Pulse Rate 130 H Respiratory Rate Blood Pressure 113/65 Pulse Oximetry 90 91 Oxygen Delivery Nasal Cannula High Flow Nasal Cannula Oxygen Flow Rate 5 6 Fraction of Inspired Oxygen 05/28/25 03:03 05/28/25 04:00 05/28/25 04:00 Temperature 36.9 C Pulse Rate 133 H 128 H Respiratory Rate 16 Blood Pressure 124/65 Pulse Oximetry 91 91 Oxygen Delivery High Flow Nasal Cannula Oxygen Flow Rate 6 Fraction of Inspired Oxygen 05/28/25 04:00 05/28/25 05:35 05/28/25 05:38 Temperature Pulse Rate 128 H 136 H Respiratory Rate 22 H Blood Pressure 124/65 115/65 Pulse Oximetry 90 86 L Oxygen Delivery High Flow Nasal Cannula Oxygen Flow Rate 10 Fraction of Inspired Oxygen 05/28/25 05:50 05/28/25 06:00 05/28/25 06:23 Temperature Pulse Rate 136 H 128 H 130 H Respiratory Rate Blood Pressure 115/65 Pulse Oximetry 92 Oxygen Delivery Oxygen Flow Rate Fraction of Inspired Oxygen 05/28/25 06:25 05/28/25 06:35 05/28/25 08:00 Temperature 36.9 C Pulse Rate 128 H 128 H Respiratory Rate 26 H Blood Pressure 115/63 Pulse Oximetry 93 93 95 Oxygen Delivery High Flow Therapy with Na High Flow Therapy with Na Oxygen Flow Rate 30 30 Fraction of Inspired Oxygen 65 65 05/28/25 08:00 05/28/25 08:00 05/28/25 09:14 Temperature Pulse Rate 128 H 141 H Respiratory Rate 18 Blood Pressure 115/63 Pulse Oximetry 96 Oxygen Delivery High Flow Nasal Cannula Oxygen Flow Rate 30 Fraction of Inspired Oxygen 65 05/28/25 09:17 05/28/25 09:50 05/28/25 10:00 Temperature 36.6 C Pulse Rate 141 H 124 H 117 H Respiratory Rate 18 22 H Blood Pressure 88/62 L Pulse Oximetry 92 95 Oxygen Delivery High Flow Therapy with Na Oxygen Flow Rate 30 Fraction of Inspired Oxygen 60 05/28/25 10:00 05/28/25 11:00 05/28/25 12:00 Temperature 36.9 C Pulse Rate 117 H 100 107 H Respiratory Rate 16 Blood Pressure 88/62 L 97/79 L 90/62 L Pulse Oximetry 98 Oxygen Delivery Oxygen Flow Rate Fraction of Inspired Oxygen Intake/Output Intake/Output: Intake & Output 05/25/25 05/26/25 05/27/25 05/28/25 23:59 23:59 23:59 23:59 Intake Total 1603.3 1510 568.3 Output Total 300 1850 410 Balance 1303.3 -340 158.3 Meds/Results Medications: Active Medications Generic Name Dose Route Start Last Admin Trade Name Freq PRN Reason Stop Dose Admin Acetaminophen 650 mg 05/26/25 18:40 05/27/25 09:59 Acetaminophen 325 Mg Tablet PO 650 mg Q4H PRN Administration Mild Pain (1-3) or Fever Hydrocodone Bitart/Acetaminophen 1 tab 05/27/25 20:59 05/28/25 06:32 Hydrocodone/Acetaminophen (*Crx) 5-325 Mg Tablet PO 1 tab Q6H PRN Administration Pain Rated 4-10 Amitriptyline HCl 150 mg 05/27/25 21:00 05/27/25 20:40 Amitriptyline Hcl 25 Mg Tablet PO 150 mg HS IRENE Administration Budesonide 0.5 mg 05/28/25 20:00 Budesonide Respule Neb 0.5 Mg/2 Ml Amp INHALATION Q12HRT IRENE Bupropion HCl 150 mg 05/26/25 21:15 05/27/25 20:40 Bupropion Hcl Xl (24 Hr) 150 Mg Tabcr PO 150 mg HS IRENE Administration Buspirone HCl 10 mg 05/26/25 21:20 05/28/25 09:51 Buspirone Hcl 10 Mg Tablet PO 10 mg BID IRENE Administration Calcium Citrate 2 tablet 05/27/25 09:00 05/28/25 09:49 Calcium Citrate 315 Mg/Vitamin D 6.25 Mcg (250 Units) Tab PO 2 tablet BID IRENE Administration Gabapentin 800 mg 05/26/25 21:15 05/28/25 09:50 Gabapentin 400 Mg Capsule PO 800 mg Q12HR IRENE Administration Guaifenesin 1,200 mg 05/26/25 21:40 05/28/25 09:50 Guaifenesin 12 Hr 600 Mg Tabcr PO 1,200 mg Q12HR IRENE Administration Hydrocortisone Sodium Succinate 50 mg 05/28/25 12:05 Hydrocortisone Sodium Succinate 100 Mg/2 Ml Vial IV PUSH Q6HR [facility] Ceftriaxone Sodium 1 gm/ 50 mls @ 100 mls/hr 05/26/25 21:30 05/28/25 09:19 Sodium Chloride IVPB 100 mls/hr DAILY IRENE Administration Diltiazem HCl 100 mg in 100 mls @ 5 mls/hr 05/28/25 02:20 05/28/25 11:00 Cardizem 100 Mg/100 Ml IV CONT 5 mg/hr .Q20H IRENE 5 mls/hr 5 MG/HR Infusion Azithromycin 500 mg/ Sodium 250 mls @ 250 mls/hr 05/29/25 10:00 Chloride IVPB Q24H IRENE Ipratropium [place] 0.5 mg 05/28/25 12:00 Ipratropium Br 0.02% Inh Soln 0.5 Mg/2.5 Ml Vial INHALATION [id number] SCH Levothyroxine Sodium 75 mcg 05/27/25 06:30 05/28/25 06:28 Levothyroxine Sodium 75 Mcg Tablet PO 75 mcg DAILY@0630 IRENE Administration Metoprolol Tartrate 25 mg 05/27/25 21:00 05/28/25 09:50 Metoprolol Tartrate 25 Mg Tablet PO 25 mg Q12HR IRENE Administration Multivitamins/Minerals 1 tab 05/27/25 09:00 05/28/25 09:50 Multivitamins /C Lutein (Centrum Silver) Tablet *Bkc PO 1 tab DAILY [facility] Administration Ondansetron HCl 4 mg 05/26/25 21:08 Ondansetron Inj 4 Mg/2 Ml Vial IV PUSH Q6H PRN Nausea And Vomiting Pantoprazole Sodium 40 mg 05/27/25 09:00 05/28/25 09:50 Pantoprazole 40 Mg Tablet PO 40 mg QAM IRENE Administration Perflutren Lipid Microsphere 0 ml 05/27/25 09:56 Perflutren Lipid Microspheres 1.5 Ml Vial Diluted To 10 Ml Total Volume IV PUSH 05/30/25 09:56 ONCE PRN adequate visualization Protocol Quetiapine Fumarate 100 mg 05/26/25 21:40 05/27/25 20:39 Quetiapine Fumarate 100 Mg Tablet PO 100 mg HS IRENE Administration Quetiapine Fumarate 50 mg 05/26/25 21:40 05/27/25 20:39 Quetiapine Fumarate 25 Mg Tablet PO 50 mg HS IRENE Administration Rivaroxaban 20 mg 05/27/25 17:00 05/27/25 18:10 Rivaroxaban 20 Mg Tablet PO 20 mg DAILY@1700 IRENE Administration Vitamin D 125 mcg 05/27/25 09:00 05/28/25 09:50 Cholecalciferol (Vitamin D3) 125 Mcg (5,000 Units) Tablet PO 125 mcg DAILY IRENE Administration Radiology Results: ITS Impressions Chest CTA 05/26/25 18:29 IMPRESSION: 1. Extensive bilateral airspace disease, compatible with pneumonia, right greater than left. 2: Enlarged mediastinal and right hilar lymph nodes, likely reactive. Abdomen Ultrasound 05/27/25 09:25 IMPRESSION: 1. Hepatomegaly, with steatosis and/or diffuse hepatocellular disease. 2. Cirrhosis not excluded. Chest X-Ray 05/28/25 10:28 IMPRESSION: 1. No significant change. 2. Bilateral pneumonia, right lung worse. Labs Labs: Laboratory Results - last 24 hr 05/27/25 05/28/25 05/28/25 18:28 04:07 06:02 WBC 9.2 RBC 3.80 L Hgb 12.1 Hct 38.0 MCV 100.0 MCH 31.8 MCHC 31.8 L RDW 14.4 Plt Count 199 MPV 9.9 Puncture Site Right brachial ABG pH 7.442 ABG pCO2 37.9 ABG pO2 55.0 L ABG PO2/FiO2 Ratio 0.69 ABG HCO3 25.3 ABG O2 Saturation 89.9 L ABG O2 Content 14.7 L ABG Base Excess 1.3 A-a Gradient 475.6 Oxyhemoglobin 87.8 L* Carboxyhemoglobin 1.1 Methemoglobin 0.3 Reduced Hemoglobin 10.8 H Total Hemoglobin 11.9 L O2 Delivery Device High flow nasal jason O2 Liters/Min 10.0 FiO2 80 Sodium 135 L Potassium 3.4 Chloride 101 Carbon Dioxide 28 Anion Gap 6 BUN 13 Creatinine 0.82 Estim Creat Clear Calc 80 Estimated GFR > 60 Glucose 90 Calcium 8.7 Magnesium 1.8 Total Bilirubin 0.9 AST 49 H ALT 118 H Alkaline Phosphatase 166 H Troponin I < 0.012 C-Reactive Protein 29.5 H NT-Pro-B Natriuret Pep 4520 H Total Protein 6.2 L Albumin 3.2 L Triglycerides 130 Cholesterol 162 LDL Cholesterol Direct 92 HDL Direct 32 Procalcitonin 1.6 Nasal MRSA (PCR) Hepatitis A IgM Ab Negative Hep Bs Antigen Negative Hep B Core IgM Ab Negative Hepatitis C Ab Screen Negative 05/28/25 09:26 WBC RBC Hgb Hct MCV MCH MCHC RDW Plt Count MPV Puncture Site ABG pH ABG pCO2 ABG pO2 ABG PO2/FiO2 Ratio ABG HCO3 ABG O2 Saturation ABG O2 Content ABG Base Excess A-a Gradient Oxyhemoglobin Carboxyhemoglobin Methemoglobin Reduced Hemoglobin Total Hemoglobin O2 Delivery Device O2 Liters/Min FiO2 Sodium Potassium Chloride Carbon Dioxide Anion Gap BUN Creatinine Estim Creat Clear Calc Estimated GFR Glucose Calcium Magnesium Total Bilirubin AST ALT Alkaline Phosphatase Troponin I C-Reactive Protein NT-Pro-B Natriuret Pep Total Protein Albumin Triglycerides Cholesterol LDL Cholesterol Direct HDL Direct Procalcitonin Nasal MRSA (PCR) Not detected Hepatitis A IgM Ab Hep Bs Antigen Hep B Core IgM Ab Hepatitis C Ab Screen
[2025-05-28 12:29] LABS: Influenza A QL RT-PCR Negative (Negative); Influenza B QL RT-PCR Negative (Negative); RSV RNA, RT-PCR Negative (Negative); SARS-CoV-2 RNA PCR Negative (Negative)
[2025-05-28] MEDS: dilTIAZem HCL CD 120 MG CAP.24HR PO ×2 (12:31→22:25)
[2025-05-28] MEDS: HYDROCORTISONE SODIUM SUCCINATE 100 MG/2 ML VIAL 50 MG IV PUSH ×3 (12:31→23:19)
[2025-05-28] MEDS: IPRATROPIUM BR 0.02% INH SOLN 0.5 MG/2.5 ML VIAL INHALATION ×3 (13:17→19:42)
[2025-05-28] MEDS: LIDOCAINE 5% PATCH 1 PATCH TRANSDERM (14:57)
[2025-05-28] MEDS: CYCLOBENZAPRINE HCL 10 MG TABLET PO (14:57)
--- NOTE | 2025-05-28 15:50 | PC.NURSE ---
On 05/28/25, the student, Paul Swain, provided care and completed [facility] documentation on this patient. I have reviewed the student's documentation and agree with the findings.
[2025-05-28] MEDS: RIVAROXABAN 15 MG TABLET PO (16:15)
[2025-05-28] MEDS: BUDESONIDE RESPULE NEB 0.5 MG/2 ML AMP INHALATION (19:42)
[2025-05-28] MEDS: AMITRIPTYLINE HCL 25 MG TABLET 150 MG PO (20:17)
[2025-05-28] MEDS: buPROPion HCL XL (24 HR) 150 MG TABCR PO (20:18)
[2025-05-29] VITALS (25 sets, daily range): BP systolic 102–118; BP diastolic 63–86; PULSE 100–129; RESP 16–22; TEMP 36.4; O2SAT 89–96
[2025-05-29 04:58] LABS: Hematocrit 37.1 % (37.0-47.0); Hemoglobin 11.8 g/dL (12.0-15.0); Mean Corpuscular HGB Conc 31.8 g/dl (32-36); Mean Corpuscular Hemoglobin 32.5 pg (26-34); Mean Corpuscular Volume 102.2 fl (80-100); Platelet Count Result 237 k/mm3 (150-375); Red Blood Count 3.63 M/mm3 (4.2-5.4); White Blood Count 7.4 K/mm3 (4.5-10.0)
[2025-05-29 05:20] LABS: Alanine Aminotransferase 87 U/L (6-35); Albumin Level 3.3 g/dL (3.5-5.1); Alkaline Phosphatase 152 U/L (38-126); Anion Gap 6 mmol/L (4-12); Aspartate Amino Transferase 40 U/L (14-36); Bilirubin,Total 0.4 mg/dL (0.2-1.3); Blood Urea Nitrogen 14 mg/dL (7-17); Calcium 9.0 mg/dL (8.4-10.2); Carbon Dioxide 27 mmol/L (22-30); Chloride 102 mmol/L (98-107); Estimated CRCL calculation 86 ml/min; Estimated Glomerular Filt Rate > 60; Glucose 115 mg/dL (65-110); Magnesium 2.0 mg/dL (1.6-2.3); Potassium 3.7 mmol/L (3.4-5.0); Sodium 135 mmol/L (137-145); Total Protein 6.3 g/dL (6.3-8.2)
[2025-05-29] MEDS: HYDROCORTISONE SODIUM SUCCINATE 100 MG/2 ML VIAL 50 MG IV PUSH ×4 (06:21→23:39)
[2025-05-29] MEDS: LEVOTHYROXINE SODIUM 75 MCG TABLET PO (06:21)
[2025-05-29] MEDS: IPRATROPIUM BR 0.02% INH SOLN 0.5 MG/2.5 ML VIAL INHALATION ×4 (07:28→20:25)
[2025-05-29] MEDS: BUDESONIDE RESPULE NEB 0.5 MG/2 ML AMP INHALATION ×2 (07:28→20:24)
[2025-05-29 07:45] LABS: CRP 19.8 mg/dL (<1.0)
[2025-05-29 08:08] LABS: Procalcitonin 1.0 ng/mL
[2025-05-29] MEDS: CYCLOBENZAPRINE HCL 10 MG TABLET PO ×2 (09:13→19:46)
[2025-05-29] MEDS: LIDOCAINE 5% PATCH 1 PATCH TRANSDERM (09:14)
[2025-05-29] MEDS: PANTOPRAZOLE 40 MG TABLET PO (09:14)
[2025-05-29] MEDS: MULTIVITAMINS /C LUTEIN (CENTRUM SILVER) TABLET *BKC 1 TAB PO (09:14)
[2025-05-29] MEDS: GABAPENTIN 400 MG CAPSULE 800 MG PO ×2 (09:14→21:33)
[2025-05-29] MEDS: guaiFENesin 12 HR 600 MG TABCR 1200 MG PO ×2 (09:14→21:34)
[2025-05-29] MEDS: CHOLECALCIFEROL (VITAMIN D3) 125 MCG (5,000 UNITS) TABLET PO (09:15)
[2025-05-29] MEDS: dilTIAZem HCL CD 120 MG CAP.24HR PO ×2 (09:15→13:20)
[2025-05-29] MEDS: cefTRIAXone 1 GM in SODIUM CHLORIDE 0.9% IV 50 ML 100 ML IVPB (09:15)
[2025-05-29] MEDS: FUROSEMIDE 20 MG TABLET PO (09:15)
[2025-05-29] MEDS: CALCIUM CITRATE 315 MG/VITAMIN D 6.25 MCG (250 UNITS) TAB 2 TABLET PO ×2 (09:16→17:24)
--- NOTE | 2025-05-29 09:35 | P.PNIM_ITS ---
Progress Note: A&P Assessment and Plan (1) Acute respiratory failure with hypoxia: Code(s): J96.01 - Acute respiratory failure with hypoxia Status: Acute Assessment and Plan: Patient on admission requiring 4 L supplemental oxygen to maintain 92% patient does not wear oxygen at home likely secondary to her underlying pneumonia as well AFib with RVR. * Will continue to wean oxygen as tolerated * CTA chest with no PE * Nebulizers scheduled * High flow transitioned to 7 (2) Community acquired pneumonia: Code(s): J18.9 - Pneumonia, unspecified organism Status: Acute Assessment and Plan: CT showing bilateral pneumonia and elevated wbc's with acute respiratory failure with hypoxia. Patient with no HX of COPD, ILD or recurrent PNA * IV Rocephin and azithromycin PO daily * Supplemental oxygen Worsening respiratory status overnight currently on High flow 30/65 FIO2 * Ipratropium 0.5 * Blood cultures NGTD * Obtain sputum culture * Incentive spirometer * Guaifenesin 1200 mg BID ordered * added Pulmicort * Legionella and strep urine pending * I reviewed F/U CXR with worsening PNA * consult pulmonology appreciate any further recommendations * MRSA Negative * Pulmonology added Hydrocortisone IVP 50mg Q6hr for severe PNA (3) Atrial fibrillation with rapid ventricular response: Code(s): I48.91 - Unspecified atrial fibrillation Status: Acute Assessment and Plan: Patient with new onset AFib RVR rates in the 140s no previous history. Patient reports she has even had a Holter monitor in the past that showed no atrial fibrillation likely secondary to patient's infection and hypoxia * Patient received 1 time dose IVP metoprolol * Remain low 120s gave a single dose 25 mg Cardizem IVP with improvement but had not converted * Cardiology was consulted * Echocardiogram: LVEF 65-70 % AFIB * Patient transition from Cardizem drip to oral Cardizem metoprolol has been discontinued after reports of reaction to metoprolol from patient rates in the low 100s * Xarelto 15mg due to interaction with Cardizem per Cardiology * Patient increased to Cardizem 240mg daily from 120mg daily (4) Transaminitis: Code(s): R74.01 - Elevation of levels of liver transaminase levels Status: Acute Assessment and Plan: Spoke with patient regarding her elevated liver enzymes which time she did hurt she has been taking a of Tylenol due to her to the pain could be underlying sebastian but also showed some fatty liver disease and cannot rule cirrhosis on the ultrasound patient reports she does not drink alcohol * AST is 185 and ALT is 243. In comparison in November the AST was 31 ALT was 47. Improving with fluids * US hepatomegaly with steatosis or diffuse hepatocellular disease unable to exclude cirrhosis * Hepatitis panel negative * Lipid panel pending * Trend with labs * Recommended discontinuation Tylenol or reduce amount of daily intake (5) Anxiety: Code(s): F41.9 - Anxiety disorder, unspecified Status: Chronic Assessment and Plan: * Continue home medications of Wellbutrin, BuSpar, Seroquel (6) Hypertension: Code(s): I10 - Essential (primary) hypertension Status: Chronic Assessment and Plan: Soft BP 's * current on cardizem with soft BP's carvedilol D/C (7) GERD (gastroesophageal reflux disease): Code(s): K21.9 - Gastro-esophageal reflux disease without esophagitis Status: Chronic Assessment and Plan: * Patient uses omeprazole at home switch to pantoprazole which is formulated (8) Hypothyroidism: Code(s): E03.9 - Hypothyroidism, unspecified Status: Chronic Assessment and Plan: * Continue levothyroxine * Check TSH WNL Plan Code status: Full code per patient DVT prophylaxis: Lovenox Stress ulcer prophylaxis: Protonix 40 daily PT/OT notes: Ambulatory Disposition: Patient admitted to the medical unit initially being treated for pneumonia and acute respiratory failure with hypoxia patient remains in AFib but rate better controlled transition to oral Cardizem patient has required more oxygen support with high-flow pulmonology consulted. Patient's plan is to return to home at discharge when medically stable. Time Spent With Patient Time with patient: 25 - 35 minutes Subjective Date/time seen: 05/29/25 09:35 Interval history: Patient is a 65-year-old female admitted for evaluation treatment of acute respiratory failure hypoxia secondary to bilateral pneumonia in new onset AFib RVR. 05/29/2025: Patient reports minimal improvement, denies CP but still with significant SOB. HR still in the 110's-120's. Review of Systems Review of Systems: All systems reviewed & are unremarkable except as noted in HPI and below Exam Const: General: comfortable and no acute distress Other: Obese female HENMT: Face/Nose/Sinus: Normal nares present Mouth: Yes moist mucous membranes Eyes: General: appearance normal, both eyes and all related structures Neck: Neck: supple and no JVD Lymphatic: lymphadenopathy not noted Chest: Other: Nontender to palpation Resp: Effort & Inspection: abnormal respiratory effort (Increased effort), able to speak in complete sentences, Actively coughing and tachypneic Auscultation: crackles (Course) bilateral in the lower lung lynn (Right greater than left) Cardio: Rate: tachycardic Rhythm: regular rhythm Heart sounds: no gallops, no murmurs and no rubs Other: Irregular irregular/I reveiwed WKG showing AFIB with a rate of 137 GI: Inspection: non-distended Auscultation: normal bowel sounds Skin: General skin exam: normal color, no rashes or lesions noted and No lesion Lesions: no lesions noted Wounds: no wounds Neuro: Speech: normal speech Motor exam (neuro): 5/5 motor strength present throughout and Normal motor muscle tone present throughout Other: No focal deficits Extrem: General: normal to inspection and no edema Psych: Mental Status: mental status grossly normal Affect: normal affect Objective Data Vital Signs Vital Signs: Vital Signs - 24 hr 05/28/25 09:50 05/28/25 10:00 05/28/25 10:00 Temperature 97.8 F Pulse Rate 124 H 117 H 117 H Respiratory Rate 22 H Blood Pressure 88/62 L 88/62 L Pulse Oximetry 95 Oxygen Delivery Oxygen Flow Rate Fraction of Inspired Oxygen 05/28/25 10:00 05/28/25 11:00 05/28/25 12:00 Temperature 98.4 F Pulse Rate 117 H 100 107 H Respiratory Rate 16 Blood Pressure 97/79 L 90/62 L Pulse Oximetry 98 Oxygen Delivery Oxygen Flow Rate Fraction of Inspired Oxygen 05/28/25 12:00 05/28/25 12:00 05/28/25 12:00 Temperature 98.8 F Pulse Rate 134 H 134 H Respiratory Rate 24 H Blood Pressure 97/79 L 97/79 L Pulse Oximetry 94 93 Oxygen Delivery High Flow Nasal Cannula Oxygen Flow Rate 30 Fraction of Inspired Oxygen 65 05/28/25 12:00 05/28/25 12:40 05/28/25 12:44 Temperature Pulse Rate 118 H 110 H 110 H Respiratory Rate Blood Pressure 97/79 L 97/79 L Pulse Oximetry Oxygen Delivery Oxygen Flow Rate Fraction of Inspired Oxygen 05/28/25 13:17 05/28/25 13:21 05/28/25 14:00 Temperature Pulse Rate 117 H 102 H 132 H Respiratory Rate 20 20 Blood Pressure Pulse Oximetry Oxygen Delivery Oxygen Flow Rate Fraction of Inspired Oxygen 05/28/25 16:00 05/28/25 16:00 05/28/25 16:11 Temperature 98.2 F Pulse Rate 119 H 122 H Respiratory Rate 20 Blood Pressure 95/59 L Pulse Oximetry 96 93 Oxygen Delivery High Flow Nasal Cannula Oxygen Flow Rate 30 Fraction of Inspired Oxygen 65 05/28/25 16:37 05/28/25 16:44 05/28/25 18:00 Temperature Pulse Rate 117 H 106 H 128 H Respiratory Rate 19 19 Blood Pressure Pulse Oximetry Oxygen Delivery Oxygen Flow Rate Fraction of Inspired Oxygen 05/28/25 19:42 05/28/25 19:47 05/28/25 20:00 Temperature Pulse Rate 129 H 129 H 145 H Respiratory Rate 20 20 Blood Pressure Pulse Oximetry 92 Oxygen Delivery High Flow Nasal Cannula Oxygen Flow Rate 30 Fraction of Inspired Oxygen 65 05/28/25 20:00 05/28/25 20:00 05/28/25 21:20 Temperature 98.5 F Pulse Rate 135 H 130 H 129 H Respiratory Rate 20 18 Blood Pressure 105/84 Pulse Oximetry 90 90 Oxygen Delivery High Flow Therapy with Na Oxygen Flow Rate 30 Fraction of Inspired Oxygen 66 05/28/25 21:35 05/28/25 21:59 05/28/25 23:28 Temperature Pulse Rate 140 H 141 H 123 H Respiratory Rate Blood Pressure 122/65 Pulse Oximetry 92 Oxygen Delivery High Flow Nasal Cannula Oxygen Flow Rate 30 Fraction of Inspired Oxygen 65 05/28/25 23:30 05/29/25 00:00 05/29/25 02:00 Temperature 97.7 F Pulse Rate 133 H 114 H 110 H Respiratory Rate 20 Blood Pressure 96/65 L Pulse Oximetry 96 Oxygen Delivery Oxygen Flow Rate Fraction of Inspired Oxygen 05/29/25 04:00 05/29/25 04:00 05/29/25 04:00 Temperature 97.6 F Pulse Rate 100 100 102 H Respiratory Rate 18 Blood Pressure 104/71 Pulse Oximetry 94 91 Oxygen Delivery High Flow Nasal Cannula Oxygen Flow Rate 30 Fraction of Inspired Oxygen 65 05/29/25 06:00 05/29/25 07:28 05/29/25 07:28 Temperature Pulse Rate 102 H 100 Respiratory Rate 20 Blood Pressure Pulse Oximetry 92 Oxygen Delivery High Flow Therapy with Na Oxygen Flow Rate 30 Fraction of Inspired Oxygen 65 05/29/25 07:40 05/29/25 07:52 05/29/25 07:56 Temperature 97.6 F Pulse Rate 102 H 120 H Respiratory Rate 20 22 H Blood Pressure 102/86 Pulse Oximetry 94 94 Oxygen Delivery High Flow Nasal Cannula Oxygen Flow Rate 30 Fraction of Inspired Oxygen 65 Intake/Output Intake/Output: Intake & Output 05/26/25 05/27/25 05/28/25 05/29/25 23:59 23:59 23:59 23:59 Intake Total 1603.3 1510 1946.6 450 Output Total 300 1850 2760 Balance 1303.3 -340 -813.4 450 Meds/Results Medications: Active Medications Generic Name Dose Route Start Last Admin Trade Name Freq PRN Reason Stop Dose Admin Acetaminophen 650 mg 05/26/25 18:40 05/27/25 09:59 Acetaminophen 325 Mg Tablet PO 650 mg Q4H PRN Administration Mild Pain (1-3) or Fever Hydrocodone Bitart/Acetaminophen 1 tab 05/27/25 20:59 05/28/25 20:28 Hydrocodone/Acetaminophen (*Crx) 5-325 Mg Tablet PO 1 tab Q6H PRN Administration Pain Rated 4-10 Amitriptyline HCl 150 mg 05/27/25 21:00 05/28/25 20:17 Amitriptyline Hcl 25 Mg Tablet PO 150 mg HS IRENE Administration Benzonatate 200 mg 05/28/25 14:03 Benzonatate 100 Mg Capsule PO TID PRN Cough Budesonide 0.5 mg 05/28/25 20:00 05/29/25 07:28 Budesonide Respule Neb 0.5 Mg/2 Ml Amp INHALATION 0.5 mg Q12HRT IRENE Administration Bupropion HCl 150 mg 05/26/25 21:15 05/28/25 20:18 Bupropion Hcl Xl (24 Hr) 150 Mg Tabcr PO 150 mg HS IRENE Administration Buspirone HCl 10 mg 05/26/25 21:20 05/29/25 09:16 Buspirone Hcl 10 Mg Tablet PO 10 mg BID IRENE Administration Calcium Citrate 2 tablet 05/27/25 09:00 05/29/25 09:16 Calcium Citrate 315 Mg/Vitamin D 6.25 Mcg (250 Units) Tab PO 2 tablet BID IRENE Administration Cyclobenzaprine HCl 10 mg 05/28/25 14:03 05/29/25 09:13 Cyclobenzaprine Hcl 10 Mg Tablet PO 10 mg Q8H PRN Administration Muscle Spasm Diltiazem HCl 120 mg 05/28/25 12:30 05/29/25 09:15 Diltiazem Hcl Cd 120 Mg Cap.24hr PO 120 mg QAM IRENE Administration Furosemide 20 mg 05/29/25 09:00 05/29/25 09:15 Furosemide 20 Mg Tablet PO 20 mg DAILY IRENE Administration Gabapentin 800 mg 05/26/25 21:15 05/29/25 09:14 Gabapentin 400 Mg Capsule PO 800 mg Q12HR IRENE Administration Guaifenesin 1,200 mg 05/26/25 21:40 05/29/25 09:14 Guaifenesin 12 Hr 600 Mg Tabcr PO 1,200 mg Q12HR IRENE Administration Hydrocortisone Sodium Succinate 50 mg 05/28/25 12:05 05/29/25 06:21 Hydrocortisone Sodium Succinate 100 Mg/2 Ml Vial IV PUSH 50 mg Q6HR IRENE Administration Ceftriaxone Sodium 1 gm/ 50 mls @ 100 mls/hr 05/26/25 21:30 05/29/25 09:15 Sodium Chloride IVPB 100 mls/hr DAILY IRENE Administration Azithromycin 500 mg/ Sodium 250 mls @ 250 mls/hr 05/29/25 10:00 Chloride IVPB Q24H IRENE Ipratropium [place] 0.5 mg 05/28/25 12:00 05/29/25 07:28 Ipratropium Br 0.02% Inh Soln 0.5 Mg/2.5 Ml Vial INHALATION 0.5 mg [id number] IRENE Administration Levothyroxine Sodium 75 mcg 05/27/25 06:30 05/29/25 06:21 Levothyroxine Sodium 75 Mcg Tablet PO 75 mcg DAILY@0630 IRENE Administration Lidocaine 1 patch 05/28/25 14:05 05/29/25 09:14 Lidocaine 5% Patch TRANSDERM 1 patch DAILY IRENE Administration Multivitamins/Minerals 1 tab 05/27/25 09:00 05/29/25 09:14 Multivitamins /C Lutein (Centrum Silver) Tablet *Bkc PO 1 tab DAILY IRENE Administration Ondansetron HCl 4 mg 05/26/25 21:08 Ondansetron Inj 4 Mg/2 Ml Vial IV PUSH Q6H PRN Nausea And Vomiting Pantoprazole Sodium 40 mg 05/27/25 09:00 05/29/25 09:14 Pantoprazole 40 Mg Tablet PO 40 mg QAM IRENE Administration Perflutren Lipid Microsphere 0 ml 05/27/25 09:56 Perflutren Lipid Microspheres 1.5 Ml Vial Diluted To 10 Ml Total Volume IV PUSH 05/30/25 09:56 ONCE PRN adequate visualization Protocol Quetiapine Fumarate 100 mg 05/26/25 21:40 05/28/25 20:17 Quetiapine Fumarate 100 Mg Tablet PO 100 mg HS IRENE Administration Quetiapine Fumarate 50 mg 05/26/25 21:40 05/28/25 20:17 Quetiapine Fumarate 25 Mg Tablet PO 50 mg HS IRENE Administration Rivaroxaban 15 mg 05/28/25 17:00 05/28/25 16:15 Rivaroxaban 15 Mg Tablet PO 15 mg DAILY@1700 IRENE Administration Vitamin D 125 mcg 05/27/25 09:00 05/29/25 09:15 Cholecalciferol (Vitamin D3) 125 Mcg (5,000 Units) Tablet PO 125 mcg DAILY IRENE Administration Radiology Results: ITS Impressions Chest CTA 05/26/25 18:29 IMPRESSION: 1. Extensive bilateral airspace disease, compatible with pneumonia, right greater than left. 2: Enlarged mediastinal and right hilar lymph nodes, likely reactive. Abdomen Ultrasound 05/27/25 09:25 IMPRESSION: 1. Hepatomegaly, with steatosis and/or diffuse hepatocellular disease. 2. Cirrhosis not excluded. Chest X-Ray 05/28/25 10:28 IMPRESSION: 1. No significant change. 2. Bilateral pneumonia, right lung worse. Labs Labs: Laboratory Results - last 24 hr 05/28/25 05/28/25 05/28/25 04:07 09:26 11:42 WBC RBC Hgb Hct MCV MCH MCHC RDW Plt Count MPV Sodium Potassium Chloride Carbon Dioxide Anion Gap BUN Creatinine Estim Creat Clear Calc Estimated GFR Glucose Calcium Magnesium Total Bilirubin AST ALT Alkaline Phosphatase C-Reactive Protein 29.5 H NT-Pro-B Natriuret Pep 4520 H Total Protein Albumin Procalcitonin 1.6 Nasal MRSA (PCR) Not detected Influenza A (RT-PCR) Negative Influenza B (RT-PCR) Negative RSV (RT-PCR) Negative SARS-CoV-2 RNA (RT-PCR) Negative 05/29/25 04:24 WBC 7.4 RBC 3.63 L Hgb 11.8 L Hct 37.1 MCV 102.2 H MCH 32.5 MCHC 31.8 L RDW 14.0 Plt Count 237 MPV 9.9 Sodium 135 L Potassium 3.7 Chloride 102 Carbon Dioxide 27 Anion Gap 6 BUN 14 Creatinine 0.76 Estim Creat Clear Calc 86 Estimated GFR > 60 Glucose 115 H Calcium 9.0 Magnesium 2.0 Total Bilirubin 0.4 AST 40 H ALT 87 H Alkaline Phosphatase 152 H C-Reactive Protein 19.8 H NT-Pro-B Natriuret Pep Total Protein 6.3 Albumin 3.3 L Procalcitonin 1.0 Nasal MRSA (PCR) Influenza A (RT-PCR) Influenza B (RT-PCR) RSV (RT-PCR) SARS-CoV-2 RNA (RT-PCR) Quality VTE Prophylaxis VTE prophylaxis: pharmacologic ordered -Patient's previous records reviewed on admission -ER notes reviewed in detail on admission -discussed all findings and current treatment plan with patient/Family/POA -Consultations reviewed for recommendations -Patient's disposition for safe discharge discussed with case resource manager -radiology imaging, EKG and test results I have personally reviewed and interpreted unless otherwise specified Dictation performed by [employer]dex direct speech recognition software, therefore fence installer variants and typographical errors may occur. Hospitalist MIPS Advance Care Plan I have confirmed that the patient's Advanced Care Plan is present, code status is documented, or surrogate decision maker is listed in patient medical record.: Yes Medication Reconciliation I have utilized all available resources to obtain, update and review the patients current medications (includes all prescriptions, OTC, herbals, cannabis, and nutritional supplements).: Yes The patient is not eligible for med reconciliation; the patient is in a emergent medical situation where delaying treatment would jeopardize the patients health.: No
[2025-05-29] MEDS: AZITHROMYCIN IV 500 MG in SODIUM CHLORIDE 0.9% IV 250 ML IVPB (09:55)
--- NOTE | 2025-05-29 11:49 | PM.PNPUL ---
Progress Note: A&P Assessment and Plan (1) Community acquired pneumonia: Code(s): J18.9 - Pneumonia, unspecified organism Status: Acute Assessment and Plan: Patient presents with 36 hours of chills, rigors, shortness of breath, rattling in the chest, shortness of breath with a leukocytosis 14.3, bandemia 5%, CT angiogram of the chest with no PE but extensive patchy consolidative ground-glass infiltrates throughout the entire right lung, left upper lobe and left lower lobe and now with worsening oxygenation requiring Airvo 30 L and 65% FiO2. Her CRP is 29.5. Initial COVID, RSV, influenza RT PCR and assay negative. MRSA RT PCR negative today. patient has a severe community-acquired pneumonia. She is afebrile, she feels better than she did when she presented, no longer has hemoptysis, leukocytosis has resolved. 05/28/25: Plan: At this time I will continue ceftriaxone and change the azithromycin to IV. She has severe community-acquired pneumonia as she is requiring high-flow nasal cannula and her CRP is 29.5. Her pneumonia severity index score is 50. I will initiate hydrocortisone 50 mg IV q.6 hours. Patient has a tachy arrhythmia and I will discontinue beta agonist. I will continue ipratropium as she says the nebulized treatments were helping her. I will continue budesonide 500 mcg q.12 hours. I will repeat COVID, influenza, RSV RT PCR assay, send respiratory pathogen panel, urine for Legionella antigen, urine for pneumococcal antigen, check serum mycoplasma IgM levels on 05/28/2025. If the patient should decompensate will consider her a ceftriaxone and azithromycin failure and change her to meropenem and Levaquin. 05/29/2025: Overall the patient tells me she is the same as yesterday but a 1000 times better than when she presented. Her shortness of breath at rest and dyspnea on exertion or unchanged. She states her cough is worse but is now dry which is better. When I enter the room she was on Airvo 30 L 65% FiO2 with saturations 94%. I decreased her to nasal cannula oxygen and sequentially decreased her to 7 L nasal cannula her saturations were 92%. She is afebrile. White blood cell count 7.4, creatinine 0.76. CRP has improved from 20/9 0.5 on 05/28/2025 to a value of 19.8 today. Procalcitonin has improved from 1.6 on 05/28/2025 to a value of 1.0 today. Repeat COVID, influenza, RSV RT PCR assay on 05/28/2020 5-. Plan: Overall the patient continues to improve. Her leukocytosis has resolved, she is afebrile, her oxygenation has improved and her CRP and procalcitonin are decreasing on ceftriaxone and azithromycin, both started 05/26/2025. Will continue. Continue Solu-Medrol 50 mg IV q.6 hours (day 2). Blood cultures, respiratory pathogen panel, urine Legionella, urine pneumococcal and serum IgM for mycoplasma all pending. I will check a chest x-ray on 05/30/2025. Discussed with Loni Pettit, will follow with you. (2) Acute respiratory failure with hypoxia: Code(s): J96.01 - Acute respiratory failure with hypoxia Status: Acute Assessment and Plan: Patient initially on no oxygen at home with no respiratory limitations. She has had 2 ABGs the last on 10 L with pH of 7.44/38/55. There is no evidence of hypercarbic respiratory failure. 05/26 16:00 room air, sats 93% 05/26 21:00 4 L NC, sats 92% 05/27 08:00 4 L NC, sats 91% 05/27 20:00 4 L NC, sats 90% 05/28 05:30 10 L NC, sats 86%, ABG 7.44/38.55 05/28 6:15 Airvo 30 L, 65%, sats 93% 05/28 11:00 Airvo 30 L, 65%, sats 95% 05/28 20:00 Airvo 30 L, 65%, sats 95% 05/29 07:45 Airvo 30 L, 65%, sats 94% 05/29 11:20 7 L NC, sats 92% goal saturation 90-94%, adjust oxygen accordingly. Subjective Date/time seen: 05/29/25 11:49 Interval history: 05/28/25 This is a new pulmonary consult for pneumonia with hypoxemic respiratory failure. 65-year-old with a history of hypertension, gastric bypass with revision in 2012, GERD, gout, hypothyroidism, neuropathy, chronic knee pain. Patient has no history of asthma, COPD, recurrent pneumonias. Patient is a never smoker. She was exposed to secondhand smoke from both of her parents and from [id number]. 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 At baseline the patient tells me she can walk 1 and half blocks but has to stop for knee pain rather than any breathing issues. She has no respiratory limitations in her activities of daily living. She is on no home O2. Patient is in the process of extensive dental work and on 05/24/2025 she had 6 teeth pulled under local anesthesia. Prior to this procedure and after this procedure she had no breathing problems. She was in pain but had no cough or phlegm production. She slept that night. On 05/25/2025 the patient woke up and had rattling in her chest, chills, rigors, shortness of breath. Patient states her phlegm was read and could have been blood. She was fatigued. She went to bed and slept all night and most of the morning on 05/26/2025. 05/26/25: She woke up with worse headache of her life and presented to the emergency department. In the emergency department her blood pressure was 122/68, heart rate 105, respirations 22, room air saturations 93%. Her weight was 113.5 she was afebrile. White blood cell count 14.3, bands were 5%, no eosinophils, creatinine 0.67, COVID, influenza, RSV RT PCR assay negative. Chest x-ray with bilateral pneumonia. CT angiogram of the chest with no PE, patchy ground-glass consolidative infiltrates throughout all the right lung, lasts pronounced in the left upper lobe and left lower lobe. Patient was placed on Rocephin and azithromycin. 05/27/2025. Patient had mild improvement. At 8:00 a.m. she was on 4 L nasal cannula saturations 91%. Her white blood cell count was 12.2 she was afebrile. ABG on 4 L was 7.43/39/60. Patient gone into AFib RVR and was placed on metoprolol and Xarelto per Cardiology. At 8:00 p.m. patient was on 4 L nasal cannula saturations 90%. 05/28/2025. Overall patient feels a little worse than yesterday she is more tired, she states that she has 25% back to her normal and improved since admission. She has more coughing today but less phlegm. She has no hemoptysis and yellow phlegm. If 5:30 a.m. she was on 10 L nasal cannula with desats and an ABG of 7.44/38/55 and was placed on Airvo 30 L and 65% with saturations 95%. white blood cell count is 9.2, creatinine is 0.82, CRP is 29.5, BNP is 4520, procalcitonin is 1.6. chest x-ray today unchanged compared to 05/27/2025 with diffuse infiltrates throughout the lower right lung field with decreased lung volumes on the right minimal infiltrates in the left base. 05/29/2025: Overall the patient tells me she is the same as yesterday but a 1000 times better than when she presented. Her shortness of breath at rest and dyspnea on exertion or unchanged. She states her cough is worse but is now dry which is better. When I enter the room she was on Airvo 30 L 65% FiO2 with saturations 94%. I decreased her to nasal cannula oxygen and sequentially decreased her to 7 L nasal cannula her saturations were 92%. She is afebrile. White blood cell count 7.4, creatinine 0.76. CRP has improved from 20/9 0.5 on 05/28/2025 to a value of 19.8 today. Procalcitonin has improved from 1.6 on 05/28/2025 to a value of 1.0 today. DATA: 05/27/25: Echo Summary Summary 1. Complete two-dimensional, color flow and Doppler transthoracic echocardiogram is performed. 2. Small amount of mitral and tricuspid regurgitation. 3. Otherwise structurally normal appearing heart. 4. Atrial fibrillation. Left Ventricle Left ventricular chamber dimension is normal. Left ventricular systolic function is normal, estimated at 65-70. Right Ventricle Right ventricular chamber dimension is normal. Left Atria Left atrial chamber dimension is normal. Right Atria Right atrial chamber dimension is normal. Tricuspid peak gradient 26. 05/27/2025: ULTRASOUND ABDOMEN LIMITED (RIGHT UPPER QUADRANT) Clinical History: Transaminitis Comparison: CT chest 1 day prior Technique: Right upper quadrant sonography Findings: Liver: Normal size. Normal echotexture. No intrahepatic biliary ductal dilatation. Normal hepatopedal flow main portal vein. Micronodular contour. Common Duct: 7 mm. Gallbladder: Removed. Pancreas: Obscured by bowel gas. Right kidney: Unremarkable. Retrohepatic IVC: Unremarkable. IMPRESSION: 1. Hepatomegaly, with steatosis and/or diffuse hepatocellular disease. 2. Cirrhosis not excluded. 05/26/2025: EXAMINATION: CTA chest PE protocol DATE: 05/26/2025 18:29 CDT INDICATION: Pneumonia. Hemoptysis. TECHNIQUE: Computed tomographic angiography (CTA) of the chest was performed with 100 mL Omnipaque-350 intravenous contrast. The dose-length product was 885.28 mGy-cm. Maximum intensity projection 3D-reconstructions of the aorta and other arteries were constructed by the technologist on a separate workstation. COMPARISON: Chest x-ray dated 05/26/2025. FINDINGS: Study is technically adequate without evidence for pulmonary embolism. There is right hilar and subcarinal lymphadenopathy, likely reactive. There are bilateral breast implants. No significant pleural or pericardial effusion. There is extensive bilateral airspace consolidation, more so on the right, consistent with pneumonia. Airspace disease is most confluent in the right lower lobe. No endobronchial lesions. No pneumothorax. No significant pleural or pericardial effusion. There is surgical changes in the left upper abdomen. IMPRESSION: 1. Extensive bilateral airspace disease, compatible with pneumonia, right greater than left. 2: Enlarged mediastinal and right hilar lymph nodes, likely reactive. 12/15/2024: CHEST RADIOGRAPH CLINICAL HISTORY: fall . COMPARISON: 10/23/2021 TECHNIQUE: Single portable view of the chest. FINDINGS Significant elevation of the right hemidiaphragm with adjacent compressive atelectasis. The remainder of the lungs are clear. Dorsal column stimulator device is noted. The remainder of the cardiomediastinal silhouette is otherwise unremarkable. IMPRESSION: Elevation of the right hemidiaphragm with adjacent compressive atelectasis. The remainder of the lungs are clear. Review of Systems Constitutional: Constitutional: Reports no additional constitutional complaints Eyes: Eyes: Reports no additional eye complaints ENT: Reports system reviewed and no additional complaints, except as documented Cardiovascular: Cardiovascular: Reports no additional cardiovascular complaints Respiratory: Respiratory: Reports no additional respiratory complaints Gastrointestinal: Gastrointestinal: Reports no additional gastrointestinal complaints Musculoskeletal: Musculoskeletal: Reports no additional musculoskeletal complaints Neurologic: Reports system reviewed and no additional complaints, except as documented Psychiatric: Psychiatric: Reports no additional psychiatric complaints Endocrine: Endocrine: Reports no additional endocrine complaints Hematologic/Lymphatic: Hematologic/Lymphatic: Reports no additional hematologic/lymphatic complaints Allergic/Immunologic: Allergic/Immunologic: Reports no additional allergic/immunologic complaints Exam Const: General: cooperative, comfortable and no acute distress Orientation/consciousness: oriented to person, oriented to place and oriented to time HENMT: Head: normal to inspection Ears: hearing grossly normal bilaterally Eyes: General: appearance normal, both eyes and all related structures Neck: Neck: normal visual inspection Chest: Chest palpation & inspection: normal inspection of the chest Resp: Effort & Inspection: normal respiratory effort and able to speak in complete sentences Auscultation: crackles, no rales, no rhonchi, no wheezes and lung sounds not diminished Other: Diffuse crackles right lung and left base. Cardio: Jugular venous distension: no JVD GI: Inspection: normal to inspection Skin: General skin exam: normal color Neuro: General: oriented to person, oriented to place and oriented to time Extrem: General: normal to inspection and no edema Psych: Appearance: grossly normal Objective Data Vital Signs Vital Signs: Vital Signs - 24 hr 05/28/25 12:00 05/28/25 12:00 05/28/25 12:00 Temperature 36.9 C 37.1 C Pulse Rate 107 H 134 H 134 H Respiratory Rate 16 24 H Blood Pressure 90/62 L 97/79 L 97/79 L Pulse Oximetry 98 94 Oxygen Delivery Oxygen Flow Rate Fraction of Inspired Oxygen 05/28/25 12:00 05/28/25 12:00 05/28/25 12:40 Temperature Pulse Rate 118 H 110 H Respiratory Rate Blood Pressure 97/79 L Pulse Oximetry 93 Oxygen Delivery High Flow Nasal Cannula Oxygen Flow Rate 30 Fraction of Inspired Oxygen 65 05/28/25 12:44 05/28/25 13:17 05/28/25 13:21 Temperature Pulse Rate 110 H 117 H 102 H Respiratory Rate 20 20 Blood Pressure 97/79 L Pulse Oximetry Oxygen Delivery Oxygen Flow Rate Fraction of Inspired Oxygen 05/28/25 14:00 05/28/25 16:00 05/28/25 16:00 Temperature Pulse Rate 132 H 119 H Respiratory Rate Blood Pressure Pulse Oximetry 96 Oxygen Delivery High Flow Nasal Cannula Oxygen Flow Rate 30 Fraction of Inspired Oxygen 65 05/28/25 16:11 05/28/25 16:37 05/28/25 16:44 Temperature 36.8 C Pulse Rate 122 H 117 H 106 H Respiratory Rate 20 19 19 Blood Pressure 95/59 L Pulse Oximetry 93 Oxygen Delivery Oxygen Flow Rate Fraction of Inspired Oxygen 05/28/25 18:00 05/28/25 19:42 05/28/25 19:47 Temperature Pulse Rate 128 H 129 H 129 H Respiratory Rate 20 20 Blood Pressure Pulse Oximetry Oxygen Delivery Oxygen Flow Rate Fraction of Inspired Oxygen 05/28/25 20:00 05/28/25 20:00 05/28/25 20:00 Temperature 36.9 C Pulse Rate 145 H 135 H 130 H Respiratory Rate 20 Blood Pressure 105/84 Pulse Oximetry 92 90 Oxygen Delivery High Flow Nasal Cannula Oxygen Flow Rate 30 Fraction of Inspired Oxygen 65 05/28/25 21:20 05/28/25 21:35 05/28/25 21:59 Temperature Pulse Rate 129 H 140 H 141 H Respiratory Rate 18 Blood Pressure 122/65 Pulse Oximetry 90 Oxygen Delivery High Flow Therapy with Na Oxygen Flow Rate 30 Fraction of Inspired Oxygen 66 05/28/25 23:28 05/28/25 23:30 05/29/25 00:00 Temperature 36.5 C Pulse Rate 123 H 133 H 114 H Respiratory Rate 20 Blood Pressure 96/65 L Pulse Oximetry 92 96 Oxygen Delivery High Flow Nasal Cannula Oxygen Flow Rate 30 Fraction of Inspired Oxygen 65 05/29/25 02:00 05/29/25 04:00 05/29/25 04:00 Temperature Pulse Rate 110 H 100 100 Respiratory Rate Blood Pressure Pulse Oximetry 94 Oxygen Delivery High Flow Nasal Cannula Oxygen Flow Rate 30 Fraction of Inspired Oxygen 65 05/29/25 04:00 05/29/25 06:00 05/29/25 07:28 Temperature 36.4 C Pulse Rate 102 H 102 H Respiratory Rate 18 Blood Pressure 104/71 Pulse Oximetry 91 92 Oxygen Delivery High Flow Therapy with Na Oxygen Flow Rate 30 Fraction of Inspired Oxygen 65 05/29/25 07:28 05/29/25 07:40 05/29/25 07:52 Temperature 36.4 C Pulse Rate 100 102 H 120 H Respiratory Rate 20 20 22 H Blood Pressure 102/86 Pulse Oximetry 94 Oxygen Delivery Oxygen Flow Rate Fraction of Inspired Oxygen 05/29/25 07:56 05/29/25 08:00 05/29/25 10:00 Temperature Pulse Rate 114 H 109 H Respiratory Rate Blood Pressure Pulse Oximetry 94 Oxygen Delivery High Flow Nasal Cannula Oxygen Flow Rate 30 Fraction of Inspired Oxygen 65 05/29/25 11:45 Temperature Pulse Rate 102 H Respiratory Rate 20 Blood Pressure Pulse Oximetry Oxygen Delivery Oxygen Flow Rate Fraction of Inspired Oxygen Intake/Output Intake/Output: Intake & Output 05/26/25 05/27/25 05/28/25 05/29/25 23:59 23:59 23:59 23:59 Intake Total 1603.3 1510 1946.6 450 Output Total 300 1850 2760 Balance 1303.3 -340 -813.4 450 Meds/Results Medications: Active Medications Generic Name Dose Route Start Last Admin Trade Name Freq PRN Reason Stop Dose Admin Acetaminophen 650 mg 05/26/25 18:40 05/27/25 09:59 Acetaminophen 325 Mg Tablet PO 650 mg Q4H PRN Administration Mild Pain (1-3) or Fever Hydrocodone Bitart/Acetaminophen 1 tab 05/27/25 20:59 05/28/25 20:28 Hydrocodone/Acetaminophen (*Crx) 5-325 Mg Tablet PO 1 tab Q6H PRN Administration Pain Rated 4-10 Amitriptyline HCl 150 mg 05/27/25 21:00 05/28/25 20:17 Amitriptyline Hcl 25 Mg Tablet PO 150 mg HS IRENE Administration Benzonatate 200 mg 05/28/25 14:03 Benzonatate 100 Mg Capsule PO TID PRN Cough Budesonide 0.5 mg 05/28/25 20:00 05/29/25 07:28 Budesonide Respule Neb 0.5 Mg/2 Ml Amp INHALATION 0.5 mg Q12HRT IRENE Administration Bupropion HCl 150 mg 05/26/25 21:15 05/28/25 20:18 Bupropion Hcl Xl (24 Hr) 150 Mg Tabcr PO 150 mg HS IRENE Administration Buspirone HCl 10 mg 05/26/25 21:20 05/29/25 09:16 Buspirone Hcl 10 Mg Tablet PO 10 mg BID IRENE Administration Calcium Citrate 2 tablet 05/27/25 09:00 05/29/25 09:16 Calcium Citrate 315 Mg/Vitamin D 6.25 Mcg (250 Units) Tab PO 2 tablet BID IRENE Administration Cyclobenzaprine HCl 10 mg 05/28/25 14:03 05/29/25 09:13 Cyclobenzaprine Hcl 10 Mg Tablet PO 10 mg Q8H PRN Administration Muscle Spasm Diltiazem HCl 120 mg 05/28/25 12:30 05/29/25 09:15 Diltiazem Hcl Cd 120 Mg Cap.24hr PO 120 mg QAM IRENE Administration Furosemide 20 mg 05/29/25 09:00 05/29/25 09:15 Furosemide 20 Mg Tablet PO 20 mg DAILY IRENE Administration Gabapentin 800 mg 05/26/25 21:15 05/29/25 09:14 Gabapentin 400 Mg Capsule PO 800 mg Q12HR IRENE Administration Guaifenesin 1,200 mg 05/26/25 21:40 05/29/25 09:14 Guaifenesin 12 Hr 600 Mg Tabcr PO 1,200 mg Q12HR IRENE Administration Hydrocortisone Sodium Succinate 50 mg 05/28/25 12:05 05/29/25 11:48 Hydrocortisone Sodium Succinate 100 Mg/2 Ml Vial IV PUSH 50 mg Q6HR IRENE Administration Ceftriaxone Sodium 1 gm/ 50 mls @ 100 mls/hr 05/26/25 21:30 05/29/25 09:15 Sodium Chloride IVPB 100 mls/hr DAILY IRENE Administration Azithromycin 500 mg/ Sodium 250 mls @ 250 mls/hr 05/29/25 10:00 05/29/25 09:55 Chloride IVPB 250 mls/hr Q24H IRENE Administration Ipratropium [place] 0.5 mg 05/28/25 12:00 05/29/25 11:43 Ipratropium Br 0.02% Inh Soln 0.5 Mg/2.5 Ml Vial INHALATION 0.5 mg [id number] IRENE Administration Levothyroxine Sodium 75 mcg 05/27/25 06:30 05/29/25 06:21 Levothyroxine Sodium 75 Mcg Tablet PO 75 mcg DAILY@0630 IRENE Administration Lidocaine 1 patch 05/28/25 14:05 05/29/25 09:14 Lidocaine 5% Patch TRANSDERM 1 patch DAILY IRENE Administration Multivitamins/Minerals 1 tab 05/27/25 09:00 05/29/25 09:14 Multivitamins /C Lutein (Centrum Silver) Tablet *Bkc PO 1 tab DAILY IRENE Administration Ondansetron HCl 4 mg 05/26/25 21:08 Ondansetron Inj 4 Mg/2 Ml Vial IV PUSH Q6H PRN Nausea And Vomiting Pantoprazole Sodium 40 mg 05/27/25 09:00 05/29/25 09:14 Pantoprazole 40 Mg Tablet PO 40 mg QAM IRENE Administration Perflutren Lipid Microsphere 0 ml 05/27/25 09:56 Perflutren Lipid Microspheres 1.5 Ml Vial Diluted To 10 Ml Total Volume IV PUSH 05/30/25 09:56 ONCE PRN adequate visualization Protocol Quetiapine Fumarate 100 mg 05/26/25 21:40 05/28/25 20:17 Quetiapine Fumarate 100 Mg Tablet PO 100 mg HS IRENE Administration Quetiapine Fumarate 50 mg 05/26/25 21:40 05/28/25 20:17 Quetiapine Fumarate 25 Mg Tablet PO 50 mg HS IRENE Administration Rivaroxaban 15 mg 05/28/25 17:00 05/28/25 16:15 Rivaroxaban 15 Mg Tablet PO 15 mg DAILY@1700 IRENE Administration Vitamin D 125 mcg 05/27/25 09:00 05/29/25 09:15 Cholecalciferol (Vitamin D3) 125 Mcg (5,000 Units) Tablet PO 125 mcg DAILY IRENE Administration Radiology Results: ITS Impressions Chest CTA 05/26/25 18:29 IMPRESSION: 1. Extensive bilateral airspace disease, compatible with pneumonia, right greater than left. 2: Enlarged mediastinal and right hilar lymph nodes, likely reactive. Abdomen Ultrasound 05/27/25 09:25 IMPRESSION: 1. Hepatomegaly, with steatosis and/or diffuse hepatocellular disease. 2. Cirrhosis not excluded. Chest X-Ray 05/28/25 10:28 IMPRESSION: 1. No significant change. 2. Bilateral pneumonia, right lung worse. Labs Labs: Laboratory Results - last 24 hr 05/28/25 05/29/25 11:42 04:24 WBC 7.4 RBC 3.63 L Hgb 11.8 L Hct 37.1 MCV 102.2 H MCH 32.5 MCHC 31.8 L RDW 14.0 Plt Count 237 MPV 9.9 Sodium 135 L Potassium 3.7 Chloride 102 Carbon Dioxide 27 Anion Gap 6 BUN 14 Creatinine 0.76 Estim Creat Clear Calc 86 Estimated GFR > 60 Glucose 115 H Calcium 9.0 Magnesium 2.0 Total Bilirubin 0.4 AST 40 H ALT 87 H Alkaline Phosphatase 152 H C-Reactive Protein 19.8 H Total Protein 6.3 Albumin 3.3 L Procalcitonin 1.0 Influenza A (RT-PCR) Negative Influenza B (RT-PCR) Negative RSV (RT-PCR) Negative SARS-CoV-2 RNA (RT-PCR) Negative
--- NOTE | 2025-05-29 12:06 | PM.PNCARD ---
Progress Note: A&P Assessment and Plan (1) Atrial fibrillation with rapid ventricular response: Code(s): I48.91 - Unspecified atrial fibrillation Status: Acute Plan Atrial fibrillation new onset in the setting of acute hypoxemic respiratory failure Atrial fibrillation with RVR Acute hypoxemic respiratory failure on oxygen Acute on chronic diastolic heart failure Hypothyroidism Plan Treatment of underlying pneumonia per primary team Change diltiazem to 240 mg daily Xarelto 15 mg daily Lasix 20 mg p.o. b.i.d. Levothyroxine Patient claims she had a reaction to metoprolol Subjective Date/time seen: 05/29/25 12:06 Interval history: Patient seen for evaluation of AFib with RVR Patient complains of shortness of breath with mild activity Telemetry AFib RVR heart rate 101 110 Review of Systems Review of Systems: All systems reviewed & are unremarkable except as noted in HPI and below Exam Const: General: comfortable, no acute distress, alert and awake Orientation/consciousness: patient oriented x3 HENMT: Head: normal to inspection Eyes: General: appearance normal, both eyes and all related structures Pupils: Equal, round and reactive pupils present Neck: Neck: normal visual inspection, supple and no JVD Carotids: normal carotid upstroke Resp: Effort & Inspection: normal respiratory effort Auscultation: crackles and rhonchi Other: Conversational dyspnea Cardio: Rate: tachycardic Rhythm: abnormal rhythm irregularly irregular Heart sounds: S1 normal heart sound present, S2 normal heart sound present and no murmurs GI: Auscultation: normal bowel sounds Skin: General skin exam: normal color Neuro: General: patient oriented x3 Cranial nerves: Yes Equal, round and reactive pupils present Extrem: General: normal to inspection Psych: Appearance: grossly normal Mental Status: mental status grossly normal Objective Data Vital Signs Vital Signs: Vital Signs - 24 hr 05/28/25 12:40 05/28/25 12:44 05/28/25 13:17 Temperature Pulse Rate 110 H 110 H 117 H Respiratory Rate 20 Blood Pressure 97/79 L 97/79 L Pulse Oximetry Oxygen Delivery Oxygen Flow Rate Fraction of Inspired Oxygen 05/28/25 13:21 05/28/25 14:00 05/28/25 16:00 Temperature Pulse Rate 102 H 132 H Respiratory Rate 20 Blood Pressure Pulse Oximetry 96 Oxygen Delivery High Flow Nasal Cannula Oxygen Flow Rate 30 Fraction of Inspired Oxygen 65 05/28/25 16:00 05/28/25 16:11 05/28/25 16:37 Temperature 36.8 C Pulse Rate 119 H 122 H 117 H Respiratory Rate 20 19 Blood Pressure 95/59 L Pulse Oximetry 93 Oxygen Delivery Oxygen Flow Rate Fraction of Inspired Oxygen 05/28/25 16:44 05/28/25 18:00 05/28/25 19:42 Temperature Pulse Rate 106 H 128 H 129 H Respiratory Rate 19 20 Blood Pressure Pulse Oximetry Oxygen Delivery Oxygen Flow Rate Fraction of Inspired Oxygen 05/28/25 19:47 05/28/25 20:00 05/28/25 20:00 Temperature 36.9 C Pulse Rate 129 H 145 H 135 H Respiratory Rate 20 20 Blood Pressure 105/84 Pulse Oximetry 92 90 Oxygen Delivery High Flow Nasal Cannula Oxygen Flow Rate 30 Fraction of Inspired Oxygen 65 05/28/25 20:00 05/28/25 21:20 05/28/25 21:35 Temperature Pulse Rate 130 H 129 H 140 H Respiratory Rate 18 Blood Pressure 122/65 Pulse Oximetry 90 Oxygen Delivery High Flow Therapy with Na Oxygen Flow Rate 30 Fraction of Inspired Oxygen 66 05/28/25 21:59 05/28/25 23:28 05/28/25 23:30 Temperature 36.5 C Pulse Rate 141 H 123 H 133 H Respiratory Rate 20 Blood Pressure 96/65 L Pulse Oximetry 92 96 Oxygen Delivery High Flow Nasal Cannula Oxygen Flow Rate 30 Fraction of Inspired Oxygen 65 05/29/25 00:00 05/29/25 02:00 05/29/25 04:00 Temperature Pulse Rate 114 H 110 H 100 Respiratory Rate Blood Pressure Pulse Oximetry 94 Oxygen Delivery High Flow Nasal Cannula Oxygen Flow Rate 30 Fraction of Inspired Oxygen 65 05/29/25 04:00 05/29/25 04:00 05/29/25 06:00 Temperature 36.4 C Pulse Rate 100 102 H 102 H Respiratory Rate 18 Blood Pressure 104/71 Pulse Oximetry 91 Oxygen Delivery Oxygen Flow Rate Fraction of Inspired Oxygen 05/29/25 07:28 05/29/25 07:28 05/29/25 07:40 Temperature Pulse Rate 100 102 H Respiratory Rate 20 20 Blood Pressure Pulse Oximetry 92 Oxygen Delivery High Flow Therapy with Na Oxygen Flow Rate 30 Fraction of Inspired Oxygen 65 05/29/25 07:52 05/29/25 07:56 05/29/25 08:00 Temperature 36.4 C Pulse Rate 120 H 114 H Respiratory Rate 22 H Blood Pressure 102/86 Pulse Oximetry 94 94 Oxygen Delivery High Flow Nasal Cannula Oxygen Flow Rate 30 Fraction of Inspired Oxygen 65 05/29/25 10:00 05/29/25 11:45 05/29/25 11:49 Temperature 36.4 C Pulse Rate 109 H 102 H 118 H Respiratory Rate 20 22 H Blood Pressure 110/76 Pulse Oximetry 94 Oxygen Delivery Oxygen Flow Rate Fraction of Inspired Oxygen 05/29/25 11:52 Temperature Pulse Rate 125 H Respiratory Rate 20 Blood Pressure Pulse Oximetry Oxygen Delivery Oxygen Flow Rate Fraction of Inspired Oxygen Intake/Output Intake/Output: Intake & Output 05/26/25 05/27/25 05/28/25 05/29/25 23:59 23:59 23:59 23:59 Intake Total 1603.3 1510 1946.6 450 Output Total 300 1850 2760 Balance 1303.3 -340 -813.4 450 Meds/Results Medications: Active Medications Generic Name Dose Route Start Last Admin Trade Name Freq PRN Reason Stop Dose Admin Acetaminophen 650 mg 05/26/25 18:40 05/27/25 09:59 Acetaminophen 325 Mg Tablet PO 650 mg Q4H PRN Administration Mild Pain (1-3) or Fever Hydrocodone Bitart/Acetaminophen 1 tab 05/27/25 20:59 05/28/25 20:28 Hydrocodone/Acetaminophen (*Crx) 5-325 Mg Tablet PO 1 tab Q6H PRN Administration Pain Rated 4-10 Amitriptyline HCl 150 mg 05/27/25 21:00 05/28/25 20:17 Amitriptyline Hcl 25 Mg Tablet PO 150 mg HS IRENE Administration Benzonatate 200 mg 05/28/25 14:03 Benzonatate 100 Mg Capsule PO TID PRN Cough Budesonide 0.5 mg 05/28/25 20:00 05/29/25 07:28 Budesonide Respule Neb 0.5 Mg/2 Ml Amp INHALATION 0.5 mg Q12HRT IRENE Administration Bupropion HCl 150 mg 05/26/25 21:15 05/28/25 20:18 Bupropion Hcl Xl (24 Hr) 150 Mg Tabcr PO 150 mg HS IRENE Administration Buspirone HCl 10 mg 05/26/25 21:20 05/29/25 09:16 Buspirone Hcl 10 Mg Tablet PO 10 mg BID IRENE Administration Calcium Citrate 2 tablet 05/27/25 09:00 05/29/25 09:16 Calcium Citrate 315 Mg/Vitamin D 6.25 Mcg (250 Units) Tab PO 2 tablet BID IRENE Administration Cyclobenzaprine HCl 10 mg 05/28/25 14:03 05/29/25 09:13 Cyclobenzaprine Hcl 10 Mg Tablet PO 10 mg Q8H PRN Administration Muscle Spasm Diltiazem HCl 240 mg 05/30/25 09:00 Diltiazem Hcl Cd 120 Mg Cap.24hr PO QAM IRENE Furosemide 20 mg 05/29/25 09:00 05/29/25 09:15 Furosemide 20 Mg Tablet PO 20 mg DAILY IRENE Administration Gabapentin 800 mg 05/26/25 21:15 05/29/25 09:14 Gabapentin 400 Mg Capsule PO 800 mg Q12HR IRENE Administration Guaifenesin 1,200 mg 05/26/25 21:40 05/29/25 09:14 Guaifenesin 12 Hr 600 Mg Tabcr PO 1,200 mg Q12HR IRENE Administration Hydrocortisone Sodium Succinate 50 mg 05/28/25 12:05 05/29/25 11:48 Hydrocortisone Sodium Succinate 100 Mg/2 Ml Vial IV PUSH 50 mg Q6HR IRENE Administration Ceftriaxone Sodium 1 gm/ 50 mls @ 100 mls/hr 05/26/25 21:30 05/29/25 09:15 Sodium Chloride IVPB 100 mls/hr DAILY IRENE Administration Azithromycin 500 mg/ Sodium 250 mls @ 250 mls/hr 05/29/25 10:00 05/29/25 09:55 Chloride IVPB 250 mls/hr Q24H IRENE Administration Ipratropium [place] 0.5 mg 05/28/25 12:00 05/29/25 11:43 Ipratropium Br 0.02% Inh Soln 0.5 Mg/2.5 Ml Vial INHALATION 0.5 mg [id number] IRENE Administration Levothyroxine Sodium 75 mcg 05/27/25 06:30 05/29/25 06:21 Levothyroxine Sodium 75 Mcg Tablet PO 75 mcg DAILY@0630 IRENE Administration Lidocaine 1 patch 05/28/25 14:05 05/29/25 09:14 Lidocaine 5% Patch TRANSDERM 1 patch DAILY IRENE Administration Multivitamins/Minerals 1 tab 05/27/25 09:00 05/29/25 09:14 Multivitamins /C Lutein (Centrum Silver) Tablet *Bkc PO 1 tab DAILY IRENE Administration Ondansetron HCl 4 mg 05/26/25 21:08 Ondansetron Inj 4 Mg/2 Ml Vial IV PUSH Q6H PRN Nausea And Vomiting Pantoprazole Sodium 40 mg 05/27/25 09:00 05/29/25 09:14 Pantoprazole 40 Mg Tablet PO 40 mg QAM IRENE Administration Perflutren Lipid Microsphere 0 ml 05/27/25 09:56 Perflutren Lipid Microspheres 1.5 Ml Vial Diluted To 10 Ml Total Volume IV PUSH 05/30/25 09:56 ONCE PRN adequate visualization Protocol Quetiapine Fumarate 100 mg 05/26/25 21:40 05/28/25 20:17 Quetiapine Fumarate 100 Mg Tablet PO 100 mg HS IRENE Administration Quetiapine Fumarate 50 mg 05/26/25 21:40 05/28/25 20:17 Quetiapine Fumarate 25 Mg Tablet PO 50 mg HS IRENE Administration Rivaroxaban 15 mg 05/28/25 17:00 05/28/25 16:15 Rivaroxaban 15 Mg Tablet PO 15 mg DAILY@1700 IRENE Administration Vitamin D 125 mcg 05/27/25 09:00 05/29/25 09:15 Cholecalciferol (Vitamin D3) 125 Mcg (5,000 Units) Tablet PO 125 mcg DAILY IRENE Administration Radiology Results: ITS Impressions Chest CTA 05/26/25 18:29 IMPRESSION: 1. Extensive bilateral airspace disease, compatible with pneumonia, right greater than left. 2: Enlarged mediastinal and right hilar lymph nodes, likely reactive. Abdomen Ultrasound 05/27/25 09:25 IMPRESSION: 1. Hepatomegaly, with steatosis and/or diffuse hepatocellular disease. 2. Cirrhosis not excluded. Chest X-Ray 05/28/25 10:28 IMPRESSION: 1. No significant change. 2. Bilateral pneumonia, right lung worse. Labs Labs: Laboratory Results - last 24 hr 05/28/25 05/29/25 11:42 04:24 WBC 7.4 RBC 3.63 L Hgb 11.8 L Hct 37.1 MCV 102.2 H MCH 32.5 MCHC 31.8 L RDW 14.0 Plt Count 237 MPV 9.9 Sodium 135 L Potassium 3.7 Chloride 102 Carbon Dioxide 27 Anion Gap 6 BUN 14 Creatinine 0.76 Estim Creat Clear Calc 86 Estimated GFR > 60 Glucose 115 H Calcium 9.0 Magnesium 2.0 Total Bilirubin 0.4 AST 40 H ALT 87 H Alkaline Phosphatase 152 H C-Reactive Protein 19.8 H Total Protein 6.3 Albumin 3.3 L Procalcitonin 1.0 Influenza A (RT-PCR) Negative Influenza B (RT-PCR) Negative RSV (RT-PCR) Negative SARS-CoV-2 RNA (RT-PCR) Negative
[2025-05-29] MEDS: HYDROcodone/acetaminophen (*CRX) 5-325 MG TABLET 1 TAB PO ×2 (14:04→21:34)
[2025-05-29] MEDS: RIVAROXABAN 15 MG TABLET PO (17:24)
[2025-05-29] MEDS: SALINE 0.65% NAS SOLN 44 ML BTL 1 SPRAY NASAL (19:46)
[2025-05-29] MEDS: buPROPion HCL XL (24 HR) 150 MG TABCR PO (21:33)
[2025-05-29] MEDS: AMITRIPTYLINE HCL 25 MG TABLET 150 MG PO (21:34)
[2025-05-30] VITALS (29 sets, daily range): BP systolic 95–139; BP diastolic 63–100; PULSE 93–148; RESP 16–20; TEMP 36.4–36.9; O2SAT 90–97
[2025-05-30] MEDS: HYDROcodone/acetaminophen (*CRX) 5-325 MG TABLET 1 TAB PO (03:55)
[2025-05-30] MEDS: CYCLOBENZAPRINE HCL 10 MG TABLET PO (03:56)
[2025-05-30 04:15] LABS: Hematocrit 38.8 % (37.0-47.0); Hemoglobin 11.5 g/dL (12.0-15.0); Mean Corpuscular HGB Conc 29.6 g/dl (32-36); Mean Corpuscular Hemoglobin 32.2 pg (26-34); Mean Corpuscular Volume 108.7 fl (80-100); Platelet Count Result 227 k/mm3 (150-375); Red Blood Count 3.57 M/mm3 (4.2-5.4); White Blood Count 7.1 K/mm3 (4.5-10.0)
[2025-05-30 04:37] LABS: Alanine Aminotransferase 61 U/L (6-35); Albumin Level 2.8 g/dL (3.5-5.1); Alkaline Phosphatase 136 U/L (38-126); Anion Gap 5 mmol/L (4-12); Aspartate Amino Transferase 25 U/L (14-36); Bilirubin,Total 0.3 mg/dL (0.2-1.3); Blood Urea Nitrogen 17 mg/dL (7-17); Calcium 8.9 mg/dL (8.4-10.2); Carbon Dioxide 25 mmol/L (22-30); Chloride 106 mmol/L (98-107); Estimated CRCL calculation 96 ml/min; Estimated Glomerular Filt Rate > 60; Glucose 109 mg/dL (65-110); Magnesium 2.1 mg/dL (1.6-2.3); Potassium 4.2 mmol/L (3.4-5.0); Sodium 136 mmol/L (137-145); Total Protein 5.5 g/dL (6.3-8.2)
[2025-05-30] MEDS: LEVOTHYROXINE SODIUM 75 MCG TABLET PO (06:19)
[2025-05-30] MEDS: HYDROCORTISONE SODIUM SUCCINATE 100 MG/2 ML VIAL 50 MG IV PUSH (06:19)
[2025-05-30] MEDS: BUDESONIDE RESPULE NEB 0.5 MG/2 ML AMP INHALATION ×2 (07:34→20:29)
[2025-05-30] MEDS: IPRATROPIUM BR 0.02% INH SOLN 0.5 MG/2.5 ML VIAL INHALATION ×4 (07:34→20:30)
[2025-05-30] MEDS: FUROSEMIDE 20 MG TABLET PO (08:48)
[2025-05-30] MEDS: CALCIUM CITRATE 315 MG/VITAMIN D 6.25 MCG (250 UNITS) TAB 2 TABLET PO ×2 (08:48→17:52)
[2025-05-30] MEDS: dilTIAZem HCL CD 120 MG CAP.24HR 240 MG PO (08:48)
[2025-05-30] MEDS: CHOLECALCIFEROL (VITAMIN D3) 125 MCG (5,000 UNITS) TABLET PO (08:48)
[2025-05-30] MEDS: GABAPENTIN 400 MG CAPSULE 800 MG PO ×2 (08:48→21:36)
[2025-05-30] MEDS: MULTIVITAMINS /C LUTEIN (CENTRUM SILVER) TABLET *BKC 1 TAB PO (08:48)
[2025-05-30] MEDS: guaiFENesin 12 HR 600 MG TABCR 1200 MG PO ×2 (08:48→21:36)
[2025-05-30] MEDS: PANTOPRAZOLE 40 MG TABLET PO (08:48)
[2025-05-30] MEDS: LIDOCAINE 5% PATCH 1 PATCH TRANSDERM (08:51)
[2025-05-30] MEDS: cefTRIAXone 1 GM in SODIUM CHLORIDE 0.9% IV 50 ML 100 ML IVPB (08:52)
--- NOTE | 2025-05-30 09:26 | P.PNCA_ITS ---
Progress Note: A&P Assessment and Plan (1) Atrial fibrillation with rapid ventricular response: Code(s): I48.91 - Unspecified atrial fibrillation Status: Acute Assessment and Plan: Atrial fibrillation with rapid ventricular response, rates in the 120s to 140s. This is a new diagnosis in the setting of acute illness with pneumonia. Discussed this diagnosis with her including pathophysiology, management strategy is, and risks/complications. For the time being, we will pursue a rate control and anticoagulation strategy. * She was shifted from metoprolol to dilitiazem reportedly because of a reaction to metoprolol, however patient states she did not have any adverse effects with metoprolol * Nevertheless, continue diltiazem 240mg daily and will give one dose of digoxin 250mcg now and observe HR response * If unable to achieve rate control with beta-blockers or calcium channel blockers, can start amiodarone drip. I also discussed the concept of DCCV with her and will make her NPO at wa if we decide to proceed with this tomorrow. * Anticipate heart rate will improve with treatment of her pneumonia * She has a CHADS2 Vasc score of 2 (gender, hypertension) Will start Xarelto 20 mg daily * Echo unremarkable (2) Hypertension: Code(s): I10 - Essential (primary) hypertension Status: Chronic Assessment and Plan: At goal. (3) Community acquired pneumonia: Code(s): J18.9 - Pneumonia, unspecified organism Status: Acute Assessment and Plan: Antibiotics and other management per hospitalist. Subjective Date/time seen: 05/30/25 09:26 Interval history: Patient seen for evaluation of AFib with RVR Patient complains of shortness of breath with mild activity Telemetry AFib RVR heart rate 101 110 Date of service 05/30/2025: She continues to have tachycardia and feels palpitat ions intermittently. No chest pain. Shortness of breath is improving. Review of Systems Review of Systems: All systems reviewed & are unremarkable except as noted in HPI and below Exam Const: General: comfortable, no acute distress, alert and awake Orientation/consciousness: patient oriented x3 HENMT: Head: normal to inspection Eyes: General: appearance normal, both eyes and all related structures Pupils: Equal, round and reactive pupils present Neck: Neck: normal visual inspection, supple and no JVD Carotids: normal carotid upstroke Resp: Effort & Inspection: normal respiratory effort Auscultation: crackles Cardio: Rate: tachycardic Rhythm: abnormal rhythm irregularly irregular Heart sounds: S1 normal heart sound present, S2 normal heart sound present and no murmurs GI: Auscultation: normal bowel sounds Skin: General skin exam: normal color Neuro: General: patient oriented x3 Cranial nerves: Yes Equal, round and reactive pupils present Extrem: General: normal to inspection Psych: Appearance: grossly normal Mental Status: mental status grossly normal Objective Data Vital Signs Vital Signs: Vital Signs - 24 hr 05/29/25 10:00 05/29/25 11:45 05/29/25 11:49 Temperature 36.4 C Pulse Rate 109 H 102 H 118 H Respiratory Rate 20 22 H Blood Pressure 110/76 Pulse Oximetry 94 Oxygen Delivery Oxygen Flow Rate 05/29/25 11:52 05/29/25 12:00 05/29/25 12:00 Temperature Pulse Rate 125 H 128 H Respiratory Rate 20 Blood Pressure Pulse Oximetry 94 Oxygen Delivery High Flow Nasal Cannula Oxygen Flow Rate 7 05/29/25 14:00 05/29/25 15:39 05/29/25 15:40 Temperature Pulse Rate 121 H 104 H Respiratory Rate 20 Blood Pressure Pulse Oximetry 95 Oxygen Delivery High Flow Nasal Cannula Oxygen Flow Rate 7 05/29/25 15:47 05/29/25 16:00 05/29/25 16:00 Temperature 36.4 C Pulse Rate 104 H 126 H 108 H Respiratory Rate 18 20 Blood Pressure 116/75 Pulse Oximetry 96 Oxygen Delivery Oxygen Flow Rate 05/29/25 16:00 05/29/25 18:00 05/29/25 19:55 Temperature Pulse Rate 129 H Respiratory Rate Blood Pressure Pulse Oximetry 96 89 L Oxygen Delivery High Flow Nasal Cannula High Flow Nasal Cannula Oxygen Flow Rate 5 7 05/29/25 20:00 05/29/25 20:00 05/29/25 20:25 Temperature 36.4 C Pulse Rate 116 H 116 H 104 H Respiratory Rate 16 20 Blood Pressure 118/63 Pulse Oximetry 96 Oxygen Delivery Oxygen Flow Rate 05/29/25 20:25 05/29/25 21:54 05/29/25 23:59 Temperature Pulse Rate 116 H Respiratory Rate Blood Pressure Pulse Oximetry 91 94 Oxygen Delivery High Flow Nasal Cannula High Flow Nasal Cannula Oxygen Flow Rate 7 7 05/30/25 00:00 05/30/25 00:00 05/30/25 02:00 Temperature 36.6 C Pulse Rate 114 H 122 H 99 Respiratory Rate 16 Blood Pressure 104/63 Pulse Oximetry 95 Oxygen Delivery Oxygen Flow Rate 05/30/25 04:00 05/30/25 04:00 05/30/25 04:00 Temperature 36.8 C Pulse Rate 105 H 93 Respiratory Rate 16 Blood Pressure 95/75 L Pulse Oximetry 92 95 Oxygen Delivery High Flow Nasal Cannula Oxygen Flow Rate 7 05/30/25 06:00 05/30/25 07:32 05/30/25 07:35 Temperature Pulse Rate 101 H 107 H Respiratory Rate 19 Blood Pressure Pulse Oximetry 91 Oxygen Delivery High Flow Nasal Cannula Oxygen Flow Rate 7 05/30/25 07:42 05/30/25 08:00 Temperature 36.4 C L Pulse Rate 109 H 112 H Respiratory Rate 19 20 Blood Pressure 109/70 Pulse Oximetry 92 Oxygen Delivery Oxygen Flow Rate Intake/Output Intake/Output: Intake & Output 05/27/25 05/28/25 05/29/25 05/30/25 23:59 23:59 23:59 23:59 Intake Total 1510 1946.6 3030 600 Output Total 1850 2760 1550 Balance -340 -813.4 1480 600 Meds/Results Medications: Active Medications Generic Name Dose Route Start Last Admin Trade Name Freq PRN Reason Stop Dose Admin Acetaminophen 650 mg 05/26/25 18:40 05/27/25 09:59 Acetaminophen 325 Mg Tablet PO 650 mg Q4H PRN Administration Mild Pain (1-3) or Fever Hydrocodone Bitart/Acetaminophen 1 tab 05/27/25 20:59 05/30/25 03:55 Hydrocodone/Acetaminophen (*Crx) 5-325 Mg Tablet PO 1 tab Q6H PRN Administration Pain Rated 4-10 Amitriptyline HCl 150 mg 05/27/25 21:00 05/29/25 21:34 Amitriptyline Hcl 25 Mg Tablet PO 150 mg HS IRENE Administration Benzonatate 200 mg 05/28/25 14:03 Benzonatate 100 Mg Capsule PO TID PRN Cough Budesonide 0.5 mg 05/28/25 20:00 05/30/25 07:34 Budesonide Respule Neb 0.5 Mg/2 Ml Amp INHALATION 0.5 mg Q12HRT IRENE Administration Bupropion HCl 150 mg 05/26/25 21:15 05/29/25 21:33 Bupropion Hcl Xl (24 Hr) 150 Mg Tabcr PO 150 mg HS IRENE Administration Buspirone HCl 10 mg 05/26/25 21:20 05/30/25 08:48 Buspirone Hcl 10 Mg Tablet PO 10 mg BID IRENE Administration Calcium Citrate 2 tablet 05/27/25 09:00 05/30/25 08:48 Calcium Citrate 315 Mg/Vitamin D 6.25 Mcg (250 Units) Tab PO 2 tablet BID IRENE Administration Cyclobenzaprine HCl 10 mg 05/28/25 14:03 05/30/25 03:56 Cyclobenzaprine Hcl 10 Mg Tablet PO 10 mg Q8H PRN Administration Muscle Spasm Diltiazem HCl 240 mg 05/30/25 09:00 05/30/25 08:48 Diltiazem Hcl Cd 120 Mg Cap.24hr PO 240 mg QAM IRENE Administration Diphenhydramine HCl 25 mg 05/29/25 13:09 Diphenhydramine Hcl Cap 25 Mg Capsule PO Q6H PRN Itching Furosemide 20 mg 05/29/25 09:00 05/30/25 08:48 Furosemide 20 Mg Tablet PO 20 mg DAILY IRENE Administration Gabapentin 800 mg 05/26/25 21:15 05/30/25 08:48 Gabapentin 400 Mg Capsule PO 800 mg Q12HR IRENE Administration Guaifenesin 1,200 mg 05/26/25 21:40 05/30/25 08:48 Guaifenesin 12 Hr 600 Mg Tabcr PO 1,200 mg Q12HR IRENE Administration Hydrocortisone Sodium Succinate 50 mg 05/28/25 12:05 05/30/25 06:19 Hydrocortisone Sodium Succinate 100 Mg/2 Ml Vial IV PUSH 50 mg Q6HR IRENE Administration Meropenem 1 gm/ Sodium 100 mls @ 200 mls/hr 05/30/25 09:00 Chloride IVPB Q8HR IRENE Levofloxacin/Dextrose 750 mg in 150 mls @ 100 mls/hr 05/30/25 12:00 Levaquin 750 Mg/D5w 150 Ml IVPB Q24H IRENE Ipratropium [place] 0.5 mg 05/28/25 12:00 05/30/25 07:34 Ipratropium Br 0.02% Inh Soln 0.5 Mg/2.5 Ml Vial INHALATION 0.5 mg [id number] IRENE Administration Levothyroxine Sodium 75 mcg 05/27/25 06:30 05/30/25 06:19 Levothyroxine Sodium 75 Mcg Tablet PO 75 mcg DAILY@0630 IRENE Administration Lidocaine 1 patch 05/28/25 14:05 05/30/25 08:51 Lidocaine 5% Patch TRANSDERM 1 patch DAILY IRENE Administration Multivitamins/Minerals 1 tab 05/27/25 09:00 05/30/25 08:48 Multivitamins /C Lutein (Centrum Silver) Tablet *Bkc PO 1 tab DAILY IRENE Administration Ondansetron HCl 4 mg 05/26/25 21:08 Ondansetron Inj 4 Mg/2 Ml Vial IV PUSH Q6H PRN Nausea And Vomiting Pantoprazole Sodium 40 mg 05/27/25 09:00 05/30/25 08:48 Pantoprazole 40 Mg Tablet PO 40 mg QAM IRENE Administration Perflutren Lipid Microsphere 0 ml 05/27/25 09:56 Perflutren Lipid Microspheres 1.5 Ml Vial Diluted To 10 Ml Total Volume IV PUSH 05/30/25 09:56 ONCE PRN adequate visualization Protocol Quetiapine Fumarate 100 mg 05/26/25 21:40 05/29/25 21:33 Quetiapine Fumarate 100 Mg Tablet PO 100 mg HS IRENE Administration Quetiapine Fumarate 50 mg 05/26/25 21:40 05/29/25 21:33 Quetiapine Fumarate 25 Mg Tablet PO 50 mg HS IRENE Administration Rivaroxaban 15 mg 05/28/25 17:00 05/29/25 17:24 Rivaroxaban 15 Mg Tablet PO 15 mg DAILY@1700 IRENE Administration Sodium Chloride 1 spray 05/29/25 13:08 05/29/25 19:46 Saline 0.65% Slim Soln 44 Ml Btl NASAL 1 spray Q6HR PRN Administration Congestion Vitamin D 125 mcg 05/27/25 09:00 05/30/25 08:48 Cholecalciferol (Vitamin D3) 125 Mcg (5,000 Units) Tablet PO 125 mcg DAILY IRENE Administration Radiology Results: ITS Impressions Chest CTA 05/26/25 18:29 IMPRESSION: 1. Extensive bilateral airspace disease, compatible with pneumonia, right greater than left. 2: Enlarged mediastinal and right hilar lymph nodes, likely reactive. Abdomen Ultrasound 05/27/25 09:25 IMPRESSION: 1. Hepatomegaly, with steatosis and/or diffuse hepatocellular disease. 2. Cirrhosis not excluded. Chest X-Ray 05/30/25 08:25 Impression: Interval progression Labs Labs: Laboratory Results - last 24 hr 05/30/25 03:37 WBC 7.1 RBC 3.57 L Hgb 11.5 L Hct 38.8 MCV 108.7 H D MCH 32.2 MCHC 29.6 L RDW 14.3 Plt Count 227 MPV 10.0 Sodium 136 L Potassium 4.2 Chloride 106 Carbon Dioxide 25 Anion Gap 5 BUN 17 Creatinine 0.68 L Estim Creat Clear Calc 96 Estimated GFR > 60 Glucose 109 Calcium 8.9 Magnesium 2.1 Total Bilirubin 0.3 AST 25 ALT 61 H Alkaline Phosphatase 136 H Total Protein 5.5 L Albumin 2.8 L Quality VTE Prophylaxis VTE prophylaxis: pharmacologic ordered
[2025-05-30] MEDS: KETOROLAC 30 MG/ML VIAL (*BKC) IV PUSH ×2 (09:29→21:41)
[2025-05-30] MEDS: MEROPENEM 1 GM in SODIUM CHLORIDE 0.9% IV 100 ML 200 ML IVPB (09:30)
--- NOTE | 2025-05-30 10:26 | P.PNIM_ITS ---
Progress Note: A&P Assessment and Plan (1) Acute respiratory failure with hypoxia: Code(s): J96.01 - Acute respiratory failure with hypoxia Status: Acute Assessment and Plan: Patient on admission requiring 4 L supplemental oxygen to maintain 92% patient does not wear oxygen at home likely secondary to her underlying pneumonia as well AFib with RVR. * Will continue to wean oxygen as tolerated * CTA chest with no PE * Nebulizers scheduled * High flow titrated down to 4 L (2) Community acquired pneumonia: Code(s): J18.9 - Pneumonia, unspecified organism Status: Acute Assessment and Plan: CT showing bilateral pneumonia and elevated wbc's with acute respiratory failure with hypoxia. Patient with no HX of COPD, ILD or recurrent PNA. Had Worsening respiratory status overnight currently on High flow 30/65 FIO2. 05/30: CXR with interval progression of pneumonia but clinically improving. MRSA negative viral panel pending * IV Rocephin and azithromycin IV daily * Supplemental oxygen titrated down to 4 L * Ipratropium 0.5 * Blood cultures NGTD * Obtain sputum culture NGTD * Incentive spirometer * Guaifenesin 1200 mg BID ordered * Pulmicort * Legionella and strep urine pending * consult pulmonology appreciate any further recommendations * Hydrocortisone IVP 50mg Q6hr for severe PNA * added flutter valve and EZPAP (3) Atrial fibrillation with rapid ventricular response: Code(s): I48.91 - Unspecified atrial fibrillation Status: Acute Assessment and Plan: Patient with new onset AFib RVR rates in the 140s no previous history. Patient reports she has even had a Holter monitor in the past that showed no atrial fibrillation likely secondary to patient's infection and hypoxia * Patient received 1 time dose IVP metoprolol * Remain low 120s gave a single dose 25 mg Cardizem IVP with improvement but had not converted * Cardiology was consulted * Echocardiogram: LVEF 65-70 % AFIB * Patient transition from Cardizem drip to oral Cardizem metoprolol has been discontinued after reports of reaction to metoprolol from patient rates in the low 100s * Xarelto 15mg due to interaction with Cardizem per Cardiology * Patient increased to Cardizem 240mg daily from 120mg daily * Cardiology giving 1x dose digoxin rate still uncontrolled may switch to amio gtt with potentially plan for cardioversion in the a.m. 05/31/2025 (4) Transaminitis: Code(s): R74.01 - Elevation of levels of liver transaminase levels Status: Acute Assessment and Plan: Spoke with patient regarding her elevated liver enzymes which time she did hurt she has been taking a of Tylenol due to her to the pain could be underlying sebastian but also showed some fatty liver disease and cannot rule cirrhosis on the ultrasound patient reports she does not drink alcohol * AST is 185 and ALT is 243. In comparison in November the AST was 31 ALT was 47. Improving with fluids * US hepatomegaly with steatosis or diffuse hepatocellular disease unable to exclude cirrhosis * Hepatitis panel negative * Lipid panel pending * Trend with labs * Recommended discontinuation Tylenol or reduce amount of daily intake (5) Anxiety: Code(s): F41.9 - Anxiety disorder, unspecified Status: Chronic Assessment and Plan: * Continue home medications of Wellbutrin, BuSpar, Seroquel (6) Hypertension: Code(s): I10 - Essential (primary) hypertension Status: Chronic Assessment and Plan: Soft BP 's * current on cardizem with soft BP's carvedilol D/C (7) GERD (gastroesophageal reflux disease): Code(s): K21.9 - Gastro-esophageal reflux disease without esophagitis Status: Chronic Assessment and Plan: * Patient uses omeprazole at home switch to pantoprazole which is formulated (8) Hypothyroidism: Code(s): E03.9 - Hypothyroidism, unspecified Status: Chronic Assessment and Plan: * Continue levothyroxine * Check TSH WNL (9) Shoulder pain, right: Code(s): M25.511 - Pain in right shoulder Status: Acute Assessment and Plan: Patient with 10/10 right shoulder pain has HX of cervical surgery in Aug. * CT cervical/shoulder pending * Lidocaine patch * pain management with oral and IV narcotics * Toradol * Valium for muscle spasms Plan Code status: Full code per patient DVT prophylaxis: Lovenox Stress ulcer prophylaxis: Protonix 40 daily PT/OT notes: Ambulatory Disposition: Patient admitted to the medical unit initially being treated for pneumonia and acute respiratory failure with hypoxia patient remains in AFib but rate still with uncontrolled rate. Will continue to wean oxygen. Plan to return home at discharge when medically stable. Time Spent With Patient Time with patient: 15 - 25 minutes Subjective Date/time seen: 05/30/25 10:26 Interval history: Patient is a 65-year-old female admitted for evaluation treatment of acute respiratory failure hypoxia secondary to bilateral pneumonia in new onset AFib RVR. 05/30/2025: patient still reporting 10/10 pain to right shoulder however did report her shortness of breath has improved still with nonproductive cough, pulmonology was able to titrate her oxygen down to 4 L. Patient physically improving slowly but continues with high HR likely will need cardioversion. Review of Systems Review of Systems: All systems reviewed & are unremarkable except as noted in HPI and below Exam Const: General: comfortable and no acute distress Other: Obese female HENMT: Face/Nose/Sinus: Normal nares present Mouth: Yes moist mucous membranes Eyes: General: appearance normal, both eyes and all related structures Neck: Neck: supple and no JVD Lymphatic: lymphadenopathy not noted Chest: Other: Nontender to palpation Resp: Effort & Inspection: abnormal respiratory effort (Increased effort), able to speak in complete sentences, Actively coughing and tachypneic Auscultation: diminished lung sounds Cardio: Rate: tachycardic Rhythm: regular rhythm Heart sounds: no gallops, no murmurs and no rubs Other: Irregular irregular GI: Inspection: non-distended Auscultation: normal bowel sounds Skin: General skin exam: normal color, no rashes or lesions noted and No lesion Lesions: no lesions noted Wounds: no wounds Neuro: Speech: normal speech Motor exam (neuro): 5/5 motor strength present throughout and Normal motor muscle tone present throughout Other: No focal deficits Extrem: General: normal to inspection and no edema Psych: Mental Status: mental status grossly normal Affect: normal affect Objective Data Vital Signs Vital Signs: Vital Signs - 24 hr 05/29/25 11:45 05/29/25 11:49 05/29/25 11:52 Temperature 97.6 F Pulse Rate 102 H 118 H 125 H Respiratory Rate 20 22 H 20 Blood Pressure 110/76 Pulse Oximetry 94 Oxygen Delivery Oxygen Flow Rate 05/29/25 12:00 05/29/25 12:00 05/29/25 14:00 Temperature Pulse Rate 128 H 121 H Respiratory Rate Blood Pressure Pulse Oximetry 94 Oxygen Delivery High Flow Nasal Cannula Oxygen Flow Rate 7 05/29/25 15:39 05/29/25 15:40 05/29/25 15:47 Temperature Pulse Rate 104 H 104 H Respiratory Rate 20 18 Blood Pressure Pulse Oximetry 95 Oxygen Delivery High Flow Nasal Cannula Oxygen Flow Rate 7 05/29/25 16:00 05/29/25 16:00 05/29/25 16:00 Temperature 97.6 F Pulse Rate 126 H 108 H Respiratory Rate 20 Blood Pressure 116/75 Pulse Oximetry 96 96 Oxygen Delivery High Flow Nasal Cannula Oxygen Flow Rate 5 05/29/25 18:00 05/29/25 19:55 05/29/25 20:00 Temperature Pulse Rate 129 H 116 H Respiratory Rate Blood Pressure Pulse Oximetry 89 L Oxygen Delivery High Flow Nasal Cannula Oxygen Flow Rate 7 05/29/25 20:00 05/29/25 20:25 05/29/25 20:25 Temperature 97.6 F Pulse Rate 116 H 104 H Respiratory Rate 16 20 Blood Pressure 118/63 Pulse Oximetry 96 91 Oxygen Delivery High Flow Nasal Cannula Oxygen Flow Rate 7 05/29/25 21:54 05/29/25 23:59 05/30/25 00:00 Temperature Pulse Rate 116 H 114 H Respiratory Rate Blood Pressure Pulse Oximetry 94 Oxygen Delivery High Flow Nasal Cannula Oxygen Flow Rate 7 05/30/25 00:00 05/30/25 02:00 05/30/25 04:00 Temperature 97.8 F Pulse Rate 122 H 99 Respiratory Rate 16 Blood Pressure 104/63 Pulse Oximetry 95 92 Oxygen Delivery High Flow Nasal Cannula Oxygen Flow Rate 7 05/30/25 04:00 05/30/25 04:00 05/30/25 06:00 Temperature 98.2 F Pulse Rate 105 H 93 101 H Respiratory Rate 16 Blood Pressure 95/75 L Pulse Oximetry 95 Oxygen Delivery Oxygen Flow Rate 05/30/25 07:32 05/30/25 07:35 05/30/25 07:42 Temperature Pulse Rate 107 H 109 H Respiratory Rate 19 19 Blood Pressure Pulse Oximetry 91 Oxygen Delivery High Flow Nasal Cannula Oxygen Flow Rate 7 05/30/25 08:00 Temperature 97.5 F L Pulse Rate 112 H Respiratory Rate 20 Blood Pressure 109/70 Pulse Oximetry 92 Oxygen Delivery Oxygen Flow Rate Intake/Output Intake/Output: Intake & Output 05/27/25 05/28/25 05/29/25 05/30/25 23:59 23:59 23:59 23:59 Intake Total 1510 1946.6 3030 600 Output Total 1850 2760 1550 Balance -340 -813.4 1480 600 Meds/Results Medications: Active Medications Generic Name Dose Route Start Last Admin Trade Name Freq PRN Reason Stop Dose Admin Acetaminophen 650 mg 05/26/25 18:40 05/27/25 09:59 Acetaminophen 325 Mg Tablet PO 650 mg Q4H PRN Administration Mild Pain (1-3) or Fever Hydrocodone Bitart/Acetaminophen 1 tab 05/27/25 20:59 05/30/25 03:55 Hydrocodone/Acetaminophen (*Crx) 5-325 Mg Tablet PO 1 tab Q6H PRN Administration Pain Rated 4-10 Amitriptyline HCl 150 mg 05/27/25 21:00 05/29/25 21:34 Amitriptyline Hcl 25 Mg Tablet PO 150 mg HS IRENE Administration Benzonatate 200 mg 05/28/25 14:03 Benzonatate 100 Mg Capsule PO TID PRN Cough Budesonide 0.5 mg 05/28/25 20:00 05/30/25 07:34 Budesonide Respule Neb 0.5 Mg/2 Ml Amp INHALATION 0.5 mg Q12HRT IRENE Administration Bupropion HCl 150 mg 05/26/25 21:15 05/29/25 21:33 Bupropion Hcl Xl (24 Hr) 150 Mg Tabcr PO 150 mg HS IRENE Administration Buspirone HCl 10 mg 05/26/25 21:20 05/30/25 08:48 Buspirone Hcl 10 Mg Tablet PO 10 mg BID IRENE Administration Calcium Citrate 2 tablet 05/27/25 09:00 05/30/25 08:48 Calcium Citrate 315 Mg/Vitamin D 6.25 Mcg (250 Units) Tab PO 2 tablet BID IRENE Administration Diazepam 5 mg 05/30/25 09:56 Diazepam Inj (*Crx) 10 Mg/2 Ml Syringe IV PUSH Q8HR PRN Muscle Spasm Diltiazem HCl 240 mg 05/30/25 09:00 05/30/25 08:48 Diltiazem Hcl Cd 120 Mg Cap.24hr PO 240 mg QAM IRENE Administration Diphenhydramine HCl 25 mg 05/29/25 13:09 Diphenhydramine Hcl Cap 25 Mg Capsule PO Q6H PRN Itching Furosemide 20 mg 05/29/25 09:00 05/30/25 08:48 Furosemide 20 Mg Tablet PO 20 mg DAILY IRENE Administration Gabapentin 800 mg 05/26/25 21:15 05/30/25 08:48 Gabapentin 400 Mg Capsule PO 800 mg Q12HR IRENE Administration Guaifenesin 1,200 mg 05/26/25 21:40 05/30/25 08:48 Guaifenesin 12 Hr 600 Mg Tabcr PO 1,200 mg Q12HR IRENE Administration Hydrocortisone Sodium Succinate 50 mg 05/28/25 12:05 05/30/25 06:19 Hydrocortisone Sodium Succinate 100 Mg/2 Ml Vial IV PUSH 50 mg Q6HR IRENE Administration Azithromycin 500 mg/ Sodium 250 mls @ 250 mls/hr 05/30/25 10:00 Chloride IVPB Q24H IRENE Ceftriaxone Sodium 1 gm/ 50 mls @ 100 mls/hr 05/31/25 10:00 Sodium Chloride IVPB Q24H IRENE Ipratropium [place] 0.5 mg 05/28/25 12:00 05/30/25 07:34 Ipratropium Br 0.02% Inh Soln 0.5 Mg/2.5 Ml Vial INHALATION 0.5 mg [id number] IRENE Administration Ketorolac Tromethamine 30 mg 05/30/25 10:25 Ketorolac 30 Mg/Ml Vial (*Bkc) IV PUSH Q6H PRN Pain Rated 4-6 Levothyroxine Sodium 75 mcg 05/27/25 06:30 05/30/25 06:19 Levothyroxine Sodium 75 Mcg Tablet PO 75 mcg DAILY@0630 IRENE Administration Lidocaine 1 patch 05/28/25 14:05 05/30/25 08:51 Lidocaine 5% Patch TRANSDERM 1 patch DAILY IRENE Administration Multivitamins/Minerals 1 tab 05/27/25 09:00 05/30/25 08:48 Multivitamins /C Lutein (Centrum Silver) Tablet *Bkc PO 1 tab DAILY IRENE Administration Ondansetron HCl 4 mg 05/26/25 21:08 Ondansetron Inj 4 Mg/2 Ml Vial IV PUSH Q6H PRN Nausea And Vomiting Pantoprazole Sodium 40 mg 05/27/25 09:00 05/30/25 08:48 Pantoprazole 40 Mg Tablet PO 40 mg QAM IRENE Administration Quetiapine Fumarate 100 mg 05/26/25 21:40 05/29/25 21:33 Quetiapine Fumarate 100 Mg Tablet PO 100 mg HS IRENE Administration Quetiapine Fumarate 50 mg 05/26/25 21:40 05/29/25 21:33 Quetiapine Fumarate 25 Mg Tablet PO 50 mg HS IRENE Administration Rivaroxaban 15 mg 05/28/25 17:00 05/29/25 17:24 Rivaroxaban 15 Mg Tablet PO 15 mg DAILY@1700 IRENE Administration Sodium Chloride 1 spray 05/29/25 13:08 05/29/25 19:46 Saline 0.65% Slim Soln 44 Ml Btl NASAL 1 spray Q6HR PRN Administration Congestion Vitamin D 125 mcg 05/27/25 09:00 05/30/25 08:48 Cholecalciferol (Vitamin D3) 125 Mcg (5,000 Units) Tablet PO 125 mcg DAILY IRENE Administration Radiology Results: ITS Impressions Chest CTA 05/26/25 18:29 IMPRESSION: 1. Extensive bilateral airspace disease, compatible with pneumonia, right greater than left. 2: Enlarged mediastinal and right hilar lymph nodes, likely reactive. Abdomen Ultrasound 05/27/25 09:25 IMPRESSION: 1. Hepatomegaly, with steatosis and/or diffuse hepatocellular disease. 2. Cirrhosis not excluded. Chest X-Ray 05/30/25 08:25 Impression: Interval progression Labs Labs: Laboratory Results - last 24 hr 05/30/25 03:37 WBC 7.1 RBC 3.57 L Hgb 11.5 L Hct 38.8 MCV 108.7 H D MCH 32.2 MCHC 29.6 L RDW 14.3 Plt Count 227 MPV 10.0 Sodium 136 L Potassium 4.2 Chloride 106 Carbon Dioxide 25 Anion Gap 5 BUN 17 Creatinine 0.68 L Estim Creat Clear Calc 96 Estimated GFR > 60 Glucose 109 Calcium 8.9 Magnesium 2.1 Total Bilirubin 0.3 AST 25 ALT 61 H Alkaline Phosphatase 136 H Total Protein 5.5 L Albumin 2.8 L Quality VTE Prophylaxis VTE prophylaxis: pharmacologic ordered -Patient's previous records reviewed on admission -ER notes reviewed in detail on admission -discussed all findings and current treatment plan with patient/Family/POA -Consultations reviewed for recommendations -Patient's disposition for safe discharge discussed with disability case manager -radiology imaging, EKG and test results I have personally reviewed and interpreted unless otherwise specified Dictation performed by [employer] direct speech recognition software, therefore women's basketball coach variants and typographical errors may occur. Hospitalist MIPS Advance Care Plan I have confirmed that the patient's Advanced Care Plan is present, code status is documented, or surrogate decision maker is listed in patient medical record.: Yes Medication Reconciliation I have utilized all available resources to obtain, update and review the patients current medications (includes all prescriptions, OTC, herbals, cannabis, and nutritional supplements).: Yes The patient is not eligible for med reconciliation; the patient is in a emergent medical situation where delaying treatment would jeopardize the patients health.: No
[2025-05-30] MEDS: diazePAM INJ (*CRX) 10 MG/2 ML SYRINGE 5 MG IV PUSH (10:30)
[2025-05-30] MEDS: DIGOXIN INJ 250 MCG/ML 2 ML AMP (*BKC) IV PUSH (10:30)
[2025-05-30] MEDS: AZITHROMYCIN IV 500 MG in SODIUM CHLORIDE 0.9% IV 250 ML IVPB (10:31)
[2025-05-30 10:51] LABS: CRP 7.5 mg/dL (<1.0)
--- NOTE | 2025-05-30 11:09 | PM.PNPUL ---
Progress Note: A&P Assessment and Plan (1) Community acquired pneumonia: Code(s): J18.9 - Pneumonia, unspecified organism Status: Acute Assessment and Plan: Patient presents with 36 hours of chills, rigors, shortness of breath, rattling in the chest, shortness of breath with a leukocytosis 14.3, bandemia 5%, CT angiogram of the chest with no PE but extensive patchy consolidative ground-glass infiltrates throughout the entire right lung, left upper lobe and left lower lobe and now with worsening oxygenation requiring Airvo 30 L and 65% FiO2. Her CRP is 29.5. Initial COVID, RSV, influenza RT PCR and assay negative. MRSA RT PCR negative today. patient has a severe community-acquired pneumonia. She is afebrile, she feels better than she did when she presented, no longer has hemoptysis, leukocytosis has resolved. 05/28/25: Plan: At this time I will continue ceftriaxone and change the azithromycin to IV. She has severe community-acquired pneumonia as she is requiring high-flow nasal cannula and her CRP is 29.5. Her pneumonia severity index score is 50. I will initiate hydrocortisone 50 mg IV q.6 hours. Patient has a tachy arrhythmia and I will discontinue beta agonist. I will continue ipratropium as she says the nebulized treatments were helping her. I will continue budesonide 500 mcg q.12 hours. I will repeat COVID, influenza, RSV RT PCR assay, send respiratory pathogen panel, urine for Legionella antigen, urine for pneumococcal antigen, check serum mycoplasma IgM levels on 05/28/2025. If the patient should decompensate will consider her a ceftriaxone and azithromycin failure and change her to meropenem and Levaquin. 05/29/2025: Overall the patient tells me she is the same as yesterday but a 1000 times better than when she presented. Her shortness of breath at rest and dyspnea on exertion or unchanged. She states her cough is worse but is now dry which is better. When I enter the room she was on Airvo 30 L 65% FiO2 with saturations 94%. I decreased her to nasal cannula oxygen and sequentially decreased her to 7 L nasal cannula her saturations were 92%. She is afebrile. White blood cell count 7.4, creatinine 0.76. CRP has improved from 20/9 0.5 on 05/28/2025 to a value of 19.8 today. Procalcitonin has improved from 1.6 on 05/28/2025 to a value of 1.0 today. Repeat COVID, influenza, RSV RT PCR assay on 05/28/2020 5-. Plan: Overall the patient continues to improve. Her leukocytosis has resolved, she is afebrile, her oxygenation has improved and her CRP and procalcitonin are decreasing on ceftriaxone and azithromycin, both started 05/26/2025. Will continue. Continue Solu-Medrol 50 mg IV q.6 hours (day 2). Blood cultures, respiratory pathogen panel, urine Legionella, urine pneumococcal and serum IgM for mycoplasma all pending. I will check a chest x-ray on 05/30/2025. 05/30/2025: Patient tells me she is breathing better today. She has no rest shortness of breath. She is no longer feeling cold and clammy. Her cough is the same with no phlegm and no hemoptysis. Patient slept better last night. When I enter the room she was on 7 L nasal cannula saturations 97%. I decreased her to 4 L nasal cannula her saturations were 95%. White blood cell count 7.1, creatinine 0.68. Yesterday she is positive 1.4 L, cumulative she is positive 1.9 L. Her weight today is 124.1 kg. Chest x-ray today shows worsening consolidative infiltrates on the right. Patient remains in AFib with heart rates 130-155 when I was in the room. She had her diltiazem increased by Cardiology to 240 a day and digoxin was added today. She complains of right trapezius pain that was similar to her pain prior to her neck operation in August of 2024. After the operation this pain went away but returned to the hospital. She has no shoulder or clavicular pain. Ice helps. I gave her manual massage with minimal improvement. She has Minimal neck tenderness. to breathing does not make this pain worse. She is receiving Toradol. Plan: Patient continues to improve, she is no longer cold and clammy, her breathing is better. Her leukocytosis has resolved, her oxygenation has improved. Her chest x-ray shows more consolidation and I suspect this is atelectasis versus mucus plugging. I will add EzPAP and Cornet flutter valve. Once her heart rate is stabilized recommend out of bed to chair. Continue ceftriaxone and azithromycin both started 05/26/2025. I will decrease her Solu-Medrol to 25 mg IV q.6 hours, day 3 of steroids. Blood cultures negative. respiratory pathogen panel, urine Legionella, urine pneumococcal and serum IgM for mycoplasma all pending.. Discussed with Loni Pettit, will follow with you. (2) Acute respiratory failure with hypoxia: Code(s): J96.01 - Acute respiratory failure with hypoxia Status: Acute Assessment and Plan: Patient initially on no oxygen at home with no respiratory limitations. She has had 2 ABGs the last on 10 L with pH of 7.44/38/55. There is no evidence of hypercarbic respiratory failure. 05/26 16:00 room air, sats 93% 05/26 21:00 4 L NC, sats 92% 05/27 08:00 4 L NC, sats 91% 05/27 20:00 4 L NC, sats 90% 05/28 05:30 10 L NC, sats 86%, ABG 7.44/38.55 05/28 6:15 Airvo 30 L, 65%, sats 93% 05/28 11:00 Airvo 30 L, 65%, sats 95% 05/28 20:00 Airvo 30 L, 65%, sats 95% 05/29 07:45 Airvo 30 L, 65%, sats 94% 05/29 11:20 7 L NC, sats 92% 05/29 20:15 7 L NC, sats 91% 05/2910:30 4 L NC, sasts 95% goal saturation 90-94%, adjust oxygen accordingly. Subjective Date/time seen: 05/30/25 11:09 Interval history: 05/28/25 This is a new pulmonary consult for pneumonia with hypoxemic respiratory failure. 65-year-old with a history of hypertension, gastric bypass with revision in 2012, GERD, gout, hypothyroidism, neuropathy, chronic knee pain. Patient has no history of asthma, COPD, recurrent pneumonias. Patient is a never smoker. She was exposed to secondhand smoke from both of her parents and from [id number]. She worked for [employer] and denies vaping, illicit drug use, sand blasting, welding, asbestos exposure, professional painting, steel mill attendant, coal mining, or construction work. At baseline the patient tells me she can walk 1 and half blocks but has to stop for knee pain rather than any breathing issues. She has no respiratory limitations in her activities of daily living. She is on no home O2. Patient is in the process of extensive dental work and on 05/24/2025 she had 6 teeth pulled under local anesthesia. Prior to this procedure and after this procedure she had no breathing problems. She was in pain but had no cough or phlegm production. She slept that night. On 05/25/2025 the patient woke up and had rattling in her chest, chills, rigors, shortness of breath. Patient states her phlegm was read and could have been blood. She was fatigued. She went to bed and slept all night and most of the morning on 05/26/2025. 05/26/25: She woke up with worse headache of her life and presented to the emergency department. In the emergency department her blood pressure was 122/68, heart rate 105, respirations 22, room air saturations 93%. Her weight was 113.5 she was afebrile. White blood cell count 14.3, bands were 5%, no eosinophils, creatinine 0.67, COVID, influenza, RSV RT PCR assay negative. Chest x-ray with bilateral pneumonia. CT angiogram of the chest with no PE, patchy ground-glass consolidative infiltrates throughout all the right lung, lasts pronounced in the left upper lobe and left lower lobe. Patient was placed on Rocephin and azithromycin. 05/27/2025. Patient had mild improvement. At 8:00 a.m. she was on 4 L nasal cannula saturations 91%. Her white blood cell count was 12.2 she was afebrile. ABG on 4 L was 7.43/39/60. Patient gone into AFib RVR and was placed on metoprolol and Xarelto per Cardiology. At 8:00 p.m. patient was on 4 L nasal cannula saturations 90%. 05/28/2025. Overall patient feels a little worse than yesterday she is more tired, she states that she has 25% back to her normal and improved since admission. She has more coughing today but less phlegm. She has no hemoptysis and yellow phlegm. If 5:30 a.m. she was on 10 L nasal cannula with desats and an ABG of 7.44/38/55 and was placed on Airvo 30 L and 65% with saturations 95%. white blood cell count is 9.2, creatinine is 0.82, CRP is 29.5, BNP is 4520, procalcitonin is 1.6. chest x-ray today unchanged compared to 05/27/2025 with diffuse infiltrates throughout the lower right lung field with decreased lung volumes on the right minimal infiltrates in the left base. 05/29/2025: Overall the patient tells me she is the same as yesterday but a 1000 times better than when she presented. Her shortness of breath at rest and dyspnea on exertion or unchanged. She states her cough is worse but is now dry which is better. When I enter the room she was on Airvo 30 L 65% FiO2 with saturations 94%. I decreased her to nasal cannula oxygen and sequentially decreased her to 7 L nasal cannula her saturations were 92%. She is afebrile. White blood cell count 7.4, creatinine 0.76. CRP has improved from 20/9 0.5 on 05/28/2025 to a value of 19.8 today. Procalcitonin has improved from 1.6 on 05/28/2025 to a value of 1.0 today. 05/30/2025: Patient tells me she is breathing better today. She has no rest shortness of breath. She is no longer feeling cold and clammy. Her cough is the same with no phlegm and no hemoptysis. Patient slept better last night. When I enter the room she was on 7 L nasal cannula saturations 97%. I decreased her to 4 L nasal cannula her saturations were 95%. White blood cell count 7.1, creatinine 0.68. Yesterday she is positive 1.4 L, cumulative she is positive 1.9 L. Her weight today is 124.1 kg. Chest x-ray today shows worsening consolidative infiltrates on the right. Patient remains in AFib with heart rates 130-155 when I was in the room. She had her diltiazem increased by Cardiology to 240 a day and digoxin was added today. She complains of right trapezius pain that was similar to her pain prior to her neck operation in August of 2024. After the operation this pain went away but returned to the hospital. She has no shoulder or clavicular pain. Ice helps. I gave her manual massage with minimal improvement. She has Minimal neck tenderness. to breathing does not make this pain worse. She is receiving Toradol. DATA: 05/27/25: Echo Summary Summary 1. Complete two-dimensional, color flow and Doppler transthoracic echocardiogram is performed. 2. Small amount of mitral and tricuspid regurgitation. 3. Otherwise structurally normal appearing heart. 4. Atrial fibrillation. Left Ventricle Left ventricular chamber dimension is normal. Left ventricular systolic function is normal, estimated at 65-70. Right Ventricle Right ventricular chamber dimension is normal. Left Atria Left atrial chamber dimension is normal. Right Atria Right atrial chamber dimension is normal. Tricuspid peak gradient 26. 05/27/2025: ULTRASOUND ABDOMEN LIMITED (RIGHT UPPER QUADRANT) Clinical History: Transaminitis Comparison: CT chest 1 day prior Technique: Right upper quadrant sonography Findings: Liver: Normal size. Normal echotexture. No intrahepatic biliary ductal dilatation. Normal hepatopedal flow main portal vein. Micronodular contour. Common Duct: 7 mm. Gallbladder: Removed. Pancreas: Obscured by bowel gas. Right kidney: Unremarkable. Retrohepatic IVC: Unremarkable. IMPRESSION: 1. Hepatomegaly, with steatosis and/or diffuse hepatocellular disease. 2. Cirrhosis not excluded. 05/26/2025: EXAMINATION: CTA chest PE protocol DATE: 05/26/2025 18:29 CDT INDICATION: Pneumonia. Hemoptysis. TECHNIQUE: Computed tomographic angiography (CTA) of the chest was performed with 100 mL Omnipaque-350 intravenous contrast. The dose-length product was 885.28 mGy-cm. Maximum intensity projection 3D-reconstructions of the aorta and other arteries were constructed by the technologist on a separate workstation. COMPARISON: Chest x-ray dated 05/26/2025. FINDINGS: Study is technically adequate without evidence for pulmonary embolism. There is right hilar and subcarinal lymphadenopathy, likely reactive. There are bilateral breast implants. No significant pleural or pericardial effusion. There is extensive bilateral airspace consolidation, more so on the right, consistent with pneumonia. Airspace disease is most confluent in the right lower lobe. No endobronchial lesions. No pneumothorax. No significant pleural or pericardial effusion. There is surgical changes in the left upper abdomen. IMPRESSION: 1. Extensive bilateral airspace disease, compatible with pneumonia, right greater than left. 2: Enlarged mediastinal and right hilar lymph nodes, likely reactive. 12/15/2024: CHEST RADIOGRAPH CLINICAL HISTORY: fall . COMPARISON: 10/23/2021 TECHNIQUE: Single portable view of the chest. FINDINGS Significant elevation of the right hemidiaphragm with adjacent compressive atelectasis. The remainder of the lungs are clear. Dorsal column stimulator device is noted. The remainder of the cardiomediastinal silhouette is otherwise unremarkable. IMPRESSION: Elevation of the right hemidiaphragm with adjacent compressive atelectasis. The remainder of the lungs are clear. Review of Systems Constitutional: Constitutional: Reports no additional constitutional complaints Eyes: Eyes: Reports no additional eye complaints ENT: Reports system reviewed and no additional complaints, except as documented Cardiovascular: Cardiovascular: Reports no additional cardiovascular complaints Respiratory: Respiratory: Reports no additional respiratory complaints Gastrointestinal: Gastrointestinal: Reports no additional gastrointestinal complaints Musculoskeletal: Musculoskeletal: Reports no additional musculoskeletal complaints Neurologic: Reports system reviewed and no additional complaints, except as documented Psychiatric: Psychiatric: Reports no additional psychiatric complaints Endocrine: Endocrine: Reports no additional endocrine complaints Hematologic/Lymphatic: Hematologic/Lymphatic: Reports no additional hematologic/lymphatic complaints Allergic/Immunologic: Allergic/Immunologic: Reports no additional allergic/immunologic complaints Exam Const: General: cooperative, comfortable and no acute distress Orientation/consciousness: oriented to person, oriented to place and oriented to time HENMT: Head: normal to inspection Ears: hearing grossly normal bilaterally Eyes: General: appearance normal, both eyes and all related structures Neck: Neck: normal visual inspection Chest: Chest palpation & inspection: normal inspection of the chest Resp: Effort & Inspection: normal respiratory effort and able to speak in complete sentences Auscultation: crackles, no rales, no rhonchi, no wheezes and lung sounds not diminished Other: Diffuse crackles right lung and left base. Cardio: Jugular venous distension: no JVD GI: Inspection: normal to inspection Skin: General skin exam: normal color Neuro: General: oriented to person, oriented to place and oriented to time Extrem: General: normal to inspection and no edema Psych: Appearance: grossly normal Objective Data Vital Signs Vital Signs: Vital Signs - 24 hr 05/29/25 11:45 05/29/25 11:49 05/29/25 11:52 Temperature 36.4 C Pulse Rate 102 H 118 H 125 H Respiratory Rate 20 22 H 20 Blood Pressure 110/76 Pulse Oximetry 94 Oxygen Delivery Oxygen Flow Rate 05/29/25 12:00 05/29/25 12:00 05/29/25 14:00 Temperature Pulse Rate 128 H 121 H Respiratory Rate Blood Pressure Pulse Oximetry 94 Oxygen Delivery High Flow Nasal Cannula Oxygen Flow Rate 7 05/29/25 15:39 05/29/25 15:40 05/29/25 15:47 Temperature Pulse Rate 104 H 104 H Respiratory Rate 20 18 Blood Pressure Pulse Oximetry 95 Oxygen Delivery High Flow Nasal Cannula Oxygen Flow Rate 7 05/29/25 16:00 05/29/25 16:00 05/29/25 16:00 Temperature 36.4 C Pulse Rate 126 H 108 H Respiratory Rate 20 Blood Pressure 116/75 Pulse Oximetry 96 96 Oxygen Delivery High Flow Nasal Cannula Oxygen Flow Rate 5 05/29/25 18:00 05/29/25 19:55 05/29/25 20:00 Temperature Pulse Rate 129 H 116 H Respiratory Rate Blood Pressure Pulse Oximetry 89 L Oxygen Delivery High Flow Nasal Cannula Oxygen Flow Rate 7 05/29/25 20:00 05/29/25 20:25 05/29/25 20:25 Temperature 36.4 C Pulse Rate 116 H 104 H Respiratory Rate 16 20 Blood Pressure 118/63 Pulse Oximetry 96 91 Oxygen Delivery High Flow Nasal Cannula Oxygen Flow Rate 7 05/29/25 21:54 05/29/25 23:59 05/30/25 00:00 Temperature Pulse Rate 116 H 114 H Respiratory Rate Blood Pressure Pulse Oximetry 94 Oxygen Delivery High Flow Nasal Cannula Oxygen Flow Rate 7 05/30/25 00:00 05/30/25 02:00 05/30/25 04:00 Temperature 36.6 C Pulse Rate 122 H 99 Respiratory Rate 16 Blood Pressure 104/63 Pulse Oximetry 95 92 Oxygen Delivery High Flow Nasal Cannula Oxygen Flow Rate 7 05/30/25 04:00 05/30/25 04:00 05/30/25 06:00 Temperature 36.8 C Pulse Rate 105 H 93 101 H Respiratory Rate 16 Blood Pressure 95/75 L Pulse Oximetry 95 Oxygen Delivery Oxygen Flow Rate 05/30/25 07:32 05/30/25 07:35 05/30/25 07:42 Temperature Pulse Rate 107 H 109 H Respiratory Rate 19 19 Blood Pressure Pulse Oximetry 91 Oxygen Delivery High Flow Nasal Cannula Oxygen Flow Rate 7 05/30/25 08:00 05/30/25 10:30 05/30/25 10:39 Temperature 36.4 C L Pulse Rate 112 H 122 H Respiratory Rate 20 Blood Pressure 109/70 Pulse Oximetry 92 96 Oxygen Delivery High Flow Nasal Cannula Oxygen Flow Rate 3 Intake/Output Intake/Output: Intake & Output 05/27/25 05/28/25 05/29/25 05/30/25 23:59 23:59 23:59 23:59 Intake Total 1510 1946.6 3030 600 Output Total 1850 2760 1550 Balance -340 -813.4 1480 600 Meds/Results Medications: Active Medications Generic Name Dose Route Start Last Admin Trade Name Freq PRN Reason Stop Dose Admin Acetaminophen 650 mg 05/26/25 18:40 05/27/25 09:59 Acetaminophen 325 Mg Tablet PO 650 mg Q4H PRN Administration Mild Pain (1-3) or Fever Hydrocodone Bitart/Acetaminophen 1 tab 05/27/25 20:59 05/30/25 03:55 Hydrocodone/Acetaminophen (*Crx) 5-325 Mg Tablet PO 1 tab Q6H PRN Administration Pain Rated 4-10 Amitriptyline HCl 150 mg 05/27/25 21:00 05/29/25 21:34 Amitriptyline Hcl 25 Mg Tablet PO 150 mg HS IRENE Administration Benzonatate 200 mg 05/28/25 14:03 Benzonatate 100 Mg Capsule PO TID PRN Cough Budesonide 0.5 mg 05/28/25 20:00 05/30/25 07:34 Budesonide Respule Neb 0.5 Mg/2 Ml Amp INHALATION 0.5 mg Q12HRT IRENE Administration Bupropion HCl 150 mg 05/26/25 21:15 05/29/25 21:33 Bupropion Hcl Xl (24 Hr) 150 Mg Tabcr PO 150 mg HS IRENE Administration Buspirone HCl 10 mg 05/26/25 21:20 05/30/25 08:48 Buspirone Hcl 10 Mg Tablet PO 10 mg BID IRENE Administration Calcium Citrate 2 tablet 05/27/25 09:00 05/30/25 08:48 Calcium Citrate 315 Mg/Vitamin D 6.25 Mcg (250 Units) Tab PO 2 tablet BID IRENE Administration Diazepam 5 mg 05/30/25 09:56 05/30/25 10:30 Diazepam Inj (*Crx) 10 Mg/2 Ml Syringe IV PUSH 5 mg Q8HR PRN Administration Muscle Spasm Diltiazem HCl 240 mg 05/30/25 09:00 05/30/25 08:48 Diltiazem Hcl Cd 120 Mg Cap.24hr PO 240 mg QAM IRENE Administration Diphenhydramine HCl 25 mg 05/29/25 13:09 Diphenhydramine Hcl Cap 25 Mg Capsule PO Q6H PRN Itching Furosemide 20 mg 05/29/25 09:00 05/30/25 08:48 Furosemide 20 Mg Tablet PO 20 mg DAILY IRENE Administration Gabapentin 800 mg 05/26/25 21:15 05/30/25 08:48 Gabapentin 400 Mg Capsule PO 800 mg Q12HR IRENE Administration Guaifenesin 1,200 mg 05/26/25 21:40 05/30/25 08:48 Guaifenesin 12 Hr 600 Mg Tabcr PO 1,200 mg Q12HR IRENE Administration Hydrocortisone Sodium Succinate 50 mg 05/28/25 12:05 05/30/25 06:19 Hydrocortisone Sodium Succinate 100 Mg/2 Ml Vial IV PUSH 50 mg Q6HR IRENE Administration Azithromycin 500 mg/ Sodium 250 mls @ 250 mls/hr 05/30/25 10:00 05/30/25 10:31 Chloride IVPB 250 mls/hr Q24H IRENE Administration Ceftriaxone Sodium 1 gm/ 50 mls @ 100 mls/hr 05/31/25 10:00 Sodium Chloride IVPB Q24H IRENE Ipratropium [place] 0.5 mg 05/28/25 12:00 05/30/25 07:34 Ipratropium Br 0.02% Inh Soln 0.5 Mg/2.5 Ml Vial INHALATION 0.5 mg [id number] IRENE Administration Ketorolac Tromethamine 30 mg 05/30/25 10:25 Ketorolac 30 Mg/Ml Vial (*Bkc) IV PUSH Q6H PRN Pain Rated 4-6 Levothyroxine Sodium 75 mcg 05/27/25 06:30 05/30/25 06:19 Levothyroxine Sodium 75 Mcg Tablet PO 75 mcg DAILY@0630 IRENE Administration Lidocaine 1 patch 05/28/25 14:05 05/30/25 08:51 Lidocaine 5% Patch TRANSDERM 1 patch DAILY IRENE Administration Multivitamins/Minerals 1 tab 05/27/25 09:00 05/30/25 08:48 Multivitamins /C Lutein (Centrum Silver) Tablet *Bkc PO 1 tab DAILY IRENE Administration Ondansetron HCl 4 mg 05/26/25 21:08 Ondansetron Inj 4 Mg/2 Ml Vial IV PUSH Q6H PRN Nausea And Vomiting Pantoprazole Sodium 40 mg 05/27/25 09:00 05/30/25 08:48 Pantoprazole 40 Mg Tablet PO 40 mg QAM IRENE Administration Quetiapine Fumarate 100 mg 05/26/25 21:40 05/29/25 21:33 Quetiapine Fumarate 100 Mg Tablet PO 100 mg HS IRENE Administration Quetiapine Fumarate 50 mg 05/26/25 21:40 05/29/25 21:33 Quetiapine Fumarate 25 Mg Tablet PO 50 mg HS IRENE Administration Rivaroxaban 15 mg 05/28/25 17:00 05/29/25 17:24 Rivaroxaban 15 Mg Tablet PO 15 mg DAILY@1700 IRENE Administration Sodium Chloride 1 spray 05/29/25 13:08 05/29/25 19:46 Saline 0.65% Slim Soln 44 Ml Btl NASAL 1 spray Q6HR PRN Administration Congestion Vitamin D 125 mcg 05/27/25 09:00 05/30/25 08:48 Cholecalciferol (Vitamin D3) 125 Mcg (5,000 Units) Tablet PO 125 mcg DAILY IRENE Administration Radiology Results: ITS Impressions Chest CTA 05/26/25 18:29 IMPRESSION: 1. Extensive bilateral airspace disease, compatible with pneumonia, right greater than left. 2: Enlarged mediastinal and right hilar lymph nodes, likely reactive. Abdomen Ultrasound 05/27/25 09:25 IMPRESSION: 1. Hepatomegaly, with steatosis and/or diffuse hepatocellular disease. 2. Cirrhosis not excluded. Chest X-Ray 05/30/25 08:25 Impression: Interval progression Shoulder CT 05/30/25 11:01 IMPRESSION: 1. Polyarticular osteoarthritis. 2. Diffuse right lung disease, consistent with pneumonia. 3. Small right pleural effusion. Labs Labs: Laboratory Results - last 24 hr 05/30/25 03:37 WBC 7.1 RBC 3.57 L Hgb 11.5 L Hct 38.8 MCV 108.7 H D MCH 32.2 MCHC 29.6 L RDW 14.3 Plt Count 227 MPV 10.0 Sodium 136 L Potassium 4.2 Chloride 106 Carbon Dioxide 25 Anion Gap 5 BUN 17 Creatinine 0.68 L Estim Creat Clear Calc 96 Estimated GFR > 60 Glucose 109 Calcium 8.9 Magnesium 2.1 Total Bilirubin 0.3 AST 25 ALT 61 H Alkaline Phosphatase 136 H C-Reactive Protein 7.5 H Total Protein 5.5 L Albumin 2.8 L
[2025-05-30] MEDS: HYDROCORTISONE SODIUM SUCCINATE 100 MG/2 ML VIAL 25 MG IV PUSH ×3 (13:01→23:39)
[2025-05-30] MEDS: RIVAROXABAN 20 MG TABLET PO (17:52)
--- NOTE | 2025-05-30 20:39 | PC.NURSE ---
pt heart rate remains afib with rate 120-145 while laying in bed, amio running at 1. Dr. knowles called since we were gonna bring her rate down to .5 on the amio drip. he said keep her at rate of 1 unless she converts then put her at .5.
[2025-05-30] MEDS: AMITRIPTYLINE HCL 25 MG TABLET 150 MG PO (21:36)
[2025-05-30] MEDS: buPROPion HCL XL (24 HR) 150 MG TABCR PO (21:36)
[2025-05-31] VITALS (31 sets, daily range): BP systolic 113–141; BP diastolic 73–92; PULSE 86–133; RESP 18–20; TEMP 36.4–36.9; O2SAT 90–99
[2025-05-31 04:34] LABS: Hematocrit 35.1 % (37.0-47.0); Hemoglobin 11.1 g/dL (12.0-15.0); Mean Corpuscular HGB Conc 31.6 g/dl (32-36); Mean Corpuscular Hemoglobin 32.4 pg (26-34); Mean Corpuscular Volume 102.3 fl (80-100); Platelet Count Result 292 k/mm3 (150-375); Red Blood Count 3.43 M/mm3 (4.2-5.4); White Blood Count 7.5 K/mm3 (4.5-10.0)
[2025-05-31 05:00] LABS: Alanine Aminotransferase 45 U/L (6-35); Albumin Level 3.0 g/dL (3.5-5.1); Alkaline Phosphatase 110 U/L (38-126); Anion Gap 5 mmol/L (4-12); Aspartate Amino Transferase 24 U/L (14-36); Bilirubin,Total 0.3 mg/dL (0.2-1.3); Blood Urea Nitrogen 19 mg/dL (7-17); Calcium 8.8 mg/dL (8.4-10.2); Carbon Dioxide 27 mmol/L (22-30); Chloride 101 mmol/L (98-107); Estimated CRCL calculation 76 ml/min; Estimated Glomerular Filt Rate > 60; Glucose 104 mg/dL (65-110); Magnesium 2.1 mg/dL (1.6-2.3); Potassium 3.8 mmol/L (3.4-5.0); Sodium 133 mmol/L (137-145); Total Protein 5.7 g/dL (6.3-8.2)
[2025-05-31] MEDS: HYDROCORTISONE SODIUM SUCCINATE 100 MG/2 ML VIAL 25 MG IV PUSH ×2 (06:24→17:22)
[2025-05-31] MEDS: IPRATROPIUM BR 0.02% INH SOLN 0.5 MG/2.5 ML VIAL INHALATION ×4 (07:43→20:35)
[2025-05-31] MEDS: BUDESONIDE RESPULE NEB 0.5 MG/2 ML AMP INHALATION ×2 (07:43→20:35)
--- NOTE | 2025-05-31 08:49 | P.PNCA_ITS ---
Progress Note: A&P Assessment and Plan (1) Atrial fibrillation with rapid ventricular response: Code(s): I48.91 - Unspecified atrial fibrillation Status: Acute Assessment and Plan: Atrial fibrillation with rapid ventricular response, rates in the 120s to 140s. This is a new diagnosis in the setting of acute illness with pneumonia. Discussed this diagnosis with her including pathophysiology, management strategy is, and risks/complications. For the time being, we will pursue a rate control and anticoagulation strategy. * She was shifted from metoprolol to dilitiazem reportedly because of a reaction to metoprolol, however patient states she did not have any adverse effects with metoprolol * Continue diltiazem 240mg daily * After discussion yesterday re: risks/benefits of amiodarone, mutual decision was made to initiate amiodarone drip which should be continued today at 1mg/min for 6 hours then decrease to 0.5mg/min * I also discussed the concept of DCCV with her if unable to control her rate * Anticipate heart rate will improve with treatment of her pneumonia * She has a CHADS2 Vasc score of 2 (gender, hypertension) Will start Xarelto 20 mg daily * Echo unremarkable (2) Hypertension: Code(s): I10 - Essential (primary) hypertension Status: Chronic Assessment and Plan: At goal. (3) Community acquired pneumonia: Code(s): J18.9 - Pneumonia, unspecified organism Status: Acute Assessment and Plan: Antibiotics and other management per hospitalist. Subjective Date/time seen: 05/31/25 08:49 Interval history: Patient seen for evaluation of AFib with RVR Patient complains of shortness of breath with mild activity Telemetry AFib RVR heart rate 101 110 Date of service 05/30/2025: She continues to have tachycardia and feels palpitations intermittently. No chest pain. Shortness of breath is improving. Date of service 05/31/2025: Heart rate improving on amiodarone but remains above goal. Shortness of breath improving. Feeling better overall. Review of Systems Review of Systems: All systems reviewed & are unremarkable except as noted in HPI and below Exam Const: General: comfortable, no acute distress, alert and awake Orientation/consciousness: patient oriented x3 HENMT: Head: normal to inspection Eyes: General: appearance normal, both eyes and all related structures Pupils: Equal, round and reactive pupils present Neck: Neck: normal visual inspection, supple and no JVD Carotids: normal carotid upstroke Resp: Effort & Inspection: normal respiratory effort Auscultation: rhonchi and diminished lung sounds Cardio: Rate: tachycardic Rhythm: abnormal rhythm irregularly irregular Heart sounds: S1 normal heart sound present, S2 normal heart sound present and no murmurs GI: Auscultation: normal bowel sounds Skin: General skin exam: normal color Neuro: General: patient oriented x3 Cranial nerves: Yes Equal, round and reactive pupils present Extrem: General: normal to inspection Psych: Appearance: grossly normal Mental Status: mental status grossly normal Objective Data Vital Signs Vital Signs: Vital Signs - 24 hr 05/30/25 10:00 05/30/25 10:30 05/30/25 10:39 Temperature Pulse Rate 132 H 122 H Respiratory Rate Blood Pressure Pulse Oximetry 96 Oxygen Delivery High Flow Nasal Cannula Oxygen Flow Rate 3 Fraction of Inspired Oxygen 05/30/25 11:30 05/30/25 11:41 05/30/25 11:59 Temperature 36.4 C Pulse Rate 126 H 120 H Respiratory Rate 20 19 Blood Pressure 106/75 Pulse Oximetry 96 95 Oxygen Delivery High Flow Nasal Cannula Oxygen Flow Rate 4 Fraction of Inspired Oxygen 05/30/25 12:00 05/30/25 12:00 05/30/25 12:08 Temperature Pulse Rate 130 H 122 H Respiratory Rate 19 Blood Pressure Pulse Oximetry 96 Oxygen Delivery High Flow Nasal Cannula Oxygen Flow Rate 3 Fraction of Inspired Oxygen 05/30/25 14:00 05/30/25 15:00 05/30/25 16:00 Temperature 36.6 C Pulse Rate 120 H 114 H Respiratory Rate 20 Blood Pressure 129/100 H Pulse Oximetry 95 93 Oxygen Delivery High Flow Nasal Cannula Oxygen Flow Rate 2 Fraction of Inspired Oxygen 05/30/25 16:00 05/30/25 16:01 05/30/25 16:18 Temperature Pulse Rate 110 H 121 H 132 H Respiratory Rate Blood Pressure Pulse Oximetry Oxygen Delivery Oxygen Flow Rate Fraction of Inspired Oxygen 05/30/25 17:05 05/30/25 17:11 05/30/25 17:11 Temperature Pulse Rate 135 H 130 H Respiratory Rate 19 19 Blood Pressure Pulse Oximetry 92 Oxygen Delivery High Flow Nasal Cannula Oxygen Flow Rate 2 Fraction of Inspired Oxygen 05/30/25 18:00 05/30/25 20:00 05/30/25 20:00 Temperature 36.9 C Pulse Rate 129 H 133 H 148 H Respiratory Rate 16 Blood Pressure 139/81 Pulse Oximetry 90 Oxygen Delivery Oxygen Flow Rate Fraction of Inspired Oxygen 05/30/25 20:00 05/30/25 20:00 05/30/25 20:30 Temperature Pulse Rate 112 H 123 H Respiratory Rate 20 Blood Pressure Pulse Oximetry 95 Oxygen Delivery High Flow Nasal Cannula Oxygen Flow Rate 2 Fraction of Inspired Oxygen 05/30/25 20:32 05/30/25 20:39 05/30/25 22:00 Temperature Pulse Rate 120 H 125 H 123 H Respiratory Rate 20 20 Blood Pressure 133/84 Pulse Oximetry 97 Oxygen Delivery High Flow Nasal Cannula Oxygen Flow Rate 2 Fraction of Inspired Oxygen 28 05/30/25 22:00 05/31/25 00:00 05/31/25 00:00 Temperature 36.9 C Pulse Rate 138 H 114 H Respiratory Rate 20 Blood Pressure 124/91 H Pulse Oximetry 94 92 Oxygen Delivery High Flow Nasal Cannula Oxygen Flow Rate 3 Fraction of Inspired Oxygen 05/31/25 00:00 05/31/25 00:00 05/31/25 02:00 Temperature Pulse Rate 115 H 113 H 97 Respiratory Rate Blood Pressure 141/92 H Pulse Oximetry Oxygen Delivery Oxygen Flow Rate Fraction of Inspired Oxygen 05/31/25 02:15 05/31/25 03:47 05/31/25 03:47 Temperature Pulse Rate 97 89 89 Respiratory Rate Blood Pressure 113/85 129/86 129/86 Pulse Oximetry Oxygen Delivery Oxygen Flow Rate Fraction of Inspired Oxygen 05/31/25 03:53 05/31/25 04:00 05/31/25 04:00 Temperature 36.7 C Pulse Rate 106 H 86 Respiratory Rate 18 Blood Pressure 114/73 129/86 Pulse Oximetry 92 92 Oxygen Delivery High Flow Nasal Cannula Oxygen Flow Rate 3 Fraction of Inspired Oxygen 05/31/25 04:00 05/31/25 06:00 05/31/25 06:00 Temperature Pulse Rate 95 92 100 Respiratory Rate Blood Pressure 118/82 Pulse Oximetry Oxygen Delivery Oxygen Flow Rate Fraction of Inspired Oxygen 05/31/25 07:18 05/31/25 07:43 05/31/25 07:43 Temperature 36.4 C Pulse Rate 98 106 H 106 H Respiratory Rate 20 20 20 Blood Pressure 118/88 Pulse Oximetry 92 92 Oxygen Delivery Nasal Cannula Oxygen Flow Rate 3 Fraction of Inspired Oxygen 05/31/25 07:54 Temperature Pulse Rate 103 H Respiratory Rate 20 Blood Pressure Pulse Oximetry Oxygen Delivery Oxygen Flow Rate Fraction of Inspired Oxygen Intake/Output Intake/Output: Intake & Output 05/28/25 05/29/25 05/30/25 05/31/25 23:59 23:59 23:59 23:59 Intake Total 1946.6 3030 1553.3 766.7 Output Total 2760 1550 900 600 Balance -813.4 1480 653.3 166.7 Meds/Results Medications: Active Medications Generic Name Dose Route Start Last Admin Trade Name Freq PRN Reason Stop Dose Admin Acetaminophen 650 mg 05/26/25 18:40 05/27/25 09:59 Acetaminophen 325 Mg Tablet PO 650 mg Q4H PRN Administration Mild Pain (1-3) or Fever Hydrocodone Bitart/Acetaminophen 1 tab 05/27/25 20:59 05/30/25 03:55 Hydrocodone/Acetaminophen (*Crx) 5-325 Mg Tablet PO 1 tab Q6H PRN Administration Pain Rated 4-10 Amitriptyline HCl 150 mg 05/27/25 21:00 05/30/25 21:36 Amitriptyline Hcl 25 Mg Tablet PO 150 mg HS IRENE Administration Benzonatate 200 mg 05/28/25 14:03 Benzonatate 100 Mg Capsule PO TID PRN Cough Budesonide 0.5 mg 05/28/25 20:00 05/31/25 07:43 Budesonide Respule Neb 0.5 Mg/2 Ml Amp INHALATION 0.5 mg Q12HRT IRENE Administration Bupropion HCl 150 mg 05/26/25 21:15 05/30/25 21:36 Bupropion Hcl Xl (24 Hr) 150 Mg Tabcr PO 150 mg HS IRENE Administration Buspirone HCl 10 mg 05/26/25 21:20 05/30/25 17:52 Buspirone Hcl 10 Mg Tablet PO 10 mg BID IRENE Administration Calcium Citrate 2 tablet 05/27/25 09:00 05/30/25 17:52 Calcium Citrate 315 Mg/Vitamin D 6.25 Mcg (250 Units) Tab PO 2 tablet BID IRENE Administration Diazepam 5 mg 05/30/25 09:56 05/30/25 10:30 Diazepam Inj (*Crx) 10 Mg/2 Ml Syringe IV PUSH 5 mg Q8HR PRN Administration Muscle Spasm Diltiazem HCl 240 mg 05/30/25 09:00 05/30/25 08:48 Diltiazem Hcl Cd 120 Mg Cap.24hr PO 240 mg QAM IRENE Administration Diphenhydramine HCl 25 mg 05/29/25 13:09 Diphenhydramine Hcl Cap 25 Mg Capsule PO Q6H PRN Itching Furosemide 20 mg 05/29/25 09:00 05/30/25 08:48 Furosemide 20 Mg Tablet PO 20 mg DAILY IRENE Administration Gabapentin 800 mg 05/26/25 21:15 05/30/25 21:36 Gabapentin 400 Mg Capsule PO 800 mg Q12HR IRENE Administration Guaifenesin 1,200 mg 05/26/25 21:40 05/30/25 21:36 Guaifenesin 12 Hr 600 Mg Tabcr PO 1,200 mg Q12HR IRENE Administration Hydrocortisone Sodium Succinate 25 mg 05/30/25 12:00 05/31/25 06:24 Hydrocortisone Sodium Succinate 100 Mg/2 Ml Vial IV PUSH 25 mg Q6HR IRENE Administration Azithromycin 500 mg/ Sodium 250 mls @ 250 mls/hr 05/30/25 10:00 05/30/25 10:31 Chloride IVPB 250 mls/hr Q24H IRENE Administration Ceftriaxone Sodium 1 gm/ 50 mls @ 100 mls/hr 05/31/25 10:00 Sodium Chloride IVPB Q24H IRENE Amiodarone HCl/Dextrose 360 mg in 200 mls @ 33.333 mls/hr 05/30/25 20:48 05/31/25 06:00 Nexterone 360 Mg/D5w 200 Ml IV CONT 1 mg/min .Q6H IRENE 33.33 mls/hr 1 MG/MIN Infusion Ipratropium [place] 0.5 mg 05/28/25 12:00 05/31/25 07:43 Ipratropium Br 0.02% Inh Soln 0.5 Mg/2.5 Ml Vial INHALATION 0.5 mg [id number] IRENE Administration Ketorolac Tromethamine 30 mg 05/30/25 10:25 05/30/25 21:41 Ketorolac 30 Mg/Ml Vial (*Bkc) IV PUSH 30 mg Q6H PRN Administration Pain Rated 4-6 Levothyroxine Sodium 75 mcg 05/27/25 06:30 05/31/25 05:58 Levothyroxine Sodium 75 Mcg Tablet PO Not Given DAILY@0630 [facility] Lidocaine 1 patch 05/28/25 14:05 05/30/25 08:51 Lidocaine 5% Patch TRANSDERM 1 patch DAILY IRENE Administration Multivitamins/Minerals 1 tab 05/27/25 09:00 05/30/25 08:48 Multivitamins /C Lutein (Centrum Silver) Tablet *Bkc PO 1 tab DAILY IRENE Administration Ondansetron HCl 4 mg 05/26/25 21:08 Ondansetron Inj 4 Mg/2 Ml Vial IV PUSH Q6H PRN Nausea And Vomiting Pantoprazole Sodium 40 mg 05/27/25 09:00 05/30/25 08:48 Pantoprazole 40 Mg Tablet PO 40 mg QAM IRENE Administration Quetiapine Fumarate 100 mg 05/26/25 21:40 05/30/25 21:36 Quetiapine Fumarate 100 Mg Tablet PO 100 mg HS IRENE Administration Quetiapine Fumarate 50 mg 05/26/25 21:40 05/30/25 21:36 Quetiapine Fumarate 25 Mg Tablet PO 50 mg HS IRENE Administration Rivaroxaban 20 mg 05/30/25 17:00 05/30/25 17:52 Rivaroxaban 20 Mg Tablet PO 20 mg DAILY@1700 IRENE Administration Sodium Chloride 1 spray 05/29/25 13:08 05/29/25 19:46 Saline 0.65% Slim Soln 44 Ml Btl NASAL 1 spray Q6HR PRN Administration Congestion Vitamin D 125 mcg 05/27/25 09:00 05/30/25 08:48 Cholecalciferol (Vitamin D3) 125 Mcg (5,000 Units) Tablet PO 125 mcg DAILY IRENE Administration Radiology Results: ITS Impressions Chest CTA 05/26/25 18:29 IMPRESSION: 1. Extensive bilateral airspace disease, compatible with pneumonia, right greater than left. 2: Enlarged mediastinal and right hilar lymph nodes, likely reactive. Abdomen Ultrasound 05/27/25 09:25 IMPRESSION: 1. Hepatomegaly, with steatosis and/or diffuse hepatocellular disease. 2. Cirrhosis not excluded. Chest X-Ray 05/30/25 08:25 Impression: Interval progression Shoulder CT 05/30/25 11:01 IMPRESSION: 1. Polyarticular osteoarthritis. 2. Diffuse right lung disease, consistent with pneumonia. 3. Small right pleural effusion. Cervical Spine CT 05/30/25 11:04 IMPRESSION: 1. Severe cervical spondylosis, stable from 12/15/2024. 2. Anterior fusion procedure from C4 to C6. 3. Bilateral pneumonia. Labs Labs: Laboratory Results - last 24 hr 05/29/25 05/30/25 05/31/25 04:24 03:37 03:39 WBC 7.5 RBC 3.43 L Hgb 11.1 L Hct 35.1 L MCV 102.3 H D MCH 32.4 MCHC 31.6 L RDW 14.3 Plt Count 292 MPV 10.2 Sodium 133 L Potassium 3.8 Chloride 101 Carbon Dioxide 27 Anion Gap 5 BUN 19 H Creatinine 0.88 Estim Creat Clear Calc 76 Estimated GFR > 60 Glucose 104 Calcium 8.8 Magnesium 2.1 Total Bilirubin 0.3 AST 24 ALT 45 H Alkaline Phosphatase 110 C-Reactive Protein 7.5 H Total Protein 5.7 L Albumin 3.0 L M.pneumoniae IgM Titer <770 Quality VTE Prophylaxis VTE prophylaxis: pharmacologic ordered
[2025-05-31] MEDS: LIDOCAINE 5% PATCH 1 PATCH TRANSDERM (08:57)
[2025-05-31] MEDS: KETOROLAC 30 MG/ML VIAL (*BKC) IV PUSH ×2 (09:02→21:34)
--- NOTE | 2025-05-31 09:03 | P.PNIM_ITS ---
Progress Note: A&P Assessment and Plan (1) Acute respiratory failure with hypoxia: Code(s): J96.01 - Acute respiratory failure with hypoxia Status: Acute Assessment and Plan: Patient on admission requiring 4 L supplemental oxygen to maintain 92% patient does not wear oxygen at home likely secondary to her underlying pneumonia as well AFib with RVR. * Will continue to wean oxygen as tolerated * CTA chest with no PE * Nebulizers scheduled * High flow titrated down to 3 L (2) Community acquired pneumonia: Code(s): J18.9 - Pneumonia, unspecified organism Status: Acute Assessment and Plan: CT showing bilateral pneumonia and elevated wbc's with acute respiratory failure with hypoxia. Patient with no HX of COPD, ILD or recurrent PNA. Had Worsening respiratory status overnight currently on High flow 30/65 FIO2. 05/30: CXR with interval progression of pneumonia but clinically improving. MRSA negative viral panel pending * IV Rocephin and azithromycin IV daily * Supplemental oxygen titrated down to 3 L * Ipratropium 0.5 * Blood cultures NGTD * Obtain sputum culture NGTD * Incentive spirometer * Guaifenesin 1200 mg BID ordered * Pulmicort * Legionella and strep urine pending * consult pulmonology appreciate any further recommendations * Hydrocortisone IVP 50mg Q6hr for severe PNA * added flutter valve and EZPAP (3) Atrial fibrillation with rapid ventricular response: Code(s): I48.91 - Unspecified atrial fibrillation Status: Acute Assessment and Plan: Patient with new onset AFib RVR rates in the 140s no previous history. Patient reports she has even had a Holter monitor in the past that showed no atrial fibrillation likely secondary to patient's infection and hypoxia. Patient received 1 time dose IVP metoprolol, remained in low 120s gave a single dose 25 mg Cardizem IVP with improvement but had not converted. Patient transition from Cardizem drip to oral Cardizem metoprolol has been discontinued after reports of reaction to metoprolol from patient rates in the low 100 then back into the 140's increased to 240mg daily remained uncontrolled. Cardiology giving 1x dose digoxin rate still uncontrolled switched to amio gtt with potentially need for cardioversion. * Echocardiogram: LVEF 65-70 % AFIB * Patient started on Amio gtt better controlled low 100's * Increased Xarelto back to 20mg * Possible cardioversion if no improvement (4) Transaminitis: Code(s): R74.01 - Elevation of levels of liver transaminase levels Status: Acute Assessment and Plan: Spoke with patient regarding her elevated liver enzymes which time she did hurt she has been taking a of Tylenol due to her to the pain could be underlying sebastian but also showed some fatty liver disease and cannot rule cirrhosis on the ultrasound patient reports she does not drink alcohol * AST is 185 and ALT is 243. In comparison in November the AST was 31 ALT was 47. Improving with fluids * US hepatomegaly with steatosis or diffuse hepatocellular disease unable to e xclude cirrhosis * Hepatitis panel negative * Lipid panel pending * Trend with labs * Recommended discontinuation Tylenol or reduce amount of daily intake (5) Anxiety: Code(s): F41.9 - Anxiety disorder, unspecified Status: Chronic Assessment and Plan: * Continue home medications of Wellbutrin, BuSpar, Seroquel (6) Hypertension: Code(s): I10 - Essential (primary) hypertension Status: Chronic Assessment and Plan: Soft BP 's * was on cardizem with soft BP's carvedilol D/C * BP stable today at 118/88 * Currently patient on no hypertensive medication on amnio gtt for rate control * would monitor see necessary to add any hypertensive medications (7) GERD (gastroesophageal reflux disease): Code(s): K21.9 - Gastro-esophageal reflux disease without esophagitis Status: Chronic Assessment and Plan: * Patient uses omeprazole at home switch to pantoprazole which is formulated (8) Hypothyroidism: Code(s): E03.9 - Hypothyroidism, unspecified Status: Chronic Assessment and Plan: * Continue levothyroxine * Check TSH WNL (9) Shoulder pain, right: Code(s): M25.511 - Pain in right shoulder Status: Acute Assessment and Plan: Patient with 10/10 right shoulder pain has HX of cervical surgery in Aug. * CT cervical/shoulder pending * Lidocaine patch * pain management with oral and IV narcotics * Toradol * Valium for muscle spasms Plan Code status: Full code per patient DVT prophylaxis: Lovenox Stress ulcer prophylaxis: Protonix 40 daily PT/OT notes: Ambulatory Disposition: Patient admitted to the medical unit initially being treated for pneumonia and acute respiratory failure with hypoxia patient remains in AFib but rate still with uncontrolled rate. Will continue to wean oxygen. Plan to return home at discharge when medically stable. Time Spent With Patient Time with patient: 25 - 35 minutes Subjective Date/time seen: 05/31/25 09:03 Interval history: Patient is a 65-year-old female admitted for evaluation treatment of acute respiratory failure hypoxia secondary to bilateral pneumonia in new onset AFib RVR. 05/31/2025: Patient feeling better today SOB is improving still with moderate productive cough but unable to clear secretions patient has been weaned down to 3 L nasal cannula. Her 8 still uncontrolled patient reports intermittent palpitation denies any chest pain. Patient also reported shoulder pain is better controlled with medication CT with no acute findings. Review of Systems Review of Systems: All systems reviewed & are unremarkable except as noted in HPI and below Exam Const: General: comfortable and no acute distress Other: Obese female HENMT: Face/Nose/Sinus: Normal nares present Mouth: Yes moist mucous membranes Eyes: General: appearance normal, both eyes and all related structures Neck: Neck: supple and no JVD Lymphatic: lymphadenopathy not noted Chest: Other: Nontender to palpation Resp: Effort & Inspection: abnormal respiratory effort (Increased effort), able to speak in complete sentences, Actively coughing and tachypneic Auscultation: crackles (Course) bilateral in the lower lung lynn (Right greater than left) and diminished lung sounds Cardio: Rate: tachycardic Rhythm: regular rhythm Heart sounds: no gallops, no murmurs and no rubs Other: Irregular irregular GI: Inspection: non-distended Auscultation: normal bowel sounds Skin: General skin exam: normal color, no rashes or lesions noted and No lesion Lesions: no lesions noted Wounds: no wounds Neuro: Speech: normal speech Motor exam (neuro): 5/5 motor strength present throughout and Normal motor muscle tone present throughout Other: No focal deficits Extrem: General: normal to inspection and no edema Psych: Mental Status: mental status grossly normal Affect: normal affect Objective Data Vital Signs Vital Signs: Vital Signs - 24 hr 05/30/25 10:00 05/30/25 10:30 05/30/25 10:39 Temperature Pulse Rate 132 H 122 H Respiratory Rate Blood Pressure Pulse Oximetry 96 Oxygen Delivery High Flow Nasal Cannula Oxygen Flow Rate 3 Fraction of Inspired Oxygen 05/30/25 11:30 05/30/25 11:41 05/30/25 11:59 Temperature 97.6 F Pulse Rate 126 H 120 H Respiratory Rate 20 19 Blood Pressure 106/75 Pulse Oximetry 96 95 Oxygen Delivery High Flow Nasal Cannula Oxygen Flow Rate 4 Fraction of Inspired Oxygen 05/30/25 12:00 05/30/25 12:00 05/30/25 12:08 Temperature Pulse Rate 130 H 122 H Respiratory Rate 19 Blood Pressure Pulse Oximetry 96 Oxygen Delivery High Flow Nasal Cannula Oxygen Flow Rate 3 Fraction of Inspired Oxygen 05/30/25 14:00 05/30/25 15:00 05/30/25 16:00 Temperature 97.8 F Pulse Rate 120 H 114 H Respiratory Rate 20 Blood Pressure 129/100 H Pulse Oximetry 95 93 Oxygen Delivery High Flow Nasal Cannula Oxygen Flow Rate 2 Fraction of Inspired Oxygen 05/30/25 16:00 05/30/25 16:01 05/30/25 16:18 Temperature Pulse Rate 110 H 121 H 132 H Respiratory Rate Blood Pressure Pulse Oximetry Oxygen Delivery Oxygen Flow Rate Fraction of Inspired Oxygen 05/30/25 17:05 05/30/25 17:11 05/30/25 17:11 Temperature Pulse Rate 135 H 130 H Respiratory Rate 19 19 Blood Pressure Pulse Oximetry 92 Oxygen Delivery High Flow Nasal Cannula Oxygen Flow Rate 2 Fraction of Inspired Oxygen 05/30/25 18:00 05/30/25 20:00 05/30/25 20:00 Temperature 98.5 F Pulse Rate 129 H 133 H 148 H Respiratory Rate 16 Blood Pressure 139/81 Pulse Oximetry 90 Oxygen Delivery Oxygen Flow Rate Fraction of Inspired Oxygen 05/30/25 20:00 05/30/25 20:00 05/30/25 20:30 Temperature Pulse Rate 112 H 123 H Respiratory Rate 20 Blood Pressure Pulse Oximetry 95 Oxygen Delivery High Flow Nasal Cannula Oxygen Flow Rate 2 Fraction of Inspired Oxygen 05/30/25 20:32 05/30/25 20:39 05/30/25 22:00 Temperature Pulse Rate 120 H 125 H 123 H Respiratory Rate 20 20 Blood Pressure 133/84 Pulse Oximetry 97 Oxygen Delivery High Flow Nasal Cannula Oxygen Flow Rate 2 Fraction of Inspired Oxygen 28 05/30/25 22:00 05/31/25 00:00 05/31/25 00:00 Temperature 98.5 F Pulse Rate 138 H 114 H Respiratory Rate 20 Blood Pressure 124/91 H Pulse Oximetry 94 92 Oxygen Delivery High Flow Nasal Cannula Oxygen Flow Rate 3 Fraction of Inspired Oxygen 05/31/25 00:00 05/31/25 00:00 05/31/25 02:00 Temperature Pulse Rate 115 H 113 H 97 Respiratory Rate Blood Pressure 141/92 H Pulse Oximetry Oxygen Delivery Oxygen Flow Rate Fraction of Inspired Oxygen 05/31/25 02:15 05/31/25 03:47 05/31/25 03:47 Temperature Pulse Rate 97 89 89 Respiratory Rate Blood Pressure 113/85 129/86 129/86 Pulse Oximetry Oxygen Delivery Oxygen Flow Rate Fraction of Inspired Oxygen 05/31/25 03:53 05/31/25 04:00 05/31/25 04:00 Temperature 98.1 F Pulse Rate 106 H 86 Respiratory Rate 18 Blood Pressure 114/73 129/86 Pulse Oximetry 92 92 Oxygen Delivery High Flow Nasal Cannula Oxygen Flow Rate 3 Fraction of Inspired Oxygen 05/31/25 04:00 05/31/25 06:00 05/31/25 06:00 Temperature Pulse Rate 95 92 100 Respiratory Rate Blood Pressure 118/82 Pulse Oximetry Oxygen Delivery Oxygen Flow Rate Fraction of Inspired Oxygen 05/31/25 07:18 05/31/25 07:43 05/31/25 07:43 Temperature 97.6 F Pulse Rate 98 106 H 106 H Respiratory Rate 20 20 20 Blood Pressure 118/88 Pulse Oximetry 92 92 Oxygen Delivery Nasal Cannula Oxygen Flow Rate 3 Fraction of Inspired Oxygen 05/31/25 07:54 Temperature Pulse Rate 103 H Respiratory Rate 20 Blood Pressure Pulse Oximetry Oxygen Delivery Oxygen Flow Rate Fraction of Inspired Oxygen Intake/Output Intake/Output: Intake & Output 05/28/25 05/29/25 05/30/25 05/31/25 23:59 23:59 23:59 23:59 Intake Total 1946.6 3030 1553.3 766.7 Output Total 2760 1550 900 600 Balance -813.4 1480 653.3 166.7 Meds/Results Medications: Active Medications Generic Name Dose Route Start Last Admin Trade Name Freq PRN Reason Stop Dose Admin Acetaminophen 650 mg 05/26/25 18:40 05/27/25 09:59 Acetaminophen 325 Mg Tablet PO 650 mg Q4H PRN Administration Mild Pain (1-3) or Fever Hydrocodone Bitart/Acetaminophen 1 tab 05/27/25 20:59 05/30/25 03:55 Hydrocodone/Acetaminophen (*Crx) 5-325 Mg Tablet PO 1 tab Q6H PRN Administration Pain Rated 4-10 Amitriptyline HCl 150 mg 05/27/25 21:00 05/30/25 21:36 Amitriptyline Hcl 25 Mg Tablet PO 150 mg HS IRENE Administration Benzonatate 200 mg 05/28/25 14:03 Benzonatate 100 Mg Capsule PO TID PRN Cough Budesonide 0.5 mg 05/28/25 20:00 05/31/25 07:43 Budesonide Respule Neb 0.5 Mg/2 Ml Amp INHALATION 0.5 mg Q12HRT IRENE Administration Bupropion HCl 150 mg 05/26/25 21:15 05/30/25 21:36 Bupropion Hcl Xl (24 Hr) 150 Mg Tabcr PO 150 mg HS IRENE Administration Buspirone HCl 10 mg 05/26/25 21:20 05/30/25 17:52 Buspirone Hcl 10 Mg Tablet PO 10 mg BID IRENE Administration Calcium Citrate 2 tablet 05/27/25 09:00 05/30/25 17:52 Calcium Citrate 315 Mg/Vitamin D 6.25 Mcg (250 Units) Tab PO 2 tablet BID IRENE Administration Diazepam 5 mg 05/30/25 09:56 05/30/25 10:30 Diazepam Inj (*Crx) 10 Mg/2 Ml Syringe IV PUSH 5 mg Q8HR PRN Administration Muscle Spasm Diltiazem HCl 240 mg 05/30/25 09:00 05/30/25 08:48 Diltiazem Hcl Cd 120 Mg Cap.24hr PO 240 mg QAM IRENE Administration Diphenhydramine HCl 25 mg 05/29/25 13:09 Diphenhydramine Hcl Cap 25 Mg Capsule PO Q6H PRN Itching Furosemide 20 mg 05/29/25 09:00 05/30/25 08:48 Furosemide 20 Mg Tablet PO 20 mg DAILY IRENE Administration Gabapentin 800 mg 05/26/25 21:15 05/30/25 21:36 Gabapentin 400 Mg Capsule PO 800 mg Q12HR IRENE Administration Guaifenesin 1,200 mg 05/26/25 21:40 05/30/25 21:36 Guaifenesin 12 Hr 600 Mg Tabcr PO 1,200 mg Q12HR IRENE Administration Hydrocortisone Sodium Succinate 25 mg 05/30/25 12:00 05/31/25 06:24 Hydrocortisone Sodium Succinate 100 Mg/2 Ml Vial IV PUSH 25 mg Q6HR IRENE Administration Azithromycin 500 mg/ Sodium 250 mls @ 250 mls/hr 05/30/25 10:00 05/30/25 10:31 Chloride IVPB 250 mls/hr Q24H IRENE Administration Ceftriaxone Sodium 1 gm/ 50 mls @ 100 mls/hr 05/31/25 10:00 Sodium Chloride IVPB Q24H IRENE Amiodarone HCl/Dextrose 360 mg in 200 mls @ 33.333 mls/hr 05/30/25 20:48 05/31/25 06:00 Nexterone 360 Mg/D5w 200 Ml IV CONT 1 mg/min .Q6H IRENE 33.33 mls/hr 1 MG/MIN Infusion Ipratropium [place] 0.5 mg 05/28/25 12:00 05/31/25 07:43 Ipratropium Br 0.02% Inh Soln 0.5 Mg/2.5 Ml Vial INHALATION 0.5 mg [id number] IRENE Administration Ketorolac Tromethamine 30 mg 05/30/25 10:25 05/31/25 09:02 Ketorolac 30 Mg/Ml Vial (*Bkc) IV PUSH 30 mg Q6H PRN Administration Pain Rated 4-6 Levothyroxine Sodium 75 mcg 05/27/25 06:30 05/31/25 05:58 Levothyroxine Sodium 75 Mcg Tablet PO Not Given DAILY@30 [facility] Lidocaine 1 patch 05/28/25 14:05 05/31/25 08:57 Lidocaine 5% Patch TRANSDERM 1 patch DAILY IRENE Administration Multivitamins/Minerals 1 tab 05/27/25 09:00 05/30/25 08:48 Multivitamins /C Lutein (Centrum Silver) Tablet *Bkc PO 1 tab DAILY IRENE Administration Ondansetron HCl 4 mg 05/26/25 21:08 Ondansetron Inj 4 Mg/2 Ml Vial IV PUSH Q6H PRN Nausea And Vomiting Pantoprazole Sodium 40 mg 05/27/25 09:00 05/30/25 08:48 Pantoprazole 40 Mg Tablet PO 40 mg QAM IRENE Administration Quetiapine Fumarate 100 mg 05/26/25 21:40 05/30/25 21:36 Quetiapine Fumarate 100 Mg Tablet PO 100 mg HS IRENE Administration Quetiapine Fumarate 50 mg 05/26/25 21:40 05/30/25 21:36 Quetiapine Fumarate 25 Mg Tablet PO 50 mg HS IRENE Administration Rivaroxaban 20 mg 05/30/25 17:00 05/30/25 17:52 Rivaroxaban 20 Mg Tablet PO 20 mg DAILY@1700 IRENE Administration Sodium Chloride 1 spray 05/29/25 13:08 05/29/25 19:46 Saline 0.65% Slim Soln 44 Ml Btl NASAL 1 spray Q6HR PRN Administration Congestion Vitamin D 125 mcg 05/27/25 09:00 05/30/25 08:48 Cholecalciferol (Vitamin D3) 125 Mcg (5,000 Units) Tablet PO 125 mcg DAILY IRENE Administration Radiology Results: ITS Impressions Chest CTA 05/26/25 18:29 IMPRESSION: 1. Extensive bilateral airspace disease, compatible with pneumonia, right greater than left. 2: Enlarged mediastinal and right hilar lymph nodes, likely reactive. Abdomen Ultrasound 05/27/25 09:25 IMPRESSION: 1. Hepatomegaly, with steatosis and/or diffuse hepatocellular disease. 2. Cirrhosis not excluded. Chest X-Ray 05/30/25 08:25 Impression: Interval progression Shoulder CT 05/30/25 11:01 IMPRESSION: 1. Polyarticular osteoarthritis. 2. Diffuse right lung disease, consistent with pneumonia. 3. Small right pleural effusion. Cervical Spine CT 05/30/25 11:04 IMPRESSION: 1. Severe cervical spondylosis, stable from 12/15/2024. 2. Anterior fusion procedure from C4 to C6. 3. Bilateral pneumonia. Labs Labs: Laboratory Results - last 24 hr 05/29/25 05/30/25 05/31/25 04:24 03:37 03:39 WBC 7.5 RBC 3.43 L Hgb 11.1 L Hct 35.1 L MCV 102.3 H D MCH 32.4 MCHC 31.6 L RDW 14.3 Plt Count 292 MPV 10.2 Sodium 133 L Potassium 3.8 Chloride 101 Carbon Dioxide 27 Anion Gap 5 BUN 19 H Creatinine 0.88 Estim Creat Clear Calc 76 Estimated GFR > 60 Glucose 104 Calcium 8.8 Magnesium 2.1 Total Bilirubin 0.3 AST 24 ALT 45 H Alkaline Phosphatase 110 C-Reactive Protein 7.5 H Total Protein 5.7 L Albumin 3.0 L M.pneumoniae IgM Titer <770 Quality VTE Prophylaxis VTE prophylaxis: pharmacologic ordered -Patient's previous records reviewed on admission -ER notes reviewed in detail on admission -discussed all findings and current treatment plan with patient/Family/POA -Consultations reviewed for recommendations -Patient's disposition for safe discharge discussed with bottle caser -radiology imaging, EKG and test results I have personally reviewed and interpreted unless otherwise specified Dictation performed by [employer] direct speech recognition software, therefore refuse driver variants and typographical errors may occur. Hospitalist [facility] [place] Advance Care Plan I have confirmed that the patient's Advanced Care Plan is present, code status is documented, or surrogate decision maker is listed in patient medical record.: Yes Medication Reconciliation I have utilized all available resources to obtain, update and review the patients current medications (includes all prescriptions, OTC, herbals, cannabis, and nutritional supplements).: Yes The patient is not eligible for med reconciliation; the patient is in a emergent medical situation where delaying treatment would jeopardize the patients health.: No
--- NOTE | 2025-05-31 09:38 | PM.PNPUL ---
Progress Note: A&P Assessment and Plan (1) Community acquired pneumonia: Code(s): J18.9 - Pneumonia, unspecified organism Status: Acute Assessment and Plan: Patient presents with 36 hours of chills, rigors, shortness of breath, rattling in the chest, shortness of breath with a leukocytosis 14.3, bandemia 5%, CT angiogram of the chest with no PE but extensive patchy consolidative ground-glass infiltrates throughout the entire right lung, left upper lobe and left lower lobe and now with worsening oxygenation requiring Airvo 30 L and 65% FiO2. Her CRP is 29.5. Initial COVID, RSV, influenza RT PCR and assay negative. MRSA RT PCR negative today. patient has a severe community-acquired pneumonia. She is afebrile, she feels better than she did when she presented, no longer has hemoptysis, leukocytosis has resolved. 05/28/25: Plan: At this time I will continue ceftriaxone and change the azithromycin to IV. She has severe community-acquired pneumonia as she is requiring high-flow nasal cannula and her CRP is 29.5. Her pneumonia severity index score is 50. I will initiate hydrocortisone 50 mg IV q.6 hours. Patient has a tachy arrhythmia and I will discontinue beta agonist. I will continue ipratropium as she says the nebulized treatments were helping her. I will continue budesonide 500 mcg q.12 hours. I will repeat COVID, influenza, RSV RT PCR assay, send respiratory pathogen panel, urine for Legionella antigen, urine for pneumococcal antigen, check serum mycoplasma IgM levels on 05/28/2025. If the patient should decompensate will consider her a ceftriaxone and azithromycin failure and change her to meropenem and Levaquin. 05/29/2025: Overall the patient tells me she is the same as yesterday but a 1000 times better than when she presented. Her shortness of breath at rest and dyspnea on exertion or unchanged. She states her cough is worse but is now dry which is better. When I enter the room she was on Airvo 30 L 65% FiO2 with saturations 94%. I decreased her to nasal cannula oxygen and sequentially decreased her to 7 L nasal cannula her saturations were 92%. She is afebrile. White blood cell count 7.4, creatinine 0.76. CRP has improved from 20/9 0.5 on 05/28/2025 to a value of 19.8 today. Procalcitonin has improved from 1.6 on 05/28/2025 to a value of 1.0 today. Repeat COVID, influenza, RSV RT PCR assay on 05/28/2020 5-. Plan: Overall the patient continues to improve. Her leukocytosis has resolved, she is afebrile, her oxygenation has improved and her CRP and procalcitonin are decreasing on ceftriaxone and azithromycin, both started 05/26/2025. Will continue. Continue Solu-Medrol 50 mg IV q.6 hours (day 2). Blood cultures, respiratory pathogen panel, urine Legionella, urine pneumococcal and serum IgM for mycoplasma all pending. I will check a chest x-ray on 05/30/2025. 05/30/2025: Patient tells me she is breathing better today. She has no rest shortness of breath. She is no longer feeling cold and clammy. Her cough is the same with no phlegm and no hemoptysis. Patient slept better last night. When I enter the room she was on 7 L nasal cannula saturations 97%. I decreased her to 4 L nasal cannula her saturations were 95%. White blood cell count 7.1, creatinine 0.68. Yesterday she is positive 1.4 L, cumulative she is positive 1.9 L. Her weight today is 124.1 kg. Chest x-ray today shows worsening consolidative infiltrates on the right. Patient remains in AFib with heart rates 130-155 when I was in the room. She had her diltiazem increased by Cardiology to 240 a day and digoxin was added today. She complains of right trapezius pain that was similar to her pain prior to her neck operation in August of 2024. After the operation this pain went away but returned to the hospital. She has no shoulder or clavicular pain. Ice helps. I gave her manual massage with minimal improvement. She has Minimal neck tenderness. to breathing does not make this pain worse. She is receiving Toradol. Plan: Patient continues to improve, she is no longer cold and clammy, her breathing is better. Her leukocytosis has resolved, her oxygenation has improved. Her chest x-ray shows more consolidation and I suspect this is atelectasis versus mucus plugging. I will add EzPAP and Cornet flutter valve. Once her heart rate is stabilized recommend out of bed to chair. Continue ceftriaxone and azithromycin both started 05/26/2025. I will decrease her Solu-Medrol to 25 mg IV q.6 hours, day 3 of steroids. Blood cultures negative. respiratory pathogen panel, urine Legionella, urine pneumococcal and serum IgM for mycoplasma all pending. 05/31/2025: Last night the patient continued with AFib and RVR was started on amiodarone. The patient tells me she continues to improve and is breathing normal at rest now. She has been bed-bound due to heart rate issues. She denies cough or hemoptysis. Her phlegm is thick. When I enter the room the patient was on 3 L nasal cannula saturations 92%. I decreased her to 2 L and her saturations were 90-91%. She is afebrile. White blood cell count 7.5, creatinine 0.88. Patient tells me she is scheduled for cardioversion today. Plan: patient continues to improve from her pneumonia. Continue ceftriaxone and azithromycin both started 05/26/2025 (day 5 antibiotics). I will decrease his Solu-Medrol to 25 mg IV q.12 hours, day 4 of steroids. Mycoplasma IgM negative. Respiratory pathogen, urine Legionella, urine pneumococcal pending. Discussed with Loni Pettit, will follow with you. (2) Acute respiratory failure with hypoxia: Code(s): J96.01 - Acute respiratory failure with hypoxia Status: Acute Assessment and Plan: Patient initially on no oxygen at home with no respiratory limitations. She has had 2 ABGs the last on 10 L with pH of 7.44/38/55. There is no evidence of hypercarbic respiratory failure. 05/26 16:00 room air, sats 93% 05/26 21:00 4 L NC, sats 92% 05/27 08:00 4 L NC, sats 91% 05/27 20:00 4 L NC, sats 90% 05/28 05:30 10 L NC, sats 86%, ABG 7.44/38.55 05/28 6:15 Airvo 30 L, 65%, sats 93% 05/28 11:00 Airvo 30 L, 65%, sats 95% 05/28 20:00 Airvo 30 L, 65%, sats 95% 05/29 07:45 Airvo 30 L, 65%, sats 94% 05/29 11:20 7 L NC, sats 92% 05/29 20:15 7 L NC, sats 91% 05/30 10:30 4 L NC, sasts 95% 05/30 20:00 2 L NC, sats 95% 05/31 08:15 2 L NC, sats 91% goal saturation 90-94%, adjust oxygen accordingly. Subjective Date/time seen: 05/31/25 09:38 Interval history: 05/28/25 This is a new pulmonary consult for pneumonia with hypoxemic respiratory failure. 65-year-old with a history of hypertension, gastric bypass with revision in 2012, GERD, gout, hypothyroidism, neuropathy, chronic knee pain. Patient has no history of asthma, COPD, recurrent pneumonias. Patient is a never smoker. She was exposed to secondhand smoke from both of her parents and from [id number]. She worked for [employer] and denies vaping, illicit drug use, sand blasting, welding, asbestos exposure, professional painting, steel construction millwright, coal mining, or construction work. At baseline the patient tells me she can walk 1 and half blocks but has to stop for knee pain rather than any breathing issues. She has no respiratory limitations in her activities of daily living. She is on no home O2. Patient is in the process of extensive dental work and on 05/24/2025 she had 6 teeth pulled under local anesthesia. Prior to this procedure and after this procedure she had no breathing problems. She was in pain but had no cough or phlegm production. She slept that night. On 05/25/2025 the patient woke up and had rattling in her chest, chills, rigors, shortness of breath. Patient states her phlegm was read and could have been blood. She was fatigued. She went to bed and slept all night and most of the morning on 05/26/2025. 05/26/25: She woke up with worse headache of her life and presented to the emergency department. In the emergency department her blood pressure was 122/68, heart rate 105, respirations 22, room air saturations 93%. Her weight was 113.5 she was afebrile. White blood cell count 14.3, bands were 5%, no eosinophils, creatinine 0.67, COVID, influenza, RSV RT PCR assay negative. Chest x-ray with bilateral pneumonia. CT angiogram of the chest with no PE, patchy ground-glass consolidative infiltrates throughout all the right lung, lasts pronounced in the left upper lobe and left lower lobe. Patient was placed on Rocephin and azithromycin. 05/27/2025. Patient had mild improvement. At 8:00 a.m. she was on 4 L nasal cannula saturations 91%. Her white blood cell count was 12.2 she was afebrile. ABG on 4 L was 7.43/39/60. Patient gone into AFib RVR and was placed on metoprolol and Xarelto per Cardiology. At 8:00 p.m. patient was on 4 L nasal cannula saturations 90%. 05/28/2025. Overall patient feels a little worse than yesterday she is more tired, she states that she has 25% back to her normal and improved since admission. She has more coughing today but less phlegm. She has no hemoptysis and yellow phlegm. If 5:30 a.m. she was on 10 L nasal cannula with desats and an ABG of 7.44/38/55 and was placed on Airvo 30 L and 65% with saturations 95%. white blood cell count is 9.2, creatinine is 0.82, CRP is 29.5, BNP is 4520, procalcitonin is 1.6. chest x-ray today unchanged compared to 05/27/2025 with diffuse infiltrates throughout the lower right lung field with decreased lung volumes on the right minimal infiltrates in the left base. 05/29/2025: Overall the patient tells me she is the same as yesterday but a 1000 times better than when she presented. Her shortness of breath at rest and dyspnea on exertion or unchanged. She states her cough is worse but is now dry which is better. When I enter the room she was on Airvo 30 L 65% FiO2 with saturations 94%. I decreased her to nasal cannula oxygen and sequentially decreased her to 7 L nasal cannula her saturations were 92%. She is afebrile. White blood cell count 7.4, creatinine 0.76. CRP has improved from 20/9 0.5 on 05/28/2025 to a value of 19.8 today. Procalcitonin has improved from 1.6 on 05/28/2025 to a value of 1.0 today. 05/30/2025: Patient tells me she is breathing better today. She has no rest shortness of breath. She is no longer feeling cold and clammy. Her cough is the same with no phlegm and no hemoptysis. Patient slept better last night. When I enter the room she was on 7 L nasal cannula saturations 97%. I decreased her to 4 L nasal cannula her saturations were 95%. White blood cell count 7.1, creatinine 0.68. Yesterday she is positive 1.4 L, cumulative she is positive 1.9 L. Her weight today is 124.1 kg. Chest x-ray today shows worsening consolidative infiltrates on the right. Patient remains in AFib with heart rates 130-155 when I was in the room. She had her diltiazem increased by Cardiology to 240 a day and digoxin was added today. She complains of right trapezius pain that was similar to her pain prior to her neck operation in August of 2024. After the operation this pain went away but returned to the hospital. She has no shoulder or clavicular pain. Ice helps. I gave her manual massage with minimal improvement. She has Minimal neck tenderness. to breathing does not make this pain worse. She is receiving Toradol. CT cervical spine without acute changes, shoulder x-ray without acute changes. 05/31/2025: Last night the patient continued with AFib and RVR was started on amiodarone. The patient tells me she continues to improve and is breathing normal at rest now. She has been bed-bound due to heart rate issues. She denies cough or hemoptysis. Her phlegm is thick. When I enter the room the patient was on 3 L nasal cannula saturations 92%. I decreased her to 2 L and her saturations were 90-91%. She is afebrile. White blood cell count 7.5, creatinine 0.88. Patient tells me she is scheduled for cardioversion today. DATA: 05/27/25: Echo Summary Summary 1. Complete two-dimensional, color flow and Doppler transthoracic echocardiogram is performed. 2. Small amount of mitral and tricuspid regurgitation. 3. Otherwise structurally normal appearing heart. 4. Atrial fibrillation. Left Ventricle Left ventricular chamber dimension is normal. Left ventricular systolic function is normal, estimated at 65-70. Right Ventricle Right ventricular chamber dimension is normal. Left Atria Left atrial chamber dimension is normal. Right Atria Right atrial chamber dimension is normal. Tricuspid peak gradient 26. 05/27/2025: ULTRASOUND ABDOMEN LIMITED (RIGHT UPPER QUADRANT) Clinical History: Transaminitis Comparison: CT chest 1 day prior Technique: Right upper quadrant sonography Findings: Liver: Normal size. Normal echotexture. No intrahepatic biliary ductal dilatation. Normal hepatopedal flow main portal vein. Micronodular contour. Common Duct: 7 mm. Gallbladder: Removed. Pancreas: Obscured by bowel gas. Right kidney: Unremarkable. Retrohepatic IVC: Unremarkable. IMPRESSION: 1. Hepatomegaly, with steatosis and/or diffuse hepatocellular disease. 2. Cirrhosis not excluded. 05/26/2025: EXAMINATION: CTA chest PE protocol DATE: 05/26/2025 18:29 CDT INDICATION: Pneumonia. Hemoptysis. TECHNIQUE: Computed tomographic angiography (CTA) of the chest was performed with 100 mL Omnipaque-350 intravenous contrast. The dose-length product was 885.28 mGy-cm. Maximum intensity projection 3D-reconstructions of the aorta and other arteries were constructed by the technologist on a separate workstation. COMPARISON: Chest x-ray dated 05/26/2025. FINDINGS: Study is technically adequate without evidence for pulmonary embolism. There is right hilar and subcarinal lymphadenopathy, likely reactive. There are bilateral breast implants. No significant pleural or pericardial effusion. There is extensive bilateral airspace consolidation, more so on the right, consistent with pneumonia. Airspace disease is most confluent in the right lower lobe. No endobronchial lesions. No pneumothorax. No significant pleural or pericardial effusion. There is surgical changes in the left upper abdomen. IMPRESSION: 1. Extensive bilateral airspace disease, compatible with pneumonia, right greater than left. 2: Enlarged mediastinal and right hilar lymph nodes, likely reactive. 12/15/2024: CHEST RADIOGRAPH CLINICAL HISTORY: fall . COMPARISON: 10/23/2021 TECHNIQUE: Single portable view of the chest. FINDINGS Significant elevation of the right hemidiaphragm with adjacent compressive atelectasis. The remainder of the lungs are clear. Dorsal column stimulator device is noted. The remainder of the cardiomediastinal silhouette is otherwise unremarkable. IMPRESSION: Elevation of the right hemidiaphragm with adjacent compressive atelectasis. The remainder of the lungs are clear. Review of Systems Constitutional: Constitutional: Reports no additional constitutional complaints Eyes: Eyes: Reports no additional eye complaints ENT: Reports system reviewed and no additional complaints, except as documented Cardiovascular: Cardiovascular: Reports no additional cardiovascular complaints Respiratory: Respiratory: Reports no additional respiratory complaints Gastrointestinal: Gastrointestinal: Reports no additional gastrointestinal complaints Musculoskeletal: Musculoskeletal: Reports no additional musculoskeletal complaints Neurologic: Reports system reviewed and no additional complaints, except as documented Psychiatric: Psychiatric: Reports no additional psychiatric complaints Endocrine: Endocrine: Reports no additional endocrine complaints Hematologic/Lymphatic: Hematologic/Lymphatic: Reports no additional hematologic/lymphatic complaints Allergic/Immunologic: Allergic/Immunologic: Reports no additional allergic/immunologic complaints Exam Const: General: cooperative, comfortable and no acute distress Orientation/consciousness: oriented to person, oriented to place and oriented to time HENMT: Head: normal to inspection Ears: hearing grossly normal bilaterally Eyes: General: appearance normal, both eyes and all related structures Neck: Neck: normal visual inspection Chest: Chest palpation & inspection: normal inspection of the chest Resp: Effort & Inspection: normal respiratory effort and able to speak in complete sentences Auscultation: crackles, no rales, no rhonchi, no wheezes and lung sounds not diminished Other: Diffuse crackles right lung and left base. Cardio: Jugular venous distension: no JVD Other: Irregularly Irregular GI: Inspection: normal to inspection Skin: General skin exam: normal color Neuro: General: oriented to person, oriented to place and oriented to time Extrem: General: normal to inspection and no edema Psych: Appearance: grossly normal Objective Data Vital Signs Vital Signs: Vital Signs - 24 hr 05/30/25 10:00 05/30/25 10:30 05/30/25 10:39 Temperature Pulse Rate 132 H 122 H Respiratory Rate Blood Pressure Pulse Oximetry 96 Oxygen Delivery High Flow Nasal Cannula Oxygen Flow Rate 3 Fraction of Inspired Oxygen 05/30/25 11:30 05/30/25 11:41 05/30/25 11:59 Temperature 36.4 C Pulse Rate 126 H 120 H Respiratory Rate 20 19 Blood Pressure 106/75 Pulse Oximetry 96 95 Oxygen Delivery High Flow Nasal Cannula Oxygen Flow Rate 4 Fraction of Inspired Oxygen 05/30/25 12:00 05/30/25 12:00 05/30/25 12:08 Temperature Pulse Rate 130 H 122 H Respiratory Rate 19 Blood Pressure Pulse Oximetry 96 Oxygen Delivery High Flow Nasal Cannula Oxygen Flow Rate 3 Fraction of Inspired Oxygen 05/30/25 14:00 05/30/25 15:00 05/30/25 16:00 Temperature 36.6 C Pulse Rate 120 H 114 H Respiratory Rate 20 Blood Pressure 129/100 H Pulse Oximetry 95 93 Oxygen Delivery High Flow Nasal Cannula Oxygen Flow Rate 2 Fraction of Inspired Oxygen 05/30/25 16:00 05/30/25 16:01 05/30/25 16:18 Temperature Pulse Rate 110 H 121 H 132 H Respiratory Rate Blood Pressure Pulse Oximetry Oxygen Delivery Oxygen Flow Rate Fraction of Inspired Oxygen 05/30/25 17:05 05/30/25 17:11 05/30/25 17:11 Temperature Pulse Rate 135 H 130 H Respiratory Rate 19 19 Blood Pressure Pulse Oximetry 92 Oxygen Delivery High Flow Nasal Cannula Oxygen Flow Rate 2 Fraction of Inspired Oxygen 05/30/25 18:00 05/30/25 20:00 05/30/25 20:00 Temperature 36.9 C Pulse Rate 129 H 133 H 148 H Respiratory Rate 16 Blood Pressure 139/81 Pulse Oximetry 90 Oxygen Delivery Oxygen Flow Rate Fraction of Inspired Oxygen 05/30/25 20:00 05/30/25 20:00 05/30/25 20:30 Temperature Pulse Rate 112 H 123 H Respiratory Rate 20 Blood Pressure Pulse Oximetry 95 Oxygen Delivery High Flow Nasal Cannula Oxygen Flow Rate 2 Fraction of Inspired Oxygen 05/30/25 20:32 05/30/25 20:39 05/30/25 22:00 Temperature Pulse Rate 120 H 125 H 123 H Respiratory Rate 20 20 Blood Pressure 133/84 Pulse Oximetry 97 Oxygen Delivery High Flow Nasal Cannula Oxygen Flow Rate 2 Fraction of Inspired Oxygen 28 05/30/25 22:00 05/31/25 00:00 05/31/25 00:00 Temperature 36.9 C Pulse Rate 138 H 114 H Respiratory Rate 20 Blood Pressure 124/91 H Pulse Oximetry 94 92 Oxygen Delivery High Flow Nasal Cannula Oxygen Flow Rate 3 Fraction of Inspired Oxygen 05/31/25 00:00 05/31/25 00:00 05/31/25 02:00 Temperature Pulse Rate 115 H 113 H 97 Respiratory Rate Blood Pressure 141/92 H Pulse Oximetry Oxygen Delivery Oxygen Flow Rate Fraction of Inspired Oxygen 05/31/25 02:15 05/31/25 03:47 05/31/25 03:47 Temperature Pulse Rate 97 89 89 Respiratory Rate Blood Pressure 113/85 129/86 129/86 Pulse Oximetry Oxygen Delivery Oxygen Flow Rate Fraction of Inspired Oxygen 05/31/25 03:53 05/31/25 04:00 05/31/25 04:00 Temperature 36.7 C Pulse Rate 106 H 86 Respiratory Rate 18 Blood Pressure 114/73 129/86 Pulse Oximetry 92 92 Oxygen Delivery High Flow Nasal Cannula Oxygen Flow Rate 3 Fraction of Inspired Oxygen 05/31/25 04:00 05/31/25 06:00 05/31/25 06:00 Temperature Pulse Rate 95 92 100 Respiratory Rate Blood Pressure 118/82 Pulse Oximetry Oxygen Delivery Oxygen Flow Rate Fraction of Inspired Oxygen 05/31/25 07:18 05/31/25 07:43 05/31/25 07:43 Temperature 36.4 C Pulse Rate 98 106 H 106 H Respiratory Rate 20 20 20 Blood Pressure 118/88 Pulse Oximetry 92 92 Oxygen Delivery Nasal Cannula Oxygen Flow Rate 3 Fraction of Inspired Oxygen 05/31/25 07:54 Temperature Pulse Rate 103 H Respiratory Rate 20 Blood Pressure Pulse Oximetry Oxygen Delivery Oxygen Flow Rate Fraction of Inspired Oxygen Intake/Output Intake/Output: Intake & Output 05/28/25 05/29/25 05/30/25 05/31/25 23:59 23:59 23:59 23:59 Intake Total 1946.6 3030 1553.3 766.7 Output Total 2760 1550 900 600 Balance -813.4 1480 653.3 166.7 Meds/Results Medications: Active Medications Generic Name Dose Route Start Last Admin Trade Name Freq PRN Reason Stop Dose Admin Acetaminophen 650 mg 05/26/25 18:40 05/27/25 09:59 Acetaminophen 325 Mg Tablet PO 650 mg Q4H PRN Administration Mild Pain (1-3) or Fever Hydrocodone Bitart/Acetaminophen 1 tab 05/27/25 20:59 05/30/25 03:55 Hydrocodone/Acetaminophen (*Crx) 5-325 Mg Tablet PO 1 tab Q6H PRN Administration Pain Rated 4-10 Amitriptyline HCl 150 mg 05/27/25 21:00 05/30/25 21:36 Amitriptyline Hcl 25 Mg Tablet PO 150 mg HS IRENE Administration Benzonatate 200 mg 05/28/25 14:03 Benzonatate 100 Mg Capsule PO TID PRN Cough Budesonide 0.5 mg 05/28/25 20:00 05/31/25 07:43 Budesonide Respule Neb 0.5 Mg/2 Ml Amp INHALATION 0.5 mg Q12HRT IRENE Administration Bupropion HCl 150 mg 05/26/25 21:15 05/30/25 21:36 Bupropion Hcl Xl (24 Hr) 150 Mg Tabcr PO 150 mg HS IRENE Administration Buspirone HCl 10 mg 05/26/25 21:20 05/30/25 17:52 Buspirone Hcl 10 Mg Tablet PO 10 mg BID IRENE Administration Calcium Citrate 2 tablet 05/27/25 09:00 05/30/25 17:52 Calcium Citrate 315 Mg/Vitamin D 6.25 Mcg (250 Units) Tab PO 2 tablet BID IRENE Administration Diazepam 5 mg 05/30/25 09:56 05/30/25 10:30 Diazepam Inj (*Crx) 10 Mg/2 Ml Syringe IV PUSH 5 mg Q8HR PRN Administration Muscle Spasm Diltiazem HCl 240 mg 05/30/25 09:00 05/30/25 08:48 Diltiazem Hcl Cd 120 Mg Cap.24hr PO 240 mg QAM IRENE Administration Diphenhydramine HCl 25 mg 05/29/25 13:09 Diphenhydramine Hcl Cap 25 Mg Capsule PO Q6H PRN Itching Furosemide 20 mg 05/29/25 09:00 05/30/25 08:48 Furosemide 20 Mg Tablet PO 20 mg DAILY IRENE Administration Gabapentin 800 mg 05/26/25 21:15 05/30/25 21:36 Gabapentin 400 Mg Capsule PO 800 mg Q12HR IRENE Administration Guaifenesin 1,200 mg 05/26/25 21:40 05/30/25 21:36 Guaifenesin 12 Hr 600 Mg Tabcr PO 1,200 mg Q12HR IRENE Administration Hydrocortisone Sodium Succinate 25 mg 05/30/25 12:00 05/31/25 06:24 Hydrocortisone Sodium Succinate 100 Mg/2 Ml Vial IV PUSH 25 mg Q6HR IRENE Administration Azithromycin 500 mg/ Sodium 250 mls @ 250 mls/hr 05/30/25 10:00 05/30/25 10:31 Chloride IVPB 250 mls/hr Q24H IRENE Administration Ceftriaxone Sodium 1 gm/ 50 mls @ 100 mls/hr 05/31/25 10:00 Sodium Chloride IVPB Q24H IRENE Amiodarone HCl/Dextrose 360 mg in 200 mls @ 33.333 mls/hr 05/30/25 20:48 05/31/25 06:00 Nexterone 360 Mg/D5w 200 Ml IV CONT 1 mg/min .Q6H IRENE 33.33 mls/hr 1 MG/MIN Infusion Ipratropium [place] 0.5 mg 05/28/25 12:00 05/31/25 07:43 Ipratropium Br 0.02% Inh Soln 0.5 Mg/2.5 Ml Vial INHALATION 0.5 mg [id number] [facility] Administration Ketorolac Tromethamine 30 mg 05/30/25 10:25 05/31/25 09:02 Ketorolac 30 Mg/Ml Vial (*Bkc) IV PUSH 30 mg Q6H PRN Administration Pain Rated 4-6 Levothyroxine Sodium 75 mcg 05/27/25 06:30 05/31/25 05:58 Levothyroxine Sodium 75 Mcg Tablet PO Not Given DAILY@0630 [facility] Lidocaine 1 patch 05/28/25 14:05 05/31/25 08:57 Lidocaine 5% Patch TRANSDERM 1 patch DAILY [facility] Administration Multivitamins/Minerals 1 tab 05/27/25 09:00 05/30/25 08:48 Multivitamins /C Lutein (Centrum Silver) Tablet *Bkc PO 1 tab DAILY [facility] Administration Ondansetron HCl 4 mg 05/26/25 21:08 Ondansetron Inj 4 Mg/2 Ml Vial IV PUSH Q6H PRN Nausea And Vomiting Pantoprazole Sodium 40 mg 05/27/25 09:00 05/30/25 08:48 Pantoprazole 40 Mg Tablet PO 40 mg QAM [facility] Administration Quetiapine Fumarate 100 mg 05/26/25 21:40 05/30/25 21:36 Quetiapine Fumarate 100 Mg Tablet PO 100 mg HS IRENE Administration Quetiapine Fumarate 50 mg 05/26/25 21:40 05/30/25 21:36 Quetiapine Fumarate 25 Mg Tablet PO 50 mg HS IRENE Administration Rivaroxaban 20 mg 05/30/25 17:00 05/30/25 17:52 Rivaroxaban 20 Mg Tablet PO 20 mg DAILY@1700 IRENE Administration Sodium Chloride 1 spray 05/29/25 13:08 05/29/25 19:46 Saline 0.65% Slim Soln 44 Ml Btl NASAL 1 spray Q6HR PRN Administration Congestion Vitamin D 125 mcg 05/27/25 09:00 05/30/25 08:48 Cholecalciferol (Vitamin D3) 125 Mcg (5,000 Units) Tablet PO 125 mcg DAILY IRENE Administration Radiology Results: ITS Impressions Chest CTA 05/26/25 18:29 IMPRESSION: 1. Extensive bilateral airspace disease, compatible with pneumonia, right greater than left. 2: Enlarged mediastinal and right hilar lymph nodes, likely reactive. Abdomen Ultrasound 05/27/25 09:25 IMPRESSION: 1. Hepatomegaly, with steatosis and/or diffuse hepatocellular disease. 2. Cirrhosis not excluded. Chest X-Ray 05/30/25 08:25 Impression: Interval progression Shoulder CT 05/30/25 11:01 IMPRESSION: 1. Polyarticular osteoarthritis. 2. Diffuse right lung disease, consistent with pneumonia. 3. Small right pleural effusion. Cervical Spine CT 05/30/25 11:04 IMPRESSION: 1. Severe cervical spondylosis, stable from 12/15/2024. 2. Anterior fusion procedure from C4 to C6. 3. Bilateral pneumonia. Labs Labs: Laboratory Results - last 24 hr 05/29/25 05/30/25 05/31/25 04:24 03:37 03:39 WBC 7.5 RBC 3.43 L Hgb 11.1 L Hct 35.1 L MCV 102.3 H D MCH 32.4 MCHC 31.6 L RDW 14.3 Plt Count 292 MPV 10.2 Sodium 133 L Potassium 3.8 Chloride 101 Carbon Dioxide 27 Anion Gap 5 BUN 19 H Creatinine 0.88 Estim Creat Clear Calc 76 Estimated GFR > 60 Glucose 104 Calcium 8.8 Magnesium 2.1 Total Bilirubin 0.3 AST 24 ALT 45 H Alkaline Phosphatase 110 C-Reactive Protein 7.5 H Total Protein 5.7 L Albumin 3.0 L M.pneumoniae IgM Titer <770
[2025-05-31] MEDS: dilTIAZem HCL CD 120 MG CAP.24HR 240 MG PO (09:58)
[2025-05-31] MEDS: CALCIUM CITRATE 315 MG/VITAMIN D 6.25 MCG (250 UNITS) TAB 2 TABLET PO ×2 (09:59→17:22)
[2025-05-31] MEDS: GABAPENTIN 400 MG CAPSULE 800 MG PO ×2 (10:00→22:01)
[2025-05-31] MEDS: PANTOPRAZOLE 40 MG TABLET PO (10:01)
[2025-05-31] MEDS: MULTIVITAMINS /C LUTEIN (CENTRUM SILVER) TABLET *BKC 1 TAB PO (10:01)
[2025-05-31] MEDS: LEVOTHYROXINE SODIUM 75 MCG TABLET PO (10:02)
[2025-05-31] MEDS: FUROSEMIDE 20 MG TABLET PO (10:02)
[2025-05-31] MEDS: CHOLECALCIFEROL (VITAMIN D3) 125 MCG (5,000 UNITS) TABLET PO (10:02)
[2025-05-31] MEDS: guaiFENesin 12 HR 600 MG TABCR 1200 MG PO ×2 (10:03→22:01)
[2025-05-31] MEDS: cefTRIAXone 1 GM in SODIUM CHLORIDE 0.9% IV 50 ML 100 ML IVPB (10:12)
[2025-05-31] MEDS: AZITHROMYCIN IV 500 MG in SODIUM CHLORIDE 0.9% IV 250 ML IVPB (10:53)
[2025-05-31] MEDS: HYDROcodone/acetaminophen (*CRX) 5-325 MG TABLET 1 TAB PO (11:01)
[2025-05-31] MEDS: diazePAM INJ (*CRX) 10 MG/2 ML SYRINGE 5 MG IV PUSH (12:03)
[2025-05-31] MEDS: RIVAROXABAN 20 MG TABLET PO (17:22)
[2025-05-31] MEDS: AMITRIPTYLINE HCL 25 MG TABLET 150 MG PO (22:01)
[2025-05-31] MEDS: buPROPion HCL XL (24 HR) 150 MG TABCR PO (22:01)
[2025-06-01] VITALS (34 sets, daily range): BP systolic 101–128; BP diastolic 52–99; PULSE 98–140; RESP 18–20; TEMP 36.4–36.6; O2SAT 87–98
[2025-06-01 03:56] LABS: Hematocrit 36.0 % (37.0-47.0); Hemoglobin 11.3 g/dL (12.0-15.0); Mean Corpuscular HGB Conc 31.4 g/dl (32-36); Mean Corpuscular Hemoglobin 32.3 pg (26-34); Mean Corpuscular Volume 102.9 fl (80-100); Platelet Count Result 280 k/mm3 (150-375); Red Blood Count 3.50 M/mm3 (4.2-5.4); White Blood Count 6.4 K/mm3 (4.5-10.0)
[2025-06-01 04:12] LABS: Alanine Aminotransferase 40 U/L (6-35); Albumin Level 2.7 g/dL (3.5-5.1); Alkaline Phosphatase 111 U/L (38-126); Anion Gap 7 mmol/L (4-12); Aspartate Amino Transferase 39 U/L (14-36); Bilirubin,Total 0.5 mg/dL (0.2-1.3); Blood Urea Nitrogen 19 mg/dL (7-17); Calcium 8.7 mg/dL (8.4-10.2); Carbon Dioxide 25 mmol/L (22-30); Chloride 101 mmol/L (98-107); Estimated CRCL calculation 72 ml/min; Estimated Glomerular Filt Rate 60; Glucose 89 mg/dL (65-110); Magnesium 1.9 mg/dL (1.6-2.3); Potassium 4.7 mmol/L (3.4-5.0); Sodium 133 mmol/L (137-145); Total Protein 5.2 g/dL (6.3-8.2)
[2025-06-01] MEDS: HYDROCORTISONE SODIUM SUCCINATE 100 MG/2 ML VIAL 25 MG IV PUSH ×2 (05:37→11:04)
[2025-06-01] MEDS: IPRATROPIUM BR 0.02% INH SOLN 0.5 MG/2.5 ML VIAL INHALATION ×4 (07:55→19:38)
[2025-06-01] MEDS: BUDESONIDE RESPULE NEB 0.5 MG/2 ML AMP INHALATION (07:56)
[2025-06-01] MEDS: LIDOCAINE 5% PATCH 1 PATCH TRANSDERM (09:11)
[2025-06-01] MEDS: MULTIVITAMINS /C LUTEIN (CENTRUM SILVER) TABLET *BKC 1 TAB PO (09:12)
[2025-06-01] MEDS: FUROSEMIDE 20 MG TABLET PO (09:12)
[2025-06-01] MEDS: CALCIUM CITRATE 315 MG/VITAMIN D 6.25 MCG (250 UNITS) TAB 2 TABLET PO ×2 (09:12→16:46)
[2025-06-01] MEDS: dilTIAZem HCL CD 120 MG CAP.24HR 240 MG PO (09:12)
[2025-06-01] MEDS: guaiFENesin 12 HR 600 MG TABCR 1200 MG PO ×2 (09:13→22:06)
[2025-06-01] MEDS: CHOLECALCIFEROL (VITAMIN D3) 125 MCG (5,000 UNITS) TABLET PO (09:13)
[2025-06-01] MEDS: GABAPENTIN 400 MG CAPSULE 800 MG PO ×2 (09:13→22:06)
[2025-06-01] MEDS: PANTOPRAZOLE 40 MG TABLET PO (09:14)
--- NOTE | 2025-06-01 09:39 | PM.PNPUL ---
Progress Note: A&P Assessment and Plan (1) Community acquired pneumonia: Code(s): J18.9 - Pneumonia, unspecified organism Status: Acute Assessment and Plan: Patient presents with 36 hours of chills, rigors, shortness of breath, rattling in the chest, shortness of breath with a leukocytosis 14.3, bandemia 5%, CT angiogram of the chest with no PE but extensive patchy consolidative ground-glass infiltrates throughout the entire right lung, left upper lobe and left lower lobe and now with worsening oxygenation requiring Airvo 30 L and 65% FiO2. Her CRP is 29.5. Initial COVID, RSV, influenza RT PCR and assay negative. MRSA RT PCR negative today. patient has a severe community-acquired pneumonia. She is afebrile, she feels better than she did when she presented, no longer has hemoptysis, leukocytosis has resolved. 05/28/25: Plan: At this time I will continue ceftriaxone and change the azithromycin to IV. She has severe community-acquired pneumonia as she is requiring high-flow nasal cannula and her CRP is 29.5. Her pneumonia severity index score is 50. I will initiate hydrocortisone 50 mg IV q.6 hours. Patient has a tachy arrhythmia and I will discontinue beta agonist. I will continue ipratropium as she says the nebulized treatments were helping her. I will continue budesonide 500 mcg q.12 hours. I will repeat COVID, influenza, RSV RT PCR assay, send respiratory pathogen panel, urine for Legionella antigen, urine for pneumococcal antigen, check serum mycoplasma IgM levels on 05/28/2025. If the patient should decompensate will consider her a ceftriaxone and azithromycin failure and change her to meropenem and Levaquin. 05/29/2025: Overall the patient tells me she is the same as yesterday but a 1000 times better than when she presented. Her shortness of breath at rest and dyspnea on exertion or unchanged. She states her cough is worse but is now dry which is better. When I enter the room she was on Airvo 30 L 65% FiO2 with saturations 94%. I decreased her to nasal cannula oxygen and sequentially decreased her to 7 L nasal cannula her saturations were 92%. She is afebrile. White blood cell count 7.4, creatinine 0.76. CRP has improved from 20/9 0.5 on 05/28/2025 to a value of 19.8 today. Procalcitonin has improved from 1.6 on 05/28/2025 to a value of 1.0 today. Repeat COVID, influenza, RSV RT PCR assay on 05/28/2020 5-. Plan: Overall the patient continues to improve. Her leukocytosis has resolved, she is afebrile, her oxygenation has improved and her CRP and procalcitonin are decreasing on ceftriaxone and azithromycin, both started 05/26/2025. Will continue. Continue Solu-Medrol 50 mg IV q.6 hours (day 2). Blood cultures, respiratory pathogen panel, urine Legionella, urine pneumococcal and serum IgM for mycoplasma all pending. I will check a chest x-ray on 05/30/2025. 05/30/2025: Patient tells me she is breathing better today. She has no rest shortness of breath. She is no longer feeling cold and clammy. Her cough is the same with no phlegm and no hemoptysis. Patient slept better last night. When I enter the room she was on 7 L nasal cannula saturations 97%. I decreased her to 4 L nasal cannula her saturations were 95%. White blood cell count 7.1, creatinine 0.68. Yesterday she is positive 1.4 L, cumulative she is positive 1.9 L. Her weight today is 124.1 kg. Chest x-ray today shows worsening consolidative infiltrates on the right. Patient remains in AFib with heart rates 130-155 when I was in the room. She had her diltiazem increased by Cardiology to 240 a day and digoxin was added today. She complains of right trapezius pain that was similar to her pain prior to her neck operation in August of 2024. After the operation this pain went away but returned to the hospital. She has no shoulder or clavicular pain. Ice helps. I gave her manual massage with minimal improvement. She has Minimal neck tenderness. to breathing does not make this pain worse. She is receiving Toradol. Plan: Patient continues to improve, she is no longer cold and clammy, her breathing is better. Her leukocytosis has resolved, her oxygenation has improved. Her chest x-ray shows more consolidation and I suspect this is atelectasis versus mucus plugging. I will add EzPAP and Cornet flutter valve. Once her heart rate is stabilized recommend out of bed to chair. Continue ceftriaxone and azithromycin both started 05/26/2025. I will decrease her Solu-Medrol to 25 mg IV q.6 hours, day 3 of steroids. Blood cultures negative. respiratory pathogen panel, urine Legionella, urine pneumococcal and serum IgM for mycoplasma all pending. 05/31/2025: Last night the patient continued with AFib and RVR was started on amiodarone. The patient tells me she continues to improve and is breathing normal at rest now. She has been bed-bound due to heart rate issues. She denies cough or hemoptysis. Her phlegm is thick. When I enter the room the patient was on 3 L nasal cannula saturations 92%. I decreased her to 2 L and her saturations were 90-91%. She is afebrile. White blood cell count 7.5, creatinine 0.88. Patient tells me she is scheduled for cardioversion today. Plan: patient continues to improve from her pneumonia. Continue ceftriaxone and azithromycin both started 05/26/2025 (day 5 antibiotics). I will decrease his Solu-Medrol to 25 mg IV q.12 hours, day 4 of steroids. Mycoplasma IgM negative. Respiratory pathogen, urine Legionella, urine pneumococcal pending. 06/01/2025 : Patient tells me her breathing continues to improve. Her breathing is now normal at rest. When she pivots to go to the bedside commode she had no shortness of breath but her heart rate did increase. She has a cough with no phlegm and no hemoptysis. Currently patient is on 2 L nasal cannula saturations 92%. She is afebrile. White blood cell count 6.4, creatinine 0.94. Yesterday she was positive 963 mL and cumulative she is positive 4.66 L since admission. Her weight today is 125 kg. Plan: patient continues to improve from her pneumonia. Continue ceftriaxone and azithromycin both started 05/26/2025 (day 6 antibiotics). I will decrease his Solu-Medrol to 25 mg IV qD, day 5 of steroids. last dose on 06/02/2025. Mycoplasma IgM negative. Respiratory pathogen could not be run because the RT PCR was inhibited, urine Legionella, urine pneumococcal pending. I will discontinue the budesonide nebulization continue ipratropium as she states this is helping her. I will check a portable chest x-ray on 06/02/2025. AFib with RVR being managed by Cardiology and hospitalist currently on diltiazem, amiodarone and Lasix 20 p.o. q.day. Will follow with you. (2) Acute respiratory failure with hypoxia: Code(s): J96.01 - Acute respiratory failure with hypoxia Status: Acute Assessment and Plan: Patient initially on no oxygen at home with no respiratory limitations. She has had 2 ABGs the last on 10 L with pH of 7.44/38/55. There is no evidence of hypercarbic respiratory failure. 05/26 16:00 room air, sats 93% 05/26 21:00 4 L NC, sats 92% 05/27 08:00 4 L NC, sats 91% 05/27 20:00 4 L NC, sats 90% 05/28 05:30 10 L NC, sats 86%, ABG 7.44/38.55 05/28 6:15 Airvo 30 L, 65%, sats 93% 05/28 11:00 Airvo 30 L, 65%, sats 95% 05/28 20:00 Airvo 30 L, 65%, sats 95% 05/29 07:45 Airvo 30 L, 65%, sats 94% 05/29 11:20 7 L NC, sats 92% 05/29 20:15 7 L NC, sats 91% 05/30 10:30 4 L NC, sats 95% 05/30 20:00 2 L NC, sats 95% 05/31 08:15 2 L NC, sats 91% 06/01 07:45 2 L NC, sats 92% goal saturation 90-94%, adjust oxygen accordingly. 06/01/2025: I will perform overnight oximetry on 2 L nasal cannula. She will need a home O2 assessment prior to discharge. Subjective Date/time seen: 06/01/25 09:39 Interval history: 05/28/25 This is a new pulmonary consult for pneumonia with hypoxemic respiratory failure. 65-year-old with a history of hypertension, gastric bypass with revision in 2012, GERD, gout, hypothyroidism, neuropathy, chronic knee pain. Patient has no history of asthma, COPD, recurrent pneumonias. Patient is a never smoker. She was exposed to secondhand smoke from both of her parents and from [id number]. She worked for [employer] and denies vaping, illicit drug use, sand blasting, welding, asbestos exposure, professional painting, steel cereal miller, coal mining, or construction work. At baseline the patient tells me she can walk 1 and half blocks but has to stop for knee pain rather than any breathing issues. She has no respiratory limitations in her activities of daily living. She is on no home O2. Patient is in the process of extensive dental work and on 05/24/2025 she had 6 teeth pulled under local anesthesia. Prior to this procedure and after this procedure she had no breathing problems. She was in pain but had no cough or phlegm production. She slept that night. On 05/25/2025 the patient woke up and had rattling in her chest, chills, rigors, shortness of breath. Patient states her phlegm was read and could have been blood. She was fatigued. She went to bed and slept all night and most of the morning on 05/26/2025. 05/26/25: She woke up with worse headache of her life and presented to the emergency department. In the emergency department her blood pressure was 122/68, heart rate 105, respirations 22, room air saturations 93%. Her weight was 113.5 she was afebrile. White blood cell count 14.3, bands were 5%, no eosinophils, creatinine 0.67, COVID, influenza, RSV RT PCR assay negative. Chest x-ray with bilateral pneumonia. CT angiogram of the chest with no PE, patchy ground-glass consolidative infiltrates throughout all the right lung, lasts pronounced in the left upper lobe and left lower lobe. Patient was placed on Rocephin and azithromycin. 05/27/2025. Patient had mild improvement. At 8:00 a.m. she was on 4 L nasal cannula saturations 91%. Her white blood cell count was 12.2 she was afebrile. ABG on 4 L was 7.43/39/60. Patient gone into AFib RVR and was placed on metoprolol and Xarelto per Cardiology. At 8:00 p.m. patient was on 4 L nasal cannula saturations 90%. 05/28/2025. Overall patient feels a little worse than yesterday she is more tired, she states that she has 25% back to her normal and improved since admission. She has more coughing today but less phlegm. She has no hemoptysis and yellow phlegm. If 5:30 a.m. she was on 10 L nasal cannula with desats and an ABG of 7.44/38/55 and was placed on Airvo 30 L and 65% with saturations 95%. white blood cell count is 9.2, creatinine is 0.82, CRP is 29.5, BNP is 4520, procalcitonin is 1.6. chest x-ray today unchanged compared to 05/27/2025 with diffuse infiltrates throughout the lower right lung field with decreased lung volumes on the right minimal infiltrates in the left base. 05/29/2025: Overall the patient tells me she is the same as yesterday but a 1000 times better than when she presented. Her shortness of breath at rest and dyspnea on exertion or unchanged. She states her cough is worse but is now dry which is better. When I enter the room she was on Airvo 30 L 65% FiO2 with saturations 94%. I decreased her to nasal cannula oxygen and sequentially decreased her to 7 L nasal cannula her saturations were 92%. She is afebrile. White blood cell count 7.4, creatinine 0.76. CRP has improved from 20/9 0.5 on 05/28/2025 to a value of 19.8 today. Procalcitonin has improved from 1.6 on 05/28/2025 to a value of 1.0 today. 05/30/2025: Patient tells me she is breathing better today. She has no rest shortness of breath. She is no longer feeling cold and clammy. Her cough is the same with no phlegm and no hemoptysis. Patient slept better last night. When I enter the room she was on 7 L nasal cannula saturations 97%. I decreased her to 4 L nasal cannula her saturations were 95%. White blood cell count 7.1, creatinine 0.68. Yesterday she is positive 1.4 L, cumulative she is positive 1.9 L. Her weight today is 124.1 kg. Chest x-ray today shows worsening consolidative infiltrates on the right. Patient remains in AFib with heart rates 130-155 when I was in the room. She had her diltiazem increased by Cardiology to 240 a day and digoxin was added today. She complains of right trapezius pain that was similar to her pain prior to her neck operation in August of 2024. After the operation this pain went away but returned to the hospital. She has no shoulder or clavicular pain. Ice helps. I gave her manual massage with minimal improvement. She has Minimal neck tenderness. to breathing does not make this pain worse. She is receiving Toradol. CT cervical spine without acute changes, shoulder x-ray without acute changes. 05/31/2025: Last night the patient continued with AFib and RVR was started on amiodarone. The patient tells me she continues to improve and is breathing normal at rest now. She has been bed-bound due to heart rate issues. She denies cough or hemoptysis. Her phlegm is thick. When I enter the room the patient was on 3 L nasal cannula saturations 92%. I decreased her to 2 L and her saturations were 90-91%. She is afebrile. White blood cell count 7.5, creatinine 0.88. Patient tells me she is scheduled for cardioversion today. 06/01/2025 : Patient tells me her breathing continues to improve. Her breathing is now normal at rest. When she pivots to go to the bedside commode she had no shortness of breath but her heart rate did increase. She has a cough with no phlegm and no hemoptysis. Currently patient is on 2 L nasal cannula saturations 92%. She is afebrile. White blood cell count 6.4, creatinine 0.94. Yesterday she was positive 963 mL and cumulative she is positive 4.66 L since admission. Her weight today is 125 kg. DATA: 05/27/25: Echo Summary Summary 1. Complete two-dimensional, color flow and Doppler transthoracic echocardiogram is performed. 2. Small amount of mitral and tricuspid regurgitation. 3. Otherwise structurally normal appearing heart. 4. Atrial fibrillation. Left Ventricle Left ventricular chamber dimension is normal. Left ventricular systolic function is normal, estimated at 65-70. Right Ventricle Right ventricular chamber dimension is normal. Left Atria Left atrial chamber dimension is normal. Right Atria Right atrial chamber dimension is normal. Tricuspid peak gradient 26. 05/27/2025: ULTRASOUND ABDOMEN LIMITED (RIGHT UPPER QUADRANT) Clinical History: Transaminitis Comparison: CT chest 1 day prior Technique: Right upper quadrant sonography Findings: Liver: Normal size. Normal echotexture. No intrahepatic biliary ductal dilatation. Normal hepatopedal flow main portal vein. Micronodular contour. Common Duct: 7 mm. Gallbladder: Removed. Pancreas: Obscured by bowel gas. Right kidney: Unremarkable. Retrohepatic IVC: Unremarkable. IMPRESSION: 1. Hepatomegaly, with steatosis and/or diffuse hepatocellular disease. 2. Cirrhosis not excluded. 05/26/2025: EXAMINATION: CTA chest PE protocol DATE: 05/26/2025 18:29 CDT INDICATION: Pneumonia. Hemoptysis. TECHNIQUE: Computed tomographic angiography (CTA) of the chest was performed with 100 mL Omnipaque-350 intravenous contrast. The dose-length product was 885.28 mGy-cm. Maximum intensity projection 3D-reconstructions of the aorta and other arteries were constructed by the technologist on a separate workstation. COMPARISON: Chest x-ray dated 05/26/2025. FINDINGS: Study is technically adequate without evidence for pulmonary embolism. There is right hilar and subcarinal lymphadenopathy, likely reactive. There are bilateral breast implants. No significant pleural or pericardial effusion. There is extensive bilateral airspace consolidation, more so on the right, consistent with pneumonia. Airspace disease is most confluent in the right lower lobe. No endobronchial lesions. No pneumothorax. No significant pleural or pericardial effusion. There is surgical changes in the left upper abdomen. IMPRESSION: 1. Extensive bilateral airspace disease, compatible with pneumonia, right greater than left. 2: Enlarged mediastinal and right hilar lymph nodes, likely reactive. 12/15/2024: CHEST RADIOGRAPH CLINICAL HISTORY: fall . COMPARISON: 10/23/2021 TECHNIQUE: Single portable view of the chest. FINDINGS Significant elevation of the right hemidiaphragm with adjacent compressive atelectasis. The remainder of the lungs are clear. Dorsal column stimulator device is noted. The remainder of the cardiomediastinal silhouette is otherwise unremarkable. IMPRESSION: Elevation of the right hemidiaphragm with adjacent compressive atelectasis. The remainder of the lungs are clear. Review of Systems Constitutional: Constitutional: Reports no additional constitutional complaints Eyes: Eyes: Reports no additional eye complaints ENT: Reports system reviewed and no additional complaints, except as documented Cardiovascular: Cardiovascular: Reports no additional cardiovascular complaints Respiratory: Respiratory: Reports no additional respiratory complaints Gastrointestinal: Gastrointestinal: Reports no additional gastrointestinal complaints Musculoskeletal: Musculoskeletal: Reports no additional musculoskeletal complaints Neurologic: Reports system reviewed and no additional complaints, except as documented Psychiatric: Psychiatric: Reports no additional psychiatric complaints Endocrine: Endocrine: Reports no additional endocrine complaints Hematologic/Lymphatic: Hematologic/Lymphatic: Reports no additional hematologic/lymphatic complaints Allergic/Immunologic: Allergic/Immunologic: Reports no additional allergic/immunologic complaints Exam Const: General: cooperative, comfortable and no acute distress Orientation/consciousness: oriented to person, oriented to place and oriented to time HENMT: Head: normal to inspection Ears: hearing grossly normal bilaterally Eyes: General: appearance normal, both eyes and all related structures Neck: Neck: normal visual inspection Chest: Chest palpation & inspection: normal inspection of the chest Resp: Effort & Inspection: normal respiratory effort and able to speak in complete sentences Auscultation: crackles, no rales, no rhonchi, no wheezes and lung sounds not diminished Other: Diffuse crackles right lung and left base. Improved today Cardio: Jugular venous distension: no JVD Other: Irregularly Irregular GI: Inspection: normal to inspection Skin: General skin exam: normal color Neuro: General: oriented to person, oriented to place and oriented to time Extrem: General: normal to inspection and no edema Psych: Appearance: grossly normal Objective Data Vital Signs Vital Signs: Vital Signs - 24 hr 05/31/25 09:42 05/31/25 09:42 05/31/25 10:00 Temperature Pulse Rate 112 H 112 H 110 H Respiratory Rate Blood Pressure 118/88 118/88 Pulse Oximetry Oxygen Delivery Oxygen Flow Rate 05/31/25 11:02 05/31/25 12:00 05/31/25 12:00 Temperature 36.5 C Pulse Rate 127 H 111 H Respiratory Rate 20 Blood Pressure 120/84 Pulse Oximetry 99 97 Oxygen Delivery High Flow Nasal Cannula Oxygen Flow Rate 2 05/31/25 12:03 05/31/25 12:03 05/31/25 12:10 Temperature Pulse Rate 120 H 120 H 115 H Respiratory Rate 20 20 20 Blood Pressure Pulse Oximetry 91 Oxygen Delivery Nasal Cannula Oxygen Flow Rate 2 05/31/25 14:00 05/31/25 15:27 05/31/25 15:27 Temperature Pulse Rate 115 H 104 H 104 H Respiratory Rate Blood Pressure 120/84 120/84 Pulse Oximetry Oxygen Delivery Oxygen Flow Rate 05/31/25 15:43 05/31/25 16:00 05/31/25 16:00 Temperature 36.4 C L Pulse Rate 110 H 113 H Respiratory Rate 20 Blood Pressure 124/83 Pulse Oximetry 91 92 Oxygen Delivery High Flow Nasal Cannula Oxygen Flow Rate 2 05/31/25 16:39 05/31/25 16:39 05/31/25 16:49 Temperature Pulse Rate 130 H 130 H 122 H Respiratory Rate 20 20 20 Blood Pressure Pulse Oximetry 96 Oxygen Delivery Nasal Cannula Oxygen Flow Rate 2 05/31/25 18:00 05/31/25 20:00 05/31/25 20:00 Temperature Pulse Rate 133 H 119 H Respiratory Rate Blood Pressure 119/73 Pulse Oximetry 94 Oxygen Delivery Nasal Cannula Oxygen Flow Rate 2 05/31/25 20:00 05/31/25 20:31 05/31/25 20:36 Temperature 36.4 C Pulse Rate 120 H 123 H 111 H Respiratory Rate 18 20 Blood Pressure 119/73 Pulse Oximetry 90 Oxygen Delivery Oxygen Flow Rate 05/31/25 20:43 05/31/25 20:47 05/31/25 22:00 Temperature Pulse Rate 111 H 117 H 121 H Respiratory Rate 20 20 Blood Pressure 124/78 Pulse Oximetry 94 Oxygen Delivery Nasal Cannula Oxygen Flow Rate 2 05/31/25 22:00 05/31/25 23:57 06/01/25 00:00 Temperature 36.6 C Pulse Rate 110 H 115 H Respiratory Rate 18 Blood Pressure 123/83 Pulse Oximetry 90 95 Oxygen Delivery Nasal Cannula Oxygen Flow Rate 2 06/01/25 00:00 06/01/25 00:00 06/01/25 02:00 Temperature Pulse Rate 98 130 H 109 H Respiratory Rate Blood Pressure 123/83 Pulse Oximetry Oxygen Delivery Oxygen Flow Rate 06/01/25 02:00 06/01/25 04:00 06/01/25 04:00 Temperature Pulse Rate 98 108 H Respiratory Rate Blood Pressure 120/80 128/74 Pulse Oximetry 95 Oxygen Delivery Nasal Cannula Oxygen Flow Rate 2 06/01/25 04:00 06/01/25 04:12 06/01/25 04:38 Temperature 36.6 C Pulse Rate 117 H 110 H 108 H Respiratory Rate 20 Blood Pressure 128/74 112/70 Pulse Oximetry 93 Oxygen Delivery Oxygen Flow Rate 06/01/25 06:00 06/01/25 07:32 06/01/25 07:55 Temperature 36.4 C Pulse Rate 102 H 107 H Respiratory Rate 18 Blood Pressure 113/84 Pulse Oximetry 93 92 Oxygen Delivery Nasal Cannula Oxygen Flow Rate 2 06/01/25 07:55 06/01/25 08:00 06/01/25 08:13 Temperature Pulse Rate 118 H 107 H 113 H Respiratory Rate 20 20 Blood Pressure 113/84 Pulse Oximetry Oxygen Delivery Oxygen Flow Rate 06/01/25 09:37 06/01/25 09:37 Temperature Pulse Rate 114 H 114 H Respiratory Rate Blood Pressure 127/99 H 127/99 H Pulse Oximetry Oxygen Delivery Oxygen Flow Rate Intake/Output Intake/Output: Intake & Output 05/29/25 05/30/25 05/31/25 06/01/25 23:59 23:59 23:59 23:59 Intake Total 3030 1803.3 2013.3 1620.6 Output Total 9978 040 7598 1800 Balance 1480 903.3 963.3 -179.4 Meds/Results Medications: Active Medications Generic Name Dose Route Start Last Admin Trade Name Freq PRN Reason Stop Dose Admin Acetaminophen 650 mg 05/26/25 18:40 05/27/25 09:59 Acetaminophen 325 Mg Tablet PO 650 mg Q4H PRN Administration Mild Pain (1-3) or Fever Hydrocodone Bitart/Acetaminophen 1 tab 05/27/25 20:59 05/31/25 11:01 Hydrocodone/Acetaminophen (*Crx) 5-325 Mg Tablet PO 1 tab Q6H PRN Administration Pain Rated 4-10 Amitriptyline HCl 150 mg 05/27/25 21:00 05/31/25 22:01 Amitriptyline Hcl 25 Mg Tablet PO 150 mg HS IRENE Administration Benzonatate 200 mg 05/28/25 14:03 Benzonatate 100 Mg Capsule PO TID PRN Cough Budesonide 0.5 mg 05/28/25 20:00 06/01/25 07:56 Budesonide Respule Neb 0.5 Mg/2 Ml Amp INHALATION 0.5 mg Q12HRT IRENE Administration Bupropion HCl 150 mg 05/26/25 21:15 05/31/25 22:01 Bupropion Hcl Xl (24 Hr) 150 Mg Tabcr PO 150 mg HS IRENE Administration Buspirone HCl 10 mg 05/26/25 21:20 06/01/25 09:12 Buspirone Hcl 10 Mg Tablet PO 10 mg BID IRENE Administration Calcium Citrate 2 tablet 05/27/25 09:00 06/01/25 09:12 Calcium Citrate 315 Mg/Vitamin D 6.25 Mcg (250 Units) Tab PO 2 tablet BID IRENE Administration Diazepam 5 mg 05/30/25 09:56 05/31/25 12:03 Diazepam Inj (*Crx) 10 Mg/2 Ml Syringe IV PUSH 5 mg Q8HR PRN Administration Muscle Spasm Diltiazem HCl 240 mg 05/30/25 09:00 06/01/25 09:12 Diltiazem Hcl Cd 120 Mg Cap.24hr PO 240 mg QAM IRENE Administration Diphenhydramine HCl 25 mg 05/29/25 13:09 Diphenhydramine Hcl Cap 25 Mg Capsule PO Q6H PRN Itching Furosemide 20 mg 05/29/25 09:00 06/01/25 09:12 Furosemide 20 Mg Tablet PO 20 mg DAILY IRENE Administration Gabapentin 800 mg 05/26/25 21:15 06/01/25 09:13 Gabapentin 400 Mg Capsule PO 800 mg Q12HR IRENE Administration Guaifenesin 1,200 mg 05/26/25 21:40 06/01/25 09:13 Guaifenesin 12 Hr 600 Mg Tabcr PO 1,200 mg Q12HR IRENE Administration Hydrocortisone Sodium Succinate 25 mg 05/31/25 18:00 06/01/25 05:37 Hydrocortisone Sodium Succinate 100 Mg/2 Ml Vial IV PUSH 25 mg Q12H IRENE Administration Azithromycin 500 mg/ Sodium 250 mls @ 250 mls/hr 05/30/25 10:00 05/31/25 10:53 Chloride IVPB 250 mls/hr Q24H IRENE Administration Ceftriaxone Sodium 1 gm/ 50 mls @ 100 mls/hr 05/31/25 10:00 05/31/25 10:12 Sodium Chloride IVPB 100 mls/hr Q24H IRENE Administration Amiodarone HCl/Dextrose 360 mg in 200 mls @ 33.333 mls/hr 05/30/25 20:48 06/01/25 09:37 Nexterone 360 Mg/D5w 200 Ml IV CONT 1 mg/min .Q6H IRENE 33.33 mls/hr 1 MG/MIN Administration Ipratropium [place] 0.5 mg 05/28/25 12:00 06/01/25 07:55 Ipratropium Br 0.02% Inh Soln 0.5 Mg/2.5 Ml Vial INHALATION 0.5 mg [id number] IRENE Administration Ketorolac Tromethamine 30 mg 05/30/25 10:25 05/31/25 21:34 Ketorolac 30 Mg/Ml Vial (*Bkc) IV PUSH 30 mg Q6H PRN Administration Pain Rated 4-6 Levothyroxine Sodium 75 mcg 05/27/25 06:30 05/31/25 10:02 Levothyroxine Sodium 75 Mcg Tablet PO 75 mcg DAILY@0630 IRENE Administration Lidocaine 1 patch 05/28/25 14:05 06/01/25 09:11 Lidocaine 5% Patch TRANSDERM 1 patch DAILY IRENE Administration Multivitamins/Minerals 1 tab 05/27/25 09:00 06/01/25 09:12 Multivitamins /C Lutein (Centrum Silver) Tablet *Bkc PO 1 tab DAILY IRENE Administration Ondansetron HCl 4 mg 05/26/25 21:08 Ondansetron Inj 4 Mg/2 Ml Vial IV PUSH Q6H PRN Nausea And Vomiting Pantoprazole Sodium 40 mg 05/27/25 09:00 06/01/25 09:14 Pantoprazole 40 Mg Tablet PO 40 mg QAM IRENE Administration Quetiapine Fumarate 100 mg 05/26/25 21:40 05/31/25 22:01 Quetiapine Fumarate 100 Mg Tablet PO 100 mg HS IRENE Administration Quetiapine Fumarate 50 mg 05/26/25 21:40 05/31/25 22:02 Quetiapine Fumarate 25 Mg Tablet PO 50 mg HS IRENE Administration Rivaroxaban 20 mg 05/30/25 17:00 05/31/25 17:22 Rivaroxaban 20 Mg Tablet PO 20 mg DAILY@1700 IRENE Administration Sodium Chloride 1 spray 05/29/25 13:08 05/29/25 19:46 Saline 0.65% Slim Soln 44 Ml Btl NASAL 1 spray Q6HR PRN Administration Congestion Vitamin D 125 mcg 05/27/25 09:00 06/01/25 09:13 Cholecalciferol (Vitamin D3) 125 Mcg (5,000 Units) Tablet PO 125 mcg DAILY IRENE Administration Radiology Results: ITS Impressions Chest CTA 05/26/25 18:29 IMPRESSION: 1. Extensive bilateral airspace disease, compatible with pneumonia, right greater than left. 2: Enlarged mediastinal and right hilar lymph nodes, likely reactive. Abdomen Ultrasound 05/27/25 09:25 IMPRESSION: 1. Hepatomegaly, with steatosis and/or diffuse hepatocellular disease. 2. Cirrhosis not excluded. Chest X-Ray 05/30/25 08:25 Impression: Interval progression Shoulder CT 05/30/25 11:01 IMPRESSION: 1. Polyarticular osteoarthritis. 2. Diffuse right lung disease, consistent with pneumonia. 3. Small right pleural effusion. Cervical Spine CT 05/30/25 11:04 IMPRESSION: 1. Severe cervical spondylosis, stable from 12/15/2024. 2. Anterior fusion procedure from C4 to C6. 3. Bilateral pneumonia. Labs Labs: Laboratory Results - last 24 hr 05/28/25 06/01/25 10:40 03:41 WBC 6.4 RBC 3.50 L Hgb 11.3 L Hct 36.0 L MCV 102.9 H MCH 32.3 MCHC 31.4 L RDW 14.3 Plt Count 280 MPV 9.6 Sodium 133 L Potassium 4.7 Chloride 101 Carbon Dioxide 25 Anion Gap 7 BUN 19 H Creatinine 0.94 Estim Creat Clear Calc 72 Estimated GFR 60 Glucose 89 Calcium 8.7 Magnesium 1.9 Total Bilirubin 0.5 AST 39 H ALT 40 H Alkaline Phosphatase 111 Total Protein 5.2 L Albumin 2.7 L Chlamy pneumoniae PCR Adenovirus (PCR) B. pertussis DNA (PCR) B.parapertussis DNA PCR Coronavirus OC43 (PCR) Coronavirus HKU1 (PCR) Coronavirus 229E (PCR) Coronavirus NL63 (PCR) Human Metapneumovir PCR Influenza A (H1) PCR Influ A (H1/09) PCR Influenza A (H3) PCR Influenza Type A (PCR) Influenza Type B (PCR) M. pneumoniae (PCR) Parainfluenza 1 (PCR) Parainfluenza 2 (PCR) Parainfluenza 3 (PCR) Parainfluenza 4 (PCR) RSV (PCR) Entero/Rhino (PCR) SARS-CoV-2 (PCR)
--- NOTE | 2025-06-01 09:56 | P.PNCA_ITS ---
Progress Note: A&P Assessment and Plan (1) Atrial fibrillation with rapid ventricular response: Code(s): I48.91 - Unspecified atrial fibrillation Status: Acute Assessment and Plan: Atrial fibrillation with rapid ventricular response, rates in the 120s to 140s. This is a new diagnosis in the setting of acute illness with pneumonia. Discussed this diagnosis with her including pathophysiology, management strategy is, and risks/complications. * Goal had been rate control, however, remains symptomatic with SOB with any activity and palpitations * She was shifted from metoprolol to dilitiazem reportedly because of a reaction to metoprolol, however patient states she did not have any adverse effects with metoprolol * Continue diltiazem 240mg daily * Will continue with amiodarone drip at this time * Plan will be MALLORY/CV in am given persistent symptomatic afib * She has a CHADS2 Vasc score of 2 (gender, hypertension) now on Xarelto 20 mg daily * Echo unremarkable (2) Hypertension: Code(s): I10 - Essential (primary) hypertension Status: Chronic Assessment and Plan: At goal. (3) Community acquired pneumonia: Code(s): J18.9 - Pneumonia, unspecified organism Status: Acute Assessment and Plan: Antibiotics and other management per hospitalist. Subjective Date/time seen: 06/01/25 09:56 Interval history: Patient seen for evaluation of AFib with RVR Patient complains of shortness of breath with mild activity Telemetry AFib RVR heart rate 101 110 Date of service 05/30/2025: She continues to have tachycardia and feels palpitations intermittently. No chest pain. Shortness of breath is improving. Date of service 05/31/2025: Heart rate improving on amiodarone but remains above goal. Shortness of breath improving. Feeling better overall. Date of service 06/01/2025: Patient is sitting up in chair. Feeling improved. Still has shortness of breath with minimal activity. No chest pain or pressure. No dizziness or palpitations. Review of Systems Review of Systems: All systems reviewed & are unremarkable except as noted in HPI and below Exam Const: General: comfortable, no acute distress, alert and awake Orientation/consciousness: patient oriented x3 HENMT: Head: normal to inspection Eyes: General: appearance normal, both eyes and all related structures Pupils: Equal, round and reactive pupils present Neck: Neck: normal visual inspection, supple and no JVD Carotids: normal carotid upstroke Resp: Effort & Inspection: normal respiratory effort Auscultation: dimi nished lung sounds Other: Conversational dyspnea Cardio: Rate: tachycardic Rhythm: abnormal rhythm irregularly irregular GI: Auscultation: normal bowel sounds Skin: General skin exam: normal color Neuro: General: patient oriented x3 Cranial nerves: Yes Equal, round and reactive pupils present Extrem: General: normal to inspection Psych: Appearance: grossly normal Mental Status: mental status grossly normal Objective Data Vital Signs Vital Signs: Vital Signs - 24 hr 05/31/25 10:00 05/31/25 11:02 05/31/25 12:00 Temperature 36.5 C Pulse Rate 110 H 127 H Respiratory Rate 20 Blood Pressure 120/84 Pulse Oximetry 99 97 Oxygen Delivery High Flow Nasal Cannula Oxygen Flow Rate 2 05/31/25 12:00 05/31/25 12:03 05/31/25 12:03 Temperature Pulse Rate 111 H 120 H 120 H Respiratory Rate 20 20 Blood Pressure Pulse Oximetry 91 Oxygen Delivery Nasal Cannula Oxygen Flow Rate 2 05/31/25 12:10 05/31/25 14:00 05/31/25 15:27 Temperature Pulse Rate 115 H 115 H 104 H Respiratory Rate 20 Blood Pressure 120/84 Pulse Oximetry Oxygen Delivery Oxygen Flow Rate 05/31/25 15:27 05/31/25 15:43 05/31/25 16:00 Temperature 36.4 C L Pulse Rate 104 H 110 H 113 H Respiratory Rate 20 Blood Pressure 120/84 124/83 Pulse Oximetry 91 Oxygen Delivery Oxygen Flow Rate 05/31/25 16:00 05/31/25 16:39 05/31/25 16:39 Temperature Pulse Rate 130 H 130 H Respiratory Rate 20 20 Blood Pressure Pulse Oximetry 92 96 Oxygen Delivery High Flow Nasal Cannula Nasal Cannula Oxygen Flow Rate 2 2 05/31/25 16:49 05/31/25 18:00 05/31/25 20:00 Temperature Pulse Rate 122 H 133 H 119 H Respiratory Rate 20 Blood Pressure 119/73 Pulse Oximetry Oxygen Delivery Oxygen Flow Rate 05/31/25 20:00 05/31/25 20:00 05/31/25 20:31 Temperature 36.4 C Pulse Rate 120 H 123 H Respiratory Rate 18 Blood Pressure 119/73 Pulse Oximetry 94 90 Oxygen Delivery Nasal Cannula Oxygen Flow Rate 2 05/31/25 20:36 05/31/25 20:43 05/31/25 20:47 Temperature Pulse Rate 111 H 111 H 117 H Respiratory Rate 20 20 20 Blood Pressure Pulse Oximetry 94 Oxygen Delivery Nasal Cannula Oxygen Flow Rate 2 05/31/25 22:00 05/31/25 22:00 05/31/25 23:57 Temperature 36.6 C Pulse Rate 121 H 110 H 115 H Respiratory Rate 18 Blood Pressure 124/78 123/83 Pulse Oximetry 90 Oxygen Delivery Oxygen Flow Rate 06/01/25 00:00 06/01/25 00:00 06/01/25 00:00 Temperature Pulse Rate 98 130 H Respiratory Rate Blood Pressure 123/83 Pulse Oximetry 95 Oxygen Delivery Nasal Cannula Oxygen Flow Rate 2 06/01/25 02:00 06/01/25 02:00 06/01/25 04:00 Temperature Pulse Rate 109 H 98 108 H Respiratory Rate Blood Pressure 120/80 128/74 Pulse Oximetry Oxygen Delivery Oxygen Flow Rate 06/01/25 04:00 06/01/25 04:00 06/01/25 04:12 Temperature Pulse Rate 117 H 110 H Respiratory Rate Blood Pressure 128/74 Pulse Oximetry 95 Oxygen Delivery Nasal Cannula Oxygen Flow Rate 2 06/01/25 04:38 06/01/25 06:00 06/01/25 07:32 Temperature 36.6 C 36.4 C Pulse Rate 108 H 102 H 107 H Respiratory Rate 20 18 Blood Pressure 112/70 113/84 Pulse Oximetry 93 93 Oxygen Delivery Oxygen Flow Rate 06/01/25 07:55 06/01/25 07:55 06/01/25 08:00 Temperature Pulse Rate 118 H 107 H Respiratory Rate 20 Blood Pressure 113/84 Pulse Oximetry 92 Oxygen Delivery Nasal Cannula Oxygen Flow Rate 2 06/01/25 08:13 06/01/25 09:37 06/01/25 09:37 Temperature Pulse Rate 113 H 114 H 114 H Respiratory Rate 20 Blood Pressure 127/99 H 127/99 H Pulse Oximetry Oxygen Delivery Oxygen Flow Rate Intake/Output Intake/Output: Intake & Output 05/29/25 05/30/25 05/31/25 06/01/25 23:59 23:59 23:59 23:59 Intake Total 3030 1803.3 2013.3 1620.6 Output Total 4238 198 3929 1800 Balance 1480 903.3 963.3 -179.4 Meds/Results Medications: Active Medications Generic Name Dose Route Start Last Admin Trade Name Freq PRN Reason Stop Dose Admin Acetaminophen 650 mg 05/26/25 18:40 05/27/25 09:59 Acetaminophen 325 Mg Tablet PO 650 mg Q4H PRN Administration Mild Pain (1-3) or Fever Hydrocodone Bitart/Acetaminophen 1 tab 05/27/25 20:59 05/31/25 11:01 Hydrocodone/Acetaminophen (*Crx) 5-325 Mg Tablet PO 1 tab Q6H PRN Administration Pain Rated 4-10 Amitriptyline HCl 150 mg 05/27/25 21:00 05/31/25 22:01 Amitriptyline Hcl 25 Mg Tablet PO 150 mg HS IRENE Administration Benzonatate 200 mg 05/28/25 14:03 Benzonatate 100 Mg Capsule PO TID PRN Cough Bupropion HCl 150 mg 05/26/25 21:15 05/31/25 22:01 Bupropion Hcl Xl (24 Hr) 150 Mg Tabcr PO 150 mg HS IRENE Administration Buspirone HCl 10 mg 05/26/25 21:20 06/01/25 09:12 Buspirone Hcl 10 Mg Tablet PO 10 mg BID IRENE Administration Calcium Citrate 2 tablet 05/27/25 09:00 06/01/25 09:12 Calcium Citrate 315 Mg/Vitamin D 6.25 Mcg (250 Units) Tab PO 2 tablet BID IRENE Administration Diazepam 5 mg 05/30/25 09:56 05/31/25 12:03 Diazepam Inj (*Crx) 10 Mg/2 Ml Syringe IV PUSH 5 mg Q8HR PRN Administration Muscle Spasm Diltiazem HCl 240 mg 05/30/25 09:00 06/01/25 09:12 Diltiazem Hcl Cd 120 Mg Cap.24hr PO 240 mg QAM IRENE Administration Diphenhydramine HCl 25 mg 05/29/25 13:09 Diphenhydramine Hcl Cap 25 Mg Capsule PO Q6H PRN Itching Furosemide 20 mg 05/29/25 09:00 06/01/25 09:12 Furosemide 20 Mg Tablet PO 20 mg DAILY IRENE Administration Gabapentin 800 mg 05/26/25 21:15 06/01/25 09:13 Gabapentin 400 Mg Capsule PO 800 mg Q12HR IRENE Administration Guaifenesin 1,200 mg 05/26/25 21:40 06/01/25 09:13 Guaifenesin 12 Hr 600 Mg Tabcr PO 1,200 mg Q12HR IRENE Administration Hydrocortisone Sodium Succinate 25 mg 06/01/25 09:45 Hydrocortisone Sodium Succinate 100 Mg/2 Ml Vial IV PUSH Q24H IRENE Azithromycin 500 mg/ Sodium 250 mls @ 250 mls/hr 05/30/25 10:00 05/31/25 10:53 Chloride IVPB 250 mls/hr Q24H IRENE Administration Ceftriaxone Sodium 1 gm/ 50 mls @ 100 mls/hr 05/31/25 10:00 05/31/25 10:12 Sodium Chloride IVPB 100 mls/hr Q24H IRENE Administration Amiodarone HCl/Dextrose 360 mg in 200 mls @ 33.333 mls/hr 05/30/25 20:48 09:37 Nexterone 360 Mg/D5w 200 Ml IV CONT 1 mg/min .Q6H IRENE 33.33 mls/hr 1 MG/MIN Administration Ipratropium [place] 0.5 mg 05/28/25 12:00 06/01/25 07:55 Ipratropium Br 0.02% Inh Soln 0.5 Mg/2.5 Ml Vial INHALATION 0.5 mg [id number] [facility] Administration Ketorolac Tromethamine 30 mg 05/30/25 10:25 05/31/25 21:34 Ketorolac 30 Mg/Ml Vial (*Bkc) IV PUSH 30 mg Q6H PRN Administration Pain Rated 4-6 Levothyroxine Sodium 75 mcg 05/27/25 06:30 05/31/25 10:02 Levothyroxine Sodium 75 Mcg Tablet PO 75 mcg DAILY@0630 [facility] Administration Lidocaine 1 patch 05/28/25 14:05 06/01/25 09:11 Lidocaine 5% Patch TRANSDERM 1 patch DAILY [facility] Administration Multivitamins/Minerals 1 tab 05/27/25 09:00 06/01/25 09:12 Multivitamins /C Lutein (Centrum Silver) Tablet *Bkc PO 1 tab DAILY IRENE Administration Ondansetron HCl 4 mg 05/26/25 21:08 Ondansetron Inj 4 Mg/2 Ml Vial IV PUSH Q6H PRN Nausea And Vomiting Pantoprazole Sodium 40 mg 05/27/25 09:00 06/01/25 09:14 Pantoprazole 40 Mg Tablet PO 40 mg QAM IRENE Administration Quetiapine Fumarate 100 mg 05/26/25 21:40 05/31/25 22:01 Quetiapine Fumarate 100 Mg Tablet PO 100 mg HS IRENE Administration Quetiapine Fumarate 50 mg 05/26/25 21:40 05/31/25 22:02 Quetiapine Fumarate 25 Mg Tablet PO 50 mg HS IRENE Administration Rivaroxaban 20 mg 05/30/25 17:00 05/31/25 17:22 Rivaroxaban 20 Mg Tablet PO 20 mg DAILY@1700 IRENE Administration Sodium Chloride 1 spray 05/29/25 13:08 05/29/25 19:46 Saline 0.65% Slim Soln 44 Ml Btl NASAL 1 spray Q6HR PRN Administration Congestion Vitamin D 125 mcg 05/27/25 09:00 06/01/25 09:13 Cholecalciferol (Vitamin D3) 125 Mcg (5,000 Units) Tablet PO 125 mcg DAILY IRENE Administration Radiology Results: ITS Impressions Chest CTA 05/26/25 18:29 IMPRESSION: 1. Extensive bilateral airspace disease, compatible with pneumonia, right greater than left. 2: Enlarged mediastinal and right hilar lymph nodes, likely reactive. Abdomen Ultrasound 05/27/25 09:25 IMPRESSION: 1. Hepatomegaly, with steatosis and/or diffuse hepatocellular disease. 2. Cirrhosis not excluded. Chest X-Ray 05/30/25 08:25 Impression: Interval progression Shoulder CT 05/30/25 11:01 IMPRESSION: 1. Polyarticular osteoarthritis. 2. Diffuse right lung disease, consistent with pneumonia. 3. Small right pleural effusion. Cervical Spine CT 05/30/25 11:04 IMPRESSION: 1. Severe cervical spondylosis, stable from 12/15/2024. 2. Anterior fusion procedure from C4 to C6. 3. Bilateral pneumonia. Labs Labs: Laboratory Results - last 24 hr 05/28/25 06/01/25 10:40 03:41 WBC 6.4 RBC 3.50 L Hgb 11.3 L Hct 36.0 L MCV 102.9 H MCH 32.3 MCHC 31.4 L RDW 14.3 Plt Count 280 MPV 9.6 Sodium 133 L Potassium 4.7 Chloride 101 Carbon Dioxide 25 Anion Gap 7 BUN 19 H Creatinine 0.94 Estim Creat Clear Calc 72 Estimated GFR 60 Glucose 89 Calcium 8.7 Magnesium 1.9 Total Bilirubin 0.5 AST 39 H ALT 40 H Alkaline Phosphatase 111 Total Protein 5.2 L Albumin 2.7 L Chlamy pneumoniae PCR Adenovirus (PCR) B. pertussis DNA (PCR) B.parapertussis DNA PCR Coronavirus OC43 (PCR) Coronavirus HKU1 (PCR) Coronavirus 229E (PCR) Coronavirus NL63 (PCR) Human Metapneumovir PCR Influenza A (H1) PCR Influ A (H1/09) PCR Influenza A (H3) PCR Influenza Type A (PCR) Influenza Type B (PCR) M. pneumoniae (PCR) Parainfluenza 1 (PCR) Parainfluenza 2 (PCR) Parainfluenza 3 (PCR) Parainfluenza 4 (PCR) RSV (PCR) Entero/Rhino (PCR) SARS-CoV-2 (PCR)
[2025-06-01] MEDS: AZITHROMYCIN IV 500 MG in SODIUM CHLORIDE 0.9% IV 250 ML IVPB (11:05)
[2025-06-01] MEDS: cefTRIAXone 1 GM in SODIUM CHLORIDE 0.9% IV 50 ML 100 ML IVPB (11:05)
--- NOTE | 2025-06-01 15:16 | PC.NURSE ---
On 06/01/25, the student, Mony, provided care and completed [facility] documentation on this patient. I have reviewed the student's documentation and agree with the findings.
--- NOTE | 2025-06-01 15:49 | PCNWS ---
Weekly nutritional screen. Patient is tolerating current Heart healthy diet with adequate intake, 100%. No weight loss reported. No nutritional needs at this time.
[2025-06-01] MEDS: RIVAROXABAN 20 MG TABLET PO (16:46)
--- NOTE | 2025-06-01 18:30 | PC.NURSE ---
On 06/01/25, the INSULATION MANAGER, [Miller Hardy ], provided care and completed [facility] documentation on this patient. I have reviewed the INSULATION MANAGER's documentation and agree with the findings.
--- NOTE | 2025-06-01 19:19 | P.PNIM_ITS ---
Progress Note: A&P Assessment and Plan (1) Acute respiratory failure with hypoxia: Code(s): J96.01 - Acute respiratory failure with hypoxia Status: Acute Assessment and Plan: Patient on admission requiring 4 L supplemental oxygen to maintain 92% patient does not wear oxygen at home likely secondary to her underlying pneumonia as well AFib with RVR. * Will continue to wean oxygen as tolerated * CTA chest with no PE * Nebulizers scheduled * High flow titrated down to 3 L * patient may need discharged with oxygen, will need to get ambulatory oximetry when patient is nearing discharge (2) Community acquired pneumonia: Code(s): J18.9 - Pneumonia, unspecified organism Status: Acute Assessment and Plan: CT showing bilateral pneumonia and elevated wbc's with acute respiratory failure with hypoxia. Patient with no HX of COPD, ILD or recurrent PNA. Had Worsening respiratory status overnight currently on High flow 30/65 FIO2. 05/30: CXR with interval progression of pneumonia but clinically improving. MRSA negative viral panel pending * IV Rocephin and azithromycin IV daily * Supplemental oxygen titrated down to 3 L * Ipratropium 0.5 * Blood cultures NGTD * Obtain sputum culture NGTD * Incentive spirometer * Guaifenesin 1200 mg BID ordered * Pulmicort * Legionella and strep urine pending * consult pulmonology appreciate any further recommendations * Hydrocortisone IVP 50mg Q6hr for severe PNA * flutter valve and EZPAP (3) Atrial fibrillation with rapid ventricular response: Code(s): I48.91 - Unspecified atrial fibrillation Status: Acute Assessment and Plan: Patient with new onset AFib RVR rates in the 140s no previous history. Patient reports she has even had a Holter monitor in the past that showed no atrial fibrillation likely secondary to patient's infection and hypoxia. Patient received 1 time dose IVP metoprolol, remained in low 120s gave a single dose 25 mg Cardizem IVP with improvement but had not converted. Patient transition from Cardizem drip to oral Cardizem metoprolol has been discontinued after reports of reaction to metoprolol from patient rates in the low 100 then back into the 140's increased to 240mg daily remained uncontrolled. Cardiology giving 1x dose digoxin rate still uncontrolled switched to amio gtt with potentially need for cardioversion. * Echocardiogram: LVEF 65-70 % AFIB * Continue amiodarone drip for another day per cardiology * Increased Xarelto back to 20mg * Possible cardioversion on Friday if no improvement * patient still with high heart rate with any activity or ambulation (4) Transaminitis: Code(s): R74.01 - Elevation of levels of liver transaminase levels Status: Acute Assessment and Plan: Spoke with patient regarding her elevated liver enzymes which time she did hurt she has been taking a of Tylenol due to her to the pain could be underlying sebastian but also showed some fatty liver disease and cannot rule cirrhosis on the ultrasound patient reports she does not drink alcohol * AST is 185 and ALT is 243. In comparison in November the AST was 31 ALT was 47. Improving with fluids * US hepatomegaly with steatosis or diffuse hepatocellular disease unable to exclude cirrhosis * Hepatitis panel negative * Lipid panel pending * Trend with labs * Recommended discontinuation Tylenol or reduce amount of daily intake (5) Anxiety: Code(s): F41.9 - Anxiety disorder, unspecified Status: Chronic Assessment and Plan: * Continue home medications of Wellbutrin, BuSpar, Seroquel (6) Hypertension: Code(s): I10 - Essential (primary) hypertension Status: Chronic Assessment and Plan: Soft BP 's * was on cardizem with soft BP's carvedilol D/C * BP stable today at 118/88 * Currently patient on no hypertensive medication on amnio gtt for rate control * would monitor see necessary to add any hypertensive medications (7) GERD (gastroesophageal reflux disease): Code(s): K21.9 - Gastro-esophageal reflux disease without esophagitis Status: Chronic Assessment and Plan: * Patient uses omeprazole at home switch to pantoprazole which is formulary (8) Hypothyroidism: Code(s): E03.9 - Hypothyroidism, unspecified Status: Chronic Assessment and Plan: * Continue levothyroxine * TSH WNL (9) Shoulder pain, right: Code(s): M25.511 - Pain in right shoulder Status: Acute Assessment and Plan: Patient with 1010 right shoulder pain has HX of cervical surgery in Aug. * CT cervical/shoulder pending * Lidocaine patch * pain management with oral and IV narcotics * Toradol * Valium for muscle spasms Plan Code status: Full code per patient DVT prophylaxis: Lovenox Stress ulcer prophylaxis: Protonix 40 daily PT/OT notes: Ambulatory Disposition: Plan to return home at discharge when medically stable. Subjective Date/time seen: 06/01/25 14:30 Interval history: Patient sitting up in chair, in no acute distress. O2 by NC. Patient reports she ambulated with PT today and her heart rate increased and she became hypoxic without her oxygen on. Patient being followed by cardiology and pulmonology. Plan for repeat CXR tomorrow AM. Cardiology continuing amiodarone drip for another day. Plan for possible cardioversion on Friday if patient does not convert. Review of Systems Review of Systems: All systems reviewed & are unremarkable except as noted in HPI and below Exam Const: General: comfortable and no acute distress Other: Obese female HENMT: Face/Nose/Sinus: Normal nares present Mouth: Yes moist mucous membranes Eyes: General: appearance normal, both eyes and all related structures Neck: Neck: supple and no JVD Resp: Effort & Inspection: able to speak in complete sentences, Actively coughing and tachypneic Auscultation: crackles (Course) bilateral in the lower lung lynn (Right greater than left) and diminished lung sounds Cardio: Rate: tachycardic Heart sounds: no gallops, no murmurs and no rubs Other: Irregular GI: Inspection: non-distended Auscultation: normal bowel sounds Skin: General skin exam: normal color, no rashes or lesions noted and No lesion Lesions: no lesions noted Wounds: no wounds Neuro: Speech: normal speech Motor exam (neuro): 5/5 motor strength present throughout and Normal motor muscle tone present throughout Other: No focal deficits Extrem: General: normal to inspection and no edema Psych: Mental Status: mental status grossly normal Affect: normal affect Objective Data Vital Signs Vital Signs: Vital Signs - 24 hr 05/31/25 20:00 05/31/25 20:00 05/31/25 20:00 Temperature Pulse Rate 119 H 120 H Respiratory Rate Blood Pressure 119/73 Pulse Oximetry 94 Oxygen Delivery Nasal Cannula Oxygen Flow Rate 2 05/31/25 20:31 05/31/25 20:36 05/31/25 20:43 Temperature 97.6 F Pulse Rate 123 H 111 H 111 H Respiratory Rate 18 20 20 Blood Pressure 119/73 Pulse Oximetry 90 94 Oxygen Delivery Nasal Cannula Oxygen Flow Rate 2 05/31/25 20:47 05/31/25 22:00 05/31/25 22:00 Temperature Pulse Rate 117 H 121 H 110 H Respiratory Rate 20 Blood Pressure 124/78 Pulse Oximetry Oxygen Delivery Oxygen Flow Rate 05/31/25 23:57 06/01/25 00:00 06/01/25 00:00 Temperature 97.8 F Pulse Rate 115 H 98 Respiratory Rate 18 Blood Pressure 123/83 123/83 Pulse Oximetry 90 95 Oxygen Delivery Nasal Cannula Oxygen Flow Rate 2 06/01/25 00:00 06/01/25 02:00 06/01/25 02:00 Temperature Pulse Rate 130 H 109 H 98 Respiratory Rate Blood Pressure 120/80 Pulse Oximetry Oxygen Delivery Oxygen Flow Rate 06/01/25 04:00 06/01/25 04:00 06/01/25 04:00 Temperature Pulse Rate 108 H 117 H Respiratory Rate Blood Pressure 128/74 Pulse Oximetry 95 Oxygen Delivery Nasal Cannula Oxygen Flow Rate 2 06/01/25 04:12 06/01/25 04:38 06/01/25 06:00 Temperature 97.8 F Pulse Rate 110 H 108 H 102 H Respiratory Rate 20 Blood Pressure 128/74 112/70 Pulse Oximetry 93 Oxygen Delivery Oxygen Flow Rate 06/01/25 07:32 06/01/25 07:55 06/01/25 07:55 Temperature 97.6 F Pulse Rate 107 H 118 H Respiratory Rate 18 20 Blood Pressure 113/84 Pulse Oximetry 93 92 Oxygen Delivery Nasal Cannula Oxygen Flow Rate 2 06/01/25 08:00 06/01/25 08:00 06/01/25 08:00 Temperature Pulse Rate 107 H 107 H 107 H Respiratory Rate 18 Blood Pressure 113/84 Pulse Oximetry 93 Oxygen Delivery Nasal Cannula Oxygen Flow Rate 2 06/01/25 08:13 06/01/25 09:12 06/01/25 09:37 Temperature Pulse Rate 113 H 114 H Respiratory Rate 20 Blood Pressure 127/99 H Pulse Oximetry 92 Oxygen Delivery Nasal Cannula Oxygen Flow Rate 1 06/01/25 09:37 06/01/25 10:00 06/01/25 10:00 Temperature Pulse Rate 114 H 115 H 102 H Respiratory Rate Blood Pressure 127/99 H 121/78 Pulse Oximetry Oxygen Delivery Oxygen Flow Rate 06/01/25 10:13 06/01/25 11:02 06/01/25 11:10 Temperature 97.7 F Pulse Rate 102 H 106 H 112 H Respiratory Rate 20 20 20 Blood Pressure 121/78 Pulse Oximetry 87 L Oxygen Delivery Oxygen Flow Rate 06/01/25 11:39 06/01/25 12:00 06/01/25 12:00 Temperature 97.9 F Pulse Rate 119 H 107 H 123 H Respiratory Rate 20 18 Blood Pressure 116/62 Pulse Oximetry 95 93 Oxygen Delivery Nasal Cannula Oxygen Flow Rate 1 06/01/25 12:00 06/01/25 13:06 06/01/25 14:00 Temperature Pulse Rate 119 H 118 H Respiratory Rate Blood Pressure 116/62 104/66 Pulse Oximetry Oxygen Delivery Nasal Cannula Oxygen Flow Rate 2 06/01/25 14:00 06/01/25 14:43 06/01/25 15:04 Temperature 97.9 F Pulse Rate 118 H 121 H Respiratory Rate 18 Blood Pressure 101/69 Pulse Oximetry 95 Oxygen Delivery Nasal Cannula Oxygen Flow Rate 2 06/01/25 15:38 06/01/25 15:48 06/01/25 16:00 Temperature Pulse Rate 118 H 118 H 110 H Respiratory Rate 20 20 Blood Pressure 106/70 Pulse Oximetry Oxygen Delivery Oxygen Flow Rate 06/01/25 16:00 06/01/25 16:00 06/01/25 16:00 Temperature 97.8 F Pulse Rate 110 H 118 H 118 H Respiratory Rate 20 20 Blood Pressure 106/70 106/70 Pulse Oximetry 93 93 Oxygen Delivery Nasal Cannula Oxygen Flow Rate 1 06/01/25 16:00 06/01/25 18:00 06/01/25 18:00 Temperature Pulse Rate 122 H 128 H 128 H Respiratory Rate Blood Pressure 107/70 Pulse Oximetry Oxygen Delivery Oxygen Flow Rate Intake/Output Intake/Output: Intake & Output 05/29/25 05/30/25 05/31/25 06/01/25 23:59 23:59 23:59 23:59 Intake Total 3030 1803.3 2313.3 2367.3 Output Total 2109 026 0333 2600 Balance 1480 903.3 1263.3 -232.7 Meds/Results Medications: Active Medications Generic Name Dose Route Start Last Admin Trade Name Freq PRN Reason Stop Dose Admin Acetaminophen 650 mg 05/26/25 18:40 05/27/25 09:59 Acetaminophen 325 Mg Tablet PO 650 mg Q4H PRN Administration Mild Pain (1-3) or Fever Hydrocodone Bitart/Acetaminophen 1 tab 05/27/25 20:59 05/31/25 11:01 Hydrocodone/Acetaminophen (*Crx) 5-325 Mg Tablet PO 1 tab Q6H PRN Administration Pain Rated 4-10 Amitriptyline HCl 150 mg 05/27/25 21:00 05/31/25 22:01 Amitriptyline Hcl 25 Mg Tablet PO 150 mg HS IRENE Administration Azithromycin 500 mg 06/02/25 09:00 Azithromycin 500 Mg Tablet PO 06/08/25 09:01 DAILY IRENE Benzonatate 200 mg 05/28/25 14:03 Benzonatate 100 Mg Capsule PO TID PRN Cough Bupropion HCl 150 mg 05/26/25 21:15 05/31/25 22:01 Bupropion Hcl Xl (24 Hr) 150 Mg Tabcr PO 150 mg HS IRENE Administration Buspirone HCl 10 mg 05/26/25 21:20 06/01/25 16:46 Buspirone Hcl 10 Mg Tablet PO 10 mg BID IRENE Administration Calcium Citrate 2 tablet 05/27/25 09:00 06/01/25 16:46 Calcium Citrate 315 Mg/Vitamin D 6.25 Mcg (250 Units) Tab PO 2 tablet BID IRENE Administration Diazepam 5 mg 05/30/25 09:56 05/31/25 12:03 Diazepam Inj (*Crx) 10 Mg/2 Ml Syringe IV PUSH 5 mg Q8HR PRN Administration Muscle Spasm Diltiazem HCl 240 mg 05/30/25 09:00 06/01/25 09:12 Diltiazem Hcl Cd 120 Mg Cap.24hr PO 240 mg QAM IRENE Administration Diphenhydramine HCl 25 mg 05/29/25 13:09 Diphenhydramine Hcl Cap 25 Mg Capsule PO Q6H PRN Itching Furosemide 20 mg 05/29/25 09:00 06/01/25 09:12 Furosemide 20 Mg Tablet PO 20 mg DAILY IRENE Administration Gabapentin 800 mg 05/26/25 21:15 06/01/25 09:13 Gabapentin 400 Mg Capsule PO 800 mg Q12HR IRENE Administration Guaifenesin 1,200 mg 05/26/25 21:40 06/01/25 09:13 Guaifenesin 12 Hr 600 Mg Tabcr PO 1,200 mg Q12HR IRENE Administration Hydrocortisone Sodium Succinate 25 mg 06/01/25 09:45 06/01/25 11:04 Hydrocortisone Sodium Succinate 100 Mg/2 Ml Vial IV PUSH 25 mg Q24H IRENE Administration Ceftriaxone Sodium 1 gm/ 50 mls @ 100 mls/hr 05/31/25 10:00 06/01/25 11:05 Sodium Chloride IVPB 100 mls/hr Q24H IRENE Administration Amiodarone HCl/Dextrose 360 mg in 200 mls @ 33.333 mls/hr 05/30/25 20:48 06/01/25 18:00 Nexterone 360 Mg/D5w 200 Ml IV CONT 1 mg/min .Q6H IRENE 33.33 mls/hr 1 MG/MIN Infusion Ipratropium [place] 0.5 mg 05/28/25 12:00 06/01/25 15:37 Ipratropium Br 0.02% Inh Soln 0.5 Mg/2.5 Ml Vial INHALATION 0.5 mg [id number] IRENE Administration Ketorolac Tromethamine 30 mg 05/30/25 10:25 05/31/25 21:34 Ketorolac 30 Mg/Ml Vial (*Bk) IV PUSH 30 mg Q6H PRN Administration Pain Rated 4-6 Levothyroxine Sodium 75 mcg 05/27/25 06:30 05/31/25 10:02 Levothyroxine Sodium 75 Mcg Tablet PO 75 mcg DAILY@0630 IRENE Administration Lidocaine 1 patch 05/28/25 14:05 06/01/25 09:11 Lidocaine 5% Patch TRANSDERM 1 patch DAILY IRENE Administration Multivitamins/Minerals 1 tab 05/27/25 09:00 06/01/25 09:12 Multivitamins /C Lutein (Centrum Silver) Tablet *Bkc PO 1 tab DAILY IRENE Administration Ondansetron HCl 4 mg 05/26/25 21:08 Ondansetron Inj 4 Mg/2 Ml Vial IV PUSH Q6H PRN Nausea And Vomiting Pantoprazole Sodium 40 mg 05/27/25 09:00 06/01/25 09:14 Pantoprazole 40 Mg Tablet PO 40 mg QAM IRENE Administration Quetiapine Fumarate 100 mg 05/26/25 21:40 05/31/25 22:01 Quetiapine Fumarate 100 Mg Tablet PO 100 mg HS IRENE Administration Quetiapine Fumarate 50 mg 05/26/25 21:40 05/31/25 22:02 Quetiapine Fumarate 25 Mg Tablet PO 50 mg HS IRENE Administration Rivaroxaban 20 mg 05/30/25 17:00 06/01/25 16:46 Rivaroxaban 20 Mg Tablet PO 20 mg DAILY@1700 IRENE Administration Sodium Chloride 1 spray 05/29/25 13:08 05/29/25 19:46 Saline 0.65% Slim Soln 44 Ml Btl NASAL 1 spray Q6HR PRN Administration Congestion Vitamin D 125 mcg 05/27/25 09:00 06/01/25 09:13 Cholecalciferol (Vitamin D3) 125 Mcg (5,000 Units) Tablet PO 125 mcg DAILY IRENE Administration Radiology Results: ITS Impressions Chest CTA 05/26/25 18:29 IMPRESSION: 1. Extensive bilateral airspace disease, compatible with pneumonia, right greater than left. 2: Enlarged mediastinal and right hilar lymph nodes, likely reactive. Abdomen Ultrasound 05/27/25 09:25 IMPRESSION: 1. Hepatomegaly, with steatosis and/or diffuse hepatocellular disease. 2. Cirrhosis not excluded. Chest X-Ray 05/30/25 08:25 Impression: Interval progression Shoulder CT 05/30/25 11:01 IMPRESSION: 1. Polyarticular osteoarthritis. 2. Diffuse right lung disease, consistent with pneumonia. 3. Small right pleural effusion. Cervical Spine CT 05/30/25 11:04 IMPRESSION: 1. Severe cervical spondylosis, stable from 12/15/2024. 2. Anterior fusion procedure from C4 to C6. 3. Bilateral pneumonia. Labs Labs: Laboratory Results - last 24 hr 06/01/25 03:41 WBC 6.4 RBC 3.50 L Hgb 11.3 L Hct 36.0 L MCV 102.9 H MCH 32.3 MCHC 31.4 L RDW 14.3 Plt Count 280 MPV 9.6 Sodium 133 L Potassium 4.7 Chloride 101 Carbon Dioxide 25 Anion Gap 7 BUN 19 H Creatinine 0.94 Estim Creat Clear Calc 72 Estimated GFR 60 Glucose 89 Calcium 8.7 Magnesium 1.9 Total Bilirubin 0.5 AST 39 H ALT 40 H Alkaline Phosphatase 111 Total Protein 5.2 L Albumin 2.7 L Quality VTE Prophylaxis VTE prophylaxis: pharmacologic ordered
[2025-06-01] MEDS: buPROPion HCL XL (24 HR) 150 MG TABCR PO (22:06)
[2025-06-01] MEDS: AMITRIPTYLINE HCL 25 MG TABLET 150 MG PO (22:07)
[2025-06-01] MEDS: KETOROLAC 30 MG/ML VIAL (*BKC) IV PUSH (22:08)
[2025-06-02] VITALS (30 sets, daily range): BP systolic 97–121; BP diastolic 49–84; PULSE 86–122; RESP 18–20; TEMP 36.4–36.9; O2SAT 90–98
[2025-06-02 07:10] LABS: Hematocrit 38.2 % (37.0-47.0); Hemoglobin 12.1 g/dL (12.0-15.0); Mean Corpuscular HGB Conc 31.7 g/dl (32-36); Mean Corpuscular Hemoglobin 32.4 pg (26-34); Mean Corpuscular Volume 102.1 fl (80-100); Platelet Count Result 302 k/mm3 (150-375); Red Blood Count 3.74 M/mm3 (4.2-5.4); White Blood Count 6.8 K/mm3 (4.5-10.0)
[2025-06-02] MEDS: IPRATROPIUM BR 0.02% INH SOLN 0.5 MG/2.5 ML VIAL INHALATION (07:14)
[2025-06-02 07:29] LABS: Alanine Aminotransferase 35 U/L (6-35); Albumin Level 3.0 g/dL (3.5-5.1); Alkaline Phosphatase 126 U/L (38-126); Anion Gap 6 mmol/L (4-12); Aspartate Amino Transferase 25 U/L (14-36); Bilirubin,Total 0.2 mg/dL (0.2-1.3); Blood Urea Nitrogen 18 mg/dL (7-17); Calcium 8.7 mg/dL (8.4-10.2); Carbon Dioxide 32 mmol/L (22-30); Chloride 99 mmol/L (98-107); Estimated CRCL calculation 68 ml/min; Estimated Glomerular Filt Rate 56; Glucose 92 mg/dL (65-110); Magnesium 2.0 mg/dL (1.6-2.3); Potassium 3.8 mmol/L (3.4-5.0); Sodium 137 mmol/L (137-145); Total Protein 5.6 g/dL (6.3-8.2)
--- NOTE | 2025-06-02 08:43 | PM.PNCARD ---
Progress Note: A&P Assessment and Plan (1) Atrial fibrillation with rapid ventricular response: Code(s): I48.91 - Unspecified atrial fibrillation Status: Acute Assessment and Plan: Atrial fibrillation with rapid ventricular response, rates in the 120s to 140s. This is a new diagnosis in the setting of acute illness with pneumonia. Discussed this diagnosis with her including pathophysiology, management strategy is, and risks/complications. Goal had been rate control, however, remains symptomatic with SOB with any activity and palpitations She was shifted from metoprolol to dilitiazem reportedly because of a reaction to metoprolol, however patient states she did not have any adverse effects with metoprolol Continue diltiazem 240mg daily Will continue with amiodarone drip at this time Plan will be MALLORY/CV in am given persistent symptomatic afib She has a CHADS2 Vasc score of 2 (gender, hypertension) now on Xarelto 20 mg daily Echo unremarkable Plan unchanged. Due to anesthesia availability case is planned for am tomorrow. Patient aware and agreeable (2) Hypertension: Code(s): I10 - Essential (primary) hypertension Status: Chronic Assessment and Plan: At goal. (3) Community acquired pneumonia: Code(s): J18.9 - Pneumonia, unspecified organism Status: Acute Assessment and Plan: Antibiotics and other management per hospitalist. Subjective Date/time seen: 06/02/25 08:43 Interval history: Patient seen for evaluation of AFib with RVR Patient complains of shortness of breath with mild activity Telemetry AFib RVR heart rate 101 110 Date of service 05/30/2025: She continues to have tachycardia and feels palpitations intermittently. No chest pain. Shortness of breath is improving. Date of service 05/31/2025: Heart rate improving on amiodarone but remains above goal. Shortness of breath improving. Feeling better overall. Date of service 06/01/2025: Patient is sitting up in chair. Feeling improved. Still has shortness of breath with minimal activity. No chest pain or pressure. No dizziness or palpitations. Date of service 06/02/25: Patient is sitting up in bed. She states she is overall feeling improved. Her SOB has lessened. No chest pain or pressure. Denies any palpitations at this time. She continues to have elevated HR with minimal activity. Review of Systems Review of Systems: All systems reviewed & are unremarkable except as noted in HPI and below Exam Narrative: General: Alert and oriented. NAD Respiratory: decreased in bases CV: irreg irreg GI: abd round non-tender Ext: trace bilateral LE edema Objective Data Vital Signs Vital Signs: Vital Signs - 24 hr 06/01/25 09:12 06/01/25 09:37 06/01/25 09:37 Temperature Pulse Rate 114 H 114 H Respiratory Rate Blood Pressure 127/99 H 127/99 H Pulse Oximetry 92 Oxygen Delivery Nasal Cannula Oxygen Flow Rate 1 Fraction of Inspired Oxygen 06/01/25 10:00 06/01/25 10:00 06/01/25 10:13 Temperature 36.5 C Pulse Rate 115 H 102 H 102 H Respiratory Rate 20 Blood Pressure 121/78 121/78 Pulse Oximetry 87 L Oxygen Delivery Oxygen Flow Rate Fraction of Inspired Oxygen 06/01/25 11:02 06/01/25 11:10 06/01/25 11:39 Temperature 36.6 C Pulse Rate 106 H 112 H 119 H Respiratory Rate 20 20 20 Blood Pressure 116/62 Pulse Oximetry 95 Oxygen Delivery Oxygen Flow Rate Fraction of Inspired Oxygen 06/01/25 12:00 06/01/25 12:00 06/01/25 12:00 Temperature Pulse Rate 107 H 123 H 119 H Respiratory Rate 18 Blood Pressure 116/62 Pulse Oximetry 93 Oxygen Delivery Nasal Cannula Oxygen Flow Rate 1 Fraction of Inspired Oxygen 06/01/25 13:06 06/01/25 14:00 06/01/25 14:00 Temperature Pulse Rate 118 H 118 H Respiratory Rate Blood Pressure 104/66 Pulse Oximetry Oxygen Delivery Nasal Cannula Oxygen Flow Rate 2 Fraction of Inspired Oxygen 06/01/25 14:43 06/01/25 15:04 06/01/25 15:38 Temperature 36.6 C Pulse Rate 121 H 118 H Respiratory Rate 18 20 Blood Pressure 101/69 Pulse Oximetry 95 Oxygen Delivery Nasal Cannula Oxygen Flow Rate 2 Fraction of Inspired Oxygen 06/01/25 15:48 06/01/25 16:00 06/01/25 16:00 Temperature Pulse Rate 118 H 110 H 110 H Respiratory Rate 20 Blood Pressure 106/70 106/70 Pulse Oximetry Oxygen Delivery Oxygen Flow Rate Fraction of Inspired Oxygen 06/01/25 16:00 06/01/25 16:00 06/01/25 16:00 Temperature 36.6 C Pulse Rate 118 H 118 H 122 H Respiratory Rate 20 20 Blood Pressure 106/70 Pulse Oximetry 93 93 Oxygen Delivery Nasal Cannula Oxygen Flow Rate 1 Fraction of Inspired Oxygen 06/01/25 18:00 06/01/25 18:00 06/01/25 19:39 Temperature Pulse Rate 128 H 128 H 124 H Respiratory Rate 20 Blood Pressure 107/70 Pulse Oximetry Oxygen Delivery Oxygen Flow Rate Fraction of Inspired Oxygen 06/01/25 19:41 06/01/25 19:57 06/01/25 20:00 Temperature Pulse Rate 124 H 115 H 133 H Respiratory Rate 20 20 20 Blood Pressure Pulse Oximetry 98 91 Oxygen Delivery Nasal Cannula Nasal Cannula Oxygen Flow Rate 3 3 Fraction of Inspired Oxygen 32 06/01/25 20:00 06/01/25 20:00 06/01/25 20:26 Temperature 36.4 C Pulse Rate 123 H 119 H 123 H Respiratory Rate 18 Blood Pressure 105/60 105/60 Pulse Oximetry 93 Oxygen Delivery Oxygen Flow Rate Fraction of Inspired Oxygen 06/01/25 22:00 06/01/25 22:00 06/01/25 22:04 Temperature Pulse Rate 140 H 117 H Respiratory Rate Blood Pressure 108/62 Pulse Oximetry 97 Oxygen Delivery Nasal Cannula Oxygen Flow Rate 2 Fraction of Inspired Oxygen 28 06/01/25 22:06 06/01/25 23:10 06/01/25 23:12 Temperature 36.4 C Pulse Rate 135 H 110 H 102 H Respiratory Rate 20 Blood Pressure 108/62 107/52 L Pulse Oximetry 95 95 Oxygen Delivery Nasal Cannula Oxygen Flow Rate 2 Fraction of Inspired Oxygen 06/02/25 00:00 06/02/25 00:00 06/02/25 02:00 Temperature Pulse Rate 119 H 109 H 105 H Respiratory Rate Blood Pressure 107/52 L Pulse Oximetry Oxygen Delivery Oxygen Flow Rate Fraction of Inspired Oxygen 06/02/25 02:00 06/02/25 04:00 06/02/25 04:00 Temperature Pulse Rate 94 95 108 H Respiratory Rate Blood Pressure 110/68 Pulse Oximetry 92 Oxygen Delivery Nasal Cannula Oxygen Flow Rate 2 Fraction of Inspired Oxygen 06/02/25 04:06 06/02/25 04:06 06/02/25 06:00 Temperature Pulse Rate 89 109 H 99 Respiratory Rate Blood Pressure 118/64 118/64 Pulse Oximetry Oxygen Delivery Oxygen Flow Rate Fraction of Inspired Oxygen 06/02/25 06:01 06/02/25 06:20 06/02/25 07:14 Temperature 36.4 C Pulse Rate 95 96 110 H Respiratory Rate 20 20 Blood Pressure 104/63 115/59 L Pulse Oximetry 91 Oxygen Delivery Oxygen Flow Rate Fraction of Inspired Oxygen 06/02/25 07:17 06/02/25 07:21 06/02/25 07:46 Temperature 36.4 C Pulse Rate 110 H 100 102 H Respiratory Rate 20 20 Blood Pressure 104/60 Pulse Oximetry 90 94 Oxygen Delivery Nasal Cannula Oxygen Flow Rate 2 Fraction of Inspired Oxygen Intake/Output Intake/Output: Intake & Output 05/30/25 05/31/25 06/01/25 06/02/25 23:59 23:59 23:59 23:59 Intake Total 1803.3 2313.3 2500.6 713.9 Output Total 900 1050 2600 600 Balance 903.3 1263.3 -99.4 113.9 Meds/Results Medications: Active Medications Generic Name Dose Route Start Last Admin Trade Name Freq PRN Reason Stop Dose Admin Acetaminophen 650 mg 05/26/25 18:40 05/27/25 09:59 Acetaminophen 325 Mg Tablet PO 650 mg Q4H PRN Administration Mild Pain (1-3) or Fever Hydrocodone Bitart/Acetaminophen 1 tab 05/27/25 20:59 05/31/25 11:01 Hydrocodone/Acetaminophen (*Crx) 5-325 Mg Tablet PO 1 tab Q6H PRN Administration Pain Rated 4-10 Amitriptyline HCl 150 mg 05/27/25 21:00 06/01/25 22:07 Amitriptyline Hcl 25 Mg Tablet PO 150 mg HS IRENE Administration Azithromycin 500 mg 06/02/25 09:00 Azithromycin 500 Mg Tablet PO 06/08/25 09:01 DAILY IRENE Benzonatate 200 mg 05/28/25 14:03 Benzonatate 100 Mg Capsule PO TID PRN Cough Bupropion HCl 150 mg 05/26/25 21:15 06/01/25 22:06 Bupropion Hcl Xl (24 Hr) 150 Mg Tabcr PO 150 mg HS IRENE Administration Buspirone HCl 10 mg 05/26/25 21:20 06/01/25 16:46 Buspirone Hcl 10 Mg Tablet PO 10 mg BID IRENE Administration Calcium Citrate 2 tablet 05/27/25 09:00 06/01/25 16:46 Calcium Citrate 315 Mg/Vitamin D 6.25 Mcg (250 Units) Tab PO 2 tablet BID IRENE Administration Diazepam 5 mg 05/30/25 09:56 05/31/25 12:03 Diazepam Inj (*Crx) 10 Mg/2 Ml Syringe IV PUSH 5 mg Q8HR PRN Administration Muscle Spasm Diltiazem HCl 240 mg 05/30/25 09:00 06/01/25 09:12 Diltiazem Hcl Cd 120 Mg Cap.24hr PO 240 mg QAM IRENE Administration Diphenhydramine HCl 25 mg 05/29/25 13:09 Diphenhydramine Hcl Cap 25 Mg Capsule PO Q6H PRN Itching Furosemide 20 mg 05/29/25 09:00 06/01/25 09:12 Furosemide 20 Mg Tablet PO 20 mg DAILY IRENE Administration Gabapentin 800 mg 05/26/25 21:15 06/01/25 22:06 Gabapentin 400 Mg Capsule PO 800 mg Q12HR IRENE Administration Guaifenesin 1,200 mg 05/26/25 21:40 06/01/25 22:06 Guaifenesin 12 Hr 600 Mg Tabcr PO 1,200 mg Q12HR IRENE Administration Hydrocortisone Sodium Succinate 25 mg 06/01/25 09:45 06/01/25 11:04 Hydrocortisone Sodium Succinate 100 Mg/2 Ml Vial IV PUSH 25 mg Q24H IRENE Administration Ceftriaxone Sodium 1 gm/ 50 mls @ 100 mls/hr 05/31/25 10:00 06/01/25 11:05 Sodium Chloride IVPB 100 mls/hr Q24H IRENE Administration Amiodarone HCl/Dextrose 360 mg in 200 mls @ 33.333 mls/hr 05/30/25 20:48 06/02/25 06:01 Nexterone 360 Mg/D5w 200 Ml IV CONT 1 mg/min .Q6H IRENE 33.33 mls/hr 1 MG/MIN Infusion Ipratropium Addy 0.5 mg 05/28/25 12:00 06/02/25 07:14 Ipratropium Br 0.02% Inh Soln 0.5 Mg/2.5 Ml Vial INHALATION 0.5 mg [id number] IRENE Administration Ketorolac Tromethamine 30 mg 05/30/25 10:25 06/01/25 22:08 Ketorolac 30 Mg/Ml Vial (*Bkc) IV PUSH 30 mg Q6H PRN Administration Pain Rated 4-6 Levothyroxine Sodium 75 mcg 05/27/25 06:30 06/02/25 06:40 Levothyroxine Sodium 75 Mcg Tablet PO Not Given DAILY@0630 [facility] Lidocaine 1 patch 05/28/25 14:05 06/01/25 09:11 Lidocaine 5% Patch TRANSDERM 1 patch DAILY IRENE Administration Multivitamins/Minerals 1 tab 05/27/25 09:00 06/01/25 09:12 Multivitamins /C Lutein (Centrum Silver) Tablet *Bkc PO 1 tab DAILY IRENE Administration Ondansetron HCl 4 mg 05/26/25 21:08 Ondansetron Inj 4 Mg/2 Ml Vial IV PUSH Q6H PRN Nausea And Vomiting Pantoprazole Sodium 40 mg 05/27/25 09:00 06/01/25 09:14 Pantoprazole 40 Mg Tablet PO 40 mg QAM IRENE Administration Quetiapine Fumarate 100 mg 05/26/25 21:40 06/01/25 22:06 Quetiapine Fumarate 100 Mg Tablet PO 100 mg HS IRENE Administration Quetiapine Fumarate 50 mg 05/26/25 21:40 06/01/25 22:06 Quetiapine Fumarate 25 Mg Tablet PO 50 mg HS IRENE Administration Rivaroxaban 20 mg 05/30/25 17:00 06/01/25 16:46 Rivaroxaban 20 Mg Tablet PO 20 mg DAILY@1700 IRENE Administration Sodium Chloride 1 spray 05/29/25 13:08 05/29/25 19:46 Saline 0.65% Slim Soln 44 Ml Btl NASAL 1 spray Q6HR PRN Administration Congestion Vitamin D 125 mcg 05/27/25 09:00 06/01/25 09:13 Cholecalciferol (Vitamin D3) 125 Mcg (5,000 Units) Tablet PO 125 mcg DAILY IRENE Administration Radiology Results: ITS Impressions Chest CTA 05/26/25 18:29 IMPRESSION: 1. Extensive bilateral airspace disease, compatible with pneumonia, right greater than left. 2: Enlarged mediastinal and right hilar lymph nodes, likely reactive. Abdomen Ultrasound 05/27/25 09:25 IMPRESSION: 1. Hepatomegaly, with steatosis and/or diffuse hepatocellular disease. 2. Cirrhosis not excluded. Shoulder CT 05/30/25 11:01 IMPRESSION: 1. Polyarticular osteoarthritis. 2. Diffuse right lung disease, consistent with pneumonia. 3. Small right pleural effusion. Cervical Spine CT 05/30/25 11:04 IMPRESSION: 1. Severe cervical spondylosis, stable from 12/15/2024. 2. Anterior fusion procedure from C4 to C6. 3. Bilateral pneumonia. Chest X-Ray 06/02/25 07:44 Impression: 1: Asymmetric right-sided airspace disease, compatible with pneumonia without significant change. Labs Labs: Laboratory Results - last 24 hr 06/02/25 07:03 WBC 6.8 RBC 3.74 L Hgb 12.1 Hct 38.2 MCV 102.1 H MCH 32.4 MCHC 31.7 L RDW 14.5 Plt Count 302 MPV 9.2 Sodium 137 Potassium 3.8 Chloride 99 Carbon Dioxide 32 H Anion Gap 6 BUN 18 H Creatinine 1.00 Estim Creat Clear Calc 68 Estimated GFR 56 L Glucose 92 Calcium 8.7 Magnesium 2.0 Total Bilirubin 0.2 AST 25 ALT 35 Alkaline Phosphatase 126 Total Protein 5.6 L Albumin 3.0 L
[2025-06-02] MEDS: HYDROCORTISONE SODIUM SUCCINATE 100 MG/2 ML VIAL 25 MG IV PUSH (09:02)
[2025-06-02] MEDS: GABAPENTIN 400 MG CAPSULE 800 MG PO ×2 (09:03→22:11)
[2025-06-02] MEDS: CALCIUM CITRATE 315 MG/VITAMIN D 6.25 MCG (250 UNITS) TAB 2 TABLET PO ×2 (09:03→22:11)
[2025-06-02] MEDS: dilTIAZem HCL CD 120 MG CAP.24HR 240 MG PO (09:03)
[2025-06-02] MEDS: PANTOPRAZOLE 40 MG TABLET PO (09:03)
[2025-06-02] MEDS: guaiFENesin 12 HR 600 MG TABCR 1200 MG PO ×2 (09:03→22:11)
[2025-06-02] MEDS: FUROSEMIDE 20 MG TABLET PO (09:03)
[2025-06-02] MEDS: MULTIVITAMINS /C LUTEIN (CENTRUM SILVER) TABLET *BKC 1 TAB PO (09:04)
[2025-06-02] MEDS: AZITHROMYCIN 500 MG TABLET PO (09:04)
[2025-06-02] MEDS: CHOLECALCIFEROL (VITAMIN D3) 125 MCG (5,000 UNITS) TABLET PO (09:04)
[2025-06-02] MEDS: cefTRIAXone 1 GM in SODIUM CHLORIDE 0.9% IV 50 ML 100 ML IVPB (09:04)
--- NOTE | 2025-06-02 09:08 | P.PNPL_ITS ---
Progress Note: A&P Assessment and Plan (1) Community acquired pneumonia: Code(s): J18.9 - Pneumonia, unspecified organism Status: Acute Assessment and Plan: Patient presents with 36 hours of chills, rigors, shortness of breath, rattling in the chest, shortness of breath with a leukocytosis 14.3, bandemia 5%, CT angiogram of the chest with no PE but extensive patchy consolidative ground-glass infiltrates throughout the entire right lung, left upper lobe and left lower lobe and now with worsening oxygenation requiring Airvo 30 L and 65% FiO2. Her CRP is 29.5. Initial COVID, RSV, influenza RT PCR and assay negative. MRSA RT PCR negative today. patient has a severe community-acquired pneumonia. She is afebrile, she feels better than she did when she presented, no longer has hemoptysis, leukocytosis has resolved. 05/28/25: Plan: At this time I will continue ceftriaxone and change the azithromycin to IV. She has severe community-acquired pneumonia as she is requiring high-flow nasal cannula and her CRP is 29.5. Her pneumonia severity index score is 50. I will initiate hydrocortisone 50 mg IV q.6 hours. Patient has a tachy arrhythmia and I will discontinue beta agonist. I will continue ipratropium as she says the nebulized treatments were helping her. I will continue budesonide 500 mcg q.12 hours. I will repeat COVID, influenza, RSV RT PCR assay, send respiratory pathogen panel, urine for Legionella antigen, urine for pneumococcal antigen, check serum mycoplasma IgM levels on 05/28/2025. If the patient should decompensate will consider her a ceftriaxone and azithromycin failure and change her to meropenem and Levaquin. 05/29/2025: Overall the patient tells me she is the same as yesterday but a 1000 times better than when she presented. Her shortness of breath at rest and dyspnea on exertion or unchanged. She states her cough is worse but is now dry which is better. When I enter the room she was on Airvo 30 L 65% FiO2 with saturations 94%. I decreased her to nasal cannula oxygen and sequentially decreased her to 7 L nasal cannula her saturations were 92%. She is afebrile. White blood cell count 7.4, creatinine 0.76. CRP has improved from 20/9 0.5 on 05/28/2025 to a value of 19.8 today. Procalcitonin has improved from 1.6 on 05/28/2025 to a value of 1.0 today. Repeat COVID, influenza, RSV RT PCR assay on 05/28/2020 5-. Plan: Overall the patient continues to improve. Her leukocytosis has resolved, she is afebrile, her oxygenation has improved and her CRP and procalcitonin are decreasing on ceftriaxone and azithromycin, both started 05/26/2025. Will continue. Continue Solu-Medrol 50 mg IV q.6 hours (day 2). Blood cultures, respiratory pathogen panel, urine Legionella, urine pneumococcal and serum IgM for mycoplasma all pending. I will check a chest x-ray on 05/30/2025. 05/30/2025: Patient tells me she is breathing better today. She has no rest shortness of breath. She is no longer feeling cold and clammy. Her cough is the same with no phlegm and no hemoptysis. Patient slept better last night. When I enter the room she was on 7 L nasal cannula saturations 97%. I decreased her to 4 L nasal cannula her saturations were 95%. White blood cell count 7.1, creatinine 0.68. Yesterday she is positive 1.4 L, cumulative she is positive 1.9 L. Her weight today is 124.1 kg. Chest x-ray today shows worsening consolidative infiltrates on the right. Patient remains in AFib with heart rates 130-155 when I was in the room. She had her diltiazem increased by Cardiology to 240 a day and digoxin was added today. She complains of right trapezius pain that was similar to her pain prior to her neck operation in August of 2024. After the operation this pain went away but returned to the hospital. She has no shoulder or clavicular pain. Ice helps. I gave her manual massage with minimal improvement. She has Minimal neck tenderness. to breathing does not make this pain worse. She is receiving Toradol. Plan: Patient continues to improve, she is no longer cold and clammy, her breathing is better. Her leukocytosis has resolved, her oxygenation has improved. Her chest x-ray shows more consolidation and I suspect this is atelectasis versus mucus plugging. I will add EzPAP and Cornet flutter valve. Once her heart rate is stabilized recommend out of bed to chair. Continue ceftriaxone and azithromycin both started 05/26/2025. I will decrease her Solu- Medrol to 25 mg IV q.6 hours, day 3 of steroids. Blood cultures negative. respiratory pathogen panel, urine Legionella, urine pneumococcal and serum IgM for mycoplasma all pending. 05/31/2025: Last night the patient continued with AFib and RVR was started on amiodarone. The patient tells me she continues to improve and is breathing normal at rest now. She has been bed-bound due to heart rate issues. She denies cough or hemoptysis. Her phlegm is thick. When I enter the room the patient was on 3 L nasal cannula saturations 92%. I decreased her to 2 L and her saturations were 90-91%. She is afebrile. White blood cell count 7.5, creatinine 0.88. Patient tells me she is scheduled for cardioversion today. Plan: patient continues to improve from her pneumonia. Continue ceftriaxone and azithromycin both started 05/26/2025 (day 5 antibiotics). I will decrease his Solu-Medrol to 25 mg IV q.12 hours, day 4 of steroids. Mycoplasma IgM negative. Respiratory pathogen, urine Legionella, urine pneumococcal pending. 06/01/2025 : Patient tells me her breathing continues to improve. Her breathing is now normal at rest. When she pivots to go to the bedside commode she had no shortness of breath but her heart rate did increase. She has a cough with no phlegm and no hemoptysis. Currently patient is on 2 L nasal cannula saturations 92%. She is afebrile. White blood cell count 6.4, creatinine 0.94. Yesterday she was positive 963 mL and cumulative she is positive 4.66 L since admission. Her weight today is 125 kg. Plan: patient continues to improve from her pneumonia. Continue ceftriaxone and azithromycin both started 05/26/2025 (day 6 antibiotics). I will decrease his Solu-Medrol to 25 mg IV qD, day 5 of steroids. last dose on 06/02/2025. Mycoplasma IgM negative. Respiratory pathogen could not be run because the RT PCR was inhibited, urine Legionella, urine pneumococcal pending. I will discontinue the budesonide nebulization continue ipratropium as she states this is helping her. I will check a portable chest x-ray on 06/02/2025. AFib with RVR being managed by Cardiology and hospitalist currently on diltiazem, amiodarone and Lasix 20 p.o. q.day. 06/02/2025: Patient says her breathing is normal at rest. She had no dyspnea on exertion when walking to the bedside chair or to the bathroom. She denies fever, chills, rigors. Her cough is normal. She produce phlegm 2 times yesterday which is improved. When I enter the room she was on 2 L nasal cannula saturations 95%. I placed her on room air and after 3 minutes she had saturations 88% and I placed her on 1 L nasal cannula her saturations were 95%. Her white blood cell count is 6.8, creatinine is 1.0. Chest x-ray today with continued right lung interstitial infiltrates with no change compared to 05/30/2025. Yesterday she was minus 49 mL. Cumulative she is positive 3.8 L since admission. Her weight today is 125.1 kg. Remains with AFib RVR with activity. Plan: patient continues to improve from her pneumonia. Continue ceftriaxone and azithromycin both started 05/26/2025 (day 7 antibiotics). I Have discontinued the Solu-Medrol after today's dose of 25 mg IV qD, day 6 of steroids. Mycoplasma IgM negative. Respiratory pathogen could not be run because the RT PCR was inhibited, urine Legionella, urine pneumococcal pending. I will discontinue the ipratropium nebulizer today. if the patient continues to improve from a pulmonary perspective patient is ready to be discharged 06/03/[address] Alvarez. Will follow with you. (2) Acute respiratory failure with hypoxia: Code(s): J96.01 - Acute respiratory failure with hypoxia Status: Acute Assessment and Plan: Patient initially on no oxygen at home with no respiratory limitations. She has had 2 ABGs the last on 10 L with pH of 7.44/38/55. There is no evidence of hypercarbic respiratory failure. 05/26 16:00 room air, sats 93% 05/26 21:00 4 L NC, sats 92% 05/27 08:00 4 L NC, sats 91% 05/27 20:00 4 L NC, sats 90% 05/28 05:30 10 L NC, sats 86%, ABG 7.44/38.55 05/28 6:15 Airvo 30 L, 65%, sats 93% 05/28 11:00 Airvo 30 L, 65%, sats 95% 05/28 20:00 Airvo 30 L, 65%, sats 95% 05/29 07:45 Airvo 30 L, 65%, sats 94% 05/29 11:20 7 L NC, sats 92% 05/29 20:15 7 L NC, sats 91% 05/30 10:30 4 L NC, sats 95% 05/30 20:00 2 L NC, sats 95% 05/31 08:15 2 L NC, sats 91% 06/01 07:45 2 L NC, sats 92% 06/02 08:30 1 L NC, sats 95% goal saturation 90-94%, adjust oxygen accordingly. 06/01/2025: I will perform overnight oximetry on 2 L nasal cannula. She will need a home O2 assessment prior to discharge. 06/02/25: Patient had an overnight oximetry on 2 L nasal cannula with recording duration of 6 hours and 45 minutes. Average saturation 93%. Low saturation 78%. Time with saturation less than or equal to 88% was 14 minutes. Oxygen desaturation index was 6.1. plan: I will repeat overnight oximetry on 3 L tonight. Subjective Date/time seen: 06/02/25 09:08 Interval history: 05/28/25 This is a new pulmonary consult for pneumonia with hypoxemic re spiratory failure. 65-year-old with a history of hypertension, gastric bypass with revision in 2012, GERD, gout, hypothyroidism, neuropathy, chronic knee pain. Patient has no history of asthma, COPD, recurrent pneumonias. Patient is a never smoker. She was exposed to secondhand smoke from both of her parents and from [id number]. She worked for [employer] and denies vaping, illicit drug use, sand blasting, welding, asbestos exposure, professional painting, steel precision millwright, coal mining, or construction work. At baseline the patient tells me she can walk 1 and half blocks but has to stop for knee pain rather than any breathing issues. She has no respiratory limitations in her activities of daily living. She is on no home O2. Patient is in the process of extensive dental work and on 05/24/2025 she had 6 teeth pulled under local anesthesia. Prior to this procedure and after this procedure she had no breathing problems. She was in pain but had no cough or phlegm production. She slept that night. On 05/25/2025 the patient woke up and had rattling in her chest, chills, rigors, shortness of breath. Patient states her phlegm was read and could have been blood. She was fatigued. She went to bed and slept all night and most of the morning on 05/26/2025. 05/26/25: She woke up with worse headache of her life and presented to the emergency department. In the emergency department her blood pressure was 122/68, heart rate 105, respirations 22, room air saturations 93%. Her weight was 113.5 she was afebrile. White blood cell count 14.3, bands were 5%, no eosinophils, creatinine 0.67, COVID, influenza, RSV RT PCR assay negative. Chest x-ray with bilateral pneumonia. CT angiogram of the chest with no PE, patchy ground-glass consolidative infiltrates throughout all the right lung, lasts pronounced in the left upper lobe and left lower lobe. Patient was placed on Rocephin and azithromycin. 05/27/2025. Patient had mild improvement. At 8:00 a.m. she was on 4 L nasal cannula saturations 91%. Her white blood cell count was 12.2 she was afebrile. ABG on 4 L was 7.43/39/60. Patient gone into AFib RVR and was placed on metoprolol and Xarelto per Cardiology. At 8:00 p.m. patient was on 4 L nasal cannula saturations 90%. 05/28/2025. Overall patient feels a little worse than yesterday she is more tired, she states that she has 25% back to her normal and improved since admission. She has more coughing today but less phlegm. She has no hemoptysis and yellow phlegm. If 5:30 a.m. she was on 10 L nasal cannula with desats and an ABG of 7.44/38/55 and was placed on Airvo 30 L and 65% with saturations 95%. white blood cell count is 9.2, creatinine is 0.82, CRP is 29.5, BNP is 4520, procalcitonin is 1.6. chest x-ray today unchanged compared to 05/27/2025 with diffuse infiltrates throughout the lower right lung field with decreased lung volumes on the right minimal infiltrates in the left base. 05/29/2025: Overall the patient tells me she is the same as yesterday but a 1000 times better than when she presented. Her shortness of breath at rest and dyspnea on exertion or unchanged. She states her cough is worse but is now dry which is better. When I enter the room she was on Airvo 30 L 65% FiO2 with saturations 94%. I decreased her to nasal cannula oxygen and sequentially decreased her to 7 L nasal cannula her saturations were 92%. She is afebrile. White blood cell count 7.4, creatinine 0.76. CRP has improved from 20/9 0.5 on 05/28/2025 to a value of 19.8 today. Procalcitonin has improved from 1.6 on 05/28/2025 to a value of 1.0 today. 05/30/2025: Patient tells me she is breathing better today. She has no rest shortness of breath. She is no longer feeling cold and clammy. Her cough is the same with no phlegm and no hemoptysis. Patient slept better last night. When I enter the room she was on 7 L nasal cannula saturations 97%. I decreased her to 4 L nasal cannula her saturations were 95%. White blood cell count 7.1, creatinine 0.68. Yesterday she is positive 1.4 L, cumulative she is positive 1.9 L. Her weight today is 124.1 kg. Chest x-ray today shows worsening consolidative infiltrates on the right. Patient remains in AFib with heart rates 130-155 when I was in the room. She had her diltiazem increased by Cardiology to 240 a day and digoxin was added today. She complains of right trapezius pain that was similar to her pain prior to her neck operation in August of 2024. After the operation this pain went away but returned to the hospital. She has no shoulder or clavicular pain. Ice helps. I gave her manual massage with minimal improvement. She has Minimal neck tenderness. to breathing does not make this pain worse. She is receiving Toradol. CT cervical spine without acute changes, shoulder x-ray without acute changes. 05/31/2025: Last night the patient continued with AFib and RVR was started on amiodarone. The patient tells me she continues to improve and is breathing normal at rest now. She has been bed-bound due to heart rate issues. She denies cough or hemoptysis. Her phlegm is thick. When I enter the room the patient was on 3 L nasal cannula saturations 92%. I decreased her to 2 L and her saturations were 90-91%. She is afebrile. White blood cell count 7.5, creatinine 0.88. Patient tells me she is scheduled for cardioversion today. 06/01/2025 : Patient tells me her breathing continues to improve. Her breathing is now normal at rest. When she pivots to go to the bedside commode she had no shortness of breath but her heart rate did increase. She has a cough with no phlegm and no hemoptysis. Currently patient is on 2 L nasal cannula saturations 92%. She is afebrile. White blood cell count 6.4, creatinine 0.94. Yesterday she was positive 963 mL and cumulative she is positive 4.66 L since admission. Her weight today is 125 kg. 06/02/2025: Patient says her breathing is normal at rest. She had no dyspnea on exertion when walking to the bedside chair or to the bathroom. She denies fever, chills, rigors. Her cough is normal. She produce phlegm 2 times yesterday which is improved. When I enter the room she was on 2 L nasal cannula saturations 95%. I placed her on room air and after 3 minutes she had saturations 88% and I placed her on 1 L nasal cannula her saturations were 95%. Her white blood cell count is 6.8, creatinine is 1.0. Chest x-ray today with continued right lung interstitial infiltrates with no change compared to 05/30/2025. Yesterday she was minus 49 mL. Cumulative she is positive 3.8 L since admission. Her weight today is 125.1 kg. Patient had an overnight oximetry on 2 L nasal cannula with recording duration of 6 hours and 45 minutes. Average saturation 93%. Low saturation 78%. Time with saturation less than or equal to 88% was 14 minutes. Oxygen desaturation index was 6.1. Remains with AFib RVR with activity. DATA: 06/02/25: overnight oximetry on 2 L nasal cannula with recording duration of 6 hours and 45 minutes. Average saturation 93%. Low saturation 78%. Time with saturation less than or equal to 88% was 14 minutes. Oxygen desaturation index was 6.1. 05/27/25: Echo Summary Summary 1. Complete two-dimensional, color flow and Doppler transthoracic echocardiogram is performed. 2. Small amount of mitral and tricuspid regurgitation. 3. Otherwise structurally normal appearing heart. 4. Atrial fibrillation. Left Ventricle Left ventricular chamber dimension is normal. Left ventricular systolic function is normal, estimated at 65-70. Right Ventricle Right ventricular chamber dimension is normal. Left Atria Left atrial chamber dimension is normal. Right Atria Right atrial chamber dimension is normal. Tricuspid peak gradient 26. 05/27/2025: ULTRASOUND ABDOMEN LIMITED (RIGHT UPPER QUADRANT) Clinical History: Transaminitis Comparison: CT chest 1 day prior Technique: Right upper quadrant sonography Findings: Liver: Normal size. Normal echotexture. No intrahepatic biliary ductal d ilatation. Normal hepatopedal flow main portal vein. Micronodular contour. Common Duct: 7 mm. Gallbladder: Removed. Pancreas: Obscured by bowel gas. Right kidney: Unremarkable. Retrohepatic IVC: Unremarkable. IMPRESSION: 1. Hepatomegaly, with steatosis and/or diffuse hepatocellular disease. 2. Cirrhosis not excluded. 05/26/2025: EXAMINATION: CTA chest PE protocol DATE: 05/26/2025 18:29 CDT INDICATION: Pneumonia. Hemoptysis. TECHNIQUE: Computed tomographic angiography (CTA) of the chest was performed with 100 mL Omnipaque-350 intravenous contrast. The dose-length product was 885.28 mGy-cm. Maximum intensity projection 3D-reconstructions of the aorta and other arteries were constructed by the technologist on a separate workstation. COMPARISON: Chest x-ray dated 05/26/2025. FINDINGS: Study is technically adequate without evidence for pulmonary embolism. There is right hilar and subcarinal lymphadenopathy, likely reactive. There are bilateral breast implants. No significant pleural or pericardial effusion. There is extensive bilateral airspace consolidation, more so on the right, consistent with pneumonia. Airspace disease is most confluent in the right lower lobe. No endobronchial lesions. No pneumothorax. No significant pleural or pericardial effusion. There is surgical changes in the left upper abdomen. IMPRESSION: 1. Extensive bilateral airspace disease, compatible with pneumonia, right greater than left. 2: Enlarged mediastinal and right hilar lymph nodes, likely reactive. 12/15/2024: CHEST RADIOGRAPH CLINICAL HISTORY: fall . COMPARISON: 10/23/2021 TECHNIQUE: Single portable view of the chest. FINDINGS Significant elevation of the right hemidiaphragm with adjacent compressive atelectasis. The remainder of the lungs are clear. Dorsal column stimulator device is noted. The remainder of the cardiomediastinal silhouette is otherwise unremarkable. IMPRESSION: Elevation of the right hemidiaphragm with adjacent compressive atelectasis. The remainder of the lungs are clear. Review of Systems Constitutional: Constitutional: Reports no additional constitutional complaints Eyes: Eyes: Reports no additional eye complaints ENT: Reports system reviewed and no additional complaints, except as documented Cardiovascular: Cardiovascular: Reports no additional cardiovascular complaints Respiratory: Respiratory: Reports no additional respiratory complaints Gastrointestinal: Gastrointestinal: Reports no additional gastrointestinal complaints Musculoskeletal: Musculoskeletal: Reports no additional musculoskeletal complaints Neurologic: Reports system reviewed and no additional complaints, except as documented Psychiatric: Psychiatric: Reports no additional psychiatric complaints Endocrine: Endocrine: Reports no additional endocrine complaints Hematologic/Lymphatic: Hematologic/Lymphatic: Reports no additional hematologic/lymphatic complaints Allergic/Immunologic: Allergic/Immunologic: Reports no additional allergic/immunologic complaints Exam Const: General: cooperative, comfortable and no acute distress Orientation/consciousness: oriented to person, oriented to place and oriented to time HENMT: Head: normal to inspection Ears: hearing grossly normal bilaterally Eyes: General: appearance normal, both eyes and all related structures Neck: Neck: normal visual inspection Chest: Chest palpation & inspection: normal inspection of the chest Resp: Effort & Inspection: normal respiratory effort and able to speak in complete sentences Auscultation: crackles, no rales, no rhonchi, no wheezes and lung sounds not diminished Other: Diffuse crackles right lung and left base. Improved today Cardio: Jugular venous distension: no JVD Other: Irregularly Irregular GI: Inspection: normal to inspection Skin: General skin exam: normal color Neuro: General: oriented to person, oriented to place and oriented to time Extrem: General: normal to inspection and no edema Psych: Appearance: grossly normal Objective Data Vital Signs Vital Signs: Vital Signs - 24 hr 06/01/25 09:12 06/01/25 09:37 06/01/25 09:37 Temperature Pulse Rate 114 H 114 H Respiratory Rate Blood Pressure 127/99 H 127/99 H Pulse Oximetry 92 Oxygen Delivery Nasal Cannula Oxygen Flow Rate 1 Fraction of Inspired Oxygen 06/01/25 10:00 06/01/25 10:00 06/01/25 10:13 Temperature 36.5 C Pulse Rate 115 H 102 H 102 H Respiratory Rate 20 Blood Pressure 121/78 121/78 Pulse Oximetry 87 L Oxygen Delivery Oxygen Flow Rate Fraction of Inspired Oxygen 06/01/25 11:02 06/01/25 11:10 06/01/25 11:39 Temperature 36.6 C Pulse Rate 106 H 112 H 119 H Respiratory Rate 20 20 20 Blood Pressure 116/62 Pulse Oximetry 95 Oxygen Delivery Oxygen Flow Rate Fraction of Inspired Oxygen 06/01/25 12:00 06/01/25 12:00 06/01/25 12:00 Temperature Pulse Rate 107 H 123 H 119 H Respiratory Rate 18 Blood Pressure 116/62 Pulse Oximetry 93 Oxygen Delivery Nasal Cannula Oxygen Flow Rate 1 Fraction of Inspired Oxygen 06/01/25 13:06 06/01/25 14:00 06/01/25 14:00 Temperature Pulse Rate 118 H 118 H Respiratory Rate Blood Pressure 104/66 Pulse Oximetry Oxygen Delivery Nasal Cannula Oxygen Flow Rate 2 Fraction of Inspired Oxygen 06/01/25 14:43 06/01/25 15:04 06/01/25 15:38 Temperature 36.6 C Pulse Rate 121 H 118 H Respiratory Rate 18 20 Blood Pressure 101/69 Pulse Oximetry 95 Oxygen Delivery Nasal Cannula Oxygen Flow Rate 2 Fraction of Inspired Oxygen 06/01/25 15:48 06/01/25 16:00 06/01/25 16:00 Temperature Pulse Rate 118 H 110 H 110 H Respiratory Rate 20 Blood Pressure 106/70 106/70 Pulse Oximetry Oxygen Delivery Oxygen Flow Rate Fraction of Inspired Oxygen 06/01/25 16:00 06/01/25 16:00 06/01/25 16:00 Temperature 36.6 C Pulse Rate 118 H 118 H 122 H Respiratory Rate 20 20 Blood Pressure 106/70 Pulse Oximetry 93 93 Oxygen Delivery Nasal Cannula Oxygen Flow Rate 1 Fraction of Inspired Oxygen 06/01/25 18:00 06/01/25 18:00 06/01/25 19:39 Temperature Pulse Rate 128 H 128 H 124 H Respiratory Rate 20 Blood Pressure 107/70 Pulse Oximetry Oxygen Delivery Oxygen Flow Rate Fraction of Inspired Oxygen 06/01/25 19:41 06/01/25 19:57 06/01/25 20:00 Temperature Pulse Rate 124 H 115 H 133 H Respiratory Rate 20 20 20 Blood Pressure Pulse Oximetry 98 91 Oxygen Delivery Nasal Cannula Nasal Cannula Oxygen Flow Rate 3 3 Fraction of Inspired Oxygen 32 06/01/25 20:00 06/01/25 20:00 06/01/25 20:26 Temperature 36.4 C Pulse Rate 123 H 119 H 123 H Respiratory Rate 18 Blood Pressure 105/60 105/60 Pulse Oximetry 93 Oxygen Delivery Oxygen Flow Rate Fraction of Inspired Oxygen 06/01/25 22:00 06/01/25 22:00 06/01/25 22:04 Temperature Pulse Rate 140 H 117 H Respiratory Rate Blood Pressure 108/62 Pulse Oximetry 97 Oxygen Delivery Nasal Cannula Oxygen Flow Rate 2 Fraction of Inspired Oxygen 28 06/01/25 22:06 06/01/25 23:10 06/01/25 23:12 Temperature 36.4 C Pulse Rate 135 H 110 H 102 H Respiratory Rate 20 Blood Pressure 108/62 107/52 L Pulse Oximetry 95 95 Oxygen Delivery Nasal Cannula Oxygen Flow Rate 2 Fraction of Inspired Oxygen 06/02/25 00:00 06/02/25 00:00 06/02/25 02:00 Temperature Pulse Rate 119 H 109 H 105 H Respiratory Rate Blood Pressure 107/52 L Pulse Oximetry Oxygen Delivery Oxygen Flow Rate Fraction of Inspired Oxygen 06/02/25 02:00 06/02/25 04:00 06/02/25 04:00 Temperature Pulse Rate 94 95 108 H Respiratory Rate Blood Pressure 110/68 Pulse Oximetry 92 Oxygen Delivery Nasal Cannula Oxygen Flow Rate 2 Fraction of Inspired Oxygen 06/02/25 04:06 06/02/25 04:06 06/02/25 06:00 Temperature Pulse Rate 89 109 H 99 Respiratory Rate Blood Pressure 118/64 118/64 Pulse Oximetry Oxygen Delivery Oxygen Flow Rate Fraction of Inspired Oxygen 06/02/25 06:01 06/02/25 06:20 06/02/25 07:14 Temperature 36.4 C Pulse Rate 95 96 110 H Respiratory Rate 20 20 Blood Pressure 104/63 115/59 L Pulse Oximetry 91 Oxygen Delivery Oxygen Flow Rate Fraction of Inspired Oxygen 06/02/25 07:17 06/02/25 07:21 06/02/25 07:46 Temperature 36.4 C Pulse Rate 110 H 100 102 H Respiratory Rate 20 20 Blood Pressure 104/60 Pulse Oximetry 90 94 Oxygen Delivery Nasal Cannula Oxygen Flow Rate 2 Fraction of Inspired Oxygen Intake/Output Intake/Output: Intake & Output 05/30/25 05/31/25 06/01/25 06/02/25 23:59 23:59 23:59 23:59 Intake Total 1803.3 2313.3 2550.6 713.9 Output Total 900 1050 2600 600 Balance 903.3 1263.3 -49.4 113.9 Meds/Results Medications: Active Medications Generic Name Dose Route Start Last Admin Trade Name Freq PRN Reason Stop Dose Admin Acetaminophen 650 mg 05/26/25 18:40 05/27/25 09:59 Acetaminophen 325 Mg Tablet PO 650 mg Q4H PRN Administration Mild Pain (1-3) or Fever Hydrocodone Bitart/Acetaminophen 1 tab 05/27/25 20:59 05/31/25 11:01 Hydrocodone/Acetaminophen (*Crx) 5-325 Mg Tablet PO 1 tab Q6H PRN Administration Pain Rated 4-10 Amitriptyline HCl 150 mg 05/27/25 21:00 06/01/25 22:07 Amitriptyline Hcl 25 Mg Tablet PO 150 mg HS IRENE Administration Azithromycin 500 mg 06/02/25 09:00 06/02/25 09:04 Azithromycin 500 Mg Tablet PO 06/08/25 09:01 500 mg DAILY IRENE Administration Benzonatate 200 mg 05/28/25 14:03 Benzonatate 100 Mg Capsule PO TID PRN Cough Bupropion HCl 150 mg 05/26/25 21:15 06/01/25 22:06 Bupropion Hcl Xl (24 Hr) 150 Mg Tabcr PO 150 mg HS IRENE Administration Buspirone HCl 10 mg 05/26/25 21:20 06/02/25 09:03 Buspirone Hcl 10 Mg Tablet PO 10 mg BID IRENE Administration Calcium Citrate 2 tablet 05/27/25 09:00 06/02/25 09:03 Calcium Citrate 315 Mg/Vitamin D 6.25 Mcg (250 Units) Tab PO 2 tablet BID IRENE Administration Diazepam 5 mg 05/30/25 09:56 05/31/25 12:03 Diazepam Inj (*Crx) 10 Mg/2 Ml Syringe IV PUSH 5 mg Q8HR PRN Administration Muscle Spasm Diltiazem HCl 240 mg 05/30/25 09:00 06/02/25 09:03 Diltiazem Hcl Cd 120 Mg Cap.24hr PO 240 mg QAM IRENE Administration Diphenhydramine HCl 25 mg 05/29/25 13:09 Diphenhydramine Hcl Cap 25 Mg Capsule PO Q6H PRN Itching Furosemide 20 mg 05/29/25 09:00 06/02/25 09:03 Furosemide 20 Mg Tablet PO 20 mg DAILY IRENE Administration Gabapentin 800 mg 05/26/25 21:15 06/02/25 09:03 Gabapentin 400 Mg Capsule PO 800 mg Q12HR IRENE Administration Guaifenesin 1,200 mg 05/26/25 21:40 06/02/25 09:03 Guaifenesin 12 Hr 600 Mg Tabcr PO 1,200 mg Q12HR IRENE Administration Hydrocortisone Sodium Succinate 25 mg 06/01/25 09:45 06/02/25 09:02 Hydrocortisone Sodium Succinate 100 Mg/2 Ml Vial IV PUSH 25 mg Q24H IRENE Administration Ceftriaxone Sodium 1 gm/ 50 mls @ 100 mls/hr 05/31/25 10:00 06/02/25 09:04 Sodium Chloride IVPB 100 mls/hr Q24H IRENE Administration Amiodarone HCl/Dextrose 360 mg in 200 mls @ 33.333 mls/hr 05/30/25 20:48 06/02/25 06:01 Nexterone 360 Mg/D5w 200 Ml IV CONT 1 mg/min .Q6H IRENE 33.33 mls/hr 1 MG/MIN Infusion Ipratropium Hubbell 0.5 mg 05/28/25 12:00 06/02/25 07:14 Ipratropium Br 0.02% Inh Soln 0.5 Mg/2.5 Ml Vial INHALATION 0.5 mg [id number] IRENE Administration Ketorolac Tromethamine 30 mg 05/30/25 10:25 06/01/25 22:08 Ketorolac 30 Mg/Ml Vial (*Bkc) IV PUSH 30 mg Q6H PRN Administration Pain Rated 4-6 Levothyroxine Sodium 75 mcg 05/27/25 06:30 06/02/25 06:40 Levothyroxine Sodium 75 Mcg Tablet PO Not Given DAILY@0630 [facility] Lidocaine 1 patch 05/28/25 14:05 06/01/25 09:11 Lidocaine 5% Patch TRANSDERM 1 patch DAILY IRENE Administration Multivitamins/Minerals 1 tab 05/27/25 09:00 06/02/25 09:04 Multivitamins /C Lutein (Centrum Silver) Tablet *Bkc PO 1 tab DAILY IRENE Administration Ondansetron HCl 4 mg 05/26/25 21:08 Ondansetron Inj 4 Mg/2 Ml Vial IV PUSH Q6H PRN Nausea And Vomiting Pantoprazole Sodium 40 mg 05/27/25 09:00 06/02/25 09:03 Pantoprazole 40 Mg Tablet PO 40 mg QAM IRENE Administration Quetiapine Fumarate 100 mg 05/26/25 21:40 06/01/25 22:06 Quetiapine Fumarate 100 Mg Tablet PO 100 mg HS IRENE Administration Quetiapine Fumarate 50 mg 05/26/25 21:40 06/01/25 22:06 Quetiapine Fumarate 25 Mg Tablet PO 50 mg HS IRENE Administration Rivaroxaban 20 mg 05/30/25 17:00 06/01/25 16:46 Rivaroxaban 20 Mg Tablet PO 20 mg DAILY@1700 [facility] Administration Sodium Chloride 1 spray 05/29/25 13:08 05/29/25 19:46 Saline 0.65% Slim Soln 44 Ml Btl NASAL 1 spray Q6HR PRN Administration Congestion Vitamin D 125 mcg 05/27/25 09:00 06/02/25 09:04 Cholecalciferol (Vitamin D3) 125 Mcg (5,000 Units) Tablet PO 125 mcg DAILY IRENE Administration Radiology Results: ITS Impressions Chest CTA 05/26/25 18:29 IMPRESSION: 1. Extensive bilateral airspace disease, compatible with pneumonia, right greater than left. 2: Enlarged mediastinal and right hilar lymph nodes, likely reactive. Abdomen Ultrasound 05/27/25 09:25 IMPRESSION: 1. Hepatomegaly, with steatosis and/or diffuse hepatocellular disease. 2. Cirrhosis not excluded. Shoulder CT 05/30/25 11:01 IMPRESSION: 1. Polyarticular osteoarthritis. 2. Diffuse right lung disease, consistent with pneumonia. 3. Small right pleural effusion. Cervical Spine CT 05/30/25 11:04 IMPRESSION: 1. Severe cervical spondylosis, stable from 12/15/2024. 2. Anterior fusion procedure from C4 to C6. 3. Bilateral pneumonia. Chest X-Ray 06/02/25 07:44 Impression: 1: Asymmetric right-sided airspace disease, compatible with pneumonia without significant change. Labs Labs: Laboratory Results - last 24 hr 06/02/25 07:03 WBC 6.8 RBC 3.74 L Hgb 12.1 Hct 38.2 MCV 102.1 H MCH 32.4 MCHC 31.7 L RDW 14.5 Plt Count 302 MPV 9.2 Sodium 137 Potassium 3.8 Chloride 99 Carbon Dioxide 32 H Anion Gap 6 BUN 18 H Creatinine 1.00 Estim Creat Clear Calc 68 Estimated GFR 56 L Glucose 92 Calcium 8.7 Magnesium 2.0 Total Bilirubin 0.2 AST 25 ALT 35 Alkaline Phosphatase 126 Total Protein 5.6 L Albumin 3.0 L
[2025-06-02] MEDS: DOCUSATE SODIUM 100 MG CAPSULE PO ×2 (09:47→22:11)
--- NOTE | 2025-06-02 12:11 | P.PNIM_ITS ---
Progress Note: A&P Assessment and Plan (1) Hypertension: Code(s): I10 - Essential (primary) hypertension Status: Chronic (2) Atrial fibrillation with rapid ventricular response: Code(s): I48.91 - Unspecified atrial fibrillation Status: Acute (3) Hypothyroidism: Code(s): E03.9 - Hypothyroidism, unspecified Status: Chronic (4) Hypoxia: Code(s): R09.02 - Hypoxemia Status: Acute (5) Community acquired pneumonia: Code(s): J18.9 - Pneumonia, unspecified organism Status: Acute (6) Acute respiratory failure with hypoxia: Code(s): J96.01 - Acute respiratory failure with hypoxia Status: Acute Plan 65-year-old female patient with history of obesity, depression, anemia, anxiety, GERD, hypertension who presented to the emergency room today with complaints of 3 days of headache, cough, shortness of breath, in generalize malaise and fatigue. Chest x-ray showed bilateral pneumonia and CT chest PE protocol shows extensive bilateral airspace disease compatible with pneumonia, right greater the left. There are also enlarged mediastinal and right hilar lymph nodes are likely reactive. There is no pulmonary embolism. (1) Acute respiratory failure with hypoxia: Secondary to community-acquired pneumonia Continue with O2 support Currently on 1-2 L Pulmonary following CTA chest with no PE Continue ceftriaxone and azithromycin Solu-Medrol has been stopped Mycoplasma IgM is negative Will need a 6 minute walk prior to discharge Blood cultures have been negative till date (2) Atrial fibrillation with rapid ventricular response: Continue with tele monitoring Cardiology following Echocardiogram with LVEF of 65-70% Currently on amiodarone drip Continue with Cardizem Plan for cardioversion tomorrow Continue with Xarelto (3) Transaminitis: Liver enzymes have normalized Hepatitis panel was negative (4) Anxiety: Continue home medications of Wellbutrin, BuSpar, Seroquel (5) Hypertension: Continue with Cardizem Not on any other antihypertensives (6) GERD (gastroesophageal reflux disease): Continue with PPI (7) Hypothyroidism: Continue levothyroxine 8. Code status: Full code 9. DVT prophylaxis: Xarelto Time Spent With Patient Time: 39 mins Subjective Date/time seen: 06/02/25 12:11 Interval history: No acute events overnight Review of Systems Review of Systems: All systems reviewed & are unremarkable except as noted in HPI and below Exam Const: General: cooperative, comfortable and no acute distress HENMT: Head: normal to inspection Eyes: Sclera: sclerae normal Neck: Neck: supple Resp: Effort & Inspection: normal respiratory effort and able to speak in complete sentences Auscultation: crackles, no rales, no rhonchi, no wheezes and lung sounds not diminished Other: Diffuse crackles right lung and left base. Improved today Cardio: Jugular venous distension: no JVD Rate: regular rate Other: Irregularly Irregular GI: Inspection: normal to inspection GI Palp: Yes Soft to palpation Skin: General skin exam: normal color Neuro: General: oriented to person, oriented to place and oriented to time Extrem: General: normal to inspection and no edema Psych: Mental Status: mental status grossly normal Objective Data Vital Signs Vital Signs: Vital Signs - 24 hr 06/01/25 13:06 06/01/25 14:00 06/01/25 14:00 Temperature Pulse Rate 118 H 118 H Respiratory Rate Blood Pressure 104/66 Pulse Oximetry Oxygen Delivery Nasal Cannula Oxygen Flow Rate 2 Fraction of Inspired Oxygen 06/01/25 14:43 06/01/25 15:04 06/01/25 15:38 Temperature 97.9 F Pulse Rate 121 H 118 H Respiratory Rate 18 20 Blood Pressure 101/69 Pulse Oximetry 95 Oxygen Delivery Nasal Cannula Oxygen Flow Rate 2 Fraction of Inspired Oxygen 06/01/25 15:48 06/01/25 16:00 06/01/25 16:00 Temperature Pulse Rate 118 H 110 H 110 H Respiratory Rate 20 Blood Pressure 106/70 106/70 Pulse Oximetry Oxygen Delivery Oxygen Flow Rate Fraction of Inspired Oxygen 06/01/25 16:00 06/01/25 16:00 06/01/25 16:00 Temperature 97.8 F Pulse Rate 118 H 118 H 122 H Respiratory Rate 20 20 Blood Pressure 106/70 Pulse Oximetry 93 93 Oxygen Delivery Nasal Cannula Oxygen Flow Rate 1 Fraction of Inspired Oxygen 06/01/25 18:00 06/01/25 18:00 06/01/25 19:39 Temperature Pulse Rate 128 H 128 H 124 H Respiratory Rate 20 Blood Pressure 107/70 Pulse Oximetry Oxygen Delivery Oxygen Flow Rate Fraction of Inspired Oxygen 06/01/25 19:41 06/01/25 19:57 06/01/25 20:00 Temperature Pulse Rate 124 H 115 H 133 H Respiratory Rate 20 20 20 Blood Pressure Pulse Oximetry 98 91 Oxygen Delivery Nasal Cannula Nasal Cannula Oxygen Flow Rate 3 3 Fraction of Inspired Oxygen 32 06/01/25 20:00 06/01/25 20:00 06/01/25 20:26 Temperature 97.6 F Pulse Rate 123 H 119 H 123 H Respiratory Rate 18 Blood Pressure 105/60 105/60 Pulse Oximetry 93 Oxygen Delivery Oxygen Flow Rate Fraction of Inspired Oxygen 06/01/25 22:00 06/01/25 22:00 06/01/25 22:04 Temperature Pulse Rate 140 H 117 H Respiratory Rate Blood Pressure 108/62 Pulse Oximetry 97 Oxygen Delivery Nasal Cannula Oxygen Flow Rate 2 Fraction of Inspired Oxygen 28 06/01/25 22:06 06/01/25 23:10 06/01/25 23:12 Temperature 97.6 F Pulse Rate 135 H 110 H 102 H Respiratory Rate 20 Blood Pressure 108/62 107/52 L Pulse Oximetry 95 95 Oxygen Delivery Nasal Cannula Oxygen Flow Rate 2 Fraction of Inspired Oxygen 06/02/25 00:00 06/02/25 00:00 06/02/25 02:00 Temperature Pulse Rate 119 H 109 H 105 H Respiratory Rate Blood Pressure 107/52 L Pulse Oximetry Oxygen Delivery Oxygen Flow Rate Fraction of Inspired Oxygen 06/02/25 02:00 06/02/25 04:00 06/02/25 04:00 Temperature Pulse Rate 94 95 108 H Respiratory Rate Blood Pressure 110/68 Pulse Oximetry 92 Oxygen Delivery Nasal Cannula Oxygen Flow Rate 2 Fraction of Inspired Oxygen 06/02/25 04:06 06/02/25 04:06 06/02/25 06:00 Temperature Pulse Rate 89 109 H 99 Respiratory Rate Blood Pressure 118/64 118/64 Pulse Oximetry Oxygen Delivery Oxygen Flow Rate Fraction of Inspired Oxygen 06/02/25 06:01 06/02/25 06:20 06/02/25 07:14 Temperature 97.6 F Pulse Rate 95 96 110 H Respiratory Rate 20 20 Blood Pressure 104/63 115/59 L Pulse Oximetry 91 Oxygen Delivery Oxygen Flow Rate Fraction of Inspired Oxygen 06/02/25 07:17 06/02/25 07:21 06/02/25 07:46 Temperature 97.6 F Pulse Rate 110 H 100 102 H Respiratory Rate 20 20 Blood Pressure 104/60 Pulse Oximetry 90 94 Oxygen Delivery Nasal Cannula Oxygen Flow Rate 2 Fraction of Inspired Oxygen 06/02/25 08:00 06/02/25 09:17 06/02/25 09:17 Temperature Pulse Rate 108 H 110 H 110 H Respiratory Rate Blood Pressure 104/60 104/60 104/60 Pulse Oximetry Oxygen Delivery Oxygen Flow Rate Fraction of Inspired Oxygen 06/02/25 10:00 Temperature Pulse Rate 100 Respiratory Rate Blood Pressure 101/65 Pulse Oximetry Oxygen Delivery Oxygen Flow Rate Fraction of Inspired Oxygen Intake/Output Intake/Output: Intake & Output 05/30/25 05/31/25 06/01/25 06/02/25 23:59 23:59 23:59 23:59 Intake Total 1803.3 2313.3 2550.6 846.7 Output Total 900 1050 2600 600 Balance 903.3 1263.3 -49.4 246.7 Meds/Results Medications: Active Medications Generic Name Dose Route Start Last Admin Trade Name Freq PRN Reason Stop Dose Admin Acetaminophen 650 mg 05/26/25 18:40 05/27/25 09:59 Acetaminophen 325 Mg Tablet PO 650 mg Q4H PRN Administration Mild Pain (1-3) or Fever Hydrocodone Bitart/Acetaminophen 1 tab 05/27/25 20:59 05/31/25 11:01 Hydrocodone/Acetaminophen (*Crx) 5-325 Mg Tablet PO 1 tab Q6H PRN Administration Pain Rated 4-10 Amitriptyline HCl 150 mg 05/27/25 21:00 06/01/25 22:07 Amitriptyline Hcl 25 Mg Tablet PO 150 mg HS IRENE Administration Azithromycin 500 mg 06/02/25 09:00 06/02/25 09:04 Azithromycin 500 Mg Tablet PO 06/08/25 09:01 500 mg DAILY IRENE Administration Benzonatate 200 mg 05/28/25 14:03 Benzonatate 100 Mg Capsule PO TID PRN Cough Bupropion HCl 150 mg 05/26/25 21:15 06/01/25 22:06 Bupropion Hcl Xl (24 Hr) 150 Mg Tabcr PO 150 mg HS IRENE Administration Buspirone HCl 10 mg 06/02/25 21:00 Buspirone Hcl 10 Mg Tablet PO Q12HR IRENE Calcium Citrate 2 tablet 06/02/25 21:00 Calcium Citrate 315 Mg/Vitamin D 6.25 Mcg (250 Units) Tab PO Q12HR IRENE Diazepam 5 mg 05/30/25 09:56 05/31/25 12:03 Diazepam Inj (*Crx) 10 Mg/2 Ml Syringe IV PUSH 5 mg Q8HR PRN Administration Muscle Spasm Diltiazem HCl 240 mg 05/30/25 09:00 06/02/25 09:03 Diltiazem Hcl Cd 120 Mg Cap.24hr PO 240 mg QAM IRENE Administration Diphenhydramine HCl 25 mg 05/29/25 13:09 Diphenhydramine Hcl Cap 25 Mg Capsule PO Q6H PRN Itching Docusate Sodium 100 mg 06/02/25 09:20 06/02/25 09:47 Docusate Sodium 100 Mg Capsule PO 100 mg Q12HR IRENE Administration Furosemide 20 mg 05/29/25 09:00 06/02/25 09:03 Furosemide 20 Mg Tablet PO 20 mg DAILY IRENE Administration Gabapentin 800 mg 05/26/25 21:15 06/02/25 09:03 Gabapentin 400 Mg Capsule PO 800 mg Q12HR IRENE Administration Guaifenesin 1,200 mg 05/26/25 21:40 06/02/25 09:03 Guaifenesin 12 Hr 600 Mg Tabcr PO 1,200 mg Q12HR IRENE Administration Ceftriaxone Sodium 1 gm/ 50 mls @ 100 mls/hr 05/31/25 10:00 06/02/25 09:04 Sodium Chloride IVPB 100 mls/hr Q24H IRENE Administration Amiodarone HCl/Dextrose 360 mg in 200 mls @ 33.333 mls/hr 05/30/25 20:48 06/02/25 10:00 Nexterone 360 Mg/D5w 200 Ml IV CONT 1 mg/min .Q6H IRENE 33.33 mls/hr 1 MG/MIN Infusion Ketorolac Tromethamine 30 mg 05/30/25 10:25 06/01/25 22:08 Ketorolac 30 Mg/Ml Vial (*Bkc) IV PUSH 30 mg Q6H PRN Administration Pain Rated 4-6 Levothyroxine Sodium 75 mcg 05/27/25 06:30 06/02/25 06:40 Levothyroxine Sodium 75 Mcg Tablet PO Not Given DAILY@0630 [facility] Lidocaine 1 patch 05/28/25 14:05 06/02/25 09:48 Lidocaine 5% Patch TRANSDERM Not Given DAILY [facility] Multivitamins/Minerals 1 tab 05/27/25 09:00 06/02/25 09:04 Multivitamins /C Lutein (Centrum Silver) Tablet *Bkc PO 1 tab DAILY IRENE Administration Ondansetron HCl 4 mg 05/26/25 21:08 Ondansetron Inj 4 Mg/2 Ml Vial IV PUSH Q6H PRN Nausea And Vomiting Pantoprazole Sodium 40 mg 05/27/25 09:00 06/02/25 09:03 Pantoprazole 40 Mg Tablet PO 40 mg QAM IRENE Administration Polyethylene Glycol 17 gm 06/02/25 09:20 06/02/25 09:47 Polyethylene Glycol 3350 17 Gm Powd.Pack PO 17 gm QAM IRENE Administration Quetiapine Fumarate 100 mg 05/26/25 21:40 06/01/25 22:06 Quetiapine Fumarate 100 Mg Tablet PO 100 mg HS IRENE Administration Quetiapine Fumarate 50 mg 05/26/25 21:40 06/01/25 22:06 Quetiapine Fumarate 25 Mg Tablet PO 50 mg HS IRENE Administration Rivaroxaban 20 mg 05/30/25 17:00 06/01/25 16:46 Rivaroxaban 20 Mg Tablet PO 20 mg DAILY@1700 IRENE Administration Sodium Chloride 1 spray 05/29/25 13:08 05/29/25 19:46 Saline 0.65% Slim Soln 44 Ml Btl NASAL 1 spray Q6HR PRN Administration Congestion Vitamin D 125 mcg 05/27/25 09:00 06/02/25 09:04 Cholecalciferol (Vitamin D3) 125 Mcg (5,000 Units) Tablet PO 125 mcg DAILY IRENE Administration Radiology Results: ITS Impressions Chest CTA 05/26/25 18:29 IMPRESSION: 1. Extensive bilateral airspace disease, compatible with pneumonia, right greater than left. 2: Enlarged mediastinal and right hilar lymph nodes, likely reactive. Abdomen Ultrasound 05/27/25 09:25 IMPRESSION: 1. Hepatomegaly, with steatosis and/or diffuse hepatocellular disease. 2. Cirrhosis not excluded. Shoulder CT 05/30/25 11:01 IMPRESSION: 1. Polyarticular osteoarthritis. 2. Diffuse right lung disease, consistent with pneumonia. 3. Small right pleural effusion. Cervical Spine CT 05/30/25 11:04 IMPRESSION: 1. Severe cervical spondylosis, stable from 12/15/2024. 2. Anterior fusion procedure from C4 to C6. 3. Bilateral pneumonia. Chest X-Ray 06/02/25 07:44 Impression: 1: Asymmetric right-sided airspace disease, compatible with pneumonia without significant change. Labs Labs: Laboratory Results - last 24 hr 06/02/25 07:03 WBC 6.8 RBC 3.74 L Hgb 12.1 Hct 38.2 MCV 102.1 H MCH 32.4 MCHC 31.7 L RDW 14.5 Plt Count 302 MPV 9.2 Sodium 137 Potassium 3.8 Chloride 99 Carbon Dioxide 32 H Anion Gap 6 BUN 18 H Creatinine 1.00 Estim Creat Clear Calc 68 Estimated GFR 56 L Glucose 92 Calcium 8.7 Magnesium 2.0 Total Bilirubin 0.2 AST 25 ALT 35 Alkaline Phosphatase 126 Total Protein 5.6 L Albumin 3.0 L Quality VTE Prophylaxis VTE prophylaxis: pharmacologic ordered
--- NOTE | 2025-06-02 15:32 | ECG_ITS ---
Test Date: 2025-06-02 15:56:50 Measurements Intervals [place] Rate: 86 P: 61 OK: 172 QRS: 11 QRSD: 89 T: 35 QT: 361 QTc: 433 Interpretive Statements SINUS RHYTHM MINIMAL Q WAVES- INFERIOR LEADS BASELINE ARTIFACT- I, II, AVR, AVL, AVF, V1-V3 BORDERLINE ECG Compared to ECG 05/27/2025 18:06:27 Atrial fibrillation no longer present Electronically Signed On 06-02-2025 16:11:35 CDT by Romeo Valdez D.O.
[2025-06-02] MEDS: RIVAROXABAN 20 MG TABLET PO (16:12)
[2025-06-02] MEDS: AMIODARONE HCL 200 MG TABLET PO (16:12)
[2025-06-02] MEDS: AMITRIPTYLINE HCL 25 MG TABLET 150 MG PO (22:12)
[2025-06-02] MEDS: buPROPion HCL XL (24 HR) 150 MG TABCR PO (22:12)
[2025-06-03] VITALS (20 sets, daily range): BP systolic 104–111; BP diastolic 49–59; PULSE 87–121; RESP 18–20; TEMP 36.6–37; O2SAT 84–97
[2025-06-03 05:15] LABS: Hematocrit 35.9 % (37.0-47.0); Hemoglobin 11.2 g/dL (12.0-15.0); Mean Corpuscular HGB Conc 31.2 g/dl (32-36); Mean Corpuscular Hemoglobin 32.3 pg (26-34); Mean Corpuscular Volume 103.5 fl (80-100); Platelet Count Result 300 k/mm3 (150-375); Red Blood Count 3.47 M/mm3 (4.2-5.4); White Blood Count 7.6 K/mm3 (4.5-10.0)
[2025-06-03 05:30] LABS: Alanine Aminotransferase 29 U/L (6-35); Albumin Level 2.9 g/dL (3.5-5.1); Alkaline Phosphatase 104 U/L (38-126); Anion Gap 3 mmol/L (4-12); Aspartate Amino Transferase 25 U/L (14-36); Bilirubin,Total 0.1 mg/dL (0.2-1.3); Blood Urea Nitrogen 18 mg/dL (7-17); Calcium 8.5 mg/dL (8.4-10.2); Carbon Dioxide 32 mmol/L (22-30); Chloride 102 mmol/L (98-107); Estimated CRCL calculation 62 ml/min; Estimated Glomerular Filt Rate 50; Glucose 86 mg/dL (65-110); Magnesium 2.1 mg/dL (1.6-2.3); Potassium 4.0 mmol/L (3.4-5.0); Sodium 137 mmol/L (137-145); Total Protein 5.5 g/dL (6.3-8.2)
[2025-06-03] MEDS: LEVOTHYROXINE SODIUM 75 MCG TABLET PO (06:28)
[2025-06-03] MEDS: guaiFENesin 12 HR 600 MG TABCR 1200 MG PO (08:31)
[2025-06-03] MEDS: PANTOPRAZOLE 40 MG TABLET PO (08:31)
[2025-06-03] MEDS: MULTIVITAMINS /C LUTEIN (CENTRUM SILVER) TABLET *BKC 1 TAB PO (08:31)
[2025-06-03] MEDS: GABAPENTIN 400 MG CAPSULE 800 MG PO (08:31)
[2025-06-03] MEDS: CALCIUM CITRATE 315 MG/VITAMIN D 6.25 MCG (250 UNITS) TAB 2 TABLET PO (08:32)
[2025-06-03] MEDS: DOCUSATE SODIUM 100 MG CAPSULE PO (08:32)
[2025-06-03] MEDS: CHOLECALCIFEROL (VITAMIN D3) 125 MCG (5,000 UNITS) TABLET PO (08:32)
[2025-06-03] MEDS: dilTIAZem HCL CD 120 MG CAP.24HR 240 MG PO (08:32)
[2025-06-03] MEDS: AMIODARONE HCL 200 MG TABLET PO (08:32)
[2025-06-03] MEDS: FUROSEMIDE 20 MG TABLET PO (08:32)
[2025-06-03] MEDS: AZITHROMYCIN 500 MG TABLET PO (08:32)
--- NOTE | 2025-06-03 09:09 | PM.IMPN ---
Progress Note: A&P Assessment and Plan (1) Hypertension: Code(s): I10 - Essential (primary) hypertension Status: Chronic (2) Atrial fibrillation with rapid ventricular response: Code(s): I48.91 - Unspecified atrial fibrillation Status: Acute (3) Hypothyroidism: Code(s): E03.9 - Hypothyroidism, unspecified Status: Chronic (4) Hypoxia: Code(s): R09.02 - Hypoxemia Status: Acute (5) Community acquired pneumonia: Code(s): J18.9 - Pneumonia, unspecified organism Status: Acute (6) Acute respiratory failure with hypoxia: Code(s): J96.01 - Acute respiratory failure with hypoxia Status: Acute Plan 65-year-old female patient with history of obesity, depression, anemia, anxiety, GERD, hypertension who presented to the emergency room today with complaints of 3 days of headache, cough, shortness of breath, in generalized malaise and fatigue. Chest x-ray showed bilateral pneumonia and CT chest PE protocol shows extensive bilateral airspace disease compatible with pneumonia, right greater the left. There are also enlarged mediastinal and right hilar lymph nodes are likely reactive. There is no pulmonary embolism. (1) Acute respiratory failure with hypoxia: Secondary to community-acquired pneumonia Continue with O2 support Currently on 1-2 L Pulmonary following CTA chest with no PE Continue ceftriaxone and azithromycin Solu-Medrol has been stopped Mycoplasma IgM is negative Will need a 6 minute walk prior to discharge Blood cultures have been negative till date (2) Atrial fibrillation with rapid ventricular response: Continue with tele monitoring Cardiology following Echocardiogram with LVEF of 65-70% Currently on amiodarone drip Continue with Cardizem Plan for cardioversion today Continue with Xarelto (3) Transaminitis: Liver enzymes have normalized Hepatitis panel was negative (4) Anxiety: Continue home medications of Wellbutrin, BuSpar, Seroquel (5) Hypertension: Continue with Cardizem Not on any other antihypertensives (6) GERD (gastroesophageal reflux disease): Continue with PPI (7) Hypothyroidism: Continue levothyroxine 8. Code status: Full code 9. DVT prophylaxis: Xarelto Subjective Date/time seen: 06/03/25 09:09 Interval history: Chart reviewed. On 2 L oxygen which is stable. Labs reviewed Review of Systems Review of Systems: All systems reviewed & are unremarkable except as noted in HPI and below Exam Narrative: APPEARANCE: Alert and oriented x3 not in acute distress HEAD: normocephalic, atraumatic. EYES: PERRLA/EOMI, conjunctivae clear. NOSE: Normal no drainage Mouth: Extensive dental decay and multiple tooth extractions NECK: Supple. No adenopathy, no masses. RESPIRATORY: Decreased lung sounds bilaterally, no significant wheeze CARDIOVASCULAR: Regular rate and rhythm without murmurs rubs or gallops. ABDOMINAL: Soft, nontender, nondistended, normal bowel sounds MUSCULOSKELETAL: Moves all extremities. Strength/ROM intact, No edema, No calf tenderness. NEURO: Alert. Cranial nerves II through XII intact. Good gait. Good coordination SKIN: Warm, dry. Normal Color Objective Data Vital Signs Vital Signs: Vital Signs - 24 hr 06/02/25 09:17 06/02/25 09:17 06/02/25 10:00 Temperature Pulse Rate 110 H 110 H 100 Respiratory Rate Blood Pressure 104/60 104/60 101/65 Pulse Oximetry Oxygen Delivery Oxygen Flow Rate 06/02/25 10:00 06/02/25 12:00 06/02/25 12:00 Temperature Pulse Rate 122 H 94 97 Respiratory Rate Blood Pressure 97/56 L Pulse Oximetry Oxygen Delivery Oxygen Flow Rate 06/02/25 12:16 06/02/25 13:19 06/02/25 13:26 Temperature 98.4 F 98.1 F Pulse Rate 94 92 92 Respiratory Rate 18 Blood Pressure 97/56 L 118/49 L 118/49 L Pulse Oximetry 93 92 Oxygen Delivery Oxygen Flow Rate 06/02/25 14:00 06/02/25 15:26 06/02/25 16:00 Temperature Pulse Rate 92 90 86 Respiratory Rate Blood Pressure 121/84 Pulse Oximetry Oxygen Delivery Oxygen Flow Rate 06/02/25 16:12 06/02/25 16:13 06/02/25 18:00 Temperature 97.7 F Pulse Rate 90 89 100 Respiratory Rate 20 Blood Pressure 121/84 Pulse Oximetry 96 Oxygen Delivery Oxygen Flow Rate 06/02/25 19:50 06/02/25 20:00 06/02/25 20:00 Temperature 97.9 F Pulse Rate 93 86 Respiratory Rate 20 Blood Pressure 110/64 Pulse Oximetry 94 94 Oxygen Delivery Nasal Cannula Oxygen Flow Rate 2 06/02/25 20:30 06/02/25 22:00 06/02/25 23:05 Temperature Pulse Rate 94 Respiratory Rate Blood Pressure Pulse Oximetry 96 98 Oxygen Delivery Nasal Cannula Nasal Cannula Oxygen Flow Rate 2 2 06/02/25 23:11 06/03/25 00:00 06/03/25 02:00 Temperature 98.1 F Pulse Rate 94 91 88 Respiratory Rate 20 Blood Pressure 115/55 L Pulse Oximetry 97 Oxygen Delivery Oxygen Flow Rate 06/03/25 04:00 06/03/25 04:00 06/03/25 05:13 Temperature 98.6 F Pulse Rate 92 91 Respiratory Rate 18 Blood Pressure 111/51 L Pulse Oximetry 97 95 Oxygen Delivery Nasal Cannula Oxygen Flow Rate 2 06/03/25 06:00 06/03/25 08:13 06/03/25 08:24 Temperature 97.9 F Pulse Rate 90 92 Respiratory Rate 20 Blood Pressure 110/59 L Pulse Oximetry 93 96 Oxygen Delivery Nasal Cannula Oxygen Flow Rate 2 06/03/25 08:32 Temperature Pulse Rate 92 Respiratory Rate Blood Pressure Pulse Oximetry Oxygen Delivery Oxygen Flow Rate Intake/Output Intake/Output: Intake & Output 05/31/25 06/01/25 06/02/25 06/03/25 23:59 23:59 23:59 23:59 Intake Total 2313.3 2550.6 2092.8 550 Output Total 1050 2600 800 Balance 1263.3 -49.4 1292.8 550 Meds/Results Medications: Active Medications Generic Name Dose Route Start Last Admin Trade Name Freq PRN Reason Stop Dose Admin Acetaminophen 650 mg 05/26/25 18:40 05/27/25 09:59 Acetaminophen 325 Mg Tablet PO 650 mg Q4H PRN Administration Mild Pain (1-3) or Fever Hydrocodone Bitart/Acetaminophen 1 tab 05/27/25 20:59 05/31/25 11:01 Hydrocodone/Acetaminophen (*Crx) 5-325 Mg Tablet PO 1 tab Q6H PRN Administration Pain Rated 4-10 Amiodarone HCl 200 mg 06/02/25 17:00 06/03/25 08:32 Amiodarone Hcl 200 Mg Tablet PO 200 mg BID IRENE Administration Amitriptyline HCl 150 mg 05/27/25 21:00 06/02/25 22:12 Amitriptyline Hcl 25 Mg Tablet PO 150 mg HS IRENE Administration Azithromycin 500 mg 06/02/25 09:00 06/03/25 08:32 Azithromycin 500 Mg Tablet PO 06/08/25 09:01 500 mg DAILY IRENE Administration Benzonatate 200 mg 05/28/25 14:03 Benzonatate 100 Mg Capsule PO TID PRN Cough Bupropion HCl 150 mg 05/26/25 21:15 06/02/25 22:12 Bupropion Hcl Xl (24 Hr) 150 Mg Tabcr PO 150 mg HS IRENE Administration Buspirone HCl 10 mg 06/02/25 21:00 06/03/25 08:32 Buspirone Hcl 10 Mg Tablet PO 10 mg Q12HR IRENE Administration Calcium Citrate 2 tablet 06/02/25 21:00 06/03/25 08:32 Calcium Citrate 315 Mg/Vitamin D 6.25 Mcg (250 Units) Tab PO 2 tablet Q12HR IRENE Administration Diazepam 5 mg 05/30/25 09:56 05/31/25 12:03 Diazepam Inj (*Crx) 10 Mg/2 Ml Syringe IV PUSH 5 mg Q8HR PRN Administration Muscle Spasm Diltiazem HCl 240 mg 05/30/25 09:00 06/03/25 08:32 Diltiazem Hcl Cd 120 Mg Cap.24hr PO 240 mg QAM IRENE Administration Diphenhydramine HCl 25 mg 05/29/25 13:09 Diphenhydramine Hcl Cap 25 Mg Capsule PO Q6H PRN Itching Docusate Sodium 100 mg 06/02/25 09:20 06/03/25 08:32 Docusate Sodium 100 Mg Capsule PO 100 mg Q12HR IRENE Administration Furosemide 20 mg 05/29/25 09:00 06/03/25 08:32 Furosemide 20 Mg Tablet PO 20 mg DAILY IRENE Administration Gabapentin 800 mg 05/26/25 21:15 06/03/25 08:31 Gabapentin 400 Mg Capsule PO 800 mg Q12HR IRENE Administration Guaifenesin 1,200 mg 05/26/25 21:40 06/03/25 08:31 Guaifenesin 12 Hr 600 Mg Tabcr PO 1,200 mg Q12HR IRENE Administration Ceftriaxone Sodium 1 gm/ 50 mls @ 100 mls/hr 05/31/25 10:00 06/02/25 09:04 Sodium Chloride IVPB 100 mls/hr Q24H IRENE Administration Ketorolac Tromethamine 30 mg 05/30/25 10:25 06/01/25 22:08 Ketorolac 30 Mg/Ml Vial (*Bkc) IV PUSH 30 mg Q6H PRN Administration Pain Rated 4-6 Levothyroxine Sodium 75 mcg 05/27/25 06:30 06/03/25 06:28 Levothyroxine Sodium 75 Mcg Tablet PO 75 mcg DAILY@0630 IRENE Administration Lidocaine 1 patch 05/28/25 14:05 06/03/25 08:35 Lidocaine 5% Patch TRANSDERM Not Given DAILY IRENE Miscellaneous Information 1 each 06/02/25 00:01 Please Clarify How Much Bupropion Xl Patient Is Taking. It Was Entered As 150 Mg Daily But XX 07/02/25 00:00 CLARIFY IRENE Multivitamins/Minerals 1 tab 05/27/25 09:00 06/03/25 08:31 Multivitamins /C Lutein (Centrum Silver) Tablet *Bkc PO 1 tab DAILY IRENE Administration Ondansetron HCl 4 mg 05/26/25 21:08 Ondansetron Inj 4 Mg/2 Ml Vial IV PUSH Q6H PRN Nausea And Vomiting Pantoprazole Sodium 40 mg 05/27/25 09:00 06/03/25 08:31 Pantoprazole 40 Mg Tablet PO 40 mg QAM IRENE Administration Polyethylene Glycol 17 gm 06/02/25 09:20 06/03/25 08:30 Polyethylene Glycol 3350 17 Gm Powd.Pack PO Not Given QAM IRENE Quetiapine Fumarate 100 mg 05/26/25 21:40 06/02/25 22:11 Quetiapine Fumarate 100 Mg Tablet PO 100 mg HS IRENE Administration Quetiapine Fumarate 50 mg 05/26/25 21:40 06/02/25 22:11 Quetiapine Fumarate 25 Mg Tablet PO 50 mg HS IRENE Administration Rivaroxaban 20 mg 05/30/25 17:00 06/02/25 16:12 Rivaroxaban 20 Mg Tablet PO 20 mg DAILY@1700 IRENE Administration Sodium Chloride 1 spray 05/29/25 13:08 05/29/25 19:46 Saline 0.65% Slim Soln 44 Ml Btl NASAL 1 spray Q6HR PRN Administration Congestion Vitamin D 125 mcg 05/27/25 09:00 06/03/25 08:32 Cholecalciferol (Vitamin D3) 125 Mcg (5,000 Units) Tablet PO 125 mcg DAILY IRENE Administration Radiology Results: ITS Impressions Chest CTA 05/26/25 18:29 IMPRESSION: 1. Extensive bilateral airspace disease, compatible with pneumonia, right greater than left. 2: Enlarged mediastinal and right hilar lymph nodes, likely reactive. Abdomen Ultrasound 05/27/25 09:25 IMPRESSION: 1. Hepatomegaly, with steatosis and/or diffuse hepatocellular disease. 2. Cirrhosis not excluded. Shoulder CT 05/30/25 11:01 IMPRESSION: 1. Polyarticular osteoarthritis. 2. Diffuse right lung disease, consistent with pneumonia. 3. Small right pleural effusion. Cervical Spine CT 05/30/25 11:04 IMPRESSION: 1. Severe cervical spondylosis, stable from 12/15/2024. 2. Anterior fusion procedure from C4 to C6. 3. Bilateral pneumonia. Chest X-Ray 06/02/25 07:44 Impression: 1: Asymmetric right-sided airspace disease, compatible with pneumonia without significant change. Labs Labs: Laboratory Results - last 24 hr 06/02/25 06/03/25 13:19 05:10 WBC 7.6 RBC 3.47 L Hgb 11.2 L Hct 35.9 L MCV 103.5 H MCH 32.3 MCHC 31.2 L RDW 14.6 H Plt Count 300 MPV 9.0 Sodium 137 Potassium 4.0 Chloride 102 Carbon Dioxide 32 H Anion Gap 3 L BUN 18 H Creatinine 1.10 H Estim Creat Clear Calc 62 Estimated GFR 50 L Glucose 86 POC Capillary Glucose 161 H Calcium 8.5 Magnesium 2.1 Total Bilirubin 0.1 L AST 25 ALT 29 Alkaline Phosphatase 104 Total Protein 5.5 L Albumin 2.9 L
--- NOTE | 2025-06-03 09:46 | P.PNCA_ITS ---
Progress Note: A&P Assessment and Plan (1) Atrial fibrillation with rapid ventricular response: Code(s): I48.91 - Unspecified atrial fibrillation Status: Acute Assessment and Plan: Atrial fibrillation with rapid ventricular response, rates in the 120s to 140s. This is a new diagnosis in the setting of acute illness with pneumonia. Discussed this diagnosis with her including pathophysiology, management strategy is, and risks/complications. 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 (3) Community acquired pneumonia: Code(s): J18.9 - Pneumonia, unspecified organism Status: Acute Assessment and Plan: Antibiotics and other management per hospitalist. Subjective Date/time seen: 06/03/25 09:46 Interval history: Patient seen for evaluation of AFib with RVR Patient complains of shortness of breath with mild activity Telemetry AFib RVR heart rate 101 110 Date of service 05/30/2025: She continues to have tachycardia and feels palpitations intermittently. No chest pain. Shortness of breath is improving. Date of service 05/31/2025: Heart rate improving on amiodarone but remains above goal. Shortness of breath improving. Feeling better overall. Date of service 06/01/2025: Patient is sitting up in chair. Feeling improved. Still has shortness of breath with minimal activity. No chest pain or pressure. No dizziness or palpitations. Date of service 06/02/25: Patient is sitting up in bed. She states she is overall feeling improved. Her SOB has lessened. No chest pain or pressure. Denies any palpitations at this time. She continues to have elevated HR with minimal act ivity. Date of service 06/03/25: Patient is sitting up on edge of bed. On room air this am and feeling improved. She would like to go home today. Denies any chest pain or pressure. Shortness of breath better. No dizziness or palpitations Review of Systems Review of Systems: All systems reviewed & are unremarkable except as noted in HPI and below Exam Narrative: General: Alert and oriented. NAD Respiratory: decreased in bases CV: S1, S2 GI: abd round non-tender Ext: trace bilateral LE edema Objective Data Vital Signs Vital Signs: Vital Signs - 24 hr 06/02/25 10:00 06/02/25 10:00 06/02/25 12:00 Temperature Pulse Rate 100 122 H 94 Respiratory Rate Blood Pressure 101/65 97/56 L Pulse Oximetry Oxygen Delivery Oxygen Flow Rate 06/02/25 12:00 06/02/25 12:16 06/02/25 13:19 Temperature 36.9 C 36.7 C Pulse Rate 97 94 92 Respiratory Rate 18 Blood Pressure 97/56 L 118/49 L Pulse Oximetry 93 92 Oxygen Delivery Oxygen Flow Rate 06/02/25 13:26 06/02/25 14:00 06/02/25 15:26 Temperature Pulse Rate 92 92 90 Respiratory Rate Blood Pressure 118/49 L 121/84 Pulse Oximetry Oxygen Delivery Oxygen Flow Rate 06/02/25 16:00 06/02/25 16:12 06/02/25 16:13 Temperature 36.5 C Pulse Rate 86 90 89 Respiratory Rate 20 Blood Pressure 121/84 Pulse Oximetry 96 Oxygen Delivery Oxygen Flow Rate 06/02/25 18:00 06/02/25 19:50 06/02/25 20:00 Temperature 36.6 C Pulse Rate 100 93 Respiratory Rate 20 Blood Pressure 110/64 Pulse Oximetry 94 94 Oxygen Delivery Nasal Cannula Oxygen Flow Rate 2 06/02/25 20:00 06/02/25 20:30 06/02/25 22:00 Temperature Pulse Rate 86 94 Respiratory Rate Blood Pressure Pulse Oximetry 96 Oxygen Delivery Nasal Cannula Oxygen Flow Rate 2 06/02/25 23:05 06/02/25 23:11 06/03/25 00:00 Temperature 36.7 C Pulse Rate 94 91 Respiratory Rate 20 Blood Pressure 115/55 L Pulse Oximetry 98 97 Oxygen Delivery Nasal Cannula Oxygen Flow Rate 2 06/03/25 02:00 06/03/25 04:00 06/03/25 04:00 Temperature Pulse Rate 88 92 Respiratory Rate Blood Pressure Pulse Oximetry 97 Oxygen Delivery Nasal Cannula Oxygen Flow Rate 2 06/03/25 05:13 06/03/25 06:00 06/03/25 08:13 Temperature 37.0 C 36.6 C Pulse Rate 91 90 92 Respiratory Rate 18 20 Blood Pressure 111/51 L 110/59 L Pulse Oximetry 95 93 Oxygen Delivery Oxygen Flow Rate 06/03/25 08:24 06/03/25 08:32 Temperature Pulse Rate 92 Respiratory Rate Blood Pressure Pulse Oximetry 96 Oxygen Delivery Nasal Cannula Oxygen Flow Rate 2 Intake/Output Intake/Output: Intake & Output 05/31/25 06/01/25 06/02/25 06/03/25 23:59 23:59 23:59 23:59 Intake Total 2313.3 2550.6 2092.8 550 Output Total 1050 2600 800 Balance 1263.3 -49.4 1292.8 550 Meds/Results Medications: Active Medications Generic Name Dose Route Start Last Admin Trade Name Freq PRN Reason Stop Dose Admin Acetaminophen 650 mg 05/26/25 18:40 05/27/25 09:59 Acetaminophen 325 Mg Tablet PO 650 mg Q4H PRN Administration Mild Pain (1-3) or Fever Hydrocodone Bitart/Acetaminophen 1 tab 05/27/25 20:59 05/31/25 11:01 Hydrocodone/Acetaminophen (*Crx) 5-325 Mg Tablet PO 1 tab Q6H PRN Administration Pain Rated 4-10 Amiodarone HCl 200 mg 06/02/25 17:00 06/03/25 08:32 Amiodarone Hcl 200 Mg Tablet PO 200 mg BID IRENE Administration Amitriptyline HCl 150 mg 05/27/25 21:00 06/02/25 22:12 Amitriptyline Hcl 25 Mg Tablet PO 150 mg HS IRENE Administration Azithromycin 500 mg 06/02/25 09:00 06/03/25 08:32 Azithromycin 500 Mg Tablet PO 06/08/25 09:01 500 mg DAILY IRENE Administration Benzonatate 200 mg 05/28/25 14:03 Benzonatate 100 Mg Capsule PO TID PRN Cough Bupropion HCl 150 mg 05/26/25 21:15 06/02/25 22:12 Bupropion Hcl Xl (24 Hr) 150 Mg Tabcr PO 150 mg HS IRENE Administration Buspirone HCl 10 mg 06/02/25 21:00 06/03/25 08:32 Buspirone Hcl 10 Mg Tablet PO 10 mg Q12HR IRENE Administration Calcium Citrate 2 tablet 06/02/25 21:00 06/03/25 08:32 Calcium Citrate 315 Mg/Vitamin D 6.25 Mcg (250 Units) Tab PO 2 tablet Q12HR IRENE Administration Diazepam 5 mg 05/30/25 09:56 05/31/25 12:03 Diazepam Inj (*Crx) 10 Mg/2 Ml Syringe IV PUSH 5 mg Q8HR PRN Administration Muscle Spasm Diltiazem HCl 240 mg 05/30/25 09:00 06/03/25 08:32 Diltiazem Hcl Cd 120 Mg Cap.24hr PO 240 mg QAM IRENE Administration Diphenhydramine HCl 25 mg 05/29/25 13:09 Diphenhydramine Hcl Cap 25 Mg Capsule PO Q6H PRN Itching Docusate Sodium 100 mg 06/02/25 09:20 06/03/25 08:32 Docusate Sodium 100 Mg Capsule PO 100 mg Q12HR IRENE Administration Furosemide 20 mg 05/29/25 09:00 06/03/25 08:32 Furosemide 20 Mg Tablet PO 20 mg DAILY IRENE Administration Gabapentin 800 mg 05/26/25 21:15 06/03/25 08:31 Gabapentin 400 Mg Capsule PO 800 mg Q12HR IRENE Administration Guaifenesin 1,200 mg 05/26/25 21:40 06/03/25 08:31 Guaifenesin 12 Hr 600 Mg Tabcr PO 1,200 mg Q12HR IRENE Administration Ceftriaxone Sodium 1 gm/ 50 mls @ 100 mls/hr 05/31/25 10:00 06/02/25 09:04 Sodium Chloride IVPB 100 mls/hr Q24H IRENE Administration Ketorolac Tromethamine 30 mg 05/30/25 10:25 06/01/25 22:08 Ketorolac 30 Mg/Ml Vial (*Bkc) IV PUSH 30 mg Q6H PRN Administration Pain Rated 4-6 Levothyroxine Sodium 75 mcg 05/27/25 06:30 06/03/25 06:28 Levothyroxine Sodium 75 Mcg Tablet PO 75 mcg DAILY@0630 IRENE Administration Lidocaine 1 patch 05/28/25 14:05 06/03/25 08:35 Lidocaine 5% Patch TRANSDERM Not Given DAILY [facility] Miscellaneous Information 1 each 06/02/25 00:01 Please Clarify How Much Bupropion Xl Patient Is Taking. It Was Entered As 150 Mg Daily But XX 07/02/25 00:00 CLARIFY IRENE Multivitamins/Minerals 1 tab 05/27/25 09:00 06/03/25 08:31 Multivitamins /C Lutein (Centrum Silver) Tablet *Bkc PO 1 tab DAILY IRENE Administration Ondansetron HCl 4 mg 05/26/25 21:08 Ondansetron Inj 4 Mg/2 Ml Vial IV PUSH Q6H PRN Nausea And Vomiting Pantoprazole Sodium 40 mg 05/27/25 09:00 06/03/25 08:31 Pantoprazole 40 Mg Tablet PO 40 mg QAM IRENE Administration Polyethylene Glycol 17 gm 06/02/25 09:20 06/03/25 08:30 Polyethylene Glycol 3350 17 Gm Powd.Pack PO Not Given QAM IRENE Quetiapine Fumarate 100 mg 05/26/25 21:40 06/02/25 22:11 Quetiapine Fumarate 100 Mg Tablet PO 100 mg HS IRENE Administration Quetiapine Fumarate 50 mg 05/26/25 21:40 06/02/25 22:11 Quetiapine Fumarate 25 Mg Tablet PO 50 mg HS IRENE Administration Rivaroxaban 20 mg 05/30/25 17:00 06/02/25 16:12 Rivaroxaban 20 Mg Tablet PO 20 mg DAILY@1700 IRENE Administration Sodium Chloride 1 spray 05/29/25 13:08 05/29/25 19:46 Saline 0.65% Slim Soln 44 Ml Btl NASAL 1 spray Q6HR PRN Administration Congestion Vitamin D 125 mcg 05/27/25 09:00 06/03/25 08:32 Cholecalciferol (Vitamin D3) 125 Mcg (5,000 Units) Tablet PO 125 mcg DAILY IRENE Administration Radiology Results: ITS Impressions Chest CTA 05/26/25 18:29 IMPRESSION: 1. Extensive bilateral airspace disease, compatible with pneumonia, right greater than left. 2: Enlarged mediastinal and right hilar lymph nodes, likely reactive. Abdomen Ultrasound 05/27/25 09:25 IMPRESSION: 1. Hepatomegaly, with steatosis and/or diffuse hepatocellular disease. 2. Cirrhosis not excluded. Shoulder CT 05/30/25 11:01 IMPRESSION: 1. Polyarticular osteoarthritis. 2. Diffuse right lung disease, consistent with pneumonia. 3. Small right pleural effusion. Cervical Spine CT 05/30/25 11:04 IMPRESSION: 1. Severe cervical spondylosis, stable from 12/15/2024. 2. Anterior fusion procedure from C4 to C6. 3. Bilateral pneumonia. Chest X-Ray 06/02/25 07:44 Impression: 1: Asymmetric right-sided airspace disease, compatible with pneumonia without significant change. Labs Labs: Laboratory Results - last 24 hr 06/02/25 06/03/25 13:19 05:10 WBC 7.6 RBC 3.47 L Hgb 11.2 L Hct 35.9 L MCV 103.5 H MCH 32.3 MCHC 31.2 L RDW 14.6 H Plt Count 300 MPV 9.0 Sodium 137 Potassium 4.0 Chloride 102 Carbon Dioxide 32 H Anion Gap 3 L BUN 18 H Creatinine 1.10 H Estim Creat Clear Calc 62 Estimated GFR 50 L Glucose 86 POC Capillary Glucose 161 H Calcium 8.5 Magnesium 2.1 Total Bilirubin 0.1 L AST 25 ALT 29 Alkaline Phosphatase 104 Total Protein 5.5 L Albumin 2.9 L
--- NOTE | 2025-06-03 10:19 | PM.PNPUL ---
Progress Note: A&P Assessment and Plan (1) Community acquired pneumonia: Code(s): J18.9 - Pneumonia, unspecified organism Status: Acute Assessment and Plan: Patient presents with 36 hours of chills, rigors, shortness of breath, rattling in the chest, shortness of breath with a leukocytosis 14.3, bandemia 5%, CT angiogram of the chest with no PE but extensive patchy consolidative ground-glass infiltrates throughout the entire right lung, left upper lobe and left lower lobe and now with worsening oxygenation requiring Airvo 30 L and 65% FiO2. Her CRP is 29.5. Initial COVID, RSV, influenza RT PCR and assay negative. MRSA RT PCR negative today. patient has a severe community-acquired pneumonia. She is afebrile, she feels better than she did when she presented, no longer has hemoptysis, leukocytosis has resolved. 05/28/25: Plan: At this time I will continue ceftriaxone and change the azithromycin to IV. She has severe community-acquired pneumonia as she is requiring high-flow nasal cannula and her CRP is 29.5. Her pneumonia severity index score is 50. I will initiate hydrocortisone 50 mg IV q.6 hours. Patient has a tachy arrhythmia and I will discontinue beta agonist. I will continue ipratropium as she says the nebulized treatments were helping her. I will continue budesonide 500 mcg q.12 hours. I will repeat COVID, influenza, RSV RT PCR assay, send respiratory pathogen panel, urine for Legionella antigen, urine for pneumococcal antigen, check serum mycoplasma IgM levels on 05/28/2025. If the patient should decompensate will consider her a ceftriaxone and azithromycin failure and change her to meropenem and Levaquin. 05/29/2025: Overall the patient tells me she is the same as yesterday but a 1000 times better than when she presented. Her shortness of breath at rest and dyspnea on exertion or unchanged. She states her cough is worse but is now dry which is better. When I enter the room she was on Airvo 30 L 65% FiO2 with saturations 94%. I decreased her to nasal cannula oxygen and sequentially decreased her to 7 L nasal cannula her saturations were 92%. She is afebrile. White blood cell count 7.4, creatinine 0.76. CRP has improved from 20/9 0.5 on 05/28/2025 to a value of 19.8 today. Procalcitonin has improved from 1.6 on 05/28/2025 to a value of 1.0 today. Repeat COVID, influenza, RSV RT PCR assay on 05/28/2020 5-. Plan: Overall the patient continues to improve. Her leukocytosis has resolved, she is afebrile, her oxygenation has improved and her CRP and procalcitonin are decreasing on ceftriaxone and azithromycin, both started 05/26/2025. Will continue. Continue Solu-Medrol 50 mg IV q.6 hours (day 2). Blood cultures, respiratory pathogen panel, urine Legionella, urine pneumococcal and serum IgM for mycoplasma all pending. I will check a chest x-ray on 05/30/2025. 05/30/2025: Patient tells me she is breathing better today. She has no rest shortness of breath. She is no longer feeling cold and clammy. Her cough is the same with no phlegm and no hemoptysis. Patient slept better last night. When I enter the room she was on 7 L nasal cannula saturations 97%. I decreased her to 4 L nasal cannula her saturations were 95%. White blood cell count 7.1, creatinine 0.68. Yesterday she is positive 1.4 L, cumulative she is positive 1.9 L. Her weight today is 124.1 kg. Chest x-ray today shows worsening consolidative infiltrates on the right. Patient remains in AFib with heart rates 130-155 when I was in the room. She had her diltiazem increased by Cardiology to 240 a day and digoxin was added today. She complains of right trapezius pain that was similar to her pain prior to her neck operation in August of 2024. After the operation this pain went away but returned to the hospital. She has no shoulder or clavicular pain. Ice helps. I gave her manual massage with minimal improvement. She has Minimal neck tenderness. to breathing does not make this pain worse. She is receiving Toradol. Plan: Patient continues to improve, she is no longer cold and clammy, her breathing is better. Her leukocytosis has resolved, her oxygenation has improved. Her chest x-ray shows more consolidation and I suspect this is atelectasis versus mucus plugging. I will add EzPAP and Cornet flutter valve. Once her heart rate is stabilized recommend out of bed to chair. Continue ceftriaxone and azithromycin both started 05/26/2025. I will decrease her Solu-Medrol to 25 mg IV q.6 hours, day 3 of steroids. Blood cultures negative. respiratory pathogen panel, urine Legionella, urine pneumococcal and serum IgM for mycoplasma all pending. 05/31/2025: Last night the patient continued with AFib and RVR was started on amiodarone. The patient tells me she continues to improve and is breathing normal at rest now. She has been bed-bound due to heart rate issues. She denies cough or hemoptysis. Her phlegm is thick. When I enter the room the patient was on 3 L nasal cannula saturations 92%. I decreased her to 2 L and her saturations were 90-91%. She is afebrile. White blood cell count 7.5, creatinine 0.88. Patient tells me she is scheduled for cardioversion today. Plan: patient continues to improve from her pneumonia. Continue ceftriaxone and azithromycin both started 05/26/2025 (day 5 antibiotics). I will decrease his Solu-Medrol to 25 mg IV q.12 hours, day 4 of steroids. Mycoplasma IgM negative. Respiratory pathogen, urine Legionella, urine pneumococcal pending. 06/01/2025 : Patient tells me her breathing continues to improve. Her breathing is now normal at rest. When she pivots to go to the bedside commode she had no shortness of breath but her heart rate did increase. She has a cough with no phlegm and no hemoptysis. Currently patient is on 2 L nasal cannula saturations 92%. She is afebrile. White blood cell count 6.4, creatinine 0.94. Yesterday she was positive 963 mL and cumulative she is positive 4.66 L since admission. Her weight today is 125 kg. Plan: patient continues to improve from her pneumonia. Continue ceftriaxone and azithromycin both started 05/26/2025 (day 6 antibiotics). I will decrease his Solu-Medrol to 25 mg IV qD, day 5 of steroids. last dose on 06/02/2025. Mycoplasma IgM negative. Respiratory pathogen could not be run because the RT PCR was inhibited, urine Legionella, urine pneumococcal pending. I will discontinue the budesonide nebulization continue ipratropium as she states this is helping her. I will check a portable chest x-ray on 06/02/2025. AFib with RVR being managed by Cardiology and hospitalist currently on diltiazem, amiodarone and Lasix 20 p.o. q.day. 06/02/2025: Patient says her breathing is normal at rest. She had no dyspnea on exertion when walking to the bedside chair or to the bathroom. She denies fever, chills, rigors. Her cough is normal. She produce phlegm 2 times yesterday which is improved. When I enter the room she was on 2 L nasal cannula saturations 95%. I placed her on room air and after 3 minutes she had saturations 88% and I placed her on 1 L nasal cannula her saturations were 95%. Her white blood cell count is 6.8, creatinine is 1.0. Chest x-ray today with continued right lung interstitial infiltrates with no change compared to 05/30/2025. Yesterday she was minus 49 mL. Cumulative she is positive 3.8 L since admission. Her weight today is 125.1 kg. Remains with AFib RVR with activity. Plan: patient continues to improve from her pneumonia. Continue ceftriaxone and azithromycin both started 05/26/2025 (day 7 antibiotics). I Have discontinued the Solu-Medrol after today's dose of 25 mg IV qD, day 6 of steroids. Mycoplasma IgM negative. Respiratory pathogen could not be run because the RT PCR was inhibited, urine Legionella, urine pneumococcal pending. I will discontinue the ipratropium nebulizer today. if the patient continues to improve from a pulmonary perspective patient is ready to be discharged 06/03/2025. 04/03/2025. Patient tells me she has no rest shortness of breath and no dyspnea on exertion when walking to the bathroom. She denies cough, she had 1 phlegm with a streak of blood. Denies fever chills or rigors. Room air saturations 90-93%. White blood cell count 7.6, creatinine 1.10. Yesterday she was positive 1.2 L, cumulative she is positive 5.5 L since admission. Her weight today is 125 kg. Patient tells me she is strong enough to go to Her sister's house. Plan: From a pulmonary perspective patient is ready to be discharged on these pulmonary medications: Levalbuterol 750 mg p.o. q.day x2 days. Guaifenesin 1200 mg p.o. b.i.d. p.r.n. congestion Oxygen at rest and with activity per formal home O2 assessment which I have ordered. Oxygen at night at 3 L nasal cannula. Follow-up with her PCP. Patient should have a chest x-ray in 6 weeks to reassess her infiltrates. As she continues to improve anticipate her oxygen requirements will diminish and she can have a 6 minute walk or home O2 assessment when she is tolerating room air as an outpatient. Discussed with Dr. Harris. Will follow with you. (2) Acute respiratory failure with hypoxia: Code(s): J96.01 - Acute respiratory failure with hypoxia Status: Acute Assessment and Plan: Patient initially on no oxygen at home with no respiratory limitations. She has had 2 ABGs the last on 10 L with pH of 7.44/38/55. There is no evidence of hypercarbic respiratory failure. 05/26 16:00 room air, sats 93% 05/26 21:00 4 L NC, sats 92% 05/27 08:00 4 L NC, sats 91% 05/27 20:00 4 L NC, sats 90% 05/28 05:30 10 L NC, sats 86%, ABG 7.44/38.55 05/28 6:15 Airvo 30 L, 65%, sats 93% 05/28 11:00 Airvo 30 L, 65%, sats 95% 05/28 20:00 Airvo 30 L, 65%, sats 95% 05/29 07:45 Airvo 30 L, 65%, sats 94% 05/29 11:20 7 L NC, sats 92% 05/29 20:15 7 L NC, sats 91% 05/30 10:30 4 L NC, sats 95% 05/30 20:00 2 L NC, sats 95% 05/31 08:15 2 L NC, sats 91% 06/01 07:45 2 L NC, sats 92% 06/02 08:30 1 L NC, sats 95% 06/03 09:00 RA, sats 90-93% goal saturation 90-94%, adjust oxygen accordingly. 06/01/2025: I will perform overnight oximetry on 2 L nasal cannula. She will need a home O2 assessment prior to discharge. 06/02/25: Patient had an overnight oximetry on 2 L nasal cannula with recording duration of 6 hours and 45 minutes. Average saturation 93%. Low saturation 78%. Time with saturation less than or equal to 88% was 14 minutes. Oxygen desaturation index was 6.1. plan: I will repeat overnight oximetry on 3 L tonight. 06/03/25: Patient had an overnight oximetry on 3 L with recording duration 6 hours and 6 minutes. Average saturation 94%. Low saturation 80%. Time with saturation less than or equal to 88% was 3 minutes. Oxygen desaturation index 2.7. Plan: Discharge patient on 3 L nasal cannula at night and oxygen at rest and with activity per formal home O2 assessment later today. Subjective Date/time seen: 06/03/25 10:19 Interval history: 05/28/25 This is a new pulmonary consult for pneumonia with hypoxemic respiratory failure. 65-year-old with a history of hypertension, gastric bypass with revision in 2012, GERD, gout, hypothyroidism, neuropathy, chronic knee pain. Patient has no history of asthma, COPD, recurrent pneumonias. Patient is a never smoker. She was exposed to secondhand smoke from both of her parents and from [id number]. 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 At baseline the patient tells me she can walk 1 and half blocks but has to stop for knee pain rather than any breathing issues. She has no respiratory limitations in her activities of daily living. She is on no home O2. Patient is in the process of extensive dental work and on 05/24/2025 she had 6 teeth pulled under local anesthesia. Prior to this procedure and after this procedure she had no breathing problems. She was in pain but had no cough or phlegm production. She slept that night. On 05/25/2025 the patient woke up and had rattling in her chest, chills, rigors, shortness of breath. Patient states her phlegm was read and could have been blood. She was fatigued. She went to bed and slept all night and most of the morning on 05/26/2025. 05/26/25: She woke up with worse headache of her life and presented to the emergency department. In the emergency department her blood pressure was 122/68, heart rate 105, respirations 22, room air saturations 93%. Her weight was 113.5 she was afebrile. White blood cell count 14.3, bands were 5%, no eosinophils, creatinine 0.67, COVID, influenza, RSV RT PCR assay negative. Chest x-ray with bilateral pneumonia. CT angiogram of the chest with no PE, patchy ground-glass consolidative infiltrates throughout all the right lung, lasts pronounced in the left upper lobe and left lower lobe. Patient was placed on Rocephin and azithromycin. 05/27/2025. Patient had mild improvement. At 8:00 a.m. she was on 4 L nasal cannula saturations 91%. Her white blood cell count was 12.2 she was afebrile. ABG on 4 L was 7.43/39/60. Patient gone into AFib RVR and was placed on metoprolol and Xarelto per Cardiology. At 8:00 p.m. patient was on 4 L nasal cannula saturations 90%. 05/28/2025. Overall patient feels a little worse than yesterday she is more tired, she states that she has 25% back to her normal and improved since admission. She has more coughing today but less phlegm. She has no hemoptysis and yellow phlegm. If 5:30 a.m. she was on 10 L nasal cannula with desats and an ABG of 7.44/38/55 and was placed on Airvo 30 L and 65% with saturations 95%. white blood cell count is 9.2, creatinine is 0.82, CRP is 29.5, BNP is 4520, procalcitonin is 1.6. chest x-ray today unchanged compared to 05/27/2025 with diffuse infiltrates throughout the lower right lung field with decreased lung volumes on the right minimal infiltrates in the left base. 05/29/2025: Overall the patient tells me she is the same as yesterday but a 1000 times better than when she presented. Her shortness of breath at rest and dyspnea on exertion or unchanged. She states her cough is worse but is now dry which is better. When I enter the room she was on Airvo 30 L 65% FiO2 with saturations 94%. I decreased her to nasal cannula oxygen and sequentially decreased her to 7 L nasal cannula her saturations were 92%. She is afebrile. White blood cell count 7.4, creatinine 0.76. CRP has improved from 20/9 0.5 on 05/28/2025 to a value of 19.8 today. Procalcitonin has improved from 1.6 on 05/28/2025 to a value of 1.0 today. 05/30/2025: Patient tells me she is breathing better today. She has no rest shortness of breath. She is no longer feeling cold and clammy. Her cough is the same with no phlegm and no hemoptysis. Patient slept better last night. When I enter the room she was on 7 L nasal cannula saturations 97%. I decreased her to 4 L nasal cannula her saturations were 95%. White blood cell count 7.1, creatinine 0.68. Yesterday she is positive 1.4 L, cumulative she is positive 1.9 L. Her weight today is 124.1 kg. Chest x-ray today shows worsening consolidative infiltrates on the right. Patient remains in AFib with heart rates 130-155 when I was in the room. She had her diltiazem increased by Cardiology to 240 a day and digoxin was added today. She complains of right trapezius pain that was similar to her pain prior to her neck operation in August of 2024. After the operation this pain went away but returned to the hospital. She has no shoulder or clavicular pain. Ice helps. I gave her manual massage with minimal improvement. She has Minimal neck tenderness. to breathing does not make this pain worse. She is receiving Toradol. CT cervical spine without acute changes, shoulder x-ray without acute changes. 05/31/2025: Last night the patient continued with AFib and RVR was started on amiodarone. The patient tells me she continues to improve and is breathing normal at rest now. She has been bed-bound due to heart rate issues. She denies cough or hemoptysis. Her phlegm is thick. When I enter the room the patient was on 3 L nasal cannula saturations 92%. I decreased her to 2 L and her saturations were 90-91%. She is afebrile. White blood cell count 7.5, creatinine 0.88. Patient tells me she is scheduled for cardioversion today. 06/01/2025 : Patient tells me her breathing continues to improve. Her breathing is now normal at rest. When she pivots to go to the bedside commode she had no shortness of breath but her heart rate did increase. She has a cough with no phlegm and no hemoptysis. Currently patient is on 2 L nasal cannula saturations 92%. She is afebrile. White blood cell count 6.4, creatinine 0.94. Yesterday she was positive 963 mL and cumulative she is positive 4.66 L since admission. Her weight today is 125 kg. 06/02/2025: Patient says her breathing is normal at rest. She had no dyspnea on exertion when walking to the bedside chair or to the bathroom. She denies fever, chills, rigors. Her cough is normal. She produce phlegm 2 times yesterday which is improved. When I enter the room she was on 2 L nasal cannula saturations 95%. I placed her on room air and after 3 minutes she had saturations 88% and I placed her on 1 L nasal cannula her saturations were 95%. Her white blood cell count is 6.8, creatinine is 1.0. Chest x-ray today with continued right lung interstitial infiltrates with no change compared to 05/30/2025. Yesterday she was minus 49 mL. Cumulative she is positive 3.8 L since admission. Her weight today is 125.1 kg. Patient had an overnight oximetry on 2 L nasal cannula with recording duration of 6 hours and 45 minutes. Average saturation 93%. Low saturation 78%. Time with saturation less than or equal to 88% was 14 minutes. Oxygen desaturation index was 6.1. Remains with AFib RVR with activity. Later in the day patient converted to sinus. 04/03/2025. Patient tells me she has no rest shortness of breath and no dyspnea on exertion when walking to the bathroom. She denies cough, she had 1 phlegm with a streak of blood. Denies fever chills or rigors. Room air saturations 90-93%. White blood cell count 7.6, creatinine 1.10. Yesterday she was positive 1.2 L, cumulative she is positive 5.5 L since admission. Her weight today is 125 kg. Patient had an overnight oximetry on 3 L with recording duration 6 hours and 6 minutes. Average saturation 94%. Low saturation 80%. Time with saturation less than or equal to 88% was 3 minutes. Oxygen desaturation index 2.7. Patient tells me she is strong enough to go to Her sister's house. DATA: 06/02/25: overnight oximetry on 2 L nasal cannula with recording duration of 6 hours and 45 minutes. Average saturation 93%. Low saturation 78%. Time with saturation less than or equal to 88% was 14 minutes. Oxygen desaturation index was 6.1. 05/27/25: Echo Summary Summary 1. Complete two-dimensional, color flow and Doppler transthoracic echocardiogram is performed. 2. Small amount of mitral and tricuspid regurgitation. 3. Otherwise structurally normal appearing heart. 4. Atrial fibrillation. Left Ventricle Left ventricular chamber dimension is normal. Left ventricular systolic function is normal, estimated at 65-70. Right Ventricle Right ventricular chamber dimension is normal. Left Atria Left atrial chamber dimension is normal. Right Atria Right atrial chamber dimension is normal. Tricuspid peak gradient 26. 05/27/2025: ULTRASOUND ABDOMEN LIMITED (RIGHT UPPER QUADRANT) Clinical History: Transaminitis Comparison: CT chest 1 day prior Technique: Right upper quadrant sonography Findings: Liver: Normal size. Normal echotexture. No intrahepatic biliary ductal dilatation. Normal hepatopedal flow main portal vein. Micronodular contour. Common Duct: 7 mm. Gallbladder: Removed. Pancreas: Obscured by bowel gas. Right kidney: Unremarkable. Retrohepatic IVC: Unremarkable. IMPRESSION: 1. Hepatomegaly, with steatosis and/or diffuse hepatocellular disease. 2. Cirrhosis not excluded. 05/26/2025: EXAMINATION: CTA chest PE protocol DATE: 05/26/2025 18:29 CDT INDICATION: Pneumonia. Hemoptysis. TECHNIQUE: Computed tomographic angiography (CTA) of the chest was performed with 100 mL Omnipaque-350 intravenous contrast. The dose-length product was 885.28 mGy-cm. Maximum intensity projection 3D-reconstructions of the aorta and other arteries were constructed by the technologist on a separate workstation. COMPARISON: Chest x-ray dated 05/26/2025. FINDINGS: Study is technically adequate without evidence for pulmonary embolism. There is right hilar and subcarinal lymphadenopathy, likely reactive. There are bilateral breast implants. No significant pleural or pericardial effusion. There is extensive bilateral airspace consolidation, more so on the right, consistent with pneumonia. Airspace disease is most confluent in the right lower lobe. No endobronchial lesions. No pneumothorax. No significant pleural or pericardial effusion. There is surgical changes in the left upper abdomen. IMPRESSION: 1. Extensive bilateral airspace disease, compatible with pneumonia, right greater than left. 2: Enlarged mediastinal and right hilar lymph nodes, likely reactive. 12/15/2024: CHEST RADIOGRAPH CLINICAL HISTORY: fall . COMPARISON: 10/23/2021 TECHNIQUE: Single portable view of the chest. FINDINGS Significant elevation of the right hemidiaphragm with adjacent compressive atelectasis. The remainder of the lungs are clear. Dorsal column stimulator device is noted. The remainder of the cardiomediastinal silhouette is otherwise unremarkable. IMPRESSION: Elevation of the right hemidiaphragm with adjacent compressive atelectasis. The remainder of the lungs are clear. Review of Systems Constitutional: Constitutional: Reports no additional constitutional complaints Eyes: Eyes: Reports no additional eye complaints ENT: Reports system reviewed and no additional complaints, except as documented Cardiovascular: Cardiovascular: Reports no additional cardiovascular complaints Respiratory: Respiratory: Reports no additional respiratory complaints Gastrointestinal: Gastrointestinal: Reports no additional gastrointestinal complaints Musculoskeletal: Musculoskeletal: Reports no additional musculoskeletal complaints Neurologic: Reports system reviewed and no additional complaints, except as documented Psychiatric: Psychiatric: Reports no additional psychiatric complaints Endocrine: Endocrine: Reports no additional endocrine complaints Hematologic/Lymphatic: Hematologic/Lymphatic: Reports no additional hematologic/lymphatic complaints Allergic/Immunologic: Allergic/Immunologic: Reports no additional allergic/immunologic complaints Exam Const: General: cooperative, comfortable and no acute distress Orientation/consciousness: oriented to person, oriented to place and oriented to time HENMT: Head: normal to inspection Ears: hearing grossly normal bilaterally Eyes: General: appearance normal, both eyes and all related structures Neck: Neck: normal visual inspection Chest: Chest palpation & inspection: normal inspection of the chest Resp: Effort & Inspection: normal respiratory effort and able to speak in complete sentences Auscultation: crackles, no rales, no rhonchi, no wheezes and lung sounds not diminished Other: Diffuse crackles right lung and left base. Improved today Cardio: Jugular venous distension: no JVD Other: Irregularly Irregular GI: Inspection: normal to inspection Skin: General skin exam: normal color Neuro: General: oriented to person, oriented to place and oriented to time Extrem: General: normal to inspection and no edema Psych: Appearance: grossly normal Objective Data Vital Signs Vital Signs: Vital Signs - 24 hr 06/02/25 12:00 06/02/25 12:00 06/02/25 12:16 Temperature 36.9 C Pulse Rate 94 97 94 Respiratory Rate Blood Pressure 97/56 L 97/56 L Pulse Oximetry 93 Oxygen Delivery Oxygen Flow Rate 06/02/25 13:19 06/02/25 13:26 06/02/25 14:00 Temperature 36.7 C Pulse Rate 92 92 92 Respiratory Rate 18 Blood Pressure 118/49 L 118/49 L Pulse Oximetry 92 Oxygen Delivery Oxygen Flow Rate 06/02/25 15:26 06/02/25 16:00 06/02/25 16:12 Temperature Pulse Rate 90 86 90 Respiratory Rate Blood Pressure 121/84 Pulse Oximetry Oxygen Delivery Oxygen Flow Rate 06/02/25 16:13 06/02/25 18:00 06/02/25 19:50 Temperature 36.5 C 36.6 C Pulse Rate 89 100 93 Respiratory Rate 20 20 Blood Pressure 121/84 110/64 Pulse Oximetry 96 94 Oxygen Delivery Oxygen Flow Rate 06/02/25 20:00 06/02/25 20:00 06/02/25 20:30 Temperature Pulse Rate 86 Respiratory Rate Blood Pressure Pulse Oximetry 94 96 Oxygen Delivery Nasal Cannula Nasal Cannula Oxygen Flow Rate 2 2 06/02/25 22:00 06/02/25 23:05 06/02/25 23:11 Temperature 36.7 C Pulse Rate 94 94 Respiratory Rate 20 Blood Pressure 115/55 L Pulse Oximetry 98 97 Oxygen Delivery Nasal Cannula Oxygen Flow Rate 2 06/03/25 00:00 06/03/25 02:00 06/03/25 04:00 Temperature Pulse Rate 91 88 92 Respiratory Rate Blood Pressure Pulse Oximetry Oxygen Delivery Oxygen Flow Rate 06/03/25 04:00 06/03/25 05:13 06/03/25 06:00 Temperature 37.0 C Pulse Rate 91 90 Respiratory Rate 18 Blood Pressure 111/51 L Pulse Oximetry 97 95 Oxygen Delivery Nasal Cannula Oxygen Flow Rate 2 06/03/25 08:13 06/03/25 08:24 06/03/25 08:32 Temperature 36.6 C Pulse Rate 92 92 Respiratory Rate 20 Blood Pressure 110/59 L Pulse Oximetry 93 96 Oxygen Delivery Nasal Cannula Oxygen Flow Rate 2 Intake/Output Intake/Output: Intake & Output 05/31/25 06/01/25 06/02/25 06/03/25 23:59 23:59 23:59 23:59 Intake Total 2313.3 2550.6 2092.8 550 Output Total 1050 2600 800 Balance 1263.3 -49.4 1292.8 550 Meds/Results Medications: Active Medications Generic Name Dose Route Start Last Admin Trade Name Freq PRN Reason Stop Dose Admin Acetaminophen 650 mg 05/26/25 18:40 05/27/25 09:59 Acetaminophen 325 Mg Tablet PO 650 mg Q4H PRN Administration Mild Pain (1-3) or Fever Hydrocodone Bitart/Acetaminophen 1 tab 05/27/25 20:59 05/31/25 11:01 Hydrocodone/Acetaminophen (*Crx) 5-325 Mg Tablet PO 1 tab Q6H PRN Administration Pain Rated 4-10 Amiodarone HCl 200 mg 06/02/25 17:00 06/03/25 08:32 Amiodarone Hcl 200 Mg Tablet PO 200 mg BID IRENE Administration Amitriptyline HCl 150 mg 05/27/25 21:00 06/02/25 22:12 Amitriptyline Hcl 25 Mg Tablet PO 150 mg HS IRENE Administration Azithromycin 500 mg 06/02/25 09:00 06/03/25 08:32 Azithromycin 500 Mg Tablet PO 06/08/25 09:01 500 mg DAILY IRENE Administration Benzonatate 200 mg 05/28/25 14:03 Benzonatate 100 Mg Capsule PO TID PRN Cough Bupropion HCl 150 mg 05/26/25 21:15 06/02/25 22:12 Bupropion Hcl Xl (24 Hr) 150 Mg Tabcr PO 150 mg HS IRENE Administration Buspirone HCl 10 mg 06/02/25 21:00 06/03/25 08:32 Buspirone Hcl 10 Mg Tablet PO 10 mg Q12HR IRENE Administration Calcium Citrate 2 tablet 06/02/25 21:00 06/03/25 08:32 Calcium Citrate 315 Mg/Vitamin D 6.25 Mcg (250 Units) Tab PO 2 tablet Q12HR IRENE Administration Diazepam 5 mg 05/30/25 09:56 05/31/25 12:03 Diazepam Inj (*Crx) 10 Mg/2 Ml Syringe IV PUSH 5 mg Q8HR PRN Administration Muscle Spasm Diltiazem HCl 240 mg 05/30/25 09:00 06/03/25 08:32 Diltiazem Hcl Cd 120 Mg Cap.24hr PO 240 mg QAM IRENE Administration Diphenhydramine HCl 25 mg 05/29/25 13:09 Diphenhydramine Hcl Cap 25 Mg Capsule PO Q6H PRN Itching Docusate Sodium 100 mg 06/02/25 09:20 06/03/25 08:32 Docusate Sodium 100 Mg Capsule PO 100 mg Q12HR IRENE Administration Furosemide 20 mg 05/29/25 09:00 06/03/25 08:32 Furosemide 20 Mg Tablet PO 20 mg DAILY IRENE Administration Gabapentin 800 mg 05/26/25 21:15 06/03/25 08:31 Gabapentin 400 Mg Capsule PO 800 mg Q12HR IRENE Administration Guaifenesin 1,200 mg 05/26/25 21:40 06/03/25 08:31 Guaifenesin 12 Hr 600 Mg Tabcr PO 1,200 mg Q12HR IRENE Administration Ceftriaxone Sodium 1 gm/ 50 mls @ 100 mls/hr 05/31/25 10:00 06/02/25 09:04 Sodium Chloride IVPB 100 mls/hr Q24H IRENE Administration Ketorolac Tromethamine 30 mg 05/30/25 10:25 06/01/25 22:08 Ketorolac 30 Mg/Ml Vial (*Bkc) IV PUSH 30 mg Q6H PRN Administration Pain Rated 4-6 Levothyroxine Sodium 75 mcg 05/27/25 06:30 06/03/25 06:28 Levothyroxine Sodium 75 Mcg Tablet PO 75 mcg DAILY@0630 IRENE Administration Lidocaine 1 patch 05/28/25 14:05 06/03/25 08:35 Lidocaine 5% Patch TRANSDERM Not Given DAILY [facility] Miscellaneous Information 1 each 06/02/25 00:01 Please Clarify How Much Bupropion Xl Patient Is Taking. It Was Entered As 150 Mg Daily But XX 07/02/25 00:00 CLARIFY IRENE Multivitamins/Minerals 1 tab 05/27/25 09:00 06/03/25 08:31 Multivitamins /C Lutein (Centrum Silver) Tablet *Bkc PO 1 tab DAILY IRENE Administration Ondansetron HCl 4 mg 05/26/25 21:08 Ondansetron Inj 4 Mg/2 Ml Vial IV PUSH Q6H PRN Nausea And Vomiting Pantoprazole Sodium 40 mg 05/27/25 09:00 06/03/25 08:31 Pantoprazole 40 Mg Tablet PO 40 mg QAM IRENE Administration Polyethylene Glycol 17 gm 06/02/25 09:20 06/03/25 08:30 Polyethylene Glycol 3350 17 Gm Powd.Pack PO Not Given QAM IRENE Quetiapine Fumarate 100 mg 05/26/25 21:40 06/02/25 22:11 Quetiapine Fumarate 100 Mg Tablet PO 100 mg HS IRENE Administration Quetiapine Fumarate 50 mg 05/26/25 21:40 06/02/25 22:11 Quetiapine Fumarate 25 Mg Tablet PO 50 mg HS IRENE Administration Rivaroxaban 20 mg 05/30/25 17:00 06/02/25 16:12 Rivaroxaban 20 Mg Tablet PO 20 mg DAILY@1700 IRENE Administration Sodium Chloride 1 spray 05/29/25 13:08 05/29/25 19:46 Saline 0.65% Slim Soln 44 Ml Btl NASAL 1 spray Q6HR PRN Administration Congestion Vitamin D 125 mcg 05/27/25 09:00 06/03/25 08:32 Cholecalciferol (Vitamin D3) 125 Mcg (5,000 Units) Tablet PO 125 mcg DAILY IRENE Administration Radiology Results: ITS Impressions Chest CTA 05/26/25 18:29 IMPRESSION: 1. Extensive bilateral airspace disease, compatible with pneumonia, right greater than left. 2: Enlarged mediastinal and right hilar lymph nodes, likely reactive. Abdomen Ultrasound 05/27/25 09:25 IMPRESSION: 1. Hepatomegaly, with steatosis and/or diffuse hepatocellular disease. 2. Cirrhosis not excluded. Shoulder CT 05/30/25 11:01 IMPRESSION: 1. Polyarticular osteoarthritis. 2. Diffuse right lung disease, consistent with pneumonia. 3. Small right pleural effusion. Cervical Spine CT 05/30/25 11:04 IMPRESSION: 1. Severe cervical spondylosis, stable from 12/15/2024. 2. Anterior fusion procedure from C4 to C6. 3. Bilateral pneumonia. Chest X-Ray 06/02/25 07:44 Impression: 1: Asymmetric right-sided airspace disease, compatible with pneumonia without significant change. Labs Labs: Laboratory Results - last 24 hr 06/02/25 06/03/25 13:19 05:10 WBC 7.6 RBC 3.47 L Hgb 11.2 L Hct 35.9 L MCV 103.5 H MCH 32.3 MCHC 31.2 L RDW 14.6 H Plt Count 300 MPV 9.0 Sodium 137 Potassium 4.0 Chloride 102 Carbon Dioxide 32 H Anion Gap 3 L BUN 18 H Creatinine 1.10 H Estim Creat Clear Calc 62 Estimated GFR 50 L Glucose 86 POC Capillary Glucose 161 H Calcium 8.5 Magnesium 2.1 Total Bilirubin 0.1 L AST 25 ALT 29 Alkaline Phosphatase 104 Total Protein 5.5 L Albumin 2.9 L
[2025-06-03] MEDS: cefTRIAXone 1 GM in SODIUM CHLORIDE 0.9% IV 50 ML 100 ML IVPB (11:01)
--- NOTE | 2025-06-03 12:00 | HOMEO2EVAL ---
Evaluation was performed at [facility] Home Oxygen Evaluation RC: Home Oxygen (O2) Evaluation Start: 06/03/25 10:01 Freq: ONCE Status: Active Protocol: RPE Activity Type Activity Date Activity User E-sign Co-sign Detail Recorded Client Recorded Date Recorded By Document 06/03/25 11:00 [email or web address] [email or web address] 06/03/25 12:00 DJO Document 06/03/25 11:05 [email or web address] 06/03/25 12:00 DJO Document 06/03/25 11:10 [email or web address] [email or web address] 06/03/25 12:00 DJO Document 06/03/25 11:15 [email or web address] 06/03/25 12:00 DJO Document 06/03/25 11:20 [email or web address] [email or web address] 06/03/25 12:00 DJO Document 06/03/25 11:25 [email or web address] [email or web address] 06/03/25 12:00 DJO Document 06/03/25 11:30 [email or web address] [email or web address] 06/03/25 12:00 DJO Document 06/03/25 11:59 [email or web address] [email or web address] 06/03/25 12:00 DJO 06/03/25 06/03/25 06/03/25 11:00 11:05 11:10 Home O2 Evaluation [Oxygen] -Test Phase Resting Exercise Exercise -Oxygen Delivery Room Air Room Air Nasal Cannula -Oxygen Flow Rate (L/min) 1 [Pulse Oximetry] -Pulse Oximetry (90-100 %) 91 84 L 85 L [Pulse Rate] -Pulse Rate (60-100 beats/min) 92 115 H 118 H [Evaluation] -Activity Tolerance [Charges] -Evaluation Charges O2 Evaluation by Pulmonary 06/03/25 06/03/25 06/03/25 11:15 11:20 11:25 Home O2 Evaluation [Oxygen] -Test Phase Exercise Exercise Exercise -Oxygen Delivery Nasal Cannula Nasal Cannula Nasal Cannula -Oxygen Flow Rate (L/min) 2 3 4 [Pulse Oximetry] -Pulse Oximetry (90-100 %) 86 L 87 L 88 L [Pulse Rate] -Pulse Rate (60-100 beats/min) 118 H 117 H 120 H [Evaluation] -Activity Tolerance [Charges] -Evaluation Charges 06/03/25 06/03/25 11:30 11:59 Home O2 Evaluation [Oxygen] -Test Phase Exercise Resting -Oxygen Delivery Nasal Cannula Room Air -Oxygen Flow Rate (L/min) 5 [Pulse Oximetry] -Pulse Oximetry (90-100 %) 91 91 [Pulse Rate] -Pulse Rate (60-100 beats/min) 121 H 94 [Evaluation] -Activity Tolerance Fair [Charges] -Evaluation Charges
--- NOTE | 2025-06-03 12:46 | P.DS_ITS ---
DS: Admitting Diagnosis Discharge Date 06/03/2025 Admitting Diagnosis Shortness of breath DS: Discharge Diagnosis Discharge Diagnosis (1) Hypertension: Code(s): I10 - Essential (primary) hypertension Status: Chronic (2) Atrial fibrillation with rapid ventricular response: Code(s): I48.91 - Unspecified atrial fibrillation Status: Acute (3) Hypothyroidism: Code(s): E03.9 - Hypothyroidism, unspecified Status: Chronic (4) Hypoxia: Code(s): R09.02 - Hypoxemia Status: Acute (5) Community acquired pneumonia: Code(s): J18.9 - Pneumonia, unspecified organism Status: Acute (6) Acute respiratory failure with hypoxia: Code(s): J96.01 - Acute respiratory failure with hypoxia Status: Acute DS: Summary Hospital Course Hospital Course: 65-year-old female patient with history of obesity, depression, anemia, anxiety, GERD, hypertension who presented to the emergency room today with complaints of 3 days of headache, cough, shortness of breath, in generalized malaise and fatigue. Chest x-ray showed bilateral pneumonia and CT chest PE protocol shows extensive bilateral airspace disease compatible with pneumonia, right greater the left. There are also enlarged mediastinal and right hilar lymph nodes are likely reactive. There is no pulmonary embolism. (1) Acute respiratory failure with hypoxia: Secondary to community-acquired pneumonia Continue with O2 support Currently on 1-2 L Pulmonary following CTA chest with no PE Continue ceftriaxone and azithromycin Solu-Medrol has been stopped Mycoplasma IgM is negative Walk test performed prior to discharge and requires 5 L oxygen with ambulation and 3 L at night Blood cultures have been negative till date Switched to oral levofloxacin at discharge for 2 more days. (2) Atrial fibrillation with rapid ventricular response: Continue with tele monitoring Cardiology following Echocardiogram with LVEF of 65-70% Currently on amiodarone drip Continue with Cardizem Spontaneously converted to sinus rhythm 06/02/2025 afternoon. On amiodarone oral Continue with Xarelto (3) Transaminitis: Liver enzymes have normalized Hepatitis panel was negative (4) Anxiety: Continue home medications of Wellbutrin, BuSpar, Seroquel (5) Hypertension: Continue with Cardizem Not on any other antihypertensives (6) GERD (gastroesophageal reflux disease): Continue with PPI (7) Hypothyroidism: Continue levothyroxine 8. Code status: Full code 9. DVT prophylaxis: Xarelto Time Spent with Patient Time attestation: Total time spent providing and/or coordinating discharge services: 35 minutes Exam Narrative: APPEARANCE: Alert and oriented x3 not in acute distress HEAD: normocephalic, atraumatic. EYES: PERRLA/EOMI, conjunctivae clear. NOSE: Normal no drainage Mouth: Extensive dental decay and multiple tooth extractions NECK: Supple. No adenopathy, no masses. RESPIRATORY: Decreased lung sounds bilaterally, no significant wheeze CARDIOVASCULAR: Regular rate and rhythm without murmurs rubs or gallops. ABDOMINAL: Soft, nontender, nondistended, normal bowel sounds MUSCULOSKELETAL: Moves all extremities. Strength/ROM intact, No edema, No calf tenderness. NEURO: Alert. Cranial nerves II through XII intact. Good gait. Good coordination SKIN: Warm, dry. Normal Color DS: Data Data Completed and Pending Completed studies during hospitalization: Exam Type: CA echo doppler color flow Complete two-dimensional, color flow and Doppler transthoracic echocardiogram is performed. Staff Referring Physician: Alma Pederson Java Architect: Sandhya Brush Attending Provider: Parvez Means MD Summary 1. Complete two-dimensional, color flow and Doppler transthoracic echocardiogram is performed. 2. Small amount of mitral and tricuspid regurgitation. 3. Otherwise structurally normal appearing heart. 4. Atrial fibrillation. Left Ventricle Left ventricular chamber dimension is normal. Left ventricular systolic function is normal, estimated at 65-70. Right Ventricle Right ventricular chamber dimension is normal. Left Atria Left atrial chamber dimension is normal. Right Atria Right atrial chamber dimension is normal. Aortic Valve The aortic valve is normal. Pulmonic Valve The pulmonic valve is normal. Mitral Valve The mitral valve has normal leaflets. There is trace mitral valve regurgitation. Tricuspid Valve The tricuspid valve leaflets are normal. There is mild tricuspid valve regurgitation. Pericardium/Pleural The pericardium appears normal. Aorta The aortic root size at the sinus of Valsalva is normal. Labs on day of discharge: Labs from last 24 hours 06/03/25 06/02/25 05:10 13:19 WBC 7.6 RBC 3.47 L Hgb 11.2 L Hct 35.9 L MCV 103.5 H MCH 32.3 MCHC 31.2 L RDW 14.6 H Plt Count 300 MPV 9.0 Sodium 137 Potassium 4.0 Chloride 102 Carbon Dioxide 32 H Anion Gap 3 L BUN 18 H Creatinine 1.10 H Estim Creat Clear Calc 62 Estimated GFR 50 L Glucose 86 POC Capillary Glucose 161 H Calcium 8.5 Magnesium 2.1 Total Bilirubin 0.1 L AST 25 ALT 29 Alkaline Phosphatase 104 Total Protein 5.5 L Albumin 2.9 L Preliminary micro results at discharge 05/31/25 10:37 Sputum Culture - Preliminary Sputum Yeast Imaging Radiologist's impression: ITS Impressions Chest X-Ray 05/26/25 16:55 Impression: Bilateral pneumonia Chest CTA 05/26/25 18:29 IMPRESSION: 1. Extensive bilateral airspace disease, compatible with pneumonia, right greater than left. 2: Enlarged mediastinal and right hilar lymph nodes, likely reactive. Abdomen Ultrasound 05/27/25 09:25 IMPRESSION: 1. Hepatomegaly, with steatosis and/or diffuse hepatocellular disease. 2. Cirrhosis not excluded. Chest X-Ray 05/27/25 21:20 Impression: 1: Interval progression of right-sided airspace disease, compatible with pneumonia. Chest X-Ray 05/28/25 10:28 IMPRESSION: 1. No significant change. 2. Bilateral pneumonia, right lung worse. Chest X-Ray 05/30/25 08:25 Impression: Interval progression Shoulder CT 05/30/25 11:01 IMPRESSION: 1. Polyarticular osteoarthritis. 2. Diffuse right lung disease, consistent with pneumonia. 3. Small right pleural effusion. Cervical Spine CT 05/30/25 11:04 IMPRESSION: 1. Severe cervical spondylosis, stable from 12/15/2024. 2. Anterior fusion procedure from C4 to C6. 3. Bilateral pneumonia. Chest X-Ray 06/02/25 07:44 Impression: 1: Asymmetric right-sided airspace disease, compatible with pneumonia without significant change. Discharge Plan Discharge Attending physician on discharge: Samm Harris Consulting providers: Loni Pettit; Renny Davis; Rita Garza; Jay Saha Discharging Clinician: Samm Harris Anticipated Discharge Date/Time: 06/03/25 12:48 Patient Disposition: Home Activity: as tolerated Diet: heart healthy Discharge Instructions: Oxygen 5 L with activity, 3 L at bedtime Follow-up with your analyst business analysis in 2-3 weeks. Call for appointment. Patient Instructions: Antibiotic Form Patient Language: Danish Stand Alone Forms: General Discharge Information Follow-up/Referrals: Gabino,MD Adis [Primary Care Provider, Unknown] - 1 Week Discharge Medications: New guaifenesin [Mucus Relief ER] 600 mg Tablet Extended Release 12hr 1,200 mg PO Q12HR PRN (Reason: congestion) Qty: 60 0RF furosemide 20 mg Tablet 20 mg PO DAILY Qty: 30 0RF diltiazem HCl [Cartia XT] 240 mg capsule,extended release 24hr 240 mg PO QAM Qty: 30 0RF Xarelto 20 mg Tablet 20 mg PO DAILY@1700 Qty: 30 0RF polyethylene glycol 3350 [Miralax] 17 gram Powder In Packet 17 g PO QAM PRN (Reason: constipation) Qty: 30 0RF amiodarone [Pacerone] 200 mg Tablet See Rx Instructions .ROUTE .COMPLEX Qty: 37 0RF Rx Instructions: Take 200 mg twice a day for 1 week then 200 mg daily thereafter. levofloxacin 750 mg tablet 750 mg PO DAILY Qty: 2 0RF Continued bupropion HCl 300 mg tablet extended release 24 hr 150 mg PO .HS levothyroxine [Synthroid] 75 mcg tablet 75 mcg PO DAILY Centrum 18-400 mg-mcg tablet 1 tablet PO DAILY quetiapine 100 mg tablet 100 mg PO HS omeprazole 20 mg capsule,delayed release(DR/EC) 20 mg PO DAILY Patient Comments: every other day quetiapine 50 mg tablet 50 mg PO DAILY buspirone 10 mg Tablet 10 mg PO .BID cholecalciferol (vitamin D3) 125 mcg (5,000 unit) capsule 125 mcg PO DAILY calcium citrate 200 mg (950 mg) tablet 600 mg PO BID gabapentin 800 mg Tablet 800 mg PO QID amitriptyline 150 mg tablet 150 mg PO DAILY Discontinued carvedilol 6.25 mg tablet 6.25 mg PO BID Other Ambulatory Orders: Complete Blood Count with Diff (Routine) Timeframe: 1 Week Location: Determined by Patient Ordered By: Samm Harris Comprehensive Metabolic Panel (Routine) Timeframe: 1 Week Location: Determined by Patient Ordered By: Samm Harris Date of admission: 05/27/25 07:40 Primary Care Provider: GabinoAdis Admitting Provider: Parvez Means Attending physician on admission: Parvez Means Condition: Improved
--- NOTE | 2025-06-03 14:06 | PCRCNOTE ---
HOME O2 EVAL COMPLETE. PT REQUIRES 5L WITH ACTIVITY AND 3L NOC. SET UP WITH IV & RESP CARE. PHONE NUMBER [phone]
== END 2025-06-03 13:50 | disposition home or self-care (01) | DRG 193 ==
LOC: ANHED 18:50 → ANH3MED 19:38 → ANHIMU 05-27 14:57
PROVIDERS: Internal Medicine; Internal Medicine Pulmonary Disease; Nurse Practitioner Adult Health; Nurse Practitioner Family; Admitting Provider Internal Medicine; Emergency Provider Emergency Medicine; PCP Family Medicine; Visit Provider Internal Medicine
DX: J18.9 Pneumonia, unspecified organism (principal); J96.01 Acute respiratory failure with hypoxia; I10 Essential (primary) hypertension; I48.91 Unspecified atrial fibrillation; D64.9 Anemia, unspecified; R00.0 Tachycardia, unspecified; E03.9 Hypothyroidism, unspecified; K21.9 Gastro-esophageal reflux disease without esophagitis; M25.511 Pain in right shoulder; M17.12 Unilateral primary osteoarthritis, left knee; G62.9 Polyneuropathy, unspecified; F32.A Depression, unspecified; F41.9 Anxiety disorder, unspecified; Z20.822 Contact with and (suspected) exposure to COVID-19; Z98.84 Bariatric surgery status
CPT/HCPCS: 36415; 36600; 71045; 71275; 72125; 73200; 76705; 80053; 80061; 80074; 82375; 82805; 82948; 83050; 83735; 83880; 84145; 84443; 84484; 85018; 85025; 85027; 86140; 86738; 87040; 87070; 87205; 87449; 87637; 87641; 87899; 93005; 93306; 94618; 94640; 94667; 94668; 94762; 96361; 96374; 96375; 97110; 97162; 97166; 97530; 99285; A9270; G0378; J0282; J0283; J0456; J0616; J0696; J0780; J1160; J1163; J1200; J1650; J1720; J1885; J2185; J3360; J7030; J7050; J7120; Q9967